=== PATIENT | female | born 1965 | race Caucasian/White ===

== ENCOUNTER 2017-10-04 15:43 | Observation (INO) | payer OTHER ==
--- OUTSIDE RECORDS SUMMARY | 2017-10-04 16:24 | XMS REPORT | Clinical Summary ---
:1965 Author Organization [facility] Address [address] [place] [id number] Care Team Providers Name Role Phone Asked, No Pcp Primary Care Provider Unavailable Allergies Active Allergy Reactions Severity Noted Date Comments Adhesive Tape-Silicones 06/22/2017 blisters Prochlorperazine Edisylate 06/22/2017 Legs go violently crazy Current Medications Prescription Sig. Disp. Refills Start End Date Status Date CYANOCOBALAMIN, Inject as Active VITAMIN B-12, (B-12 directed every COMPLIANCE INJ) 14 (fourteen) days. cholecalciferol, Take 2,000 Units Active vitamin D3, (VITAMIN by mouth daily. D3) 2,000 unit capsule capsule oxyCODone Take 1 tablet 180 tablet 0 11/02/19 Active (OxyCONTIN) 10 mg (10 mg total) by 8 18 tablet,oral mouth every 12 only,ext.rel.12 hr (twelve) hours ER tablet for 90 days. Max Daily Amount: 20 mg oxyCODone-acetaminop Take 1 tablet by 90 tablet 0 11/02/19 Active hen (PERCOCET) mouth every 4 8 18 10-325 mg per tablet (four) hours as needed for moderate pain for up to 90 days. traMADol (ULTRAM) 50 Take 50 mg by 08/04/19 Discontinued mg tablet mouth every 6 18 (six) hours as needed for moderate pain. HYDROMORPHONE HCL Inject as 08/04/19 Discontinued (DILAUDID INJ) directed. Via 18 med pump diphenhydrAMINE Take 25 mg by 08/04/19 Discontinued (BENADRYL) 25 mg mouth nightly as 18 tablet needed for sleep. naproxen sodium Take 2 tablets 08/04/19 Discontinued (ALEVE) 220 mg by mouth 18 capsule nightly. acetaminophen-codein Take 1 tablet by 08/04/19 Discontinued e (TYLENOL WITH mouth every 4 18 CODEINE #3) 300-30 (four) hours as mg per tablet needed for moderate pain. gabapentin Take 200 mg by 08/04/19 Discontinued (NEURONTIN) 100 mg mouth 3 (three) 18 capsule times a day. diazePAM (VALIUM) 5 Take 1 tablet (5 20 tablet 0 08/06/19 MG tablet mg total) by 8 18 mouth every 6 (six) hours as needed for anxiety for up to 5 days. gabapentin Take 1 capsule 21 capsule 0 08/08/19 (NEURONTIN) 400 mg (400 mg total) 8 18 capsule by mouth every 8 (eight) hours for 7 days. tiZANidine Take 1 tablet (4 40 tablet 0 08/31/19 (ZANAFLEX) 4 MG mg total) by 8 18 tablet mouth every 6 (six) hours as needed for muscle spasms for up to 30 days. amitriptyline Take 1 tablet 30 tablet 0 09/03/19 (ELAVIL) 50 MG (50 mg total) by 8 18 tablet mouth nightly for 30 days. bacitracin ointment Apply 1 60 g 0 09/03/19 tube application (1 g 8 18 total) topically 2 (two) times a day for 30 days. naloxegol (MOVANTIK) Take 1 tablet 30 tablet 0 09/04/19 25 mg tablet tablet (25 mg total) by 8 18 mouth daily before breakfast for [address] 1 patch on 10 patch 0 09/04/19 (TRANSDERM-SCOP) 1 the skin every 8 18 mg over 3 days third day for 30 days. sennosides-docusate Take 2 tablets 120 tablet 0 09/03/19 sodium (SENOKOT-S) by mouth 2 (two) 8 18 8.6-50 mg per tablet times a day for 30 days. 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 Spinal instability 07/10/2017 Encounters Date Type Specialty Care Team Description 07/20/2017 Hospital Encounter Rehabilitation Vani Montes S/Leigh Ann spinal fusion (Primary Dx); Sandi Morrissey MD Gait abnormality; 08/03/2017 Chronic bilateral low back pain without sciatica; Spinal instability, unspecified spinal region 07/18/2017 Procedure Pass General Surgery 07/14/2017 Anesthesia Event General Surgery Merissa Mcpherson MD 07/14/2017 Procedure Pass General Surgery 07/14/2017 Surgery General Surgery Benny, REVISION POSTERIOR Mal Rodriguez MD SPINAL INSTRUMENTATION / FUSION T3-S1 PELVIS 07/11/2017 Procedure Pass General Surgery 07/10/2017 Hospital Encounter Orthopedic Surgery Benny, Sagittal plane - Mal Rodriguez MD imbalance 07/20/2017 06/22/2017 Pre-Admit Testing Pre-Admission Testing Benny, Preop examination Appointment Mal Rodriguez MD (Primary Dx) after 10/03/2016 Social History Tobacco Use Types Packs/Day Years Used Date Current Every Day Smoker Cigarettes 1 18 Smokeless Tobacco: Never Used Alcohol Use Drinks/Week oz/Week Comments No Sex Assigned at Date Recorded Not on file Last Filed Vital Signs Vital Sign Reading Time Taken Blood Pressure 103/57 08/03/2017 3:49 PM CDT Pulse 87 08/03/2017 3:49 PM CDT Temperature 36.4 C (97.5 F) 08/03/2017 3:49 PM CDT Respiratory Rate 17 08/03/2017 3:49 PM CDT Oxygen Saturation 92% 08/03/2017 3:49 PM CDT Inhaled Oxygen Concentration - - Weight 109 kg (240 lb) 07/16/2017 6:56 AM CDT Height 167.6 cm (5' 6") 07/20/2017 6:00 PM CDT Body Mass Index 41.2 07/16/2017 6:56 AM CDT Plan of Treatment Health Maintenance Due Date Last Done Comments CERVICAL CANCER SCREENING 10/08/1984 BREAST CANCER SCREENING 10/08/2013 COLON CANCER SCREENING 10/08/2013 SHINGRIX VACCINE (#1) 10/08/2013 INFLUENZA VACCINE 11/22/2017 Implants Implanted Type Area Primary Grade Teacher Device Expiration Model / Serial Identifier Date / Lot System Spine Selnt For Dural Selng Exact 5ml Duraseal - [id number] Cardiovascular N/A: INTEGRA 06/21/2018 [id number] / Implanted: Qty: 1 on 07/14/2017 by Mal Zapata MD Implants N/A LIFESCIENCE / NEURO [id number] Paste Dbm Easy-Dispensing Wdmth Syr 10ml [address] - [id number] - [id number] Human Tissue N/A: MEDTRONIC SPINAL 03/09/2019 [id number] / Implanted: Qty: 1 on 07/14/2017 by Mal Zapata MD Implants N/A GRAFT [id number] / TECHNOLOGIES [id number] Paste Dbm Easy-Dispensing Wdmth Syr 10ml [address] - [id number] - [id number] Human Tissue N/A: MEDTRONIC SPINAL 01/05/2019 [id number] / Implanted: Qty: 1 on 07/14/2017 by Mal Zapata MD Implants N/A GRAFT [id number] / TECHNOLOGIES [id number] Chip Canc Allograft Leader Frzdri 30cc 1.7-10mm - [id number] - [id number] Human Tissue N/A: MUSCULOSKELETAL 04/20/2020 [id number] / Implanted: Qty: 1 on 07/14/2017 by Mal Zapata MD Implants N/A TRANSPLANT [id number] / FOUNDATION [id number] Chip Canc Allograft Leader Frzdri 30cc 1.7-10mm - [id number] - [id number] Human Tissue N/A: MUSCULOSKELETAL 12/08/2019 [id number] / Implanted: Qty: 1 on 07/14/2017 by Mal Zapata MD Implants N/A TRANSPLANT [id number] / FOUNDATION [id number] Paste Dbm Easy-Dispensing Wdmth Syr 10ml [address] - [id number] - [id number] Human Tissue N/A: MEDTRONIC SPINAL 03/09/2019 [id number] / Implanted: Qty: 1 on 07/14/2017 by Mal Zapata MD Implants N/A GRAFT [id number] / TECHNOLOGIES [id number] Paste Dbm Easy-Dispensing Wdmth Syr 10ml [address] - [id number] - [id number] Human Tissue N/A: MEDTRONIC SPINAL 01/05/2019 [id number] / Implanted: Qty: 1 on 07/14/2017 by Mal Zapata MD Implants N/A GRAFT [id number] / TECHNOLOGIES [id number] Screw [id number] 5.5 Mas 6.5x40 Cc - [id number] [id number] IMPLANT N/A: MEDTRONIC [id number] / Implanted: Qty: 3 on 07/14/2017 by Mal Zapata MD DEVICES N/A SOFAMOR DANEK / Screw [id number] 5.5 Mas 6.5x45 Cc - [id number] [id number] IMPLANT N/A: MEDTRONIC [id number] / Implanted: Qty: 4 on 07/14/2017 by Mal Zapata MD DEVICES N/A SOFAMOR DANEK / Sin [id number] 5.7pglovqzgeunqz330shvvet - [id number] IPM IMPLANT N/A: MEDTRONIC [id number] / Implanted: Qty: 2 on 07/14/2017 by Mal Zapata MD DEVICES N/A SOFAMOR DANEK / Screw [id number] 5.5 Mas 5.5x40 Cc - [id number] IPM IMPLANT N/A: MEDTRONIC [id number] / Implanted: Qty: 4 on 07/14/2017 by Mal Zapata MD DEVICES N/A SOFAMOR DANEK / Screw [id number] 5.5 Mas 6.5x55 Cc - [id number] IPM IMPLANT N/A: MEDTRONIC [id number] / Implanted: Qty: 1 on 07/14/2017 by Mal Zapata MD DEVICES N/A SOFAMOR DANEK / Screw [id number] 5.5 Mas 8.5x50 Cc - [id number] IPM IMPLANT N/A: MEDTRONIC [id number] / Implanted: Qty: 1 on 07/14/2017 by Mal Zapata MD DEVICES N/A SOFAMOR DANEK / Screw [id number] 5.5 Mas 8.5x55 Cc - [id number] IPM IMPLANT N/A: MEDTRONIC [id number] / Implanted: Qty: 1 on 07/14/2017 by Mal Zapata MD DEVICES N/A SOFAMOR DANEK / Screw [id number] Bs Cnmas 7.5x90 T/C - [id number] IPM IMPLANT N/A: MEDTRONIC [id number] / Implanted: Qty: 2 on 07/14/2017 by Mal Zapata MD DEVICES N/A SOFAMOR DANEK / Connector [id number] 5/6-6.0 Clsd Lat 25 - [id number] IPM IMPLANT N/A: MEDTRONIC [id number] / Implanted: Qty: 3 on 07/14/2017 by Mal Zapata MD DEVICES N/A SOFAMOR DANEK / Screw [id number] 5.5 Mas 5.5x25 Cc - [id number] IPM IMPLANT N/A: MEDTRONIC [id number] / Implanted: Qty: 2 on 07/14/2017 by Mal Zapata MD DEVICES N/A SOFAMOR DANEK / Screw [id number] 5.5 Mas 6.5x35 Cc - [id number] [id number] IMPLANT N/A: MEDTRONIC [id number] / Implanted: Qty: 1 on 07/14/2017 by Mal Zapata MD DEVICES N/A SOFAMOR DANEK / Screw [id number] 5.5 Mas 9.5x50 Cc - [id number] IPM IMPLANT N/A: MEDTRONIC [id number] / Implanted: Qty: 1 on 07/14/2017 by Mal Zapata MD DEVICES N/A SOFAMOR DANEK / Screw [id number] 5.5 Mas 10.5x50 Cc - [id number] IPM IMPLANT N/A: MEDTRONIC [id number] / Implanted: Qty: 1 on 07/14/2017 by Mal Zapata MD DEVICES N/A SOFAMOR DANEK / Sin [id number] 5.[address] 600mm - [id number] IPM IMPLANT N/A: MEDTRONIC 04/04/2020 [id number] / Implanted: Qty: 1 on 07/14/2017 by Mal Zapata MD DEVICES N/A SOFAMOR DANEK / [id number] Screw Bone Canc Lag 4x30mm Ns - [id number] Orthopedic N/A: MEDTRONIC [id number] / Implanted: Qty: 21 on 07/14/2017 by Mal Zapata MD Trauma Implants N/ A SOFAMOR DANEK / Screw Set Std Ti 1/4in 32mm - [id number] Spinal Implants N/A: MEDTRONIC SPINAL [id number] / Implanted: Qty: 7 on 07/14/2017 by Mal Zapata MD N/A AND BIOLOGICS / Connector Sin Spinal Ti 5.5x5.5mm Strl - [id number] Spinal Implants N/A: MEDTRONIC SPINAL [id number] / Implanted: Qty: 2 on 07/14/2017 by Mal Zapata MD N/A AND BIOLOGICS / Kit Hemostatic Matrix W/Thrombin 8ml Surgiflo - [id number] [facility] N/A: [facility]2018 2994 / Implanted: Qty: 3 on 07/14/2017 by Mal Zapata MD Implants; N/A / Expanders; [id number] Extenders; Surgical Wires Matrix Hmstc Floseal 10ml W/ Humn F2 - [id number] Surgical N/A: MICHAEL [id number] / Implanted: Qty: 1 on 07/14/2017 by Mal Zapata MD Implants; N/A HEALTHCARE CHIP / Expanders; [id number] Extenders; Surgical Wires Kit Hemostatic Matrix W/Thrombin 8ml Surgiflo - [id number] Surgical N/A: [facility] 08/21/2018 2994 / Implanted: Qty: 1 on 07/14/2017 by Mal Zapata MD Implants; N/A / Expanders; [id number] Extenders; Surgical Wires Drain Wound Hbls Round Radopaq Trocar Madeline White 0.18in 15fr - [id number] Surgical N/A: [facility] / Implanted: Qty: 1 on 07/14/2017 by Mal Zapata MD Implants; N/A REED & / Expanders; REED Extenders; Surgical Wires Drain Wound Hbls Round Radopaq Trocar Madeline White 0.18in 15fr - [id number] Surgical N/A: [facility] / Implanted: Qty: 1 on 07/14/2017 by Mal Zapata MD Implants; N/A REED & / Expanders; REED Extenders; Surgical Wires Kit Hemostatic Matrix W/Thrombin 8ml Surgiflo - [id number] Surgical N/A: [facility] 10/21/2018 2994 / Implanted: Qty: 2 on 07/14/2017 by Mal Zapata MD Implants; N/A / Expanders; [id number] Extenders; Surgical Wires Kit Hemostatic Matrix W/Thrombin 8ml Surgiflo - [id number] Surgical N/A: [facility] 09/21/2018 2994 / Implanted: Qty: 1 on 07/14/2017 by Mal Zapata MD Implants; N/A / Expanders; [id number] Extenders; Surgical Wires Kit Hemostatic Matrix W/Thrombin 8ml Surgiflo - [id number] Surgical N/A: [facility] 09/21/2018 2994 / Implanted: Qty: 1 on 07/14/2017 by Mal Zapata MD Implants; N/A / Expanders; [id number] Extenders; Surgical Wires Kit Hemostatic Matrix W/Thrombin 8ml Surgiflo - [id number] Surgical N/A: [facility] 10/21/2018 2994 / Implanted: Qty: 2 on 07/14/2017 by Mal Zapata MD Implants; N/A / Expanders; [id number] Extenders; Surgical Wires Kit Hemostatic Matrix W/Thrombin 8ml Surgiflo - [id number] Surgical N/A: [facility] 09/21/2018 2994 / Implanted: Qty: 1 on 07/14/2017 by Mal Zapata MD Implants; N/A / Expanders; [id number] Extenders; Surgical Wires Kit Hemostatic Matrix W/Thrombin 8ml Surgiflo - [id number] Surgical N/A: [facility] 09/21/2018 2994 / Implanted: Qty: 1 on 07/14/2017 by Mal Zapata MD Implants; N/A / Expanders; [id number] Extenders; Surgical Wires Kit Hemostatic Matrix W/Thrombin 8ml Surgiflo - [id number] Surgical N/A: [facility] 09/21/2018 2994 / Implanted: Qty: 1 on 07/14/2017 by Mal Zapata MD Implants; N/A / Expanders; [id number] Extenders; Surgical Wires Kit Hemostatic Matrix W/Thrombin 8ml Surgiflo - [id number] Surgical N/A: [facility] 09/21/2018 2994 / Implanted: Qty: 1 on 07/14/2017 by Mal Zapata MD Implants; N/A / Expanders; [id number] Extenders; Surgical Wires Explanted Type Area Primary Grade Teacher Device Expiration Model / Identifier Date Serial / Lot Screw [id number] 5.5 Mas 5.5x45 Cc - [id number] N/A: MEDTRONIC [id number] / Implanted: 07/14/2017 (Quantity not on file) IMPLANT N/A SOFAMOR DANEK / Explanted: Qty: 1 on 07/14/2017 DEVICES Procedures Procedure Name Priority Date/Time Associated Comments Diagnosis INTRAOPERATIVE Routine 07/14/2017 4:19 Results for this MONITORING PM CDT procedure are in the results section. ARTERIAL LINE Routine 07/14/2017 9:27 AM CDT Procedure Note - Nimo Dillard, [employer] TEAM MEMBER - 07/14/2017 9:27 AM CDT Arterial line Performed by: NIMO DILLARD Authorized by: YOVANY GODINEZ Patient Location: OR Start Time: 07/14/2017 8:00 AM End Time: 07/14/2017 8:05 AM Staff: Anesthesiologist: YOVANY GODINEZ Performed by: Anesthesiologist Pre-procedure: patient identified, IV checked, site and side verified, risks and benefits discussed, procedure verified, surgical consent complete, patient position confirmed, monitors and equipment checked and pre-op evaluation complete MSBT: antiseptic used, all elements of maximal sterile barrier technique followed, hand hygiene performed, cap/gown used by other personnel and solutions labeled TIme Out Performed: 07/14/2017 8:00 AM Indications: Indications: multiple ABGs and hemodynamic monitoring Anesthesia: Anesthesia: General Procedure Details: Arterial Line placement: Placed post induction Line placement site: Radial Line placement side: Left Arterial line gauge: 20 G Number of attempts: 2 Ultrasound guidance used: No Post-procedure: Post-procedure: Sterile dressing applied Post procedure circulation, sensation, movement: Normal and unchanged Patient tolerance: Patient tolerated the procedure well with no immediate complications CENTRAL LINE Routine 07/14/2017 8:55 AM CDT Procedure Note - Yovany Godinez MD - 07/14/2017 8:55 AM CDT Central line Performed by: YOVANY GODINEZ Authorized by: YOVAYN GODINEZ Patient Location: OR Start Time: 07/14/2017 8:25 AM End Time: 07/14/2017 8:38 AM Staff: Anesthesiologist: YOVANY GODINEZ Performed by: Anesthesiologist Preprocedure:patient identified, IV checked, site and side verified, risks and benefits discussed, procedure verified, surgical consent complete, patient position confirmed, monitors and equipment checked and pre-op evaluation complete MSBT: antiseptic used during central venous catheter insertion, all elements of maximal sterile barrier technique followed, hand hygiene performed prior to central venous catheter insertion, cap/gown used by other personnel during central venous catheter insertion, solutions labeled and all ports not used during insertion clamped TIme Out Performed: 07/14/2017 8:25 AM Indications: Indications: Central pressure monitoring and vascular access Anesthesia: Anesthesia: General Procedure details: Patient position: Supine Catheter Type: Double lumen Catheter Size: 8 Fr Catheter Site: internal jugular vein Catheter site laterality: Right Pre-procedure: Landmarks identified Ultrasound guidance used: Yes Ultrasound image saved: Yes Number of attempts: 1 Successful placement: Yes Guidewire removal: Guidewire removal is confirmed Guidewire removal witnessed by: NIMO DILLARD Post-procedure: Post-procedure: line sutured, sterile dressing applied per protocol and ports flushed with saline Post-procedure: Blood cleaned with CHG and sterile caps on all hubs Assessment: Blood return through all ports and free fluid flow Patient tolerance: Patient tolerated the procedure well with no immediate complications REVISION POSTERIOR SPINAL 07/14/2017 7:30 AM CDT Sagittal plane imbalance INSTRUMENTATION / FUSION T3-S1 PELVIS Case Notes PRONE POSITION, EST 6 HRS, CELL SAVER, SSEP W/ MOTORS PRO AXIS TABLE, DR JON CO-SURGEON Special Needs PRONE POSITION, EST 6 HRS, CELL SAVER, SSEP W/ MOTORS PRO AXIS TABLE, DR JON CO-SURGEON after 10/03/2016 Results Estimated GFR (07/31/2017 5:29 AM)Only the most recent of14 resultswithin the time period is included. Component Value Ref Range GFR Non Af Amer >90 mL/min/1.73 m2 GFR Af Amer >90 mL/min/1.73 m2 Comment: Chronic kidney disease: <60 mL/min/1.73m2 Kidney failure: <15 mL/min/1.73m2 The estimated GFR is calculated from the IDMS-traceable Modification of Diet in Renal Disease Equation. The accuracy of the calculation is poor when the creatinine is normal. Calculated values >90 mL/min/1.73m2 are not reported. This equation has not been validated in children (<18 years), women, the elderly (>70 years), or ethnic groups other than Caucasians and Americans. Specimen Performing Laboratory Plasma specimen [facility] DEPARTMENT OF PATHOLOGY AND GENOMIC MEDICINE [address] [place] [address] [id number] CBC with platelet and differential (07/31/2017 5:29 AM)Only the most recent of14 resultswithin the time period is included. Component Value Ref Range WBC 7.49 4.50 - 11.00 k/uL RBC 3.06 (L) 4.20 - 5.50 m/uL HGB 9.1 (L) 12.0 - 16.0 g/dL HCT 28.8 (L) 37.0 - 47.0 % MCV 94.1 82.0 - 100.0 fL MCH 29.7 27.0 - 34.0 pg MCHC 31.6 31.0 - 37.0 g/dL RDW - SD 51.2 37.0 - 55.0 fL MPV 9.2 8.8 - 13.2 fL Platelet count 294 150 - 400 k/uL Nucleated RBC 0.40 /100 WBC Neutrophils 52.5 39.0 - 69.0 % Lymphocytes 35.6 25.0 - 45.0 % Monocytes 6.7 0.0 - 10.0 % Eosinophils 4.5 0.0 - 5.0 % Basophils 0.3 0.0 - 1.0 % Immature granulocytes 0.4Comment: "Immature granulocytes" 0.0 - 1.0 % (promyelocytes, myelocytes, metamyelocytes) Specimen Performing Laboratory Blood [facility] DEPARTMENT OF PATHOLOGY AND [facility] [address] [place] [address] [id number] Basic metabolic panel (07/31/2017 5:29 AM)Only the most recent of14 resultswithin the time period is included. Component Value Ref Range Sodium 137 135 - 148 mEq/L Potassium 4.0 3.5 - 5.0 mEq/L Chloride 98 98 - 112 mEq/L CO2 31 24 - 31 mEq/L Anion gap 8 7 - 15 mEq/L Comment: Starting from July , anion gap calculation no longer incorporates potassium. Please note the change. BUN 11 6 - 20 mg/dL Creatinine 0.5 0.5 - 0.9 mg/dL Glucose 106 (H) 65 - 99 mg/dL Calcium 8.8 8.3 - 10.2 mg/dL Specimen Performing Laboratory Plasma specimen [facility] DEPARTMENT OF PATHOLOGY AND GENOMIC MEDICINE [address] [place] [address] [phone] Manual differential (07/21/2017 5:33 AM) Component Value Ref Range Manual differential PERFORMED Neutrophils 56.0 39.0 - 69.0 % Lymphocytes 30.0 25.0 - 45.0 % Monocytes 7.0 0.0 - 10.0 % Eosinophils 7.0 (H) 0.0 - 5.0 % Basophils 0.0 0.0 - 1.0 % Metamyelocytes 0 % Promyelocytes 0 % Platelet slide review Benedicto adequate Anisocytosis Moderate Polychromasia Moderate Ovalocytes Moderate Specimen Performing Laboratory [facility] DEPARTMENT OF PATHOLOGY AND [facility] [address] [place] [address] [id number] Magnesium level (07/20/2017 4:00 AM)Only the most recent of9 resultswithin the time period is included. Component Value Ref Range Magnesium 2.0 1.6 - 2.6 mg/dL Specimen Performing Laboratory Plasma specimen [facility] DEPARTMENT OF PATHOLOGY AND [facility] [address] [place] [address] [id number] Troponin (07/19/2017 2:00 AM)Only the most recent of2 resultswithin the time period is included. Component Value Ref Range Troponin <0.30 0.00 - 0.30 ng/mL Comment: 0.30 - 1.49 ng/mlMay indicate increased risk of acute coronary syndrome. >=1.5 ng/mlConsistent with acute myocardial infarction. The diagnostic value of a single normal or non-diagnostic result is questionable.Serial samples at 2-6 hour intervals are required to rule out acute myocardial injury. Specimen Performing Laboratory Plasma specimen [facility] DEPARTMENT OF PATHOLOGY AND GENOMIC MEDICINE [address] [place] [address] [phone] B natriuretic peptide (07/18/2017 5:00 AM)Only the most recent of2 resultswithin the time period is included. Component Value Ref Range BNP 18 0 - 100 pg/mL Specimen Performing Laboratory Blood [facility] DEPARTMENT OF PATHOLOGY AND GENOMIC MEDICINE [address] [place] [address] [phone] Phosphorus level (07/18/2017 4:00 AM)Only the most recent of6 resultswithin the time period is included. Component Value Ref Range Phosphorus 3.1 2.4 - 4.5 mg/dL Specimen Performing Laboratory Plasma specimen [facility] DEPARTMENT OF PATHOLOGY AND GENOMIC MEDICINE [address] [place] [address] 98523 XR Abdomen 1 Vw Portable (07/17/2017 4:27 PM) Specimen Performing [facility] [address] [place] [address] 51883 Narrative XR ABDOMEN 1 VW PORTABLE CLINICAL INDICATION:ABDOMINAL PAIN, kub COMPARISON:09/04/2015 IMPRESSION: Bowel gas pattern is nonspecific with gas in top normal loops of large and small bowel, correlate for ileus. Extensive changes of lumbosacral fusion are present with additional hardware in place from prior noting stable intervertebral prosthesis at the lumbosacral junction. A right sacral device is noted with associated leads. No radiopaque calculi are identified. [facility]-[id number] Procedure Note Hm Interface, Radiology Results Incoming - 07/17/2017 4:35 PM CDT XR ABDOMEN 1 VW PORTABLE CLINICAL INDICATION: ABDOMINAL PAIN, kub COMPARISON: 09/04/2015 IMPRESSION: Bowel gas pattern is nonspecific with gas in top normal loops of large and small bowel, correlate for ileus. Extensive changes of lumbosacral fusion are present with additional hardware in place from prior noting stable intervertebral prosthesis at the lumbosacral junction. A right sacral device is noted with associated leads. No radiopaque calculi are identified. [facility]-[id number] Smear review (07/17/2017 11:00 AM) Component Value Ref Range Platelet slide review Benedicto adequate Specimen Performing Laboratory [facility] DEPARTMENT OF PATHOLOGY AND GENOMIC MEDICINE [address] [place] [address] 19714 POC glucose (07/16/2017 7:25 AM)Only the most recent of8 resultswithin the time period is included. Component Value Ref Range POC glucose 151 (H) 65 - 99 mg/dL Comment: [facility] Notified RN Meter ID: [id number] Umbrella Cutter: Darnell Moreno Specimen Performing Laboratory [facility] DEPARTMENT OF PATHOLOGY AND GENOMIC MEDICINE [address] [place] [address] 99924 Ionized calcium (07/16/2017 2:19 AM) Component Value Ref Range pH 7.46 Ionized calcium 1.11 1.11 - 1.32 mmol/L Specimen Performing Laboratory Plasma specimen [facility] DEPARTMENT OF PATHOLOGY AND GENOMIC MEDICINE [address] [place] [address] 10547 ECG 12 lead (07/15/2017 5:19 PM) Component Value Ref Range Ventricular rate 124 Atrial rate 124 WI interval 142 QRSD interval 72 QT interval 312 QTC interval 448 P axis 1 67 QRS axis 1 -5 T wave axis 40 EKG impression Sinus tachycardia-Inferior infarct , age undetermined-Abnormal ECG-No previous ECGs available- Specimen Performing Laboratory [facility] MUSE [address] [place] [address] 42551 Prothrombin time with INR (07/15/2017 5:00 PM)Only the most recent of2 resultswithin the time period is included. Component Value Ref Range Prothrombin time 14.0 12.0 - 15.0 sec INR 1.1 Comment: The International Normalized Ratio (INR) is a therapeutic monitoring tool for patients who are stable on oral anticoagulant therapy. An INR of 2.0-3.0 is suggested for deep vein thrombosis/pulmonary embolism. Specimen Performing Laboratory [facility] [facility] [address] [place] [id number] XR Chest 1 Vw Portable (07/15/2017 2:31 PM)Only the most recent of2 resultswithin the time period is included. Specimen Performing Laboratory [facility] [address] [place] [id number] Narrative EXAMINATION:XR CHEST 1 VW PORTABLE CLINICAL HISTORY:Post-op surgery COMPARISON:July 14 IMPRESSION: Atelectasis or infiltrate lung bases The heart remains enlarged No interval change in support lines [facility]-[id number] Procedure Note Interface, Radiology Results Incoming - 07/15/2017 2:46 PM CDT EXAMINATION: XR CHEST 1 VW PORTABLE CLINICAL HISTORY: Post-op surgery COMPARISON: July 14 IMPRESSION: Atelectasis or infiltrate lung bases The heart remains enlarged No interval change in support lines [id number] Arterial blood gas (07/15/2017 12:51 PM)Only the most recent of2 resultswithin the time period is included. Component Value Ref Range pH, arterial 7.44 7.35 - 7.45 pCO2, arterial 40 35 - 45 mmHg pO2, arterial 106 (H) 80 - 90 mmHg Bicarbonate, arterial 26.8 21.0 - 28.0 mmol/L Base excess, arterial 3 (H) -2 - 2 mEq/L O2 saturation, arterial 99 95 - 100 % Specimen Performing Laboratory Blood [facility] DEPARTMENT OF PATHOLOGY AND GENOMIC MEDICINE [address] [place] [address] Urinalysis screen and microscopy, with reflex to culture (07/14/2017 8:20 PM) Component Value Ref Range Specimen site Catheterized Color, UA Yellow Appearance, UA Clear Specific gravity, UA 1.020 1.001 - 1.035 pH, UA 5.0 5.0 - 8.5 Protein, UA Negative Negative Glucose, UA Negative Negative Ketones, UA Negative Negative Bilirubin, UA Negative Negative Blood, UA Moderate (A) Negative Nitrite, UA Negative Negative Urobilinogen, UA <2.0 <2.0 Leukocyte esterase, UA Small (A) Negative Epithelial cells, UA 1 /HPF WBC, UA 36 (H) 0 - 4 /HPF RBC, UA 37 (H) 0 - 2 /HPF Bacteria, UA Few None seen Yeast, UA None seen Yeast with pseudohyphae, UA None seen Specimen Performing Laboratory Urine [facility] DEPARTMENT OF PATHOLOGY AND [facility] [address] [place] [address] Gram stain (07/14/2017 8:20 PM) Component Value Ref Range Gram stain result No WBC's or organisms seen. Comment: Specimen Information Specimen Source: Urine Specimen Site: Catheterized Specimen Performing Laboratory Urine - Catheterized [facility] DEPARTMENT OF PATHOLOGY AND GENOMIC MEDICINE [address] [place] [address] Urine culture (07/14/2017 8:20 PM) Component Value Ref Range Urine culture isolate No growth after 2 days. Comment: Specimen Information Specimen Source: Urine Specimen Site: Catheterized Specimen Performing Laboratory Urine - Catheterized [facility] DEPARTMENT OF PATHOLOGY AND [facility] [address] [place] [address] Ionized calcium, arterial (07/14/2017 7:42 PM)Only the most recent of5 resultswithin the time period is included. Component Value Ref Range Ionized calcium, arterial 1.08 (L) 1.11 - 1.32 mmol/L Specimen Performing Laboratory Blood [facility] DEPARTMENT OF PATHOLOGY AND GENOMIC MEDICINE [address] [place] [address] Partial thromboplastin time, activated (07/14/2017 7:42 PM) Component Value Ref Range PTT 28.0 23.0 - 36.0 sec Comment: PTT therapeutic range for unfractionated heparin is 61.0-112.0 seconds which corresponds to Anti-Xa 0.3-0.7 U/ml. Specimen Performing Laboratory Blood [facility] DEPARTMENT OF PATHOLOGY AND GENOMIC MEDICINE [address] [place] [address] Intraoperative monitoring (07/14/2017 4:19 PM) Narrative INTRAOPERATIVE NEURO MONITORING Patient Name: Siri Iniguez Date of : 1965 Gender: female Surgical Procedure: Revision PSIF T2-S1 Pelvis- Posterior OR: (RICK) Room #: (19) Tech #1: (JN) Start Time: (09:25) End Time: (15:52) Total Time (in hours): (7) Date of Service: 07/14/17 Physician IOM Time: 7 Hours Procedure(s) performed During IOM: 18410, 96033, 77052 ICD10: M41.9 Stimulation Parameters Ulnar nerves individually stimulated at the wrist. Rate 4.7 Hz, Intensity 20-60 mA, Duration 0.3 ms, Filters 30-500 Hz, Notch Off Posterior Tibial nerves individually stimulated at the ankle., Rate 4.7 Hz, Intensity 30 - 80 mA, Duration 0.3 ms, Filters 30-500 Hz, Notch Off Motor strip stimulated anterior to C3 and C4 with alternating polarities, Intensity 500 V Train Rate 4-5 KEANU 2-3 ms, Filter 30-2KHz Notch off Technical Summary Intraoperative neurophysiological monitoring was performed using a combination of upper and lower extremity somatosensory evoked potentials (SEP), transcranial electrical motor potentials (TcMEP) and running electromyography (EMG) of the innervated muscle groups. A real time connection was established by the monitoring technologist with the examining neurologist throughout the operative procedure. Lower extremity somatosensory evoked potentials were recorded peripherally at the popliteal fossa and centrally at the cervical and cortical levels following posterior tibial nerve stimulation at the ankle. Upper extremity somatosensory evoked potentials were recorded centrally at the cervical and cortical levels following ulnar nerve stimulation at the wrist. There were no significant surgically related changes in amplitude or latency to the cervical and/or cortical SEP responses throughout the surgical procedure. TcMEPs were recorded peripherally from the upper and lower extremities following alternating polarity motor strip stimulation. Post-induction TcMEP responses to motor cortex stimulation were clear and reproducible bilaterally. The left quad and left gastroc MEPS were attenuated at closing. Free running EMG of the innervated muscle groups was monitored continuously throughout the operative procedure with no sustained neurotonic discharges noted. Conclusion The left quad and left gastroc MEPS were attenuated at closing. Free running EMG of the innervated muscle groups was monitored continuously throughout the operative procedure with no sustained neurotonic discharges noted.All values were reported to the surgeon in real time. Sodium level, syringe (07/14/2017 3:44 PM)Only the most recent of4 resultswithin the time period is included. Component Value Ref Range Sodium, syringe 136 135 - 148 mEq/L Specimen Performing Laboratory Blood [facility] DEPARTMENT OF PATHOLOGY AND [address] [address] Potassium, syringe (07/14/2017 3:44 PM)Only the most recent of4 resultswithin the time period is included. Component Value Ref Range Potassium, syringe 4.0 3.5 - 5.0 mEq/L Specimen Performing Laboratory Blood [facility] DEPARTMENT OF PATHOLOGY AND [facility] [address] [place] [address] Hemoglobin, syringe (07/14/2017 3:44 PM)Only the most recent of4 resultswithin the time period is included. Component Value Ref Range Hemoglobin, syringe 10.0 (L) 12.0 - 16.0 g/dL Specimen Performing Laboratory Blood [facility] PATH[facility] [address] [address] Glucose level, syringe (07/14/2017 3:44 PM)Only the most recent of4 resultswithin the time period is included. Component Value Ref Range Glucose, syringe 190 (H) 65 - 99 mg/dL Specimen Performing Laboratory Blood [facility] PATHOLOGY [address] [address] Arterial blood gas, corrected (07/14/2017 3:44 PM)Only the most recent of4 resultswithin the time period is included. Component Value Ref Range pH, arterial 7.36 7.35 - 7.45 pCO2, arterial 41 35 - 45 mmHg pO2, arterial 190 (H) 80 - 90 mmHg Temperature, Celsius 37.0 Degrees C O2 saturation, arterial 100 95 - 100 % pH, arterial corrected 7.36 pCO2, arterial corrected 41 mmHg pO2, arterial corrected 190 mmHg Base excess, arterial -2 -2 - 2 mEq/L Specimen Performing Laboratory Blood [facility] DEPARTMENT OF PATHOLOGY AND GENOMIC MEDICINE [address] [place] [address] XR Thoracolumbar Spine 2 Vw (07/14/2017 3:30 PM) Specimen Performing Laboratory [facility] [address] [place] [address] Narrative EXAMINATION: XR THORACOLUMBAR SPINE 2 VW CLINICAL HISTORY: Intraoperative COMPARISON:Lumbar spine radiograph 09/04/2015 IMPRESSION: Single lateral intraoperative radiograph of the lumbar spine was obtained. The most inferior fully formed disc is presumed L5-S1. Evaluation of surgical instrumentation level is highly limited given decreased bone mineral density and significant scoliosis. Status post posterior spinal instrumentation with rods and screws of the visualized thoracic and lumbar spine. Localizing surgical instrumentation is present posteriorly, with the most inferior surgical localizing device at the level of the second most inferior pedicle screws, with retractors present superior to this at approximately the level of the fourth most inferior pedicle screws. [id number] Procedure Note Interface, Radiology Results Incoming - 07/14/2017 4:54 PM CDT EXAMINATION: XR THORACOLUMBAR SPINE 2 VW CLINICAL HISTORY: Intraoperative COMPARISON: Lumbar spine radiograph 09/04/2015 IMPRESSION: Single lateral intraoperative radiograph of the lumbar spine was obtained. The most inferior fully formed disc is presumed L5-S1. Evaluation of surgical instrumentation level is highly limited given decreased bone mineral density and significant scoliosis. Status post posterior spinal instrumentation with rods and screws of the visualized thoracic and lumbar spine. Localizing surgical instrumentation is present posteriorly, with the most inferior surgical localizing device at the level of the second most inferior pedicle screws, with retractors present superior to this at approximately the level of the fourth most inferior pedicle screws. [id number] OR FL > I Hour (07/14/2017 2:20 PM) Specimen Performing Laboratory [facility] [address] [place] [address] Narrative EXAMINATION:OR FL 1 HOUR C-arm fluoroscopy was requested in OR. Location: [address] room#19 O-ARM SCANS:3 Procedure:REVISION POSTERIOR SPINAL INSTRUMENTATION / FUSION T3-S1 PELVIS Start:11:00am End:2:20pm Fluoro Time:11sec Dose(mGy):171.53 Tech:TN Date:07/14/17 IMPRESSION: Separate operative report will be issued by the physician performing the procedure. [id number] Procedure Note Hm Interface, Radiology Results Incoming - 07/14/2017 9:48 PM CDT EXAMINATION: OR FL 1 HOUR C-arm fluoroscopy was requested in OR. Location: [address] room#19 O-ARM SCANS:3 Procedure:REVISION POSTERIOR SPINAL INSTRUMENTATION / FUSION T3-S1 PELVIS Start:11:00am End:2:20pm Fluoro Time:11sec Dose(mGy):171.53 Tech:TN Date:07/14/17 IMPRESSION: Separate operative report will be issued by the physician performing the procedure. [id number] Surgical pathology request (07/14/2017 7:17 AM) Component Value Ref Range Surgical pathology report See link below for PDF Lab Report Result status This is Final Report to [id number] Specimen Performing Laboratory [facility] DEPARTMENT OF PATHOLOGY AND GENOMIC MEDICINE [address] [place] [address] Prepare platelets (07/13/2017 1:45 PM) Component Value Ref Range Product name Apheresis Platelet ACDA LRIRR #1 Unit number [id number] Product code [id number] Dispense status Transfused Blood expiration date Blood type code 7300 Blood type B POSITIVE Specimen Performing Laboratory [facility]PARTMENT OF PATHOLOGY AND GENOMIC MEDICINE [address] [place] [address] Prepare fresh frozen plasma (07/13/2017 1:45 PM) Component Value Ref Range Product name Thawed Plasma Unit number [id number] Product code [id number] Dispense status Transfused Blood expiration date Blood type code 6200 Blood type A POSITIVE Product name Thawed Plasma Unit number [id number] Product code [id number] Dispense status Transfused Blood expiration date Blood type code 6200 Blood type A POSITIVE Specimen Performing Laboratory [facility] DEPARTMENT OF PATHOLOGY AND GENOMIC MEDICINE [address] [place] [address] Prepare RBC, 6 Units (07/13/2017 1:45 PM) Component Value Ref Range Product name Red Blood Cells -1, Leukored Unit number [id number] Product code [id number] Dispense status Transfused Blood expiration date Blood type code 6200 Blood type A POSITIVE Product name Red Blood Cells -1, Leukored Unit number [id number] Product code [id number] Dispense status Transfused Blood expiration date Blood type code 6200 Blood type A POSITIVE Product name Red Blood Cells -1, Leukored Unit number [id number] Product code B9922E19 Dispense status Returned to BB not transfused Blood expiration date Blood type code 6200 Blood type A POSITIVE Product name Red Blood Cells -1, Leukored Unit number [id number] Product code J3045C02 Dispense status Returned to BB not transfused Blood expiration date Blood type code 6200 Blood type A POSITIVE Product name Red Blood Cells -1, Leukored Unit number [id number] Product code G2383R38 Dispense status Returned to BB not transfused Blood expiration date Blood type code 6200 Blood type A POSITIVE Product name Red Blood Cells -1, Leukored Unit number [id number] Product code [id number] Dispense status Returned to BB not transfused Blood expiration date Blood type code 6200 Blood type A POSITIVE Specimen Performing Laboratory [facility] OF PATHOLOGY AND GENOMIC MEDICINE [address] [place] [address] Type and screen (07/13/2017 1:45 PM)Only the most recent of2 resultswithin the time period is included. Component Value Ref Range ABO grouping A Rh type POS Antibody screen (gel) NEG Specimen Performing Laboratory Blood [facility] OF PATHOLOGY AND GENOMIC MEDICINE [address] [place] [address] CBC hemogram (07/11/2017 5:40 AM) Component Value Ref Range WBC 6.57 4.50 - 11.00 k/uL RBC 4.05 (L) 4.20 - 5.50 m/uL HGB 12.3 12.0 - 16.0 g/dL HCT 37.6 37.0 - 47.0 % MCV 92.8 82.0 - 100.0 fL MCH 30.4 27.0 - 34.0 pg MCHC 32.7 31.0 - 37.0 g/dL RDW - SD 47.0 37.0 - 55.0 fL MPV 10.1 8.8 - 13.2 fL Platelet count 203 150 - 400 k/uL Nucleated RBC 0.00 /100 WBC Specimen Performing Laboratory Blood [facility] OF PATHOLOGY AND GENOMIC MEDICINE [address] [place] [address] Hemoglobin A1c (06/22/2017 5:35 PM) Component Value Ref Range Hemoglobin A1C 5.8 (H) 4.0 - 5.6 % Comment: HbA1c cutoffs for diagnosing diabetes: 4.0% - 5.6%=normal 5.7% - 6.4%=increased risk for diabetes (prediabetes) >=6.5%=diabetes Goals for glycemic control (ADA 2016) < 7.0%Target for non adults with diabetes. More or less stringent targets may be appropriate for individual patients. <7.5% Target for Children and adolescents with type 1 diabetes. Specimen Performing Laboratory Blood [facility]PART[facility] OF PATHOLOGY AND GENOMIC MEDICINE [address] [place] [address] after 10/03/2016 Insurance Payer Benefit Plan / Group Subscriber ID Type Phone Address [employer] P[employer] HMO/POS xxxxxxxxxxx HMO Home: [facility] [phone] [phone] SIRI INIGUEZ Reconstructive Self 1965 Home: [id number] Surgery [phone] [phone] SIRI INIGUEZ [employer] Self 1965 Home: [facility] Liability [phone] [phone]
[2017-10-04] MEDS ORDERED: NACHLORIDE 0.45% 1,000 ML IV SCH ×2 (17:00→18:00)
[2017-10-04] MEDS ORDERED: PNEUMOCOCCAL VACCINE 0.5 ML IMVAC ONE (17:00)
[2017-10-04] MEDS ORDERED: FENTANYL CITR 100 MCG/2 ML IV PRN (17:02)
[2017-10-04] MEDS ORDERED: ALBUTEROL 2.5 MG/3 ML NEB SOL IH PRN (17:03)
[2017-10-04 17:17] VITALS: BMI 38.2
[2017-10-04 17:35] LABS: Absolute Lymphocytes (CBC) 2.2 K/uL (0.7-4.9); Absolute Monocytes 0.5 K/uL (0.1-1.3); Absolute Neutrophil 3.5 K/uL (1.8-8.0); Basophils % 0.5 % (0-1.3); Eosinophils % 3.3 % (0-4.4); Lymphocytes % 33.9 % (15.3-44.8); MCH 28.9 pg (27.0-35.0); MCV 86.1 fL (80-100); MPV 7.3 fL (7.6-11.3); Monocytes % 7.1 % (3.3-12.3); RBC Red Blood Cell Count 4.07 M/uL (3.86-4.86)
[2017-10-04 17:39] LABS: Protime INR 1.03
[2017-10-04 17:47] LABS: Bicarbonate 30 mEq/L (21-31); Glucose Level 109 mg/dL (65-120); Potassium 4.1 mEq/L (3.6-5.0); Sodium Level 136 mEq/L (135-145)
[2017-10-04 17:53] LABS: ALT/SGPT 15 IU/L (10-60); AST/SGOT 19 IU/L (10-42); Albumin 3.8 g/dL (3.2-5.5); Alkaline Phosphatase 78 IU/L (42-121); BUN Blood Urea Nitrogen 8 mg/dL (6-20); Bilirubin Direct 0.1 mg/dL (0-0.2); Bilirubin Total 0.3 mg/dL (0.3-1.2); Magnesium 1.9 mg/dL (1.8-2.5); Phosphorus 4.6 mg/dL (2.5-4.3); Protein, Total 7.6 g/dL (6.0-8.3)
[2017-10-04] MEDS ORDERED: LOPERAMIDE HCL 2 MG CAPSULE PO PRN (18:00)
[2017-10-04] MEDS ORDERED: DIPHENHYDRAMINE 25 MG TAB/CAP PO PRN (18:00)
[2017-10-04] MEDS ORDERED: ONDANSETRON 4 MG (ODT) TAB PO PRN (18:00)
[2017-10-04] MEDS ORDERED: ACETAMINOPHEN 325 MG TABLET PO PRN (18:00)
[2017-10-04] MEDS ORDERED: POLYETHYL GLY 3350 17 GM/DOSE PO PRN (18:00)
[2017-10-04] MEDS ORDERED: ONDANSETRON 4 MG/2 ML VIAL IV PRN (18:00)
[2017-10-04 18:25] LABS: Thyroid Stimulating Hormone 1.22 uIU/mL (0.34-5.60)
--- NOTE | 2017-10-04 19:57 | RAD REPORT ---
EXAM DESCRIPTION: VAS - Extrem Venous W Compress Titus - 10/04/2017 7:36 pm CLINICAL HISTORY: Leg pain and swelling, erythematous region overlying left common femoral vein kelsi on COMPARISON: None. TECHNIQUE: Real-time sonographic evaluation of the bilateral lower extremity deep venous systems was performed. FINDINGS: Normal compressibility, flow augmentation, phasic flow and spontaneous flow are identified in the left and right lower extremity deep venous systems. No intraluminal filling defects seen. In the area of cutaneous abnormality there is no abscess or drainable fluid collection. IMPRESSION: No DVT in either lower extremity.
--- NOTE | 2017-10-04 20:08 | RAD REPORT ---
EXAM DESCRIPTION: RAD - Chest Single View - 10/04/2017 7:43 pm CLINICAL HISTORY: Abscess, severe edema, shortness of breath COMPARISON: December 2015 TECHNIQUE: AP portable chest image was obtained 1926 hours . FINDINGS: Chronic interstitial lung disease is evident similar to comparison. No mass, consolidation or significant failure/ volume overload finding. Heart and vasculature are normal. No measurable ple ural effusion and no pneumothorax. No acute bone finding. Scoliosis rods are in place. No acute aorti c findings suspected. IMPRESSION: No acute cardiopulmonary process. Chronic interstitial lung disease is present similar to comparison. Minimal interstitial edema or inf iltrate could be masked in this setting of chronic lung disease.
[2017-10-04] MEDS: IPRATROPIUM BROM 0.5MG/2.5ML IH SCH (20:11)
[2017-10-04] MEDS: ALBUTEROL 2.5 MG/3 ML NEB SOL IH SCH (20:11)
[2017-10-04] MEDS ORDERED: VANCOMYCIN/NS 1 gm 1 GM/250 ML BAG IVPB SCH (21:00)
[2017-10-04] MEDS ORDERED: Oxycodone HCl/Acetaminophen 1 TAB TAB PO PRN (21:03)
[2017-10-04] MEDS ORDERED: DIAZEPAM 5 MG TABLET PO PRN (21:03)
[2017-10-04] MEDS ORDERED: OXYCODONE HCL 5 MG TAB PO PRN (21:39)
[2017-10-04] MEDS: GABAPENTIN 300 MG CAP PO SCH (22:00)
--- NOTE | 2017-10-04 23:00 | EKG ---
Test Date: 2017-10-04 Test Time: 17:19:34 Talent Development Director: ROOSEVELT MEASUREMENT RESULTS: Intervals: Rate: 80 HI: 170 QRSD: 82 QT: 408 QTc: 470 [place]: P: 52 HI: 170 QRS: 9 T: 28 INTERPRETIVE STATEMENTS: Normal sinus rhythm Possible Inferior infarct, age undetermined Cannot rule out Anterior infarct, age undetermined Abnormal ECG Compared to ECG 01/22/2016 12:17:59 Sinus bradycardia no longer present Myocardial infarct finding still present Electronically Signed On 10-04-17 22:59:[address]
[2017-10-05 00:11] LABS: Urine Appearance CLEAR; Urine Bilirubin NEGATIVE (NEG); Urine Blood NEGATIVE (NEG); Urine Color YELLOW; Urine Glucose NEGATIVE (NEG); Urine Protein NEGATIVE (NEG); Urine Urobilinogen 0.2 mg/dL (0.2-1.0)
[2017-10-05 00:14] LABS: Urine Microscopic Reflex NO UMIC
[2017-10-05] MEDS: FUROSEMIDE 20 MG/ 2ML VIAL IV SCH ×3 (00:21→18:00)
[2017-10-05] MEDS: ALBUTEROL 2.5 MG/3 ML NEB SOL IH SCH ×3 (01:40→13:54)
[2017-10-05] MEDS: IPRATROPIUM BROM 0.5MG/2.5ML IH SCH ×3 (01:40→13:54)
[2017-10-05 06:30] LABS: Absolute Lymphocytes (CBC) 2.1 K/uL (0.7-4.9); Absolute Monocytes 0.5 K/uL (0.1-1.3); Absolute Neutrophil 2.9 K/uL (1.8-8.0); Basophils % 0.2 % (0-1.3); Eosinophils % 3.4 % (0-4.4); Lymphocytes % 36.7 % (15.3-44.8); MCH 29.4 pg (27.0-35.0); MCV 85.4 fL (80-100); MPV 7.5 fL (7.6-11.3); Monocytes % 8.4 % (3.3-12.3); RBC Red Blood Cell Count 3.63 M/uL (3.86-4.86)
[2017-10-05 06:44] LABS: Magnesium 1.9 mg/dL (1.8-2.5); Potassium 3.7 mEq/L (3.6-5.0)
[2017-10-05] MEDS ORDERED: TIZANIDINE 4 MG TABLET PO SCH (08:00)
[2017-10-05] MEDS ORDERED: KCL 20 MEQ/100 mL IVPB 20 MEQ/100 ML BAG IV SCH (08:00)
[2017-10-05] MEDS ORDERED: PANTOPRAZOLE 40MG TABLET PO SCH (09:00)
[2017-10-05] MEDS ORDERED: VITAMIN D PO SCH (09:00)
[2017-10-05] MEDS ORDERED: DOCUSATE NA 100 MG CAP PO SCH (09:00)
[2017-10-05] MEDS ORDERED: OMEPRAZOLE 40 MG CAPSULE PO SCH (09:00)
[2017-10-05] MEDS ORDERED: POTASSIUM CL SA 10 MEQ TAB PO SCH (09:00)
[2017-10-05] MEDS: GABAPENTIN 300 MG CAP PO SCH (09:00)
[2017-10-05] MEDS ORDERED: ENOXAPARIN 40 MG/0.4 ML SQ SCH (09:00)
[2017-10-05] MEDS ORDERED: VANCOMYCIN 2 GM in NA CHLORIDE 0.9% 500 ML IVPB SCH (09:00)
[2017-10-05] MEDS ORDERED: VITAMIN D 1000 UNIT TAB PO SCH (09:00)
[2017-10-05] MEDS ORDERED: Ringers Lactate 1,000 ML IV ONE (10:18)
[2017-10-05] MEDS ORDERED: PROPOFOL 200 MG/20 ML VIAL IV ONE (11:01)
[2017-10-05] MEDS ORDERED: LIDOCAINE 2% MPF 5 ML VIAL ONE (11:02)
[2017-10-05] MEDS ORDERED: MIDAZOLAM HCL 2 MG/2 ML INJ ONE (11:02)
[2017-10-05] MEDS ORDERED: FENTANYL CITR 100 MCG/2 ML ONE (11:02)
[2017-10-05] MEDS ORDERED: ONDANSETRON HCL 40 MG/20 ML VIAL ONE (11:03)
--- NOTE | 2017-10-05 11:31 | PREOPCON ---
Date of Consultation: 10/05/2017 Reason For Consultation: Abscess, left groin. History Of Present Illness: The patient is a 51-year-old female, who has had a cyst or a lump in her left groin for quite sometime that became infected over the last couple of days with minimal drainag e, pain, swelling, redness, tenderness and she was admitted for IV antibiotics and I was consulted. She is awake, alert. Denies any fever or chills. She had a DVT study, which was negative and she re cently had a significant back surgery with 6 rods being put in the entire spine in June and she has healed well from that. Review of Systems: Otherwise unremarkable. Past Medical History: Degenerative back disease secondary to scoliosis. Past Surgical History: Multiple back surgeries. Allergies: INCLUDE COMPAZINE, MORPHINE, DEMEROL. Social History: She does smoke. Denies drinking. Family History: Positive for coronary artery disease. Physical Examination: Vital Signs: Stable. She is afebrile. General: She is awake, alert, and oriented x3. Head and Neck: Cranial nerves 2 through 12 are grossly within normal limits. No neck masses. No JV D. Throat clear. Neck is supple. Chest: Clear. Heart: S1, S2. Abdomen: Soft. Extremities: Bilateral swelling, but it is more like a lymphedema. There is no pitting edema. Extr emity adequately perfused. Neuro: Nonfocal. Left groin, there is approximately a 4 x 6 cm area of erythema, edema, induration, and minimal fluctuance with some draining fluid consistent with pus, redness, and warmth is present. Laboratory Data: Her white count is 5.6. INR is 1.03. Chemistry reviewed, essentially unremarkable . Assessment: Left groin abscess and cellulitis. Recommendations: We will take the patient to the OR for incision, drainage, and debridement. The pa tient understands the risks, benefits, and alternatives and agrees to procedure. The patient is curr ently on broad-spectrum antibiotics. We will adjust the antibiotics based on the culture reports. LYNNETTE/CLIFTON Voice ID: [id number] Report ID: [id number]
--- NOTE | 2017-10-05 11:34 | P.OP ---
Preoperative diagnosis: Abscess Left Groin Postoperative diagnosis: same Primary procedure: I and D and Debridement Left groin abscess Anesthesia: Gen Estimated blood loss: min Specimen: pus Findings: as above Complications: None Transferred to: Recovery Room Condition: Good
[2017-10-05] MEDS ORDERED: POTASSIUM 25 MEQ EFFERV TAB PO ONE (12:52)
[2017-10-05 14:11] VITALS: O2SAT 95
[2017-10-05 16:37] VITALS: BP 105/65; TEMP 97.5
[2017-10-05] MEDS ORDERED: GABAPENTIN 600 MG TABLET PO SCH (17:00)
[2017-10-05] MEDS ORDERED: AMITRIPTYLINE 25 MG TAB PO SCH (21:00)
[2017-10-05] MEDS ORDERED: AMITRIPTYLINE 25 MG TABLET PO SCH (21:00)
--- NOTE | 2017-10-05 22:14 | OP ---
Date of Procedure: 10/05/2017 Surgeon: Nicolas Linn MD Preoperative Diagnosis: Abscess left groin. Postoperative Diagnosis: Abscess left groin. Procedure: Incision and drainage and debridement of left groin abscess. Estimated Blood Loss: Minimal. Specimen: None. Findings: As above. Anesthesia: General. Complications: None. Disposition: The patient tolerated the procedure in stable condition and taken to the Recovery in go od general condition. Operative Note: The patient was brought to the OR and placed in supine position and general anesthes ia was begun. The patient placed in a frog-leg position. Prepped and draped in the usual sterile fas hion. Marcaine 0.5% was infiltrated locally. Then, a 4 cm incision made in the inguinal crease in t he left side. Subcutaneous tissue were divided. There were multiple punctate openings. They were al l connected. Cultures were done. Minimal pus was present. Loculations were broken up. Necrotic ti ssue debrided. The wound was irrigated. Bleeding was controlled cautery and a wet-to-dry normal terra ine dressing change applied. The patient tolerated the procedure in stable condition and taken to the Recovery in good general condition. /MODL Voice ID: [id number] Report ID: [id number]
== END 2017-10-05 19:28 | disposition home or self-care (01) ==
LOC: 4TH 16:22
PROVIDERS: ADMIT Internal Medicine; ATTEND Internal Medicine
PROC: 0H9AXZZ Drainage of Inguinal Skin, External Approach (ICD-10-PCS; principal; 2017-10-05 10:15)
DX: L02.214 Cutaneous abscess of groin (principal); F17.210 Nicotine dependence, cigarettes, uncomplicated
CPT/HCPCS: 36415; 71045; 80048; 80076; 81003; 82306; 82607; 83735; 84100; 84443; 85025; 85610; 85730; 87040; 87070; 87086; 87088; 87205; 93005; 93970; 94640; G0378; J1940; J2250; J2405; J3010; J3370

== ENCOUNTER 2018-02-16 11:56 | Emergency (ER) | payer OTHER ==
--- OUTSIDE RECORDS SUMMARY | 2018-02-16 11:59 | XMS REPORT | Clinical Summary ---
:1965 Author Organization [facility] Address [address] [place] [address] Care Team Providers Name Role Phone Asked, [...] mouth daily. D3) 2,000 unit capsule capsule traMADol (ULTRAM) 50 Take 50 mg by [...] tablet times a day for 30 days. oxyCODone Take 1 tablet 180 tablet 0 11/02/19 (OxyCONTIN) 10 mg (10 mg total) by 8 18 tablet,oral mouth every 12 only,ext.rel.12 hr (twelve) hours ER tablet for 90 days. Max Daily Amount: 20 mg oxyCODone-acetaminop Take 1 tablet by 90 tablet 0 11/02/19 hen (PERCOCET) mouth every 4 8 18 10-325 mg per tablet (four) hours as needed for moderate pain for up to 90 days. 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 Spinal instability 07/10/2017 Encounters Date Type Specialty Care Team Description 01/19/2018 Orders Only Orthopedic Surgery Barraza, Dm, Scoliosis, MA unspecified scoliosis type, unspecified spinal region (Primary Dx) 07/20/2017 Hospital Encounter Rehabilitation Vani Montes S/P spinal fusion (Primary Dx); Sandi Morrissey MD Gait abnormality; 08/03/2017 Chronic bilateral low back pain without sciatica; Spinal instability, unspecified spinal region 07/18/2017 Procedure Pass General Surgery 07/14/2017 Anesthesia Event General Surgery Merissa Mcpherson MD 07/14/2017 Procedure Pass General Surgery 07/14/2017 Surgery General Surgery Benny, REVISION POSTERIOR Mal Rodriguez SPINAL INSTRUMENTATION / FUSION T3-S1 PELVIS 07/11/2017 Procedure Pass General Surgery 07/10/2017 Hospital Encounter Orthopedic Surgery Benny Sagittal plane - Mal Rodriguez imbalance 07/20/2017 06/22/2017 Pre-Admit Testing Pre-Admission Testing Benny, Preop examination Appointment Mal Rodriguez (Primary Dx) after 02/15/2017 Social History Tobacco Use Types Packs/Day Years [...] INFLUENZA VACCINE 11/22/2017 Implants Implanted Type Area Privacy Attorney Device Expiration Model / Serial Identifier Date / Lot System Spine Selnt For Dural Selng Exact 5ml Duraseal - [id number] Cardiovascular N/A: INTEGRA 06/21/2018 [id number] / Implanted: Qty: 1 on 07/14/2017 by Mal Zapata Implants N/A LIFESCIENCE / NEURO [id number] Paste Dbm Easy-Dispensing Wdmth Syr 10ml [address] - [id number] - [id number] Human Tissue N/A: MEDTRONIC SPINAL 03/09/2019 [id number] / Implanted: Qty: 1 on 07/14/2017 by Mal Zapata Implants N/A GRAFT [id number] / TECHNOLOGIES [id number] Paste Dbm Easy-Dispensing Wdmth Syr 10ml [address] - [id number] - [id number] Human Tissue N/A: MEDTRONIC SPINAL 01/05/2019 [id number] / Implanted: Qty: 1 on 07/14/2017 by Mal Zapata Implants N/A GRAFT [id number] / TECHNOLOGIES [id number] Chip Canc Allograft Leader Frzdri 30cc 1.7-10mm - [id number] - [id number] Human Tissue N/A: MUSCULOSKELETAL 04/20/2020 [id number] / Implanted: Qty: 1 on 07/14/2017 by Mal Zapata Implants N/A TRANSPLANT [id number] / FOUNDATION [id number] Chip Canc Allograft Leader Frzdri 30cc 1.7-10mm - [id number] - [id number] Human Tissue N/A: MUSCULOSKELETAL 12/08/2019 [id number] / Implanted: Qty: 1 on 07/14/2017 by Mal Zapata Implants N/A TRANSPLANT [id number] / FOUNDATION [id number] Paste Dbm Easy-Dispensing Wdmth Syr 10ml [address] - [id number] - [id number] Human Tissue N/A: MEDTRONIC SPINAL 03/09/2019 [id number] / Implanted: Qty: 1 on 07/14/2017 by Mal Zapata Implants N/A GRAFT [id number] / TECHNOLOGIES [id number] Paste Dbm Easy-Dispensing Wdmth Syr 10ml [address] - [id number] - [id number] Human Tissue N/A: MEDTRONIC SPINAL 01/05/2019 [id number] / Implanted: Qty: 1 on 07/14/2017 by Mal Zapata Implants N/A GRAFT [id number] / TECHNOLOGIES [id number] Screw [id number] 5.5 Mas 6.5x40 Cc - [id number] [id number] IMPLANT N/A: MEDTRONIC [id number] / Implanted: Qty: 3 on 07/14/2017 by Mal Zapata DEVICES N/A SOFAMOR DANEK / Screw [id number] 5.5 Mas 6.5x45 Cc - [id number] [id number] IMPLANT N/A: MEDTRONIC [id number] / Implanted: Qty: 4 on 07/14/2017 by Mal Zapata DEVICES N/A SOFAMOR DANEK / Sin [id number] [id number] - [id number] IPM IMPLANT N/A: MEDTRONIC [id number] / Implanted: Qty: 2 on 07/14/2017 by Mal Zapata DEVICES N/A SOFAMOR DANEK / Screw [id number] 5.5 Mas 5.5x40 Cc - [id number] IPM IMPLANT N/A: MEDTRONIC [id number] / Implanted: Qty: 4 on 07/14/2017 by Mal Zapata DEVICES N/A SOFAMOR DANEK / Screw [id number] 5.5 Mas 6.5x55 Cc - [id number] IPM IMPLANT N/A: MEDTRONIC [id number] / Implanted: Qty: 1 on 07/14/2017 by Mal Zapata DEVICES N/A SOFAMOR DANEK / Screw [id number] 5.5 Mas 8.5x50 Cc - [id number] IPM IMPLANT N/A: MEDTRONIC [id number] / Implanted: Qty: 1 on 07/14/2017 by Mal Zapata DEVICES N/A SOFAMOR DANEK / Screw [id number] 5.5 Mas 8.5x55 Cc - [id number] IPM IMPLANT N/A: MEDTRONIC [id number] / Implanted: Qty: 1 on 07/14/2017 by Mal Zapata DEVICES N/A SOFAMOR DANEK / Screw [id number] Bs Cnmas 7.5x90 T/C - [id number] IPM IMPLANT N/A: MEDTRONIC [id number] / Implanted: Qty: 2 on 07/14/2017 by Mal Zapata DEVICES N/A SOFAMOR DANEK / Connector [id number] 5/6-6.0 Clsd Lat 25 - [id number] IPM IMPLANT N/A: MEDTRONIC [id number] / Implanted: Qty: 3 on 07/14/2017 by Mal Zapata DEVICES N/A SOFAMOR DANEK / Screw [id number] 5.5 Mas 5.5x25 Cc - [id number] IPM IMPLANT N/A: MEDTRONIC [id number] / Implanted: Qty: 2 on 07/14/2017 by Mal Zapata DEVICES N/A SOFAMOR DANEK / Screw [id number] 5.5 Mas 6.5x35 Cc - [id number] IPM IMPLANT N/A: MEDTRONIC [id number] / Implanted: Qty: 1 on 07/14/2017 by Mal Zapata DEVICES N/A SOFAMOR DANEK / Screw [id number] 5.5 Mas 9.5x50 Cc - [id number] IPM IMPLANT N/A: MEDTRONIC [id number] / Implanted: Qty: 1 on 07/14/2017 by Mal Zapata DEVICES N/A SOFAMOR DANEK / Screw [id number] 5.5 Mas 10.5x50 Cc - [id number] IPM IMPLANT N/A: MEDTRONIC [id number] / Implanted: Qty: 1 on 07/14/2017 by Mal Zapata DEVICES N/A SOFAMOR DANEK / Sin [id number] 5.[address] 600mm - [id number] IPM IMPLANT N/A: MEDTRONIC 04/04/2020 [id number] / Implanted: Qty: 1 on 07/14/2017 by Mal Zapata DEVICES N/A SOFAMOR DANEK / [id number] Screw Bone Canc Lag 4x30mm Ns - [id number] Orthopedic N/A: MEDTRONIC [id number] / Implanted: Qty: 21 on 07/14/2017 by Mal Zapata Trauma Implants N/A SOFAMOR DANEK / Screw Set Std Ti 1/4in 32mm - [id number] Spinal Implants N/A: MEDTRONIC SPINAL [id number] / Implanted: Qty: 7 on 07/14/2017 by Mal Zapata N/A AND BIOLOGICS / Connector Sin Spinal Ti 5.5x5.5mm Strl - [id number] Spinal Implants N/A: MEDTRONIC SPINAL [id number] / Implanted: Qty: 2 on 07/14/2017 by Mal Zapata N/A AND BIOLOGICS / Kit Hemostatic Matrix W/Thrombin 8ml Surgiflo - [id number] Surgical N/A: [facility] 09/21[facility]2018 2994 / Implanted: Qty: 3 on 07/14/2017 by Mal Zapata Implants; N/A / Expanders; [id number] Extenders; Surgical Wires Matrix Hmstc Floseal 10ml W/ Humn F2 - [id number] Surgical N/A: MICHAEL [id number] / Implanted: Qty: 1 on 07/14/2017 by Mal Zapata Implants; N/A HEALTHCARE CHIP / Expanders; [id number] Extenders; Surgical Wires Kit Hemostatic Matrix W/Thrombin 8ml Surgiflo - [id number] Surgical N/A: [facility] 08/21/2018 2994 / Implanted: Qty: 1 on 07/14/2017 by Mal Zapata Implants; N/A / Expanders; [id number] Extenders; Surgical Wires Drain Wound Hbls Round Radopaq Trocar Madeline White 0.18in 15fr - [id number] Surgical N/A: [facility] / Implanted: Qty: 1 on 07/14/2017 by Mal Zapata Implants; N/A REED & / Expanders; REED Extenders; Surgical Wires Drain Wound Hbls Round Radopaq Trocar Madeline White 0.18in 15fr - [id number] Surgical N/A: [facility] / Implanted: Qty: 1 on 07/14/2017 by Mal Zapata Implants; N/A REED & / Expanders; REED Extenders; Surgical Wires Kit Hemostatic Matrix W/Thrombin 8ml Surgiflo - [id number] Surgical N/A: [facility] 10/21/2018 2994 / Implanted: Qty: 2 on 07/14/2017 by Mal Zapata Implants; N/A / Expanders; [id number] Extenders; Surgical Wires Kit Hemostatic Matrix W/Thrombin 8ml Surgiflo - [id number] Surgical N/A: [facility] 09/21/2018 2994 / Implanted: Qty: 1 on 07/14/2017 by Mal Zapata Implants; N/A / Expanders; [id number] Extenders; Surgical Wires Kit Hemostatic Matrix W/Thrombin 8ml Surgiflo - [id number] Surgical N/A: [facility] 09/21/2018 2994 / Implanted: Qty: 1 on 07/14/2017 by Mal Zapata Implants; N/A / Expanders; [id number] Extenders; Surgical Wires Kit Hemostatic Matrix W/Thrombin 8ml Surgiflo - [id number] Surgical N/A: [facility] 10/21/2018 2994 / Implanted: Qty: 2 on 07/14/2017 by Mal Zapata Implants; N/A / Expanders; [id number] Extenders; Surgical Wires Kit Hemostatic Matrix W/Thrombin 8ml Surgiflo - [id number] Surgical N/A: [facility] 09/21/2018 2994 / Implanted: Qty: 1 on 07/14/2017 by Mal Zapata Implants; N/A / Expanders; [id number] Extenders; Surgical Wires Kit Hemostatic Matrix W/Thrombin 8ml Surgiflo - [id number] Surgical N/A: [facility] 09/21/2018 2994 / Implanted: Qty: 1 on 07/14/2017 by Mal Zapata Implants; N/A / Expanders; [id number] Extenders; Surgical Wires Kit Hemostatic Matrix W/Thrombin 8ml Surgiflo - [id number] Surgical N/A: [facility] 09/21/2018 2994 / Implanted: Qty: 1 on 07/14/2017 by Mal Zapata Implants; N/A / Expanders; [id number] Extenders; Surgical Wires Kit Hemostatic Matrix W/Thrombin 8ml Surgiflo - [id number] Surgical N/A: [facility] 09/21/2018 2994 / Implanted: Qty: 1 on 07/14/2017 by Mal Zapata Implants; N/A / Expanders; [id number] Extenders; Surgical Wires Explanted Type Area Privacy Attorney Device Expiration Model / Identifier Date Serial / Lot Screw [id number] 5.5 Mas 5.5x45 Cc - [id number] N/A: MEDTRONIC [id number] / Implanted: 07/14/2017 (Quantity not on file) IMPLANT N/A SOFAMOR DANEK / Explanted: Qty: 1 on 07/14/2017 DEVICES Procedures Procedure Name Priority Date/Time Associated Comments Diagnosis ZZESTIMATED GFR Routine 07/31/2017 5:29 Results for this AM CDT procedure are in the results section. BASIC METABOLIC PANEL Routine 07/31/2017 5:29 Results for this AM CDT procedure are in the results section. HC COMPLETE BLD COUNT Routine 07/31/2017 5:29 Results for this W/AUTO DIFF AM CDT procedure are in the results section. ZZESTIMATED GFR Routine 07/26/2017 5:54 Results for this AM CDT procedure are in the results section. BASIC METABOLIC PANEL Routine 07/26/2017 5:54 Results for this AM CDT procedure are in the results section. ZZESTIMATED GFR Routine 07/23/2017 5:11 Results for this AM CDT procedure are in the results section. BASIC METABOLIC PANEL Routine 07/23/2017 5:11 Results for this AM CDT procedure are in the results section. HC COMPLETE BLD COUNT Routine 07/23/2017 5:11 Results for this W/AUTO DIFF AM CDT procedure are in the results section. MANUAL DIFFERENTIAL Routine 07/21/2017 5:33 Results for this AM CDT procedure are in the results section. ZZESTIMATED GFR Routine 07/21/2017 5:33 Results for this AM CDT procedure are in the results section. CBC WITH PLATELET AND Routine 07/21/2017 5:33 Results for this DIFFERENTIAL AM CDT procedure are in the results section. BASIC METABOLIC PANEL Routine 07/21/2017 5:33 Results for this AM CDT procedure are in the results section. HC COMPLETE BLD COUNT Routine 07/20/2017 11:45 Results for this W/AUTO DIFF AM CDT procedure are in the results section. CBC WITH PLATELET AND Routine 07/20/2017 5:30 Results for this DIFFERENTIAL AM CDT procedure are in the results section. ZZESTIMATED GFR Routine 07/20/2017 4:00 Results for this AM CDT procedure are in the results section. MAGNESIUM LEVEL Routine 07/20/2017 4:00 Results for this AM CDT procedure are in the results section. BASIC METABOLIC PANEL Routine 07/20/2017 4:00 Results for this AM CDT procedure are in the results section. TROPONIN Routine 07/19/2017 2:00 Results for this AM CDT procedure are in the results section. ZZESTIMATED GFR Routine 07/19/2017 2:00 Results for this AM CDT procedure are in the results section. MAGNESIUM LEVEL Routine 07/19/2017 2:00 Results for this AM CDT procedure are in the results section. BASIC METABOLIC PANEL Routine 07/19/2017 2:00 Results for this AM CDT procedure are in the results section. HC COMPLETE BLD COUNT Routine 07/19/2017 2:00 Results for this W/AUTO DIFF AM CDT procedure are in the results section. B NATRIURETIC PEPTIDE Routine 07/18/2017 5:00 Results for this AM CDT procedure are in the results section. HC COMPLETE BLD COUNT Routine 07/18/2017 5:00 Results for this W/AUTO DIFF AM CDT procedure are in the results section. ZZESTIMATED GFR Routine 07/18/2017 4:00 Results for this AM CDT procedure are in the results section. PHOSPHORUS LEVEL Routine 07/18/2017 4:00 Results for this AM CDT procedure are in the results section. MAGNESIUM LEVEL Routine 07/18/2017 4:00 Results for this AM CDT procedure are in the results section. BASIC METABOLIC PANEL Routine 07/18/2017 4:00 Results for this AM CDT procedure are in the results section. XR ABDOMEN 1 VW Routine 07/17/2017 4:27 Results for this PORTABLE PM CDT procedure are in the results section. SMEAR REVIEW Routine 07/17/2017 11:00 Results for this AM CDT procedure are in the results section. HC COMPLETE BLD COUNT Routine 07/17/2017 11:00 Results for this W/AUTO DIFF AM CDT procedure are in the results section. ZZESTIMATED GFR Routine 07/17/2017 9:44 Results for this AM CDT procedure are in the results section. PHOSPHORUS LEVEL Routine 07/17/2017 9:44 Results for this AM CDT procedure are in the results section. MAGNESIUM LEVEL Routine 07/17/2017 9:44 Results for this AM CDT procedure are in the results section. BASIC METABOLIC PANEL Routine 07/17/2017 9:44 Results for this AM CDT procedure are in the results section. POC GLUCOSE Routine 07/16/2017 7:25 Results for this AM CDT procedure are in the results section. POC GLUCOSE Routine 07/16/2017 5:13 Results for this AM CDT procedure are in the results section. PHOSPHORUS LEVEL Routine 07/16/2017 2:19 Results for this AM CDT procedure are in the results section. IONIZED CALCIUM Routine 07/16/2017 2:19 Results for this AM CDT procedure are in the results section. ZZESTIMATED GFR Routine 07/16/2017 2:19 Results for this AM CDT procedure are in the results section. MAGNESIUM LEVEL Routine 07/16/2017 2:19 Results for this AM CDT procedure are in the results section. BASIC METABOLIC PANEL Routine 07/16/2017 2:19 Results for this AM CDT procedure are in the results section. HC COMPLETE BLD COUNT Routine 07/16/2017 2:19 Results for this W/AUTO DIFF AM CDT procedure are in the results section. POC GLUCOSE Routine 07/15/2017 11:40 Results for this PM CDT procedure are in the results section. MAGNESIUM LEVEL Routine 07/15/2017 5:35 Results for this PM CDT procedure are in the results section. ZZESTIMATED GFR Routine 07/15/2017 5:35 Results for this PM CDT procedure are in the results section. TROPONIN Routine 07/15/2017 5:35 Results for this PM CDT procedure are in the results section. PHOSPHORUS LEVEL Routine 07/15/2017 5:35 Results for this PM CDT procedure are in the results section. BASIC METABOLIC PANEL Routine 07/15/2017 5:35 Results for this PM CDT procedure are in the results section. ECG 12-LEAD Routine 07/15/2017 5:19 Results for this PM CDT procedure are in the results section. PROTHROMBIN TIME WITH Routine 07/15/2017 5:00 Results for this INR PM CDT procedure are in the results section. HC COMPLETE BLD COUNT Routine 07/15/2017 5:00 Results for this W/AUTO DIFF PM CDT procedure are in the results section. POC GLUCOSE Routine 07/15/2017 4:36 Results for this PM CDT procedure are in the results section. XR CHEST 1 VW PORTABLE STAT 07/15/2017 2:31 Results for this PM CDT procedure are in the results section. ARTERIAL BLOOD GAS STAT 07/15/2017 12:51 Results for this PM CDT procedure are in the results section. POC GLUCOSE Routine 07/15/2017 12:08 Results for this PM CDT procedure are in the results section. POC GLUCOSE Routine 07/15/2017 8:14 Results for this AM CDT procedure are in the results section. POC GLUCOSE Routine 07/15/2017 5:31 Results for this AM CDT procedure are in the results section. ZZESTIMATED GFR Routine 07/15/2017 1:39 Results for this AM CDT procedure are in the results section. MAGNESIUM LEVEL Routine 07/15/2017 1:39 Results for this AM CDT procedure are in the results section. BASIC METABOLIC PANEL Routine 07/15/2017 1:39 Results for this AM CDT procedure are in the results section. HC COMPLETE BLD COUNT Routine 07/15/2017 1:39 Results for this W/AUTO DIFF AM CDT procedure are in the results section. XR CHEST 1 VW PORTABLE Routine 07/14/2017 8:54 Results for this PM CDT procedure are in the results section. URINALYSIS SCREEN AND Routine 07/14/2017 8:20 Results for this MICROSCOPY, WITH REFLEX PM CDT procedure are in TO CULTURE the results section. GRAM STAIN Routine 07/14/2017 8:20 Results for this PM CDT procedure are in the results section. URINE CULTURE Routine 07/14/2017 8:20 Results for this PM CDT procedure are in the results section. ZZESTIMATED GFR Routine 07/14/2017 7:58 Results for this PM CDT procedure are in the results section. MAGNESIUM LEVEL Routine 07/14/2017 7:58 Results for this PM CDT procedure are in the results section. PHOSPHORUS LEVEL Routine 07/14/2017 7:58 Results for this PM CDT procedure are in the results section. BASIC METABOLIC PANEL Routine 07/14/2017 7:58 Results for this PM CDT procedure are in the results section. POC GLUCOSE Routine 07/14/2017 7:43 Results for this PM CDT procedure are in the results section. PARTIAL THROMBOPLASTIN Routine 07/14/2017 7:42 Results for this TIME (PTT) PM CDT procedure are in the results section. IONIZED CALCIUM, Routine 07/14/2017 7:42 Results for this ARTERIAL PM CDT procedure are in the results section. HC COMPLETE BLD COUNT Routine 07/14/2017 7:42 Results for this W/AUTO DIFF PM CDT procedure are in the results section. PROTHROMBIN TIME WITH Routine 07/14/2017 7:42 Results for this INR PM CDT procedure are in the results section. ARTERIAL BLOOD GAS Routine 07/14/2017 7:42 Results for this PM CDT procedure are in the results section. INTRAOPERATIVE Routine 07/14/2017 4:19 Results for this MONITORING PM CDT procedure are in the results section. TRANSFUSE PLATELETS Routine 07/14/2017 4:13 PM CDT IONIZED CALCIUM, STAT 07/14/2017 3:44 Results for this ARTERIAL PM CDT procedure are in the results section. GLUCOSE LEVEL, SYRINGE STAT 07/14/2017 3:44 Results for this PM CDT procedure are in the results section. HEMOGLOBIN, SYRINGE STAT 07/14/2017 3:44 Results for this PM CDT procedure are in the results section. POTASSIUM, SYRINGE STAT 07/14/2017 3:44 Results for this PM CDT procedure are in the results section. ARTERIAL BLOOD GAS, STAT 07/14/2017 3:44 Results for this CORRECTED PM CDT procedure are in the results section. SODIUM LEVEL, SYRINGE STAT 07/14/2017 3:44 Results for this PM CDT procedure are in the results section. TRANSFUSE FRESH FROZEN Routine 07/14/2017 3:32 PLASMA PM CDT XR THORACOLUMBAR SPINE Routine 07/14/2017 3:30 Results for this 2 VW PM CDT procedure are in the results section. TRANSFUSE RED BLOOD Routine 07/14/2017 3:12 CELLS PM CDT IONIZED CALCIUM, STAT 07/14/2017 2:34 Results for this ARTERIAL PM CDT procedure are in the results section. GLUCOSE LEVEL, SYRINGE STAT 07/14/2017 2:34 Results for this PM CDT procedure are in the results section. HEMOGLOBIN, SYRINGE STAT 07/14/2017 2:34 Results for this PM CDT procedure are in the results section. SODIUM LEVEL, SYRINGE STAT 07/14/2017 2:34 Results for this PM CDT procedure are in the results section. POTASSIUM, SYRINGE STAT 07/14/2017 2:34 Results for this PM CDT procedure are in the results section. ARTERIAL BLOOD GAS, STAT 07/14/2017 2:34 Results for this CORRECTED PM CDT procedure are in the results section. OR FL > 1 HOUR Routine 07/14/2017 2:20 Results for this PM CDT procedure are in the results section. TRANSFUSE RED BLOOD Routine 07/14/2017 2:03 CELLS PM CDT TRANSFUSE FRESH FROZEN Routine 07/14/2017 1:55 PLASMA PM CDT GLUCOSE LEVEL, SYRINGE STAT 07/14/2017 1:18 Results for this PM CDT procedure are in the results section. HEMOGLOBIN, SYRINGE STAT 07/14/2017 1:18 Results for this PM CDT procedure are in the results section. IONIZED CALCIUM, STAT 07/14/2017 1:18 Results for this ARTERIAL PM CDT procedure are in the results section. POTASSIUM, SYRINGE STAT 07/14/2017 1:18 Results for this PM CDT procedure are in the results section. SODIUM LEVEL, SYRINGE STAT 07/14/2017 1:18 Results for this PM CDT procedure are in the results section. ARTERIAL BLOOD GAS, STAT 07/14/2017 1:18 Results for this CORRECTED PM CDT procedure are in the results section. ARTERIAL LINE Routine 07/14/2017 9:27 AM CDT Procedure Note - Nimo Dillard, IRONER MACHINE - 07/14/2017 9:27 AM CDT Arterial line [...] line Performed by: YOVANY GODINEZ Authorized by: YOVANY GODINEZ Patient Location: [place] [...] the procedure well with no immediate complications GLUCOSE LEVEL, STAT 07/14/2017 8:39 AM Results for this SYRINGE CDT procedure are in the results section. HEMOGLOBIN, SYRINGE STAT 07/14/2017 8:39 AM Results for this CDT procedure are in the results section. IONIZED CALCIUM, STAT 07/14/2017 8:39 AM Results for this ARTERIAL CDT procedure are in the results section. SODIUM LEVEL, STAT 07/14/2017 8:39 AM Results for this SYRINGE CDT procedure are in the results section. POTASSIUM, SYRINGE STAT 07/14/2017 8:39 AM Results for this CDT procedure are in the results section. ARTERIAL BLOOD GAS, STAT 07/14/2017 8:39 AM Results for this CORRECTED CDT procedure are in the results section. FUSION, SPINE, 07/14/2017 7:30 AM Sagittal plane THORACIC, USING CDT imbalance POSTERIOR TECHNIQUE Case Notes PRONE POSITION, EST 6 HRS, CELL SAVER, SSEP W/ MOTORS PRO AXIS TABLE, DR JON CO-SURGEON Special Needs PRONE POSITION, EST 6 HRS, CELL SAVER, SSEP W/ MOTORS PRO AXIS TABLE, DR JON CO-SURGEON SURGICAL PATHOLOGY Routine 07/14/2017 7:17 AM Results for this REQUEST CDT procedure are in the results section. ZZESTIMATED GFR Routine 07/14/2017 3:30 AM Results for this CDT procedure are in the results section. PHOSPHORUS LEVEL Routine 07/14/2017 3:30 AM Results for this CDT procedure are in the results section. MAGNESIUM LEVEL Routine 07/14/2017 3:30 AM Results for this CDT procedure are in the results section. B NATRIURETIC PEPTIDE Routine 07/14/2017 3:30 AM Results for this CDT procedure are in the results section. BASIC METABOLIC PANEL Routine 07/14/2017 3:30 AM Results for this CDT procedure are in the results section. HC COMPLETE BLD COUNT Routine 07/14/2017 3:30 AM Results for this W/AUTO DIFF CDT procedure are in the results section. PREPARE PLATELETS Timed 07/13/2017 1:45 PM Results for this CDT procedure are in the results section. PREPARE FRESH FROZEN Timed 07/13/2017 1:45 PM Results for this PLASMA CDT procedure are in the results section. PREPARE RBC Timed 07/13/2017 1:45 PM Results for this CDT procedure are in the results section. TYPE AND SCREEN Timed 07/13/2017 1:45 PM Results for this CDT procedure are in the results section. ZZESTIMATED GFR Routine 07/13/2017 4:00 AM Results for this CDT procedure are in the results section. BASIC METABOLIC PANEL Routine 07/13/2017 4:00 AM Results for this CDT procedure are in the results section. HC COMPLETE BLD COUNT Routine 07/13/2017 4:00 AM Results for this W/AUTO DIFF CDT procedure are in the results section. CBC HEMOGRAM Routine 07/11/2017 5:40 AM Results for this CDT procedure are in the results section. TYPE AND SCREEN Routine 06/22/2017 5:45 PM Results for this [employer] SALES [employer]ANT procedure are in the results section. HEMOGLOBIN A1C Routine 06/22/2017 5:35 PM Preop examination Results for this [employer] SALES [employer]SULTANT procedure are in the results section. after 02/15/2017 Results Estimated GFR (07/31/2017 5:29 AM)Only the most recent of14 resultswithin the time period is included. GFR Non Af Amer >90 mL/min/1.73 m2 [facility] DEPARTMENT OF PATHOLOGY AND GENOMIC MEDICINE GFR Af Amer >90 mL/min/1.73 m2 [facility] DEPARTMENT OF Comment: PATHOLOGY AND GENOMIC Chronic kidney disease: <60 mL/min/1.73m2 MEDICINE Kidney failure: <15 mL/min/1.73m2 The estimated GFR is calculated from the IDMS-traceable Modification of Diet in Renal Disease Equation. The accuracy of the calculation is poor when the creatinine is normal. Calculated values >90 mL/min/1.73m2 are not reported. This equation has not been validated in children (<18 years), women, the elderly (>70 years), or ethnic groups other than Caucasians and Americans. Specimen Plasma specimen Performing Organization Address City/State/Zipcode Phone Number [facility] DEPARTMENT OF PATHOLOGY AND [address] [place] [address] [facility] CBC with platelet and differential (07/31/2017 5:29 AM)Only the most recent of14 resultswithin the time period is included. WBC 7.49 4.50 - 11.00 k/uL [facility] DEPARTMENT OF PATHOLOGY AND GENOMIC MEDICINE RBC 3.06 (L) 4.20 - 5.50 m/uL [facility] DEPARTMENT OF PATHOLOGY AND GENOMIC MEDICINE HGB 9.1 (L) 12.0 - 16.0 g/dL [facility] DEPARTMENT OF PATHOLOGY AND GENOMIC MEDICINE HCT 28.8 (L) 37.0 - 47.0 % [facility] DEPARTMENT OF PATHOLOGY AND GENOMIC MEDICINE MCV 94.1 82.0 - 100.0 fL [facility] DEPARTMENT OF PATHOLOGY AND GENOMIC MEDICINE MCH 29.7 27.0 - 34.0 pg [facility] DEPARTMENT OF PATHOLOGY AND GENOMIC MEDICINE MCHC 31.6 31.0 - 37.0 g/dL [facility] DEPARTMENT OF PATHOLOGY AND GENOMIC MEDICINE RDW - SD 51.2 37.0 - 55.0 fL [facility] DEPARTMENT OF PATHOLOGY AND GENOMIC MEDICINE MPV 9.2 8.8 - 13.2 fL [facility] DEPARTMENT OF PATHOLOGY AND GENOMIC MEDICINE Platelet count 294 150 - 400 k/uL [facility] DEPARTMENT OF PATHOLOGY AND GENOMIC MEDICINE Nucleated RBC 0.40 /100 WBC [facility] DEPARTMENT OF PATHOLOGY AND GENOMIC MEDICINE Neutrophils 52.5 39.0 - 69.0 % [facility] DEPARTMENT OF PATHOLOGY AND GENOMIC MEDICINE Lymphocytes 35.6 25.0 - 45.0 % [facility] DEPARTMENT OF PATHOLOGY AND GENOMIC MEDICINE Monocytes 6.7 0.0 - 10.0 % [facility] DEPARTMENT OF PATHOLOGY AND GENOMIC MEDICINE Eosinophils 4.5 0.0 - 5.0 % [facility] DEPARTMENT OF PATHOLOGY AND GENOMIC MEDICINE Basophils 0.3 0.0 - 1.0 % [facility] DEPARTMENT OF PATHOLOGY AND GENOMIC MEDICINE Immature granulocytes 0.4Comment: 0.0 - 1.0 % [facility] DEPARTMENT OF "Immature PATHOLOGY AND GENOMIC granulocytes" MEDICINE (promyelocytes, myelocytes, metamyelocytes) Specimen Blood Performing Organization Address City/State/Zipcode Phone Number [facility] DEPARTMENT OF PATHOLOGY AND [address] [place] [phone] [facility] MEDICINE Basic metabolic panel (07/31/2017 5:29 AM)Only the most recent of14 resultswithin the time period is included. Sodium 137 135 - 148 mEq/L [facility] DEPARTMENT OF PATHOLOGY AND GENOMIC MEDICINE Potassium 4.0 3.5 - 5.0 mEq/L [facility] DEPARTMENT OF PATHOLOGY AND GENOMIC MEDICINE Chloride 98 98 - 112 mEq/L [facility] DEPARTMENT OF PATHOLOGY AND GENOMIC MEDICINE CO2 31 24 - 31 mEq/L [facility] DEPARTMENT OF PATHOLOGY AND GENOMIC MEDICINE Anion gap 8 7 - 15 mEq/L [facility] DEPARTMENT OF PATHOLOGY Comment: AND GENOMIC MEDICINE Starting from July , anion gap calculation no longer incorporates potassium. Please note the change. BUN 11 6 - 20 mg/dL [facility] DEPARTMENT OF PATHOLOGY AND GENOMIC MEDICINE Creatinine 0.5 0.5 - 0.9 mg/dL [facility] DEPARTMENT OF PATHOLOGY AND GENOMIC MEDICINE Glucose 106 (H) 65 - 99 mg/dL [facility] DEPARTMENT OF PATHOLOGY AND GENOMIC MEDICINE Calcium 8.8 8.3 - 10.2 mg/dL [facility] DEPARTMENT OF PATHOLOGY AND GENOMIC MEDICINE Specimen Plasma specimen Performing Organization Address City/[facility] Cent[facility] Phone Number [facility] DEPARTMENT OF PATHOLOGY AND [address] [place] [address] GENOMIC MEDICINE Manual differential (07/21/2017 5:33 AM) Manual differential PERFORMED [facility] DEPARTMENT OF PATHOLOGY AND GENOMIC MEDICINE Neutrophils 56.0 39.0 - 69.0 % [facility] DEPARTMENT OF PATHOLOGY AND GENOMIC MEDICINE Lymphocytes 30.0 25.0 - 45.0 % [facility] DEPARTMENT OF PATHOLOGY AND GENOMIC MEDICINE Monocytes 7.0 0.0 - 10.0 % [facility] DEPARTMENT OF PATHOLOGY AND GENOMIC MEDICINE Eosinophils 7.0 (H) 0.0 - 5.0 % [facility] DEPARTMENT OF PATHOLOGY AND GENOMIC MEDICINE Basophils 0.0 0.0 - 1.0 % [facility] DEPARTMENT OF PATHOLOGY AND GENOMIC MEDICINE Metamyelocytes 0 % [facility] DEPARTMENT OF PATHOLOGY AND GENOMIC MEDICINE Promyelocytes 0 % [facility] DEPARTMENT OF PATHOLOGY AND GENOMIC MEDICINE Platelet slide review Benedicto adequate [facility] DEPARTMENT OF PATHOLOGY AND GENOMIC MEDICINE Anisocytosis Moderate [facility] DEPARTMENT OF PATHOLOGY AND GENOMIC MEDICINE Polychromasia Moderate [facility] DEPARTMENT OF PATHOLOGY AND GENOMIC MEDICINE Ovalocytes Moderate [facility] DEPARTMENT OF PATHOLOGY AND GENOMIC MEDICINE Performing Organization Address [facility] Phone Number [facility] DEPARTMENT OF PATHOLOGY AND [address] [place] [address] GENOMIC MEDICINE Magnesium level (07/20/2017 4:00 AM)Only the most recent of9 resultswithin the time period is included. Magnesium 2.0 1.6 - 2.6 mg/dL [facility] DEPARTMENT OF PATHOLOGY AND GENOMIC MEDICINE Specimen Plasma specimen Performing Organization Address City/[facility] Centercode Phone Number [facility] DEPARTMENT OF PATHOLOGY AND [address] [place] [address] Troponin (07/19/2017 2:00 AM)Only the most recent of2 resultswithin the time period is included. Troponin <0.30 0.00 - 0.30 ng/mL [facility] DEPARTMENT OF PATHOLOGY Comment: AND GENOMIC MEDICINE 0.30 - 1.49 ng/mlMay indicate increased risk of acute coronary syndrome. >=1.5 ng/mlConsistent with acute myocardial infarction. The diagnostic value of a single normal or non-diagnostic result is questionable.Serial samples at 2-6 hour intervals are required to rule out acute myocardial injury. Specimen Plasma specimen Performing Organization Address City/[facility] Centercode Phone Number [facility] DEPARTMENT OF PATHOLOGY AND [address] [place] [address] [facility] B natriuretic peptide (07/18/2017 5:00 AM)Only the most recent of2 resultswithin the time period is included. BNP 18 0 - 100 pg/mL [facility] DEPARTMENT OF PATHOLOGY AND GENOMIC MEDICINE Specimen Blood Performing Organization Address [facility]conc Phone Number [facility] DEPARTMENT OF PATHOLOGY AND [address] [place], [place] [phone] [facility] Phosphorus level (07/18/2017 4:00 AM)Only the most recent of6 resultswithin the time period is included. Phosphorus 3.1 2.4 - 4.5 mg/dL [facility] DEPARTMENT OF PATHOLOGY AND GENOMIC [facility] Specimen Plasma specimen Performing Organization Address [facility] Phone Number [facility] DEPARTMENT OF PATHOLOGY AND [address] [place] [phone] [place] [address] XR Abdomen 1 Vw Portable (07/17/2017 4:27 PM) Narrative Performed At XR ABDOMEN 1 VW PORTABLE [facility] CLINICAL INDICATION:ABDOMINAL PAIN, kub COMPARISON:09/04/2015 IMPRESSION: Bowel gas pattern is nonspecific with gas in top normal loops of large and small bowel, correlate for ileus. Extensive changes of lumbosacral fusion are present with additional hardware in place from prior noting stable intervertebral prosthesis at the lumbosacral junction. A right sacral device is noted with associated leads. No radiopaque calculi are identified. [id number] Procedure Note Hm Interface, Radiology Results Incoming [...] associated leads. No radiopaque calculi are identified. [id number] Performing Organization Address [facility]/Zipcode Phone Number [facility] [address] [place] [phone] Smear review (07/17/2017 11:00 AM) Platelet slide review Benedicto adequate [facility] DEPARTMENT OF PATHOLOGY AND GENOMIC MEDICINE Performing Organization Address City/[facility] Centercode Phone Number [facility] DEPARTMENT OF PATHOLOGY AND [address] [place] [address] POC glucose (07/16/2017 7:25 AM)Only the most recent of8 resultswithin the time period is included. POC glucose 151 (H) 65 - 99 mg/dL [facility] DEPARTMENT OF PATHOLOGY AND Comment: GENOMIC MEDICINE [facility] Notified RN Meter ID: [id number] Commod[employer] Trader: Darnell Moreno Performing Organization Address City/[facility] Centercode Phone Number [facility] DEPARTMENT OF PATHOLOGY AND [address] [place] [address] Ionized calcium (07/16/2017 2:19 AM) pH 7.46 [facility] DEPARTMENT OF PATHOLOGY AND GENOMIC MEDICINE Ionized calcium 1.11 1.11 - 1.32 mmol/L [facility] DEPARTMENT OF PATHOLOGY AND GENOMIC MEDICINE Specimen Plasma specimen Performing Organization Address [facility] Phone Number [facility] DEPARTMENT OF PATHOLOGY AND [address] [place] [address] ECG 12 lead (07/15/2017 5:19 PM) Ventricular rate 124 [facility] MUSE Atrial rate 124 [facility] M[facility] AR interval 142 [facility] QRSD interval 72 [facility] MUSE QT interval 312 [facility]USE QTC interval 448 [facility] P axis 1 67 [facility] QRS axis 1 -5 [facility] T wave axis 40 [facility] EKG impression Sinus tachycardia-Inferior infarct , age [facility] MUSE undetermined-Abnormal ECG-No previous ECGs available- Performing Organization Address City/[facility] Centercode Phone Number [facility] MUSE [address] [place] [address] Prothrombin time with INR (07/15/2017 5:00 PM)Only the most recent of2 resultswithin the time period is included. Prothrombin time 14.0 12.0 - 15.0 sec [facility] DEPARTMENT OF PATHOLOGY AND GENOMIC MEDICINE INR 1.1 [facility] DEPARTMENT OF Comment: PATHOLOGY AND GENOMIC The International Normalized Ratio (INR) is a therapeutic MEDICINE monitoring tool for patients who are stable on oral anticoagulant therapy. An INR of 2.0-3.0 is suggested for deep vein thrombosis/pulmonary embolism. Specimen Blood Performing Organization Address [facility] Centercode Phone Number [facility] DEPARTMENT OF PATHOLOGY AND [address] [place] [address] [facility] XR Chest 1 Vw Portable (07/15/2017 2:31 PM)Only the most recent of2 resultswithin the time period is included. Narrative Performed At EXAMINATION:XR CHEST 1 VW PORTABLE [facility] CLINICAL HISTORY:Post-op surgery COMPARISON:July 14 IMPRESSION: Atelectasis or infiltrate lung bases The heart remains enlarged No interval change in support lines [id number] Procedure Note Interface, Radiology Results Incoming - 07/15/2017 2:46 PM CDT EXAMINATION: XR CHEST 1 VW PORTABLE CLINICAL HISTORY: Post-op surgery COMPARISON: July 14 IMPRESSION: Atelectasis or infiltrate lung bases The heart remains enlarged No interval change in support lines [id number] Performing Organization Address [facility] Centerconc Phone Number [facility] [address] [place] [phone] Arterial blood gas (07/15/2017 12:51 PM)Only the most recent of2 resultswithin the time period is included. pH, arterial 7.44 7.35 - 7.45 [facility] DEPARTMENT OF PATHOLOGY AND GENOMIC MEDICINE pCO2, arterial 40 35 - 45 mmHg [facility] DEPARTMENT OF PATHOLOGY AND GENOMIC MEDICINE pO2, arterial 106 (H) 80 - 90 mmHg [facility] DEPARTMENT OF PATHOLOGY AND GENOMIC MEDICINE Bicarbonate, arterial 26.8 21.0 - 28.0 mmol/L [facility] DEPARTMENT OF PATHOLOGY AND GENOMIC MEDICINE Base excess, arterial 3 (H) -2 - 2 mEq/L [facility] DEPARTMENT OF PATHOLOGY AND GENOMIC MEDICINE O2 saturation, arterial 99 95 - 100 % [facility] DEPARTMENT OF PATHOLOGY AND GENOMIC MEDICINE Specimen Blood Performing Organization Address City/[facility]/Zipcode Phone Number [facility] DEPARTMENT OF PATHOLOGY AND [address] [place] [phone] [facility] Urinalysis screen and microscopy, with reflex to culture (07/14/2017 8:20 PM) Specimen site Catheterized [facility] DEPARTMENT OF PATHOLOGY AND GENOMIC MEDICINE Color, UA Yellow [facility] DEPARTMENT OF PATHOLOGY AND GENOMIC MEDICINE Appearance, UA Clear [facility] DEPARTMENT OF PATHOLOGY AND GENOMIC MEDICINE Specific gravity, UA 1.020 1.001 - 1.035 [facility] DEPARTMENT OF PATHOLOGY AND GENOMIC MEDICINE pH, UA 5.0 5.0 - 8.5 [facility] DEPARTMENT OF PATHOLOGY AND GENOMIC MEDICINE Protein, UA Negative Negative [facility] DEPARTMENT OF PATHOLOGY AND GENOMIC MEDICINE Glucose, UA Negative Negative [facility] DEPARTMENT OF PATHOLOGY AND GENOMIC MEDICINE Ketones, UA Negative Negative [facility] DEPARTMENT OF PATHOLOGY AND GENOMIC MEDICINE Bilirubin, UA Negative Negative [facility] DEPARTMENT OF PATHOLOGY AND GENOMIC MEDICINE Blood, UA Moderate (A) Negative [facility] DEPARTMENT OF PATHOLOGY AND GENOMIC MEDICINE Nitrite, UA Negative Negative [facility] DEPARTMENT OF PATHOLOGY AND GENOMIC MEDICINE Urobilinogen, UA <2.0 <2.0 [facility] DEPARTMENT OF PATHOLOGY AND GENOMIC MEDICINE Leukocyte esterase, UA Small (A) Negative [facility] DEPARTMENT OF PATHOLOGY AND GENOMIC MEDICINE Epithelial cells, UA 1 /HPF [facility] DEPARTMENT OF PATHOLOGY AND GENOMIC MEDICINE WBC, UA 36 (H) 0 - 4 /HPF [facility] DEPARTMENT OF PATHOLOGY AND GENOMIC MEDICINE RBC, UA 37 (H) 0 - 2 /HPF [facility] DEPARTMENT OF PATHOLOGY AND GENOMIC MEDICINE Bacteria, UA Few None seen [facility] DEPARTMENT OF PATHOLOGY AND GENOMIC MEDICINE Yeast, UA None seen [facility] DEPARTMENT OF PATHOLOGY AND GENOMIC MEDICINE Yeast with pseudohyphae, UA None seen [facility] DEPARTMENT OF PATHOLOGY AND GENOMIC MEDICINE Specimen Urine Performing Organization Address City/[facility] Centercode Phone Number [facility] DEPARTMENT OF PATHOLOGY AND [address] [place] [address] GENOMIC MEDICINE Gram stain (07/14/2017 8:20 PM) Gram stain result No WBC's or organisms seen. [facility] DEPARTMENT OF PATHOLOGY Comment: AND GENOMIC MEDICINE Specimen Information Specimen Source: Urine Specimen Site: Catheterized Specimen Urine - Catheterized Performing Organization Address City/[facility] Centercode Phone Number [facility] DEPARTMENT OF PATHOLOGY AND [address] [place] [address] MEDICINE Urine culture (07/14/2017 8:20 PM) Urine culture isolate No growth after 2 days. [facility] DEPARTMENT OF Comment: PATHOLOGY AND GENOMIC Specimen Information MEDICINE Specimen Source: Urine Specimen Site: Catheterized Specimen Urine - Catheterized Performing Organization Address City/[facility] Centercode Phone Number [facility] DEPARTMENT OF PATHOLOGY AND [address] [place] [address] Ionized calcium, arterial (07/14/2017 7:42 PM)Only the most recent of5 resultswithin the time period is included. Ionized calcium, arterial 1.08 (L) 1.11 - 1.32 mmol/L [facility] DEPARTMENT OF PATHOLOGY AND GENOMIC MEDICINE Specimen Blood Performing Organization Address [facility] Centerconc Phone Number [facility] DEPARTMENT OF PATHOLOGY AND [address] [place] [address] GENOMIC [facility] Partial thromboplastin time, activated (07/14/2017 7:42 PM) PTT 28.0 23.0 - 36.0 sec [facility] DEPARTMENT OF PATHOLOGY Comment: AND GENOMIC MEDICINE PTT therapeutic range for unfractionated heparin is 61.0-112.0 seconds which corresponds to Anti-Xa 0.3-0.7 U/ml. Specimen Blood Performing Organization Address [facility] Centercode Phone Number [facility] DEPARTMENT OF PATHOLOGY AND [address] [place] [address] [facility] MEDICINE Intraoperative monitoring (07/14/2017 4:19 PM) Narrative Performed At INTRAOPERATIVE NEURO MONITORING Patient Name: Siri Iniguez Date of : 1965 Gender: female Surgical Procedure: Revision PSIF T2-S1 Pelvis- Posterior OR: (RICK) Room #: (19) Tech #1: (JN) Start Time: (09:25) End Time: (15:52) Total Time (in hours): (7) Date of Service: 07/14/17 Physician IOM Time: 7 Hours Procedure(s) performed During IOM: 51067, 82981, 41254 ICD10: M41.9 Stimulation Parameters Ulnar nerves individually [...] of4 resultswithin the time period is included. Sodium, syringe 136 135 - 148 mEq/L [facility] DEPARTMENT OF PATHOLOGY AND GENOMIC MEDICINE Specimen Blood Performing Organization Address City/[facility] Phone Number [facility] DEPARTMENT OF PATHOLOGY AND [address] [place] [address] [facility] [employer] Potassium, syringe (07/14/2017 3:44 PM)Only the most recent of4 resultswithin the time period is included. Potassium, syringe 4.0 3.5 - 5.0 mEq/L [facility] DEPARTMENT OF PATHOLOGY AND GENOMIC MEDICINE Specimen Blood Performing Organization Address [facility] Phone Number [facility] DEPARTMENT OF PATHOLOGY AND [address] [place] [address] [facility] Hemoglobin, syringe (07/14/2017 3:44 PM)Only the most recent of4 resultswithin the time period is included. Hemoglobin, syringe 10.0 (L) 12.0 - 16.0 g/dL [facility] DEPARTMENT OF PATHOLOGY AND GENOMIC MEDICINE Specimen Blood Performing Organization Address City/[facility] Centercode Phone Number [facility] DEPARTMENT OF PATHOLOGY AND [address] [place] [address] Glucose level, syringe (07/14/2017 3:44 PM)Only the most recent of4 resultswithin the time period is included. Glucose, syringe 190 (H) 65 - 99 mg/dL [facility] DEPARTMENT OF PATHOLOGY AND GENOMIC MEDICINE Specimen Blood Performing Organization Address City/[facility]/Zipcode Phone Number [facility] DEPARTMENT OF PATHOLOGY AND [address] [place] [address] [facility] Arterial blood gas, corrected (07/14/2017 3:44 PM)Only the most recent of4 resultswithin the time period is included. pH, arterial 7.36 7.35 - 7.45 [facility] DEPARTMENT OF PATHOLOGY AND GENOMIC MEDICINE pCO2, arterial 41 35 - 45 mmHg [facility] DEPARTMENT OF PATHOLOGY AND GENOMIC MEDICINE pO2, arterial 190 (H) 80 - 90 mmHg [facility] DEPARTMENT OF PATHOLOGY AND GENOMIC MEDICINE Temperature, Celsius 37.0 Degrees C [facility] DEPARTMENT OF PATHOLOGY AND GENOMIC MEDICINE O2 saturation, arterial 100 95 - 100 % [facility] DEPARTMENT OF PATHOLOGY AND GENOMIC MEDICINE pH, arterial corrected 7.36 [facility] DEPARTMENT OF PATHOLOGY AND GENOMIC MEDICINE pCO2, arterial corrected 41 mmHg [facility] DEPARTMENT OF PATHOLOGY AND GENOMIC MEDICINE pO2, arterial corrected 190 mmHg [facility] DEPARTMENT OF PATHOLOGY AND GENOMIC MEDICINE Base excess, arterial -2 -2 - 2 mEq/L [facility] DEPARTMENT OF PATHOLOGY AND GENOMIC MEDICINE Specimen Blood Performing Organization Address City/State/[facility] Centercode Phone Number [facility] DEPARTMENT OF PATHOLOGY AND [address] [place] [address] [facility] Ludesi XR Thoracolumbar Spine 2 Vw (07/14/2017 3:30 PM) Narrative Performed At EXAMINATION: XR THORACOLUMBAR SPINE 2 VW [facility] CLINICAL HISTORY: Intraoperative COMPARISON:Lumbar spine radiograph 09/04/2015 IMPRESSION: Single lateral intraoperative radiograph of the lumbar spine was obtained.The most inferior fully formed disc is presumed [...] of the fourth most inferior pedicle screws. [id number] Procedure Note Interface, Radiology Results Incoming - [...] of the fourth most inferior pedicle screws. [id number] Performing Organization Address City/[facility] Centercode Phone Number [facility] [address] [place] [address] [place] > I Hour (07/14/2017 2:20 PM) Narrative Performed At EXAMINATION:OR [place] 1 HOUR [facility] C-arm fluoroscopy was requested in [place]. Location: [facility] OR room#19 O-ARM SCANS:3 Procedure:REVISION POSTERIOR SPINAL INSTRUMENTATION / FUSION T3-S1 PELVIS Start:11:00am End:2:20pm Fluoro Time:11sec Dose(mGy):171.53 Tech:TN Date:07/14/17 IMPRESSION: Separate operative report will be issued by the physician performing the procedure. [id number] Procedure Note Hm Interface, Radiology Results Incoming - 07/14/2017 9:48 PM CDT EXAMINATION: [place] 1 HOUR C-arm fluoroscopy was requested in OR. Location: [facility] OR room#19 O-ARM SCANS:3 Procedure:REVISION POSTERIOR SPINAL INSTRUMENTATION / FUSION T3-S1 PELVIS Start:11:00am End:2:20pm Fluoro Time:11sec Dose(mGy):171.53 Tech:[place] Date:07/14/17 IMPRESSION: Separate operative report will be issued by the physician performing the procedure. [id number] Performing Organization Address [facility] [facility] Centercode Phone Number [facility] [address] [place] [address] Surgical pathology request (07/14/2017 7:17 AM) [facility] DEPARTMENT OF PATHOLOGY AND GENOMIC MEDICINE Surgical pathology report See link below for PDF [facility] DEPARTMENT OF Lab Report PATHOLOGY AND GENOMIC MEDICINE Result status This is Final Report to [facility] DEPARTMENT OF [id number] PATHOLOGY AND GENOMIC MEDICINE Performing Organization Address City/[facility]/Zipcode Phone Number [facility] DEPARTMENT OF PATHOLOGY AND [address] [place] [address] [facility]INE Prepare platelets (07/13/2017 1:45 PM) Product name Apheresis Platelet ACDA [facility] DEPARTMENT OF LRIRR #1 PATHOLOGY AND GENOMIC MEDICINE Unit number [id number] [facility] DEPARTMENT OF PATHOLOGY AND GENOMIC MEDICINE Product code [id number] [facility] DEPARTMENT OF PATHOLOGY AND GENOMIC MEDICINE Dispense status Transfused [facility] DEPARTMENT OF PATHOLOGY AND GENOMIC MEDICINE Blood expiration date [facility] DEPARTMENT OF PATHOLOGY AND GENOMIC MEDICINE Blood type code 7300 [facility] DEPARTMENT OF PATHOLOGY AND GENOMIC MEDICINE Blood type B POSITIVE [facility] DEPARTMENT OF PATHOLOGY AND GENOMIC MEDICINE Performing Organization Address City/[facility] Cent[facility]ode Phone Number [facility] DEPARTMENT OF PATHOLOGY AND [address] [place] [address] [facility] Prepare fresh frozen plasma (07/13/2017 1:45 PM) Product name Thawed Plasma [facility] DEPARTMENT OF PATHOLOGY AND GENOMIC MEDICINE Unit number [id number] [facility] DEPARTMENT OF PATHOLOGY AND GENOMIC MEDICINE Product code [id number] [facility] DEPARTMENT OF PATHOLOGY AND GENOMIC MEDICINE Dispense status Transfused [facility] DEPARTMENT OF PATHOLOGY AND GENOMIC MEDICINE Blood expiration date [facility] DEPARTMENT OF PATHOLOGY AND GENOMIC MEDICINE Blood type code 6200 [facility] DEPARTMENT OF PATHOLOGY AND GENOMIC MEDICINE Blood type A POSITIVE [facility] DEPARTMENT OF PATHOLOGY AND GENOMIC MEDICINE Product name Thawed Plasma [facility] DEPARTMENT OF PATHOLOGY AND GENOMIC MEDICINE Unit number [id number] [facility] DEPARTMENT OF PATHOLOGY AND GENOMIC MEDICINE Product code [id number] [facility] DEPARTMENT OF PATHOLOGY AND GENOMIC MEDICINE Dispense status Transfused [facility] DEPARTMENT OF PATHOLOGY AND GENOMIC MEDICINE Blood expiration date [facility] DEPARTMENT OF PATHOLOGY AND GENOMIC MEDICINE Blood type code 6200 [facility] DEPARTMENT OF PATHOLOGY AND GENOMIC MEDICINE Blood type A POSITIVE [facility] DEPARTMENT OF PATHOLOGY AND GENOMIC MEDICINE Performing Organization Address City/State/Zipcode Phone Number [facility] DEPARTMENT OF PATHOLOGY AND [address] [place] [phone] [facility] Prepare RBC, 6 Units (07/13/2017 1:45 PM) Product name Red Blood Cells -1, [facility] DEPARTMENT OF Leukored PATHOLOGY AND GENOMIC MEDICINE Unit number [id number] [facility] DEPARTMENT OF PATHOLOGY AND GENOMIC MEDICINE Product code [id number] [facility] DEPARTMENT OF PATHOLOGY AND GENOMIC MEDICINE Dispense status Transfused [facility] DEPARTMENT OF PATHOLOGY AND GENOMIC MEDICINE Blood expiration date [facility] DEPARTMENT OF PATHOLOGY AND GENOMIC MEDICINE Blood type code 6200 [facility] DEPARTMENT OF PATHOLOGY AND GENOMIC MEDICINE Blood type A POSITIVE [facility] DEPARTMENT OF PATHOLOGY AND GENOMIC MEDICINE Product name Red Blood Cells -1, [facility] DEPARTMENT OF Leukored PATHOLOGY AND GENOMIC MEDICINE Unit number [id number] [facility] DEPARTMENT OF PATHOLOGY AND GENOMIC MEDICINE Product code [id number] [facility] DEPARTMENT OF PATHOLOGY AND GENOMIC MEDICINE Dispense status Transfused [facility] DEPARTMENT OF PATHOLOGY AND GENOMIC MEDICINE Blood expiration date [facility] DEPARTMENT OF PATHOLOGY AND GENOMIC MEDICINE Blood type code 6200 [facility] DEPARTMENT OF PATHOLOGY AND GENOMIC MEDICINE Blood type A POSITIVE [facility] DEPARTMENT OF PATHOLOGY AND GENOMIC MEDICINE Product name Red Blood Cells -1, [facility] DEPARTMENT OF Leukored PATHOLOGY AND GENOMIC MEDICINE Unit number [id number] [facility] DEPARTMENT OF PATHOLOGY AND GENOMIC MEDICINE Product code [id number] [facility] DEPARTMENT OF PATHOLOGY AND GENOMIC MEDICINE Dispense status Returned to not [facility] DEPARTMENT OF transfused PATHOLOGY AND GENOMIC MEDICINE Blood expiration date [facility] DEPARTMENT OF PATHOLOGY AND GENOMIC MEDICINE Blood type code 6200 [facility] DEPARTMENT OF PATHOLOGY AND GENOMIC MEDICINE Blood type A POSITIVE [facility] DEPARTMENT OF PATHOLOGY AND GENOMIC MEDICINE Product name Red Blood Cells -1, [facility] DEPARTMENT OF Leukored PATHOLOGY AND GENOMIC MEDICINE Unit number [id number] [facility] DEPARTMENT OF PATHOLOGY AND GENOMIC MEDICINE Product code [id number] [facility] DEPARTMENT OF PATHOLOGY AND GENOMIC MEDICINE Dispense status Returned to BB not [facility] DEPARTMENT OF transfused PATHOLOGY AND GENOMIC MEDICINE Blood expiration date [facility] DEPARTMENT OF PATHOLOGY AND GENOMIC MEDICINE Blood type code 6200 [facility] DEPARTMENT OF PATHOLOGY AND GENOMIC MEDICINE Blood type A POSITIVE [facility] DEPARTMENT OF PATHOLOGY AND GENOMIC MEDICINE Product name Red Blood Cells -1, [facility] DEPARTMENT OF Leukored PATHOLOGY AND GENOMIC MEDICINE Unit number [id number] [facility] DEPARTMENT OF PATHOLOGY AND GENOMIC MEDICINE Product code [id number] [facility] DEPARTMENT OF PATHOLOGY AND GENOMIC MEDICINE Dispense status Returned to BB not [facility] DEPARTMENT OF transfused PATHOLOGY AND GENOMIC MEDICINE Blood expiration date [facility] DEPARTMENT OF PATHOLOGY AND GENOMIC MEDICINE Blood type code 6200 [facility] DEPARTMENT OF PATHOLOGY AND GENOMIC MEDICINE Blood type A POSITIVE [facility] DEPARTMENT OF PATHOLOGY AND GENOMIC MEDICINE Product name Red Blood Cells -1, [facility] DEPARTMENT OF Leukored PATHOLOGY AND GENOMIC MEDICINE Unit number [id number] [facility] DEPARTMENT OF PATHOLOGY AND GENOMIC MEDICINE Product code [id number] [facility] DEPARTMENT OF PATHOLOGY AND GENOMIC MEDICINE Dispense status Returned to BB not [facility] DEPARTMENT OF transfused PATHOLOGY AND GENOMIC MEDICINE Blood expiration date [id number] [facility] DEPARTMENT OF PATHOLOGY AND GENOMIC MEDICINE Blood type code 6200 [facility] DEPARTMENT OF PATHOLOGY AND GENOMIC MEDICINE Blood type A POSITIVE [facility] DEPARTMENT OF PATHOLOGY AND GENOMIC MEDICINE Performing Organization Address City/[facility]/Zipcode Phone Number [facility] DEPARTMENT OF PATHOLOGY AND [address] [place] [address] GENOMIC MEDICINE Type and screen (07/13/2017 1:45 PM)Only the most recent of2 resultswithin the time period is included. ABO grouping A [facility] DEPARTMENT OF PATHOLOGY AND GENOMIC MEDICINE Rh type POS [facility] DEPARTMENT OF PATHOLOGY AND GENOMIC MEDICINE Antibody screen (gel) NEG [facility] DEPARTMENT OF PATHOLOGY AND GENOMIC MEDICINE Specimen Blood Performing Organization Address [facility] Centerconc Phone Number [facility] DEPARTMENT OF PATHOLOGY AND [address] [place], [place] [phone] GENOMIC [facility] CBC hemogram (07/11/2017 5:40 AM) WBC 6.57 4.50 - 11.00 k/uL [facility] DEPARTMENT OF PATHOLOGY AND GENOMIC MEDICINE RBC 4.05 (L) 4.20 - 5.50 m/uL [facility] DEPARTMENT OF PATHOLOGY AND GENOMIC MEDICINE HGB 12.3 12.0 - 16.0 g/dL [facility] DEPARTMENT OF PATHOLOGY AND GENOMIC MEDICINE HCT 37.6 37.0 - 47.0 % [facility] DEPARTMENT OF PATHOLOGY AND GENOMIC MEDICINE MCV 92.8 82.0 - 100.0 fL [facility] DEPARTMENT OF PATHOLOGY AND GENOMIC MEDICINE MCH 30.4 27.0 - 34.0 pg [facility] DEPARTMENT OF PATHOLOGY AND GENOMIC MEDICINE MCHC 32.7 31.0 - 37.0 g/dL [facility] DEPARTMENT OF PATHOLOGY AND GENOMIC MEDICINE RDW - SD 47.0 37.0 - 55.0 fL [facility] DEPARTMENT OF PATHOLOGY AND GENOMIC MEDICINE MPV 10.1 8.8 - 13.2 fL [facility] DEPARTMENT OF PATHOLOGY AND GENOMIC MEDICINE Platelet count 203 150 - 400 k/uL [facility] DEPARTMENT OF PATHOLOGY AND GENOMIC MEDICINE Nucleated RBC 0.00 /100 WBC [facility] DEPARTMENT OF PATHOLOGY AND GENOMIC MEDICINE Specimen Blood Performing Organization Address City/[facility] Cent[facility]ode Phone Number [facility] DEPARTMENT OF PATHOLOGY AND [address] [place] [address] [facility] Hemoglobin A1c (06/22/2017 5:35 PM) Hemoglobin A1C 5.8 (H) 4.0 - 5.6 % [facility] DEPARTMENT OF PATHOLOGY Comment: AND GENOMIC MEDICINE HbA1c cutoffs for diagnosing diabetes: 4.0% - 5.6%=normal 5.7% - 6.4%=increased risk for diabetes (prediabetes) >=6.5%=diabetes Goals for glycemic control (ADA 2016) < 7.0%Target for non adults with diabetes. More or less stringent targets may be appropriate for individual patients. <7.5% Target for Children and adolescents with type 1 diabetes. Specimen Blood Performing Organization Address City/State/Zipcode Phone Number [facility] DEPARTMENT OF PATHOLOGY AND [address] [place] [address] [employer] after 02/15/2017 Insurance Payer Benefit Plan / Group Subscriber ID Type Phone Address [employer] O/POS xxxxxxxxxxx O Home: [facility] [phone] [phone] SIRI INIGUEZ Reconstructive Self 1965 Home: [facility] Surgery [phone] [phone] SIRI INIGUEZ [employer] Party Self 1965 Home: [facility] Liability [phone] [phone]
--- NOTE | 2018-02-16 14:00 | RAD REPORT ---
EXAM DESCRIPTION: RAD - Foot Right 3 View - 02/16/2018 1:49 pm CLINICAL HISTORY: Medial foot pain COMPARISON: None. FINDINGS: No fracture, dislocation or periosteal reaction. No acute or destructive bone process. Mod erate degenerative changes present at the talus articulation with the navicular bone. There is joint space narrowing with sclerotic and spurring changes to the articular surfaces. Minimal degenerative change at the first MTP joint without spurring or erosion. Calcification is seen in the plantar tendon without plantar spur. There is hardware in the anterolateral calcaneus. No air or foreign body in the soft tissues. IMPRESSION: No fracture or acute bone finding. Moderate severity degenerative change at the talus navicular articulation.
--- NOTE | 2018-02-16 14:04 | ER ---
Nurse's Notes [facility] Name: Siri Rutherford Age: 52 yrs Sex: Female : 1965 Arrival Date: 02/16/2018 Time: 12:00 Bed 7 Private MD: Diagnosis: Unspecified sprain of right foot;Pain in right foot Presentation: 02/16 12:08 Presenting complaint: Patient states: Right foot pain since last night, worse with aj weight bearing. Patient reports she has had decreased use of left leg and has been favoring right leg recently. Transition of care: patient was not received from another setting of care. Onset of symptoms was February 15, 2018. Risk Assessment: Do you want to hurt yourself or someone else? Patient reports no desire to harm self or others. Initial Sepsis Screen: Does the patient meet any 2 criteria? No. Patient's initial sepsis screen is negative. Does the patient have a suspected source of infection? No. Patient's initial sepsis screen is negative. Care prior to arrival: None. 12:08 Method Of Arrival: Wheelchair aj 12:08 Acuity: MARILU 3 aj Triage Assessment: 12:12 General: Appears in no apparent distress. comfortable, Behavior is calm, cooperative, aj appropriate for age. Pain: Complains of pain in right foot. Neuro: Level of Consciousness is awake, alert, obeys commands, Oriented to person, place, time, situation, Appropriate for age. Respiratory: Airway is patent Respiratory effort is even, unlabored, Respiratory pattern is regular, symmetrical. Derm: Skin is intact, is healthy with good turgor, Skin is pink, warm \T\ dry. normal. Musculoskeletal: Reports pain in right foot. 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 - Social history:: Smoking status: Patient uses tobacco products, smokes two packs cigarettes per day. - Ebola Screening: : Patient negative for fever greater than or equal to 101.5 degrees Fahrenheit, and additional compatible Ebola Virus Disease symptoms Patient denies exposure to infectious person Patient denies travel to an Ebola-affected area in the 21 days before illness onset No symptoms or risks identified at this time. - Family history:: not pertinent. - Hospitalizations: : No recent hospitalization is reported. Screenin:15 Abuse screen: Denies threats or abuse. Denies injuries from another. Nutritional bp screening: No deficits noted. Tuberculosis screening: No symptoms or risk factors identified. Fall Risk None identified. Assessment: 12:15 General: Appears in no apparent distress. uncomfortable, obese, Behavior is bp cooperative, appropriate for age, anxious. Pain: Complains of pain in right foot. Neuro: Level of Consciousness is awake, alert, obeys commands, Oriented to person, place, time, situation, Appropriate for age. Cardiovascular: No deficits noted. Respiratory: Airway is patent Respiratory effort is even, unlabored, Respiratory pattern is regular, symmetrical. GI: No signs and/or symptoms were reported involving the gastrointestinal system. : No signs and/or symptoms were reported regarding the genitourinary system. EENT: No deficits noted. Derm: No deficits noted. Musculoskeletal: Circulation, motion, and sensation intact. Range of motion: intact in all extremities. 13:21 Reassessment: XRAY COMPLETED, RESULTS PENDING. VS STABLE. bp 14:33 Reassessment: Patient appears in no apparent distress at this time. Patient and/or tw2 family updated on plan of care and expected duration. Pain level reassessed. Patient is alert, oriented x 3, equal unlabored respirations, skin warm/dry/pink. Vital Signs: 12:12 BP 131 / 75; Pulse 83; Resp 17; Temp 98.0; Pulse Ox 98% on R/A; Weight 113.4 kg; Height aj 5 ft. 6 in. (167.64 cm); 13:21 BP 116 / 69; Pulse 72; Resp 16; Pulse Ox 97% ; bp 14:33 BP 105 / 64; Pulse 71; Resp 17; Pulse Ox 96% on R/A; tw2 12:12 Body Mass Index 40.35 (113.40 kg, 167.64 cm) ED Course: 12:00 Patient arrived in ED. mr 12:08 Singh Parker MD is Attending Physician. rn 12:09 Triage completed. aj 12:12 Arm band placed on left wrist. Patient placed in an exam room. aj 12:15 Patient has correct armband on for positive identification. Bed in low position. Call bp light in reach. Side rails up X2. Adult w/ patient. 12:16 Messi Alexander, RN is Primary Nurse. bp 13:49 XRAY Foot RIGHT 3 View In Process Unspecified. EDMS 14:50 No provider procedures requiring assistance completed. Patient did not have IV access tw2 during this emergency room visit. Administered Medications: 14:12 Drug: TORadol 30 mg Route: IM; Site: right gluteus; tw2 14:34 Follow up: Response: No adverse reaction tw2 Outcome: 14:02 Discharge ordered by . rn 14:50 Discharged to home via wheelchair. tw2 14:50 Condition: stable 14:50 Discharge instructions given to patient, Instructed on discharge instructions, follow up and referral plans. Demonstrated understanding of instructions, follow-up care. 14:51 Patient left the ED. tw2 Signatures: Dispatcher [employer] Rhonda Evangelista, RN Diandra Bedoya mr Singh Parker MD MD rn Wise, Tara, RN RN tw2 Messi Alexander RN RN bp
--- NOTE | 2018-02-16 14:04 | EDPHYS ---
Physician Documentation [facility] Name: Siri Rutherford Age: 52 yrs Sex: Female : 1965 Arrival Date: 02/16/2018 Time: 12:00 Bed 7 Private MD: ED Physician Singh Parker HPI: 02/16 12:36 This 52 yrs old Female presents to ER via Wheelchair with complaints of Ankle rn Injury. 12:37 The patient presents with pain. The complaints affect the right foot. Onset: The rn symptoms/episode began/occurred this morning. Associated signs and symptoms: Pertinent negatives: fever, rash, swelling, warmth, weakness. Severity of symptoms: At their worst the symptoms were moderate, in the emergency department the symptoms are unchanged. The patient has not experienced similar symptoms in the past. Reports has trouble walking with left leg due to fall yesterday, twisted left knee, feels a little better, didn't have immediate foot pain yesterday but this AM noticed right foot pain, unsure if related to injury, but no fever/rash/laceration. . 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 - Social history:: Smoking status: Patient uses tobacco products, smokes two packs cigarettes per day. - Ebola Screening: : Patient negative for fever greater than or equal to 101.5 degrees Fahrenheit, and additional compatible Ebola Virus Disease symptoms Patient denies exposure to infectious person Patient denies travel to an Ebola-affected area in the 21 days before illness onset No symptoms or risks identified at this time. - Family history:: not pertinent. - Hospitalizations: : No recent hospitalization is reported. ROS: 12:37 Constitutional: Negative for fever, chills, and weight loss, MS/Extremity: + right foot rn injury and pain Exam: 12:37 Constitutional: This is a well developed, well nourished patient who is awake, alert, rn and in no acute distress. MS/ Extremity: Pulses equal, no cyanosis. Neurovascular intact. Full, normal range of motion. Equal circumference. + right medial foot tenderness without deformity, no tenderness or deformity of toes. No ankle or tib/fib pain. Vital Signs: 12:12 BP 131 / 75; Pulse 83; Resp 17; Temp 98.0; Pulse Ox 98% on R/A; Weight 113.4 kg; Height aj 5 ft. 6 in. (167.64 cm); 13:21 BP 116 / 69; Pulse 72; Resp 16; Pulse Ox 97% ; bp 14:33 BP 105 / 64; Pulse 71; Resp 17; Pulse Ox 96% on R/A; tw2 12:12 Body Mass Index 40.35 (113.40 kg, 167.64 cm) aj MDM: 12:08 Patient medically screened. rn 14:02 Differential diagnosis: fracture, sprain. Data reviewed: vital signs, nurses notes, rn radiologic studies, plain films, and as a result, I will discharge patient. Counseling: I had a detailed discussion with the patient and/or guardian regarding: the historical points, exam findings, and any diagnostic results supporting the discharge/admit diagnosis, radiology results, the need for outpatient follow up, to return to the emergency department if symptoms worsen or persist or if there are any questions or concerns that arise at home. Special discussion: I discussed with the patient/guardian in detail that at this point there is no indication for admission to the hospital. It is understood, however, that if the symptoms persist or worsen the patient needs to return immediately for re-evaluation. 14:06 ED course: Pt requests pain medicine before she goes, is sleeping when I walked in, rn toradol ordered. . 02/16 12:30 Order name: XRAY Foot RIGHT 3 View; Complete Time: 14:01 rn Administered Medications: 14:12 Drug: TORadol 30 mg Route: IM; Site: right gluteus; tw2 14:34 Follow up: Response: No adverse reaction tw2 Disposition: 02/16/18 14:02 Discharged to Home. Impression: Unspecified sprain of right foot, Pain in right foot. - Condition is Stable. - Discharge Instructions: Musculoskeletal Pain, Foot Pain. - Medication Reconciliation Form, Thank You Letter, Antibiotic Education, Prescription Opioid Use form. - Follow up: Private Physician; When: As needed; Reason: Recheck today's complaints, Re-evaluation by your physician. - Problem is new. - Symptoms have improved. Signatures: Dispatcher [employer] EDRhonda Vegas RN Singh Kennedy MD MD rn Wise, Tara, RN RN tw2 Corrections: (The following items were deleted from the chart) 14:51 14:02 02/16/2018 14:02 Discharged to Home. Impression: Unspecified sprain of right tw2 foot; Pain in right foot. Condition is Stable. Forms are Medication Reconciliation Form, Thank You Letter, Antibiotic Education, Prescription Opioid Use. Follow up: Private Physician; When: As needed; Reason: Recheck today's complaints, Re-evaluation by your physician. Problem is new. Symptoms have improved. rn
[2018-02-16] MEDS ORDERED: KETOROLAC 30 MG/ML INJ ONE (14:16)
[2018-02-16 14:56] VITALS: TEMP 98
[2018-02-16 14:58] VITALS: BP 105/64; O2SAT 96
== END 2018-02-16 14:51 | disposition home or self-care (01) ==
LOC: ER 11:56
DX: S93.601A Unspecified sprain of right foot, initial encounter (principal); X58.XXXA Exposure to other specified factors, initial encounter; Y93.9 Activity, unspecified; Y92.9 Unspecified place or not applicable; Z88.5 Allergy status to narcotic agent; Z88.8 Allergy status to other drugs, medicaments and biological substances; F17.210 Nicotine dependence, cigarettes, uncomplicated
CPT/HCPCS: 96372; 99283

== ENCOUNTER 2018-08-01 18:56 | Observation (INO) | payer OTHER ==
--- OUTSIDE RECORDS SUMMARY | 2018-08-01 19:15 | XMS REPORT | Clinical Summary ---
:1965 Author Organization [facility] Address [address] [place] [address] Care Team Providers Name Role Phone Asked, No Pcp Primary Care Provider Unavailable Allergies Active Allergy Reactions Severity Noted Date Comments Adhesive Tape-Silicones 06/22/2017 blisters Prochlorperazine Edisylate 06/22/2017 Legs go violently crazy Medications Medication Sig Dispensed Refills Start End Date Status Date CYANOCOBALAMIN, Inject as 0 Active VITAMIN B-12, (B-12 directed every COMPLIANCE INJ) 14 (fourteen) days. cholecalciferol, Take 2,000 Units 0 Active vitamin D3, (VITAMIN by mouth daily. D3) 2,000 unit capsule capsule traMADol (ULTRAM) 50 Take 50 mg by 0 08/04/19 Discontinued mg tablet mouth every 6 18 (six) hours as needed for moderate pain. HYDROMORPHONE HCL Inject as 0 08/04/19 Discontinued (DILAUDID INJ) directed. Via 18 med pump diphenhydrAMINE Take 25 mg by 0 08/04/19 Discontinued (BENADRYL) 25 mg mouth nightly as 18 tablet needed for sleep. naproxen sodium Take 2 tablets 0 08/04/19 Discontinued (ALEVE) 220 mg by mouth 18 capsule nightly. acetaminophen-codein Take 1 tablet by 0 08/04/19 Discontinued e (TYLENOL WITH mouth every 4 18 CODEINE #3) 300-30 (four) hours as mg per tablet needed for moderate pain. gabapentin Take 200 mg by 0 08/04/19 Discontinued (NEURONTIN) 100 mg mouth 3 (three) 18 capsule times a day. diazePAM (VALIUM) 5 Take 1 tablet (5 20 tablet 0 04//201 08/06/19 MG tablet mg total) by 8 [...] moderate pain for up to 90 days. gabapentin Take 1 capsule 90 capsule 0 05/24/19 (NEURONTIN) 300 mg (300 mg total) 8 19 capsule by mouth 3 (three) times a day for 90 days. 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 Spinal instability 07/10/2017 Encounters Date Type Specialty Care Team Description 02/23/2018 Orders Only Orthopedic Surgery Dm Barraza MA 01/19/2018 Orders Only Orthopedic Surgery Dm Barraza, Scoliosis, MA unspecified scoliosis type, unspecified spinal region (Primary Dx) 07/20/2017 - Hospital Encounter Rehabilitation Vani Montes S/P spinal fusion (Primary Dx); 08/03/2017 MD Ghanshyam Gait abnormality; Chronic bilateral low back pain without sciatica; Spinal instability, unspecified spinal region after 07/31/2017 Social History Tobacco Use Types Packs/Day Years Used Date Current Every Day Smoker Cigarettes 1 18 Smokeless Tobacco: Never Used Alcohol Use Drinks/Week oz/Week Comments No Sex Assigned at Date Recorded Not on file Job Start Date Occupation Industry Not on file Not on file Not on file Travel History Travel Start Travel End No recent travel history available. Last Filed Vital Signs Vital Sign Reading Time Taken Blood Pressure 103/57 08/03/2017 3:49 PM CDT Pulse 87 08/03/2017 3:49 PM CDT Temperature 36.4 C (97.5 F) 08/03/2017 3:49 PM CDT Respiratory Rate 17 08/03/2017 3:49 PM CDT Oxygen Saturation 92% 08/03/2017 3:49 PM CDT Inhaled Oxygen Concentration - - Weight - - Height - - Body Mass Index - - Plan of Treatment Health Maintenance Due Date Last Done Comments CERVICAL CANCER SCREENING 10/08/1984 BREAST CANCER SCREENING 10/08/2013 COLON CANCER SCREENING 10/08/2013 SHINGLES VACCINES (#1) 10/08/2013 INFLUENZA VACCINE 11/22/2018 Implants Implanted Type Area Nutritional Chemist Device Shelf Model / Serial Identifier Expiration / Lot Date System Spine Selnt For Dural Selng Exact 5ml Duraseal - [id number] Cardiovascular N/A: INTEGRA 06/21/2018 [id number] / Implanted: Qty: 1 on 07/14/2017 by Mal Zapata Implants N/A LIFESCIENCE / NEURO [id number] Paste Dbm Easy-Dispensing Wdmth Syr 10ml [address] - [id number] - [id number] Human Tissue N/A: MEDTRONIC SPINAL 03/09/2019 [id number] / Implanted: Qty: 1 on 07/14/2017 by Mal Zapata Implants N/A GRAFT [id number] / TECHNOLOGIES [id number] Paste Dbm Easy-Dispensing Wdmth Syr 10ml [address] - [id number] - [id number] Human Tissue N/A: MEDTRONIC SPINAL 01/05/2019 [id number] / Implanted: Qty: 1 on 07/14/2017 by Mla Zapata Implants N/A GRAFT [id number] / TECHNOLOGIES [id number] Chip Canc Allograft Leader [facility] 30cc 1.7-10mm - [id number] - [id number] Human Tissue N/A: MUSCULOSKELETAL 04/20/2020 [id number] / Implanted: Qty: 1 on 07/14/2017 by Mal Zapata Implants N/A TRANSPLANT [id number] / FOUNDATION [id number] Chip Canc Allograft Leader [facility] 30cc 1.7-10mm - [id number] - [id number] Human Tissue N/A: MUSCULOSKELETAL 12/08/2019 [id number] / Implanted: Qty: 1 on 07/14/2017 by Mal Zapata Implants N/A TRANSPLANT [id number] / FOUNDATION [id number] Paste Dbm Easy-Dispensing Wdmth Syr 10ml [address] - [id number] - [id number] Human Tissue N/A: MEDTRONIC SPINAL 03/09/2019 [id number] / Implanted: Qty: 1 on 07/14/2017 by Mal Zapata Implants N/A GRAFT [id number] / TECHNOLOGIES [id number] Paste Dbm Easy-Dispensing Wdmth Syr 10ml [address] - [id number] - [id number] Human Tissue N/A: MEDTRONIC SPINAL 01/05/2019 [id number] / Implanted: Qty: 1 on 07/14/2017 by Mal Zapata Implants N/A GRAFT [id number] / TECHNOLOGIES [id number] Screw [id number] 5.5 Mas 6.5x40 Cc - [id number] IPM IMPLANT N/A: MEDTRONIC [id number] / Implanted: Qty: 3 on 07/14/2017 by Mal Zapata DEVICES N/A SOFAMOR DANEK / Screw [id number] 5.5 Mas 6.5x45 Cc - [id number] IPM IMPLANT N/A: MEDTRONIC [id number] / Implanted: Qty: 4 on 07/14/2017 by Mal Zapata DEVICES N/A SOFAMOR DANEK / Sin [id number] 5.4dfwplutcvmlkg694wtvuin - [id number] IPM IMPLANT N/A: MEDTRONIC [id number] / Implanted: Qty: 2 on 07/14/2017 by Mal Zapata DEVICES N/A SOFAMOR DANEK / Screw [id number] 5.5 Mas 5.5x40 Cc - [id number] IPM IMPLANT N/A: MEDTRONIC [id number] / Implanted: Qty: 4 on 07/14/2017 by Mal Zapata DEVICES N/A SOFAMOR DANEK / Screw [id number] 5.5 Mas 6.5x55 Cc - [id number] IPM IMPLANT N/A: MEDTRONIC [id number] / Implanted: Qty: 1 on 07/14/2017 by Mal Zapata DEVICES N/A SOFAMOR DANEK / Screw [id number] 5.5 Mas 8.5x50 Cc - [id number] IPM IMPLANT N/A: MEDTRONIC [id number] / Implanted: Qty: 1 on 07/14/2017 by Mal Zapata DEVICES N/A SOFAMOR DANEK / Screw [id number] 5.5 Mas 8.5x55 Cc - [id number] IPM IMPLANT N/A: MEDTRONIC [id number] / Implanted: Qty: 1 on 07/14/2017 by Mal Zapata DEVICES N/A SOFAMOR DANEK / Screw [id number] Bs Cnmas 7.5x90 T/C - [id number] IPM IMPLANT N/A: MEDTRONIC [id number] / Implanted: Qty: 2 on 07/14/2017 by Mal Zapata DEVICES N/A SOFAMOR DANEK / Connector [id number] 5/6-6.0 Clsd Lat 25 - [id number] IPM IMPLANT N/A: MEDTRONIC [id number] / Implanted: Qty: 3 on 07/14/2017 by Mal Zapata DEVICES N/A SOFAMOR DANEK / Screw [id number] 5.5 Mas 5.5x25 Cc - [id number] IPM IMPLANT N/A: MEDTRONIC [id number] / Implanted: Qty: 2 on 07/14/2017 by Mal Zapata DEVICES N/A SOFAMOR DANEK / Screw [id number] 5.5 Mas 6.5x35 Cc - [id number] IPM IMPLANT N/A: MEDTRONIC [id number] / Implanted: Qty: 1 on 07/14/2017 by Mal Zapata DEVICES N/A SOFAMOR DANEK / Screw [id number] 5.5 Mas 9.5x50 Cc - [id number] IPM IMPLANT N/A: MEDTRONIC [id number] / Implanted: Qty: 1 on 07/14/2017 by Mal Zapata DEVICES N/A SOFAMOR DANEK / Screw [id number] 5.5 Mas 10.5x50 Cc - [id number] IPM IMPLANT N/A: MEDTRONIC [id number] / Implanted: Qty: 1 on 07/14/2017 by Mal Zapata DEVICES N/A SOFAMOR DANEK / Sin [id number] 5.[address] 600mm - [id number] IPM IMPLANT N/A: MEDTRONIC 04/04/2020 [id number] / Implanted: Qty: 1 on 07/14/2017 by Mal Zapata DEVICES N/A SOFAMOR DANEK / [id number] Screw Bone Canc Lag 4x30mm Ns - [id number] Orthopedic N/A: MEDTRONIC [id number] / Implanted: Qty: 21 on 07/14/2017 by Mal Zapata Trauma Implants N/A SOFAMOR DANEK / Screw Set Std Ti 1/4in 32mm - [id number] Spinal Implants N/A: MEDTRONIC SPINAL [id number] / Implanted: Qty: 7 on 07/14/2017 by Mal Zapata N/A AND BIOLOGICS / Connector Sin Spinal Ti 5.5x5.5mm Strl - [id number] Spinal Implants N/A: MEDTRONIC SPINAL [id number] / Implanted: Qty: 2 on 07/14/2017 by Mal Zapata N/A AND BIOLOGICS / Kit Hemostatic Matrix W/Thrombin 8ml Surgiflo - [id number] Surgical N/A: [facility] 09/21/2018 2994 / Implanted: Qty: 3 on 07/14/2017 by Mal Zapata Implants; N/A / Expanders; [id number] Extenders; Surgical Wires Matrix Hmstc Floseal 10ml W/ Humn F2 - [id number] Surgical N/A: MICHAEL [id number] / Implanted: Qty: 1 on 07/14/2017 by Mal Zapata Implants; N/A HEALTHCARE CHIP / Expanders; [id number] Extenders; Surgical Wires Kit Hemostatic Matrix W/Thrombin 8ml Surgiflo - [id number] Surgical N/A: [facility] 08/21/2018 2994 / Implanted: Qty: 1 on 07/14/2017 by Mal Zapata Implants; N/A / Expanders; [id number] Extenders; Surgical Wires Drain Wound Hbls Round Radopaq Trocar Madeline White 0.18in 15fr - [id number] Surgical N/A: [id number] / Implanted: Qty: 1 on 07/14/2017 by Mal Zapata Implants; N/A REED & / Expanders; REED Extenders; Surgical Wires Drain Wound Hbls Round Radopaq Trocar Madeline White 0.18in 15fr - [id number] Surgical N/A: [facility] / Implanted: Qty: 1 on 07/14/2017 by Mal Zapata Implants; N/A REED & / Expanders; REED Extenders; Surgical Wires Kit Hemostatic Matrix W/Thrombin 8ml Surgiflo - [id number] Surgical N/A: [facility] 10/21/2018 2994 / Implanted: Qty: 2 on 07/14/2017 by Mal Zapata Implants; N/A / Expanders; [id number] Extenders; Surgical Wires Kit Hemostatic Matrix W/Thrombin 8ml Surgiflo - [id number] Surgical N/A: [facility] 09/21/2018 2994 / Implanted: Qty: 1 on 07/14/2017 by Mla Zapata Implants; N/A / Expanders; [id number] Extenders; Surgical Wires Kit Hemostatic Matrix W/Thrombin 8ml Surgiflo - [id number] Surgical N/A: [facility] 09/21/2018 2994 / Implanted: Qty: 1 on 07/14/2017 by Mal Zapata Implants; N/A / Expanders; [id number] Extenders; Surgical Wires Kit Hemostatic Matrix W/Thrombin 8ml Surgiflo - [id number] Surgical N/A: [facility] 10/21/2018 2994 / Implanted: Qty: 2 on 07/14/2017 by Mal Zapata Implants; N/A / Expanders; [id number] Extenders; Surgical Wires Kit Hemostatic Matrix W/Thrombin 8ml Surgiflo - [id number] Surgical N/A: [facility] 09/21/2018 2994 / Implanted: Qty: 1 on 07/14/2017 by Mal Zapata Implants; N/A / Expanders; [id number] Extenders; Surgical Wires Kit Hemostatic Matrix W/Thrombin 8ml Surgiflo - [id number] Surgical N/A: [facility] 09/21/2018 2994 / Implanted: Qty: 1 on 07/14/2017 by Mal Zapata Implants; N/A / Expanders; [id number] Extenders; Surgical Wires Kit Hemostatic Matrix W/Thrombin 8ml Surgiflo - [id number] Surgical N/A: [facility] 09/21/2018 2994 / Implanted: Qty: 1 on 07/14/2017 by Mal Zapata Implants; N/A / Expanders; [id number] Extenders; Surgical Wires Kit Hemostatic Matrix W/Thrombin 8ml Surgiflo - [id number] Surgical N/A: [facility] 09/21/2018 2994 / Implanted: Qty: 1 on 07/14/2017 by Mal Zapata Implants; N/A / Expanders; [id number] Extenders; Surgical Wires Procedures Procedure Name Priority Date/Time Associated Comments Diagnosis ZZESTIMATED GFR Routine 07/31/2017 5:29 Results for this AM CDT procedure are in the results section. BASIC METABOLIC PANEL Routine 07/31/2017 5:29 Results for this AM CDT procedure are in the results section. HC COMPLETE BLD COUNT Routine 07/31/2017 5:29 Results for this W/AUTO DIFF AM CDT procedure are in the results section. after 07/31/2017 Results Estimated GFR (07/31/2017 5:29 AM CDT) GFR Non Af Amer >90 mL/min/1.73 m2 [facility] DEPARTMENT OF PATHOLOGY AND GENOMIC MEDICINE GFR Af Amer >90 mL/min/1.73 m2 [facility] DEPARTMENT OF Comment: PATHOLOGY AND GENOMIC Chronic [...] specimen Performing Organization Address City/State/Zipcode Phone Number [facility] DEPARTMENT OF PATHOLOGY AND [address] [place] [address] [employer] [facility] CBC with platelet and differential (07/31/2017 5:29 AM CDT) WBC 7.49 4.50 - 11.00 k/uL [facility] DEPARTMENT OF PATHOLOGY AND GENOMIC MEDICINE RBC 3.06 (L) 4.20 - 5.50 m/uL [facility] DEPARTMENT OF PATHOLOGY AND GENOMIC MEDICINE HGB 9.1 (L) 12.0 - 16.0 g/dL [facility] DEPARTMENT OF PATHOLOGY AND GENOMIC MEDICINE HCT 28.8 (L) 37.0 - 47.0 % [facility] DEPARTMENT OF PATHOLOGY AND GENOMIC MEDICINE MCV 94.1 82.0 - 100.0 fL [facility] DEPARTMENT OF PATHOLOGY AND GENOMIC MEDICINE MCH 29.7 27.0 - 34.0 pg [facility] DEPARTMENT OF PATHOLOGY AND GENOMIC MEDICINE MCHC 31.6 31.0 - 37.0 g/dL [facility] DEPARTMENT OF PATHOLOGY AND GENOMIC MEDICINE RDW - SD 51.2 37.0 - 55.0 fL [facility] DEPARTMENT OF PATHOLOGY AND GENOMIC MEDICINE MPV 9.2 8.8 - 13.2 fL [facility] DEPARTMENT OF PATHOLOGY AND GENOMIC MEDICINE Platelet count 294 150 - 400 k/uL [facility] DEPARTMENT OF PATHOLOGY AND GENOMIC MEDICINE Nucleated RBC 0.40 /100 WBC [facility] DEPARTMENT OF PATHOLOGY AND GENOMIC MEDICINE Neutrophils 52.5 39.0 - 69.0 % [facility] DEPARTMENT OF PATHOLOGY AND GENOMIC MEDICINE Lymphocytes 35.6 25.0 - 45.0 % [facility] DEPARTMENT OF PATHOLOGY AND GENOMIC MEDICINE Monocytes 6.7 0.0 - 10.0 % [facility] DEPARTMENT OF PATHOLOGY AND GENOMIC MEDICINE Eosinophils 4.5 0.0 - 5.0 % [facility] DEPARTMENT OF PATHOLOGY AND GENOMIC MEDICINE Basophils 0.3 0.0 - 1.0 % [facility] DEPARTMENT OF PATHOLOGY AND GENOMIC MEDICINE Immature granulocytes 0.4Comment: 0.0 - 1.0 % [facility] DEPARTMENT OF "Immature PATHOLOGY AND GENOMIC granulocytes" MEDICINE (promyelocytes, myelocytes, metamyelocytes) Specimen Blood Performing Organization Address City/[facility] Phone Number [facility] DEPARTMENT OF PATHOLOGY [place] [address] [employer] MEDICINE Basic metabolic panel (07/31/2017 5:29 AM CDT) Sodium 137 135 - 148 mEq/L [facility] DEPARTMENT OF PATHOLOGY AND GENOMIC MEDICINE Potassium 4.0 3.5 - 5.0 mEq/L [facility] DEPARTMENT OF PATHOLOGY AND GENOMIC MEDICINE Chloride 98 98 - 112 mEq/L [facility] DEPARTMENT OF PATHOLOGY AND GENOMIC MEDICINE CO2 31 24 - 31 mEq/L [facility] DEPARTMENT OF PATHOLOGY AND GENOMIC MEDICINE Anion gap 8 7 - 15 mEq/L [facility] DEPARTMENT OF PATHOLOGY Comment: AND GENOMIC [facility] Starting from July , anion gap calculation no longer incorporates potassium. Please note the change. BUN 11 6 - 20 mg/dL [facility] DEPARTMENT OF PATHOLOGY AND GENOMIC MEDICINE Creatinine 0.5 0.5 - 0.9 mg/dL [facility] DEPARTMENT OF PATHOLOGY AND GENOMIC MEDICINE Glucose 106 (H) 65 - 99 mg/dL [facility] DEPARTMENT OF PATHOLOGY AND GENOMIC MEDICINE Calcium 8.8 8.3 - 10.2 mg/dL [facility] DEPARTMENT OF PATHOLOGY AND GENOMIC MEDICINE Specimen Plasma specimen Performing Organization Address City/[facility]/Zipcode Phone Number [facility] DEPARTMENT OF PATHOLOGY AND [employer] [place] [address] [employer] [facility] after 07/31/2017 Insurance Payer Benefit Plan / Group Subscriber ID Type Phone Address [employer] OPEN ACCESS/NETWORK xxxxxxxxxxx HMO Siri Rutherford [employer] Self 1965 [phone] (Home) [place] [id number] Siri Rutherford [employer] Party Self 1965 [phone] (Home) [place] [id number] Advance Directives Patient has advance care planning documents on file. For more information, please contact:Dl Reeder[address] [address] [facility] [place] [address]
--- OUTSIDE RECORDS SUMMARY | 2018-08-01 19:16 | XMS REPORT ---
:1965 [facility] Address [address] [place] [address] Dr. Conley [address] [place] [id number] Care Team Providers Name Role Phone Unavailable Unavailable Unavailable Problems This patient has no known problems. Allergies, Adverse Reactions, Alerts This patient has no known allergies or adverse reactions. Medications This patient has no known medications.
[2018-08-01] MEDS ORDERED: POLYETHYL GLY 3350 17 GM/DOSE PO PRN (21:04)
[2018-08-01] MEDS ORDERED: IPRATROPIUM BROM 0.5MG/2.5ML NEB PRN (21:04)
[2018-08-01] MEDS ORDERED: ONDANSETRON 4 MG (ODT) TAB PO PRN (21:04)
[2018-08-01] MEDS ORDERED: LOPERAMIDE HCL 2 MG CAPSULE PO PRN (21:04)
[2018-08-01] MEDS ORDERED: ALBUTEROL 2.5 MG/3 ML NEB SOL NEB PRN (21:04)
[2018-08-01] MEDS ORDERED: ACETAMINOPHEN 325 MG TABLET PO PRN ×2 (21:04)
[2018-08-01] MEDS ORDERED: DIPHENHYDRAMINE 25 MG TAB/CAP PO PRN (21:04)
[2018-08-01 22:17] LABS: Absolute Monocytes 0.5 K/uL (0.1-1.3); Absolute Neutrophil 5.5 K/uL (1.8-8.0); Basophils % 0.3 % (0-1.3); Eosinophils % 2.7 % (0-4.4); Hematocrit 38.8 % (36.0-45.0); Lymphocytes % 32.7 % (15.3-44.8); MPV 8.9 fL (7.6-11.3); Monocytes % 5.3 % (3.3-12.3); RBC Red Blood Cell Count 4.24 M/uL (3.86-4.86)
[2018-08-01 22:55] LABS: ALT/SGPT 20 U/L (12-78); AST/SGOT 12 U/L (15-37); Albumin 3.2 g/dL (3.4-5.0); Alkaline Phosphatase 94 U/L (45-117); BUN Blood Urea Nitrogen 15 mg/dL (7-18); Bicarbonate 29 mmol/L (21-32); Bilirubin Direct < 0.1 mg/dL (0-0.2); Bilirubin Total 0.3 mg/dL (0.2-1.0); Glucose Level 129 mg/dL (74-106); Magnesium 2.3 mg/dL (1.8-2.4); Phosphorus 3.5 mg/dL (2.5-4.9); Potassium 3.9 mmol/L (3.5-5.1); Protein, Total 7.3 g/dL (6.4-8.2); Sodium Level 140 mmol/L (136-145)
[2018-08-01] MEDS ORDERED: VANCOMYCIN 1 GM/VIAL ONE (23:28)
[2018-08-01] MEDS ORDERED: NA CHLORIDE 0.9% 500 ML ONE (23:28)
[2018-08-01] MEDS: NACHLORIDE 0.45% 1,000 ML IV SCH (23:30)
[2018-08-01] MEDS: HYDROMORPHONE HCL 1 MG/ML INJ IV PRN (23:31)
[2018-08-02 00:58] VITALS: BMI 41.5
[2018-08-02] MEDS: VANCOMYCIN 2 GM in NA CHLORIDE 0.9% 500 ML IVPB SCH ×2 (02:00→14:42)
[2018-08-02] MEDS: HYDROMORPHONE HCL 1 MG/ML INJ IV PRN ×4 (03:41→20:06)
[2018-08-02] MEDS: ONDANSETRON 4 MG/2 ML VIAL IV PRN ×4 (03:41→20:06)
[2018-08-02] MEDS ORDERED: VANCOMYCIN 1 GM/VIAL ONE (04:15)
[2018-08-02 04:16] LABS: Absolute Monocytes 0.4 K/uL (0.1-1.3); Absolute Neutrophil 3.9 K/uL (1.8-8.0); Basophils % 0.2 % (0-1.3); Eosinophils % 3.1 % (0-4.4); Hematocrit 36.8 % (36.0-45.0); Lymphocytes % 39.3 % (15.3-44.8); MPV 8.3 fL (7.6-11.3); Monocytes % 5.7 % (3.3-12.3); RBC Red Blood Cell Count 4.02 M/uL (3.86-4.86)
[2018-08-02 04:36] LABS: BUN Blood Urea Nitrogen 15 mg/dL (7-18); Bicarbonate 28 mmol/L (21-32); Glucose Level 135 mg/dL (74-106); Magnesium 2.3 mg/dL (1.8-2.4); Potassium 3.5 mmol/L (3.5-5.1); Sodium Level 141 mmol/L (136-145)
--- NOTE | 2018-08-02 08:28 | RAD REPORT ---
EXAM DESCRIPTION: RAD - Chest Pa And Lat (2 Views) - 08/01/2018 9:21 pm CLINICAL HISTORY: pre surgical, groin abcess Chest pain. COMPARISON: Chest Single View dated 10/04/2017; Chest Pa And Lat (2 Views) dated 01/22/2016; CHEST PA AND LAT 2 VIEW dated 08/22/2014; CHEST PA AND LAT 2 VIEW dated 05/27/2013 FINDINGS: The lungs are emphysematous but clear. The heart is mildly enlarged in size. No displaced fractures. Hardware is present in the thoracic spine. IMPRESSION: Mild COPD.
[2018-08-02 08:59] LABS: Urine Appearance CLEAR; Urine Bilirubin NEGATIVE (NEG); Urine Blood NEGATIVE (NEG); Urine Color YELLOW; Urine Glucose NEGATIVE (NEG); Urine Protein NEGATIVE (NEG); Urine Urobilinogen 0.2 mg/dL (0.2-1.0)
[2018-08-02 09:01] LABS: Urine Microscopic Reflex NO UMIC
[2018-08-02] MEDS ORDERED: Ringers Lactate 1,000 ML IV ONE (10:21)
[2018-08-02] MEDS ORDERED: PROPOFOL 200 MG/20 ML VIAL IV ONE (10:33)
[2018-08-02] MEDS ORDERED: MIDAZOLAM HCL 2 MG/2 ML INJ ONE (10:33)
[2018-08-02] MEDS ORDERED: FENTANYL CITR 100 MCG/2 ML ONE (10:33)
[2018-08-02] MEDS ORDERED: LIDOCAINE 1% MPF 5 ML VIAL ONE (10:34)
[2018-08-02] MEDS ORDERED: BUPIVACAINE 0.5% PF 10 ML VIAL ONE (10:42)
[2018-08-02] MEDS ORDERED: NS 0.9% VIAL 10 ML ONE (11:02)
[2018-08-02] MEDS ORDERED: EPHEDRINE SULF 50 MG/10 ML SYR ONE (11:02)
--- NOTE | 2018-08-02 11:25 | P.OP ---
Preoperative diagnosis: Abscess and Cellulitis Left Groin Postoperative diagnosis: same, Likely Hidraadenitis Suppurtiva Primary procedure: Wide excision Left groin infected area 8x4 cm Anesthesia: General Estimated blood loss: min Specimen: pus and wound Findings: as above Complications: None Transferred to: Recovery Room Condition: Good
[2018-08-02] MEDS ORDERED: KETOROLAC 30 MG/ML INJ ONE (11:28)
[2018-08-02] MEDS ORDERED: ONDANSETRON 4 MG/2 ML VIAL ONE (11:28)
[2018-08-02] MEDS ORDERED: HYDROMORPHONE HCL 1 MG/ML INJ ONE (11:56)
--- NOTE | 2018-08-02 13:12 | PREOPCON ---
Date of Consultation: 08/02/2018 Reason For Consultation: Abscess left groin. History Of Present Illness: The patient is a 52-year-old female, who has had this abscess developed over the last week associated with increasing pain, redness, minimal discharge. No fever or chills. She has had a previous abscess in that region last year, which I took care of. Review of Systems: Otherwise unremarkable. Past Medical History: Significant for degenerative back disease secondary to scoliosis. Past Surgical History: Multiple back surgeries. Allergies: INCLUDE COMPAZINE, MORPHINE, DEMEROL. Social History: She does smoke, has been counseled. Denies drinking. Family History: Significant for coronary artery disease. Physical Examination: Vital Signs: Stable. She is afebrile. General: She is awake, alert, orient x3. Head and Neck: Cranial nerves 2 through 12 grossly within normal limits. No neck masses. No JVD. Throat clear. Neck is supple. Chest: Clear Heart: S1 and S2. Abdomen: Soft. Extremities: Neurovascularly intact. Neuro: Nonfocal. Left groin: In the inguinal crease there is approximately a 3 x 4 cm raised, erythematous, warm, flu ctuant, tender, with a minimal opening with pus oozing, abscess, surrounding erythema and warmth as w ell. Laboratory Data: White count is 7.5, INR is 1. Chemistry reviewed. Assessment: Left groin abscess with cellulitis. Recommendation: N.p.o., IV fluid, IV antibiotic. To the OR for incision, drainage, and debridement of that abscess. The patient understands risks, benefits, and alternatives and agrees to procedure. Please note, the patient states that she has a slightly ingrown toenail on the left great toe. We wi ll go ahead and debride that slightly as well while under anesthesia. /MODL Voice ID: [id number] Report ID: [id number]
[2018-08-02] MEDS ORDERED: TRAZODONE 50 MG TABLET PO PRN (17:51)
--- NOTE | 2018-08-02 17:56 | P.PN ---
Subjective Date of Service: 08/02/18 Chief Complaint: GROIN ABSCESS DRAINED. Subjective: Improving MARYAM WAS ADMITTED FROM OFFICE. SHE HAS HAD RECURRENT GROIN ABSCESSES. Review of Systems 10-point ROS is otherwise unremarkable General: Weakness, Malaise Integumentary: As per HPI Physical Examination - Vital Signs Temperature: 97.4 F Blood Pressure: 108/59 Pulse: 76 Respirations: 16 Pulse Ox (%): 95 - Physical Exam General: Alert, Moderate distress, Obese HEENT: Atraumatic, PERRLA, EOMI Neck: Supple, JVD not distended Respiratory: Clear to auscultation bilaterally, Normal air movement Cardiovascular: Regular rate/rhythm, Normal S1 S2 Gastrointestinal: Normal bowel sounds, No tenderness Musculoskeletal: No tenderness Integumentary: No rashes Neurological: Normal speech, Normal tone, Normal affect Lymphatics: No axilla or inguinal lymphadenopathy - Studies Laboratory Data (last 24 hrs) 08/02/18 03:49: Sodium 141, Potassium 3.5, BUN 15, Creatinine 0.67, Glucose 135 H, Magnesium 2.3 08/02/18 03:49: WBC 7.5 D, Hgb 12.3, Hct 36.8, Plt Count 191 08/01/18 21:55: Sodium 140, Potassium 3.9, BUN 15, Creatinine 0.83, Glucose 129 H, Phosphorus 3.5, Magnesium 2.3, Total Bilirubin 0.3, AST 12 L, ALT 20, Alkaline Phosphatase 94 08/01/18 21:55: PT 11.8, INR 1.00, APTT 35.3 08/01/18 21:55: WBC 9.3, Hgb 13.2, Hct 38.8, Plt Count 213 Medications List Reviewed: Yes Assessment And Plan - Current Problems (Diagnosis) (1) Groin abscess Current Visit: Yes Status: Acute Plan: DR. SHEETS DID LARGE I AND D SHE HAS HID SUPP. LIKE INFECTION. IV ABX FOR TODAY.
--- NOTE | 2018-08-02 22:57 | OP ---
Date of Procedure: 08/02/2018 Surgeon: Nicolas Linn MD Preoperative Diagnosis: Infected wound, left groin. Postoperative Diagnosis: Probable hidradenitis suppurativa. Procedure: Wide excision of left groin infected wound, 8 x 4 cm to subcutaneous tissue. Estimated Blood Loss: Minimal. Specimen: Infected tissue and pus. Finding: As above. Anesthesia: General. Complications: None. Disposition: The patient tolerated the procedure in stable condition and taken to Recovery in good g eneral condition. Description Of Procedure: The patient was brought to the OR and placed in supine position. General anesthesia was begun and then frog-leg position. Prepped and draped in usual sterile fashion. The p atient had an ingrown toenail which was debrided without difficulty with a bone cutter, and in the le ft groin Marcaine 0.5% was infiltrated locally. The patient had multiple sinuses associated with inf ected wound. Approximately 8 x 4 cm area of infected tissue was excised and sent to Pathology, down through the deep subcutaneous tissue. Sinuses were excised as well. Wound irrigated. Bleeding cont rolled cautery and then 2-0 Chromic was used to approximate the deep subcutaneous tissue, and then irizarry perior aspect of the wound left open for drainage purposes. Wet-to-dry normal saline dressing change was applied. The patient tolerated the procedure in stable condition, was taken to Recovery in good general condition. /MODL Voice ID: [id number] Report ID: [id number]
[2018-08-03] MEDS: HYDROMORPHONE HCL 1 MG/ML INJ IV PRN ×6 (00:25→17:41)
[2018-08-03] MEDS: VANCOMYCIN 2 GM in NA CHLORIDE 0.9% 500 ML IVPB SCH ×2 (01:43→15:05)
[2018-08-03] MEDS: ONDANSETRON 4 MG/2 ML VIAL IV PRN ×2 (01:43→15:05)
[2018-08-03] MEDS: NACHLORIDE 0.45% 1,000 ML IV SCH (05:56)
[2018-08-03 06:18] LABS: Absolute Lymphocytes (CBC) 1.8 K/uL (0.7-4.9); Absolute Monocytes 0.4 K/uL (0.1-1.3); Absolute Neutrophil 4.9 K/uL (1.8-8.0); Basophils % 0.2 % (0-1.3); Eosinophils % 2.5 % (0-4.4); Hematocrit 35.6 % (36.0-45.0); Lymphocytes % 25.2 % (15.3-44.8); MPV 8.4 fL (7.6-11.3); Monocytes % 5.1 % (3.3-12.3); RBC Red Blood Cell Count 3.84 M/uL (3.86-4.86)
[2018-08-03 06:31] LABS: BUN Blood Urea Nitrogen 11 mg/dL (7-18); Bicarbonate 31 mmol/L (21-32); Glucose Level 136 mg/dL (74-106); Magnesium 2.2 mg/dL (1.8-2.4); Potassium 4.4 mmol/L (3.5-5.1); Sodium Level 144 mmol/L (136-145)
[2018-08-03] MEDS ORDERED: POTASSIUM CL SA 10 MEQ TAB PO SCH (09:00)
[2018-08-03] MEDS ORDERED: FUROSEMIDE 20 MG TABLET PO SCH (09:00)
[2018-08-03] MEDS ORDERED: ARIPiprazole 5 MG TAB PO SCH ×2 (09:00→16:00)
[2018-08-03] MEDS ORDERED: DULOXETINE 20 MG CAP PO SCH (09:00)
[2018-08-03] MEDS ORDERED: VITAMIN D 1000 UNIT TAB PO SCH (09:00)
[2018-08-03 10:01] VITALS: O2SAT 95
--- NOTE | 2018-08-03 17:05 | P.DS ---
Admission Date: 08/01/18 Discharge Date: 08/03/18 Disposition: DC HOME/HOME HEALTH CARE Discharge Condition: FAIR Reason for Admission: GROIN ABSCESS DRAINED. 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 SUPURUTIVA. SHE IS STABLE SP I AND D. SHE IS SENT HOME ON BACTRID AMD ULTRAM. SHE HAS NOPLANS TO QUIT SMOKING AND IS ADDICTED TO DR. STYLES. Vital Signs/Physical Exam: Temp Pulse Resp BP Pulse Ox 97.6 F 68 18 131/65 93 08/03/18 12:00 08/03/18 12:00 08/03/18 12:00 08/03/18 12:00 08/03/18 12:00 General: Mild distress, Obese HEENT: Atraumatic, PERRLA, EOMI Neck: Supple, JVD not distended Respiratory: Clear to auscultation bilaterally, Normal air movement Cardiovascular: Regular rate/rhythm, Normal S1 S2 Gastrointestinal: Normal bowel sounds, No tenderness Musculoskeletal: No tenderness Integumentary: No rashes Neurological: Normal speech, Normal tone, Normal affect Lymphatics: No axilla or inguinal lymphadenopathy Laboratory Data at Discharge: WBC 7.3 K/uL (4.3-10.9) 08/03/18 05:51 Hgb 12.0 g/dL (12.0-15.0) 08/03/18 05:51 Hct 35.6 % (36.0-45.0) L 08/03/18 05:51 Plt Count 175 K/uL (152-406) 08/03/18 05:51 PT 11.8 SECONDS (9.5-12.5) 08/01/18 21:55 INR 1.00 08/01/18 21:55 APTT 35.3 SECONDS (24.3-36.9) 08/01/18 21:55 Sodium 144 mmol/L (136-145) 08/03/18 05:51 Potassium 4.4 mmol/L (3.5-5.1) 08/03/18 05:51 BUN 11 mg/dL (7-18) 08/03/18 05:51 Creatinine 0.61 mg/dL (0.55-1.3) 08/03/18 05:51 Glucose 136 mg/dL (74-106) H 08/03/18 05:51 Phosphorus 3.5 mg/dL (2.5-4.9) 08/01/18 21:55 Magnesium 2.2 mg/dL (1.8-2.4) 08/03/18 05:51 Total Bilirubin 0.3 mg/dL (0.2-1.0) 08/01/18 21:55 AST 12 U/L (15-37) L 08/01/18 21:55 ALT 20 U/L (12-78) 08/01/18 21:55 Alkaline Phosphatase 94 U/L (45-117) 08/01/18 21:55 Home Medications: Cholecalciferol (Vitamin D3) [Vitamin D 1000 Iu Tab] 1,000 unit PO DAILY Cyanocobalamin (Vitamin B-12) [Cyanocobalamin Injection] 1,000 mcg IJ EVERY 7TH DAY 10/04/17 ARIPiprazole [Abilify*] 10 mg PO DAILY 08/02/18 ARIPiprazole [Aripiprazole] 5 mg PO DAILY 08/02/18 Duloxetine [Cymbalta *] 20 mg PO DAILY 08/02/18 Furosemide 20 mg PO DAILY 08/02/18 Potassium Oral Tab [Klor-Con 10 mEq Tab*] 20 meq PO DAILY 08/02/18 Trazodone [Desyrel*] 100 mg PO BEDTIME PRN 08/02/18 Smz./Tmp. [Bactrim Ds 800 MG/160 MG] 1 tab PO BID #28 tab 08/03/18 Tramadol HCl [Ultram] 50 mg PO Q6H #40 tablet 08/03/18 New Medications: Smz./Tmp. [Bactrim Ds 800 MG/160 MG] 1 tab PO BID #28 tab Tramadol HCl [Ultram] 50 mg PO Q6H #40 tablet Patient Discharge Instructions: w to d ns daily Followup: Nicolas Linn MD [ACTIVE - CAN ADMIT] - 1-2 Weeks (f/u [facility] in my clinic)
[2018-08-03 17:15] VITALS: BP 127/61; TEMP 98.2
== END 2018-08-03 18:59 | disposition home health service (06) ==
LOC: 4TH 19:13
PROVIDERS: ADMIT Internal Medicine; ATTEND Internal Medicine
PROC: 0HBRXZZ Excision of Toe Nail, External Approach (ICD-10-PCS; 2018-08-02)
PROC: 0J9M0ZZ Drainage of Left Upper Leg Subcutaneous Tissue and Fascia, Open Approach (ICD-10-PCS; principal; 2018-08-02 10:45)
DX: L02.214 Cutaneous abscess of groin (principal); L03.314 Cellulitis of groin
CPT/HCPCS: 36415; 71046; 80048; 80076; 80202; 81003; 82607; 83735; 84100; 84443; 85025; 85610; 85730; 87070; 87205; 88304; 93005; G0378; J1170; J2250; J2405; J2704; J3010

== ENCOUNTER 2019-01-31 12:31 | Inpatient (IN) | payer OTHER ==
--- NOTE | 2019-01-31 16:36 | RAD REPORT ---
EXAM DESCRIPTION: RAD - Chest Pa And Lat (2 Views) - 01/31/2019 4:25 pm CLINICAL HISTORY: shortness of breath COMPARISON: July TECHNIQUE: PA and lateral views of the chest were obtained. FINDINGS: The lungs are no peripheral mass or consolidation. Baseline interstitial pattern is promin ent but not substantially different from comparison. Severity of baseline disease could potentially m ask earliest stages of an interstitial edema or infiltrate. Heart size is normal and central vascul ature is within normal limits. No pleural effusion or pneumothorax seen. No acute bony finding note d. No aortic abnormality. IMPRESSION: No acute cardiopulmonary process. Chronic interstitial pattern similar comparison.
[2019-01-31 16:59] VITALS: BMI 42.9
[2019-01-31] MEDS: NACHLORIDE 0.45% 1,000 ML IV SCH (17:14)
[2019-01-31] MEDS: ONDANSETRON 4 MG/2 ML VIAL IV PRN (17:21)
[2019-01-31 18:11] LABS: Bilirubin Direct 0.1 mg/dL (0-0.2); Bilirubin Total 0.2 mg/dL (0.2-1.0); Magnesium 2.2 mg/dL (1.8-2.4); Phosphorus 3.5 mg/dL (2.5-4.9); Potassium 3.8 mmol/L (3.5-5.1); Protein, Total 7.3 g/dL (6.4-8.2); Thyroid Stimulating Hormone 0.841 uIU/mL (0.360-3.740)
[2019-01-31 18:36] LABS: Absolute Lymphocytes (CBC) 2.4 K/uL (0.7-4.9); Basophils % 0.3 % (0-1.3); Hematocrit 38.5 % (36.0-45.0); Lymphocytes % 28.5 % (15.3-44.8); MPV 7.9 fL (7.6-11.3); RBC Red Blood Cell Count 4.16 M/uL (3.86-4.86)
[2019-01-31 18:47] LABS: Protime INR 1.03
[2019-01-31] MEDS ORDERED: ACETAMINOPHEN 325 MG TABLET PO PRN (19:23)
[2019-01-31] MEDS ORDERED: DIPHENHYDRAMINE 25 MG TAB/CAP PO PRN (19:24)
[2019-01-31] MEDS ORDERED: LOPERAMIDE HCL 2 MG CAPSULE PO PRN (19:26)
[2019-01-31] MEDS ORDERED: POLYETHYL GLY 3350 17 GM/DOSE PO PRN (19:30)
[2019-01-31] MEDS: VANCOMYCIN 2 GM in NA CHLORIDE 0.9% 500 ML IVPB SCH (20:00)
[2019-01-31] MEDS ORDERED: NA CHLORIDE 0.9% 250 ML ONE (20:22)
[2019-01-31] MEDS ORDERED: VANCOMYCIN 1 GM/VIAL ONE (20:26)
[2019-01-31] MEDS: HYDROMORPHONE HCL 1 MG/ML INJ IV PRN ×2 (20:37→23:53)
[2019-01-31] MEDS ORDERED: NA CHLORIDE 0.9% 500 ML ONE (20:47)
[2019-01-31] MEDS ORDERED: INFLUENZA VACCINE (for 3y+) 0.5 ML DOSE IMVAC ONE (21:00)
[2019-01-31] MEDS ORDERED: TRAMADOL HCL 100 MG PO PRN (21:25)
--- NOTE | 2019-01-31 22:44 | CON ---
Date of Consultation: 01/31/2019 Reason For Consultation: Left groin/perineal abscess. Brief History Of Present Illness: Patient is a 53-year-old female, who presents to the hospital with a left perineal/groin area of fluctuance and pain, tenderness and swelling. She has a history of hi dradenitis suppurativa and has had multiple incision and drainage she states in the double digit rang e for her hidradenitis disease. She presents with left groin/perineal swelling beginning on Monday. It got progressively worse and as such, she noted some drainage and the increased tenderness caused her to go see Dr. Lucero. Dr. Lucero evaluated the patient and recommended that she have admission to hospital for IV fluids and possible surgical intervention. I am consulted for the following reason. The patient states that she currently has tenderness in the area, but this is consistent with her m ultiple episodes of hidradenitis suppurativa in the past. 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 Past Surgical History: She states she has had multiple incision and drainages and debridement of mul tiple areas of hidradenitis in the groins, arm pits and various parts of her body. The left pubic ar ea has had previous scar tissue and previous drainage before as well. She has also had multiple back surgery. She states in the double digit range for back surgery. She cannot recall the details of a ll of the surgery she has had. Hysterectomy. Social History: She uses tobacco products approximately 2 packs per day. Denies alcohol or recreati onal drug use. Home Medications: Include Aleve, fluoxetine, KCl, Cymbalta, vitamin D, omeprazole, stool softeners, gabapentin, Tylenol No. 3. She has a pain pump, which I believe is a Dilaudid pain pump. Allergies: SHE STATES SHE IS ALLERGIC TO DEMEROL AND COMPAZINE. Review of Systems: A 10-point review of systems other than HPI, denies at the time of my examination. Physical Examination: Vital Signs: BMI of 42.9, blood pressure 127/61, pulse of 76, respiratory rate 20, temperature is 97 .6. General: She is awake, alert, and oriented. Psychiatric: She is appropriate and conversive. HEENT: She is otherwise normocephalic. Her sclerae are anicteric. Mucous members are moist. Oroph arynx clear. Neck: Supple. No JVD. Chest: Normal expansion and excursion. Cardiovascular: Regular rate and rhythm. Pulmonary: Clear to auscultation bilaterally. Abdomen: Soft, nontender, nondistended. Pelvis: Stable. Focused examination of perineal area finds a left groin abscess consistent with a d raining hidradenitis suppurativa type skin with draining abscess approximately 3 to 4 cm size in the perineal area. Extremities: No clubbing, cyanosis, or edema. Skin: Warm and dry. Laboratory Data: All labs are currently pending. Culture is currently pending and imaging currently pending. Assessment And Plan: This is a 53-year-old female, who comes in with history of hidradenitis suppura tiva and a left perineal/inguinal abscess. 1.IV fluid hydration. 2.Antibiotic coverage. 3.Medical management per Dr. Lucero. 4.I have explained the risks, benefits, and alternatives of incision and drainage and debridement of this large likely complex perineal wound, including but not limited to bleeding, infection, damage t o surrounding tissue, need for further operation and procedures. The patient agrees to proceed as flavia cated. GLYNN/CLIFTON Voice ID: [id number] Report ID: [id number]
[2019-01-31] MEDS: TRAZODONE 50 MG TABLET PO SCH (23:53)
[2019-02-01] MEDS: ONDANSETRON 4 MG/2 ML VIAL IV PRN ×2 (00:38→06:24)
[2019-02-01] MEDS: HYDROMORPHONE HCL 1 MG/ML INJ IV PRN ×5 (03:30→20:32)
[2019-02-01 06:11] LABS: Absolute Lymphocytes (CBC) 2.4 K/uL (0.7-4.9); Basophils % 0.2 % (0-1.3); Hematocrit 34.3 % (36.0-45.0); Lymphocytes % 42.2 % (15.3-44.8); MPV 8.4 fL (7.6-11.3); RBC Red Blood Cell Count 3.74 M/uL (3.86-4.86)
[2019-02-01 06:32] LABS: BUN Blood Urea Nitrogen 10 mg/dL (7-18); Bicarbonate 31 mmol/L (21-32); Glucose Level 126 mg/dL (74-106); Potassium 3.6 mmol/L (3.5-5.1); Sodium Level 143 mmol/L (136-145)
--- NOTE | 2019-02-01 07:27 | EKG ---
Test Date: 2019-01-31 Test Time: 17:04:36 Customs And Immigration Officer: ROOSEVELT MEASUREMENT RESULTS: Intervals: Rate: 68 CO: 194 QRSD: 82 QT: 408 QTc: 433 [place]: P: 52 CO: 194 QRS: 70 T: 42 INTERPRETIVE STATEMENTS: Normal sinus rhythm Normal ECG Compared to ECG 08/02/2018 00:52:41 No significant changes Electronically Signed On 02-01-19 07:26:[address]
[2019-02-01] MEDS ORDERED: KCL 20 MEQ/100 mL IVPB 20 MEQ/100 ML BAG IV SCH (08:00)
[2019-02-01] MEDS ORDERED: MIDAZOLAM HCL 2 MG/2 ML INJ ONE ×2 (08:26→11:05)
[2019-02-01] MEDS ORDERED: PROPOFOL 200 MG/20 ML VIAL IV ONE (08:26)
[2019-02-01] MEDS ORDERED: LIDOCAINE 2% MPF 5 ML VIAL ONE (08:26)
[2019-02-01] MEDS ORDERED: dexAMETHasone 10 MG/ML VIAL ONE (08:26)
[2019-02-01] MEDS ORDERED: FENTANYL CITR 100 MCG/2 ML ONE (08:26)
[2019-02-01] MEDS ORDERED: Ringers Lactate 1,000 ML IV ONE (08:35)
[2019-02-01] MEDS ORDERED: BUPIVACAINE 0.5% PF 10 ML VIAL ONE (08:56)
[2019-02-01] MEDS: VANCOMYCIN 2 GM in NA CHLORIDE 0.9% 500 ML IVPB SCH ×2 (08:58→20:32)
[2019-02-01] MEDS ORDERED: BUPIVACA 0.5%/EPI 0.0005%/PF 30 ML VIAL ONE (09:00)
[2019-02-01] MEDS ORDERED: DULOXETINE 20 MG CAP PO SCH (09:00)
[2019-02-01] MEDS ORDERED: GLYCOPYRROLATE 0.2 MG/ML SYR ONE (09:52)
[2019-02-01] MEDS ORDERED: EPHEDRINE SULF 50 MG/ML VIAL ONE (09:56)
--- NOTE | 2019-02-01 10:17 | P.OP ---
Preoperative diagnosis: LEFT groin hyrainitis suppuritiva Postoperative diagnosis: LEFT groin hyrainitis suppuritiva Primary procedure: Wide Excisio nof LEFT groin hyrainitis suppuritiva Anesthesia: GETA + Local Estimated blood loss: <2cc Specimen: Debridement Tissue and cultures Findings: hydrainitis suppuritiva Complications: None Transferred to: Recovery Room Condition: Good
[2019-02-01] MEDS: HYDROMORPHONE HCL 1 MG/ML INJ ONE ×6 (10:42→11:35)
[2019-02-01] MEDS: DIAZEPAM 5 MG TABLET PO PRN (12:03)
[2019-02-01] MEDS: DULOXETINE 30 MG CAP PO SCH ×2 (12:13→20:31)
[2019-02-01] MEDS: ENOXAPARIN 40 MG/0.4 ML SQ SCH (12:14)
[2019-02-01] MEDS ORDERED: POTASSIUM CL SA 10 MEQ TAB PO ONE (16:00)
[2019-02-01] MEDS: HYDROCODONE/APAP 7.5/325 MG TAB PO PRN ×2 (16:38→23:15)
--- NOTE | 2019-02-01 20:31 | OP ---
Date of Procedure: 02/01/2019 Surgeon: Nazario Major MD, Preoperative Diagnosis: Left groin hidradenitis suppurativa. Postoperative Diagnosis: Left groin hidradenitis suppurativa. Procedure Performed: Wide local excision of left groin hidradenitis suppurativa. Anesthesia: General endotracheal plus local with 0.5% Marcaine with epinephrine. Estimated Blood Loss: Less than 2 mL. Specimen: Debridement tissue and culture sent for both aerobic and anaerobic speciation. Findings: Hidradenitis suppurativa approximately 6 cm x 3 cm elliptical area in the left groin creas e area. Complications: None. Disposition: Transferred to recovery room in good condition. Procedure In Detail: After informed consent was obtained, the patient was brought to the operating r oom, prepped and draped in the usual sterile fashion. After adequate anesthesia was achieved, the ar ea of the left groin was marked with a marking pen for an elliptical incision over an area of drainin g hidradenitis suppurativa. She has had previous surgeries in this area. There was significant yumiko ration in this area. Cultures were sent after incision was made in the elliptical incision for appro ximately 6 cm x 4 cm area. Electrocautery was used to dissect down through subcutaneous tissue and t he subcutaneous fat. The murky fluid was then cultured for both aerobic and anaerobic speciation. I then took the ellipse of tissue out all the way down to good bleeding. Normal fatty tissues and sen t off the other specimen for examination. The hemostasis was easily achieved with electrocautery. T he area was copiously irrigated until completely clear. I then reapproximated the majority the skin with a 2-0 nylon suture in a vertical mattress type fashion and placed 1/2-inch packing deep into the wound and a wick through the central portion of the incision. A sterile dressing was then placed ov er top. Patient tolerated the procedure well without evidence of complication and transferred to the PACU in good condition. All counts were correct at the end of the case. GLYNN/CLIFTON Voice ID: [id number] Report ID: [id number]
[2019-02-01] MEDS: TRAZODONE 50 MG TABLET PO SCH (23:55)
[2019-02-02] MEDS: HYDROMORPHONE HCL 1 MG/ML INJ IV PRN ×7 (00:43→20:16)
[2019-02-02] MEDS: NACHLORIDE 0.45% 1,000 ML IV SCH (00:44)
--- NOTE | 2019-02-02 03:56 | PN ---
Subjective: Status post surgery for left groin abscess, day 0 today, tolerated well. She has a popeye re amount of pain still. Physical Examination: Vital Signs: Blood pressure 150/65, pulse is 67. HEENT: No JVD. No carotid bruits. Chest: Clear. Heart: Regular. Morbidly obese. Wanting to eat chocolate mousse today. Not happy that she is on diabetic diet. Laboratory Data: White count of 5800, hemoglobin 11, hematocrit 34. Chem-7 is normal. Assessment And Plan: 1.Left groin abscess status post incision and drainage. Culture pending. Continue vancomycin. Michael n management. 2.Diet change. Order cardiac diet. She has high blood pressure. She should at least do a cardiac diet at this point. She is a smoker, morbidly obese, has not followed the recommendations yet about quitting to smoke and losing weight. BREANNA/MODL Voice ID: [id number] Report ID: [id number]
[2019-02-02 06:08] LABS: Absolute Lymphocytes (CBC) 1.7 K/uL (0.7-4.9); Basophils % 0.2 % (0-1.3); Lymphocytes % 13.2 % (15.3-44.8); MPV 8.7 fL (7.6-11.3)
[2019-02-02 06:24] LABS: Potassium 4.3 mmol/L (3.5-5.1)
[2019-02-02 08:49] LABS: Blood Morphology Comment NOT SEEN (NOT SEEN); Platelet Estimate ADEQ
[2019-02-02] MEDS: VANCOMYCIN 2 GM in NA CHLORIDE 0.9% 500 ML IVPB SCH ×2 (09:29→20:17)
[2019-02-02] MEDS: DULOXETINE 30 MG CAP PO SCH ×2 (09:29→20:16)
[2019-02-02] MEDS: ENOXAPARIN 40 MG/0.4 ML SQ SCH (09:30)
[2019-02-02] MEDS: DIAZEPAM 5 MG TABLET PO PRN (11:11)
[2019-02-02] MEDS: ONDANSETRON 4 MG/2 ML VIAL IV PRN ×4 (11:11→23:07)
--- NOTE | 2019-02-02 15:02 | PN ---
Subjective: Feeling a little better. Denies any chest pain, nausea, vomiting. Still has a severe a mount of pain in left groin, status post large abscess removal. Physical Examination: Vital Signs: Blood pressure 163/71, pulse is 80. HEENT exam: No JVD. No carotid bruits. Chest: Clear. Heart: Regular. Abdomen: No guarding, no rebound, rigidity. Assessment And Plan: Abscess left groin, most likely methicillin-resistant Staphylococcus aureus. C ontinue vancomycin. Cultures pending. Her hygiene and obesity probably has created these recurrent infections. I have advised them how to deal with this in the past. BREANNA/CLIFTON Voice ID: [id number] Report ID: [id number]
[2019-02-02 15:21] LABS: Urine Appearance CLEAR; Urine Bilirubin NEGATIVE (NEG); Urine Blood NEGATIVE (NEG); Urine Color YELLOW; Urine Glucose NEGATIVE (NEG); Urine Protein NEGATIVE (NEG); Urine Specific Gravity 1.015 (1.005-1.030); Urine Urobilinogen 0.2 mg/dL (0.2-1.0); Urine pH 5.5 (5.0-7.0)
[2019-02-02 15:31] LABS: Urine Microscopic Reflex NO UMIC
[2019-02-02] MEDS: HYDROCODONE/APAP 7.5/325 MG TAB PO PRN (21:52)
[2019-02-02] MEDS: TRAZODONE 50 MG TABLET PO SCH (22:23)
[2019-02-03 00:11] VITALS: O2SAT 95
[2019-02-03] MEDS: HYDROMORPHONE HCL 1 MG/ML INJ IV PRN ×4 (01:57→15:46)
[2019-02-03 06:15] LABS: Potassium 4.2 mmol/L (3.5-5.1)
[2019-02-03 06:17] LABS: Absolute Lymphocytes (CBC) 2.8 K/uL (0.7-4.9); Basophils % 0.3 % (0-1.3); Hematocrit 35.4 % (36.0-45.0); Lymphocytes % 40.6 % (15.3-44.8); MPV 8.3 fL (7.6-11.3); RBC Red Blood Cell Count 3.79 M/uL (3.86-4.86)
[2019-02-03] MEDS: DULOXETINE 30 MG CAP PO SCH (07:59)
[2019-02-03] MEDS: ENOXAPARIN 40 MG/0.4 ML SQ SCH (07:59)
[2019-02-03] MEDS: VANCOMYCIN 2 GM in NA CHLORIDE 0.9% 500 ML IVPB SCH (08:00)
[2019-02-03] MEDS: HYDROCODONE/APAP 7.5/325 MG TAB PO PRN ×2 (09:56→15:08)
--- NOTE | 2019-02-03 10:10 | P.PN ---
Subjective Date of Service: 02/03/19 Subjective: Improving (Patient has some pain with dressing changes in LEFT groin ) Physical Examination - Vital Signs Temperature: 97.6 F Blood Pressure: 123/69 Pulse: 61 Respirations: 15 Pulse Ox (%): 91 - Physical Exam General: Alert, In no apparent distress, Cooperative Integumentary: Other (LEFT groin wound is clean and dry, no cellulitis) - Studies Laboratory Data (last 24 hrs) 02/03/19 05:42: Sodium 143, Potassium 4.2, BUN 11, Creatinine 0.75, Glucose 98, Magnesium 2.0 02/03/19 05:42: WBC 6.9 D, Hgb 11.8 L, Hct 35.4 L, Plt Count 177 Microbiology Data (last 24 hrs): 02/01/19 10:11 Wound - Abscess Gram Stain - Final 02/01/19 10:11 Wound - Left Groin Gram Stain - Final Assessment And Plan - Plan LEFT groin abscess - discharge home with home wound care - pain medication per her chronic pain specialist, usually give tylenol #3 for this type of issue - 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
[2019-02-03] MEDS: NACHLORIDE 0.45% 1,000 ML IV SCH (10:40)
--- NOTE | 2019-02-03 11:15 | P.DS ---
Admission Date: 02/03/19 Discharge Date: 02/03/19 Disposition: ROUTINE DISCHARGE Discharge Condition: GOOD Hospital Course: HIRA LEROY HAD LARGE L GROIN ABSCESS. WE KEPT HER ONE MORE DAY THAN USUAL SHE HAS LOT OF PAIN. SHE IS NOW SITTING UP AND READY FOR DC FROM DR. MANZO. HE WILL GIVE ALL ABX AND DC PAIN ORDERS. Vital Signs/Physical Exam: Temp Pulse Resp BP Pulse Ox 97.6 F 61 15 123/69 91 02/03/19 10:10 02/03/19 10:10 02/03/19 10:10 02/03/19 10:10 02/03/19 10:10 Laboratory Data at Discharge: WBC 6.9 K/uL (4.3-10.9) D 02/03/19 05:42 Hgb 11.8 g/dL (12.0-15.0) L 02/03/19 05:42 Hct 35.4 % (36.0-45.0) L 02/03/19 05:42 Plt Count 177 K/uL (152-406) 02/03/19 05:42 PT 12.1 SECONDS (9.5-12.5) 01/31/19 18:28 INR 1.03 01/31/19 18:28 APTT 34.3 SECONDS (24.3-36.9) 01/31/19 18:28 Sodium 143 mmol/L (136-145) 02/03/19 05:42 Potassium 4.2 mmol/L (3.5-5.1) 02/03/19 05:42 BUN 11 mg/dL (7-18) 02/03/19 05:42 Creatinine 0.75 mg/dL (0.55-1.3) 02/03/19 05:42 Glucose 98 mg/dL (74-106) 02/03/19 05:42 Phosphorus 3.5 mg/dL (2.5-4.9) 01/31/19 17:02 Magnesium 2.0 mg/dL (1.8-2.4) 02/03/19 05:42 Total Bilirubin 0.2 mg/dL (0.2-1.0) 01/31/19 17:02 AST 10 U/L (15-37) L 01/31/19 17:02 ALT 16 U/L (12-78) 01/31/19 17:02 Alkaline Phosphatase 96 U/L (45-117) 01/31/19 17:02 Home Medications: Cyanocobalamin (Vitamin B-12) [Cyanocobalamin Injection] 1,000 mcg IJ EVERY 7TH DAY 10/04/17 Duloxetine [Cymbalta *] 80 mg PO BID 08/02/18 Diazepam [Valium] 1 tab PO DAILY PRN 01/31/19 Mv-Mn/Iron/FA/Herbal Cmplx#190 [Vitamin D3 Complete Caplet] 1 tab PO DAILY 01/31 Tramadol HCl [Tramadol HCl ER] 100 mg PO DAILY PRN 01/31/19 Trazodone [Desyrel*] 1 tab PO BEDTIME 01/31/19 Patient Discharge Instructions: - go to [email or web address] to fill out patient packet. - call [phone] for follow up and suture removal. - daily dressing changes with 1/2" plain packing, irrigate prior to packing with saline , cover with sterile guaze Diet: Regular Activity: Ad carrie Followup: Nazario Major MD [ACTIVE - CAN ADMIT] -
[2019-02-03 15:23] VITALS: BP 130/75; TEMP 98.5
== END 2019-02-03 16:30 | disposition home or self-care (01) | DRG 571 ==
LOC: 2ND 12:41 → OBSVTOIN 02-03 08:39
PROVIDERS: ADMIT Internal Medicine; ATTEND Internal Medicine
PROC: 0JBC0ZZ Excision of Pelvic Region Subcutaneous Tissue and Fascia, Open Approach (ICD-10-PCS; principal; 2019-02-01 11:00)
DX: L02.214 Cutaneous abscess of groin (principal); Z68.41 Body mass index [BMI] 40.0-44.9, adult; L73.2 Hidradenitis suppurativa; M19.90 Unspecified osteoarthritis, unspecified site; J44.9 Chronic obstructive pulmonary disease, unspecified; G47.33 Obstructive sleep apnea (adult) (pediatric); F17.210 Nicotine dependence, cigarettes, uncomplicated; E66.9 Obesity, unspecified
CPT/HCPCS: 36415; 71046; 80048; 80076; 80202; 81003; 82306; 82607; 83735; 84100; 84443; 85025; 85610; 85730; 87040; 87070; 87075; 87205; 88304; 90471; 93005; G0378; G0379; J1100; J1170; J1650; J2250; J2405; J2704; J3010; J7030; J7040; J7120; Q2035

== ENCOUNTER 2019-02-26 22:26 | Inpatient (IN) | payer OTHER ==
[2019-02-26] MEDS ORDERED: MORPHINE 4 MG/ML SYR ONE (22:45)
[2019-02-26] MEDS ORDERED: ONDANSETRON 4 MG/2 ML VIAL ONE (22:46)
[2019-02-26 22:51] LABS: Absolute Lymphocytes (CBC) 3.1 K/uL (0.7-4.9); Basophils % 0.5 % (0-1.3); Hematocrit 38.8 % (36.0-45.0); Lymphocytes % 30.5 % (15.3-44.8); MPV 8.2 fL (7.6-11.3)
[2019-02-26 23:09] LABS: ALT/SGPT 16 U/L (12-78); AST/SGOT 7 U/L (15-37); Albumin 3.4 g/dL (3.4-5.0); Alkaline Phosphatase 95 U/L (45-117); BUN Blood Urea Nitrogen 9 mg/dL (7-18); Bicarbonate 24 mmol/L (21-32); Bilirubin Direct < 0.1 mg/dL (0-0.2); Bilirubin Total 0.3 mg/dL (0.2-1.0); Glucose Level 156 mg/dL (74-106); Lipase 103 U/L (73-393); Potassium 3.3 mmol/L (3.5-5.1); Protein, Total 7.6 g/dL (6.4-8.2); Sodium Level 140 mmol/L (136-145); Troponin (Emerg Dept Use Only) < 0.02 ng/mL (0.0-0.045)
[2019-02-26] MEDS ORDERED: NA CHLORIDE 0.9% 1,000 ML ONE (23:54)
[2019-02-27] MEDS ORDERED: METRONIDAZOLE 500mg IVPB 500 MG/100 ML BAG IV ONE (00:58)
[2019-02-27] MEDS ORDERED: MORPHINE 4 MG/ML SYR ONE (00:58)
[2019-02-27] MEDS ORDERED: CEFTRIAXONE/SWI 1gm 1 GM/10 ML SYR ONE (00:58)
--- NOTE | 2019-02-27 01:46 | ER ---
Nurse's Notes [facility] Name: Siri Rutherford Age: 53 yrs Sex: Female : 1965 Arrival Date: 02/26/2019 Time: 22:28 Bed 2 Private MD: Diagnosis: Upper abdominal pain, unspecified;Cholelithiasis;Early Small Bowel Obstruction Presentation: 02/26 22:29 Presenting complaint: Patient states: epigastric pain x 3 hrs that feels like aa1 "something is stuck in there." Reports pain /. Denies V/D. Reports nausea. Transition of care: patient was not received from another setting of care. Onset of symptoms was February 26, 2019. Risk Assessment: Do you want to hurt yourself or someone else? Patient reports no desire to harm self or others. Initial Sepsis Screen: Does the patient meet any 2 criteria? No. Patient's initial sepsis screen is negative. Does the patient have a suspected source of infection? Yes: Acute abdominal pain. Care prior to arrival: Medication(s) given: Tylenol, 1000 mg, IVP Reglan 10 mg IVP IV initiated. 20 GA, in the right antecubital area. 22:29 Method Of Arrival: EMS: [facility] aa1 22:29 Acuity: MARILU 3 aa1 ORDER BUILDER: 22:36 LMP N/A - Hysterectomy aa1 Historical: - Allergies: 22:36 Compazine; aa1 22:36 Demerol (Itching); aa1 - Home Meds: 22:36 Cymbalta Oral [Active]; Pain Pump Dilaudid [Active]; Trazodone Oral [Active]; aa1 - PMHx: 22:36 Chronic pain; Diverticulitis; Degenerative disc disease; lymphedema; aa1 - PSHx: 22:36 Hysterectomy; back surgery; aa1 - Immunization history:: Flu vaccine is up to date. - Social history:: Smoking status: Patient uses tobacco products, smokes one-half pack cigarettes per day. - Ebola Screening: : No symptoms or risks identified at this time. - Family history:: not pertinent. - Hospitalizations: : No recent hospitalization is reported. Screenin:30 Nutritional screening: No deficits noted. Tuberculosis screening: No symptoms or risk aa1 factors identified. Fall Risk IV access (20 points). 02/27 02:49 Abuse screen: Denies threats or abuse. Denies injuries from another. lp1 Assessment: 02/26 22:30 General: Appears in no apparent distress. uncomfortable, obese, Behavior is calm, aa1 cooperative, appropriate for age. Pain: Complains of pain in epigastric area Pain currently is 10 out of 10 on a pain scale. Quality of pain is described as pressure, gnawing, Pain began 3 hours ago. Is continuous. Neuro: Level of Consciousness is awake, alert, obeys commands, Oriented to person, place, time, situation, Moves all extremities. Speech is normal. Cardiovascular: Denies chest pain, diaphoresis, palpitations, shortness of breath, Heart tones S1 S2 present Capillary refill < 3 seconds Clubbing of nail beds is absent JVD is absent Patient's skin is warm and dry. Rhythm is regular. Respiratory: Airway is patent Respiratory effort is even, unlabored, Respiratory pattern is regular, symmetrical. GI: Abdomen is obese, Abd is soft X 4 quads Abdomen is tender to palpation in epigastric area Reports epigastric pain, nausea, Patient currently denies constipation, diarrhea, vomiting. : No signs and/or symptoms were reported regarding the genitourinary system. EENT: No signs and/or symptoms were reported regarding the EENT system. Derm: Skin is intact, is healthy with good turgor, Skin is pink, warm \\T\\ dry. Musculoskeletal: Circulation, motion, and sensation intact. Capillary refill < 3 seconds. 23:03 Reassessment: Patient appears in no apparent distress at this time. Pt's RA O2 sat aa1 decreased to low 80's while sleeping. Placed on nasal cannula at 2L and increased to 97%. 02/27 00:05 Reassessment: Patient appears in no apparent distress at this time. Patient and/or aa1 family updated on plan of care and expected duration. Pain level reassessed. Patient is alert, oriented x 3, equal unlabored respirations, skin warm/dry/pink. Pt awaiting CT results. 01:09 Reassessment: Patient appears in no apparent distress at this time. Patient and/or aa1 family updated on plan of care and expected duration. Pain level reassessed. Patient is alert, oriented x 3, equal unlabored respirations, skin warm/dry/pink. Pt to be admitted; awaiting admission from [facility] at this time. 02:10 Reassessment: Patient appears in no apparent distress at this time. Patient and/or aa1 family updated on plan of care and expected duration. Pain level reassessed. Patient is alert, oriented x 3, equal unlabored respirations, skin warm/dry/pink. Awaiting bed assignment. 02:48 Reassessment: Patient appears in no apparent distress at this time. Patient resting, lp1 eyes closed, respirations unlabored ; aware of pending admission. Vital Signs: 02/26 22:36 BP 140 / 68; Pulse 57; Resp 22; Temp 97.6; Pulse Ox 98% on R/A; Weight 119.75 kg; aa1 Height 5 ft. 6 in. (167.64 cm); Pain 10/10; 23:03 BP 140 / 76; Pulse 50; Resp 20; Pulse Ox 97% on 2 lpm NC; Pain 9/10; aa1 02/27 00:00 BP 146 / 80; Pulse 58; Resp 20; Temp 97.9; Pulse Ox 94% on 2 lpm NC; Pain 7/10; aa1 01:09 BP 157 / 88; Pulse 52; Resp 22; Pulse Ox 95% on 2 lpm NC; Pain 7/10; aa1 02:00 BP 163 / 82; Pulse 55; Resp 20; Pulse Ox 95% on R/A; Pain 6/10; aa1 02:45 BP 161 / 75; Pulse 53; Resp 20; Pulse Ox 96% on 2 lpm NC; lp1 03:45 BP 159 / 74; Pulse 55; Resp 18; Pulse Ox 96% on 2 lpm NC; lp1 02/26 22:36 Body Mass Index 42.61 (119.75 kg, 167.64 cm) aa1 ED Course: 02/26 22:28 Patient arrived in ED. aa1 22:29 Singh Parker MD is Attending Physician. rn 22:30 Patient has correct armband on for positive identification. Placed in gown. Bed in low aa1 position. Call light in reach. Pulse ox on. NIBP on. Warm blanket given. 22:30 Maintain EMS IV. Dressing intact. Good blood return noted. Site clean \\T\\ dry. Gauge \\T\\ aa 1 site: 20g RAC. 22:31 Radiology exam delayed due to lab results not completed at this time. (BUN/Creatinine). vm2 22:34 Triage completed. aa1 22:35 Initial lab(s) drawn, by ED staff, sent to lab. aa1 22:36 Arm band placed on right wrist. aa1 22:41 Cecile Montaño, LEXI is Primary Nurse. aa1 22:55 Radiology exam delayed due to lab results not completed at this time. (BUN/Creatinine). vm2 23:03 Oxygen administration via nasal cannula \\T\\ 2L/min. aa1 23:12 EKG done, by ED staff, reviewed by Singh Parker MD. aa1 23:28 US Abdomen Limited In Process Unspecified. EDMS 23:47 CT completed. Pt tolerated procedure poorly. Patient moved to CT via stretcher. Patient eh moved back from CT. 23:53 CT Abd/Pelvis - IV Contrast Only In Process Unspecified. EDMS 11 01:44 Mao Lucero MD is Hospitalizing Provider. rn 01:58 NGT: inserted 16 Fr. via left nare. verified placement of air over stomach, to jb4 intermittent suction. Returned gastric contents. 02:00 No provider procedures requiring assistance completed. Patient admitted, IV remains in aa1 place. 02:20 Report given to Jewels Brady RN. aa1 02:48 Jewels Brady, RN is Primary Nurse. lp1 Administered Medications: 02/26 01:00 Drug: morphine 4 mg Route: IVP; Site: right antecubital; aa1 02/27 02:00 Follow up: Response: No adverse reaction; Pain is decreased; RASS: Alert and Calm (0) aa1 02/26 01:01 Drug: Flagyl 500 mg Volume: 100 ml; Route: IVPB; Rate: 200 ml/hr; Infused Over: 30 aa1 mins; Site: right antecubital; 02/27 02:01 Follow up: IV Status: Completed infusion aa1 02/26 01:01 Drug: Rocephin 1 grams Route: IV; Rate: calculated rate; Site: right antecubital; aa1 22:48 Drug: Zofran 4 mg Route: IVP; Site: right antecubital; aa1 23:48 Follow up: Response: No adverse reaction; Nausea is decreased aa1 22:50 Drug: morphine 4 mg Route: IVP; Site: right antecubital; aa1 23:50 Follow up: Response: No adverse reaction; Pain is decreased aa1 23:55 Drug: NS 0.9% 1000 ml Route: IV; Rate: 1000 ml; Site: right antecubital; aa1 02/27 00:35 Follow up: IV Status: Completed infusion; IV Intake: 1000ml aa1 01:05 CANCELLED (Other Intervention Used): Rocephin - (cefTRIAXone) 1 grams IVPB once over 30 aa1 mins; (mix in 50 mL NS) Intake: 00:35 IV: 1000ml; Total: 1000ml. aa1 Output: 03:53 Gastric: 300ml (NGT); Total: 300ml. lp1 Outcome: 01:45 Decision to Hospitalize by Provider. rn 02:49 Condition: stable lp1 02:49 Instructed on the need for admit. 03:34 Admitted to Tele accompanied by nurse, via stretcher, room 412, with chart, Report lp1 called to LEXI Hui 03:54 Patient left the ED. lp1 Signatures: Dispatcher [employer] EDMS Cecile Montaño RN RN aa1 Joao Jones Roman, MD MD rn Pena, Laura, RN RN lp1 Jesús Beck RN RN 4 Radha Agosto [facility] Corrections: (The following items were deleted from the chart) 03:53 02:45 BP 161 / 75; Pulse 53bpm; Resp 20bpm; Pulse Ox 96% RA; lp1 lp1
--- NOTE | 2019-02-27 01:47 | EDPHYS ---
Physician Documentation [facility] Name: Siri Rutherford Age: 53 yrs Sex: Female : 1965 Arrival Date: 02/26/2019 Time: 22:28 Bed 2 Private MD: ED Physician Singh Parker HPI: 02/27 01:19 This 53 yrs old Female presents to ER via EMS with complaints of Epigastric rn Pain. 01:19 The patient presents with abdominal pain. Onset: The symptoms/episode began/occurred rn just prior to arrival. The symptoms do not radiate. Associated signs and symptoms: Pertinent positives: nausea and vomiting, Pertinent negatives: blood in stools, fever, shortness of breath. The symptoms are described as crampy, sharp. Modifying factors: The symptoms are alleviated by nothing, the symptoms are aggravated by movement, touching the area. Severity of pain: At its worst the pain was moderate in the emergency department the pain is unchanged. The patient has not experienced similar symptoms in the past. The patient has not recently seen a physician. REports sudden onset upper abd pain about 1 hour after eating soup, no hx of bowel obstruction in past. NO chest pain/sob. Had soft bowel movement earlier but no diarrhea. . GRILL CHEF: 02/26 22:36 LMP N/A - Hysterectomy aa1 Historical: - Allergies: 22:36 Compazine; aa1 22:36 Demerol (Itching); aa1 - Home Meds: 22:36 Cymbalta Oral [Active]; Pain Pump Dilaudid [Active]; Trazodone Oral [Active]; aa1 - PMHx: 22:36 Chronic pain; Diverticulitis; Degenerative disc disease; lymphedema; aa1 - PSHx: 22:36 Hysterectomy; back surgery; aa1 - Immunization history:: Flu vaccine is up to date. - Social history:: Smoking status: Patient uses tobacco products, smokes one-half pack cigarettes per day. - Ebola Screening: : No symptoms or risks identified at this time. - Family history:: not pertinent. - Hospitalizations: : No recent hospitalization is reported. ROS: 02/27 01:19 Constitutional: Negative for fever, chills, and weight loss, Eyes: Negative for injury, rn pain, redness, and discharge, Cardiovascular: Negative for chest pain, palpitations, and edema, Respiratory: Negative for shortness of breath, cough, wheezing, and pleuritic chest pain, Abdomen/GI: + abd pain and vomiting, no diarrhea or blood in stool MS/Extremity: Negative for injury and deformity, Skin: Negative for injury, rash, and discoloration, Neuro: Negative for headache, weakness, numbness, tingling, and seizure. Exam: 01:21 Constitutional: This is a well developed, well nourished patient who is awake, alert, rn moaning in pain Head/Face: Normocephalic, atraumatic. ENT: MMM Cardiovascular: Bradycardic, regular, no murmur Respiratory: No increased work of breathing, no retractions or nasal flaring. Abdomen/GI: soft, + mild epigastric tenderness, no rebound, neg spear MS/ Extremity: Pulses equal, no cyanosis. Neurovascular intact. Full, normal range of motion. Equal circumference. Neuro: Awake and alert, GCS 15, oriented to person, place, time, and situation. Cranial nerves II-XII grossly intact. Motor strength 5/5 in all extremities. Sensory grossly intact. Vital Signs: 02/26 22:36 BP 140 / 68; Pulse 57; Resp 22; Temp 97.6; Pulse Ox 98% on R/A; Weight 119.75 kg; aa1 Height 5 ft. 6 in. (167.64 cm); Pain 10/10; 23:03 BP 140 / 76; Pulse 50; Resp 20; Pulse Ox 97% on 2 lpm NC; Pain 9/10; aa1 02/27 00:00 BP 146 / 80; Pulse 58; Resp 20; Temp 97.9; Pulse Ox 94% on 2 lpm NC; Pain 7/10; aa1 01:09 BP 157 / 88; Pulse 52; Resp 22; Pulse Ox 95% on 2 lpm NC; Pain 7/10; aa1 02:00 BP 163 / 82; Pulse 55; Resp 20; Pulse Ox 95% on R/A; Pain 6/10; aa1 02:45 BP 161 / 75; Pulse 53; Resp 20; Pulse Ox 96% on 2 lpm NC; lp1 03:45 BP 159 / 74; Pulse 55; Resp 18; Pulse Ox 96% on 2 lpm NC; lp1 02/26 22:36 Body Mass Index 42.61 (119.75 kg, 167.64 cm) aa1 MDM: 02/26 22:29 Patient medically screened. rn 02/27 01:43 Differential diagnosis: bowel obstruction, cholecystitis, Cholelithiasis, gastritis. rn Data reviewed: vital signs, nurses notes, lab test result(s), radiologic studies, CT scan, and as a result, I will admit patient. Counseling: I had a detailed discussion with the patient and/or guardian regarding: the historical points, exam findings, and any diagnostic results supporting the discharge/admit diagnosis, lab results, radiology results, the need for further work-up and treatment in the hospital. Response to treatment: the patient's symptoms have mildly improved after treatment, and as a result, I will admit patient. Admission orders: after a detailed discussion of the patient's condition and case, the admit orders are written by me. ED course: Consulted with Dr. Rodriguez, will admit to Dr. Lucero for abdominal pain, ct show possible early SBO, + cholelithiasis without cholecystitis. . 02/26 22:30 Order name: Basic Metabolic Panel; Complete Time: 23:41 rn 02/26 22:30 Order name: CBC with Diff; Complete Time: 23:41 rn 02/26 22:30 Order name: Creatinine for Radiology; Complete Time: 23:41 rn 02/26 22:30 Order name: Hepatic Function; Complete Time: 23:41 rn 02/26 22:30 Order name: Lipase; Complete Time: 23:41 rn 02/26 22:30 Order name: Troponin (emerg Dept Use Only); Complete Time: 23:41 rn 02/26 22:30 Order name: CT Abd/Pelvis - IV Contrast Only rn 02/26 22:30 Order name: US Abdomen Limited rn 02/26 22:42 Order name: Lactate; Complete Time: 23:41 aa1 02/26 22:30 Order name: IV Saline Lock; Complete Time: 22:42 rn 02/26 22:30 Order name: Labs collected and sent; Complete Time: 22:42 rn 02/26 22:30 Order name: EKG; Complete Time: 22:31 rn 02/26 22:30 Order name: EKG - Nurse/Tech; Complete Time: 23:12 rn 02/27 00:54 Order name: NG Tube; Complete Time: 01:57 rn 02/27 02:56 Order name: CONS Physician Consult EDMS Administered Medications: 02/26 01:00 Drug: morphine 4 mg Route: IVP; Site: right antecubital; aa1 02/27 02:00 Follow up: Response: No adverse reaction; Pain is decreased; RASS: Alert and Calm (0) aa1 02/26 01:01 Drug: Flagyl 500 mg Volume: 100 ml; Route: IVPB; Rate: 200 ml/hr; Infused Over: 30 aa1 mins; Site: right antecubital; 02/27 02:01 Follow up: IV Status: Completed infusion aa1 02/26 01:01 Drug: Rocephin 1 grams Route: IV; Rate: calculated rate; Site: right antecubital; aa1 22:48 Drug: Zofran 4 mg Route: IVP; Site: right antecubital; aa1 23:48 Follow up: Response: No adverse reaction; Nausea is decreased aa1 22:50 Drug: morphine 4 mg Route: IVP; Site: right antecubital; aa1 23:50 Follow up: Response: No adverse reaction; Pain is decreased aa1 23:55 Drug: NS 0.9% 1000 ml Route: IV; Rate: 1000 ml; Site: right antecubital; aa1 02/27 00:35 Follow up: IV Status: Completed infusion; IV Intake: 1000ml aa1 01:05 CANCELLED (Other Intervention Used): Rocephin - (cefTRIAXone) 1 grams IVPB once over 30 aa1 mins; (mix in 50 mL NS) Disposition: 02/27/19 01:45 Hospitalization ordered by Mao Lucero for Inpatient Admission. Preliminary diagnosis are Upper abdominal pain, unspecified, Cholelithiasis, Early Small Bowel Obstruction. - Bed requested for Telemetry/MedSurg (observation). - Status is Inpatient Admission. lp1 - Condition is Stable. - Problem is new. - Symptoms have improved. UTI on Admission? No Signatures: Dispatcher [employer] EDMS Cecile Montaño RN RN aa1 Singh Parker MD MD rn Pena, Laura, RN RN lp1 Cherelle cA RN RN cg Corrections: (The following items were deleted from the chart) : 00:55 Rocephin - (cefTRIAXone) 1 grams IVPB once over 30 mins; (mix in 50 mL NS) aa1 ordered. rn 01:21 01:19 Constitutional: Negative for fever, chills, and weight loss, Eyes: Negative for rn injury, pain, redness, and discharge, rn 03:09 01:45 Hospitalization Ordered by Mao Lucero MD for Inpatient Admission. Preliminary cg diagnosis is Upper abdominal pain, unspecified; Cholelithiasis; Early Small Bowel Obstruction. Bed requested for Telemetry/MedSurg (observation). Status is Inpatient Admission. Condition is Stable. Problem is new. Symptoms have improved. UTI on Admission? No. rn 03:54 03:09 02/27/2019 01:45 Hospitalization Ordered by Mao Lucero MD for Inpatient lp1 Admission. Preliminary diagnosis is Upper abdominal pain, unspecified; Cholelithiasis; Early Small Bowel Obstruction. Bed requested for Telemetry/MedSurg (observation). Status is Inpatient Admission. Condition is Stable. Problem is new. Symptoms have improved. UTI on Admission? No. cg
[2019-02-27] MEDS: D5 0.45 NS 1,000 ML IV SCH ×3 (04:56→20:43)
--- NOTE | 2019-02-27 06:33 | EKG ---
Test Date: 2019-02-26 Test Time: 23:13:24 Director Of Product Management: NORI MEASUREMENT RESULTS: Intervals: Rate: 47 MI: 198 QRSD: 90 QT: 524 QTc: 463 [place]: P: 63 MI: 198 QRS: 45 T: 55 INTERPRETIVE STATEMENTS: Sinus bradycardia Otherwise normal ECG Compared to ECG 01/31/2019 17:04:36 Sinus rhythm no longer present Electronically Signed On 02-27-19 06:32:26 P[address]MAKER [address]
[2019-02-27] MEDS: ONDANSETRON 4 MG/2 ML VIAL IV PRN ×2 (07:39→14:50)
[2019-02-27 08:06] VITALS: BMI 42.6
[2019-02-27] MEDS: CEFTRIAXONE/SWI 1gm 1 GM/10 ML SYR IV SCH (08:18)
[2019-02-27] MEDS: METRONIDAZOLE 500mg IVPB 500 MG/100 ML BAG IV SCH ×2 (08:19→17:37)
[2019-02-27] MEDS: MORPHINE 4 MG/ML SYR IV PRN ×2 (08:26→17:37)
[2019-02-27] MEDS ORDERED: CEFTRIAXONE 1 GM/NS 50 ML 1 GM/50 ML BAG IV SCH (09:00)
[2019-02-27 09:30] LABS: Urine Appearance CLOUDY; Urine Bilirubin NEGATIVE (NEG); Urine Blood NEGATIVE (NEG); Urine Color YELLOW; Urine Glucose NEGATIVE (NEG); Urine Protein NEGATIVE (NEG); Urine Specific Gravity 1.025 (1.005-1.030); Urine pH 6.5 (5.0-7.0)
[2019-02-27 10:21] LABS: Urine Bacteria 20-50 /HPF (<20); Urine Culture Reflex Order REFLEXED; Urine RBC NONE SEEN /HPF (NONE SEEN)
--- NOTE | 2019-02-27 11:22 | RAD REPORT ---
EXAM DESCRIPTION: US - Abdomen Exam Limited - 02/26/2019 11:28 pm CLINICAL HISTORY: The patient is 53 years old and is Female; ABD PAIN TECHNIQUE: Real-time ultrasound of the right upper quadrant with image documentation. COMPARISON: No relevant prior studies available. FINDINGS: GALLBLADDER: Gallstones are present within the gallbladder. There is no gallbladder wall thickening or pericholecystic fluid. COMMON BILE DUCT: Unremarkable as visualized. No stones. No dilation. PANCREAS: Unremarkable as visualized. IMPRESSION: Cholelithiasis. Electronically signed by: Kareen Mckenzie MD 02/26/2019 11:50 PM EXCAVATING CONTRACTOR Due to temporary technical issues with the PACS/Fluency reporting system, reports are being signed by the in house radiologist as a courtesy to ensure prompt reporting. The interpreting radiologist is f ully responsible for the content of the report.
--- NOTE | 2019-02-27 11:43 | RAD REPORT ---
EXAM DESCRIPTION: CT - Abdomen Pelvis W Contrast - 02/27/2019 2:36 am CLINICAL HISTORY: ABD PAIN TECHNIQUE: Contiguous axial images obtained through the abdomen and pelvis following the uneventful administration of IV contrast. Coronal and sagittal reformatted images were provided. This exam was performed according to our departmental dose-optimization program, which includes autom ated exposure control, adjustment of the mA and/or kV according to patient size and/or use of iterati ve reconstruction technique. COMPARISON: 12/14/2018 FINDINGS: Lung bases: Clear Liver: The liver is enlarged. Gallbladder and biliary system: Unremarkable Pancreas: Unremarkable Spleen: The spleen is mildly enlarged. Adrenals: Unremarkable Kidneys: Normal renal cortical enhancement. No calculi. No hydronephrosis. Bowel: Mildly dilated fluid-filled small bowel loops within the central abdomen. Mild infiltrative ch anges within the adjacent mesentery. The remainder of the small bowel and majority of the large bowel is decompressed. Colonic diverticula without adjacent inflammatory change. Appendix: Normal caliber appendix. No findings to suggest acute appendicitis. Urinary bladder: Unremarkable Reproductive: There has been a hysterectomy. No adnexal cysts or masses are identified. Lymph nodes: No pathologically enlarged lymph nodes. Peritoneum: No focal fluid collection. No free air. Vessels: Mild atherosclerotic disease. No abdominal aortic aneurysm. Abdominal wall: Tiny fat-containing umbilical hernia. Right lower ventral abdominal wall pain pump. Bones: Thoracolumbar levoscoliosis, multilevel spondylosis, bilateral posterior fusion and posterior decompression. Interposition graft at L4-L5. Remote L3 compression deformity. IMPRESSION: 1. Findings which may be related to early/partial small bowel obstruction. 2. Other findings as above. Electronically signed by: Radha Gaming MD 02/27/2019 12:16 AM RESIDENTIAL COLLECTIONS Due to temporary technical issues with the PACS/Fluency reporting system, reports are being signed by the in house radiologist as a courtesy to ensure prompt reporting. The interpreting radiologist is f ully responsible for the content of the report.
[2019-02-27] MEDS: COLLAGENASE 30 GM OINTMENT TOP SCH (14:51)
--- NOTE | 2019-02-27 17:52 | CON ---
Date of Consultation: 02/27/2019 Brief History Of Present Illness: Patient is a 53-year-old female, known to me from previous incisio n and drainage of a left groin hidradenitis abscess, who was in her usual state of health. She has c ontinued to get wound care in the left lower quadrant when she developed epigastric and midline abdom inal pain associated with nausea, vomiting that beginning yesterday. She continued to have normal ning wel movements, which were solid in consistency and not abnormal for her with respect to regularity in any regard. However, because of the abdominal pain and significant nausea, vomiting, which was repe titive at that time, she came to the ER with the above-stated complaints. She had a low-grade fever, but was unable to discern what the actual temperature was. She just felt warm at that time, but had no other complaints. Since being admitted to the hospital, she has an NG tube placed and got signif icant symptomatic improvement. She continues to pass gas and has not had a bowel movement since the last one prior to the admission, but has significant improvement of abdominal pain as described. Her pain is dull, predominantly over the abdomen, kind of in the midline area in the supraumbilical area , but not at the epigastrium. There is no radiation to the right upper quadrant or any other areas t hat she can describe. She has had similar episodes before that she describes is diverticulitis, dietz francisco, there were lower and more isolated to the left lower quadrant, which is inconsistent with her sy mptoms on this occasion. Past Medical History: Significant for chronic pain, diverticulitis, degenerative disk disease, lymph edema. Past Surgical History: She has had a total abdominal hysterectomy and multiple back surgeries. She believes at least 1 was an anterior approach. She has a chronic pain pump implanted as well in the r ight lower quadrant. Allergies: TO COMPAZINE AND DEMEROL. Home Medications: Include Cymbalta, Dilaudid pain pump, trazodone. Social History: She is a half [id number] cigarette smoker. Denies other recreational drug use. Review of Systems: A 10-point review of systems other than HPI, denies. Physical Examination: Vital Signs: At the time of examination, her vital signs were a BMI of 42. Her blood pressure was 1 14/59, heart rate was 71, respiratory rate 18, temperature 98.0, SpO2 96% on room air. General: She is awake, alert, and oriented. Psychiatric: She is appropriate conversive. HEENT: She is normoce phalic. Sclerae icteric. Mucosa is moist oropharynx clear. Neck: Supple. No JVD. Chest: Normal expansion and excursion. Cardiovascular: Regular rate and rhythm. Pulmonary: Clear to auscultati on bilaterally. Abdomen: Soft with global mild tenderness to palpation. No rebound. No guarding. No focal peritonitis. Tenderness is most evident at the supraumbilical position, but it is minimal at its worst. Negative Quinteros sign. Negative psoas sign. No Rovsing's, Payne Greenberg or Nikhil signs . Extremities: She has a left groin wound, which is packed with quarter-inch iodoform packing and h as no signs of wound infection and the tissues granulating quite well. She has a pain pump evident i n the right lower quadrant. The extremities otherwise have minimal edema to the bilateral lower extr emities left greater than right, but not different from previous examinations. Upper extremities, no clubbing, cyanosis, or edema. Laboratory Data: Reveals a white blood cell count of 10.0, hemoglobin is 13.3, hematocrit of 38.8, p latelet count is 244, neutrophils are normal at 61%. Her sodium is 140, potassium 3.3, chloride 105, carbon dioxide 24, BUN 9, creatinine 0.6, glucose is 156. Lactic acid was 2.5 on admission, now 1.3 . Her total bilirubin was 0.3, direct bilirubin less than 0.1, AST 7, ALT 16, alkaline phosphatase 9 5, lipase is 103. Her troponin was less than 0.02. Her UA showed 10-20 white blood cells and 20-50 bacteria. She had imaging performed, which included an abdominal ultrasound, which was officially re ad as cholelithiasis, no gallbladder wall thickening or pericholecystic fluid. Common bile duct is u nremarkable. She additionally had a CT scan performed of the abdomen and pelvis which was officially read as findings which may be related to an early/partial small bowel obstruction. She has a tiny f at containing umbilical hernia, right lower ventral abdominal wall pain pump. She has significant ch anges to the spine, which are unrelated to our current process. Normal caliber appendix, colonic div erticula without inflammatory changes. Assessment And Plan: This is a 53-year-old female, who has signs of an early/partial small bowel obs truction. 1.Continue NG tube decompression. 2.Serial abdominal exams. 3.N.p.o. 4.We will attempt nonoperative management at this time. Continue medical treatment for the above-st ated issues. 5.Bill appoint. I have explained the risks, benefits, and alternatives of nonoperative management. At this time, she agrees to proceed as indicated. GLYNN/CLIFTON Voice ID: [id number] Report ID: [id number]
[2019-02-27] MEDS ORDERED: DIAZEPAM PO PRN (18:11)
--- NOTE | 2019-02-27 18:17 | P.HP ---
Certification for Inpatient Patient admitted to: Inpatient With expected LOS: >2 Midnights Practitioner: I am a practitioner with admitting privileges, knowledge of patient current condition, hospital course, and medical plan of care. Services: Services provided to patient in accordance with Admission requirements found in Title 42 Section 412.3 of the Code of Federal Regulations Patient History Date of Service: 02/27/19 Reason for admission: ABDOMEN PAIN, NAUSEA, VOMITING 2 DAYS History of Present Illness: MS. INIGUEZ HAS HAD MULTIPLE BACK SURGERIES FOR SEVERE SCOLIOSIS, ABDOMEN SURGERIES AND INGUINAL ABSCESS SURGERIES FOR HID.SUPPURATIVE. SHE COMES WITH ABOVE SYMPTOMS FOR TWO DAYS. HAD CT SCAN THAT SHOWED INFLAMMATION AND POSSIBLE SMALL INTESTINAL BLOCKAGE. SHE HAD NGT PLACED. Allergies meperidine [From Demerol] Allergy (Verified 10/04/17 17:02) Itching prochlorperazine [From Compazine] Allergy (Verified 10/04/17 17:02) Itching Home medications list reviewed: Yes Home Medications: Cyanocobalamin (Vitamin B-12) [Cyanocobalamin Injection] 1,000 mcg IJ EVERY 7TH DAY 10/04/17 Duloxetine [Cymbalta *] 80 mg PO BID 08/02/18 Diazepam [Valium] 1 tab PO DAILY PRN 01/31/19 Mv-Mn/Iron/FA/Herbal Cmplx#190 [Vitamin D3 Complete Caplet] 1 tab PO DAILY 01/31 Tramadol HCl [Tramadol HCl ER] 100 mg PO DAILY PRN 01/31/19 Trazodone [Desyrel*] 1 tab PO BEDTIME 01/31/19 - Past Medical/Surgical History Has patient received pneumonia vaccine in the past: No Diabetic: No -: Sleep Apnea -: Bladder problems -: pain pump -: constipation -: joint pain/stiffness -: chronic back pain -: 42 back surgeries -: Right Wrist -: Right Ankle -: Right Elbow -: Hysterectomy -: Deep Tendon Release on Right arm -: Carpel Tunnel Right hand -: Left Breast Tumor removal - Family History Mother -: GI disease Father -: Cancer Notes: prostate - Social History Smoking Status: Current every day smoker Alcohol use: No CD- Drugs: No Caffeine use: Yes Place of Residence: Home Review of Systems 10-point ROS is otherwise unremarkable General: Weakness, Malaise Gastrointestinal: Nausea, Vomiting, Abdominal Pain Other: NO PSYCH ISSUES. Physical Examination - Vital Signs Temperature: 98.6 F Blood Pressure: 120/59 Pulse: 67 Respirations: 18 Pulse Ox (%): 93 - Physical Exam General: Alert, Oriented x3, Moderate distress, Obese HEENT: Atraumatic, PERRLA, Mucous membr. moist/pink, EOMI, Sclerae nonicteric Neck: Supple, 2+ carotid pulse no bruit, No LAD, Without JVD or thyroid abnormality Respiratory: Clear to auscultation bilaterally, Normal air movement Cardiovascular: Regular rate/rhythm, Normal S1 S2 Gastrointestinal: Hyperactive, Distended Musculoskeletal: No tenderness Integumentary: No rashes Neurological: Normal gait, Normal speech, Normal strength at 5/5 x4 extr, Normal tone, Normal affect Lymphatics: No axilla or inguinal lymphadenopathy - Studies Laboratory Data (last 24 hrs) 02/26/19 22:20: Creatinine 0.69 02/26/19 22:20: WBC 10.3, Hgb 13.3, Hct 38.8, Plt Count 244 02/26/19 22:20: Sodium 140, Potassium 3.3 L, BUN 9, Creatinine 0.66, Glucose 156 H, Total Bilirubin 0.3, AST 7 L, ALT 16, Alkaline Phosphatase 95, Lipase 103 Assessment and Plan - Problems (Diagnosis) (1) Small bowel obstruction Current Visit: Yes Status: Acute Plan: NGT WITH LIS. DR BIANCHI CONSULTED. MAY NOT NEED SURGERY. SUPPORTIVE CARE. DAILY LAB. DVT PX. BEDSORE PX. - Advance Directives Does patient have a Living Will: No Does patient have a Durable POA for Healthcare: No
[2019-02-27] MEDS ORDERED: DIAZEPAM 5 MG TABLET PO PRN (18:31)
[2019-02-27] MEDS: DULOXETINE 20 MG CAP PO SCH (21:00)
[2019-02-27] MEDS: TRAZODONE 50 MG TABLET PO SCH (21:10)
[2019-02-27] MEDS: ACETAMINOPHEN 500 MG TAB PO PRN (21:11)
[2019-02-28] MEDS: METRONIDAZOLE 500mg IVPB 500 MG/100 ML BAG IV SCH ×3 (01:36→17:09)
[2019-02-28] MEDS: D5 0.45 NS 1,000 ML IV SCH ×4 (01:37→22:02)
[2019-02-28 04:36] LABS: Absolute Lymphocytes (CBC) 2.2 K/uL (0.7-4.9); Basophils % 0.2 % (0-1.3); Hematocrit 36.2 % (36.0-45.0); Lymphocytes % 26.8 % (15.3-44.8); MPV 8.2 fL (7.6-11.3); RBC Red Blood Cell Count 3.97 M/uL (3.86-4.86)
[2019-02-28 05:20] LABS: ALT/SGPT 13 U/L (12-78); AST/SGOT 8 U/L (15-37); Albumin 2.9 g/dL (3.4-5.0); Alkaline Phosphatase 82 U/L (45-117); BUN Blood Urea Nitrogen 9 mg/dL (7-18); Bicarbonate 38 mmol/L (21-32); Bilirubin Direct < 0.1 mg/dL (0-0.2); Bilirubin Total 0.2 mg/dL (0.2-1.0); Glucose Level 119 mg/dL (74-106); Lipase 58 U/L (73-393); Potassium 4.2 mmol/L (3.5-5.1); Protein, Total 6.6 g/dL (6.4-8.2); Sodium Level 141 mmol/L (136-145)
--- NOTE | 2019-02-28 07:49 | P.PN ---
Subjective Date of Service: 02/28/19 Chief Complaint: ABDOMEN PAIN, NAUSEA, VOMITING 2 DAYS Subjective: Improving (Patient passing gas, has headach and sinusitis, pain improved) Physical Examination - Vital Signs Temperature: 96.8 F Blood Pressure: 131/73 Pulse: 60 Respirations: 18 Pulse Ox (%): 94 - Physical Exam General: Alert, In no apparent distress, Cooperative HEENT: Mucous membr. moist/pink, Other (NG tube in place, reddish) Gastrointestinal: Soft and benign, Non-distended, No ascites, No tenderness, No rebound, No guarding, Other (Pain pump palpable in RLQ) Integumentary: Other (LEFT groin wound is clean and packed well) Assessment And Plan - Current Problems (Diagnosis) (1) Small bowel obstruction Current Visit: Yes Status: Acute Plan: - Clamp NG tube for 6 hours, if no nausea, emesis, bloating, increased abdominal pain occur, check residual, if less than 500cc DC ng tube and start clear liquids - serial exams - ambulate with assist - continue medical management per Dr. Lucero
[2019-02-28] MEDS: HYDROMORPHONE HCL 1 MG/ML INJ IV PRN (08:28)
[2019-02-28] MEDS: CEFTRIAXONE/SWI 1gm 1 GM/10 ML SYR IV SCH (08:28)
[2019-02-28] MEDS: COLLAGENASE 30 GM OINTMENT TOP SCH (08:36)
[2019-02-28] MEDS: DULOXETINE 20 MG CAP PO SCH ×3 (09:00→22:01)
[2019-02-28] MEDS: ONDANSETRON 4 MG/2 ML VIAL IV PRN (18:48)
[2019-02-28] MEDS: TRAZODONE 50 MG TABLET PO SCH (22:01)
--- NOTE | 2019-02-28 23:33 | PN ---
Subjective: Ms. Rutherford is doing little better. Denies chest pain, nausea, vomiting. She has severe headache from her NG tube in the nose and usually does not have headache she says. Objective: Chest: Clear. Heart: Regular. General: Morbidly obese. Abdomen: No guarding. No rebound. There is decrease of motility in the abdomen. Assessment And Plan: Gastroenteritis. Continue management. Possible enteric blockage. NG tube wit h suction is continued. She has headache, which will be better when the tube comes out in a day or 2 . BREANNA/CLIFTON Voice ID: [id number] Report ID: [id number]
[2019-03-01] MEDS: METRONIDAZOLE 500mg IVPB 500 MG/100 ML BAG IV SCH ×3 (00:05→16:19)
[2019-03-01] MEDS: ACETAMINOPHEN 500 MG TAB PO PRN (02:50)
[2019-03-01] MEDS: D5 0.45 NS 1,000 ML IV SCH ×3 (04:43→19:57)
[2019-03-01] MEDS: COLLAGENASE 30 GM OINTMENT TOP SCH (09:00)
[2019-03-01] MEDS: DULOXETINE 20 MG CAP PO SCH ×3 (09:17→19:58)
[2019-03-01] MEDS: CEFTRIAXONE/SWI 1gm 1 GM/10 ML SYR IV SCH (09:17)
[2019-03-01] MEDS: ONDANSETRON 4 MG/2 ML VIAL IV PRN (10:57)
[2019-03-01] MEDS: HYDROMORPHONE HCL 1 MG/ML INJ IV PRN (16:18)
--- NOTE | 2019-03-01 19:55 | PN ---
Subjective: Ms. Rutherford is feeling lot better. Headache has improved. Denies any chest pain, nausea , vomiting. She had a bowel movement yesterday. Physical Examination: General: Obese lady. Vital Signs: Blood pressure 130/61, pulse of 61. HEENT: No JVD. No carotid b ruits. Abdomen: Soft. No guarding. No rebound. No rigidity. Assessment And Plan: 1.Partial bowel obstruction. Continue full liquid diet. Possible discharge tomorrow. 2.History of multiple other problems, scoliosis, multiple surgeries, chronic arthritis, recurrent hy dradenitis suppurativa. Prognosis overall guarded. BREANNA/MODL Voice ID: [id number] Report ID: [id number]
[2019-03-01] MEDS: TRAZODONE 50 MG TABLET PO SCH (19:57)
[2019-03-01 20:59] VITALS: O2SAT 92
[2019-03-02] MEDS: METRONIDAZOLE 500mg IVPB 500 MG/100 ML BAG IV SCH ×2 (00:13→10:13)
[2019-03-02] MEDS: D5 0.45 NS 1,000 ML IV SCH (04:45)
[2019-03-02 08:19] LABS: MPV 7.9 fL (7.6-11.3)
[2019-03-02] MEDS: ONDANSETRON 4 MG/2 ML VIAL IV PRN ×2 (08:49→18:21)
[2019-03-02] MEDS: CEFTRIAXONE/SWI 1gm 1 GM/10 ML SYR IV SCH (08:51)
[2019-03-02] MEDS: DULOXETINE 20 MG CAP PO SCH (08:54)
[2019-03-02 08:55] LABS: Platelet Estimate ADEQ
[2019-03-02] MEDS ORDERED: ENOXAPARIN 40 MG/0.4 ML SQ SCH (09:00)
--- NOTE | 2019-03-02 09:21 | P.PN ---
Subjective Date of Service: 03/02/19 Chief Complaint: ABDOMEN PAIN, NAUSEA, VOMITING 2 DAYS Subjective: Improving Physical Examination - Vital Signs Temperature: 97.1 F Blood Pressure: 153/71 Pulse: 53 Respirations: 14 Pulse Ox (%): 95 - Physical Exam General: Alert, In no apparent distress, Cooperative Gastrointestinal: Soft and benign, Non-distended, No ascites, No tenderness, No masses, No rebound, No guarding Integumentary: Other (LEFT groin wound is granulating well, no infection, packed with iodoform packing) Assessment And Plan - Current Problems (Diagnosis) (1) Small bowel obstruction Current Visit: Yes Status: Acute Plan: - tolerating soft diet well, ok to DC today from surgical standpoint - follow up with me in clinic next week for ongoing wound care - serial exams - ambulate with assist - continue medical management per Dr. Lucero
[2019-03-02] MEDS: HYDROMORPHONE HCL 1 MG/ML INJ IV PRN ×2 (10:02→18:23)
[2019-03-02] MEDS ORDERED: FLEET ENEMA ADULT PR ONE (12:00)
[2019-03-02 17:12] VITALS: BP 144/71; TEMP 97.2
--- NOTE | 2019-03-02 22:45 | P.DS ---
Admission Date: 02/27/19 Discharge Date: 03/02/19 Disposition: ROUTINE DISCHARGE Discharge Condition: FAIR Reason for Admission: ABDOMEN PAIN, NAUSEA, VOMITING 2 DAYS - Problems (1) Small bowel obstruction Status: Acute Brief History of Present Illness: MS. INIGUEZ HAS HAD MULTIPLE BACK SURGERIES FOR SEVERE SCOLIOSIS, ABDOMEN SURGERIES AND INGUINAL ABSCESS SURGERIES FOR HID.SUPPURATIVE. SHE COMES WITH ABOVE SYMPTOMS FOR TWO DAYS. HAD CT SCAN THAT SHOWED INFLAMMATION AND POSSIBLE SMALL INTESTINAL BLOCKAGE. SHE HAD NGT PLACED. Hospital Course: ONIEL IS DOING GOOD. SHE HAS HAD BM TWICE AND VOMITING HAS STOPPED. SHE IS DISCHARGED IN STABLE CONDITION. HER BOWEL OBSTRUCTION HAS RESOLVED. Vital Signs/Physical Exam: Temp Pulse Resp BP Pulse Ox 97.2 F 68 16 144/71 H 94 03/02/19 16:00 03/02/19 16:00 03/02/19 16:00 03/02/19 16:00 03/02/19 16:00 Laboratory Data at Discharge: WBC 8.4 K/uL (4.3-10.9) D 02/28/19 03:56 Hgb 12.4 g/dL (12.0-15.0) 02/28/19 03:56 Hct 36.2 % (36.0-45.0) 02/28/19 03:56 Plt Count 161 K/uL (152-406) 03/02/19 07:55 Sodium 141 mmol/L (136-145) 02/28/19 03:56 Potassium 4.2 mmol/L (3.5-5.1) 02/28/19 03:56 BUN 9 mg/dL (7-18) 02/28/19 03:56 Creatinine 0.70 mg/dL (0.55-1.3) 02/28/19 03:56 Glucose 119 mg/dL (74-106) H 02/28/19 03:56 Total Bilirubin 0.2 mg/dL (0.2-1.0) 02/28/19 03:56 AST 8 U/L (15-37) L 02/28/19 03:56 ALT 13 U/L (12-78) 02/28/19 03:56 Alkaline Phosphatase 82 U/L (45-117) 02/28/19 03:56 Lipase 58 U/L (73-393) L 02/28/19 03:56 Home Medications: Cyanocobalamin (Vitamin B-12) [Cyanocobalamin Injection] 1,000 mcg IJ EVERY 7TH DAY 10/04/17 Duloxetine [Cymbalta *] 80 mg PO BID 08/02/18 Diazepam [Valium] 1 tab PO DAILY PRN 01/31/19 Mv-Mn/Iron/FA/Herbal Cmplx#190 [Vitamin D3 Complete Caplet] 1 tab PO DAILY 01/31 Tramadol HCl [Tramadol HCl ER] 100 mg PO DAILY PRN 01/31/19 Trazodone [Desyrel*] 1 tab PO BEDTIME 01/31/19 Ondansetron HCl [Zofran] 4 mg PO TID PRN #30 tablet 03/02/19 New Medications: Ondansetron HCl [Zofran] 4 mg PO TID PRN #30 tablet PRN Reason: Nausea / Vomiting Followup: Mao Lucero MD [ACTIVE - CAN ADMIT] - 1-2 Weeks (Call to schedule an appointment) Nazario Major MD [ACTIVE - CAN ADMIT] - 1 Week (surgeon- call to schedule an appointment )
--- OUTSIDE RECORDS SUMMARY | 2019-03-04 00:13 | XMS REPORT ---
:1965 [facility] Address [address] [place] [address] Dr. Conley [address] [place] [address] Care Team Providers Name Role Phone Unavailable Unavailable Unavailable Problems This patient has no known problems. Allergies, Adverse Reactions, Alerts This patient has no known allergies or adverse reactions. Medications This patient has no known medications.
== END 2019-03-02 18:50 | disposition home or self-care (01) | DRG 389 ==
LOC: ER 22:26 → ERHOLD 02-27 03:01 → 4TH 02-27 03:37
PROVIDERS: ADMIT Internal Medicine; ATTEND Internal Medicine
DX: K56.609 Unspecified intestinal obstruction, unspecified as to partial versus complete obstruction (principal); Z68.41 Body mass index [BMI] 40.0-44.9, adult; M41.9 Scoliosis, unspecified; M19.90 Unspecified osteoarthritis, unspecified site; L73.2 Hidradenitis suppurativa; R51 Headache; E66.01 Morbid (severe) obesity due to excess calories; K52.9 Noninfective gastroenteritis and colitis, unspecified; F17.210 Nicotine dependence, cigarettes, uncomplicated
CPT/HCPCS: 36415; 74177; 76705; 80048; 80076; 81001; 83605; 83690; 84484; 85025; 85049; 87086; 87088; 93005; 96365; 96366; 96375; 99285; J0696; J1170; J2405; J3590; J7030; J7799; Q9967

== ENCOUNTER 2019-04-05 07:40 | Day surgery (SDC) | payer OTHER ==
--- OUTSIDE RECORDS SUMMARY | 2019-04-05 07:44 | XMS REPORT ---
:1965 [facility] Address [address] [place] [address] Dr. Conley [address] [place] [id number] Care Team Providers Name Role Phone Unavailable Unavailable Unavailable Problems This patient has no known problems. Allergies, Adverse Reactions, Alerts This patient has no known allergies or adverse reactions. Medications This patient has no known medications.
[2019-04-05] MEDS ORDERED: LIDOCAINE 1% MPF 5 ML VIAL ONE (07:47)
[2019-04-05] MEDS ORDERED: propofoL 200 MG/20 ML VIAL IV ONE ×2 (07:47→09:19)
[2019-04-05] MEDS ORDERED: Ringers Lactate 0 ML IV ONE (08:52)
--- NOTE | 2019-04-05 09:17 | ENDO RPT ---
[address], [address] COLONOSCOPY PROCEDURE REPORT EXAM DATE: 04/05/2019 PATIENT NAME: Siri Rutherford MR #: [id number] BIRTHDATE: 1965 ATTENDING: Nazario Major DR STATUS: outpatient SENIOR DATA DEVELOPER: Pramod Bledsoe and Dionne Lopez RN INDICATIONS: The patient is a 53 yr old Female here for a colonoscopy due to colon cancer screening PROCEDURE PERFORMED: Colonoscopy with biopsy - cold polypectomy MEDICATIONS: Per Anesthesia. ESTIMATED BLOOD LOSS: None CONSENT: The patient understands the risks and benefits of the procedure and understands that these risks include, but are not limited to: sedation, allergic reaction, infection, perforation and/or bleeding. Alternative means of evaluation and treatment include, among others: physical exam, x-rays, and/or surgical intervention. The patient elects to proceed with this endoscopic procedure. DESCRIPTION OF PROCEDURE: During intra-op preparation period all mechanical medical equipment was checked for proper function. Hand hygiene and appropriate measures for infection prevention was taken. Procedure, possible complications, alternatives including, but not limited to possibility of bleeding, perforation, tear, infection, sepsis, need for surgery, need for blood transfusion, were explained to the patient. After the risks, benefits and alternatives of the procedure were thoroughly explained, Informed consent was verified, confirmed and timeout was successfully executed by the treatment team. The patient was placed in the left lateral position. A digital rectal exam was performed and revealed internal hemorrhoids and A digital rectal exam was performed and revealed external hemorrhoids. After appropriate level of anesthesia, the scope was passed. The EC-[id number] ([id number]) and [id number] ([id number]) endoscope was introduced through the anus and advanced to the cecum, which was identified by both the appendix and ileocecal valve. The quality of the prep was fair. The instrument was then slowly withdrawn as the colon was fully examined. Scope withdrawal time was 12 minutes. COLON FINDINGS: Moderate sized internal and external hemorrhoids were found. Mild diverticulosis was noted in the sigmoid colon. No bleeding was noted from the diverticulosis. A few small smooth flat polyps were found in the sigmoid colon. A polypectomy was performed with cold forceps. The resection was complete, the polyp tissue was completely retrieved and sent to histology. A yellowish and subepithelial medium subepithelial lesion was located in the right colon. The area of the submusosal lesion was injected with 2 cc of ink. A biopsy was performed using cold forceps. Retroflexed views revealed no abnormalities. The scope was then completely withdrawn from the patient and the procedure terminated. ADVERSE EVENTS: There were no complications. IMPRESSIONS: 1. Moderate sized internal and external hemorrhoids 2. Mild diverticulosis was noted in the sigmoid colon 3. Few small flat polyps were found in the sigmoid colon; polypectomy was performed with cold forceps 4. A medium subepithelial lesion was located in the right colon; biopsy was performed using cold forceps RECOMMENDATIONS: 1. avoid NSAIDS for 2 weeks 2. await biopsy results 3. fiber rich diet 4. Monitor for any evidence of rectal bleeding. 5. increase dietary water 6. hemorrhoidal hygiene 7. yearly hemoccult starting in 4 years RECALL: Return in 2 week(s) for Colonoscopy, pending biopsy results. Nazario Major DR eSigned: Nazario Major DR 04/05/2019 9:17 AM cc: CPT CODES: ICD9 CODES: PATIENT NAME: Siri Rutherford MR#: [id number]
[2019-04-05 09:56] VITALS: TEMP 97.9
[2019-04-05 09:59] VITALS: BP 124/80; O2SAT 96
== END 2019-04-05 10:12 | disposition home or self-care (01) ==
LOC: OR 07:40
PROVIDERS: ATTEND Surgery
PROC: 0DBN8ZX Excision of Sigmoid Colon, Via Natural or Artificial Opening Endoscopic, Diagnostic (ICD-10-PCS; 2019-04-05)
PROC: 0DBF8ZX Excision of Right Large Intestine, Via Natural or Artificial Opening Endoscopic, Diagnostic (ICD-10-PCS; principal; 2019-04-05 08:30)
DX: Z12.11 Encounter for screening for malignant neoplasm of colon (principal); K63.5 Polyp of colon; K57.90 Diverticulosis of intestine, part unspecified, without perforation or abscess without bleeding; K63.89 Other specified diseases of intestine; K64.8 Other hemorrhoids; K64.4 Residual hemorrhoidal skin tags; G47.33 Obstructive sleep apnea (adult) (pediatric); M19.90 Unspecified osteoarthritis, unspecified site; F41.9 Anxiety disorder, unspecified; F32.9 Major depressive disorder, single episode, unspecified; Z72.0 Tobacco use; Z88.6 Allergy status to analgesic agent; Z88.8 Allergy status to other drugs, medicaments and biological substances
CPT/HCPCS: 88305; 45380; J2704 ×2; J7120

== ENCOUNTER 2019-05-24 08:03 | Day surgery (SDC) | payer OTHER ==
--- OUTSIDE RECORDS SUMMARY | 2019-05-24 08:05 | XMS REPORT ---
:1965 [facility] Address [address] [place] [address] Dr. Conley [address] [place] [address] Care Team Providers Name Role Phone Unavailable Unavailable Unavailable Problems This patient has no known problems. Allergies, Adverse Reactions, Alerts This patient has no known allergies or adverse reactions. Medications This patient has no known medications.
[2019-05-24] MEDS ORDERED: CEFAZOLIN/SWI 1gm 1 GM/10 ML SYR ONE (08:19)
[2019-05-24] MEDS ORDERED: Ringers Lactate 1,000 ML IV ONE ×2 (08:19→10:00)
[2019-05-24] MEDS ORDERED: FENTANYL CITR 100 MCG/2 ML ONE ×2 (08:54→09:16)
[2019-05-24] MEDS ORDERED: propofoL 200 MG/20 ML VIAL IV ONE ×2 (08:54→09:16)
[2019-05-24] MEDS ORDERED: BUPIVACA 0.5%/EPI 0.0005%/PF 10 ML VIAL ONE (08:54)
[2019-05-24] MEDS ORDERED: MIDAZOLAM HCL 2 MG/2 ML INJ ONE ×3 (08:54→10:21)
[2019-05-24] MEDS ORDERED: LIDOCAINE 1% MPF 5 ML VIAL ONE ×2 (08:54→09:16)
[2019-05-24] MEDS ORDERED: NS 0.9% VIAL 10 ML ONE (09:40)
[2019-05-24] MEDS ORDERED: KETOROLAC 30 MG/ML INJ ONE (09:45)
--- NOTE | 2019-05-24 09:47 | P.OP ---
Preoperative diagnosis: RIGHT Ingiuinal Hidainitis Postoperative diagnosis: RIGHT Ingiuinal Hidainitis Primary procedure: Excisional Debridement of RIGHT Ingiuinal Hidainitis Secondary procedure: Application of Amniotic Tissue Graft Anesthesia: MAC + Local Estimated blood loss: <2cc Specimen: Excised Tissue Findings: RIGHT Ingiuinal Hidainitis Complications: None Implants: Amniofill Transferred to: Recovery Room Condition: Good
[2019-05-24] MEDS ORDERED: ONDANSETRON 4 MG/2 ML VIAL ONE (09:48)
[2019-05-24] MEDS: HYDROMORPHONE HCL 1 MG/ML INJ ONE ×4 (10:03→10:19)
[2019-05-24] MEDS ORDERED: HYDROMORPHONE HCL 1 MG/ML INJ ONE (10:38)
[2019-05-24 10:39] VITALS: O2SAT 97
[2019-05-24] MEDS ORDERED: HYDROCODONE/APAP 7.5/325 MG TAB ONE (11:21)
[2019-05-24 12:44] VITALS: BP 121/61; TEMP 97.8
--- NOTE | 2019-05-24 19:38 | OP ---
Date of Procedure: 05/24/2019 Surgeon: Nazario Major MD, Preoperative Diagnosis: Right inguinal hidradenitis suppurativa. Postoperative Diagnosis: Right inguinal hidradenitis suppurativa. Procedures Performed: 1.Excisional debridement of the right inguinal hidradenitis down to fascia. 2.Application of amniotic tissue graft material. Anesthesia: MAC plus local with 0.5% Marcaine with epinephrine. Estimated Blood Loss: Less than 2 mL. Specimen: Excised debridement tissue. Findings: Right inguinal hidradenitis suppurativa. Complications: None. Implants: AmnioFill. Disposition: Transferred to recovery room in good condition. Procedure In Detail: After informed was obtained, patient was brought to the operating room, prepped and draped in the usual sterile fashion. After adequate anesthesia was achieved, an elliptical area of the right inguinal crease was excised for approximately 5 cm x 4 cm x 3 cm depth. Using a 15 sonja de, the subcutaneous tissues were dissected. The electrocautery was used to dissect down circumferen tially as described above for the measurements as above. Electrocautery was used to dissect circumfe rentially around and all tissue was excised and sent off for pathologic examination. The area was co piously irrigated. Hemostasis was easily achieved with electrocautery. The fascia was left pristine and intact. No additional hidradenitis tissue was left in this area. The AmnioFill was then hydrat ed appropriately and packed into the wound, circumferentially coating all surfaces. I then used a 2- 0 nylon suture in an interrupted vertical mattress type closure with good approximation of tissues. A sterile dressing was placed over top. Patient tolerated the procedure well without evidence of com plication and transferred to PACU in good condition. All counts were correct at the end of the case. TK/MODL Voice ID: [id number] Report ID: [id number]
== END 2019-05-24 11:58 | disposition home or self-care (01) ==
LOC: OR 08:03
PROVIDERS: ATTEND Surgery
PROC: 0HR Skin and Breast, Replacement (ICD-10-PCS; 2019-05-24)
PROC: 0JBC0ZZ Excision of Pelvic Region Subcutaneous Tissue and Fascia, Open Approach (ICD-10-PCS; principal; 2019-05-24 09:30)
DX: L73.2 Hidradenitis suppurativa (principal); F17.200 Nicotine dependence, unspecified, uncomplicated; Z88.6 Allergy status to analgesic agent; Z88.8 Allergy status to other drugs, medicaments and biological substances
CPT/HCPCS: 88304; 11042; 17999; J2704; J2250 ×2; J3010; J1170 ×3; J0690; J7120 ×2; J2405

== ENCOUNTER 2019-06-10 10:54 | Day surgery (SDC) | payer OTHER ==
--- OUTSIDE RECORDS SUMMARY | 2019-06-10 10:57 | XMS REPORT ---
:1965 [facility] Address [address] [place] [address] Dr. Conley [address] [place] [id number] Care Team Providers Name Role Phone Unavailable Unavailable Unavailable Problems This patient has no known problems. Allergies, Adverse Reactions, Alerts This patient has no known allergies or adverse reactions. Medications This patient has no known medications.
[2019-06-10] MEDS ORDERED: Ringers Lactate 1,000 ML IV ONE ×2 (11:26→14:08)
[2019-06-10] MEDS ORDERED: CEFAZOLIN/SWI 1gm 1 GM/10 ML SYR ONE (11:27)
[2019-06-10] MEDS ORDERED: BUPIVACA 0.5%/EPI 0.0005%/PF 30 ML VIAL ONE (13:30)
[2019-06-10] MEDS ORDERED: NS 0.9% VIAL 10 ML ONE (13:44)
[2019-06-10] MEDS ORDERED: propofoL 200 MG/20 ML VIAL IV ONE (14:03)
[2019-06-10] MEDS ORDERED: FENTANYL CITR 100 MCG/2 ML ONE (14:03)
[2019-06-10] MEDS ORDERED: MIDAZOLAM HCL 2 MG/2 ML INJ ONE (14:03)
[2019-06-10] MEDS ORDERED: LIDOCAINE 1% MPF 5 ML VIAL ONE (14:03)
[2019-06-10] MEDS ORDERED: KETOROLAC 30 MG/ML INJ ONE (14:44)
--- NOTE | 2019-06-10 14:52 | P.OP ---
Preoperative diagnosis: LEFT Inguinal Hidrainitis Postoperative diagnosis: LEFT Inguinal Hidrainitis Primary procedure: Wide Local Exision of LEFT Inguinal Hidrainitis Secondary procedure: Application of Amniofill placental graft tissue Anesthesia: GETA + Local Estimated blood loss: <2cc Specimen: Tissue Findings: ~5cmx 2cm oval LEFT Inguinal Hidrainitis Implants: Mimedix Amniofill 500G Transferred to: Recovery Room Condition: Good
[2019-06-10] MEDS ORDERED: ONDANSETRON 4 MG/2 ML VIAL ONE (14:53)
[2019-06-10] MEDS: MORPHINE 4 MG/ML SYR ONE ×4 (15:10→15:30)
[2019-06-10] MEDS ORDERED: PROMETHAZINE INJ 25 MG/ML AMP ONE (15:10)
[2019-06-10 16:14] VITALS: BP 121/68; TEMP 97.2; O2SAT 97
--- NOTE | 2019-06-10 21:26 | OP ---
Date of Procedure: 06/10/2019 Surgeon: Nazario Major MD, Preoperative Diagnosis: Left inguinal hidradenitis. Postoperative Diagnosis: Left inguinal hidradenitis. Procedure: 1.Wide local excision of left inguinal hidradenitis. 2.Application of AmnioFill placental graft tissue. Anesthesia: General endotracheal plus local with 0.5% Marcaine with epinephrine. Estimated Blood Loss: Less than 2 mL. Specimen: Debridement tissue. Findings: 5 cm x 2 cm oval left inguinal hidradenitis. Implants: MiMedx AmnioFill 500 g tissue graft. The patient transferred recovery room in good condition. Procedure In Detail: After informed consent was obtained, patient was brought to the operating room prepped and draped in the usual sterile fashion. After adequate anesthesia achieved, I injected kiya tional 0.5% Marcaine with epinephrine in the left inguinal crease ultimately down through subcutaneou s tissues. I then made an elliptical incision for approximately 5 x 2 cm using a 15-blade down throu gh subcutaneous tissues. I then used the electrocautery to dissect down the subcutaneous tissues and into the hidradenitis scar tissue. I dissected circumferentially out approximately 2.5 cm wedge dominick n to the muscle fascia, but not including the muscle fascia removing all debridement tissue. At this point, I then sent this off for pathologic examination. Copiously irrigated the area multiple times until completely clear. Hemostasis was achieved with electrocautery. 500 g of AmnioFill placental graft tissue was appropriately hydrated, placed in the into the wound and coated all surfaces. I the n closed the wound over the top using interrupted 2-0 nylon sutures with a vertical mattress incision type closure. I then irrigated the skin once again and placed a sterile dressing on top. Patient t olerated the procedure well without complication, transferred PACU in good condition. All counts wer e correct at the end of case. TK/MODL Voice ID: [id number] Report ID: [id number]
== END 2019-06-10 16:36 | disposition home or self-care (01) ==
LOC: OR 10:54
PROVIDERS: ATTEND Surgery
PROC: 0JR Subcutaneous Tissue and Fascia, Replacement (ICD-10-PCS; 2019-06-10)
PROC: 0JBC0ZZ Excision of Pelvic Region Subcutaneous Tissue and Fascia, Open Approach (ICD-10-PCS; principal; 2019-06-10 12:30)
DX: L73.2 Hidradenitis suppurativa (principal); G47.33 Obstructive sleep apnea (adult) (pediatric); F41.9 Anxiety disorder, unspecified; E66.01 Morbid (severe) obesity due to excess calories; Z68.41 Body mass index [BMI] 40.0-44.9, adult; F17.200 Nicotine dependence, unspecified, uncomplicated; Z88.8 Allergy status to other drugs, medicaments and biological substances
CPT/HCPCS: 88304; 11463; 15271; J2704; J2550; J2250; J3010; J0690; J7120 ×2; J2405

== ENCOUNTER 2020-06-29 15:11 | Inpatient (IN) | payer OTHER ==
--- NOTE | 2020-06-30 09:11 | R.PREADM ---
PRE-ADMISSION SCREENING FORM SCREENING DATE AND TIME 06/29/2020 10:25 (FULL ROLL INSPECTOR) ANTICIPATED REHAB ADMISSION DATE 07/01/2020 REFERRING FACILITY [facility] REFERRAL DATE AND TIME 06/26/2020 10:25 (FULL ROLL INSPECTOR) REFERRAL ROOM# [id number] ACUTE ADMIT DATE 06/30/2020 Previous Rehabilitation(s): No. 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 CLINICAL LIAISON Spike Dorman PHYSICIAN REVIEWER Dr. Paco Brizuela M.D. MR# [id number] NAME MARYAM INIGUEZ ADDRESS [address] [place] [address] PHONE [facility] [address] DATE OF 1965 AGE 54 SSN# [id number] GENDER female MARITAL STATUS RACE unknown race PREF. LANGUAGE (IF NON-GREEK) Czech ADMIT FROM 02 - [facility] PRE-HOSPITAL LIVING SETTING 01 - Home (private home/apt. board/care, assisted living, jail, transitional living) HOME TYPE AND DETAILS Type of home: single family house # of steps within the residence: 0 # of levels in the residence: 1 # of steps to enter the residence: 0 PRE-HOSPITAL LIVING WITH Family/Relatives FAMILY SUPPORT Yes PRIMARY FAMILY CONTACT NAME CRICKET INIGUEZ PRIMARY FAMILY CONTACT PHONE PRIMARY FAMILY CONTACT RELATIONSHIP Spouse PHONE PRIMARY FAMILY CONTACT ON ADM.? no IS PRIMARY FAMILY CONTACT AUTH. REP.? no 1ST EMERGENCY CONTACT CRICKET INIGUEZ 1ST CONTACT PHONE 1ST CONTACT RELATIONSHIP Spouse PHONE 1ST CONTACT ON ADM. no IS 1ST CONTACT AUTH. REP.? no PHONE 2ND CONTACT ON ADM.? no PATIENT EMPLOYMENT STATUS Employed Ins[employer] And Former PAYOR INFORMATION: 1ST PAYOR NAME [facility] 1ST PAYOR PHONE [phone] 1ST PAYOR INJURY/ILLNESS DUE TO ACCIDENT? No ANOTHER GREEN PARTY RESPONSIBLE? 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 is a 54 yo Right-handed female of unknown race. On 06/24/2020 she was admitted to [facility] with diagnosis (PRINCIPAL) SAGITTAL PLANE IMBALANCE. 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 Pre-morbidly, Pt. was independent/mod-I in Safety Awareness, Balance, and Self-Care; and she had good Endurance and Self-Care. Currently, she has deficits of Locomotion, Balance, Transfers Control, Social Cognition, Sphincter Co ntrol, and Endurance. Pt. is now referred to [facility] for acute in-patient rehabilitation in order to maximize patient's functional independence in activities of daily living, strength, ROM, and mobi lity. Patient has realistic goal of being discharged at assistance level 7-Ind to reside at Home with Fami ly/Relatives. PAST MEDICAL HISTORY ANESTHESIA ARTHRITIS CHRONIC BACK PAIN Claustrophobia (F40.240) CPAP degenerative arthritis DEPRESSION DIVERTICULITIS HIGH CHOLESTEROL HL LOWER BACK PAIN MENOPAUSE MOTION SICKNESS NECK PAIN HCC SCOLIOSIS SLEEP APNEA WHEELCHAIR DEPENDENCE UPPER BACK PAIN PAST SURGICAL HISTORY: ANKLE SURGERY LEFT BREAST LUMPECTOMY BACK SURGERY CARPAL TUNNEL RELEASE DENTAL SURGERY ELBOW SURGERY FOOT NEUROMIA SURGERY FUSION, SPINE, THORACIC HYSTERECTOMY KNEE ARTHROSCOPY REVISION, PLACEMENT, PAIN PUMP SKIN BIOPSY TRIGGER FINGER RELEASE MEDICATION ALLERGIES: ADHESIVE TAPE SILICONES COMPAZINE DEMEROL ENVIRONMENTAL ALLERGIES: - Substance Allergies None Known - Other Allergies None Known CODE STATUS: Full code WEIGHT/HEIGHT/BMI: WEIGHT 248 lbs HEIGHT 5' 3" BMI 43.9 DIET: - Diet Type Regular - Diet - Solid Texture Regular - Diet - Liquid Texture Regular - Tube Feed N/A REVIEW OF SYSTEMS: - Gen Alert and awake Lying in bed No apparent distress Oriented to: person, time, and place - Vital Signs Temperature: 97.6 F SBP/DBP: 117/58 Pulse: 65 Resp: 19 Vital signs stable, afebrile - CVS RRR VITAL SIGNS Temperature: 97.6 F SBP/DBP: 117/58 Pulse: 65 Resp: 19 Vital signs stable, afebrile MEDICATIONS/TREATMENT: Other- See attached MAR (Medication Administration Record). CURRENT SPHINCTER CONTROL: Pre-hospital bladder status: unspecified # of bladder accidents in the last 7 days prior to screenin Pre-hospital bowel status: unspecified # of bowel accidents in the last 7 days prior to screenin Last Bowel Movement Date: 06/29/2020 CURRENT LOCOMOTION STATUS: distance walked 250 feet WITH ROLLING WALKER DETAILED CURRENT FUNCTIONAL STATUS: - Bladder accident frequency: 7-Ind - No accidents in the past 7 days - Bowel accident frequency: 7-Ind - No accidents in the past 7 days - Walking score based on distance walked: 0(N/A) - Wheelchair score based on distance traveled: 0(N/A) QI SCORES: - Self-Care A. Eating 06-Independent B. Oral hygiene 03-Partial/moderate assistance C. Toileting hygiene 04-Supervision or touching assistance E. Shower/bathe self 04-Supervision or touching assistance F. Upper body dressing 04-Supervision or touching assistance G. Lower body dressing 04-Supervision or touching assistance H. Putting on/taking off footwear 88-Not attempted due to medical condition or safety concerns - Mobility A. Roll left and right 04-Supervision or touching assistance B. Sit to lying 04-Supervision or touching assistance C. Lying to sitting on side of bed 04-Supervision or touching assistance D. Sit to stand 04-Supervision or touching assistance E. Chair/onx-sn-kvros transfer 04-Supervision or touching assistance F. Toilet transfer 04-Supervision or touching assistance G. Car transfer 88-Not attempted due to medical condition or safety concerns I. Walk 10 feet 04-Supervision or touching assistance J. Walk 50 feet with two turns 04-Supervision or touching assistance K. Walk 150 feet 04-Supervision or touching assistance L. Walking 10 feet on uneven surfaces 88-Not attempted due to medical condition or safety concerns M. 1 step (curb) 88-Not attempted due to medical condition or safety concerns N. 4 steps 88-Not attempted due to medical condition or safety concerns O. 12 steps 88-Not attempted due to medical condition or safety concerns P. Picking up object 88-Not attempted due to medical condition or safety concerns R. Wheel 50 feet with two turns 88-Not attempted due to medical condition or safety concerns S. Wheel 150 feet 88-Not attempted due to medical condition or safety concerns - Bladder and Bowel Bladder continence Bowel continence - Endurance Good - Balance Good - Safety Awareness Good CURRENT FUNC. DEFICITS: Mobility and Self-Care CURRENT / PREVIOUS ASSISTIVE DEVICES: Rolling Walker THERAPY NOTES FROM ACUTE CARE: Attached. SPECIAL NEEDS: - Safety Concerns Skin breakdown precautions needed due to skin breakdown risk PRECAUTIONS: - Weight Bearing Precaution Weight bearing as tolerated B LE PATIENT NEEDS ACTIVE AND ONGOING THERAPEUTIC INTERVENTION OF MULTIPLE THERAPY DISCIPLINES, INCLUDING: - Orthotics/Prosthetics Orthotic Evaluation. Splinting/Casting. - Dietary and Nutrition Adequate Nutrition. Nutritional Education. Nutritional Supplements. PATIENT NEEDS CLOSE MEDICAL SUPERVISION BY A REHABILITATION PHYSICIAN FOR: Coordination of Treatment Team PATIENT REQUIRES 24X7 REHAB NURSING FOR MEDICAL AND FUNCTIONAL MGT. OF THE FOLLOWING DEFICITS: Disease Management Medication Management Patient/Family Education Providing Safe Environment PATIENT REQUIRES INTENSIVE, COORDINATED INTERDISCIPLINARY APPROACH TO REHAB: Arranging Home Equipment/Services Discharge Planning Family Intervention/Training Ordnance Artificer/Case Management PATIENT REHAB POTENTIAL: Malka INIGUEZ is able and expected to receive 3 hours of individualized therapy daily on at least 5 of ev ted 7 days Malka INIGUEZ's prognosis for significant practical improvement within a reasonable period of time appear s Good Expected level of measurable improvement will be of a practical value to Malka INIGUEZ's functional capac ity or adaptations to impairments Has a viable Discharge Plan Medically appropriate; condition is sufficiently stable to participate in intensive rehab program DISCHARGE PLAN: - Estimated Length of Stay (days) 27. - Consensus on plan Discharge plan has been discussed with primary caregiver. Patient/Family is in agreement with the enmanuel n. Primary caregiver is in agreement with the plan. - Patient/Family Goals Return home independently. - Planned Living Setting Upon Discharge Home, to live with Family/Relatives. Transitional Living. RECOMMENDED CARE LEVEL: IRF RECOMMENDATION DETAILS: Recommended Admission to Comprehensive Rehabilitation Program to Increase Functional [place] SCREENER'S COMPLETENESS CONFIRMATION: - Screening Confirmation The patient data collection on this preadmission screening form is finished PHYSICIANS REVIEW AND ADMISSION DETERMINATION Admit - Based on my review of the Pre-Admission Screening results, in my medical judgment and experie nce, I concur with the findings and recommend admission to [facility], as this patient requires an IRF level of care. SIGNATURE PANEL: Fire[employer]el Locomotive - [electronically] signed by Spike Dorman on 06/29/2020 at 13:08 (FULL ROLL INSPECTOR) [employer] Locomotive - [electronically] signed by Fadi Romero PT on 06/29/2020 at 13:22 (FULL ROLL INSPECTOR) Physician Reviewer - [electronically] signed by Dr. Paco Brizuela M.D. on 06/30/2020 at 09:10 (FULL ROLL INSPECTOR )
--- OUTSIDE RECORDS SUMMARY | 2020-06-30 14:23 | XMS REPORT | Continuity of Care Document ---
:1965 Author Organization [facility] Address [address] [place] [address] Dr. Conley [address] [place] [address] Care Team Providers Name Role Phone ELIZABETH Attending Clinician Unavailable VIKI Attending Clinician Unavailable ELIZABETH Admitting Clinician Unavailable Problems This patient has no known problems. Allergies, Adverse Reactions, Alerts This patient has no known allergies or adverse reactions. Medications This patient has no known medications. Procedures This patient has no known procedures. Encounters Start End Encounter Admission Attending Care Care Encounter Source Date/Time Date/Time Type Type Clinicians Facility Department ID 2020-06-24 2020-06-30 [id number] [place] 00:00:00 00:00:00 FLOY[facility] [address] 2020-06-22 2020-06-22 [facility] [id number] [place] 00:00:00 00:00:00 FLOYD [address] 2020-06-04 2020-06-04 [facility] [id number] [place] 00:00:00 00:00:00 FLOYD [address] 2020-06-04 2020-06-04 [facility] [id number] [place] 00:00:00 00:00:00 FLOYD [address] 2020-06-04 2020-06-04 Outpatient ELIZABETH [facility] [id number] [place] 00:00:00 00:00:00 FLOYD [address] 2020-04-06 2020-04-06 Outpatient VIKI [facility] [id number] [place] 00:00:00 00:00:00 SHAYAN [address] 2020-04-06 2020-04-06 [facility] [id number] [place] 00:00:00 00:00:00 FLOYD [address] Results This patient has no known results.
[2020-06-30] MEDS: MORPHINE 15 MG IR TAB PO PRN ×2 (15:04→20:25)
[2020-06-30] MEDS ORDERED: MELATONIN 3 MG TABLET PO PRN (15:41)
[2020-06-30] MEDS ORDERED: ACETAMINOPHEN 500 MG TAB PO PRN (15:41)
[2020-06-30] MEDS ORDERED: BISACODYL 10 MG RECTAL SUPP PR PRN (15:43)
[2020-06-30] MEDS ORDERED: DIPHENHYDRAMINE 25 MG TAB/CAP PO PRN ×2 (15:44→21:10)
[2020-06-30 15:52] VITALS: BMI 45.8
[2020-06-30 15:53] LABS: Urine Appearance CLEAR; Urine Bilirubin NEGATIVE (NEG); Urine Blood NEGATIVE (NEG); Urine Color YELLOW; Urine Glucose NEGATIVE (NEG); Urine Protein NEGATIVE (NEG); Urine Specific Gravity <=1.005 (1.005-1.030); Urine pH 6.5 (5.0-7.0)
[2020-06-30] MEDS: methocarbamoL 500 MG TAB PO SCH ×2 (16:35→20:26)
[2020-06-30 16:36] LABS: Urine Bacteria <20 /HPF (<20); Urine RBC NONE SEEN /HPF (NONE SEEN)
[2020-06-30] MEDS ORDERED: TRAZODONE 50 MG TABLET PO PRN ×2 (18:29→21:10)
[2020-06-30] MEDS: POLYETHYL GLY 3350 17 GM/DOSE PO SCH ×2 (20:00→20:27)
[2020-06-30] MEDS: APIXABAN 2.5 MG TABLET PO SCH ×2 (20:00→20:27)
[2020-06-30] MEDS: HYDRALAZINE HCL 10 MG TABLET PO SCH (20:00)
[2020-06-30] MEDS: ENALAPRIL 2.5 MG TAB PO SCH (20:00)
[2020-06-30] MEDS: DOCUSATE NA/SENNA CONC 1 TAB PO SCH (20:27)
[2020-06-30] MEDS: GABAPENTIN 300 MG CAP PO SCH (20:27)
[2020-06-30] MEDS ORDERED: ONDANSETRON 4 MG (ODT) TAB PO PRN (21:10)
[2020-06-30] MEDS: ACETAMINOPHEN 500 MG TAB PO SCH (22:20)
[2020-07-01] MEDS: MORPHINE 15 MG IR TAB PO PRN ×5 (01:40→21:00)
[2020-07-01] MEDS: ACETAMINOPHEN 500 MG TAB PO SCH ×2 (05:04→14:00)
[2020-07-01] MEDS: methocarbamoL 500 MG TAB PO SCH ×3 (05:05→19:23)
[2020-07-01 07:00] LABS: Absolute Lymphocytes (CBC) 1.9 K/uL (0.7-4.9); Basophils % 0.4 % (0-1.3); Hematocrit 32.7 % (36.0-45.0); Lymphocytes % 29.5 % (15.3-44.8); MPV 7.7 fL (7.6-11.3); RBC Red Blood Cell Count 3.59 M/uL (3.86-4.86)
[2020-07-01 07:18] LABS: Albumin 2.7 g/dL (3.4-5.0); BUN Blood Urea Nitrogen 7 mg/dL (7-18); Bicarbonate 34 mmol/L (21-32); Glucose Level 107 mg/dL (74-106); Magnesium 2.3 mg/dL (1.8-2.4); Prealbumin 13.8 mg/dL (20-40); Sodium Level 140 mmol/L (136-145)
[2020-07-01] MEDS: APIXABAN 2.5 MG TABLET PO SCH (08:00)
[2020-07-01] MEDS: HYDRALAZINE HCL 10 MG TABLET PO SCH ×2 (08:00→20:00)
[2020-07-01] MEDS ORDERED: HOME MED 1 EA UNK (Naloxegol Oxalate [Movantik] 25 MG Tablet) PO SCH (08:00)
[2020-07-01] MEDS ORDERED: HYDRALAZINE HCL 10 MG TABLET PO SCH (08:00)
[2020-07-01] MEDS ORDERED: DULOXETINE 30 MG CAP PO SCH (08:00)
[2020-07-01] MEDS ORDERED: NICOTINE 14 MG/PAT TD SCH (08:00)
[2020-07-01] MEDS ORDERED: PANTOPRAZOLE 40MG TABLET PO SCH (08:00)
[2020-07-01] MEDS ORDERED: POLYETHYL GLY 3350 17 GM/DOSE PO SCH (08:00)
[2020-07-01] MEDS: NALOXEGOL 25 MG PO SCH (08:00)
[2020-07-01] MEDS ORDERED: ENALAPRIL 2.5 MG TAB PO SCH (08:00)
[2020-07-01] MEDS: ENALAPRIL 2.5 MG TAB PO SCH ×2 (08:00→20:00)
[2020-07-01] MEDS ORDERED: VITAMIN D 1000 UNIT TAB PO SCH (08:00)
[2020-07-01] MEDS: DULOXETINE 30 MG CAP PO SCH (08:27)
[2020-07-01] MEDS: PANTOPRAZOLE 40MG TABLET PO SCH (08:28)
[2020-07-01] MEDS: DOCUSATE NA/SENNA CONC 1 TAB PO SCH ×2 (08:28→20:00)
[2020-07-01] MEDS: VITAMIN D 1000 UNIT TAB PO SCH (08:28)
[2020-07-01] MEDS: POLYETHYL GLY 3350 17 GM/DOSE PO SCH ×2 (08:29→20:00)
[2020-07-01] MEDS ORDERED: GABAPENTIN 300 MG CAP PO SCH (09:00)
[2020-07-01] MEDS ORDERED: methocarbamoL 500 MG TAB PO SCH (09:00)
[2020-07-01] MEDS: GABAPENTIN 300 MG CAP PO SCH ×3 (09:58→20:10)
[2020-07-01] MEDS: NICOTINE 14 MG/PAT TD SCH (09:59)
--- NOTE | 2020-07-01 17:09 | R.HP ---
HISTORY AND PHYSICAL FACILITY: [facility] ENCOUNTER DATE AND TIME: 07/01/2020 17:03 (DIESEL STATIONARY ENGINEER) MR#: [id number] NAME MARYAM INIGUEZ ADDRESS: [address] [place] [address] ROAD [facility] CITY: [place]IP [address] PHONE: DATE OF : 1965 AGE: 54 SSN# [id number] GENDER: Female DEXTERITY Right-handed MARITAL STATUS RACE Unknown race PRE-HOSPITAL LIVING SETTING 01 - Home (private home/apt. board/care, assisted living, chcf, transitional living) PRE-HOSPITAL LIVING WITH Family/Relatives ENCOUNTER PHYSICIAN: Dr. Paco Brizuela M.D. REFERRING DOCTOR: FLOYD JOHNSON DATE OF ADMISSION: 06/30/2020 14:19 (DIESEL STATIONARY ENGINEER) REFERRING FACILITY [facility] HOME TYPE AND DETAILS: Type of home: single family house # of steps within the residence: 0 # of levels in the residence: 1 # of steps to enter the residence: 0 ONSET DATE: 06/24/2020 PRIMARY DIAGNOSIS-RELATED SURGERIES: S/P REVISION [id number] PSIF WITH REVISION FUSION L3-L5 HISTORY OF PRESENT ILLNESS (HPI): Pt. is a 54 yo Right-handed female of unknown race. On 06/24/2020 she was admitted to [facility] with diagnosis (PRINCIPAL) SAGITTAL PLANE IMBALANCE. 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 Pre-morbidly, Pt. was independent/mod-I in Safety Awareness, Balance, and Self-Care; and she had good Endurance and Self-Care. Currently, she has deficits of Locomotion, Balance, Transfers Control, Social Cognition, Sphincter Co ntrol, and Endurance. Pt. is now referred to [facility] for acute in-patient rehabilitation in order to maximize patient's functional independence in activities of daily living, strength, ROM, and mobi lity. Patient has realistic goal of being discharged at assistance level 7-Ind to reside at Home with Fami ly/Relatives. MEDICATION ALLERGIES: ADHESIVE TAPE SILICONES COMPAZINE DEMEROL ENVIRONMENTAL ALLERGIES: - Substance Allergies None Known - Other Allergies None Known PAST MEDICAL HISTORY: ANESTHESIA ARTHRITIS CHRONIC BACK PAIN Claustrophobia (F40.240) CPAP degenerative arthritis DEPRESSION DIVERTICULITIS HIGH CHOLESTEROL HL LOWER BACK PAIN MENOPAUSE MOTION SICKNESS NECK PAIN HCC SCOLIOSIS SLEEP APNEA WHEELCHAIR DEPENDENCE UPPER BACK PAIN PAST SURGICAL HISTORY: ANKLE SURGERY LEFT BREAST LUMPECTOMY BACK SURGERY CARPAL TUNNEL RELEASE DENTAL SURGERY ELBOW SURGERY FOOT NEUROMIA SURGERY FUSION, SPINE, THORACIC HYSTERECTOMY KNEE ARTHROSCOPY REVISION, PLACEMENT, PAIN PUMP SKIN BIOPSY TRIGGER FINGER RELEASE SOCIAL HISTORY: - Home Living Family/Relatives REVIEW OF SYSTEMS: - Gen No Chills Fatigue No Fever - Eyes No Double Vision No itchiness - ENMT No Difficulty Swallowing - CVS No Chest Discomfort No Chest Pain No Fatigue No Weight Gain - Resp No Cough No Shortness of Breath - GI Continent No Abdominal Pain No Constipation No Diarrhea - Continent No Kidney Pain No Painful Urination No Urinary Urgency - MSK No Joint Pain Muscle Cramps Stiffness - Skin No Itching No Rash No Suspicious Lesions - Neuro Coordination Difficulty No Difficulty with Concentration No Memory Loss No Seizures Weakness - Psych No Anxiety No Depression No HIV Exposure No Persistent Infections No Seasonal Allergies - Endo No Cold/Heat Intolerance No Excessive Hunger No Excessive Thirst No Excessive Urination PHYSICAL EXAM - Gen Alert and awake Lying in bed No apparent distress Oriented to: person, time, and place - Skin No breakdown No numbness - Eyes No abnormalities - ENMT No abnormalities - Neck No abnormalities - CVS RRR - Chest Clear - Abd + bowel sounds - GI Non distended Deferred - No abnormalities - Ext No significant edema - MSK 4+/5 weakness in both lower extremities. - Neuro No focal deficits - Psych No abnormalities VITAL SIGNS Temperature: 97.7 F SBP/DBP: 134/68 Pulse: 75 Resp: 16 NURSING: - Shower allowing shower - Bladder care per protocol - Skin care per protocol PRECAUTIONS: - Weight Bearing Precaution Weight bearing as tolerated B LE ACTIVITIES OOB only with supervision QI SCORES: - Self-Care A. Eating 06-Independent B. Oral hygiene 03-Partial/moderate assistance C. Toileting hygiene 04-Supervision or touching assistance E. Shower/bathe self 04-Supervision or touching assistance F. Upper body dressing 04-Supervision or touching assistance G. Lower body dressing 04-Supervision or touching assistance H. Putting on/taking off footwear 88-Not attempted due to medical condition or safety concerns - Mobility A. Roll left and right 04-Supervision or touching assistance B. Sit to lying 04-Supervision or touching assistance C. Lying to sitting on side of bed 04-Supervision or touching assistance D. Sit to stand 04-Supervision or touching assistance E. Chair/nsf-dm-oyonc transfer 04-Supervision or touching assistance F. Toilet transfer 04-Supervision or touching assistance G. Car transfer 88-Not attempted due to medical condition or safety concerns I. Walk 10 feet 04-Supervision or touching assistance J. Walk 50 feet with two turns 04-Supervision or touching assistance K. Walk 150 feet 04-Supervision or touching assistance L. Walking 10 feet on uneven surfaces 88-Not attempted due to medical condition or safety concerns M. 1 step (curb) 88-Not attempted due to medical condition or safety concerns N. 4 steps 88-Not attempted due to medical condition or safety concerns O. 12 steps 88-Not attempted due to medical condition or safety concerns P. Picking up object 88-Not attempted due to medical condition or safety concerns R. Wheel 50 feet with two turns 88-Not attempted due to medical condition or safety concerns S. Wheel 150 feet 88-Not attempted due to medical condition or safety concerns - Bladder and Bowel Bladder continence Bowel continence - Endurance Good - Balance Good - Safety Awareness Good CURRENT FUNC. DEFICITS: Mobility and Self-Care MEDICATIONS: - Other See attached MAR (Medication Administration Record) ASSESSMENT: Pt. is a 54 yo Right-handed female of unknown race.On 06/24/2020 she was admitted to [facility] with d pacheco (PRINCIPAL) SAGITTAL PLANE IMBALANCE.Her impairment category is Spinal Cord Dysfunction 04 - Other Traumatic Spinal Cord Dysfunction (04.230).Pre-morbidly, Pt. was independent/mod-I in Safety Awareness, Balance, and Self-Care; and she had good Endurance and Self-Care.Currently, she has defici ts of Locomotion, Balance, Transfers Control, Social Cognition, Sphincter Control, and Endurance.Pt. is now referred to [facility] for acute in-patient rehabilitation in order to maximize patient's functional independence in activities of daily living, strength, ROM, and mobility .- Rehab Goal Patient has realistic goal of being discharged at assistance level 7-Ind to reside at Home with Fami ly/Relatives. REHAB PLAN: - Physical Therapy Inability to transfer - to improve, our physical therapists will perform initial evaluation of pt's s tatus upon admission and devise an individualized program for Bed mobility Need for home safety evaluation - to improve, our physical therapists will perform initial evaluation of pt's status upon admission and devise an individualized program for Home Evaluation Need in caregiver upon discharge - to improve, our physical therapists will perform initial evaluatio n of pt's status upon admission and devise an individualized program for Caregiver Training New precaution - to improve, our physical therapists will perform initial evaluation of pt's status u fabián admission and devise an individualized program for Patient precaution education Edema - to improve, our physical therapists will perform initial evaluation of pt's status upon admi ssion and devise an individualized program for Elevation Training, and Lymphedema Therapy Poor balance - to improve, our physical therapists will perform initial evaluation of pt's status upo n admission and devise an individualized program for Balance Training Poor endurance - to improve, our physical therapists will perform initial evaluation of pt's status u fabián admission and devise an individualized program for Endurance Training Achieving independence - to improve, our physical therapists will perform initial evaluation of pt's status upon admission and devise an individualized program for Community Reintegration Activities - Occupational Therapy Cognitive deficits - to improve, our occupation therapists will perform initial evaluation of pt's st atus upon admission and devise an individualized program for Cognition - orientation Need for child care specialist - to improve, our occupation therapists will perform initial evaluation of pt's s tatus upon admission and devise an individualized program for Caregiver Training MEDICAL PLAN: - Diet Type Start Regular - Diet - Liquid Texture Start Regular - Tube Feed Start N/A - Bladder care per protocol - Weight Bearing Precaution Weight bearing as tolerated B LE - Skin care per protocol - Other See attached MAR (Medication Administration Record) - Diet - Solid Texture Regular - Shower shower DISCHARGE PLAN: - Estimated Length of Stay (days) 27. - Consensus on plan Discharge plan has been discussed with primary caregiver. Patient/Family is in agreement with the enmanuel n. Primary caregiver is in agreement with the plan. - Patient/Family Goals Return home independently. - Planned Living Setting Upon Discharge Home, to live with Family/Relatives. Transitional Living. SIGNATURE PANEL: (DIESEL STATIONARY ENGINEER)
--- NOTE | 2020-07-01 17:10 | PAPE ---
POST ADMISSION PHYSICIAN EVALUATION PATIENT: [facility] MR# [id number] REFERRING DOCTOR FLOYD JOHNSON EVALUATION DATE AND TIME 07/01/2020 17:09 (COMPUTER SALESPERSON RETAIL) NAME MAYRAM INIGUEZ DATE OF 1965 AGE 54 PHONE SSN# [id number] GENDER female EVALUATING PHYSICIAN Dr. Paco Brizuela M.D. ADMISSION DIAGNOSIS: (PRINCIPAL) SAGITTAL PLANE IMBALANCE ONSET DATE 06/24/2020 POST-ADMISSION FUNCTIONAL/MEDICAL STATUS: - Bladder Same accident frequency: 7-Ind - No accidents in the past 7 days - Bowel Same accident frequency: 7-Ind - No accidents in the past 7 days - Walking Same score based on distance walked: 0(N/A) - Wheelchair Same score based on distance traveled: 0(N/A) STATUS CHANGE EVALUATION: No change in Functional or Medical Status is identified compared with Pre-Admission screening. PATIENT NEEDS CLOSE MEDICAL SUPERVISION BY A REHABILITATION PHYSICIAN FOR: Coordination of Treatment Team PATIENT REQUIRES 24X7 REHAB NURSING FOR MEDICAL AND FUNCTIONAL MGT. OF THE FOLLOWING DEFICITS: Disease Management Medication Management Patient/Family Education Providing Safe Environment PATIENT REQUIRES INTENSIVE, COORDINATED INTERDISCIPLINARY APPROACH TO REHAB: Arranging Home Equipment/Services Discharge Planning Family Intervention/Training Mechanical Maintenance/Case Management LIST OF IDENTIFIED AND POTENTIAL PROBLEMS: Alteration in leisure activities Bladder, Incontinence Bowel, Incontinence Infection, Actual or Potential Mobility Impaired Pain, Alteration in Comfort Self Care Deficit Skin Integrity, Actual or Potential Urinary Tract Infection (UTI), Actual or Potential PATIENT COULD BE AT RISK FOR COMPLICATIONS FROM ADVERSE MEDICAL CONDITIONS DUE TO HIS/HER COMORBIDITI ES AND THE RIGORS OF THE INTENSIVE REHABILLITATION PROGRAM. METHODS OR INTERVENTIONS TO AVOID COMPLIC ATIONS INCLUDE: - Infection Clinical staff to assess and manage the signs and symptoms of infection including fever, redness, war mth, etc. - Urinary Tract Infection - Falls Patient will be evaluated for Fall Precautions and will be placed on Fall Precautions as indicated pe r protocol. - Skin Breakdown Nursing will assess skin daily using assessment tool and will place on Skin Breakdown Precautions as indicated per protocol. - Pain Clinical staff may employ non-medication methods such as massage, distraction, decrease stimulus, etc . as needed. Clinical staff will assess patient's pain level every shift per protocol to assess and e nsure pain management effectiveness. Medications will be given and the pain level re-assessed. PRELIMINARY PLAN OF CARE: - Physical Therapy Patient needs Physical Therapy for a daily minimum of 1.5 hours at least 5 out of 7 days, to improve: Mobility, Strengthening, Transfers, Stretching, ROM, Endurance, Ability to manage stairs, Gait, and Balance. - Rehabilitation Nursing Patient requires 24x7 Rehabilitation Nursing for: Pain Issues, Identifying and preventing risk factor s, Monitoring and reporting current medical conditions, Assisting with ambulation and transfer, Park ting with all ADL-s, Teaching patients about disease process and medications, Family teaching, Provid ing safe environment, Bowel and Bladder Issues, Skin Integrity, and Medication Management. Patient needs Mechanical Maintenance and/or Case Management for: Discharge Planning, Arranging Home Equipmen t or Services, and Family Interventions. - Dietary and Nutrition Services Patient needs Dietary and Nutrition Services for: Adequate Nutrition, Nutritional Supplements, and Nu tritional Education. - Occupational Therapy Patient needs Occupational Therapy for a daily minimum of 1.5 hours at least 5 out of 7 days, to impr ove Activities of Daily Living, including: Eating, Grooming, Bathing, Dressing, Toileting, Toilet Tra nsfers, Community Reintegration, Higher functional activities, Adaptive Equipment, Splinting, Househo ld Tasks, and Other activities as determined. QI SCORES: - Self-Care A. Eating 06-Independent B. Oral hygiene 03-Partial/moderate assistance C. Toileting hygiene 04-Supervision or touching assistance E. Shower/bathe self 04-Supervision or touching assistance F. Upper body dressing 04-Supervision or touching assistance G. Lower body dressing 04-Supervision or touching assistance H. Putting on/taking off footwear 88-Not attempted due to medical condition or safety concerns - Mobility A. Roll left and right 04-Supervision or touching assistance B. Sit to lying 04-Supervision or touching assistance C. Lying to sitting on side of bed 04-Supervision or touching assistance D. Sit to stand 04-Supervision or touching assistance E. Chair/qyc-bq-sjulg transfer 04-Supervision or touching assistance F. Toilet transfer 04-Supervision or touching assistance G. Car transfer 88-Not attempted due to medical condition or safety concerns I. Walk 10 feet 04-Supervision or touching assistance J. Walk 50 feet with two turns 04-Supervision or touching assistance K. Walk 150 feet 04-Supervision or touching assistance L. Walking 10 feet on uneven surfaces 88-Not attempted due to medical condition or safety concerns M. 1 step (curb) 88-Not attempted due to medical condition or safety concerns N. 4 steps 88-Not attempted due to medical condition or safety concerns O. 12 steps 88-Not attempted due to medical condition or safety concerns P. Picking up object 88-Not attempted due to medical condition or safety concerns R. Wheel 50 feet with two turns 88-Not attempted due to medical condition or safety concerns S. Wheel 150 feet 88-Not attempted due to medical condition or safety concerns - Bladder and Bowel Bladder continence Bowel continence - Endurance Good - Balance Good - Safety Awareness Good POTENTIAL FUNCTIONAL GOALS FOR PATIENT TO ACHIEVE BY DISCHARGE: - Safety Precaution Patient will remain free from falls or injury at time of discharge. - Bed Mobility Patient will perform bed mobility at 4-Denae level of assistance. - Transfers Patient will complete transfers from bed to chair at 4-Denae level of assistance. - Mobility Patient will ambulate 150 ft with 4-Denae level of assistance with RW. PATIENT REHAB POTENTIAL Malka INIGUEZ is able and expected to receive 3 hours of individualized therapy daily on at least 5 of ev ted 7 days Malka INIGUEZ's prognosis for significant practical improvement within a reasonable period of time appear s Good Expected level of measurable improvement will be of a practical value to AshleyDebbi INIGUEZ's functional capac ity or adaptations to impairments Has a viable Discharge Plan Medically appropriate; condition is sufficiently stable to participate in intensive rehab program DISCHARGE PLAN: - Estimated Length of Stay (days) 27. - Consensus on plan Discharge plan has been discussed with primary caregiver. Patient/Family is in agreement with the enmanuel n. Primary caregiver is in agreement with the plan. - Patient/Family Goals Return home independently. - Planned Living Setting Upon Discharge Home, to live with Family/Relatives. Transitional Living. CONCLUSION ON REHABILITATION NECESSITY: I have evaluated patient's pre-admission functional status and, comparing it to the patient's post-ad mission functional status now, I conclude that the pre-admission assessment was accurate. Patient's c ondition on admission supports the medical necessity of admission to IRF. It is safe to proceed with patient's therapy program. SIGNATURE PANEL: (COMPUTER SALESPERSON RETAIL)
[2020-07-01] MEDS: ENOXAPARIN 40 MG/0.4 ML SQ SCH (17:55)
--- NOTE | 2020-07-01 21:08 | P.HP ---
Certification for Inpatient Patient admitted to: Inpatient With expected LOS: >2 Midnights Practitioner: I am a practitioner with admitting privileges, knowledge of patient current condition, hospital course, and medical plan of care. Services: Services provided to patient in accordance with Admission requirements found in Title 42 Section 412.3 of the Code of Federal Regulations Patient History Date of Service: 07/01/20 Reason for admission: SPINE SURGERY History of Present Illness: MARYAM IS A SCOLIOSIS PATIENT WHO HAS HAD MANY MAJOR SURGERIES IN PAST, BENT OVER TO HR REPRESENTATIVE SOMETHING AND SNAPPED HER RODS IN THE SPINE FROM BEFORE. DR. JOHNSON DID SURGERY AGAIN AND SHE IS NOW IN REHAB. SHE IS OBESE, PREDIABETIC AND SMOKER. Allergies meperidine [From Demerol] Allergy (Verified 06/30/20 19:02) Itching prochlorperazine [From Compazine] Allergy (Verified 06/30/20 19:02) Itching adhesive Adverse Reaction (Verified 06/30/20 19:02) Hives/Rash Home Medications: Acetaminophen [Pain Relief Extra Strength] 1,000 mg PO Q8H 06/30/20 Bisacodyl [Dulcolax] 10 mg RC DAILY PRN 06/30/20 Cholecalciferol (Vitamin D3) [Vitamin D3] 2,000 unit PO DAILY 06/30/20 Diphenhydramine [Benadryl*] 25 mg PO Q6H PRN 06/30/20 Duloxetine HCl [Cymbalta] 60 mg PO DAILY 06/30/20 Enalapril Maleate [Vasotec] 2.5 mg PO BID 06/30/20 Gabapentin 900 mg PO TID 06/30/20 Hydralazine [Apresoline*] 20 mg PO BID 06/30/20 Naloxegol Oxalate [Movantik] 25 mg PO BREAKFAST 06/30/20 Nicotine [Nicoderm] 1 patch TD DAILY 06/30/20 Ondansetron [Zofran (Odt)*] 4 mg PO Q6H PRN 06/30/20 Pantoprazole [Protonix Tab*] 40 mg PO DAILY 06/30/20 Polyethyl Gly 3350 [Glycolax*] 34 gm PO BID 06/30/20 Sennosides [Senna] 8.6 mg PO BID 06/30/20 Trazodone [Desyrel*] 50 mg PO BEDTIME PRN 06/30/20 methocarbamoL [Methocarbamol] 1,000 mg PO QID 06/30/20 - Past Medical/Surgical History Has patient received pneumonia vaccine in the past: Yes Diabetic: No -: Sleep Apnea -: Bladder problems -: pain pump -: constipation -: joint pain/stiffness -: chronic back pain -: 42 back surgeries -: Right Wrist -: Right Ankle -: Right Elbow -: Hysterectomy -: Deep Tendon Release on Right arm -: Carpel Tunnel Right hand -: Left Breast Tumor removal - Family History Mother -: GI disease Father -: Cancer Notes: prostate - Social History Smoking Status: Current every day smoker Alcohol use: No CD- Drugs: Yes Caffeine use: Yes Place of Residence: Home Review of Systems 10-point ROS is otherwise unremarkable Physical Examination - Vital Signs Temperature: 97.8 F Blood Pressure: 144/71 Pulse: 68 Respirations: 16 Pulse Ox (%): 99 - Physical Exam General: Alert, Oriented x3, Mild distress, Moderate distress, Obese HEENT: Atraumatic, PERRLA Neck: Supple, JVD not distended Respiratory: Normal air movement Cardiovascular: No edema, Normal S1 S2 - Studies Laboratory Data (last 24 hrs) 07/01/20 06:47: Sodium 140, Potassium 4.0, BUN 7, Creatinine 0.48 L, Glucose 107 H, Magnesium 2.3 07/01/20 06:47: WBC 6.50, Hgb 11.2 L, Hct 32.7 L, Plt Count 223 Assessment and Plan - Problems (Diagnosis) (1) Encounter for orthopedic aftercare following scoliosis surgery Current Visit: Yes Status: Chronic Plan: REHAB TO GET STRONGER. SHE STILL SMOKES AND GOES DOWN TO SMOKE. (2) Morbid obesity with BMI of 40.0-44.9, adult Current Visit: No Status: Chronic Plan: NOT ABLE TO LOSE WEIGHT DESPITE ADVISE AND INSTRUCTIONS . - Advance Directives Does patient have a Living Will: Yes Does patient have a Durable POA for Healthcare: Yes
[2020-07-02] MEDS: MORPHINE 15 MG IR TAB PO PRN ×6 (01:28→20:38)
[2020-07-02] MEDS: ACETAMINOPHEN 500 MG TAB PO SCH ×2 (02:20→05:42)
[2020-07-02] MEDS: methocarbamoL 500 MG TAB PO SCH ×2 (02:21→04:00)
[2020-07-02] MEDS: ONDANSETRON 4 MG (ODT) TAB PO PRN ×2 (06:09→20:38)
[2020-07-02] MEDS: PANTOPRAZOLE 40MG TABLET PO SCH (06:39)
[2020-07-02 07:40] LABS: Albumin 2.9 g/dL (3.4-5.0); BUN Blood Urea Nitrogen 4 mg/dL (7-18); Bicarbonate 34 mmol/L (21-32); Glucose Level 133 mg/dL (74-106); Magnesium 2.3 mg/dL (1.8-2.4); Potassium 4.1 mmol/L (3.5-5.1); Prealbumin 16.1 mg/dL (20-40); Sodium Level 139 mmol/L (136-145)
[2020-07-02 07:57] LABS: RBC Red Blood Cell Count 3.92 M/uL (3.86-4.86)
[2020-07-02 07:58] LABS: Absolute Lymphocytes (CBC) 1.7 K/uL (0.7-4.9); Basophils % 0.2 % (0-1.3); Lymphocytes % 23.7 % (15.3-44.8); MPV 7.9 fL (7.6-11.3)
[2020-07-02] MEDS: POLYETHYL GLY 3350 17 GM/DOSE PO SCH ×3 (08:00→19:25)
[2020-07-02] MEDS: NALOXEGOL 25 MG PO SCH (08:00)
[2020-07-02] MEDS: ENALAPRIL 2.5 MG TAB PO SCH ×2 (08:00→19:25)
[2020-07-02] MEDS: HYDRALAZINE HCL 10 MG TABLET PO SCH ×2 (08:00→19:25)
[2020-07-02] MEDS: methocarbamoL 500 MG TAB PO PRN ×2 (08:16→19:25)
[2020-07-02] MEDS: VITAMIN D 1000 UNIT TAB PO SCH (08:18)
[2020-07-02] MEDS: DULOXETINE 30 MG CAP PO SCH ×2 (08:18→19:25)
[2020-07-02] MEDS: GABAPENTIN 300 MG CAP PO SCH ×3 (08:19→19:25)
[2020-07-02] MEDS: DOCUSATE NA/SENNA CONC 1 TAB PO SCH ×2 (08:19→19:25)
[2020-07-02] MEDS: NICOTINE 14 MG/PAT TD SCH (08:19)
[2020-07-02] MEDS: LIDOCAINE 4% PATCH TOP SCH (08:20)
[2020-07-02] MEDS: ENOXAPARIN 40 MG/0.4 ML SQ SCH (17:41)
--- NOTE | 2020-07-02 18:16 | R.PN ---
PROGRESS NOTES ENCOUNTER DATE AND TIME: 07/02/2020 18:06 (CONTACT CENTER ASSOCIATE) NAME MARYAM INIGUEZ DATE OF : 1965 DATE OF ADMISSION: 06/30/2020 14:19 (CONTACT CENTER ASSOCIATE) (PRINCIPAL) SAGITTAL PLANE IMBALANCECHIEF COMPLAINT: Scoliosis, with broken rods. SUBJECTIVE: Pt denied any Shortness of Breath. Pt denied any depression. Ambulated 1000' with standby assistance using a rolling walker. Self-propelled wheelchair 500' with b ilateral upper and lower extremities. CBC with differential is essentially normal, prealbumin 16.1, Agricultural Adviser 0.51, UA is normal. VITAL SIGNS Temperature: 97.7 F SBP/DBP: 134/68 Pulse: 75 Resp: 16 MEDICATION ALLERGIES: ADHESIVE TAPE SILICONES COMPAZINE DEMEROL ENVIRONMENTAL ALLERGIES: - Substance Allergies None Known - Other Allergies None Known NURSING: - Shower allowing shower - Bladder care per protocol - Skin care per protocol PRECAUTIONS: - Weight Bearing Precaution Weight bearing as tolerated B LE ACTIVITIES OOB only with supervision THERAPIES: - Orthotics/Prosthetics Orthotic Evaluation. Splinting/Casting. - Dietary and Nutrition Adequate Nutrition. Nutritional Education. Nutritional Supplements. PHYSICAL EXAM - Gen Alert and awake Lying in bed No apparent distress Oriented to: person, time, and place - Skin No breakdown No numbness - Eyes No abnormalities - ENMT No abnormalities - Neck No abnormalities - CVS RRR - Chest Clear - Abd + bowel sounds - GI Non distended Deferred - No abnormalities - Ext No significant edema - MSK 4+/5 weakness in both lower extremities. - Neuro No focal deficits - Psych No abnormalities ASSESSMENT: Pt. is a 54 yo Right-handed female of unknown race.On 06/24/2020 she was admitted to 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 was independent/mod-I in Safety Awareness, Balance, and Self-Care; and she had good Endurance and Self-Care.Currently, she has defici ts of Locomotion, Balance, Transfers Control, Social Cognition, Sphincter Control, and Endurance.Pt. is now referred to [facility] for acute in-patient rehabilitation in order to maximize patient's functional independence in activities of daily living, strength, ROM, and mobility .- Rehab Goal Patient has realistic goal of being discharged at assistance level 7-Ind to reside at Home with Fami ly/Relatives. MDM/PLAN: - Physical Therapy Inability to transfer - to improve, our physical therapists will perform initial evaluation of pt's status upon admission and devise an individualized program for Bed mobility Need for home safety evaluation - to improve, our physical therapists will perform initial evaluatio n of pt's status upon admission and devise an individualized program for Home Evaluation Need in caregiver upon discharge - to improve, our physical therapists will perform initial evaluati on of pt's status upon admission and devise an individualized program for Caregiver Training New precaution - to improve, our physical therapists will perform initial evaluation of pt's status upon admission and devise an individualized program for Patient precaution education Edema - to improve, our physical therapists will perform initial evaluation of pt's status upon admis erendira and devise an individualized program for Elevation Training, and Lymphedema Therapy Poor balance - to improve, our physical therapists will perform initial evaluation of pt's status up on admission and devise an individualized program for Balance Training Poor endurance - to improve, our physical therapists will perform initial evaluation of pt's status upon admission and devise an individualized program for Endurance Training Achieving independence - to improve, our physical therapists will perform initial evaluation of pt's status upon admission and devise an individualized program for Community Reintegration Activities - Occupational Therapy Cognitive deficits - to improve, our occupation therapists will perform initial evaluation of pt's s tatus upon admission and devise an individualized program for Cognition - orientation Need for health care recruiter - to improve, our occupation therapists will perform initial evaluation of pt's status upon admission and devise an individualized program for Caregiver Training - Other See attached MAR (Medication Administration Record) - Diet Type Continue Regular - Diet - Liquid Texture Continue Regular - Tube Feed Continue N/A - Bladder care per protocol - Weight Bearing Precaution Weight bearing as tolerated B LE - Skin care per protocol - Diet - Solid Texture Continue Regular - Shower allowing shower FUNCTIONAL STATUS: UPDATED AT WEEKLY TEAM CONFERENCE - Bladder Same accident frequency: 7-Ind - No accidents in the past 7 days - Bowel Same accident frequency: 7-Ind - No accidents in the past 7 days - Walking Same score based on distance walked: 0(N/A) - Wheelchair Same score based on distance traveled: 0(N/A) FUNCTIONAL STATUS: - Self-Care A. Eating Arabella B. Grooming Arabella C. Bathing sup D. Dressing - Upper sup E. Dressing - Lower Denae F. Toileting Denae - Sphincter Control G. Bladder control Arabella H. Bowel control Arabella - Transfers Control I. Bed/Chair/Wheelchair sup J. Toilet Arabella K. Tub/Shower sup - Locomotion L. Walk/Wheelchair (B) Denae M. Stairs ADNO - Communication N. Comprehension (B) Ind O. Expression (B) Ind - Social Cognition P. Social Interaction Ind Q. Problem Solving Ind R. Memory Ind - Endurance Good - Balance Fair - Safety Awareness Good QI SCORES: - Self-Care A. Eating 06-Independent B. Oral hygiene 03-Partial/moderate assistance C. Toileting hygiene 04-Supervision or touching assistance E. Shower/bathe self 04-Supervision or touching assistance F. Upper body dressing 04-Supervision or touching assistance G. Lower body dressing 04-Supervision or touching assistance H. Putting on/taking off footwear 88-Not attempted due to medical condition or safety concerns - Mobility A. Roll left and right 04-Supervision or touching assistance B. Sit to lying 04-Supervision or touching assistance C. Lying to sitting on side of bed 04-Supervision or touching assistance D. Sit to stand 04-Supervision or touching assistance E. Chair/lxd-rm-itfbe transfer 04-Supervision or touching assistance F. Toilet transfer 04-Supervision or touching assistance G. Car transfer 88-Not attempted due to medical condition or safety concerns I. Walk 10 feet 04-Supervision or touching assistance J. Walk 50 feet with two turns 04-Supervision or touching assistance K. Walk 150 feet 04-Supervision or touching assistance L. Walking 10 feet on uneven surfaces 88-Not attempted due to medical condition or safety concerns M. 1 step (curb) 88-Not attempted due to medical condition or safety concerns N. 4 steps 88-Not attempted due to medical condition or safety concerns O. 12 steps 88-Not attempted due to medical condition or safety concerns P. Picking up object 88-Not attempted due to medical condition or safety concerns R. Wheel 50 feet with two turns 88-Not attempted due to medical condition or safety concerns S. Wheel 150 feet 88-Not attempted due to medical condition or safety concerns - Bladder and Bowel Bladder continence Bowel continence - Endurance Good - Balance Good - Safety Awareness Good CURRENT [facility]. DEFICITS: Mobility and Self-Care SIGNATURE PANEL: (CONTACT CENTER ASSOCIATE)
--- NOTE | 2020-07-02 20:47 | P.PN ---
Subjective Date of Service: 07/02/20 Chief Complaint: SPINE SURGERY WENT DOWN TO SMOKE. COULD NOT FIND HER ON THE FLOOR. Physical Examination - Vital Signs Temperature: 97.4 F Blood Pressure: 119/71 Pulse: 74 Respirations: 16 Pulse Ox (%): 97 - Studies Laboratory Data (last 24 hrs) 07/02/20 07:14: Sodium 139, Potassium 4.1, BUN 4 L, Creatinine 0.51 L, Glucose 133 H, Magnesium 2.3 07/02/20 07:14: WBC 7.40, Hgb 11.9 L, Hct 36.0, Plt Count 238 Microbiology Data (last 24 hrs): 06/30/20 15:00 Clean Catch Urine [place] Count - Final BETWEEN 10,000 & 100,000 CFU/ML 06/30/20 15:00 Clean Catch Urine - Final MIXED GARY. Assessment And Plan - Current Problems (Diagnosis) (1) Encounter for orthopedic aftercare following scoliosis surgery Current Visit: Yes Status: Chronic Plan: REHAB TO GET STRONGER. SHE STILL SMOKES AND GOES DOWN TO SMOKE. (2) Morbid obesity with BMI of 40.0-44.9, adult Current Visit: No Status: Chronic Plan: NOT ABLE TO LOSE WEIGHT DESPITE ADVISE AND INSTRUCTIONS .
[2020-07-02] MEDS: ACETAMINOPHEN 500 MG TAB PO PRN (21:45)
[2020-07-03] MEDS: MORPHINE 15 MG IR TAB PO PRN ×6 (02:17→21:52)
[2020-07-03] MEDS: methocarbamoL 500 MG TAB PO PRN ×4 (03:00→21:04)
[2020-07-03] MEDS: PANTOPRAZOLE 40MG TABLET PO SCH (06:26)
[2020-07-03] MEDS: ACETAMINOPHEN 500 MG TAB PO PRN ×2 (06:42→21:04)
[2020-07-03] MEDS: LIDOCAINE 4% PATCH TOP SCH (08:00)
[2020-07-03] MEDS: HYDRALAZINE HCL 10 MG TABLET PO SCH ×2 (08:00→19:03)
[2020-07-03] MEDS: POLYETHYL GLY 3350 17 GM/DOSE PO SCH ×2 (08:00→19:04)
[2020-07-03] MEDS: DULOXETINE 30 MG CAP PO SCH ×2 (08:00→09:35)
[2020-07-03] MEDS: NALOXEGOL 25 MG PO SCH (08:00)
[2020-07-03] MEDS: ENALAPRIL 2.5 MG TAB PO SCH ×2 (08:00→19:04)
[2020-07-03] MEDS: VITAMIN D 1000 UNIT TAB PO SCH (09:10)
[2020-07-03] MEDS: GABAPENTIN 300 MG CAP PO SCH ×3 (09:10→21:04)
[2020-07-03] MEDS: DOCUSATE NA/SENNA CONC 1 TAB PO SCH ×2 (09:11→21:03)
[2020-07-03] MEDS: methylPREDNISolone 4 MG TAB PO SCH (09:30)
--- NOTE | 2020-07-03 09:40 | P.RH.PN ---
Estimated Length of Stay: 11 Expected Discharge Date: 07/10/20 Discharge Disposition Plan: Home Family Support: Yes Vital Signs: Last Vital Signs Temp 97.4 F 07/02/20 20:46 Pulse 74 07/02/20 20:46 Resp 16 07/03/20 09:05 BP 119/71 07/02/20 20:46 Pulse Ox 97 07/03/20 09:05 Laboratory: Laboratory Last Values WBC 7.40 K/uL (4.3-10.9) 07/02/20 07:14 RBC 3.92 M/uL (3.86-4.86) 07/02/20 07:14 Hgb 11.9 g/dL (12.0-15.0) L 07/02/20 07:14 Hct 36.0 % (36.0-45.0) 07/02/20 07:14 MCV 91.9 fL (80-100) 07/02/20 07:14 MCH 30.4 pg (27.0-35.0) 07/02/20 07:14 MCHC 33.0 g/dL (32.0-36.0) 07/02/20 07:14 RDW 14.1 % (12.1-15.2) 07/02/20 07:14 Plt Count 238 K/uL (152-406) 07/02/20 07:14 MPV 7.9 fL (7.6-11.3) 07/02/20 07:14 Neutrophils % 63.3 % (41.7-73.7) 07/02/20 07:14 Lymphocytes % 23.7 % (15.3-44.8) 07/02/20 07:14 Monocytes % 8.5 % (3.3-12.3) 07/02/20 07:14 Eosinophils % 4.3 % (0-4.4) 07/02/20 07:14 Basophils % 0.2 % (0-1.3) 07/02/20 07:14 Absolute Neutrophils 4.7 K/uL (1.8-8.0) 07/02/20 07:14 Absolute Lymphocytes 1.7 K/uL (0.7-4.9) 07/02/20 07:14 Absolute Monocytes 0.6 K/uL (0.1-1.3) 07/02/20 07:14 Absolute Eosinophils 0.3 K/uL (0-0.5) 07/02/20 07:14 Absolute Basophils 0.0 K/uL (0-0.5) 07/02/20 07:14 Sodium 139 mmol/L (136-145) 07/02/20 07:14 Potassium 4.1 mmol/L (3.5-5.1) 07/02/20 07:14 Chloride 102 mmol/L (98-107) 07/02/20 07:14 Carbon Dioxide 34 mmol/L (21-32) H 07/02/20 07:14 BUN 4 mg/dL (7-18) L 07/02/20 07:14 Creatinine 0.51 mg/dL (0.55-1.3) L 07/02/20 07:14 Estimated GFR > 90 mL/min (=/>90) 07/02/20 07:14 Glucose 133 mg/dL (74-106) H 07/02/20 07:14 Calcium 8.8 mg/dL (8.5-10.1) 07/02/20 07:14 Magnesium 2.3 mg/dL (1.8-2.4) 07/02/20 07:14 Albumin 2.9 g/dL (3.4-5.0) L 07/02/20 07:14 Prealbumin 16.1 mg/dL (20-40) L 07/02/20 07:14 Urine Color Yellow 06/30/20 15:00 Urine Appearance Clear 06/30/20 15:00 Urine pH 6.5 (5.0-7.0) 06/30/20 15:00 Ur Specific [place] <=1.005 (1.005-1.030) 06/30/20 15:00 Glucose (UA)(Auto) Negative (NEG) 06/30/20 15:00 Urine Ketones Negative (NEG) 06/30/20 15:00 Urine Blood Negative (NEG) 06/30/20 15:00 Urine Nitrite Negative (NEG) 06/30/20 15:00 Urine Bilirubin Negative (NEG) 06/30/20 15:00 Urine Urobilinogen 1.0 mg/dL (0.2-1.0) 06/30/20 15:00 Ur Leukocyte Esterase Negative (NEG) 06/30/20 15:00 Urine RBC None seen /HPF (NONE SEEN) 06/30/20 15:00 Urine WBC <5 /HPF (<5) 06/30/20 15:00 Ur Squamous Epith Cells <5 /HPF (NONE SEEN) 06/30/20 15:00 Urine Bacteria <20 /HPF (<20) 06/30/20 15:00 Urine Culture Reflexed Not needed 06/30/20 15:00 Urine Total Protein Negative (NEG) 06/30/20 15:00 SARS-CoV-2 RNA (RT-PCR) Negative (NEGATIVE) 06/30/20 16:00 Weight: 259 lb Closed Surgical Incision Present: Yes Physician Update: Labs reviewed and are stable. Walking 250' standby assistance, transfers are stanby. Moderate assistance with occupation therapy. She follows spinal precautions well. Summary: Patient's care plan and rat exterminator goals have been reviewed and revised as necessary. Please see the Rehabilitation Signature page for all necessary signatures.
[2020-07-03] MEDS: SUMATRIPTAN SUCCI 50 MG TAB PO SCH (10:29)
[2020-07-03] MEDS: NICOTINE 14 MG/PAT TD SCH (12:48)
[2020-07-03] MEDS: ENOXAPARIN 40 MG/0.4 ML SQ SCH ×2 (17:14→18:30)
--- NOTE | 2020-07-03 17:20 | P.PN ---
Subjective Date of Service: 07/03/20 Chief Complaint: SPINE SURGERY Subjective: C/O voiced WENT DOWN TO SMOKE. COULD NOT FIND HER ON THE FLOOR. SPASMS R LEG, FROM BACK HEADACHES, MIGRAINES. HAS TOO MUCH STRESS, 3 FRIENDS AND SON HAS SOME ISSUES. Review of Systems 10-point ROS is otherwise unremarkable General: Weakness, Malaise Musculoskeletal: Back Pain, As per HPI Physical Examination - Vital Signs Temperature: 97.8 F Blood Pressure: 112/56 Pulse: 89 Respirations: 16 Pulse Ox (%): 97 - Physical Exam General: Mild distress, Moderate distress, Obese HEENT: Atraumatic, PERRLA, EOMI Neck: Supple, JVD not distended Respiratory: Clear to auscultation bilaterally, Normal air movement Cardiovascular: Regular rate/rhythm, Normal S1 S2 Gastrointestinal: Normal bowel sounds, No tenderness Musculoskeletal: No tenderness, Scoliosis (SEVERE SPINE ISSSUES.), Other Integumentary: No rashes Neurological: Normal speech, Normal tone, Normal affect Lymphatics: No axilla or inguinal lymphadenopathy - Studies Medications List Reviewed: Yes Assessment And Plan - Current Problems (Diagnosis) (1) Encounter for orthopedic aftercare following scoliosis surgery Current Visit: Yes Status: Chronic Plan: REHAB TO GET STRONGER. SHE STILL SMOKES AND GOES DOWN TO SMOKE. MEDROL DOSE PACK MAY HELP EDEMA IN THE REGION. WILL START MUSCLE RELAXER. COTINUE PT (2) Morbid obesity with BMI of 40.0-44.9, adult Current Visit: No Status: Chronic Plan: NOT ABLE TO LOSE WEIGHT DESPITE ADVISE AND INSTRUCTIONS . (3) Migraine Current Visit: Yes Status: Acute Plan: R SIDE HEADACHES WITH NAUSE AND PHOTOPHOBIA. HAS ALL MIGRAINE CHARACTERS. TRIAL OF [place]. DR. CANCINO ON THE CASE.
[2020-07-04] MEDS: MORPHINE 15 MG IR TAB PO PRN ×6 (01:17→22:39)
[2020-07-04] MEDS: HYDRALAZINE HCL 10 MG TABLET PO SCH ×2 (06:45→19:22)
[2020-07-04] MEDS: LIDOCAINE 4% PATCH TOP SCH (06:45)
[2020-07-04] MEDS: NALOXEGOL 25 MG PO SCH (06:46)
[2020-07-04] MEDS: ENALAPRIL 2.5 MG TAB PO SCH ×2 (06:46→19:22)
[2020-07-04] MEDS: PANTOPRAZOLE 40MG TABLET PO SCH (06:48)
[2020-07-04] MEDS: methocarbamoL 500 MG TAB PO PRN (06:50)
[2020-07-04] MEDS: SUMATRIPTAN SUCCI 50 MG TAB PO SCH (08:00)
[2020-07-04] MEDS: VITAMIN D 1000 UNIT TAB PO SCH (08:20)
[2020-07-04] MEDS: GABAPENTIN 300 MG CAP PO SCH ×3 (08:20→19:21)
[2020-07-04] MEDS: DOCUSATE NA/SENNA CONC 1 TAB PO SCH ×2 (08:21→19:22)
[2020-07-04] MEDS: POLYETHYL GLY 3350 17 GM/DOSE PO SCH ×2 (08:21→19:22)
[2020-07-04] MEDS: DULOXETINE 30 MG CAP PO SCH ×3 (08:21→19:21)
[2020-07-04] MEDS: NICOTINE 14 MG/PAT TD SCH (08:21)
[2020-07-04] MEDS: methylPREDNISolone 4 MG TAB PO SCH (12:14)
--- NOTE | 2020-07-04 15:13 | FAST ---
QUALITY [employer] FORM SHIFT START DATE/TIME: 07/04/2020 07:00 (PURCHASING/RECEIVING) SHIFT END DATE/TIME: 07/04/2020 19:00 (PURCHASING/RECEIVING) NAME MARYAM INIGUEZ DATE OF : 1965 DATE OF ADMISSION: 06/30/2020 14:19 (PURCHASING/RECEIVING) PHONE: AGE: 54 N# [id number] GENDER: Female ENCOUNTER PHYSICIAN: Dr. Paco Brizuela M.D. 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 EATING: EATING - STEP 1: Does the patient complete the activity by him/herself with no assistance (physical, verbal/nonverbal cueing, setup/clean-up)? No. EATING - STEP 2: Does the patient need only setup/clean-up assistance from one helper? Yes. 1. [id number] ADMISSION PERFORMANCE: Setup or clean-up assistance CODE: 05 ORAL HYGIENE: ORAL HYGIENE - STEP 1: Does the patient complete the activity by him/herself with no assistance (physical, verbal/nonverbal cueing, setup/clean-up)? Yes. 1. [id number] ADMISSION PERFORMANCE: Independent CODE: 06 TOILETING HYGIENE: TOILETING HYGIENE - STEP 1: Does the patient complete the activity by him/herself with no assistance (physical, verbal/nonverbal cueing, setup/clean-up)? No. TOILETING HYGIENE - STEP 2: Does the patient need only setup/clean-up assistance from one helper? Yes. 1. [id number] ADMISSION PERFORMANCE: Setup or clean-up assistance CODE: 05 BATHING: Not assessed/no information CODE: - DRESSING - UPPER BODY: DRESSING - UPPER BODY - STEP 1: Does the patient complete the activity by him/herself with no assistance (physical, verbal/nonverbal cueing, setup/clean-up)? No. DRESSING - UPPER BODY - STEP 2: Does the patient need only setup/clean-up assistance from one helper? No. DRESSING - UPPER BODY - STEP 3: Does the patient need only verbal/nonverbal cueing or touching/steadying/contact guard assistance fro m one helper? Yes. 1. [id number] ADMISSION PERFORMANCE: Supervision or touching assistance CODE: 04 DRESSING - LOWER BODY: DRESSING - LOWER BODY - STEP 1: Does the patient complete the activity by him/herself with no assistance (physical, verbal/nonverbal cueing, setup/clean-up)? No. DRESSING - LOWER BODY - STEP 2: Does the patient need only setup/clean-up assistance from one helper? No. DRESSING - LOWER BODY - STEP 3: Does the patient need only verbal/nonverbal cueing or touching/steadying/contact guard assistance fro m one helper? Yes. 1. [id number] ADMISSION PERFORMANCE: Supervision or touching assistance CODE: 04 PUTTING ON/TAKING OFF FOOTWEAR: FOOTWEAR - STEP 1: Does the patient complete the activity by him/herself with no assistance (physical, verbal/nonverbal cueing, setup/clean-up)? No. FOOTWEAR - STEP 2: Does the patient need only setup/clean-up assistance from one helper? No. FOOTWEAR - STEP 3: Does the patient need only verbal/nonverbal cueing or touching/steadying/contact guard assistance fro m one helper? Yes. 1. [id number] ADMISSION PERFORMANCE: Supervision or touching assistance CODE: 04 ROLL LEFT AND RIGHT: ROLL LEFT AND RIGHT - STEP 1: Does the patient complete the activity by him/herself with no assistance (physical, verbal/nonverbal cueing, setup/clean-up)? No. ROLL LEFT AND RIGHT - STEP 2: Does the patient need only setup/clean-up assistance from one helper? No. ROLL LEFT AND RIGHT - STEP 3: Does the patient need only verbal/nonverbal cueing or touching/steadying/contact guard assistance fro m one helper? Yes. 1. [id number] ADMISSION PERFORMANCE: Supervision or touching assistance CODE: 04 SIT TO LYING: SIT TO LYING - STEP 1: Does the patient complete the activity by him/herself with no assistance (physical, verbal/nonverbal cueing, setup/clean-up)? No. SIT TO LYING - STEP 2: Does the patient need only setup/clean-up assistance from one helper? No. SIT TO LYING - STEP 3: Does the patient need only verbal/nonverbal cueing or touching/steadying/contact guard assistance fro m one helper? No. SIT TO LYING - STEP 4: Does the patient need physical assistance - for example lifting or trunk support from one helper - wi th the helper providing less than half of the effort? Yes. 1. [id number] ADMISSION PERFORMANCE: Partial/moderate assistance CODE: 03 LYING TO SITTING: LYING TO SITTING ON SIDE OF BED - STEP 1: Does the patient complete the activity by him/herself with no assistance (physical, verbal/nonverbal cueing, setup/clean-up)? No. LYING TO SITTING ON SIDE OF BED - STEP 2: Does the patient need only setup/clean-up assistance from one helper? No. LYING TO SITTING ON SIDE OF BED - STEP 3: Does the patient need only verbal/nonverbal cueing or touching/steadying/contact guard assistance fro m one helper? No. LYING TO SITTING ON SIDE OF BED - STEP 4: Does the patient need physical assistance - for example lifting or trunk support from one helper - wi th the helper providing less than half of the effort? Yes. 1. [id number] ADMISSION PERFORMANCE: Partial/moderate assistance CODE: 03 SIT TO STAND: SIT TO STAND - STEP 1: Does the patient complete the activity by him/herself with no assistance (physical, verbal/nonverbal cueing, setup/clean-up)? No. SIT TO STAND - STEP 2: Does the patient need only setup/clean-up assistance from one helper? No. SIT TO STAND - STEP 3: Does the patient need only verbal/nonverbal cueing or touching/steadying/contact guard assistance fro m one helper? Yes. 1. [id number] ADMISSION PERFORMANCE: Supervision or touching assistance CODE: 04 TRANSFERS: BED, CHAIR: CHAIR/[id number] TRANSFER - STEP 1: Does the patient complete the activity by him/herself with no assistance (physical, verbal/nonverbal cueing, setup/clean-up)? No. CHAIR/[id number] TRANSFER - STEP 2: Does the patient need only setup/clean-up assistance from one helper? No. CHAIR/[id number] TRANSFER - STEP 3: Does the patient need only verbal/nonverbal cueing or touching/steadying/contact guard assistance fro m one helper? Yes. 1. [id number] ADMISSION PERFORMANCE: Supervision or touching assistance CODE: 04 TRANSFER TOILET: TOILET TRANSFER - STEP 1: Does the patient complete the activity by him/herself with no assistance (physical, verbal/nonverbal cueing, setup/clean-up)? No. TOILET TRANSFER - STEP 2: Does the patient need only setup/clean-up assistance from one helper? No. TOILET TRANSFER - STEP 3: Does the patient need only verbal/nonverbal cueing or touching/steadying/contact guard assistance fro m one helper? Yes. 1. [id number] ADMISSION PERFORMANCE: Supervision or touching assistance CODE: 04 TRANSFERS: CAR: Not assessed/no information CODE: - WALK 10 FEET: Not assessed/no information CODE: - 1 STEP (CURB): Not assessed/no information CODE: - PICKING UP OBJECT: Not assessed/no information CODE: - DOES THE PATIENT USE A WHEELCHAIR/SCOOTER? Q1. DOES THE PATIENT USE A WHEELCHAIR/SCOOTER?: Yes CODE: 1 WHEEL 50 FEET WITH TWO TURNS: WHEEL 50 FEET WITH TWO TURNS - STEP 1: Does the patient complete the activity by him/herself with no assistance (physical, verbal/nonverbal cueing, setup/clean-up)? No. WHEEL 50 FEET WITH TWO TURNS - STEP 2: Does the patient need only setup/clean-up assistance from one helper? No. WHEEL 50 FEET WITH TWO TURNS - STEP 3: Does the patient need only verbal/nonverbal cueing or touching/steadying/contact guard assistance fro m one helper? No. WHEEL 50 FEET WITH TWO TURNS - STEP 4: Does the patient need physical assistance - for example lifting or trunk support from one helper - wi th the helper providing less than half of the effort? Yes. 1. [id number] ADMISSION PERFORMANCE: Partial/moderate assistance CODE: 03 INDICATE THE TYPE OF WHEELCHAIR/SCOOTER USED: RR1. INDICATE THE TYPE OF WHEELCHAIR/SCOOTER USED.: Manual CODE: 1 WHEEL 150 FEET: WHEEL 150 FEET - STEP 1: Does the patient complete the activity by him/herself with no assistance (physical, verbal/nonverbal cueing, setup/clean-up)? No. WHEEL 150 FEET - STEP 2: Does the patient need only setup/clean-up assistance from one helper? No. WHEEL 150 FEET - STEP 3: Does the patient need only verbal/nonverbal cueing or touching/steadying/contact guard assistance fro m one helper? No. WHEEL 150 FEET - STEP 4: Does the patient need physical assistance - for example lifting or trunk support from one helper - wi th the helper providing less than half of the effort? Yes. 1. [id number] ADMISSION PERFORMANCE: Partial/moderate assistance CODE: 03 INDICATE THE TYPE OF WHEELCHAIR/SCOOTER USED: SS1. INDICATE THE TYPE OF WHEELCHAIR/SCOOTER USED.: Manual CODE: 1 BLADDER AND BOWEL: H350. BLADDER CONTINENCE (3-DAY ASSESSMENT PERIOD): Always continent (no documented incontinence) CODE: 0 H400. BOWEL CONTINENCE (3-DAY ASSESSMENT PERIOD): Always continent CODE: 0 SIGNATURE PANEL: The following modified sections: 1. [id number] Admission Performance, 1. [id number] Admission Performance, 1. [id number] Admission Performance, 1. [id number] Admission Performance, 1. FI2895e Admission Performance, 1. BR3859u Admission Performance, 1. [id number] Admission Performance, 1. [id number] Admission Performance , 1. [id number] Admission Performance, 1. [id number] Admission Performance, 1. [id number] Admission Performanc e, 1. [id number] Admission Performance, 1. [id number] Admission Performance, 1. [id number] Admission Performan ce, 1. [id number] Admission Performance, 1. [id number] Admission Performance, Q1. Does the patient use a wh eelchair/scooter?, 1. [id number] Admission Performance, RR1. Indicate the type of wheelchair/scooter use d., 1. [id number] Admission Performance, Code, SS1. Indicate the type of wheelchair/scooter used., 1. [id number] Admission Performance, Code, H350. Bladder Continence (3-day assessment period), H400. Bowel Co ntinence (3-day assessment period) were [electronically] signed by Malka ManningNGerard on MonJul 04 2020 15:11:57 GMT-0600 (Central Standard Time)
--- NOTE | 2020-07-04 16:36 | P.PN ---
Subjective Date of Service: 07/04/20 Chief Complaint: SPINE SURGERY Subjective: Improving WENT DOWN TO SMOKE. COULD NOT FIND HER ON THE FLOOR. SPASMS R LEG, FROM BACK HEADACHES, MIGRAINES. HAS TOO MUCH STRESS, 3 FRIENDS AND SON HAS SOME ISSUES. SHE HAS SEVERE BURNING BACK PAIN SINCE SURGERY. HER HEADACHES ARE BETTER. SHE IS ON DULOXETIN BID. Physical Examination - Vital Signs Temperature: 97.6 F Blood Pressure: 116/68 Pulse: 74 Respirations: 16 Pulse Ox (%): 95 - Physical Exam General: Moderate distress, Obese HEENT: Atraumatic, PERRLA, EOMI Neck: Supple, JVD not distended Respiratory: Clear to auscultation bilaterally, Normal air movement Cardiovascular: Regular rate/rhythm, Normal S1 S2 Gastrointestinal: Normal bowel sounds, No tenderness Musculoskeletal: No tenderness, Scoliosis (COMPLICATED SURGERIES.) Integumentary: No rashes Neurological: Normal speech, Normal tone, Normal affect Lymphatics: No axilla or inguinal lymphadenopathy - Studies Medications List Reviewed: Yes Assessment And Plan - Current Problems (Diagnosis) (1) Encounter for orthopedic aftercare following scoliosis surgery Current Visit: Yes Status: Chronic Plan: REHAB TO GET STRONGER. SHE STILL SMOKES AND GOES DOWN TO SMOKE. MEDROL DOSE PACK MAY HELP EDEMA IN THE REGION. WILL START MUSCLE RELAXER. COTINUE PT AIR MATTRESS IS NOT COMFORTABLE FOR PATIENTS WITH BACK ISSUES. SHE HAS FIRM MATTRESS AT HOME. (2) Morbid obesity with BMI of 40.0-44.9, adult Current Visit: No Status: Chronic Plan: NOT ABLE TO LOSE WEIGHT DESPITE ADVISE AND INSTRUCTIONS . (3) Migraine Current Visit: Yes Status: Acute Plan: R SIDE HEADACHES WITH NAUSE AND PHOTOPHOBIA. HAS ALL MIGRAINE CHARACTERS. TRIAL OF [place]. DR. CANCINO ON THE CASE.
[2020-07-04] MEDS: ENOXAPARIN 40 MG/0.4 ML SQ SCH (16:53)
[2020-07-05] MEDS: MORPHINE 15 MG IR TAB PO PRN ×4 (03:09→21:11)
[2020-07-05] MEDS: PANTOPRAZOLE 40MG TABLET PO SCH (06:30)
[2020-07-05] MEDS: GABAPENTIN 300 MG CAP PO SCH ×3 (07:39→21:08)
[2020-07-05] MEDS: DULOXETINE 30 MG CAP PO SCH ×2 (07:40→21:08)
[2020-07-05] MEDS: DOCUSATE NA/SENNA CONC 1 TAB PO SCH (07:40)
[2020-07-05] MEDS: VITAMIN D 1000 UNIT TAB PO SCH (07:40)
[2020-07-05] MEDS: methylPREDNISolone 4 MG TAB PO SCH (08:00)
[2020-07-05] MEDS: ENALAPRIL 2.5 MG TAB PO SCH ×2 (08:00→20:00)
[2020-07-05] MEDS: HYDRALAZINE HCL 10 MG TABLET PO SCH ×2 (08:00→20:00)
[2020-07-05] MEDS: NALOXEGOL 25 MG PO SCH (08:00)
[2020-07-05] MEDS: POLYETHYL GLY 3350 17 GM/DOSE PO SCH ×2 (08:00→20:00)
[2020-07-05] MEDS: LIDOCAINE 4% PATCH TOP SCH (08:00)
[2020-07-05] MEDS: SUMATRIPTAN SUCCI 50 MG TAB PO SCH (08:00)
[2020-07-05] MEDS: methocarbamoL 500 MG TAB PO PRN ×2 (10:53→23:17)
--- NOTE | 2020-07-05 11:24 | P.PN ---
Subjective Date of Service: 07/05/20 Chief Complaint: SPINE SURGERY Subjective: Improving WENT DOWN TO SMOKE. COULD NOT FIND HER ON THE FLOOR. SPASMS R LEG, FROM BACK HEADACHES, MIGRAINES. HAS TOO MUCH STRESS, 3 FRIENDS AND SON HAS SOME ISSUES. SHE HAS SEVERE BURNING BACK PAIN SINCE SURGERY. HER HEADACHES ARE BETTER. SHE IS ON DULOXETIN BID. Review of Systems 10-point ROS is otherwise unremarkable General: Weakness Musculoskeletal: Back Pain Physical Examination - Vital Signs Temperature: 98 F Blood Pressure: 118/64 Pulse: 58 Respirations: 18 Pulse Ox (%): 99 - Physical Exam General: Oriented x3, Moderate distress, Obese HEENT: Atraumatic, PERRLA, EOMI Neck: Supple, JVD not distended Respiratory: Clear to auscultation bilaterally, Normal air movement Cardiovascular: Regular rate/rhythm, Normal S1 S2 Gastrointestinal: Normal bowel sounds, No tenderness Musculoskeletal: No tenderness Integumentary: No rashes Neurological: Normal speech, Normal tone, Normal affect Lymphatics: No axilla or inguinal lymphadenopathy - Studies Medications List Reviewed: Yes Assessment And Plan - Current Problems (Diagnosis) (1) Encounter for orthopedic aftercare following scoliosis surgery Current Visit: Yes Status: Chronic Plan: REHAB TO GET STRONGER. SHE STILL SMOKES AND GOES DOWN TO SMOKE. MEDROL DOSE PACK MAY HELP EDEMA IN THE REGION. WILL START MUSCLE RELAXER. COTINUE PT AIR MATTRESS IS NOT COMFORTABLE FOR PATIENTS WITH BACK ISSUES. SHE HAS FIRM MATTRESS AT HOME. (2) Morbid obesity with BMI of 40.0-44.9, adult Current Visit: No Status: Chronic Plan: NOT ABLE TO LOSE WEIGHT DESPITE ADVISE AND INSTRUCTIONS . I ASKED HER TO ORDER WEIGHT LOSS PROBIOTIC, PREBIOTIC AND BUTYRATE FORMULA FROM DR. GARCIA TO HELP LOSE WEIGHT. I SEE ÁLVARO AND MARICRUZ ON TABLE. I HAVE ADVISED PALEO DIET FOR THE WHOLE FAMILY BEFORE. (3) Migraine Current Visit: Yes Status: Acute Plan: R SIDE HEADACHES WITH NAUSE AND PHOTOPHOBIA. HAS ALL MIGRAINE CHARACTERS. TRIAL OF [place]. DR. CANCINO ON THE CASE. (4) Constipation Current Visit: Yes Status: Chronic Plan: SHE ALATORRE SNOT LIKE MIRALAX. SENOKOT IS NOT WORKING. CHANGE TO MOM AND GLYCERINE SUPPOSTORY PRN.
[2020-07-05] MEDS: MAGNESIUM HYDROXIDE 8% 30 ML PO PRN (12:12)
[2020-07-05] MEDS: NICOTINE 14 MG/PAT TD SCH (15:52)
[2020-07-05] MEDS: ENOXAPARIN 40 MG/0.4 ML SQ SCH (16:58)
[2020-07-06] MEDS: MORPHINE 15 MG IR TAB PO PRN ×5 (03:49→21:11)
[2020-07-06] MEDS: PANTOPRAZOLE 40MG TABLET PO SCH (06:40)
[2020-07-06 07:54] LABS: BUN Blood Urea Nitrogen 10 mg/dL (7-18); Bicarbonate 32 mmol/L (21-32); Glucose Level 86 mg/dL (74-106); Sodium Level 139 mmol/L (136-145)
[2020-07-06] MEDS: GLYCERIN ADULT SUPP PR SCH (08:00)
[2020-07-06] MEDS: POLYETHYL GLY 3350 17 GM/DOSE PO SCH ×2 (08:00→19:14)
[2020-07-06] MEDS: LIDOCAINE 4% PATCH TOP SCH (08:00)
[2020-07-06] MEDS: HYDRALAZINE HCL 10 MG TABLET PO SCH ×2 (08:00→18:22)
[2020-07-06] MEDS: ENALAPRIL 2.5 MG TAB PO SCH ×2 (08:00→18:23)
[2020-07-06] MEDS: NALOXEGOL 25 MG PO SCH (08:00)
[2020-07-06] MEDS: SUMATRIPTAN SUCCI 50 MG TAB PO SCH (08:00)
[2020-07-06] MEDS: GABAPENTIN 300 MG CAP PO SCH ×3 (08:07→19:14)
[2020-07-06] MEDS: DULOXETINE 30 MG CAP PO SCH ×2 (08:07→19:14)
[2020-07-06] MEDS: VITAMIN D 1000 UNIT TAB PO SCH (08:08)
[2020-07-06] MEDS: MAGNESIUM HYDROXIDE 8% 30 ML PO PRN (08:10)
[2020-07-06] MEDS: methocarbamoL 500 MG TAB PO PRN ×3 (08:12→20:28)
[2020-07-06 08:26] LABS: Potassium 4.5 mmol/L (3.5-5.1)
[2020-07-06 09:00] LABS: Absolute Lymphocytes (CBC) 3.1 K/uL (0.7-4.9); Basophils % 0.2 % (0-1.3); Lymphocytes % 37.1 % (15.3-44.8); MPV 7.9 fL (7.6-11.3); RBC Red Blood Cell Count 3.93 M/uL (3.86-4.86)
[2020-07-06] MEDS: NICOTINE 14 MG/PAT TD SCH (09:57)
[2020-07-06] MEDS: ENOXAPARIN 40 MG/0.4 ML SQ SCH (17:23)
[2020-07-06] MEDS: MAGNESIUM OXIDE 400 MG TAB PO SCH (19:14)
--- NOTE | 2020-07-06 19:17 | R.PN ---
PROGRESS NOTES ENCOUNTER DATE AND TIME: 07/06/2020 19:13 (CDT) NAME MARYAM INIGUEZ DATE OF : 1965 DATE OF ADMISSION: 06/30/2020 14:19 (THERAPY ASSISTANT) (PRINCIPAL) SAGITTAL PLANE IMBALANCECHIEF COMPLAINT: Scoliosis, with broken rods. SUBJECTIVE: Pt denied any Shortness of Breath. Pt denied any depression. Ambulated 3000' with standby assistance using a rolling walker. Self-propelled wheelchair 250' with b ilateral upper and lower extremities and modified independence. CBC with differential is normal, prealbumin 16.1, Day Worker 0.52, UA is normal. VITAL SIGNS Temperature: 97.5 F SBP/DBP: 148/81 Pulse: 65 Resp: 16 MEDICATION ALLERGIES: ADHESIVE TAPE SILICONES COMPAZINE DEMEROL ENVIRONMENTAL ALLERGIES: - Substance Allergies None Known - Other Allergies None Known NURSING: - Shower allowing shower - Bladder care per protocol - Skin care per protocol PRECAUTIONS: - Weight Bearing Precaution Weight bearing as tolerated B LE ACTIVITIES OOB only with supervision THERAPIES: - Orthotics/Prosthetics Orthotic Evaluation. Splinting/Casting. - Dietary and Nutrition Adequate Nutrition. Nutritional Education. Nutritional Supplements. PHYSICAL EXAM - Gen Alert and awake Lying in bed No apparent distress Oriented to: person, time, and place - Skin No breakdown No numbness - Eyes No abnormalities - ENMT No abnormalities - Neck No abnormalities - CVS RRR - Chest Clear - Abd + bowel sounds - GI Non distended Deferred - No abnormalities - Ext No significant edema - MSK 4+/5 weakness in both lower extremities. - Neuro No focal deficits - Psych No abnormalities ASSESSMENT: Pt. 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 was independent/mod-I in Safety Awareness, Balance, and Self-Care; and she had good Endurance and Self-Care.Currently, she has defici ts of Locomotion, Balance, Transfers Control, Social Cognition, Sphincter Control, and Endurance.Pt. is now referred to [facility] for acute in-patient rehabilitation in order to maximize patient's functional independence in activities of daily living, strength, ROM, and mobility .- Rehab Goal Patient has realistic goal of being discharged at assistance level 7-Ind to reside at Home with Fami ly/Relatives. MDM/PLAN: - Physical Therapy Inability to transfer - to improve, our physical therapists will perform initial evaluation of pt's status upon admission and devise an individualized program for Bed mobility Need for home safety evaluation - to improve, our physical therapists will perform initial evaluatio n of pt's status upon admission and devise an individualized program for Home Evaluation Need in caregiver upon discharge - to improve, our physical therapists will perform initial evaluati on of pt's status upon admission and devise an individualized program for Caregiver Training New precaution - to improve, our physical therapists will perform initial evaluation of pt's status upon admission and devise an individualized program for Patient precaution education Edema - to improve, our physical therapists will perform initial evaluation of pt's status upon admi ssion and devise an individualized program for Elevation Training, and Lymphedema Therapy Poor balance - to improve, our physical therapists will perform initial evaluation of pt's status up on admission and devise an individualized program for Balance Training Poor endurance - to improve, our physical therapists will perform initial evaluation of pt's status upon admission and devise an individualized program for Endurance Training Achieving independence - to improve, our physical therapists will perform initial evaluation of pt's status upon admission and devise an individualized program for Community Reintegration Activities - Occupational Therapy Cognitive deficits - to improve, our occupation therapists will perform initial evaluation of pt's s tatus upon admission and devise an individualized program for Cognition - orientation Need for healthcare science specialist - to improve, our occupation therapists will perform initial evaluation of pt's status upon admission and devise an individualized program for Caregiver Training - Other See attached MAR (Medication Administration Record) - Diet Type Continue Regular - Diet - Liquid Texture Continue Regular - Tube Feed Continue N/A - Bladder care per protocol - Weight Bearing Precaution Weight bearing as tolerated B LE - Skin care per protocol - Diet - Solid Texture Continue Regular - Shower allowing shower FUNCTIONAL STATUS: UPDATED AT WEEKLY TEAM CONFERENCE - Bladder Same accident frequency: 7-Ind - No accidents in the past 7 days - Bowel Same accident frequency: 7-Ind - No accidents in the past 7 days - Walking Same score based on distance walked: 0(N/A) - Wheelchair Same score based on distance traveled: 0(N/A) FUNCTIONAL STATUS: - Self-Care A. Eating Arabella B. Grooming Arabella C. Bathing sup D. Dressing - Upper sup E. Dressing - Lower Denae F. Toileting Denae - Sphincter Control G. Bladder control Arabella H. Bowel control Arabella - Transfers Control I. Bed/Chair/Wheelchair sup J. Toilet Arabella K. Tub/Shower sup - Locomotion L. Walk/Wheelchair (B) Denae M. Stairs ADNO - Communication N. Comprehension (B) Ind O. Expression (B) Ind - Social Cognition P. Social Interaction Ind Q. Problem Solving Ind R. Memory Ind - Endurance Good - Balance Fair - Safety Awareness Good QI SCORES: - Self-Care A. Eating 06-Independent B. Oral hygiene 03-Partial/moderate assistance C. Toileting hygiene 04-Supervision or touching assistance E. Shower/bathe self 04-Supervision or touching assistance F. Upper body dressing 04-Supervision or touching assistance G. Lower body dressing 04-Supervision or touching assistance H. Putting on/taking off footwear 88-Not attempted due to medical condition or safety concerns - Mobility A. Roll left and right 04-Supervision or touching assistance B. Sit to lying 04-Supervision or touching assistance C. Lying to sitting on side of bed 04-Supervision or touching assistance D. Sit to stand 04-Supervision or touching assistance E. Chair/[id number] transfer 04-Supervision or touching assistance F. Toilet transfer 04-Supervision or touching assistance G. Car transfer 88-Not attempted due to medical condition or safety concerns I. Walk 10 feet 04-Supervision or touching assistance J. Walk 50 feet with two turns 04-Supervision or touching assistance K. Walk 150 feet 04-Supervision or touching assistance L. Walking 10 feet on uneven surfaces 88-Not attempted due to medical condition or safety concerns M. 1 step (curb) 88-Not attempted due to medical condition or safety concerns N. 4 steps 88-Not attempted due to medical condition or safety concerns O. 12 steps 88-Not attempted due to medical condition or safety concerns P. Picking up object 88-Not attempted due to medical condition or safety concerns R. Wheel 50 feet with two turns 88-Not attempted due to medical condition or safety concerns S. Wheel 150 feet 88-Not attempted due to medical condition or safety concerns - Bladder and Bowel Bladder continence Bowel continence - Endurance Good - Balance Good - Safety Awareness Good CURRENT FUNC. DEFICITS: Mobility and Self-Care SIGNATURE PANEL: (CDT)
--- NOTE | 2020-07-06 20:52 | P.PN ---
Subjective Date of Service: 07/06/20 Chief Complaint: SPINE SURGERY Subjective: Improving WENT DOWN TO SMOKE. COULD NOT FIND HER ON THE FLOOR. SPASMS R LEG, FROM BACK HEADACHES, MIGRAINES. HAS TOO MUCH STRESS, 3 FRIENDS AND SON HAS SOME ISSUES. SHE HAS SEVERE BURNING BACK PAIN SINCE SURGERY. HER HEADACHES ARE BETTER. SHE IS ON DULOXETIN BID. Review of Systems 10-point ROS is otherwise unremarkable General: Weakness Physical Examination - Vital Signs Temperature: 97.9 F Blood Pressure: 134/68 Pulse: 70 Respirations: 16 Pulse Ox (%): 98 - Physical Exam General: Oriented x3, Moderate distress (SEVERE SCOLIOSIS, CHRONIC PAIN. TAKE MORPHINE TRAMADOL DOES NOT WORK. ), Obese - Studies Laboratory Data (last 24 hrs) 07/06/20 08:15: WBC 8.40, Hgb 12.2, Hct 36.0, Plt Count 243 07/06/20 07:13: Sodium 139, Potassium 4.5, BUN 10, Creatinine 0.52 L, Glucose 86 Medications List Reviewed: Yes Assessment And Plan - Current Problems (Diagnosis) (1) Encounter for orthopedic aftercare following scoliosis surgery Current Visit: Yes Status: Chronic Plan: REHAB TO GET STRONGER. SHE STILL SMOKES AND GOES DOWN TO SMOKE. MEDROL DOSE PACK MAY HELP EDEMA IN THE REGION. WILL START MUSCLE RELAXER. COTINUE PT AIR MATTRESS IS NOT COMFORTABLE FOR PATIENTS WITH BACK ISSUES. SHE HAS FIRM MATTRESS AT HOME. (2) Morbid obesity with BMI of 40.0-44.9, adult Current Visit: No Status: Chronic Plan: NOT ABLE TO LOSE WEIGHT DESPITE ADVISE AND INSTRUCTIONS . I ASKED HER TO ORDER WEIGHT LOSS PROBIOTIC, PREBIOTIC AND BUTYRATE FORMULA FROM DR. GARCIA TO HELP LOSE WEIGHT. I SEE ÁLVARO AND MARICRUZ ON TABLE. I HAVE ADVISED PALEO DIET FOR THE WHOLE FAMILY BEFORE. (3) Migraine Current Visit: Yes Status: Acute Plan: R SIDE HEADACHES WITH NAUSE AND PHOTOPHOBIA. HAS ALL MIGRAINE CHARACTERS. TRIAL OF [place]. DR. CANCINO ON THE CASE. (4) Constipation Current Visit: Yes Status: Chronic Plan: SHE ALATORRE SNOT LIKE MIRALAX. SENOKOT IS NOT WORKING. CHANGE TO MOM AND GLYCERINE SUPPOSTORY PRN. MIRALAMX AND MOM. CAN'T GET OFF MORPHINE.
[2020-07-07] MEDS: MORPHINE 15 MG IR TAB PO PRN ×6 (03:33→22:00)
[2020-07-07] MEDS: methocarbamoL 500 MG TAB PO PRN ×3 (05:46→20:08)
[2020-07-07] MEDS: PANTOPRAZOLE 40MG TABLET PO SCH (06:31)
[2020-07-07] MEDS: NICOTINE 14 MG/PAT TD SCH (07:37)
[2020-07-07] MEDS: POLYETHYL GLY 3350 17 GM/DOSE PO SCH ×2 (08:00→18:25)
[2020-07-07] MEDS: GLYCERIN ADULT SUPP PR SCH (08:00)
[2020-07-07] MEDS: NALOXEGOL 25 MG PO SCH (08:00)
[2020-07-07] MEDS: SUMATRIPTAN SUCCI 50 MG TAB PO SCH (08:00)
[2020-07-07] MEDS: HYDRALAZINE HCL 10 MG TABLET PO SCH ×2 (08:00→18:25)
[2020-07-07] MEDS: LIDOCAINE 4% PATCH TOP SCH (08:00)
[2020-07-07] MEDS: ENALAPRIL 2.5 MG TAB PO SCH ×2 (08:00→18:25)
[2020-07-07] MEDS: MAGNESIUM HYDROXIDE 8% 30 ML PO PRN (08:22)
[2020-07-07] MEDS: VITAMIN D 1000 UNIT TAB PO SCH (08:23)
[2020-07-07] MEDS: DULOXETINE 30 MG CAP PO SCH ×2 (08:23→18:55)
[2020-07-07] MEDS: GABAPENTIN 300 MG CAP PO SCH ×3 (08:23→20:07)
[2020-07-07] MEDS: MAGNESIUM OXIDE 400 MG TAB PO SCH ×2 (08:23→20:00)
--- NOTE | 2020-07-07 17:17 | R.PN ---
PROGRESS NOTES ENCOUNTER DATE AND TIME: 07/07/2020 17:13 (CDT) NAME MARYAM INIGUEZ DATE OF : 1965 DATE OF ADMISSION: 06/30/2020 14:19 (ENVIRONMENTAL ATTORNEY) (PRINCIPAL) SAGITTAL PLANE IMBALANCECHIEF COMPLAINT: Scoliosis, with broken rods. SUBJECTIVE: Pt denied any Shortness of Breath. Pt denied any depression. Ambulated 1999' with modified independence using a rolling walker. Self-propelled wheelchair 750' wit h bilateral upper and lower extremities and modified independence. CBC with differential is normal, prealbumin 16.1, Pump And Still Operator 0.52, UA is normal. VITAL SIGNS Temperature: 97.9 F SBP/DBP: 149/86 Pulse: 71 Resp: 16 MEDICATION ALLERGIES: ADHESIVE TAPE SILICONES COMPAZINE DEMEROL ENVIRONMENTAL ALLERGIES: - Substance Allergies None Known - Other Allergies None Known NURSING: - Shower allowing shower - Bladder care per protocol - Skin care per protocol PRECAUTIONS: - Weight Bearing Precaution Weight bearing as tolerated B LE ACTIVITIES OOB only with supervision THERAPIES: - Orthotics/Prosthetics Orthotic Evaluation. Splinting/Casting. - Dietary and Nutrition Adequate Nutrition. Nutritional Education. Nutritional Supplements. PHYSICAL EXAM - Gen Alert and awake Lying in bed No apparent distress Oriented to: person, time, and place - Skin No breakdown No numbness - Eyes No abnormalities - ENMT No abnormalities - Neck No abnormalities - CVS RRR - Chest Clear - Abd + bowel sounds - GI Non distended Deferred - No abnormalities - Ext No significant edema - MSK 4+/5 weakness in both lower extremities. - Neuro No focal deficits - Psych No abnormalities ASSESSMENT: Pt. 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 was independent/mod-I in Safety Awareness, Balance, and Self-Care; and she had good Endurance and Self-Care.Currently, she has defici ts of Locomotion, Balance, Transfers Control, Social Cognition, Sphincter Control, and Endurance.Pt. is now referred to [facility] for acute in-patient rehabilitation in order to maximize patient's functional independence in activities of daily living, strength, ROM, and mobility .- Rehab Goal Patient has realistic goal of being discharged at assistance level 7-Ind to reside at Home with Fami ly/Relatives. MDM/PLAN: - Physical Therapy Inability to transfer - to improve, our physical therapists will perform initial evaluation of pt's status upon admission and devise an individualized program for Bed mobility Need for home safety evaluation - to improve, our physical therapists will perform initial evaluatio n of pt's status upon admission and devise an individualized program for Home Evaluation Need in caregiver upon discharge - to improve, our physical therapists will perform initial evaluati on of pt's status upon admission and devise an individualized program for Caregiver Training New precaution - to improve, our physical therapists will perform initial evaluation of pt's status upon admission and devise an individualized program for Patient precaution education Edema - to improve, our physical therapists will perform initial evaluation of pt's status upon admi ssion and devise an individualized program for Elevation Training, and Lymphedema Therapy Poor balance - to improve, our physical therapists will perform initial evaluation of pt's status up on admission and devise an individualized program for Balance Training Poor endurance - to improve, our physical therapists will perform initial evaluation of pt's status upon admission and devise an individualized program for Endurance Training Achieving independence - to improve, our physical therapists will perform initial evaluation of pt's status upon admission and devise an individualized program for Community Reintegration Activities - Occupational Therapy Cognitive deficits - to improve, our occupation therapists will perform initial evaluation of pt's s tatus upon admission and devise an individualized program for Cognition - orientation Need for care transition coordinator - to improve, our occupation therapists will perform initial evaluation of pt's status upon admission and devise an individualized program for Caregiver Training - Other See attached MAR (Medication Administration Record) - Diet Type Continue Regular - Diet - Liquid Texture Continue Regular - Tube Feed Continue N/A - Bladder care per protocol - Weight Bearing Precaution Weight bearing as tolerated B LE - Skin care per protocol - Diet - Solid Texture Continue Regular - Shower allowing shower FUNCTIONAL STATUS: UPDATED AT WEEKLY TEAM CONFERENCE - Bladder Same accident frequency: 7-Ind - No accidents in the past 7 days - Bowel Same accident frequency: 7-Ind - No accidents in the past 7 days - Walking Same score based on distance walked: 0(N/A) - Wheelchair Same score based on distance traveled: 0(N/A) FUNCTIONAL STATUS: - Self-Care A. Eating Arabella B. Grooming Arabella C. Bathing sup D. Dressing - Upper sup E. Dressing - Lower Denae F. Toileting Denae - Sphincter Control G. Bladder control Arabella H. Bowel control Arabella - Transfers Control I. Bed/Chair/Wheelchair sup J. Toilet Arabella K. Tub/Shower sup - Locomotion L. Walk/Wheelchair (B) Denae M. Stairs ADNO - Communication N. Comprehension (B) Ind O. Expression (B) Ind - Social Cognition P. Social Interaction Ind Q. Problem Solving Ind R. Memory Ind - Endurance Good - Balance Fair - Safety Awareness Good QI SCORES: - Self-Care A. Eating 06-Independent B. Oral hygiene 03-Partial/moderate assistance C. Toileting hygiene 04-Supervision or touching assistance E. Shower/bathe self 04-Supervision or touching assistance F. Upper body dressing 04-Supervision or touching assistance G. Lower body dressing 04-Supervision or touching assistance H. Putting on/taking off footwear 88-Not attempted due to medical condition or safety concerns - Mobility A. Roll left and right 04-Supervision or touching assistance B. Sit to lying 04-Supervision or touching assistance C. Lying to sitting on side of bed 04-Supervision or touching assistance D. Sit to stand 04-Supervision or touching assistance E. Chair/rjs-wy-[id number] transfer 04-Supervision or touching assistance F. Toilet transfer 04-Supervision or touching assistance G. Car transfer 88-Not attempted due to medical condition or safety concerns I. Walk 10 feet 04-Supervision or touching assistance J. Walk 50 feet with two turns 04-Supervision or touching assistance K. Walk 150 feet 04-Supervision or touching assistance L. Walking 10 feet on uneven surfaces 88-Not attempted due to medical condition or safety concerns M. 1 step (curb) 88-Not attempted due to medical condition or safety concerns N. 4 steps 88-Not attempted due to medical condition or safety concerns O. 12 steps 88-Not attempted due to medical condition or safety concerns P. Picking up object 88-Not attempted due to medical condition or safety concerns R. Wheel 50 feet with two turns 88-Not attempted due to medical condition or safety concerns S. Wheel 150 feet 88-Not attempted due to medical condition or safety concerns - Bladder and Bowel Bladder continence Bowel continence - Endurance Good - Balance Good - Safety Awareness Good CURRENT FUNC. DEFICITS: Mobility and Self-Care SIGNATURE PANEL: (CDT)
[2020-07-07] MEDS: ENOXAPARIN 40 MG/0.4 ML SQ SCH (18:55)
[2020-07-08] MEDS: MORPHINE 15 MG IR TAB PO PRN ×5 (00:53→20:30)
--- NOTE | 2020-07-08 01:41 | PN ---
Siri is stable. She is getting ready for therapy today. She is in severe pain with her back, whi ch has had multiple spine surgeries in the past because of severe scoliosis. 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 She had extensive surgery for that again. Now she is here for therapy. She is in severe pain. She needs morphine for pain relief. At home, she is on Dilaudid for pain. With al l these medications, she stays constipated, so I have her on milk of magnesia and MiraLAX on a daily basis. She did not like MiraLAX, so she basically continues milk of magnesia, and further management will be advised by the pain doctor on outpatient basis. BREANNA/CLIFTON Voice ID: [id number] Report ID: [id number]
[2020-07-08] MEDS: methocarbamoL 500 MG TAB PO PRN ×4 (01:51→21:46)
[2020-07-08] MEDS: PANTOPRAZOLE 40MG TABLET PO SCH (06:59)
[2020-07-08 07:48] LABS: Absolute Lymphocytes (CBC) 2.5 K/uL (0.7-4.9); Basophils % 0.4 % (0-1.3); Hematocrit 34.9 % (36.0-45.0); Lymphocytes % 35.8 % (15.3-44.8); MPV 7.6 fL (7.6-11.3); RBC Red Blood Cell Count 3.79 M/uL (3.86-4.86)
[2020-07-08 07:56] LABS: BUN Blood Urea Nitrogen 10 mg/dL (7-18); Bicarbonate 36 mmol/L (21-32); Glucose Level 103 mg/dL (74-106); Potassium 4.3 mmol/L (3.5-5.1); Sodium Level 142 mmol/L (136-145)
[2020-07-08] MEDS: SUMATRIPTAN SUCCI 50 MG TAB PO SCH (08:00)
[2020-07-08] MEDS: HYDRALAZINE HCL 10 MG TABLET PO SCH ×2 (08:00→19:14)
[2020-07-08] MEDS: NALOXEGOL 25 MG PO SCH (08:00)
[2020-07-08] MEDS: POLYETHYL GLY 3350 17 GM/DOSE PO SCH ×2 (08:00→19:14)
[2020-07-08] MEDS: GLYCERIN ADULT SUPP PR SCH (08:00)
[2020-07-08] MEDS: ENALAPRIL 2.5 MG TAB PO SCH ×2 (08:00→19:14)
[2020-07-08] MEDS: LIDOCAINE 4% PATCH TOP SCH (08:00)
[2020-07-08] MEDS: GABAPENTIN 300 MG CAP PO SCH ×3 (08:15→19:16)
[2020-07-08] MEDS: VITAMIN D 1000 UNIT TAB PO SCH (08:15)
[2020-07-08] MEDS: MAGNESIUM OXIDE 400 MG TAB PO SCH ×2 (08:15→19:17)
[2020-07-08] MEDS: DULOXETINE 30 MG CAP PO SCH ×2 (08:15→19:16)
[2020-07-08] MEDS: NICOTINE 14 MG/PAT TD SCH (09:48)
[2020-07-08] MEDS: FENTANYL 25 MCG/PATCH TD SCH (09:48)
[2020-07-08] MEDS: MAGNESIUM HYDROXIDE 8% 30 ML PO PRN (14:11)
[2020-07-08] MEDS: ENOXAPARIN 40 MG/0.4 ML SQ SCH (16:48)
--- NOTE | 2020-07-09 01:35 | PN ---
Subjective: Ms. Rutherford is in severe pain, usually with her lower back issues of scoliosis and recent surgery. Physical Examination: Vital Signs: Blood pressure 136/60. HEENT: No JVD. No carotid bruits. Chest: Clear. Heart: Regular. Morbidly obese. Assessment And Planning: Status post scoliosis surgery. Continue PT, pain management. in [place] for Pain Management. BREANNA/CLIFTON Voice ID: [id number] Report ID: [id number] TODD
[2020-07-09] MEDS: MORPHINE 15 MG IR TAB PO PRN ×6 (06:08→23:30)
[2020-07-09] MEDS: PANTOPRAZOLE 40MG TABLET PO SCH (06:09)
[2020-07-09 07:01] LABS: Absolute Lymphocytes (CBC) 3.3 K/uL (0.7-4.9); Basophils % 0.4 % (0-1.3); Lymphocytes % 39.6 % (15.3-44.8); MPV 7.7 fL (7.6-11.3); RBC Red Blood Cell Count 4.12 M/uL (3.86-4.86)
[2020-07-09 07:14] LABS: Albumin 3.1 g/dL (3.4-5.0); BUN Blood Urea Nitrogen 10 mg/dL (7-18); Bicarbonate 35 mmol/L (21-32); Glucose Level 110 mg/dL (74-106); Magnesium 2.6 mg/dL (1.8-2.4); Potassium 4.7 mmol/L (3.5-5.1); Prealbumin 22.8 mg/dL (20-40); Sodium Level 140 mmol/L (136-145)
[2020-07-09] MEDS: NALOXEGOL 25 MG PO SCH (07:31)
[2020-07-09] MEDS: HYDRALAZINE HCL 10 MG TABLET PO SCH ×2 (07:31→20:00)
[2020-07-09] MEDS: LIDOCAINE 4% PATCH TOP SCH (07:31)
[2020-07-09] MEDS: POLYETHYL GLY 3350 17 GM/DOSE PO SCH ×2 (07:31→20:00)
[2020-07-09] MEDS: GLYCERIN ADULT SUPP PR SCH (07:40)
[2020-07-09] MEDS: SUMATRIPTAN SUCCI 50 MG TAB PO SCH (07:40)
[2020-07-09] MEDS: ENALAPRIL 2.5 MG TAB PO SCH ×2 (07:41→20:00)
[2020-07-09] MEDS: VITAMIN D 1000 UNIT TAB PO SCH (09:06)
[2020-07-09] MEDS: MAGNESIUM OXIDE 400 MG TAB PO SCH ×2 (09:07→20:32)
[2020-07-09] MEDS: DULOXETINE 30 MG CAP PO SCH ×2 (09:07→20:32)
[2020-07-09] MEDS: MAGNESIUM HYDROXIDE 8% 30 ML PO PRN (09:09)
--- NOTE | 2020-07-09 09:39 | P.RH.PN ---
Estimated Length of Stay: 11 Expected Discharge Date: 07/11/20 Discharge Disposition Plan: Home Family Support: Yes [facility] Goal: Mobility, Transfers, Self Care Vital Signs: Last Vital Signs Temp 98.2 F 07/09/20 07:25 Pulse 71 07/09/20 07:25 Resp 18 07/09/20 09:10 BP 129/68 07/09/20 07:25 Pulse Ox 100 07/09/20 09:10 Laboratory: Laboratory Last Values WBC 8.40 K/uL (4.3-10.9) D 07/09/20 06:36 RBC 4.12 M/uL (3.86-4.86) 07/09/20 06:36 Hgb 12.5 g/dL (12.0-15.0) 07/09/20 06:36 Hct 38.0 % (36.0-45.0) 07/09/20 06:36 MCV 92.3 fL (80-100) 07/09/20 06:36 MCH 30.2 pg (27.0-35.0) 07/09/20 06:36 MCHC 32.8 g/dL (32.0-36.0) 07/09/20 06:36 RDW 14.3 % (12.1-15.2) 07/09/20 06:36 Plt Count 261 K/uL (152-406) 07/09/20 06:36 MPV 7.7 fL (7.6-11.3) 07/09/20 06:36 Neutrophils % 49.6 % (41.7-73.7) 07/09/20 06:36 Lymphocytes % 39.6 % (15.3-44.8) 07/09/20 06:36 Monocytes % 6.6 % (3.3-12.3) 07/09/20 06:36 Eosinophils % 3.8 % (0-4.4) 07/09/20 06:36 Basophils % 0.4 % (0-1.3) 07/09/20 06:36 Absolute Neutrophils 4.2 K/uL (1.8-8.0) 07/09/20 06:36 Absolute Lymphocytes 3.3 K/uL (0.7-4.9) 07/09/20 06:36 Absolute Monocytes 0.6 K/uL (0.1-1.3) 07/09/20 06:36 Absolute Eosinophils 0.3 K/uL (0-0.5) 07/09/20 06:36 Absolute Basophils 0.0 K/uL (0-0.5) 07/09/20 06:36 Sodium 140 mmol/L (136-145) 07/09/20 06:36 Potassium 4.7 mmol/L (3.5-5.1) 07/09/20 06:36 Chloride 102 mmol/L (98-107) 07/09/20 06:36 Carbon Dioxide 35 mmol/L (21-32) H 07/09/20 06:36 BUN 10 mg/dL (7-18) 07/09/20 06:36 Creatinine 0.60 mg/dL (0.55-1.3) 07/09/20 06:36 Estimated GFR > 90 mL/min (=/>90) 07/09/20 06:36 Glucose 110 mg/dL (74-106) H 07/09/20 06:36 Calcium 8.8 mg/dL (8.5-10.1) 07/09/20 06:36 Magnesium 2.6 mg/dL (1.8-2.4) H 07/09/20 06:36 Albumin 3.1 g/dL (3.4-5.0) L 07/09/20 06:36 Prealbumin 22.8 mg/dL (20-40) 07/09/20 06:36 Urine Color Yellow 06/30/20 15:00 Urine Appearance Clear 06/30/20 15:00 Urine pH 6.5 (5.0-7.0) 06/30/20 15:00 Ur Specific Marion <=1.005 (1.005-1.030) 06/30/20 15:00 Glucose (UA)(Auto) Negative (NEG) 06/30/20 15:00 Urine Ketones Negative (NEG) 06/30/20 15:00 Urine Blood Negative (NEG) 06/30/20 15:00 Urine Nitrite Negative (NEG) 06/30/20 15:00 Urine Bilirubin Negative (NEG) 06/30/20 15:00 Urine Urobilinogen 1.0 mg/dL (0.2-1.0) 06/30/20 15:00 Ur Leukocyte Esterase Negative (NEG) 06/30/20 15:00 Urine RBC None seen /HPF (NONE SEEN) 06/30/20 15:00 Urine WBC <5 /HPF (<5) 06/30/20 15:00 Ur Squamous Epith Cells <5 /HPF (NONE SEEN) 06/30/20 15:00 Urine Bacteria <20 /HPF (<20) 06/30/20 15:00 Urine Culture Reflexed Not needed 06/30/20 15:00 Urine Total Protein Negative (NEG) 06/30/20 15:00 SARS-CoV-2 RNA (RT-PCR) Negative (NEGATIVE) 07/07/20 06:20 Weight: 254 lb 1.6 oz Wound Present: No Closed Surgical Incision Present: Yes Negative Pressure Wound Therapy Present: No Physician Update: Her labs are essentially normal. She is doing very well with physical and occupational therapy. She will be discharged on Monday. With home health. Functional Improvement: pt has demonstrated consistent progress and has met many functional goals. She has been permitted to be Independent in her room using a RW or rollator. pt is on track for discharge. Summary: Patient's care plan and packager head goals have been reviewed and revised as necessary. Please see the Rehabilitation Signature page for all necessary sig natures.
[2020-07-09] MEDS: GABAPENTIN 300 MG CAP PO SCH ×3 (10:30→20:32)
[2020-07-09] MEDS: NICOTINE 14 MG/PAT TD SCH (12:17)
[2020-07-09] MEDS: methocarbamoL 500 MG TAB PO PRN ×2 (13:55→22:18)
[2020-07-09] MEDS: ENOXAPARIN 40 MG/0.4 ML SQ SCH (17:23)
[2020-07-09] MEDS: ONDANSETRON 4 MG (ODT) TAB PO PRN (22:18)
--- NOTE | 2020-07-09 22:18 | PN ---
Subjective: Ms. Rutherford is stable. Denies any chest pain. She has severe back pain from her multiple scoliosis surgeries in the past. Objective: On physical examination, she is walking with a walker trying to get stronger with the therapy team here. She is trying to lose weight. I see a coke bottle and the food which is not high-protein, low-carbohydrate food so far. Continue occupational and physical therapy. Continue pain management, muscle relaxers. Continue prevention of constipation. RVD/MODL Voice ID: [id number] Report ID: [id number] TODD
[2020-07-10] MEDS: MORPHINE 15 MG IR TAB PO PRN ×5 (02:41→21:39)
[2020-07-10] MEDS: PANTOPRAZOLE 40MG TABLET PO SCH (06:28)
[2020-07-10] MEDS: ACETAMINOPHEN 500 MG TAB PO PRN (06:51)
[2020-07-10] MEDS: POLYETHYL GLY 3350 17 GM/DOSE PO SCH ×2 (07:37→20:00)
[2020-07-10] MEDS: SUMATRIPTAN SUCCI 50 MG TAB PO SCH (07:37)
[2020-07-10] MEDS: HYDRALAZINE HCL 10 MG TABLET PO SCH ×2 (07:37→20:00)
[2020-07-10] MEDS: LIDOCAINE 4% PATCH TOP SCH (07:37)
[2020-07-10] MEDS: GLYCERIN ADULT SUPP PR SCH (07:38)
[2020-07-10] MEDS: NALOXEGOL 25 MG PO SCH (07:38)
[2020-07-10] MEDS ORDERED: GLYCERIN ADULT SUPP PR PRN (07:39)
[2020-07-10] MEDS: ENALAPRIL 2.5 MG TAB PO SCH ×2 (07:58→20:00)
[2020-07-10] MEDS: DULOXETINE 30 MG CAP PO SCH ×2 (08:11→21:30)
[2020-07-10] MEDS: VITAMIN D 1000 UNIT TAB PO SCH (08:11)
[2020-07-10] MEDS: GABAPENTIN 300 MG CAP PO SCH ×3 (08:12→21:30)
[2020-07-10] MEDS: MAGNESIUM OXIDE 400 MG TAB PO SCH ×2 (08:12→21:30)
[2020-07-10] MEDS: ONDANSETRON 4 MG (ODT) TAB PO PRN ×2 (10:22→17:43)
[2020-07-10] MEDS: NICOTINE 14 MG/PAT TD SCH (12:56)
[2020-07-10] MEDS: ENOXAPARIN 40 MG/0.4 ML SQ SCH (16:34)
[2020-07-10] MEDS: methocarbamoL 500 MG TAB PO PRN (17:59)
--- NOTE | 2020-07-10 21:04 | PN ---
Subjective: Ms. Rutherford again is stable in rehab and therapy. She will be discharged home tomorrow. She needs a pain medication for home. She goes to pain doctor, Dr. Patten, who will do a TeleVisit with the patient to get her morphine or Dilaudid called in. She is out of all the medications. ____ . She had multiple surgeries in the past and multiple dave placements in the back. BREANNA/CLIFTON Voice ID: [id number] Report ID: [id number]
[2020-07-11] MEDS: MORPHINE 15 MG IR TAB PO PRN ×4 (00:16→13:05)
[2020-07-11] MEDS: MAGNESIUM HYDROXIDE 8% 30 ML PO PRN (00:16)
[2020-07-11] MEDS: PANTOPRAZOLE 40MG TABLET PO SCH (06:34)
[2020-07-11] MEDS: ACETAMINOPHEN 500 MG TAB PO PRN (07:15)
[2020-07-11 07:16] VITALS: BP 102/52; TEMP 98.4
[2020-07-11] MEDS: HYDRALAZINE HCL 10 MG TABLET PO SCH (08:00)
[2020-07-11] MEDS: POLYETHYL GLY 3350 17 GM/DOSE PO SCH (08:00)
[2020-07-11] MEDS: SUMATRIPTAN SUCCI 50 MG TAB PO SCH (08:00)
[2020-07-11] MEDS: ENALAPRIL 2.5 MG TAB PO SCH (08:00)
[2020-07-11] MEDS: LIDOCAINE 4% PATCH TOP SCH (08:00)
[2020-07-11] MEDS: NALOXEGOL 25 MG PO SCH (08:00)
[2020-07-11] MEDS: VITAMIN D 1000 UNIT TAB PO SCH (08:13)
[2020-07-11] MEDS: MAGNESIUM OXIDE 400 MG TAB PO SCH (08:13)
[2020-07-11] MEDS: DULOXETINE 30 MG CAP PO SCH (08:14)
[2020-07-11] MEDS: NICOTINE 14 MG/PAT TD SCH (08:15)
[2020-07-11] MEDS: FENTANYL 25 MCG/PATCH TD SCH (09:00)
[2020-07-11] MEDS: GABAPENTIN 300 MG CAP PO SCH ×2 (09:40→14:51)
[2020-07-11] MEDS: ONDANSETRON 4 MG (ODT) TAB PO PRN (10:30)
--- NOTE | 2020-07-11 11:30 | FAST ---
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 Paco Brizuela M.D. 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 EATING: EATING - STEP 1: Does the patient complete the activity by him/herself with no assistance (physical, verbal/nonverbal cueing, setup/clean-up)? No. EATING - STEP 2: Does the patient need only setup/clean-up assistance from one helper? Yes. 1. [id number] ADMISSION PERFORMANCE: Setup or clean-up assistance CODE: 05 ORAL HYGIENE: ORAL HYGIENE - STEP 1: Does the patient complete the activity by him/herself with no assistance (physical, verbal/nonverbal cueing, setup/clean-up)? No. ORAL HYGIENE - STEP 2: Does the patient need only setup/clean-up assistance from one helper? Yes. 1. [id number] ADMISSION PERFORMANCE: Setup or clean-up assistance CODE: 05 TOILETING HYGIENE: TOILETING HYGIENE - STEP 1: Does the patient complete the activity by him/herself with no assistance (physical, verbal/nonverbal cueing, setup/clean-up)? No. TOILETING HYGIENE - STEP 2: Does the patient need only setup/clean-up assistance from one helper? Yes. 1. [id number] ADMISSION PERFORMANCE: Setup or clean-up assistance CODE: 05 BATHING: Not assessed/no information CODE: - DRESSING - UPPER BODY: DRESSING - UPPER BODY - STEP 1: Does the patient complete the activity by him/herself with no assistance (physical, verbal/nonverbal cueing, setup/clean-up)? No. DRESSING - UPPER BODY - STEP 2: Does the patient need only setup/clean-up assistance from one helper? Yes. 1. [id number] ADMISSION PERFORMANCE: Setup or clean-up assistance CODE: 05 DRESSING - LOWER BODY: DRESSING - LOWER BODY - STEP 1: Does the patient complete the activity by him/herself with no assistance (physical, verbal/nonverbal cueing, setup/clean-up)? No. DRESSING - LOWER BODY - STEP 2: Does the patient need only setup/clean-up assistance from one helper? Yes. 1. [id number] ADMISSION PERFORMANCE: Setup or clean-up assistance CODE: 05 PUTTING ON/TAKING OFF FOOTWEAR: FOOTWEAR - STEP 1: Does the patient complete the activity by him/herself with no assistance (physical, verbal/nonverbal cueing, setup/clean-up)? No. FOOTWEAR - STEP 2: Does the patient need only setup/clean-up assistance from one helper? No. FOOTWEAR - STEP 3: Does the patient need only verbal/nonverbal cueing or touching/steadying/contact guard assistance fro m one helper? Yes. 1. [id number] ADMISSION PERFORMANCE: Supervision or touching assistance CODE: 04 ROLL LEFT AND RIGHT: ROLL LEFT AND RIGHT - STEP 1: Does the patient complete the activity by him/herself with no assistance (physical, verbal/nonverbal cueing, setup/clean-up)? No. ROLL LEFT AND RIGHT - STEP 2: Does the patient need only setup/clean-up assistance from one helper? No. ROLL LEFT AND RIGHT - STEP 3: Does the patient need only verbal/nonverbal cueing or touching/steadying/contact guard assistance fro m one helper? Yes. 1. [id number] ADMISSION PERFORMANCE: Supervision or touching assistance CODE: 04 SIT TO LYING: SIT TO LYING - STEP 1: Does the patient complete the activity by him/herself with no assistance (physical, verbal/nonverbal cueing, setup/clean-up)? No. SIT TO LYING - STEP 2: Does the patient need only setup/clean-up assistance from one helper? No. SIT TO LYING - STEP 3: Does the patient need only verbal/nonverbal cueing or touching/steadying/contact guard assistance fro m one helper? Yes. 1. [id number] ADMISSION PERFORMANCE: Supervision or touching assistance CODE: LYING TO SITTING: LYING TO SITTING ON SIDE OF BED - STEP 1: Does the patient complete the activity by him/herself with no assistance (physical, verbal/nonverbal cueing, setup/clean-up)? No. LYING TO SITTING ON SIDE OF BED - STEP 2: Does the patient need only setup/clean-up assistance from one helper? No. LYING TO SITTING ON SIDE OF BED - STEP 3: Does the patient need only verbal/nonverbal cueing or touching/steadying/contact guard assistance fro m one helper? Yes. 1. [id number] ADMISSION PERFORMANCE: Supervision or touching assistance CODE: 04 SIT TO STAND: SIT TO STAND - STEP 1: Does the patient complete the activity by him/herself with no assistance (physical, verbal/nonverbal cueing, setup/clean-up)? No. SIT TO STAND - STEP 2: Does the patient need only setup/clean-up assistance from one helper? Yes. 1. [id number] ADMISSION PERFORMANCE: Setup or clean-up assistance CODE: 05 TRANSFERS: BED, CHAIR: CHAIR/[id number] TRANSFER - STEP 1: Does the patient complete the activity by him/herself with no assistance (physical, verbal/nonverbal cueing, setup/clean-up)? No. CHAIR/[id number] TRANSFER - STEP 2: Does the patient need only setup/clean-up assistance from one helper? Yes. 1. [id number] ADMISSION PERFORMANCE: Setup or clean-up assistance CODE: 05 TRANSFER TOILET: TOILET TRANSFER - STEP 1: Does the patient complete the activity by him/herself with no assistance (physical, verbal/nonverbal cueing, setup/clean-up)? No. TOILET TRANSFER - STEP 2: Does the patient need only setup/clean-up assistance from one helper? No. TOILET TRANSFER - STEP 3: Does the patient need only verbal/nonverbal cueing or touching/steadying/contact guard assistance fro m one helper? Yes. 1. [id number] ADMISSION PERFORMANCE: Supervision or touching assistance CODE: 04 TRANSFERS: CAR: Not assessed/no information CODE: - WALK 10 FEET: WALK 10 FEET - STEP 1: Does the patient complete the activity by him/herself with no assistance (physical, verbal/nonverbal cueing, setup/clean-up)? No. WALK 10 FEET - STEP 2: Does the patient need only setup/clean-up assistance from one helper? Yes. 1. [id number] ADMISSION PERFORMANCE: Setup or clean-up assistance CODE: 05 WALK 50 FEET: WALK 50 FEET - STEP 1: Does the patient complete the activity by him/herself with no assistance (physical, verbal/nonverbal cueing, setup/clean-up)? No. WALK 50 FEET - STEP 2: Does the patient need only setup/clean-up assistance from one helper? Yes. 1. [id number] ADMISSION PERFORMANCE: Setup or clean-up assistance CODE: 05 WALK 150 FEET: WALK 150 FEET - STEP 1: Does the patient complete the activity by him/herself with no assistance (physical, verbal/nonverbal cueing, setup/clean-up)? No. WALK 150 FEET - STEP 2: Does the patient need only setup/clean-up assistance from one helper? No. WALK 150 FEET - STEP 3: Does the patient need only verbal/nonverbal cueing or touching/steadying/contact guard assistance fro m one helper? Yes. 1. [id number] ADMISSION PERFORMANCE: Supervision or touching assistance CODE: 04 WALK 10 FEET UNEVEN: Not assessed/no information CODE: - 1 STEP (CURB): Not assessed/no information CODE: - PICKING UP OBJECT: Not assessed/no information CODE: - DOES THE PATIENT USE A WHEELCHAIR/SCOOTER? Q1. DOES THE PATIENT USE A WHEELCHAIR/SCOOTER?: Yes CODE: 1 WHEEL 50 FEET WITH TWO TURNS: WHEEL 50 FEET WITH TWO TURNS - STEP 1: Does the patient complete the activity by him/herself with no assistance (physical, verbal/nonverbal cueing, setup/clean-up)? No. WHEEL 50 FEET WITH TWO TURNS - STEP 2: Does the patient need only setup/clean-up assistance from one helper? Yes. 1. [id number] ADMISSION PERFORMANCE: Setup or clean-up assistance CODE: 05 INDICATE THE TYPE OF WHEELCHAIR/SCOOTER USED: RR1. INDICATE THE TYPE OF WHEELCHAIR/SCOOTER USED.: Manual CODE: 1 WHEEL 150 FEET: WHEEL 150 FEET - STEP 1: Does the patient complete the activity by him/herself with no assistance (physical, verbal/nonverbal cueing, setup/clean-up)? No. WHEEL 150 FEET - STEP 2: Does the patient need only setup/clean-up assistance from one helper? Yes. 1. [id number] ADMISSION PERFORMANCE: Setup or clean-up assistance CODE: 05 INDICATE THE TYPE OF WHEELCHAIR/SCOOTER USED: SS1. INDICATE THE TYPE OF WHEELCHAIR/SCOOTER USED.: Manual CODE: 1 BLADDER AND BOWEL: H350. BLADDER CONTINENCE (3-DAY ASSESSMENT PERIOD): Always continent (no documented incontinence) CODE: 0 H400. BOWEL CONTINENCE (3-DAY ASSESSMENT PERIOD): Always continent CODE: 0 SIGNATURE PANEL: The following modified sections: 1. [id number] Admission Performance, 1. VB3320O Admission Performance, 1. DR0116B Admission Performance, 1. RN5294n Admission Performance, 1. WL8031o Admission Performance, 1. TM6003m Admission Performance, 1. XR0591t Admission Performance, 1. SD4546T Admission Performance , 1. RT2430D Admission Performance, 1. HS1387A Admission Performance, 1. AN2660E Admission Performanc e, 1. UN8901C Admission Performance, 1. EK7317P Admission Performance, 1. ID1142M Admission Performan ce, 1. HB6669Y Admission Performance, 1. AJ5433P Admission Performance, Q1. Does the patient use a wh eelchair/scooter?, 1. KC4147A Admission Performance, RR1. Indicate the type of wheelchair/scooter use d., 1. AS7559P Admission Performance, Code, SS1. Indicate the type of wheelchair/scooter used., H350. Bladder Continence (3-day assessment period), H400. Bowel Continence (3-day assessment period) were [electronically] signed by Kym Jaimes C.N.A. on MonJul 11 2020 11:29:36 T-0500 ([facility])
--- NOTE | 2020-07-24 18:13 | R.DS ---
DISCHARGE SUMMARY FACILITY [facility] MR# [id number] NAME MARYAM INIGUEZ ADDRESS [address] [place] [address] [address] [place] [address] [address] [address] PHONE DATE OF 1965 AGE 54 SSN# [id number] GENDER Female DEXTERITY Right-handed MARITAL STATUS RACE Unknown race ENCOUNTER PHYSICIAN Dr. Paco Brizuela M.D. 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 DATE OF ADMISSION 06/30/2020 14:19 (MANAGER RISK) MEDICATION ALLERGIES: ADHESIVE TAPE SILICONES COMPAZINE DEMEROL ENVIRONMENTAL ALLERGIES: - Substance Allergies None Known - Other Allergies None Known DISCHARGE MEDICATIONS: Other- ContinueSee attached MAR (Medication Administration Record). NURSING: - Shower allowing shower - Bladder care per protocol - Skin care per protocol PRECAUTIONS: - Weight Bearing Precaution Weight bearing as tolerated B LE ACTIVITIES OOB only with supervision THERAPIES: - Orthotics/Prosthetics Orthotic Evaluation Splinting/Casting - Dietary and Nutrition Adequate Nutrition Nutritional Education Nutritional Supplements HISTORY OF PRESENT ILLNESS: Pt. is a 54 yo Right-handed female of unknown race.On 06/24/2020 she was admitted to [facility] with d iagnosis (PRINCIPAL) SAGITTAL PLANE IMBALANCE.Her impairment category is Spinal Cord Dysfunction 04 - Other Traumatic Spinal Cord Dysfunction ().Pre-morbidly, Pt. was independent/mod-I in Safety Awareness, Balance, and Self-Care; and she had good Endurance and Self-Care.Currently, she has defici ts of Locomotion, Balance, Transfers Control, Social Cognition, Sphincter Control, and Endurance.Pt. is now referred to [facility] for acute in-patient rehabilitation in order to maximize patient's functional independence in activities of daily living, strength, ROM, and mobility .- Rehab Goal Patient has realistic goal of being discharged at assistance level 7-Ind to reside at Home with Fami ly/Relatives. HOSPITAL COURSE: DIET - LIQUID TEXTURE: On 06/29/2020 Pt was upgraded to Regular Diet - Liquid Texture. DIET - SOLID TEXTURE: On 06/29/2020 Pt was upgraded to Regular Diet - Solid Texture. DIET TYPE: On 06/29/2020 Pt was upgraded to Regular Diet Type. TUBE FEED: On 06/29/2020 Pt was changed to N/A Tube Feed. WEIGHT BEARING PRECAUTION: On 06/29/2020 the following precautions were added for the patient: Weight Bearing Precaution - Weigh t bearing as tolerated B LE. On 07/01/2020 the following precautions were added for the patient: Weight Bearing Precaution - Weig ht bearing as tolerated B LE. On 07/02/2020 the following precautions were removed for the patient: Weight Bearing Precaution - We ight bearing as tolerated B LE. On 07/06/2020 the following precautions were added for the patient: Weight Bearing Precaution - Weig ht bearing as tolerated B LE. DISCHARGE PHYSICAL EXAM - Gen Alert and awake Lying in bed No apparent distress Oriented to: person, time, and place - Skin No breakdown No numbness - Eyes No abnormalities - ENMT No abnormalities - Neck No abnormalities - CVS RRR - Chest Clear - Abd + bowel sounds - GI Non distended Deferred - No abnormalities - Ext No significant edema - MSK 4+/5 weakness in both lower extremities. - Neuro No focal deficits - Psych No abnormalities FUNCTIONAL STATUS: - Self-Care A. Eating 6-Arabella B. Grooming 6-Arabella C. Bathing 6-Arabella D. Dressing - Upper 6-Arabella E. Dressing - Lower 6-Arabella F. Toileting 6-Arabella - Sphincter Control G. Bladder control 6-Arabella H. Bowel control 6-Arabella - Transfers Control I. Bed/Chair/Wheelchair 6-Arabella J. Toilet 6-Arabella K. Tub/Shower 6-Arabella - Locomotion L. Walk/Wheelchair (B) 6-Arabella M. Stairs 6-Arabella - Communication N. Comprehension (B) 7-Ind O. Expression (B) 7-Ind - Social Cognition P. Social Interaction 7-Ind Q. Problem Solving 7-Ind R. Memory 7-Ind - Endurance Good - Balance Good - Safety Awareness Good QI SCORES: - Self-Care A. Eating 06-Independent B. Oral hygiene 03-Partial/moderate assistance C. Toileting hygiene 04-Supervision or touching assistance E. Shower/bathe self 04-Supervision or touching assistance F. Upper body dressing 04-Supervision or touching assistance G. Lower body dressing 04-Supervision or touching assistance H. Putting on/taking off footwear 88-Not attempted due to medical condition or safety concerns - Mobility A. Roll left and right 04-Supervision or touching assistance B. Sit to lying 04-Supervision or touching assistance C. Lying to sitting on side of bed 04-Supervision or touching assistance D. Sit to stand 04-Supervision or touching assistance E. Chair/zyp-yg-ysswl transfer 04-Supervision or touching assistance F. Toilet transfer 04-Supervision or touching assistance G. Car transfer 88-Not attempted due to medical condition or safety concerns I. Walk 10 feet 04-Supervision or touching assistance J. Walk 50 feet with two turns 04-Supervision or touching assistance K. Walk 150 feet 04-Supervision or touching assistance L. Walking 10 feet on uneven surfaces 88-Not attempted due to medical condition or safety concerns M. 1 step (curb) 88-Not attempted due to medical condition or safety concerns N. 4 steps 88-Not attempted due to medical condition or safety concerns O. 12 steps 88-Not attempted due to medical condition or safety concerns P. Picking up object 88-Not attempted due to medical condition or safety concerns R. Wheel 50 feet with two turns 88-Not attempted due to medical condition or safety concerns S. Wheel 150 feet 88-Not attempted due to medical condition or safety concerns - Bladder and Bowel Bladder continence Bowel continence - Endurance Good - Balance Good - Safety Awareness Good DISCHARGE INSTRUCTIONS: - N/A Eliquis 2.5 mg twice daily. DISCHARGE PLAN, FOLLOW UP CARE PROVISIONS: - Estimated Length of Stay (days) 27. - Consensus on plan Discharge plan has been discussed with primary caregiver. Patient/Family is in agreement with the enmanuel n. Primary caregiver is in agreement with the plan. - Patient/Family Goals Return home independently. - Planned Living Setting Upon Discharge Home, to live with Family/Relatives. Transitional Living. SIGNATURE PANEL: (CDT)
== END 2020-07-11 15:40 | disposition home health service (06) | DRG 92 ==
LOC: 5TH 06-30 14:19
PROVIDERS: ADMIT Psychiatry & Neurology Neurology with Special Qualifications in Child Neurology; ATTEND Psychiatry & Neurology Neurology with Special Qualifications in Child Neurology
DX: R26.89 Other abnormalities of gait and mobility (principal); Z68.41 Body mass index [BMI] 40.0-44.9, adult; E66.01 Morbid (severe) obesity due to excess calories; K59.00 Constipation, unspecified; G43.909 Migraine, unspecified, not intractable, without status migrainosus; G89.29 Other chronic pain; H53.141 Visual discomfort, right eye; F17.200 Nicotine dependence, unspecified, uncomplicated; M19.90 Unspecified osteoarthritis, unspecified site; M54.9 Dorsalgia, unspecified; R73.03 Prediabetes; Z90.710 Acquired absence of both cervix and uterus; Z88.5 Allergy status to narcotic agent; Z47.82 Encounter for orthopedic aftercare following scoliosis surgery; Z91.048 Other nonmedicinal substance allergy status; Z88.8 Allergy status to other drugs, medicaments and biological substances; Z20.822 Contact with and (suspected) exposure to COVID-19
CPT/HCPCS: 36415; 80048; 81001; 82040; 83735; 84134; 85025; 87086; 87088; 97110; 97116; 97161; 97530; 97542; J1650; J7509; U0003

== ENCOUNTER 2020-10-24 21:44 | Emergency (ER) | payer OTHER ==
--- OUTSIDE RECORDS SUMMARY | 2020-10-24 22:02 | XMS REPORT | Continuity of Care Document ---
:1965 Author Organization [facility] Address [address] [place] [address] [address] [place] [address] Care Team Providers Name Role Phone ELIZABETH Attending Clinician Unavailable MD Michael JOHNSON Attending Clinician Unavailable VIKI Attending Clinician Unavailable ELIZABETH Admitting Clinician Unavailable MD Michael JOHNSON Admitting Clinician Unavailable Problems This patient has no known problems. Allergies, Adverse Reactions, Alerts This patient has no known allergies or adverse reactions. Medications This patient has no known medications. Procedures This patient has no known procedures. Encounters Start End Encounter Admission Attending Care Care Encounter Source Date/Time Date/Time Type Type Clinicians Facility Department ID 2020-07-13 2020-07-13 [id number] [place] 00:00:00 00:00:00 [facility] 017 [facility] 2020-07-13 2020-07-13 [facility] [id number] [place] 00:00:00 00:00:00 [facility] 602 [facility] 2020-06-24 2020-06-30 [facility] [id number] [place] 00:00:00 00:00:00 [facility]D 322 Method i 2020-06-22 2020-06-22 [facility] [id number] [place] 00:00:00 00:00:00 FLOYD 004 Method i 2020-06-04 2020-06-04 [facility] [id number] [place] 00:00:00 00:00:00 [facility]LOYD 470 Method i 2020-06-04 2020-06-04 [facility] [id number] [place] 00:00:00 00:00:00 FLOYD 482 Method i 2020-06-04 2020-06-04 [facility] [id number] [place] 00:00:00 00:00:[address] [facility]LOYD [address] 2020-04-06 2020-04-06 Outpatient VIKI, [facility] [id number] [place] 00:00:00 00:00:00 SHAYAN [address] 2020-04-06 2020-04-06 Outpatient ELIZABETH, [facility] [id number] [place] 00:00:00 00:00:00 FLOYD [address] Results Test Description Test Time Test Comments Results Result Comments Source SARS-CoV-2 (COVID-19) RNA [Presence] in Respiratory sp ecimen by 2020-06-29 19:14:54 SHANNAN with probe detection Test Item Value Reference Range Interpretation Comme nts SARS-CoV-2 (COVID-19) RNA [Presence] in Respiratory Not detected No t-Detected specimen by SHANNAN with probe detection (test code = 14329-8) SARS-CoV-2 (COVID-19) RNA [Presence] in Respiratory specimen by SHANNAN with probe [id number] 18:15:10 Test Item Value Reference Range Interpretation Comments SARS-CoV-2 (COVID-19) RNA Not detected Not-Detected [Presence] in Respiratory specimen by SHANNAN with probe detection (test code = 75457-5) SARS-CoV-2 (COVID-19) RNA [Presence] in Respiratory specimen by SHANNAN with probe [id number] 23:19:02 Test Item Value Reference Range Interpretation Comments SARS-CoV-2 (COVID-19) RNA Not detected Not-Detected [Presence] in Respiratory specimen by SHANNAN with probe detection (test code = 22300-3)
[2020-10-24] MEDS ORDERED: ONDANSETRON 4 MG/2 ML VIAL ONE (22:35)
[2020-10-24] MEDS ORDERED: MORPHINE 4 MG/ML SYR ONE (22:35)
[2020-10-24 22:36] LABS: ALT/SGPT 20 U/L (12-78); Albumin 3.2 g/dL (3.4-5.0); Alkaline Phosphatase 97 U/L (45-117); BUN Blood Urea Nitrogen 11 mg/dL (7-18); Bicarbonate 29 mmol/L (21-32); Bilirubin Direct < 0.1 mg/dL (0-0.2); Bilirubin Total 0.2 mg/dL (0.2-1.0); Glucose Level 114 mg/dL (74-106); Lipase 169 U/L (73-393); Protein, Total 7.9 g/dL (6.4-8.2); Sodium Level 140 mmol/L (136-145)
[2020-10-24 22:39] LABS: AST/SGOT 13 U/L (15-37); Potassium 3.8 mmol/L (3.5-5.1)
[2020-10-24 22:59] LABS: Absolute Lymphocytes (CBC) 2.2 K/uL (0.7-4.9); Basophils % 0.3 % (0-1.3); Hematocrit 40.8 % (36.0-45.0); Lymphocytes % 25.2 % (15.3-44.8); MPV 8.7 fL (7.6-11.3); RBC Red Blood Cell Count 4.52 M/uL (3.86-4.86)
[2020-10-24] MEDS ORDERED: DIPHENHYDRAMINE 50 MG/ML VIAL ONE (23:03)
--- NOTE | 2020-10-25 00:17 | ER ---
Nurse's Notes [facility] Name: Siri Rutherford Age: 55 yrs Sex: Female : 1965 Arrival Date: 10/24/2020 Time: 21:48 Bed 13 Private MD: Diagnosis: Abdominal pain, unspecified-splenomegaly Presentation: 10/24 21:49 Chief complaint: EMS states: abdominal pain with N/V, denies fever, hx of em diverticulitis. Coronavirus screen: Client denies travel out of the [place] in the last 14 days. Ebola Screen: Patient negative for fever greater than or equal to 101.5 degrees Fahrenheit, and additional compatible Ebola Virus Disease symptoms Patient denies exposure to infectious person. Patient denies travel to an Ebola-affected area in the 21 days before illness onset. No symptoms or risks identified at this time. Initial Sepsis Screen: Does the patient meet any 2 criteria? No. Patient's initial sepsis screen is negative. Does the patient have a suspected source of infection? No. Patient's initial sepsis screen is negative. Risk Assessment: Do you want to hurt yourself or someone else? Patient reports no desire to harm self or others. Onset of symptoms was October 24, 2020. 21:49 Method Of Arrival: EMS: [facility] em 21:49 Acuity: MARILU 3 em Triage Assessment: 21:54 General: Appears in no apparent distress. General: Behavior is calm, cooperative. Pain: ak2 Complains of pain in abdomen. GI: Reports lower abdominal pain, upper abdominal pain, nausea. Historical: - Allergies: 21:51 Compazine; em 21:51 Demerol (Itching); em - Home Meds: 21:56 Aleve Oral [Active]; Benadryl Oral [Active]; Cymbalta Oral [Active]; Fluoxetine Oral ak2 [Active]; gabapentin Oral [Active]; Melvin Oral [Active]; Omeprazole Oral [Active]; Oxycodone-Acetaminophen Oral [Active]; Pain Pump Dilaudid [Active]; Potassium Chloride Oral [Active]; Stool Softener Oral [Active]; Trazodone Oral [Active]; Tylenol #3 Oral [Active]; Vitamin D Oral [Active]; - PMHx: 21:51 Chronic pain; Diverticulitis; Degenerative disc disease; lymphedema; em - PSHx: 21:51 back sx; em - Immunization history:: Adult Immunizations up to date. - Social history:: Smoking status: Patient reports the use of cigarette tobacco products, smokes one-half pack cigarettes per day. Screenin:55 Abuse screen: Denies threats or abuse. Denies injuries from another. Nutritional ak2 screening: No deficits noted. Tuberculosis screening: No symptoms or risk factors identified. 21:56 Fall Risk None identified. ak2 Assessment: 21:55 General: Appears in no apparent distress. ak2 21:55 GI: Bowel sounds present X 4 quads. Abd is soft X 4 quads. ak2 22:27 Reassessment: pt states that IV contrast makes her itchy, denies swelling or any other em reaction, provider notified, received VO for 25 mg Benadryl IV x 1. 10/25 00:02 Reassessment: Patient and/or family updated on plan of care and expected duration. Pain ak2 level reassessed. Vital Signs: 07 21:49 BP 115 / 76; Pulse 63; Resp 16; Temp 98.5; Pulse Ox 94% on R/A; Weight 120.2 kg; Height em 5 ft. 5 in. (165.10 cm); Pain 7/10; 07 00:02 BP 113 / 71; Pulse 68; Resp 18; Pulse Ox 100% ; ak2 07 21:49 Body Mass Index 44.10 (120.20 kg, 165.10 cm) em ED Course: 10/24 21:48 Patient arrived in ED. cf2 21:51 Triage completed. em 21:51 Arm band placed on. em 21:54 Evert Machado is Primary Nurse. ak2 21:55 Patient has correct armband on for positive identification. ak2 21:55 No provider procedures requiring assistance completed. Inserted saline lock: 22 gauge ak2 in right hand, using aseptic technique. 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 22:00 Jason Patton NP is PHCP. pm1 22:00 Dagoberto Robins MD is Attending Physician. pm1 22:47 CT Abd/Pelvis - IV Contrast Only In Process Unspecified. EDMS 10/25 00:31 IV discontinued. ak2 Administered Medications: 10/24 22:16 Drug: morphine 4 mg Route: IVP; Site: right hand; ak2 22:16 Drug: Zofran (Ondansetron) 4 mg Route: IVP; Site: right hand; ak2 22:47 Drug: Benadryl (diphenhydrAMINE) 25 mg Route: IVP; Site: left antecubital; ak2 10/25 00:19 Drug: Zofran (Ondansetron) 4 mg Route: IVP; Site: right antecubital; ak2 Outcome: 00:16 Discharge ordered by MD. pm1 00:31 Discharged to home ambulatory. ak2 00:31 Condition: good 00:31 Discharge instructions given to patient, family, Prescriptions given X 00:31 Patient left the ED. ak2 Signatures: Dispatcher [employer] John Callahan RN RN em Marinas, Patrick, NP POWDER [employer]IMER CANNING LEADER pm1 Maryjane Chaney 2 Evert Machado ak2
--- NOTE | 2020-10-25 00:17 | EDPHYS ---
Physician Documentation [facility] Name: Siri Rutherford Age: 55 yrs Sex: Female : 1965 Arrival Date: 10/24/2020 Time: 21:48 Bed 13 Private MD: ED Physician Dagoberto Robins HPI: 10/24 23:04 This 55 yrs old Female presents to ER via EMS with complaints of Abdominal pm1 Pain. 23:04 The patient presents with abdominal pain in the left upper quadrant, in the left lower pm1 quadrant. Onset: The symptoms/episode began/occurred today. The symptoms do not radiate. Associated signs and symptoms: Pertinent positives: nausea, vomiting, and diarrhea, Pertinent negatives: chest pain, shortness of breath. The symptoms are described as sharp. Modifying factors: The symptoms are alleviated by nothing, the symptoms are aggravated by nothing. Severity of pain: in the emergency department the pain is actually worse. The patient has experienced similar episodes in the past, a few times, today's symptoms are similar, to previous diverticulitis. The patient has not recently seen a physician. Patient at some popcorn with peanuts yesterday that may have caused her pain. Historical: - Allergies: 21:51 Compazine; em 21:51 Demerol (Itching); em - Home Meds: 21:56 Aleve Oral [Active]; Benadryl Oral [Active]; Cymbalta Oral [Active]; Fluoxetine Oral ak2 [Active]; gabapentin Oral [Active]; [place] Oral [Active]; Omeprazole Oral [Active]; Oxycodone-Acetaminophen Oral [Active]; Pain Pump Dilaudid [Active]; Potassium Chloride Oral [Active]; Stool Softener Oral [Active]; Trazodone Oral [Active]; Tylenol #3 Oral [Active]; Vitamin D Oral [Active]; - PMHx: 21:51 Chronic pain; Diverticulitis; Degenerative disc disease; lymphedema; em - PSHx: 21:51 back sx; em - Immunization history:: Adult Immunizations up to date. - Social history:: Smoking status: Patient reports the use of cigarette tobacco products, smokes one-half pack cigarettes per day. ROS: 23:04 Constitutional: Negative for fever, chills, and weight loss, Cardiovascular: Negative pm1 for chest pain, palpitations, and edema, Respiratory: Negative for shortness of breath, cough, wheezing, and pleuritic chest pain. 23:04 Back: Negative for injury and pain, : Negative for injury, bleeding, discharge, and swelling, MS/Extremity: Negative for injury and deformity, Skin: Negative for injury, rash, and discoloration, Neuro: Negative for headache, weakness, numbness, tingling, and seizure. 23:04 Abdomen/GI: Positive for abdominal pain, nausea, vomiting, and diarrhea, Negative for constipation. 23:04 All other systems are negative. Exam: 23:04 Constitutional: This is a well developed, well nourished patient who is awake, alert, pm1 and in no acute distress. Head/Face: Normocephalic, atraumatic. 23:04 Back: No spinal tenderness. No costovertebral tenderness. Full range of motion. Skin: Warm, dry with normal turgor. Normal color with no rashes, no lesions, and no evidence of cellulitis. MS/ Extremity: Pulses equal, no cyanosis. Neurovascular intact. Full, normal range of motion. 23:04 Eyes: Exam is negative for acute changes, Periorbital structures: appear normal, Pupils: no acute changes, Extraocular movements: no acute changes, Conjunctiva: normal, Sclera: no acute changes, icterus, is not appreciated. 23:04 ENT: Exam is negative for acute changes, Mouth: Lips: normal, Oral mucosa: normal, pink and intact, moist. 23:04 Cardiovascular: Exam negative for acute changes, Rate: normal, Rhythm: regular, Pulses: no pulse deficits are appreciated. 23:04 Respiratory: Exam negative for acute changes, respiratory distress, shortness of breath. 23:04 Abdomen/GI: Inspection: obese Palpation: soft, in all quadrants, mild abdominal tenderness, in the left upper quadrant. 23:04 Neuro: Exam negative for acute changes, Orientation: is normal, Motor: is normal. Vital Signs: 21:49 BP 115 / 76; Pulse 63; Resp 16; Temp 98.5; Pulse Ox 94% on R/A; Weight 120.2 kg; Height em 5 ft. 5 in. (165.10 cm); Pain 7/10; 10/25 00:02 BP 113 / 71; Pulse 68; Resp 18; Pulse Ox 100% ; ak2 10/24 21:49 Body Mass Index 44.10 (120.20 kg, 165.10 cm) em MDM: 10/24 22:14 Patient medically screened. pm1 10/25 00:13 Data reviewed: vital signs. Data interpreted: Pulse oximetry: on room air is 100 %. pm1 Interpretation: normal. 00:13 ED course: Offered mono screen. Patient refused since explanation that it does not pm1 change plan of care. She does have a daughter that drinks from her cups. 10/24 22:01 Order name: Basic Metabolic Panel; Complete Time: 22:46 pm1 10/24 22:01 Order name: CBC with Diff; Complete Time: 23:04 pm1 10/24 22:01 Order name: Hepatic Function; Complete Time: 22:46 pm1 10/24 22:01 Order name: Lipase; Complete Time: 22:46 pm1 10/24 22:01 Order name: CT Abd/Pelvis - IV Contrast Only pm1 10/24 22:01 Order name: IV Saline Lock pm1 10/24 22:01 Order name: Labs collected and sent pm1 Administered Medications: 10/24 22:16 Drug: morphine 4 mg Route: IVP; Site: right hand; ak2 22:16 Drug: Zofran (Ondansetron) 4 mg Route: IVP; Site: right hand; ak2 22:47 Drug: Benadryl (diphenhydrAMINE) 25 mg Route: IVP; Site: left antecubital; ak2 10/25 00:19 Drug: Zofran (Ondansetron) 4 mg Route: IVP; Site: right antecubital; ak2 Disposition: 03:44 Co-signature as Attending Physician, Dagoberto Robins MD. pkl Disposition Summary: 10/25/20 00:16 Discharge Ordered Location: Home pm1 Problem: new pm1 Symptoms: have improved pm1 Condition: Stable pm1 Diagnosis - Abdominal pain, unspecified - splenomegaly pm1 Followup: pm1 - With: Emergency Department - When: As needed - Reason: Worsening of condition Followup: pm1 - With: Private Physician - When: 2 - 3 days - Reason: Recheck today's complaints, Continuance of care, Re-evaluation by your physician Discharge Instructions: - Discharge Summary Sheet pm1 - Abdominal Pain, Adult pm1 - Diarrhea, Adult pm1 - Nausea and Vomiting, Adult pm1 Forms: - Medication Reconciliation Form pm1 - Thank You Letter pm1 - Antibiotic Education pm1 - Prescription Opioid Use pm1 Prescriptions: - ondansetron 4 mg Oral tablet,disintegrating - place 1 tablet by TRANSLINGUAL route every 8 hours As needed; 12 tablet; pm1 Refills: 0, Product Selection Permitted - dicyclomine 20 mg Oral tablet - take 1 tablet by ORAL route every 6 hours As needed; 20 tablet; Refills: 0, pm1 Product Selection Permitted Signatures: Dispatcher [employer] Dagoberto Batres MD MD pkl John Fan, RN RN Jason Mcdonald, INTERNATIONAL RELATIONS TEACHER INTERNATIONAL RELATIONS TEACHER pm1 Evert Machado2
[2020-10-25 00:35] VITALS: TEMP 98.5
[2020-10-25 00:37] VITALS: BP 113/71; O2SAT 100
[2020-10-25] MEDS ORDERED: ONDANSETRON 4 MG/2 ML VIAL ONE (00:39)
--- NOTE | 2020-10-25 13:12 | RAD REPORT ---
EXAM DESCRIPTION: CT - Abdomen Pelvis W Contrast - 10/25/2020 6:45 am CLINICAL HISTORY: 55 years Female ABD PAIN COMPARISON: February 26, 2019. TECHNIQUE: Images were obtained in axial, sagittal, and coronal planes. Intravenous contrast was adm inistered. Arterial and venous imaging was performed. This exam was performed according to our departmental dose-optimization program which includes use of Automated Exposure Control, adjustment of the mA and/or kV according to patient size and/or use of iterative reconstruction technique. FINDINGS: No abnormality involving the liver. Spleen is enlarged measuring 15.8 cm in greatest dimen erendira. Mildly distended gallbladder. Unremarkable pancreas and adrenal glands bilaterally. No obstructing renal or ureteral calculi bilaterally. No hydronephrosis bilaterally. Unremarkable sonja dder. Appendix within normal limits. No bowel obstruction, perforation, or inflammation. No dilatation of abdominal aorta. Unremarkable portal vein. No adenopathy or abnormal fluid collectio ns seen. Extensive postsurgical change thoracolumbar and lumbar spine with metallic fixation rods present. Mod erate levoscoliosis lumbar spine. Fixation sacroiliac joints bilaterally. No acute osseous abnormalit y./Electrodes subcutaneous fat at level of right pelvis anteriorly. Electrode wire versus catheter pr esent extending into the region of the sacrum. No abnormality lower lungs bilaterally. IMPRESSION: No acute intra-abdominal abnormality. Enlarged spleen. Electronically signed by: Ilene Hoffman MD 10/24/2020 10:58 PM CDT Due to temporary technical issues with the PACS/Fluency reporting system, reports are being signed by the in house radiologists without review as a courtesy to insure prompt reporting. The interpreting radiologist is fully responsible for the content of the report.
== END 2020-10-25 00:31 | disposition home or self-care (01) ==
LOC: ER 21:44
DX: R16.1 Splenomegaly, not elsewhere classified (principal); F17.210 Nicotine dependence, cigarettes, uncomplicated; Z88.5 Allergy status to narcotic agent; Z88.8 Allergy status to other drugs, medicaments and biological substances
CPT/HCPCS: 85025; 80048; 36415; 82565; 80076; 83690; 74177; 99284; Q9967; J1200; J2405 ×2

== ENCOUNTER 2020-12-01 03:15 | Emergency (ER) | payer OTHER ==
--- OUTSIDE RECORDS SUMMARY | 2020-12-01 03:18 | XMS REPORT | Continuity of Care Document ---
:1965 Author Organization [facility] t Address [address] [place] [place] [address] Care Team Providers Name Role Phone VIKI Attending Clinician Unavailable ELIZABETH Attending Clinician Unavailable MD ELIZABETH S. Attending Clinician Unavailable Doctor Unassigned, Name Attending Clinician Unavailable Elidia JUANP, F Attending Clinician Peter PAC, S Attending Clinician Eddie PHAM, L Attending Clinician ELIZABETH Admitting Clinician Unavailable MD ELIZABETH S. Admitting Clinician Unavailable Problems This patient has no known problems. Allergies, Adverse Reactions, Alerts This patient has no known allergies or adverse reactions. Medications This patient has no known medications. Procedures This patient has no known procedures. Encounters Start End Encounter Admission Attending Care Care Encounter Source Date/Time Date/Time Type Type Clinicians Facility Department ID 2020-11-02 2020-11-02 [facility] [id number] [place] 00:00:00 00:00:00 SHAYAN [address] 2020-11-02 2020-11-02 [facility]patient [facility] [id number] [place] 00:00:00 00:00:00 SHAYAN [address] 2020-07-13 2020-07-13 [facility] [id number] [place] 00:00:00 00:00:00 FLOYD 017 [facility] 2020-07-13 2020-07-13 Outpatient ELIZABETH, [facility] [id number] [place] 00:00:00 00:00:00 FLOYD 602 [facility] 2020-06-24 2020-06-30 Inpatient ELIZABETH, [facility] [id number] [place] 00:00:00 00:00:00 FLOYD 322 [facility] 2020-06-22 2020-06-22 Outpatient ELIZABETH, [facility] [id number] [place] 00:00:00 00:00:00 FLOYD 004 [facility] 2020-06-04 2020-06-04 Outpatient ELIZABETH, [facility] [id number] [place] 00:00:00 00:00:00 FLOYD 482 [facility] 2020-06-04 2020-06-04 Outpatient ELIZABETH, [facility] [id number] [place] 00:00:00 00:00:00 FLOYD 470 [facility] 2020-06-04 2020-06-04 Outpatient ELIZABETH, [facility] [id number] [place] 00:00:00 00:00:00 FLOYD 871 [facility] 2020-04-14 2020-04-14 Orders Doctor JESSI [id number] 00:00:00 00:00:00 Only Unassigned, VLAD[facility] [id number] [facility] [id number] 2020-04-06 2020-04-06 Outpatient VIKI, [facility] [id number] [place] 00:00:00 00:00:00 SHAYAN 651 [facility] 2020-04-06 2020-04-06 Outpatient ELIZABETH, [facility] [id number] [place] 00:00:00 00:00:00 FLOYD 061 [facility] 2020-03-29 2020-03-29 Emergency Elidia [facility] [id number] 19:21:00 21:29:00 Floresita Sparks [id number] [place] [id number] [place] [id number] 2020-03-26 2020-03-26 Telephone LEANNE [facility] [id number] 00:00:00 00:00:00 [facility] [id number] Surgical [id number] Specialti [id number] es 198 [place] 2020-03-16 2020-03-16 [facility] [id number] 15:09:26 23:59:00 Encounter Matty Sparks [id number] [place] [id number] [place] [id number] 2020-03-16 2020-03-16 Office Peter [facility] [id number] 15:41:11 15:56:11 Visit [facility] [id number] Surgical [id number] Specialti [id number] es 198 [place] Results Test Description Test Time Test Comments Results Result Comments Source SARS-CoV-2 (COVID-19) RNA [Presence] in Respiratory sp ecimen by 2020-06-29 19:14:54 SHANNAN with probe detection Test Item Value Reference Range Interpretation Comme nts SARS-CoV-2 (COVID-19) RNA [Presence] in Respiratory Not detected No t-Detected specimen by SHANNAN with probe detection (test code = 02964-5) SARS-CoV-2 (COVID-19) RNA [Presence] in Respiratory specimen by SHANNAN with probe [id number] 18:15:10 Test Item Value Reference Range Interpretation Comments SARS-CoV-2 (COVID-19) RNA Not detected Not-Detected [Presence] in Respiratory specimen by SHANNAN with probe detection (test code = 37955-9) SARS-CoV-2 (COVID-19) RNA [Presence] in Respiratory specimen by SHANNAN with probe [id number] 23:19:02 Test Item Value Reference Range Interpretation Comments SARS-CoV-2 (COVID-19) RNA Not detected Not-Detected [Presence] in Respiratory specimen by SHANNAN with probe detection (test code = 80119-0)
[2020-12-01] MEDS ORDERED: HYDROCODONE/APAP 10/325 TAB ONE (04:30)
[2020-12-01] MEDS ORDERED: TETANUS & DIPHTHERIA TOX,ADULT 0.5 ML VIAL ONE (04:30)
[2020-12-01] MEDS ORDERED: ONDANSETRON 4 MG (ODT) TAB ONE (04:30)
--- NOTE | 2020-12-01 05:16 | EDPHYS ---
Physician Documentation [facility] Name: Siri Rutherford Age: 55 yrs Sex: Female : 1965 Arrival Date: 12/01/2020 Time: : Bed 9 Private MD: ED Physician Rafita Navarro HPI: 12/01 04:01 This 55 yrs old Female presents to ER via Wheelchair with complaints of Fall shabnam Injury - THINKS SHE BROKE NOSE. 04:01 Details of fall: The patient fell from an upright position, while walking. Onset: The shabnam symptoms/episode began/occurred just prior to arrival. Associated injuries: The patient sustained injury to the head, neck injury, face, decreased range of motion, deformity, hematoma. Severity of symptoms: At their worst the symptoms were mild, in the emergency department the symptoms are unchanged. The patient has not experienced similar symptoms in the past. Historical: - Allergies: 03:48 Compazine; bb 03:48 Demerol (Itching); bb - PMHx: 03:48 Chronic pain; Degenerative disc disease; Diverticulitis; lymphedema; bb - PSHx: 03:48 back sx; multiple orthopedic surgeries; hysterectomy; bb - Immunization history: Last tetanus immunization: unknown. - Social history:: Smoking status: Patient reports the use of cigarette tobacco products, smokes 1.5 packs per day. ROS: 04:02 Constitutional: Negative for fever, chills, and weight loss, Eyes: Negative for injury, shabnam pain, redness, and discharge, Neck: Negative for injury, pain, and swelling, Cardiovascular: Negative for chest pain, palpitations, and edema, Respiratory: Negative for shortness of breath, cough, wheezing, and pleuritic chest pain, Abdomen/GI: Negative for abdominal pain, nausea, vomiting, diarrhea, and constipation, Back: Negative for injury and pain, : Negative for injury, bleeding, discharge, and swelling, Neuro: Negative for headache, weakness, numbness, tingling, and seizure, Psych: Negative for depression, anxiety, suicide ideation, homicidal ideation, and hallucinations, Allergy/Immunology: Negative for hives, rash, and allergies, Endocrine: Negative for neck swelling, polydipsia, polyuria, polyphagia, and marked weight changes, Hematologic/Lymphatic: Negative for swollen nodes, abnormal bleeding, and unusual bruising. 04:02 ENT: Positive for injury or acute deformity, abrasion, contusion, of the nose, rhinorrhea. 04:02 MS/extremity: Positive for decreased range of motion, pain, of the left knee. Exam: 04:02 Constitutional: This is a well developed, well nourished patient who is awake, alert, shabnam and in no acute distress. Eyes: Pupils equal round and reactive to light, extra-ocular motions intact. Lids and lashes normal. Conjunctiva and sclera are non-icteric and not injected. Cornea within normal limits. Periorbital areas with no swelling, redness, or edema. ENT: Nares patent. No nasal discharge, no septal abnormalities noted. Tympanic membranes are normal and external auditory canals are clear. Oropharynx with no redness, swelling, or masses, exudates, or evidence of obstruction, uvula midline. Mucous membranes moist. Neck: Trachea midline, no thyromegaly or masses palpated, and no cervical lymphadenopathy. Supple, full range of motion without nuchal rigidity, or vertebral point tenderness. No Meningismus. Chest/axilla: Normal chest wall appearance and motion. Nontender with no deformity. No lesions are appreciated. Cardiovascular: Regular rate and rhythm with a normal S1 and S2. No gallops, murmurs, or rubs. Normal PMI, no JVD. No pulse deficits. Respiratory: Lungs have equal breath sounds bilaterally, clear to auscultation and percussion. No rales, rhonchi or wheezes noted. No increased work of breathing, no retractions or nasal flaring. Abdomen/GI: Soft, non-tender, with normal bowel sounds. No distension or tympany. No guarding or rebound. No evidence of tenderness throughout. Back: No spinal tenderness. No costovertebral tenderness. Full range of motion. Female : Normal external genitalia. Skin: Warm, dry with normal turgor. Normal color with no rashes, no lesions, and no evidence of cellulitis. Neuro: Awake and alert, GCS 15, oriented to person, place, time, and situation. Cranial nerves II-XII grossly intact. Motor strength 5/5 in all extremities. Sensory grossly intact. Cerebellar exam normal. Normal gait. Psych: Awake, alert, with orientation to person, place and time. Behavior, mood, and affect are within normal limits. 04:02 Head/face: Noted is contusion, that is deep, of the nose, LEFDT KNEE, LEFT SHOULDER, swelling. Vital Signs: 03:43 BP 130 / 69; Pulse 87; Resp 16 S; Temp 97.8(O); Pulse Ox 98% on R/A; Weight 117.93 kg bb (R); Height 5 ft. 5 in. (165.10 cm) (R); Pain 7/10; 05:23 BP 112 / 61; Pulse 81; Resp 18 S; Pulse Ox 92% on R/A; Pain 7/10; bb 03:43 Body Mass Index 43.27 (117.93 kg, 165.10 cm) bb [place] Coma Score: 03:43 Eye Response: to voice(3). Verbal Response: oriented(5). Motor Response: obeys bb commands(6). Total: 14. 04:04 Eye Response: spontaneous(4). Verbal Response: oriented(5). Motor Response: obeys shabnam commands(6). Total: 15. Trauma Score (Adult): 03:43 Eye Response: to voice(0); Verbal Response: oriented(1); Motor Response: obeys bb commands(2); Systolic BP: > 89 mm Hg(4); Respiratory Rate: 10 to 29 per min(4); Rene Score: 14; Trauma Score: 11 MDM: 03:50 Patient medically screened. [facility] 04:04 Differential diagnosis: Contusion of Hematoma on face, nose, Concussion cerebral shabnam contusion. Differential diagnosis: closed head injury, contusion, fracture, sprain, strain. Data reviewed: vital signs, nurses notes, radiologic studies. Data interpreted: monitoring tech: rate is 87 beats/min, rhythm is regular, Pulse oximetry: is not applicable for this patient encounter. Test interpretation: by ED physician or midlevel provider:. Counseling: I had a detailed discussion with the patient and/or guardian regarding: the historical points, exam findings, and any diagnostic results supporting the discharge/admit diagnosis, lab results, radiology results. 12/01 03:51 Order name: Nasal Bones XRAY [facility] 12/01 03:59 Order name: Shoulder Left (2 View) XRAY [facility] 12/01 03:59 Order name: Knee Left 3 View XRAY [facility] 12/01 03:59 Order name: CT Head C Spine [facility] 12/01 03:51 Order name: Ice pack; Complete Time: 04:04 shabnam Administered Medications: 04:11 Drug: [place] (HYDROcodone-acetaminophen) 10 mg-325 mg 1 tabs {Note: RASS 1.} Route: PO; bb 05:23 Follow up: Response: No adverse reaction; RASS: Drowsy (-1) 04:12 Drug: Zofran (Ondansetron) 4 mg Route: PO; bb 05:23 Follow up: Response: No adverse reaction bb 05:22 Drug: Tetanus-Diphtheria Toxoid Adult 0.5 ml {Em Physician: [employer]. Exp: bb 07/23/2022. Lot #: [id number]. } Route: IM; Site: right deltoid; 05:23 Follow up: Response: No adverse reaction bb 05:22 Drug: Neosporin (gqylpsca-lfacwxgthg-hznfatjln) Ointment 1 application Route: Topical; bb Site: wound; 05:32 Drug: Augmentin (Amoxicillin-Clavulanate) 875 mg Route: PO; bb 05:33 Follow up: Response: Medication administered at discharge. Disposition Summary: 12/01/20 05:15 Discharge Ordered Location: Home shabnam Problem: new shabnam Symptoms: have improved shabnam Condition: Stable shabnam Diagnosis - Fall due to bumping against object shabnam - Fracture of nasal bones shabnam - Contusion of left shoulder shabnam - Contusion of left knee shabnam - Abrasion, left knee shabnam Followup: shabnam - With: Private Physician - When: 2 - 3 days - Reason: Recheck today's complaints, Continuance of care, Re-evaluation by your physician Followup: shabnam - With: - When: 2 - 3 days - Reason: Recheck today's complaints, Re-evaluation by your physician Discharge Instructions: - Discharge Summary Sheet shabnam - Fall Prevention in the Home, Adult shabnam - Insomnia shabnam - Nasal Fracture shabnam - Shoulder Pain shabnam - Acute Knee Pain, Adult shabnam - Shoulder Pain, Hrjg-nc-Gjgn shabnam - Fall Prevention in the Home, Adult, Bmjn-bx-Khgw shabnam - Nasal Fracture, Cbpz-ij-Vgja shabnam - Acute Knee Pain, Adult, Kfvv-et-Jzia shabnam Forms: - Medication Reconciliation Form shabnam - Thank You Letter shabnam - Antibiotic Education shabnam - Prescription Opioid Use shabnam Prescriptions: - Neosporin (mbq-nvo-zlumv) - apply 1 application by TOPICAL route 3-4 times daily; 22 gram; Refills: 0, shabnam Product Selection Permitted - Augmentin 875-125 mg Oral Tablet - take 1 tablet by ORAL route every 12 hours for 10 days; 20 tablet; Refills: 0, shabnam Product Selection Permitted Signatures: Dispatcher [employer] Rafita Gomez MD MD cha Ballard, Brenda, RN RN bb
--- NOTE | 2020-12-01 05:16 | ER ---
Nurse's Notes [facility] Name: Siri Rutherford Age: 55 yrs Sex: Female : 1965 Arrival Date: 12/01/2020 Time: 03:17 Bed 9 Private MD: Diagnosis: Fall due to bumping against object;Fracture of nasal bones;Contusion of left shoulder;Contusion of left knee;Abrasion, left knee Presentation: 12/01 03:43 Chief complaint: Patient states: she was on the back porch smoking a cigarette turned bb with her walker and fell hitting her nose which she thinks is broken denies LOC. Care prior to arrival: None. Mechanism of Injury: Fall. Trauma event details: Injury occurred in the [facility], Injury occurred: at home. Injury occurred: December 01, 2020. 03:43 Acuity: MARILU 2 bb 03:43 Method Of Arrival: Wheelchair bb 03:48 Coronavirus screen: At this time, the client does not indicate any symptoms associated bb with coronavirus-19. Ebola Screen: No symptoms or risks identified at this time. Initial Sepsis Screen: Does the patient meet any 2 criteria? No. Patient's initial sepsis screen is negative. Does the patient have a suspected source of infection? No. Patient's initial sepsis screen is negative. Risk Assessment: Do you want to hurt yourself or someone else? Patient reports no desire to harm self or others. Onset of symptoms was December 01, 2020. Trauma Activation: Alert Physician: ED Physician; Name: SALLY; Notified At: 03:56; Arrived At: 03:56 Physician: General Surgeon; Name: ; Notified At: 03:56; Arrived At: Physician: Radiology; Name: ; Notified At: 03:56; Arrived At: Physician: Respiratory; Name: ; Notified At: 03:56; Arrived At: Physician: Lab; Name: ; Notified At: 03:56; Arrived At: Historical: - Allergies: 03:48 Compazine; bb 03:48 Demerol (Itching); bb - PMHx: 03:48 Chronic pain; Degenerative disc disease; Diverticulitis; lymphedema; bb - PSHx: 03:48 back sx; multiple orthopedic surgeries; hysterectomy; bb - Immunization history: Last tetanus immunization: unknown. - Social history:: Smoking status: Patient reports the use of cigarette tobacco products, smokes 1.5 packs per day. Screenin:43 Abuse screen: Denies threats or abuse. Tuberculosis screening: No symptoms or risk bb factors identified. 05:23 Nutritional screening: No deficits noted. Fall Risk None identified. bb Primary Survey: 03:43 NO uncontrolled hemorrhage observed. Breathing/Chest: Respiratory pattern: regular, bb Respiratory effort: spontaneous, unlabored. Circulation: Heart tones present. Disability Verbal Stimuli. 04:30 Exposure/Environment: All clothing and personal items were removed. Forensic evidence bb collection is not deemed to be indicated at this time. Items placed in patient belonging bag. Reassessment Airway Airway Patent Breathing/Chest Respiratory pattern Regular Respiratory effort Spontaneous Unlabored. Secondary Survey: 03:43 HEENT: Nose: bruising and swelling. bb Assessment: 03:43 General: Appears uncomfortable, obese, Behavior is cooperative, lethargic. Pain: bb Complains of pain in face Pain currently is 7 out of 10 on a pain scale. Neuro: Level of Consciousness is lethargic, Oriented to person, place, situation. EENT: nose swollen with bruising. Cardiovascular: Capillary refill < 3 seconds Patient's skin is warm and dry. Respiratory: Airway is patent Respiratory effort is even, unlabored, Respiratory pattern is regular. GI: No signs and/or symptoms were reported involving the gastrointestinal system. Derm: Skin is pink, warm \T\ dry. Musculoskeletal: Circulation, motion, and sensation intact. 05:23 Reassessment: pt appears to be sleeping, eyes closed, resp unlabored, arouses easily bb verbalized understanding of and agrees to plan of care discharge instructions given pt assisted to exit via wheelchair accompanied by family. Vital Signs: 03:43 BP 130 / 69; Pulse 87; Resp 16 S; Temp 97.8(O); Pulse Ox 98% on R/A; Weight 117.93 kg bb (R); Height 5 ft. 5 in. (165.10 cm) (R); Pain 7/10; 05:23 BP 112 / 61; Pulse 81; Resp 18 S; Pulse Ox 92% on R/A; Pain 7/10; bb 03:43 Body Mass Index 43.27 (117.93 kg, 165.10 cm) bb Rene Coma Score: 03:43 Eye Response: to voice(3). Verbal Response: oriented(5). Motor Response: obeys bb commands(6). Total: 14. 04:04 Eye Response: spontaneous(4). Verbal Response: oriented(5). Motor Response: obeys shabnam commands(6). Total: 15. Trauma Score (Adult): 03:43 Eye Response: to voice(0); Verbal Response: oriented(1); Motor Response: obeys bb commands(2); Systolic BP: > 89 mm Hg(4); Respiratory Rate: 10 to 29 per min(4); [place] Score: 14; Trauma Score: 11 ED Course: 03:17 Patient arrived in ED. wm 03:43 Patient has correct armband on for positive identification. bb 03:43 Patient maintains SpO2 saturation greater than 95% on room air. bb 03:44 Triage completed. bb 03:48 Arm band placed on Patient placed in an exam room, on a stretcher, on pulse oximetry. bb Family accompanied patient. 03:50 Rafita Navarro MD is Attending Physician. shabnam 04:00 John Fan, RN is Primary Nurse. em 04:00 Thermoregulation: warm blanket given to patient. bb 04:23 CT Head C Spine In Process Unspecified. EDMS 05:01 Nasal Bones XRAY In Process Unspecified. EDMS 05:02 Shoulder Left (2 View) XRAY In Process Unspecified. EDMS 05:02 Knee Left 3 View XRAY In Process Unspecified. EDMS 05:15 Justyna Martinez MD is Referral Physician. shabnam 05:23 No provider procedures requiring assistance completed. Patient did not have IV access bb during this emergency room visit. Administered Medications: 04:11 Drug: [place] (HYDROcodone-acetaminophen) 10 mg-325 mg 1 tabs {Note: RASS 1.} Route: PO; bb 05:23 Follow up: Response: No adverse reaction; RASS: Drowsy (-1) bb 04:12 Drug: Zofran (Ondansetron) 4 mg Route: PO; bb 05:23 Follow up: Response: No adverse reaction bb 05:22 Drug: Tetanus-Diphtheria Toxoid Adult 0.5 ml {Revenue Cycle Specialist: [employer]. Exp: bb 07/23/2022. Lot #: [id number]. } Route: IM; Site: right deltoid; 05:23 Follow up: Response: No adverse reaction bb 05:22 Drug: Neosporin (hargchvx-aorauusdaj-duiwjvsis) Ointment 1 application Route: Topical; bb Site: wound; 05:32 Drug: Augmentin (Amoxicillin-Clavulanate) 875 mg Route: PO; bb 05:33 Follow up: Response: Medication administered at discharge. bb Intake: 03:43 PO: 0ml; Total: 0ml. bb Outcome: 05:15 Discharge ordered by . shabnam 05:26 Discharged to home via wheelchair, with family. seymour 05:26 Condition: stable 05:26 Discharge instructions given to patient, Instructed on discharge instructions, follow up and referral plans. medication usage, Demonstrated understanding of instructions, follow-up care, medications, Prescriptions given X 2. 05:44 Patient left the ED. bb Signatures: Dispatcher [employer] Rafita Gomez MD MD cha Munoz, Edgar, RN RN Allison Hill RN RN Franny Dumont
[2020-12-01] MEDS ORDERED: AMOX/K CLAV 875 MG TAB ONE (05:45)
[2020-12-01 05:52] VITALS: TEMP 97.8
[2020-12-01 05:54] VITALS: BP 112/61; O2SAT 92
--- NOTE | 2020-12-01 08:34 | RAD REPORT ---
EXAM DESCRIPTION: RAD - Nasal Bones - 12/01/2020 5:01 am CLINICAL HISTORY: FACIAL PAIN COMPARISON: Head C Spine Mpr Wo Con dated 12/01/2020 FINDINGS: No nasal bone fracture or displacement of the nasal bones identifiable. Nasal septum is in the midline. Edema/mucosal thickening changes are present in the nasal passages and ethmoid air cell s. No air-fluid level in the maxillary sinuses. No facial bone fracture identified. No sclerotic or expansile bony changes of the nasal sinuses. Righ t frontal sinus is underpneumatized. Mastoid air cells remain lucent. IMPRESSION: Mucosal thickening in the nasal passages and ethmoid air cells.
--- NOTE | 2020-12-01 08:35 | RAD REPORT ---
EXAM DESCRIPTION: RAD - Shoulder Left 2 View - 12/01/2020 5:02 am CLINICAL HISTORY: PAIN COMPARISON: <Comparisons> TECHNIQUE: Internal and external rotation views of the left shoulder were obtained. FINDINGS: There is no fracture or dislocation. AC joint is normal in appearance. Minimal degenerativ e change along the undersurface of the acromion. Acromial humeral joint space is reduced slightly. No abnormal soft tissue calcifications. No acute or suspicious findings. IMPRESSION: Negative two-view left shoulder examination for acute findings. Minimal degenerative change seen to the undersurface of the acromion with slight narrowing of the acr omial humeral joint space.
--- NOTE | 2020-12-01 08:36 | RAD REPORT ---
EXAM DESCRIPTION: RAD - Knee Left 3 View - 12/01/2020 5:02 am CLINICAL HISTORY: PAIN COMPARISON: <Comparisons> FINDINGS: No fracture, dislocation or periosteal reaction.No measurable joint effusion seen. The lat eral view is slightly oblique angulation to the supra patella region. Patient does have marginal spur ring along the medial and lateral compartments. This is greater than usually seen at this age. Mild m arginal spurring seen inferior aspect of the patella. No joint space narrowing. No air or foreign bod y in the soft tissues. Subcutaneous fat does appear edematous. IMPRESSION: Left knee degenerative changes are present as detailed, greater than typically seen in a patient this age. No acute bone or joint finding identifiable. Clinical concerns for internal derangement or occult bony injury could be further assessed with MR im aging.
--- NOTE | 2020-12-01 13:01 | RAD REPORT ---
EXAM DESCRIPTION: CT - [id number] - 12/01/2020 6:33 am CLINICAL HISTORY: The patient is 55 years old and is Female; PAIN TECHNIQUE: Axial computed tomography images of the head/brain and cervical spine without intravenous contrast. Sagittal and coronal reformatted images were created and reviewed. This CT exam was pe rformed using one or more of the following dose reduction techniques: automated exposure control, a djustment of the mA and/or kV according to patient size, and/or use of iterative reconstruction techn ique. COMPARISON: No relevant prior studies available. FINDINGS: Brain: Unremarkable. No hemorrhage. No significant white matter disease. No edema. Ventricles: Unremarkable. No ventriculomegaly. Skull: No acute fracture. Sinuses: Maxillary and ethmoid sinus mucosal thickening. Mastoid air cells: Unremarkable as visualized. No mastoid effusion. Vertebrae: No acute cervical spine fracture or subluxation. Partially visualized postsurgical changes in the upper thoracic spine. Discs/spinal canal/neural foramina: Disc space narrowing with degenerative endplate changes from C4-5 through C6-7. Severe bilateral neural foraminal narrowing at C3-C4. Moderate to severe left neural foraminal narrowing at C4-C5. Moderate left neural foraminal narrowing at C5-C6. Mild spinal canal narrowing at C5-C6. Moderate left neural foraminal narrowing at C6-C7. Disc osteophyte complex causing moderate spinal canal narrowing at C6-C7. Soft tissues: Unremarkable. Lymph nodes: Enlarged 1.2 cm left supraclavicular lymph node, series 301 image 72. IMPRESSION: 1. No acute intracranial abnormality. 2. No acute cervical spine fracture or subluxation. 3. Moderate to severe degenerative changes in the cervical spine as described above. 4. Enlarged 1.2 cm left supraclavicular lymph node, series 301 image 72. Electronically signed by: Ben Lea MD 12/01/2020 5:22 AM CDT Due to temporary technical issues with the PACS/Fluency reporting system, reports are being signed by the in house radiologists without review as a courtesy to insure prompt reporting. The interpreting radiologist is fully responsible for the content of the report.
== END 2020-12-01 05:44 | disposition home or self-care (01) ==
LOC: ER 03:15
DX: S02.2XXA Fracture of nasal bones, initial encounter for closed fracture (principal); S80.212A Abrasion, left knee, initial encounter; S40.012A Contusion of left shoulder, initial encounter; S80.02XA Contusion of left knee, initial encounter; W19.XXXA Unspecified fall, initial encounter; Y93.01 Activity, walking, marching and hiking; Z88.5 Allergy status to narcotic agent; Z88.8 Allergy status to other drugs, medicaments and biological substances; Z23 Encounter for immunization; F17.210 Nicotine dependence, cigarettes, uncomplicated
CPT/HCPCS: 70160; 70450; 72125; 90471; 90714; 99284; G0390

== ENCOUNTER 2022-09-17 12:09 | Emergency (ER) | payer OTHER ==
--- OUTSIDE RECORDS SUMMARY | 2022-09-17 12:21 | XMS REPORT | Continuity of Care Document ---
:1965 Author Organization [facility] t Address [address] [place] [address] [address] [place] [address] Care Team Providers Name Role Phone Nader Gonzalez Tisha Primary Care Physician Staci PHAM, Perry Hodges Attending Clinician Dina Lang MD Attending Clinician JUAN MIGUEL ANGEL Attending Clinician Unavailable Juan Miguel Angel DO Attending Clinician Jl Gill PA-C Attending Clinician Zandra Bryant RN Attending Clinician Unavailable Tatianna De La Torre MD Attending Clinician [phone] Inocencia Herrera MD Attending Clinician Haylie Galvez RN Attending Clinician Unavailable RADIOLOGY Attending Clinician Unavailable Radiology Attending Clinician Unavailable OLGA MAJOR Attending Clinician Unavailable Olga Major MD Attending Clinician Baichoo MD, Aric A. Attending Clinician Shahab PHAM, Susi Attending Clinician Meche PHAM, Varinder Crawley Attending Clinician [phone] Sahil PHAM, Del Hodges Attending Clinician Brooke PHAM, Mal Whitt Attending Clinician [phone] Gurwinder Selby Attending Clinician Beulah PHAM, Anuel Attending Clinician Giuliana PHAM, Monalisa Flores Attending Clinician [phone] Artemio CASTILLO, Alissa Senior Attending Clinician [facility], Jolanta Attending Clinician Unavailable Gabo PHAM, Raul Bahena Attending Clinician Jana PHAM, Nereida Ace Attending Clinician Adama PHAM, Elvia Attending Clinician Pob, Adc Lab Main Attending Clinician Unavailable Ari Hopkins MD Attending Clinician ARI HOPKINS Attending Clinician Unavailable EMILE CUEVAS Attending Clinician Unavailable Emile Cuevas MD Attending Clinician ABBEY BELTRAN Attending Clinician Unavailable Abbey Beltran MD Attending Clinician Leti ELLIOTT, Guillermina Hernández Attending Clinician KRISS FARMER Attending Clinician Unavailable Ольга Dunn DO Attending Clinician Loi Nazario DO Attending Clinician Kriss Farmer MD Attending Clinician Ilda Mann MA Attending Clinician Unavailable Doctor Unassigned, Peralta Attending Clinician Unavailable SHYANNE DEJESUS Attending Clinician Unavailable Shyanne Meier Attending Clinician Therapy, Clc Covid Infusion Attending Clinician Unavailable Geo Viera MD Attending Clinician GEO VIERA Attending Clinician Unavailable Fabiola Casas RN Attending Clinician Unavailable Cherelle Atwood RN Attending Clinician Unavailable JOHNSON DE LA GARZA Attending Clinician Unavailable Omjinahomi CYDNEY, Omayemi Attending Clinician Johnson Berrios Attending Clinician Whit Sanders MD Attending Clinician WHIT SANDERS Attending Clinician Unavailable SHAYAN DREW Attending Clinician Unavailable MAL JOHNSON Attending Clinician Unavailable MD MAL JOHNSON Attending Clinician Unavailable Elidia LAMAS, Anjana F Attending Clinician ARLINE KINGO F Attending Clinician Unavailable JUAN MIGUEL ANGEL Admitting Clinician Unavailable INOCENCIA HERRERA Admitting Clinician Unavailable DINA LANG Admitting Clinician Unavailable OLGA MAJOR Admitting Clinician Unavailable Olga [place] MD Admitting Clinician SUSI WADE Admitting Clinician Unavailable NEREIDA BATES Admitting Clinician Unavailable EMILE CUEVAS Admitting Clinician Unavailable ABBEY BELTRAN Admitting Clinician Unavailable KRISS FARMER Admitting Clinician Unavailable Kriss Farmer MD Admitting Clinician NADER GONZALEZ Admitting Clinician Unavailable MAL JOHNSON Admitting Clinician Unavailable MD MAL JOHNSON Admitting Clinician Unavailable ANJANA KING Admitting Clinician Unavailable Payers Payer Name Policy Type Policy Number Effective Date Expiration Date Donaldo OROZCO O [id number] 2021 00:00:00 Problems Condition Condition Condition Status Onset Resolution Last Treating Co mments Source Name Details Category Date Date Treatment Clinician Date Abdominal Abdominal Disease Active Met hodi infection infection 06-16 st 00:00: Hospita 00 l Cellulitis Cellulitis Disease Active M ethodi of of 05-16 st abdominal abdominal 00:00: Hosp anders wall wall 00 l Dehydratio Dehydratio Disease Active 2021-04 M ethodi n n 06-18 st 00:00: Hospita 00 l Acute Acute Disease Active 2021-04 Univers biliary biliary 0-27 ity of pancreatit [place]it [place] without is without 00 Me dical infection infection Bran ch or or necrosis necrosis Epigastric Epigastric Disease Active 2021-04 U nivers pain pain 0-20 ity of 00:00: [place] [facility] Morbid Morbid Disease Active 2021-04 Univers obesity obesity 0-20 [place] of with body [place] mass [place] mass index 00 Me dical of of Branch 40.0-49.9 40.0-49.9 Mechanical Mechanical Disease Active 2019-04 Overview : Methodi complicati complicati [address] on of on of 00:00: g of this Hospita internal internal 00 note l fixation fixation might be device device different such as such as from the nail, nail, original. 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 3-20 st imbalance imbalance 00:00: Hosp anders 00 l Spinal Spinal Disease Active Methodi instabilit instabilit [address] [facility] y y 00:00: Hospita 00 l Left ankle Left ankle Disease Active U nivers pain pain 4-13 ity of 00:00: Medical Branch Allergies, Adverse Reactions, Alerts Allergy Allergy Status Severity Reaction(s) Onset Inactive Treating Comm ents Source Name Type Date Date Clinician LATEX DRUG Active Unknown-Cmnt Univ ers INGREDI 2-14 ity of 00:00: [place] [facility] Latex Propensi Active Unknown - blisters Uni vers ty to See comments 2-14 ity of adverse 00:00: [place] reaction 00 Medical s Branch Dicyclom Propensi Active Hallucinatio Severe Methodi ine ty to ns 05-[address] adverse 00:00: s and Bad Hospit a reaction 00 dreams l s to per drug patient Meperidi Propensi Active Itching It works Met hodi ne ty to 3-[address] adverse 00:00: but needs Hospit a reaction 00 to have l s to Benadryl drug also. MEPERIDI DRUG Active ITCHING Univers NE INGREDI 06-24 ity of 00:00: [place] [facility] Meperidi Propensi Active Itching It works Uni vers ne ty to 06-24 for her ity of adverse 00:00: but needs [place] reaction 00 to have Medical s Benadryl Branch also. Adhesive Propensi Active blisters Meth rebecca Tape-Madeline ty to 06-22 st icones adverse 00:00: Hospita reaction 00 l s to drug Prochlor Propensi Active Legs go Metho di perazine ty to 06-[address] Edisylat adverse 00:00: crazy Hospita e reaction 00 l s to drug Prochlor Propensi Active Nausea Univer s perazine ty to and/or 08-04 ity of adverse Vomiting 00:00: [place] reaction 00 Medical s Branch PROCHLOR DRUG Active N/V Univers PERAZINE INGREDI 08-04 ity of 00:00: [place] 00 Medical [place] Social History Social Habit Start Date Stop Date Quantity Comments Source Gender identity 2019-04-04 Identifies as Method ist 08:01:14 female gender Hospital (finding) History [facility] University o f Alcohol Comment [facility] Sexual orientation Method ist Hospital History of tobacco Cigarette Smoker Taoism use Hospital Exposure to 2022-06-30 2022-07-10 Not sure University of SARS-CoV-2 (event) 00:00:00 19:04:00 [facility] History of Social 2022-06-28 2022-06-[address] function 00:00:00 00:00:00 Hospital Alcohol intake 2022-06-20 2022-06-20 Current Taoism 00:00:00 00:00:00 non-drinker of Hospital alcohol (finding) Cigarettes smoked 2022-05-17 2022-05-[address] current (pack per 00:00:00 00:00:00 Hospita l day) - Reported Cigarette 2022-05-17 2022-05-17 Taoism pack-years 00:00:00 00:00:00 Hospital Tobacco Comment 2022-05-17 2022-05-17 Quit for 3+ yes Meth odist 00:00:00 00:00:00 then [facility] reared its ugly head Tobacco use and 2022-05-17 2022-05-17 Smokeless tobacco Me thodist exposure 00:00:00 00:00:00 non-user Hospital History SDRI 2020-03-16 2020-03-16 1 University o f Alcohol Frequency 00:00:00 00:00:00 [facility] edical Branch History [facility] 2020-03-16 2020-03-16 99 University o f Alcohol Std Drinks 00:00:00 00:00:00 [place] [facility] History [facility] 2020-03-16 2020-03-16 1 University o f Alcohol Binge 00:00:00 00:00:00 [facility] Sex Assigned At [birth year] HAYLEE Shipley 00:00:00 00:00:00 [facility] Smoking Status Start Date Stop Date Source Smokes tobacco daily 2022-05-17 00:00:00 [facility] Medications Ordered Filled Start Stop Current Ordering Indication Dosage Frequency Signature Comments Components Source Medication Medication Date Date Medication? Clinician (SIG) Name Name hydrOXYzine 2022- No 25mg 25 mg, Uni vers (ATARAX) 07-11 03-20 Oral, ity of tablet 25 03:45: 03:36 ONCE, 1 [place] mg 00 :00 dose, On Medical [place] 07/10/22 at 2245, AZEB iopamidol 2022- No [id number] 100mL 100 mL, Univers (ISOVUE 07-11-20 Intravenou ity o f 370-500 mL) 02:45: 02:45 s, ONCE, 1 [place] injection 00 :00 dose, On Medica l 100 mL Sun Branch 07/10/22 at 2145, Routine NaCl 0.9% 2022- No 1000mL at 999 Uni vers (NS) bolus - 03-20 mL/hr, ity of infusion 01:45: 03:22 1,000 mL, Khris as 1,000 mL 00 :00 IV Medical Piggyback, Branch ONCE, 1 dose, On 07/10/22 at 2045, STAT hydrOXYzine Yes [id number] 10mg Take 1 Univers 10 mg 07-10 tablet by ity of tablet 00:00: mouth [place] 00 every 6 Medical (six) Branch hours. nystatin 0 Yes [id number] Apply to Univers 100,000 07-1008 affected ity of unit/gram 00:00: area(s) 3 Khris as ointment 00 (three) Medical times Branch daily. fluconazole 0 2022- Yes [id number] 150mg Take 1 Univers 150 mg 07-1008 tablet by ity of tablet 00:00: 04:59 mouth [place] 00 :00 now for 1 Medical dose. Branch DULoxetine 0 Yes 60mg Q.5D Take 1 Metho di (CYMBALTA) 3-[address] 60 MG 12:49: (60 mg Hospita capsule 03 total) by l mouth 2 (two) times a day. losartan-hy Yes 1{tbl} QD Take 1 Me thodi drochloroth 3-[address] iazide 12:49: mouth Hospita (HYZAAR) 03 daily. l 50-12.5 mg per tablet methocarbam 0 Yes 750mg Q8H Take 1 Met hodi oL 3-[address] (ROBAXIN) 12:49: (750 mg Hospi ta 750 MG 03 total) by l tablet mouth every 8 (eight) hours. ondansetron 0 Yes 4mg Q8H Take 1 Meth rebecca ODT 3-02 tablet (4 st (ZOFRAN-ODT 12:49: mg total) H ospita ) 4 MG 03 by mouth l disintegrat every 8 ing tablet (eight) hours as needed for nausea or vomiting. sennosides- Yes 2{tbl} QD Take 2 Me thodi docusate 3-[address] sodium 12:49: mouth Hospita (SENOKOT-S) 03 nightly. l 8.6-50 mg per tablet simethicone 2022-0 Yes 80mg Q6H Chew 1 Meth rebecca (MYLICON) 3-02 tablet (80 st 80 MG 12:49: mg total) Hospita chewable 03 every 6 l tablet (six) hours as needed for flatulence . traZODone 2022-0 Yes 50mg QD Take 1 Method i (DESYREL) 3-02 tablet (50 st 50 MG 12:49: mg total) Hospita tablet 03 by mouth l nightly. zinc 0 Yes 1{capsu QD Take 1 Methodi sulfate -02 le} capsule by st (ZINCATE) 12:49: mouth Hospita 50 mg zinc 03 daily. l (220 mg) capsule Lactobacill 2022-0 Yes 1{capsu QD Take 1 M ethodi us 06-23 le} capsule by st acidophilus 12:49: mouth Hospi ta (PROBIOTIC 03 daily. l ORAL) DAPTOMYCIN 0 Yes QD Infuse Metho di IV [address] 12:49: venous Hospita 03 catheter l daily. diazePAM 0 Yes 10mg Q24H Take 1 Methodi (VALIUM) 10 - tablet (10 st MG tablet 12:49: mg total) Hos forrest 03 by mouth l daily as needed for anxiety. diclofenac 0 Yes Q.25D Apply 2 g M ethodi (VOLTAREN) 06-23 (1 st 1 % gel 12:49: applicatio Hosp anders 03 n total) l topically 4 (four) times a day. acetaminoph Yes 1000mg Q.5D Take 2 Me thodi en -[address] (TYLENOL) 12:49: (1,000 mg Hos forrest 500 MG 03 total) by l tablet mouth 2 (two) times a day as needed for mild pain. naproxen Yes 220mg Q.5D Take 1 Method i sodium -[address] (Aleve) 220 12:49: (220 mg Hos forrest MG tablet 03 total) by l mouth 2 (two) times a day as needed for mild pain. lidocaine 0 Yes 2{patch Q24H Place 2 Me thodi (LIDODERM) -02 } patches on st 5 % 12:49: the skin Hospita 03 daily as l needed for mild pain. Remove & Discard patch within 12 hours or as directed by DULoxetine 0 Yes 60mg Q.5D Take 1 Metho di (CYMBALTA) -[address] 60 MG 12:49: (60 mg Hospita capsule 03 total) by l mouth 2 (two) times a day. losartan-hy 0 Yes 1{tbl} QD Take 1 Me thodi drochloroth 3-[address] iazide 12:49: mouth Hospita (HYZAAR) 03 daily. l 50-12.5 mg per tablet methocarbam 2022-0 Yes 750mg Q8H Take 1 Met hodi oL 3-[address] (ROBAXIN) 12:49: (750 mg Hospi ta 750 MG 03 total) by l tablet mouth every 8 (eight) hours. ondansetron 0 Yes 4mg Q8H Take 1 Meth rebecca ODT 3-02 tablet (4 st (ZOFRAN-ODT 12:49: mg total) H ospita ) 4 MG 03 by mouth l disintegrat every 8 ing tablet (eight) hours as needed for nausea or vomiting. sennosides- 0 Yes 2{tbl} QD Take 2 Me thodi docusate 3-[address] sodium 12:49: mouth Hospita (SENOKOT-S) 03 nightly. l 8.6-50 mg per tablet simethicone 0 Yes 80mg Q6H Chew 1 Meth rebecca (MYLICON) 3-02 tablet (80 st 80 MG 12:49: mg total) Hospita chewable 03 every 6 l tablet (six) hours as needed for flatulence . traZODone 0 Yes 50mg QD Take 1 Method i (DESYREL) 3-02 tablet (50 st 50 MG 12:49: mg total) Hospita tablet 03 by mouth l nightly. zinc 0 Yes 1{capsu QD Take 1 Methodi sulfate 3-02 le} capsule by st (ZINCATE) 12:49: mouth Hospita 50 mg zinc 03 daily. l (220 mg) capsule Lactobacill 0 Yes 1{capsu QD Take 1 M ethodi us 3-02 le} capsule by st acidophilus 12:49: mouth Hospi ta (PROBIOTIC 03 daily. l ORAL) DAPTOMYCIN 2022-0 Yes QD Infuse Metho di IV 3-[address] 12:49: venous Hospita 03 catheter l daily. diazePAM 2022-0 Yes 10mg Q24H Take 1 Methodi (VALIUM) 10 3-02 tablet (10 st MG tablet 12:49: mg total) Hos forrest 03 by mouth l daily as needed for anxiety. diclofenac 2022-0 Yes 1{appli Q.25D Apply 2 g Methodi (VOLTAREN) 3-02 cation} (1 st 1 % gel 12:49: applicatio Hosp anders 03 n total) l topically 4 (four) times a day. acetaminoph 0 Yes 1000mg Q.5D Take 2 Me thodi en 3-[address] (TYLENOL) 12:49: (1,000 mg Hos forrest 500 MG 03 total) by l tablet mouth 2 (two) times a day as needed for mild pain. naproxen 0 Yes 220mg Q.5D Take 1 Method i sodium 3-[address] (Aleve) 220 12:49: (220 mg Hos forrest MG tablet 03 total) by l mouth 2 (two) times a day as needed for mild pain. lidocaine 0 Yes 2{patch Q24H Place 2 Me thodi (LIDODERM) 3-02 } patches on st 5 % 12:49: the skin Hospita 03 daily as l needed for mild pain. Remove & Discard patch within 12 hours or as directed by hydromorPHO 2022-0 2023- No 4mg Q8H Take 1 Met hodi NE 3-02 03-01 tablet (4 st (DILAUDID) 12:49: 00:00 mg total) H ospita 4 MG tablet 03 :00 by mouth l every 8 (eight) hours as needed (pain). hydromorPHO 2022-0 2023- No 4mg Q8H Take 1 Met hodi NE 3-02 03-01 tablet (4 st (DILAUDID) 12:49: 00:00 mg total) H ospita 4 MG tablet 03 :00 by mouth l every 8 (eight) hours as needed (pain). cyanocobala 0 Yes 1000ug Q14D Inject Me thodi min, 3-01 1,[address] vitamin 12:49: as Hospita B-12, 1,000 13 directed l mcg/mL kit every 14 (fourteen) days. cholecalcif 2022-0 Yes 2000U QD Take 1 Met hodi gretchen, 3-[address] vitamin D3, 12:49: (2,000 Hosp anders (VITAMIN 13 Units l D3) 2,000 total) by unit mouth capsule daily. capsule cyanocobala 2022-0 Yes 1000ug Q14D Inject Me thodi min, 06-22 1,[address] vitamin 12:49: as Hospita B-12, 1,000 13 directed l mcg/mL kit every 14 (fourteen) days. cholecalcif 2022-0 Yes 2000U QD Take 1 Met hodi gretchen, 06-[address] vitamin D3, 12:49: (2,000 Hosp anders (VITAMIN 13 Units l D3) 2,000 total) by unit mouth capsule daily. capsule hydromorPHO 2022-0 2022- [place] [id number] 4mg Q8H Take 1 Me thodi NE 06-22 03-05 tablet (4 st (DILAUDID) 00:00: 05:59 mg total) H ospita 4 MG tablet 00 :00 by mouth l every 8 (eight) hours as needed (pain) for up to 3 days .acute pain. Max Daily Amount: 12 mg hydromorPHO 2022-0 2022- No [id number] 4mg Q8H Take 1 Me thodi NE 06-22 03-05 tablet (4 st (DILAUDID) 00:00: 05:59 mg total) H ospita 4 MG tablet 00 :00 by mouth l every 8 (eight) hours as needed (pain) for up to 3 days .acute pain. Max Daily Amount: 12 mg fluconazole 2022-0 2022- No 150mg Take 1.5 Methodi (Diflucan) 06-22- tablets st 100 MG 00:00: 05:59 (150 mg Hospita tablet 00 :00 total) by l mouth once for 1 dose. fluconazole 2022-0 2022- No 150mg Take 1.5 Methodi (Diflucan) 06-22- tablets st 100 MG 00:00: 05:59 (150 mg Hospita tablet 00 :00 total) by l mouth once for 1 dose. traZODone 3-0 2022- No 50mg QD Take 1 Metho di (DESYREL) 06-16 tablet (50 st 50 MG 15:26: 00:00 mg total) Hospit a tablet 31 :00 by mouth l nightly as needed for sleep. traZODone 3-0 2022- No 50mg QD Take 1 Metho di (DESYREL) 06-16 tablet (50 st 50 MG 15:26: 00:00 mg total) Hospit a tablet 31 :00 by mouth l nightly as needed for sleep. simvastatin 2022- No 40mg QD Take 1 Met hodi (ZOCOR) 40 06-16 tablet (40 st mg tablet 15:25: 00:00 mg total) Ho spita 35 :00 by mouth l daily. simvastatin 2022- No 40mg QD Take 1 Met hodi (ZOCOR) 40 06-16 tablet (40 st mg tablet 15:25: 00:00 mg total) Ho spita 35 :00 by mouth l daily. adalimumab 2022- No 80mg Q14D Inject 80 M ethodi (Humira,CF, 06-16- mg under st Pen) 80 15:22: 00:00 the skin Hospi ta mg/0.8 mL 45 :00 every 14 l pen (fourteen) injector days. kit adalimumab 2022- No 80mg Q14D Inject 80 M ethodi (Humira,CF, 06-16-[address] Pen) 80 15:22: 00:00 the skin Hospi ta mg/0.8 mL 45 :00 every 14 l pen (fourteen) injector days. kit iopamidol 2022- No [id number] 79mL 79 mL, U nivers (ISOVUE 06-08 Intravenou ity o f 370-500 mL) 23:45: 22:59 s, ONCE, 1 [place] injection 00 :00 dose, On Medica l 79 mL Wed Branch 06/08/22 at 1745, Routine bupivacaine 2022- No PRN, Unive rs -epinephrin 06-07 Starting ity of e-pf 20:11: 20:27 on Mon (SENSORCAIN 00 :34 06/07/22 at Or dical E 1411, Branch W/EPINEPHRI Until Mon NE) 0.5 06/07/22 at %-1:200,000 1427, injection Routine, Intra-op lactated 2022- No 1000mL at 42 Unive rs ringers IV 2-14 02-14 mL/hr, ity of infusion 18:15: 18:30 1,000 mL, Khris as 1,000 mL 00 :00 IV Medical Infusion, Branch ONCE, 1 dose, On Mon06/07/22 at 1215, Routine, DSU Pre-op lactated 3-0 2022- No 1000mL at 42 Unive rs ringers IV 2-14 02-14 mL/hr, ity of infusion 18:15: 18:30 1,000 mL, Khris as 1,000 mL 00 :00 IV Medical Infusion, Branch ONCE, 1 dose, On Mon06/07/22 at 1215, Routine, DSU Pre-op Cholecalcif 2022-0 Yes 2000U Take 2,000 Univers gretchen, 2-14 Units by ity of Vitamin D3, 15:12: [place]. [place] 50 mcg 18 Medical (2,000 Branch unit) capsule SIMVASTATIN 2022-0 Yes Take by Uni vers ORAL 2-14 mouth. ity of 15:12: [place] [address] Medical Branch losartan 0 Yes Take by Univer s potassium 2-14 mouth. ity of (LOSARTAN 15:12: [place] ORAL) Medical Branch Cholecalcif 0 Yes 2000U Take 2,000 Univers gretchen, 2-14 Units by ity of Vitamin D3, 15:12: mouth. [place] 50 mcg 18 Medical (2,000 Branch unit) capsule SIMVASTATIN 2022-0 Yes Take by Uni vers ORAL 2-14 mouth. ity of 15:12: [place] [address] Medical Branch losartan 0 Yes Take by Univer s potassium 2-14 mouth. ity of (LOSARTAN 15:12: [place] ORAL) 18 Medical Branch Cholecalcif 2022-0 Yes 2000U Take 2,000 Univers gretchen, 2-14 Units by ity of Vitamin D3, 15:12: mouth. [place] 50 mcg 18 Medical (2,000 Branch unit) capsule SIMVASTATIN 2022-0 Yes Take by Uni vers ORAL 2-14 mouth. ity of 15:12: [place] [address] Medical Branch losartan 2022-0 Yes Take by Univer s potassium 2-14 mouth. ity of (LOSARTAN 15:12: [place] ORAL) 18 Medical Branch Cholecalcif 2022-0 Yes 2000U Take 2,000 Univers gretchen, 2-14 Units by ity of Vitamin D3, 15:12: mouth. [place] 50 mcg 18 Medical (2,000 Branch unit) capsule SIMVASTATIN Yes Take by Uni vers ORAL 2-14 mouth. ity of 15:12: [address] Branch losartan Yes Take by Univer s potassium 2-14 mouth. ity of (LOSARTAN 15:12: [place] ORAL) 18 Medical Branch fluconazole 2022- No 100mg QD Take 1 Me thodi (Diflucan) 05-[address] 100 MG 00:00: 05:59 (100 mg Hospita tablet 00 :00 total) by l mouth daily for 3 days. fluconazole 2022- No 100mg QD Take 1 Me thodi (Diflucan) 05-[address] 100 MG 00:00: 05:59 (100 mg Hospita tablet 00 :00 total) by l mouth daily for 3 days. losartan-hy 2022- No 1{tbl} QD Take 1 M ethodi drochloroth 05-[address] iazide 07:31: 00:00 mouth Hospita (HYZAAR) 17 :00 daily. l 50-12.5 mg per tablet losartan-hy 2022- No 1{tbl} QD Take 1 M ethodi drochloroth 05-[address] iazide 07:31: 00:00 mouth Hospita (HYZAAR) 17 :00 daily. l 50-12.5 mg per tablet cefTRIAXone 2022- No 2g Q12H Infuse 2 g Methodi (ROCEPHIN) 05-[address] 2 g in 100 00:00: 05:59 venous Hosp anders ML Mini-Bag 00 :00 catheter l Plus every 12 (twelve) hours for 30 days. cefTRIAXone 2022- No 2g Q12H Infuse 2 g Methodi (ROCEPHIN) 05-26-[address] 2 g in 100 00:00: 05:59 venous Hosp anders ML Mini-Bag 00 :00 catheter l Plus every 12 (twelve) hours for 30 days. ondansetron 2022- No [id number] 4mg Q8H Take 1 Methodi ODT 05-26 tablet (4 st (ZOFRAN-ODT 00:00: 00:00 mg total) Hospita ) 4 MG 00 :00 by mouth l disintegrat every 8 ing tablet (eight) hours as needed for nausea or vomiting for up to 30 days. losartan-hy 2022- No 1{tbl} QD Take 1 M ethodi drochloroth 05-[address] iazide 00:00: 00:00 mouth Hospita (HYZAAR) 00 :00 daily for l 50-12.5 mg 30 days. per tablet sennosides- 2022- No 1{tbl} QD Take 1 M ethodi docusate 05-[address] sodium 00:00: 00:00 mouth Hospita (SENOKOT-S) 00 :00 nightly l 8.6-50 mg for 30 per tablet days. simethicone 2022- No 80mg Q6H Chew 1 Met hodi (MYLICON) 05-26 tablet (80 st 80 MG 00:00: 00:00 mg total) Hospit a chewable 00 :00 every 6 l tablet (six) hours for 30 days. hydromorPHO 2022- No [id number] 8mg Q.25D Take 1 M ethodi NE 05-26 tablet (8 st (DILAUDID) 00:00: 00:00 mg total) H ospita 8 MG tablet 00 :00 by mouth l every 6 (six) hours .acute pain. Max Daily Amount: 32 mg methocarbam 2022- No 750mg Q.25D Take 1 M ethodi oL 05-[address] (ROBAXIN) 00:00: 00:00 (750 mg Hosp anders 750 MG 00 :00 total) by l tablet mouth 4 (four) times a day for 30 days. vancomycin 2022- No 2000mg Q12H Infuse Me thodi 2,000 mg in 05-26 2,[address] sodium 00:00: 00:00 into a Hospita chloride 00 :00 venous l 0.9% 500 mL catheter IVPB every 12 (twelve) hours for 30 days. zinc 2022- No 1{capsu QD Take 1 Methodi sulfate 05-26 le} capsule by st (ZINCATE) 00:00: 00:00 mouth Hospit a 50 mg zinc 00 :00 daily for l (220 mg) 30 days. capsule ondansetron 2022- No [id number] 4mg Q8H Take 1 Methodi ODT 05-26 tablet (4 st (ZOFRAN-ODT 00:00: 00:00 mg total) Hospita ) 4 MG 00 :00 by mouth l disintegrat every 8 ing tablet (eight) hours as needed for nausea or vomiting for up to 30 days. losartan-hy 2022- No 1{tbl} QD Take 1 M ethodi drochloroth 05-[address] iazide 00:00: 00:00 mouth Hospita (HYZAAR) 00 :00 daily for l 50-12.5 mg 30 days. per tablet sennosides- 2022- No 1{tbl} QD Take 1 M ethodi docusate 05-[address] sodium 00:00: 00:00 mouth Hospita (SENOKOT-S) 00 :00 nightly l 8.6-50 mg for 30 per tablet days. simethicone 2022- No 80mg Q6H Chew 1 Met hodi (MYLICON) 05-26 tablet (80 st 80 MG 00:00: 00:00 mg total) Hospit a chewable 00 :00 every 6 l tablet (six) hours for 30 days. hydromorPHO 2022- [place] [id number] 8mg Q.25D Take 1 M ethodi NE 05-26 tablet (8 st (DILAUDID) 00:00: 00:00 mg total) H ospita 8 MG tablet 00 :00 by mouth l every 6 (six) hours .acute pain. Max Daily Amount: 32 mg methocarbam 2022- No 750mg Q.25D Take 1 M ethodi oL 05-[address] (ROBAXIN) 00:00: 00:00 (750 mg Hosp anders 750 MG 00 :00 total) by l tablet mouth 4 (four) times a day for 30 days. vancomycin No 2000mg Q12H Infuse Me thodi 2,000 mg in 05-26 2,[address] sodium 00:00: 00:00 into a Hospita chloride 00 :00 venous l 0.9% 500 mL catheter IVPB every 12 (twelve) hours for 30 days. zinc 2022- No 1{capsu QD Take 1 Methodi sulfate 05-26 le} capsule by st (ZINCATE) 00:00: 00:00 mouth Hospit a 50 mg zinc 00 :00 daily for l (220 mg) 30 days. capsule losartan-hy 2021-04 1{tbl} QD Take 1 M ethodi drochloroth 06-20 12-25 tablet by iazidcarlos 17:20: 00:00 [facility] (HYZAAR) 03 :00 daily. l 50-12.5 mg per tablet losartan 2021-04 QD Take by [facility]o di (COZAAR) 25 2-27 12-[address] MG tablet 17:20: 00:00 daily. Hospi ta 03 :00 Patient l unsure of dose losartan-hy 2021-04 No 1{tbl} QD Take 1 M ethodi drochloroth 06-20 12-[address] iazide 17:20: 00:00 [facility] (HYZAAR) 03 :00 daily. l 50-12.5 mg per tablet losartan 2021-04 QD Take by [facility] (COZAAR) 25 2-27 12-[address] MG tablet 17:20: 00:00 daily. Hospi ta 03 :00 Patient l unsure of dose famotidine 2021-04 No [id number] 20mg Q.5D Take 1 [facility] (PEPCID) 20 -19 06- tablet (20 s t MG tablet 00:00: 00:00 mg total) [facility] 00 :00 by mouth 2 l (two) times a day for 30 days. simethicone 2021-04 No 80mg Q6H Chew 1 [facility] (MYLICON) 2-19 06- tablet (80 st 80 MG 00:00: 00:00 mg total) Hospit a chewable 00 :00 every 6 l tablet (six) hours for 30 days. polyethylen 2021-04- No 17g QD Take 17 g [facility] e glycol 06-[address] (MIRALAX) 00:00: 00:00 daily for [facility] 17 gram 00 :00 30 days. l packet sennosides- 2021-04- No 1{tbl} QD Take 1 M ethodi docusate 06-[address] sodium 00:00: 00:00 [facility] (SENOKOT-S) 00 :00 nightly l 8.6-50 mg for 30 per tablet days. ondansetron 2021-04- No [id number] 4mg Q8H Take 1 [facility] ODT 06-19 tablet (4 st (ZOFRAN-ODT 00:00: 00:00 mg total) Hospita ) 4 MG 00 :00 by mouth l disintegrat every 8 ing tablet (eight) hours as needed for nausea or vomiting. famotidine 2021-04- No [id number] 20mg Q.5D Take 1 [facility] (PEPCID) 20 06-19 tablet (20 s t MG tablet 00:00: 00:00 mg total) [facility] 00 :00 by mouth 2 l (two) times a day for 30 days. simethicone 2021-04- No 80mg Q6H Chew 1 [facility] (MYLICON) 06-19 tablet (80 st 80 MG 00:00: 00:00 mg total) Hospit a chewable 00 :00 every 6 l tablet (six) hours for 30 days. polyethylen 2021-04- No 17g QD Take 17 g Methodi e glycol 06-[address] (MIRALAX) 00:00: 00:00 daily for [facility] 17 gram 00 :00 30 days. l packet sennosides- 2021-04- No 1{tbl} QD Take 1 M ethodi docusate 06-[address] sodium 00:00: 00:00 [facility] (SENOKOT-S) 00 :00 nightly l 8.6-50 mg for 30 per tablet days. ondansetron 2021-04- No [id number] 4mg Q8H Take 1 [facility] ODT 06-19-02 tablet (4 st (ZOFRAN-ODT 00:00: 00:00 mg total) Hospita ) 4 MG 00 :00 by mouth l disintegrat every 8 ing tablet (eight) hours as needed for nausea or vomiting. dicyclomine 2021-04- No 20mg Q.25D Take 2 [facility] (BENTYL) 10 06-19-[address] MG capsule 00:00: 00:00 (20 mg Hosp anders 00 :00 total) by l mouth 4 (four) times a day for 30 days. dicyclomine 2021-04- No 20mg Q.25D Take 2 [facility] (BENTYL) 10 06-19-[address] MG capsule 00:00: 00:00 (20 mg [facility]osp [facility]ers 00 :00 total) by l mouth 4 (four) times a day for 30 days. metoclopram 2021-04- No 5mg Q6H Infuse 1 M ethodi regina 06-19 01-06 mL ([address] (REGLAN) 5 00:00: 05:59 total) [facility]osp [facility] mg/mL 00 :00 into a l injection venous catheter every 6 (six) hours as needed for nausea for up to 10 days. metoclopram 2021-04- No 5mg Q6H Infuse 1 M ethodi regina - 01-06 mL ([address] (REGLAN) 5 00:00: 05:59 total) [facility] mg/mL 00 :00 into a l injection venous catheter every 6 (six) hours as needed for nausea for up to 10 days. ZINC ORAL 2021-04- No Take by Meth rebecca 2-25 12-[address] 09:19: 00:00 [facility]ospita 20 :00 l ZINC ORAL 2021-04- No Take by Meth rebecca 2-25 12-[address] 09:19: 00:00 Hospita 20 :00 l POTASSIUM 2021-04- No Take by Meth rebecca ORAL 2-25 12-[address] 09:19: 00:00 Hospita 14 :00 l POTASSIUM 2021-04- No Take by Meth rebecca ORAL 2-25 12-[address] 09:19: 00:00 [facility]ospita 14 :00 l ondansetron 2021-04- No 4mg 4 mg, Slow Univers (ZOFRAN 06-07 IV Push, ity of (PF)) 04:15: 05:56 ONCE, 1 [place] injection 4 00 :00 dose, On Medi sasha mg Tue Branch 04/05/22 at 2215, AZEB morpHINE (4 2021-04- No 4mg 4 mg, Slow Univers mg/mL) 06-07 IV Push, ity of injection 4 04:15: 05:56 ONCE, 1 [place] mg 00 :00 dose, On Medical Tue Branch 04/05/22 at 2215, STAT tc 2021-04- No [id number] 1.1mCi 1.1 Univer s 99m-sulfur 05-29 millicurie it y of colloid 14:45: 14:37 , Oral, [place] oral 00 :00 ONCE, 1 Medical solution dose, On Branch 1.1 Mon millicurie 03/28/22 at 0845, Routine lactulose 2021-04 Yes [id number] 30mL Take 30 mL Univers 10 gram/15 1-11 by mouth 3 ity of mL oral 00:00: (three) [place] solution 00 times Medical daily as Branch needed for Constipati on or For bowel movement. lactulose 2021-04 Yes [id number] 30mL Take 30 mL Univers 10 gram/15 1-11 by mouth 3 ity of mL oral 00:00: (three) [place] solution 00 times Medical daily as Branch needed for Constipati on or For bowel movement. lactulose 2021-04 Yes [id number] 30mL Take 30 mL Univers 10 gram/15 1-11 by mouth 3 ity of mL oral 00:00: (three) [place] solution 00 times Medical daily as Branch needed for Constipati on or For bowel movement. lactulose 2021-04 Yes [id number] 30mL Take 30 mL Univers 10 gram/15 1-11 by mouth 3 ity of mL oral 00:00: (three) [place] solution 00 times Medical daily as Branch needed for Constipati on or For bowel movement. lactulose 2021-04 Yes [id number] 30mL Take 30 mL Univers 10 gram/15 1-11 by mouth 3 ity of mL oral 00:00: (three) [place] solution 00 times Medical daily as Branch needed for Constipati on or For bowel movement. lactulose 2021-04 Yes [id number] 30mL Take 30 mL Univers 10 gram/15 1-11 by mouth 3 ity of mL oral 00:00: (three) [place] solution 00 times Medical daily as Branch needed for Constipati on or For bowel movement. lactulose 2021-04 Yes [id number] 30mL Take 30 mL Univers 10 gram/15 1-11 by mouth 3 ity of mL oral 00:00: (three) [place] solution 00 times Medical daily as Branch needed for Constipati on or For bowel movement. lactulose 2021-04 Yes [id number] 30mL Take 30 mL Univers 10 gram/15 1-11 by mouth 3 ity of mL oral 00:00: (three) [place] solution 00 times Medical daily as Branch needed for Constipati on or For bowel movement. lactulose 2021-04 Yes [id number] 30mL Take 30 mL Univers 10 gram/15 1-11 by mouth 3 ity of mL oral 00:00: (three) [place] solution 00 times Medical daily as Branch needed for Constipati on or For bowel movement. lactulose 2021-04 Yes [id number] 30mL Take 30 mL Univers 10 gram/15 1-11 by mouth 3 ity of mL oral 00:00: (three) [place] solution 00 times Medical daily as Branch needed for Constipati on or For bowel movement. hydrocortis 2021-04- No [id number] 25mg Insert 1 Univers one 05-04 11-19 Suppositor ity of (ANUSOL-HC) 00:00: 05:59 y into [place] as 25 mg 00 :00 rectum in Medical suppository the Branch morning and 1 Suppositor y in the evening. Do all this for 7 days. Cholecalcif 2021-04 Yes 2000U Take 2,000 [facility] gretchen, 0-30 Units by ity of Vitamin D3, 17:01: [place] 50 m[place] 06 Medical (2,000 Branch unit) capsule SIMVASTATIN 2021-04 Yes Take by Uni vers ORAL 0-30 mouth. ity of 17:01: [place] 06 Medical Branch losartan 2021-04 Yes Take by Univer s potassium 0-30 mouth. ity of (LOSARTAN 17:01: [place] ORAL) 06 Medical Branch Cholecalcif 2021-04 Yes 2000U Take 2,000 Univers gretchen, 0-30 Units by ity of Vitamin D3, 17:01: [place]. [place] 50 mcg 06 Medical (2,000 Branch unit) capsule SIMVASTATIN 2021-04 Yes Take by Uni vers ORAL 0-30 mouth. ity of 17:01: [address] losartan 2021-04 Yes Take by Univer s potassium 0-30 mouth. ity of (LOSARTAN 17:01: [place] ORAL) Medical Branch Cholecalcif 2021-04 Yes 2000U Take 2,000 Univers gretchen, 0-30 Units by ity of Vitamin D3, 17:01: [place]. [place] 50 mcg 06 Medical (2,000 Branch unit) capsule SIMVASTATIN 2021-04 Yes Take by Uni vers ORAL 0-30 mouth. ity of 17:01: [address] losartan 2021-04 Yes Take by Univer s potassium 0-30 mouth. ity of (LOSARTAN 17:01: [place] ORAL) [facility] Branch Cholecalcif 2021-04 Yes 2000U Take 2,000 Univers gretchen, 0-30 Units by ity of Vitamin D3, 17:01: [place] 50 mcg 06 Medical (2,000 Branch unit) capsule SIMVASTATIN 2021-04 Yes Take by Uni vers ORAL 0-30 mouth. ity of 17:01: [address] losartan 2021-04 Yes Take by Univer s potassium 0-30 mouth. ity of (LOSARTAN 17:01: [place] ORAL) [address] [place] [address] Branch Cholecalcif 2021-04 Yes 2000U Take 2,000 Univers gretchen, 0-30 Units by ity of Vitamin D3, 17:01: [place]. [place] 50 mcg 06 Medical (2,000 Branch unit) capsule SIMVASTATIN 2021-04 Yes Take by Uni vers ORAL 0-30 mouth. ity of 17:01: [address] losartan 2021-04 Yes Take by Univer s potassium 0-30 mouth. ity of (LOSARTAN 17:01: [place] ORAL) [address] [place] [address] Branch Cholecalcif 2021-04 Yes 2000U Take 2,000 Univers gretchen, 0-30 Units by ity of Vitamin D3, 17:01: [place]. [place] 50 mcg 06 Medical (2,000 Branch unit) capsule SIMVASTATIN 2021-04 Yes Take by Uni vers ORAL 0-30 mouth. ity of 17:01: [place] [address] Medical Branch losartan 2021-04 Yes Take by Univer s potassium 0-30 mouth. ity of (LOSARTAN 17:01: [place] ORAL) 06 Medical Branch Cholecalcif 2021-04 Yes 2000U Take 2,000 Univers gretchen, 0-30 Units by ity of Vitamin D3, 17:01: [place]. [place] 50 mcg 06 Medical (2,000 Branch unit) capsule SIMVASTATIN 2021-04 Yes Take by Uni vers ORAL 0-30 mouth. ity of 17:01: [place] [facility] losartan 2021-04 Yes Take by Univer s potassium 0-30 mouth. ity of (LOSARTAN 17:01: [place] ORAL) 06 Medical Branch Cholecalcif 2021-04 Yes 2000U Take 2,000 Univers gretchen, 0-30 Units by ity of Vitamin D3, 17:01: [place]. [place] 50 mcg 06 Medical (2,000 Branch unit) capsule SIMVASTATIN 2021-04 Yes Take by Uni vers ORAL 0-30 mouth. ity of 17:01: [place] [address] Medical Branch losartan 2021-04 Yes Take by Univer s potassium 0-30 mouth. ity of (LOSARTAN 17:01: [place] ORAL) 06 Medical Branch NAPROXEN 2021-04- No Take by Unive rs SODIUM 0-30 10-30 mouth. ity of (ALEVE 13:39: 00:00 [place] ORAL) 51 :00 Medical Branch sennosides- 2021-04 Yes [id number] 1{tbl} Take 1 Univers docusate 0-30 tablet by ity of sodium 00:00: mouth in [place] 8.6-50 mg 00 the Medical per tablet morning Branch and 1 tablet in the evening. ondansetron 2021-04 Yes [id number] 4mg Take 1 Univers 4 mg tablet 0-30 tablet by ity of 00:00: mouth [place] 00 every 8 Medical (eight) Branch hours as needed for Nausea and Vomiting (N/V) for up to 15 doses. HYDROcodone 2021-04 Yes [id number] 1{tbl} Take 1 Un marsha -acetaminop 0-30 tablet by ity of hen 5-325 00:00: mouth [place] mg tablet 00 every 6 Medical (six) Branch hours as needed for Pain (scale 4-6) for up to 7 doses. Indication s: acute pain sennosides- 2021-04 Yes [id number] 1{tbl} Take 1 Univers docusate 0-30 tablet by ity of sodium 00:00: mouth in [place] 8.6-50 mg 00 the Medical per tablet morning Branch and 1 tablet in the evening. ondansetron 2021-04 Yes [id number] 4mg Take 1 Univers 4 mg tablet 0-30 tablet by ity of 00:00: mouth [place] 00 every 8 Medical (eight) Branch hours as needed for Nausea and Vomiting (N/V) for up to 15 doses. HYDROcodone 2021-04 Yes [id number] 1{tbl} Take 1 Un marsha -acetaminop 0-30 tablet by ity of hen 5-325 00:00: mouth [place] mg tablet 00 every 6 Medical (six) Branch hours as needed for Pain (scale 4-6) for up to 7 doses. Indication s: acute pain sennosides- 2021-04 Yes [id number] 1{tbl} Take 1 Univers docusate 0-30 tablet by ity of sodium 00:00: mouth in [place] 8.6-50 mg 00 the Medical per tablet morning Branch and 1 tablet in the evening. ondansetron 2021-04 Yes [id number] 4mg Take 1 Univers 4 mg tablet 0-30 tablet by ity of 00:00: mouth [place] 00 every 8 Medical (eight) Branch hours as needed for Nausea and Vomiting (N/V) for up to 15 doses. HYDROcodone 2021-04 Yes [id number] 1{tbl} Take 1 Un marsha -acetaminop 0-30 tablet by ity of hen 5-325 00:00: mouth [place] mg tablet 00 every 6 Medical (six) Branch hours as needed for Pain (scale 4-6) for up to 7 doses. Indication s: acute pain sennosides- 2021-04 Yes [id number] 1{tbl} Take 1 Univers docusate 0-30 tablet by ity of sodium 00:00: mouth in [place] 8.6-50 mg 00 the Medical per tablet morning Branch and 1 tablet in the evening. ondansetron 2021-04 Yes [id number] 4mg Take 1 Univers 4 mg tablet 0-30 tablet by ity of 00:00: mouth [place] 00 every 8 Medical (eight) Branch hours as needed for Nausea and Vomiting (N/V) for up to 15 doses. HYDROcodone 2021-04 Yes [id number] 1{tbl} Take 1 Un marsha -acetaminop 0-30 tablet by ity of hen 5-325 00:00: mouth [place] mg tablet 00 every 6 Medical (six) Branch hours as needed for Pain (scale 4-6) for up to 7 doses. Indication s: acute pain sennosides- 2021-04 Yes [id number] 1{tbl} Take 1 Univers docusate 0-30 tablet by ity of sodium 00:00: mouth in [place] 8.6-50 mg 00 the Medical per tablet morning Branch and 1 tablet in the evening. ondansetron 2021-04 Yes [id number] 4mg Take 1 Univers 4 mg tablet 0-30 tablet by ity of 00:00: mouth [place] 00 every 8 Medical (eight) Branch hours as needed for Nausea and Vomiting (N/V) for up to 15 doses. HYDROcodone 2021-04 Yes [id number] 1{tbl} Take 1 Un marsha -acetaminop 0-30 tablet by ity of hen 5-325 00:00: mouth [place] mg tablet 00 every 6 Medical (six) Branch hours as needed for Pain (scale 4-6) for up to 7 doses. Indication s: acute pain sennosides- 2021-04 Yes [id number] 1{tbl} Take 1 Univers docusate 0-30 tablet by ity of sodium 00:00: mouth in [place] 8.6-50 mg 00 the Medical per tablet morning Branch and 1 tablet in the evening. ondansetron 2021-04 Yes [id number] 4mg Take 1 Univers 4 mg tablet 0-30 tablet by ity of 00:00: mouth [place] 00 every 8 Medical (eight) Branch hours as needed for Nausea and Vomiting (N/V) for up to 15 doses. HYDROcodone 2021-04 Yes [id number] 1{tbl} Take 1 Un marsha -acetaminop 0-30 tablet by ity of hen 5-325 00:00: mouth [place] mg tablet 00 every 6 Medical (six) Branch hours as needed for Pain (scale 4-6) for up to 7 doses. Indication s: acute pain sennosides- 2021-04 Yes [id number] 1{tbl} Take 1 Univers docusate 0-30 tablet by ity of sodium 00:00: mouth in [place] 8.6-50 mg 00 the Medical per tablet morning Branch and 1 tablet in the evening. ondansetron 2021-04 Yes [id number] 4mg Take 1 Univers 4 mg tablet 0-30 tablet by ity of 00:00: mouth [place] 00 every 8 Medical (eight) Branch hours as needed for Nausea and Vomiting (N/V) for up to 15 doses. HYDROcodone 2021-04 Yes [id number] 1{tbl} Take 1 Un marsha -acetaminop 0-30 tablet by ity of hen 5-325 00:00: mouth [place] mg tablet 00 every 6 Medical (six) Branch hours as needed for Pain (scale 4-6) for up to 7 doses. Indication s: acute pain sennosides- 2021-04 Yes [id number] 1{tbl} Take 1 Univers docusate 0-30 tablet by ity of sodium 00:00: mouth in [place] 8.6-50 mg 00 the Medical per tablet morning Branch and 1 tablet in the evening. ondansetron 2021-04 Yes [id number] 4mg Take 1 Univers 4 mg tablet 0-30 tablet by ity of 00:00: mouth [place] 00 every 8 Medical (eight) Branch hours as needed for Nausea and Vomiting (N/V) for up to 15 doses. HYDROcodone 2021-04 Yes [id number] 1{tbl} Take 1 Un marsha -acetaminop 0-30 tablet by ity of hen 5-325 00:00: mouth [place] mg tablet 00 every 6 Medical (six) Branch hours as needed for Pain (scale 4-6) for up to 7 doses. Indication s: acute pain sennosides- 2021-04 Yes [id number] 1{tbl} Take 1 Univers docusate 0-30 tablet by ity of sodium 00:00: mouth in [place] 8.6-50 mg 00 the Medical per tablet morning Branch and 1 tablet in the evening. ondansetron 2021-04 Yes [id number] 4mg Take 1 Univers 4 mg tablet 0-30 tablet by ity of 00:00: mouth [place] 00 every 8 Medical (eight) Branch hours as needed for Nausea and Vomiting (N/V) for up to 15 doses. HYDROcodone 2021-04 Yes [id number] 1{tbl} Take 1 Un marsha -acetaminop 0-30 tablet by ity of hen 5-325 00:00: mouth [place] mg tablet 00 every 6 Medical (six) Branch hours as needed for Pain (scale 4-6) for up to 7 doses. Indication s: acute pain sennosides- 2021-04 Yes [id number] 1{tbl} Take 1 Univers docusate 0-30 tablet by ity of sodium 00:00: mouth in [place] 8.6-50 mg 00 the Medical per tablet morning Branch and 1 tablet in the evening. ondansetron 2021-04 Yes [id number] 4mg Take 1 Univers 4 mg tablet 0-30 tablet by ity of 00:00: mouth [place] 00 every 8 Medical (eight) Branch hours as needed for Nausea and Vomiting (N/V) for up to 15 doses. HYDROcodone 2021-04 Yes [id number] 1{tbl} Take 1 Un marsha -acetaminop 0-30 tablet by ity of hen 5-325 00:00: mouth [place] mg tablet 00 every 6 Medical (six) Branch hours as needed for Pain (scale 4-6) for up to 7 doses. Indication s: acute pain sennosides- 2021-04 Yes [id number] 1{tbl} Take 1 Univers docusate 0-30 tablet by ity of sodium 00:00: mouth in [place] 8.6-50 mg 00 the Medical per tablet morning Branch and 1 tablet in the evening. ondansetron 2021-04 Yes [id number] 4mg Take 1 Univers 4 mg tablet 0-30 tablet by ity of 00:00: mouth [place] 00 every 8 Medical (eight) Branch hours as needed for Nausea and Vomiting (N/V) for up to 15 doses. HYDROcodone 2021-04 Yes [id number] 1{tbl} Take 1 Un marsha -acetaminop 0-30 tablet by ity of hen 5-325 00:00: mouth [place] mg tablet 00 every 6 Medical (six) Branch hours as needed for Pain (scale 4-6) for up to 7 doses. Indication s: acute pain sennosides- 2021-04 Yes [id number] 1{tbl} Take 1 Univers docusate 0-30 tablet by ity of sodium 00:00: mouth in [place] 8.6-50 mg 00 the Medical per tablet morning Branch and 1 tablet in the evening. ondansetron 2021-04 Yes [id number] 4mg Take 1 Univers 4 mg tablet 0-30 tablet by ity of 00:00: mouth [place] 00 every 8 Medical (eight) Branch hours as needed for Nausea and Vomiting (N/V) for up to 15 doses. HYDROcodone 2021-04 Yes [id number] 1{tbl} Take 1 Un marsha -acetaminop 0-30 tablet by ity of hen 5-325 00:00: mouth [place] mg tablet 00 every 6 Medical (six) Branch hours as needed for Pain (scale 4-6) for up to 7 doses. Indication s: acute pain HYDROcodone 2021-04 Yes 1{tbl} 1 tablet, Univers -acetaminop 0-28 Oral, ity of hen (NORCO 23:42: Q6HPRN, [place] 5) 5-325 mg 38 Starting Medi sasha tablet 1 on Mon Branch tablet 02/18/22 at 1842, Until Discontinu ed, Routine, Pain (scale 4-6) lactated 2021-04 Yes 1000mL at 100 Unive rs ringers IV 0-27 mL/hr, ity of infusion 22:45: 1,000 mL, [place] 1,000 mL 00 IV Medical Infusion, Branch CONTINUOUS , Starting on Lou 02/17/22 at 1745, Until Discontinu ed, Routine, PACU ondansetron 2021-04- No 4mg 4 mg, Slow Univers (ZOFRAN 0-02-17 IV Push, ity of (PF)) 22:42: 22:43 PRN, 1 [place] injection 4 51 :00 dose, Medical mg Starting Branch on [place] 02/17/22 at 1742, Until [place] 02/17/22 at 1743, Routine, Nausea and Vomiting (N/V), PACU bupivacaine 2021-04- No PRN, Unive rs -epinephrin 0-02-17 Starting ity of e-pf 21:45: 22:00 on [facility] (SENSORCAIN 00 :25 02/17/22 Medi sasha E at 1645, Branch W/EPINEPHRI Until [facility]) 0.25 02/17/22 %-1:200,000 at 1700, injection Routine, Intra-op sodium 2021-04- No PRN, Univers chloride 0-27 10-27 Starting ity of 0.9 % 20:34: 22:00 on Lou [place] irrigation 00 :25 02/17/22 Medic al solution at 1534, Branch Until Mon02/17/22 at 1700, Intra-op SIMVASTATIN 2021-04 Yes Take by Uni vers ORAL 0-27 mouth. ity of 19:37: [place] 04 [facility] Branch losartan 2021-04 Yes Take by Univer s potassium 0-27 mouth. ity of (LOSARTAN 19:37: [place] ORAL) [facility] lactated 2021-04 Yes 1000mL at 50 Univer s ringers IV 0-26 mL/hr, ity of infusion 22:30: 1,000 mL, [place] 1,000 mL 00 IV Medical Infusion, Branch CONTINUOUS , Starting on Mon02/16/22 at 1730, Until Discontinu ed, Routine lactated 2021-04- No 1000mL at 50 Unive rs ringers IV 0-26 10-28 mL/hr, ity of infusion 22:30: 21:38 1,000 mL, [place] as 1,000 mL 00 :05 IV Medical Infusion, Branch CONTINUOUS , Starting on Mon02/16/22 at 1730, Until Mon02/18/22 at 1638, Routine losartan 2021-04 Yes 25mg 25 mg, Univers (COZAAR) 0-24 Oral, ity of tablet 25 14:00: DAILY, [place] mg 00 First dose Medical on Mon [place] 02/14/22 at 0900, Until Discontinu ed, Routine losartan 2021-04 Yes 25mg 25 mg, Univers (COZAAR) 0-24 Oral, ity of tablet 25 14:00: DAILY, [place] mg 00 First dose Medical on Mon [place] 02/14/22 at 0900, Until Discontinu ed, Routine polyethylen 2021-04 Yes 17g 17 g, Unive rs e glycol 0-23 Oral, ity of 3350 powder 14:00: DAILY, [place] 17 g 00 First dose Medical on [facility] 02/13/22 at 0900, Until Discontinu ed, Routine polyethylen 2021-04 Yes 17g 17 g, Unive rs e glycol 0-23 Oral, ity of 3350 powder 14:00: DAILY, [place] 17 g 00 First dose Medical on [place] Branch 02/13/22 at 0900, Until Discontinu ed, Routine morpHINE (2021-04 Yes 2mg 2 mg, Slow Univers mg/mL) 0-23 IV Push, ity of injection 2 04:15: Q4HPRN, [place] mg 03 Starting Medical on [facility] Branch 02/12/22 at 2315, Until Discontinu ed, Routine, Pain (scale 7-10) morpHINE (2 2021-04 Yes 2mg 2 mg, Slow Univers mg/mL) 0-23 IV Push, ity of injection 2 04:15: Q4HPRN, [place] as mg 03 Starting Medical on [facility] Branch 02/12/22 at 2315, Until Discontinu ed, Routine, Pain (scale 7-10) sennosides- 2021-04 Yes 1{tbl} 1 tablet, Univers docusate 0-23 Oral, BID, ity o f sodium 01:00: First dose [place] (SENOKOT-S) 00 on Sat Medica l 8.6-50 mg 02/12/22 Branch per tablet at 2000, 1 tablet Until Discontinu ed, Routine sennosides- 2021-04 Yes 1{tbl} 1 tablet, Univers docusate 0-23 Oral, BID, ity o f sodium 01:00: First dose [place] (SENOKOT-S) 00 on Sat Medica l 8.6-50 mg 02/12/22 Branch per tablet at 2000, 1 tablet Until Discontinu ed, Routine Sliding 2021-04 Yes Subcutaneo Univ ers Scale 0-22 us, TID ity of Insulin - 17:00: MEALS+HS, Hkris as Lispro 00 First dose Medical (HumaLOG) + on [facility] Branch Fsbg 02/12/22 Testing at 1200, Until Discontinu ed, Routine Sliding 2021-04- No Subcutaneo Uni vers Scale 0-22 10-28 us, TID ity of Insulin - 17:00: 23:42 MEALS+HS, [place] Lispro 00 :58 First dose Medical (HumaLOG) + on [facility] Branch Fsbg 02/12/22 Testing at 1200, Until Discontinu ed, Routine lactated 2021-04- No 1000mL at 100 [facility] ers ringers IV 0-22 10-26 mL/hr, ity of infusion 17:00: 22:17 1,000 mL, [place] as 1,000 mL 00 :05 IV Medical Infusion, Branch CONTINUOUS , Starting on 02/12/22 at 1200, Until 02/16/22 at 1717, Routine dextrose 2021-04 Yes 250mL 250 mL, IV Un marsha 10% (D10W) 0-22 Infusion, ity of bolus 15:27: PRN - SEE [place] infusion 13 INSTRUCTIO Medic al 250 mL NS, Branch Administer over 60 Minutes, Other, If blood glucose is < or = 70 mg/dL and patient is unable to swallow or has mental status changes, Starting on 02/12/22 at 1027
If blood glucose is < or = 70 mg/dL and patient is unable to swallow or has mental status changes (Give glucagon order if patient needs fluid restrictio n): IF IV access available: Dextrose 10%. 1. 125 mL (? bag) of D10W IV infusion - equivalent to 12.5 g dextrose 2. Blood glucose - draw blood glucose 15 minutes after D10W Administra tion. 3. If blood glucose is < 80 mg/dL, repeat.
dextrose 2021-04 Yes 250mL 250 mL, IV Un marsha 10% (D10W) 0-22 Infusion, ity of bolus 15:27: PRN - SEE [place] infusion 13 INSTRUCTIO Medic al 250 mL NS, Branch Administer over 60 Minutes, Other, If blood glucose is < or = 70 mg/dL and patient is unable to swallow or has mental status changes, Starting on 02/12/22 at 1027
If blood glucose is < or = 70 mg/dL and patient is unable to swallow or has mental status changes (Give glucagon order if patient needs fluid restrictio n): IF IV access available: Dextrose 10%. 1. 125 mL (? bag) of D10W IV infusion - equivalent to 12.5 g dextrose 2. Blood glucose - draw blood glucose 15 minutes after D10W Administra tion. 3. If blood glucose is < 80 mg/dL, repeat.
glucagon 2021-04 Yes 1mg 1 mg, Univers (GLUCAGEN 0-22 Intramuscu ity of DIAGNOSTIC 15:27: [place], PRN, [place] KIT) 10 Starting Medical injection 1 on Sat Branch mg 02/12/22 at 1027, Until Discontinu ed, AZEB, Blood Glucose < or = 70 mg/dL and patient is unable to swallow or has mental changes. glucagon 2021-04 Yes 1mg 1 mg, Univers (GLUCAGEN 0-22 Intramuscu ity of DIAGNOSTIC 15:27: [place], PRN, [place] KIT) 10 Starting Medical injection 1 on Sat Branch mg 02/12/22 at 1027, Until Discontinu ed, AZEB, Blood Glucose < or = 70 mg/dL and patient is unable to swallow or has mental changes. ondansetron 2021-04 Yes 4mg 4 mg, Slow Univers (ZOFRAN 0-21 IV Push, ity of (PF)) 20:09: Q6HPRN, [place] injection 4 04 Nausea and Me dical mg Vomiting Branch (N/V), Starting on Mon02/11/22 at 1509
Do ses of ondansetro n 16 mg and above need to be administer ed via IV piggyback. For Dose >=24mg ECG monitoring is advisable.
ondansetron 2021-04 Yes 4mg 4 mg, Slow Univers (ZOFRAN 0-21 IV Push, ity of (PF)) 20:09: Q6HPRN, [place] injection 4 04 Nausea and Me dical mg Vomiting Branch (N/V), Starting on Mon02/11/22 at 1509
Do ses of ondansetro n 16 mg and above need to be administer ed via IV piggyback. For Dose >=24mg ECG monitoring is advisable.
nicotine 2021-04 Yes 1{patch 1 Patch, [facility] [place] (NICODERM) 0-21 } Topical, ity o f 21 mg/24 hr 19:30: Administer [place] patch 1 00 over 24 Medical Patch Hours, Branch Q24H, First dose on Mon02/11/22 at 1430, Until Discontinu ed, Routine nicotine 2021-04 Yes 1{patch 1 Patch, [facility] [place] (NICODERM) 0-21 } Topical, ity o f 21 mg/24 hr 19:30: Administer [place] patch 1 00 over 24 Medical Patch Hours, Branch Q24H, First dose on Mon02/11/22 at 1430, Until Discontinu ed, Routine enoxaparin 2021-04 Yes 40mg 40 mg, Unive [facility] (LOVENOX) 0-21 Subcutaneo ity of injection 14:00: [place], [place]ILY, [place] 40 mg 00 First dose Medical on Mon Branch 02/11/22 at 0900, Until Discontinu ed, Routine enoxaparin 2021-04 Yes 40mg 40 mg, Unive rs (LOVENOX) 0-21 Subcutaneo ity of injection 14:00: [place], [place]ILY, [place] 40 mg 00 First dose Medical on Mon [place] 02/11/22 at 0900, Until Discontinu ed, Routine lactated 2021-04 1000mL at 150 Univ ers ringers IV 0-21 10-22 mL/hr, ity of infusion 02:00: 16:58 1,000 mL, [place] 1,000 mL 00 :00 IV Medical Infusion, Branch CONTINUOUS , Starting on [facility] 02/10/22 at 2100, Until [facility] 02/12/22 at 1158, Routine DULoxetine 2021-04 Yes 60mg 60 mg, Unive [facility] (CYMBALTA) 0-21 Oral, BID, ity of capsule 60 01:00: First dose [place] mg 00 on [facility] 02/10/22 Branch at 2000, Until Discontinu ed, Routine DULoxetine 2021-04 Yes 60mg 60 mg, Unive rs (CYMBALTA) 0-21 Oral, BID, ity of capsule 60 01:00: First dose [place] mg 00 on [facility] 02/10/22 Branch at 2000, Until Discontinu ed, Routine hydralAZINE 2021-04 Yes 5mg 5 mg, Slow Univers (APRESOLINE 0-21 IV Push, ity of ) injection 00:49: Q4HPRN, [place] 5 mg 10 Starting Medical on [facility] 02/10/22 at 1949, Until Discontinu ed, Routine, DBP=>10 0; SBP=>160, For SBP > 160 hydralAZINE 2021-04 Yes 5mg 5 mg, Slow Univers (APRESOLINE 0-21 IV Push, ity of ) injection 00:49: Q4HPRN, [place] 5 mg 10 Starting Medical on [place] Branch 02/10/22 at 1949, Until Discontinu ed, Routine, DBP=>10 0; SBP=>160, For SBP > 160 morpHINE (4 2021-04- No 4mg 4 mg, Slow [facility] mg/mL) 0-20 10-21 IV Push, ity of injection 4 23:04: 23:03 Q4HPRN, [place] mg 36 :36 Starting Medical on [place] Branch 02/10/22 at 1804, Until Mon02/11/22 at 1803, Routine, Pain (scale 7-10) HYDROcodone 2021-04- No 1{tbl} 1 tablet, Univers -acetaminop 0-02-12 Oral, ity of hen (NORCO 23:04: 23:03 Q6HPRN, [place] 5) 5-325 mg 33 :33 Starting Medi sasha tablet 1 on [facility] tablet 02/10/22 at 1804, Until 02/12/22 at 1803, Routine, Pain (scale 4-6) acetaminoph 2021-04 Yes 650mg 650 mg, [place] en 0-20 Oral, ity of (TYLENOL) 23:04: Q6HPRN, [place] tablet 650 25 Starting Medic al mg on [facility] Branch 02/10/22 at 1804, Until Discontinu ed, Routine, Pain (scale 1-3) acetaminoph 2021-04 Yes 650mg 650 mg, [place] en 0-20 Oral, ity of (TYLENOL) 23:04: Q6HPRN, [place] tablet 650 25 Starting Medic al mg on [facility] Branch 02/10/22 at 1804, Until Discontinu ed, Routine, Pain (scale 1-3) D5W 0.45% 2021-04 No 1000mL at 150 Uni vers NaCl 0-20 10-21 mL/hr, ity of (1/2NS) IV 20:30: 00:49 1,000 mL, [place] infusion 00 :25 IV Medical 1,000 mL Infusion, Branch CONTINUOUS , Starting on [place] 02/10/22 at 1530, Until [facility] 02/10/22 at 1949, AZEB FENTanyl PF 2021-04- No 50ug 50 mcg, [place] (SUBLIMAZE 0-20 10-20 Slow IV ity o f (PF)) 20:30: 19:38 Push, [place] injection 00 :00 ONCE, 1 Medical 50 mcg dose, On Branch [place] 02/10/22 at 1530, Routine iopamidol 2021-04- No [id number] 70mL 70 mL, U nivers (ISOVUE 0-20 10-20 Intravenou ity o f 370-500 mL) 19:15: 19:15 s, ONCE, 1 [place] injection 00 :00 dose, On Medica l 70 mL [place] Branch 02/10/22 at 1415, Routine famotidine 2021-04- No 20mg 20 mg, Univ ers (PEPCID 0-20 10-20 Slow IV ity of (PF)) 18:45: 17:56 Push, [place] injection 00 :00 ONCE, 1 Medical 20 mg dose, On Branch [facility] 02/10/22 at 1345, Routine diphenhydrA 2021-04- No 50mg 50 mg, Uni vers MINE 0-20 10-20 Slow IV ity of (BENADRYL) 18:15: 18:03 Push, [place] injection 00 :00 ONCE, 1 Medical 50 mg dose, On Branch [facility] 02/10/22 at 1315, STAT NAPROXEN 2021-04 Yes Take by Unive rs SODIUM 0-20 mouth. ity of (ALEVE 17:58: [place] ORAL) 58 Medical Branch Cholecalcif 2021-04 Yes 2000U Take 2,000 [facility] gretchen, 0-20 Units by ity of Vitamin D3, 17:58: mouth. [place] 50 mcg 58 Medical (2,000 Branch unit) capsule albuterol Yes [id number] 2{puff} Inhale 2 Univers 90 1-06 Puffs ity of mcg/actuati 00:00: every 6 [place] on inhaler 00 (six) Medical hours as Branch needed for Wheezing or Shortness of Breath. albuterol Yes [id number] 2{puff} Inhale 2 Univers 90 1-06 Puffs ity of mcg/actuati 00:00: every 6 [place] on inhaler 00 (six) Medical hours as Branch needed for Wheezing or Shortness of Breath. albuterol Yes [id number] 2{puff} Inhale 2 Univers 90 1-06 Puffs ity of mcg/actuati 00:00: every 6 [place] on inhaler 00 (six) Medical hours as Branch needed for Wheezing or Shortness of Breath. albuterol Yes [id number] 2{puff} Inhale 2 Univers 90 1-06 Puffs ity of mcg/actuati 00:00: every 6 [place] on inhaler 00 (six) Medical hours as Branch needed for Wheezing or Shortness of Breath. albuterol Yes [id number] 2{puff} Inhale 2 Univers 90 1-06 Puffs ity of mcg/actuati 00:00: every 6 [place] on inhaler 00 (six) Medical hours as Branch needed for Wheezing or Shortness of Breath. albuterol Yes [id number] 2{puff} Inhale 2 Univers 90 1-06 Puffs ity of mcg/actuati 00:00: every 6 [place] on inhaler 00 (six) Medical hours as Branch needed for Wheezing or Shortness of Breath. albuterol Yes [id number] 2{puff} Inhale 2 Univers 90 1-06 Puffs ity of mcg/actuati 00:00: every 6 [place] on inhaler 00 (six) Medical hours as Branch needed for Wheezing or Shortness of Breath. albuterol Yes [id number] 2{puff} Inhale 2 Univers 90 1-06 Puffs ity of mcg/actuati 00:00: every 6 [place] on inhaler 00 (six) Medical hours as Branch needed for Wheezing or Shortness of Breath. albuterol Yes [id number] 2{puff} Inhale 2 Univers 90 1-06 Puffs ity of mcg/actuati 00:00: every 6 [place] on inhaler 00 (six) Medical hours as Branch needed for Wheezing or Shortness of Breath. albuterol Yes [id number] 2{puff} Inhale 2 Univers 90 1-06 Puffs ity of mcg/actuati 00:00: every 6 [place] on inhaler 00 (six) Medical hours as Branch needed for Wheezing or Shortness of Breath. albuterol Yes [id number] 2{puff} Inhale 2 Univers 90 1-06 Puffs ity of mcg/actuati 00:00: every 6 [place] on inhaler 00 (six) Medical hours as Branch needed for Wheezing or Shortness of Breath. albuterol Yes [id number] 2{puff} Inhale 2 Univers 90 1-06 Puffs ity of mcg/actuati 00:00: every 6 [place] on inhaler 00 (six) Medical hours as Branch needed for Wheezing or Shortness of Breath. albuterol Yes [id number] 2{puff} Inhale 2 Univers 90 1-06 Puffs ity of mcg/actuati 00:00: every 6 [place] on inhaler 00 (six) Medical hours as Branch needed for Wheezing or Shortness of Breath. albuterol Yes [id number] 2{puff} Inhale 2 Univers 90 1-06 Puffs ity of mcg/actuati 00:00: every 6 [place] on inhaler 00 (six) Medical hours as Branch needed for Wheezing or Shortness of Breath. albuterol Yes [id number] 2{puff} Inhale 2 Univers 90 1-06 Puffs ity of mcg/actuati 00:00: every 6 [place] on inhaler 00 (six) Medical hours as Branch needed for Wheezing or Shortness of Breath. albuterol Yes [id number] 2{puff} Inhale 2 Univers 90 1-06 Puffs ity of mcg/actuati 00:00: every 6 [place] on inhaler 00 (six) Medical hours as Branch needed for Wheezing or Shortness of Breath. albuterol Yes [id number] 2{puff} Inhale 2 [facility] 90 1-06 Puffs ity of mcg/actuati 00:00: every 6 [place] on inhaler 00 (six) Medical hours as Branch needed for Wheezing or Shortness of Breath. albuterol Yes [id number] 2{puff} Inhale 2 Univers 90 1-06 Puffs ity of mcg/actuati 00:00: every 6 [place] on inhaler 00 (six) Medical hours as Branch needed for Wheezing or Shortness of Breath. albuterol Yes [id number] 2{puff} Inhale 2 [facility] 90 1-06 Puffs ity of mcg/actuati 00:00: every 6 [place] on inhaler 00 (six) Medical hours as Branch needed for Wheezing or Shortness of Breath. albuterol Yes [id number] 2{puff} Inhale 2 Univers 90 1-06 Puffs ity of mcg/actuati 00:00: every 6 [place] on inhaler 00 (six) Medical hours as Branch needed for Wheezing or Shortness of Breath. albuterol Yes [id number] 2{puff} Inhale 2 [facility] 90 1-06 Puffs ity of mcg/actuati 00:00: every 6 [place] on inhaler 00 (six) Medical hours as Branch needed for Wheezing or Shortness of Breath. albuterol Yes [id number] 2{puff} Inhale 2 Univers 90 1-06 Puffs ity of mcg/actuati 00:00: every 6 [place] on inhaler 00 (six) Medical hours as Branch needed for Wheezing or Shortness of Breath. bromphenira 2021- No [id number] 5mL Take 5 mL Univers mine-pseudo 04-29 by mouth 4 i ty of ephedrine-D 00:00: 05:59 (four) [place] M (BROMFED 00 :00 times Medical DM) 2-30-10 daily as Bran ch mg/5 mL needed for syrup Cold symptoms for up to 10 days. bromphenira 2021- No [id number] 5mL Take 5 mL Univers mine-pseudo 04-29 by mouth 4 i ty of ephedrine-D 00:00: 05:59 (four) [place] M (BROMFED 00 :00 times Medical DM) 2-30-10 daily as Bran ch mg/5 mL needed for syrup Cold symptoms for up to 10 days. bromphenira 2021- No [id number] 5mL Take 5 mL Univers mine-pseudo 04-29 by mouth 4 i ty of ephedrine-D 00:00: 05:59 (four) [place] M (BROMFED 00 :00 times Medical DM) 2-30-10 daily as Bran ch mg/5 mL needed for syrup Cold symptoms for up to 10 days. HYDROcodone 2020-04- No 1{tbl} 1 tablet, Univers -acetaminop 05-16 Oral, ity of hen (NORCO 20:15: 20:03 ONCE, 1 [place] 5) 5-325 mg 00 :00 dose, On Medi sasha tablet 1 Mon Branch tablet 03/16/21 at 1415, Routine, PACU HYDROcodone 2020-04- No 1{tbl} 1 tablet, Univers -acetaminop 05-16 Oral, ity of hen (NORCO 20:15: 20:03 ONCE, 1 [place] 5) 5-325 mg 00 :00 dose, On Medi sasha tablet 1 Mon Branch tablet 03/16/21 at 1415, Routine, PACU FENTanyl PF 2020-04 Yes 25ug 25 mcg, Uni vers (SUBLIMAZE 05-16 Slow IV ity of (PF)) 19:16: Push, [place] injection 26 Q5MIN PRN, Medi sasha 25 mcg 4 doses, Branch Starting on Mon03/16/21 at 1316, Until Discontinu ed, Routine, Pain (scale 4-6), PACU FENTanyl PF 2020-04- No 25ug 25 mcg, [facility] [place] (SUBLIMAZE 05-16 Slow IV ity o f (PF)) 19:16: 19:40 Push, [place] injection 26 :00 Q5MIN PRN, Medi sasha 25 mcg 4 doses, Branch Starting on Mon03/16/21 at 1316, Until Mon03/16/21 at 1340, Routine, Pain (scale 7-10), PACU FENTanyl PF 2020-04- No 25ug 25 mcg, [place] (SUBLIMAZE 05-16- Slow IV ity o f (PF)) 19:16: 19:40 Push, [place] injection 26 :00 Q5MIN PRN, Medi sasha 25 mcg 4 doses, Branch Starting on Mon03/16/21 at 1316, Until Mon03/16/21 at 1340, Routine, Pain (scale 7-10), PACU FENTanyl PF 2020-04- No 25ug 25 mcg, [place] (SUBLIMAZE 05-16 Slow IV ity o f (PF)) 19:16: 22:50 Push, [place] injection 26 :12 Q5MIN PRN, Medi sasha 25 mcg 4 doses, Branch Starting on Mon03/16/21 at 1316, Until Mon03/16/21 at 1650, Routine, Pain (scale 4-6), PACU lactated 2020-04- No 1000mL at 42 Unive rs ringers IV 05-16 11-23 mL/hr, ity of infusion 16:00: 16:37 1,000 mL, [place] 1,000 mL 00 :00 IV Medical Infusion, Branch ONCE, 1 dose, On Mon03/16/21 at 1000, Routine, DSU Pre-op lactated 2020-04- No 1000mL at 42 Unive rs ringers IV 05-16 11-23 mL/hr, ity of infusion 16:00: 16:37 1,000 mL, [place] 1,000 mL 00 :00 IV Medical Infusion, Branch ONCE, 1 dose, On Mon03/16/21 at 1000, Routine, DSU Pre-op NAPROXEN 2020-04 Yes Take by Univer s SODIUM 1-23 mouth. ity of (ALEVE 14:45: [place] ORAL) [facility] Cholecalcif 2020-04 Yes 2000U Take 2,000 Univers gretchen, 1-23 Units by ity of Vitamin D3, 14:45: mouth. [place] 50 mcg 09 Medical (2,000 Branch unit) capsule NAPROXEN 2020-04 Yes Take by Univer s SODIUM 1-23 mouth. ity of (ALEVE 14:45: [place] ORAL) [facility] Branch Cholecalcif 2020-04 Yes 2000U Take 2,000 Univers g[place]chen, 1-23 Units by ity of Vitamin D3, 14:45: mouth. [place] 50 mcg 09 Medical (2,000 Branch unit) capsule NAPROXEN 2020-04 Yes Take by Univer s SODIUM 1-23 mouth. ity of (ALEVE 14:45: [place] ORAL) [facility] Branch Cholecalcif 2020-04 Yes 2000U Take 2,000 Univers g[place]chen, 1-23 Units by ity of Vitamin D3, 14:45: mouth. [place] 50 mcg 09 Medical (2,000 Branch unit) capsule NAPROXEN 2020-04 Yes Take by Univer s SODIUM 1-23 mouth. ity of (ALEVE 14:45: [place] ORAL) 09 Medical Branch Cholecalcif 2020-04 Yes 2000U Take 2,000 [facility] g[place]chen, 1-23 Units by ity of Vitamin D3, 14:45: mouth. [place] 50 mcg 09 Medical (2,000 Branch unit) capsule NAPROXEN 2020-04 Yes Take by Univer s SODIUM 1-23 mouth. ity of (ALEVE 14:45: [place] ORAL) 09 Medical Branch Cholecalcif 2020-04 Yes 2000U Take 2,000 [facility] g[place], 1-23 Units by ity of Vitamin D3, 14:45: mouth. [place] 50 mcg 09 Medical (2,000 Branch unit) capsule NAPROXEN 2020-04 Yes Take by Univer s SODIUM 1-23 mouth. ity of (ALEVE 14:45: [place] ORAL) Medical Branch Cholecalcif 2020-04 Yes 2000U Take 2,000 [facility] g[place], 1-23 Units by ity of Vitamin D3, 14:45: mouth. [place] 50 mcg 09 Medical (2,000 Branch unit) capsule NAPROXEN 2020-04 Yes Take by Univer s SODIUM 1-23 mouth. ity of (ALEVE 14:45: [place] ORAL) Medical Branch Cholecalcif 2020-04 Yes 2000U Take 2,000 [facility] g[place]chen, 1-23 Units by ity of Vitamin D3, 14:45: mouth. [place] 50 mcg 09 Medical (2,000 Branch unit) capsule NAPROXEN 2020-04 Yes Take by Univer s SODIUM 1-23 mouth. ity of (ALEVE 14:45: [place] ORAL) 09 Medical Branch Cholecalcif 2020-04 Yes 2000U Take 2,000 [facility] g[place], 1-23 Units by ity of Vitamin D3, 14:45: mouth. [place] 50 mcg 09 Medical (2,000 Branch unit) capsule NAPROXEN 2020-04 Yes Take by Univer s SODIUM 1-23 mouth. ity of (ALEVE 14:45: [place] ORAL) 09 Medical Branch Cholecalcif 2020-04 Yes 2000U Take 2,000 [facility] g[place]chen, 1-23 Units by ity of Vitamin D3, 14:45: mouth. [place] 50 mcg 09 Medical (2,000 Branch unit) capsule NAPROXEN 2020-04 Yes Take by [facility] s SODIUM 1-23 mouth. ity of (ALEVE 14:45: [place] ORAL) 09 Medical Branch Cholecalcif 2020-04 Yes 2000U Take 2,000 Univers gretchen, 1-23 Units by ity of Vitamin D3, 14:45: mouth. [place] 50 mcg 09 Medical (2,000 Branch unit) capsule NAPROXEN 2020-04 Yes Take by [facility] s SODIUM 1-23 mouth. ity of (ALEVE 14:45: [place] ORAL) Medical Branch Cholecalcif 2020-04 Yes 2000U Take 2,000 [facility] gretchen, 1-23 Units by ity of Vitamin D3, 14:45: mouth. [place] 50 mcg 09 Medical (2,000 Branch unit) capsule triamcinolo 2020-04- No [id number] 40mg [facility] 04-24 [id number] ity of acetonide 20:45: 19:33 [place] (KENALOG) 00 :00 Medical injection Branch 40 mg triamcinolo 2020-04- No [id number] 40mg 40 mg, [facility] 04-24 9109 Intramuscu ity of acetonide 20:45: 19:33 [place], ONCE, [place] (KENALOG) 00 :00 1 dose, On Medi sasha injection Mon Branch 40 mg 02/22/21 at 1545, Routine gabapentin 2021- No [id number] 600mg [id number] Take 1 [facility] (Neurontin) 11-[id number] 600 mg 00:00: 04:59 3D (600 mg [facility] tablet 00 :00 total) by l mouth 3 (three) times a day. gabapentin 2021- No [id number] 600mg [id number] Take 1 [facility] (Neurontin) 11-[id number] 600 mg 00:00: 04:59 3D (600 mg [facility] tablet 00 :00 total) by l mouth 3 (three) times a day. cyclobenzap 2019-04 Yes [id number] 10mg Take 1 Univers rine 10 mg 2-06 tablet by ity of tablet 00:00: mouth 3 [place] [address] (three) Medical times Branch daily as needed for Muscle Spasms. ibuprofen 2020-1 Yes [id number] 800mg Take 1 Univers 800 mg 2-06 tablet by ity of tablet 00:00: mouth [place] 00 every 6 Medical (six) Branch hours as needed for Pain (scale 4-6). cyclobenzap 2020-1 Yes [id number] 10mg Take 1 Univers rine 10 mg 2-06 tablet by ity of tablet 00:00: mouth 3 [place] 00 (three) Medical times Branch daily as needed for Muscle Spasms. ibuprofen 2020-1 Yes [id number] 800mg Take 1 [facility] 800 mg 2-06 tablet by ity of tablet 00:00: mouth [place] 00 every 6 Medical (six) Branch hours as needed for Pain (scale 4-6). cyclobenzap 2020-1 Yes [id number] 10mg Take 1 Univers rine 10 mg 2-06 tablet by ity of tablet 00:00: mouth 3 [place] 00 (three) Medical times Branch daily as needed for Muscle Spasms. ibuprofen 2020-1 Yes [id number] 800mg Take 1 [facility] 800 mg 2-06 tablet by ity of tablet 00:00: mouth [place] 00 every 6 Medical (six) Branch hours as needed for Pain (scale 4-6). cyclobenzap 2020-1 Yes [id number] 10mg Take 1 Univers rine 10 mg 2-06 tablet by ity of tablet 00:00: mouth 3 [place] 00 (three) Medical times Branch daily as needed for Muscle Spasms. ibuprofen 2020-1 Yes [id number] 800mg Take 1 [facility] 800 mg 2-06 tablet by ity of tablet 00:00: mouth [place] 00 every 6 Medical (six) Branch hours as needed for Pain (scale 4-6). cyclobenzap 2020-1 Yes [id number] 10mg Take 1 Univers rine 10 mg 2-06 tablet by ity of tablet 00:00: mouth 3 [place] 00 (three) Medical times Branch daily as needed for Muscle Spasms. ibuprofen 2020-1 Yes [id number] 800mg Take 1 [facility] 800 mg 2-06 tablet by ity of tablet 00:00: mouth [place] 00 every 6 Medical (six) Branch hours as needed for Pain (scale 4-6). cyclobenzap 2020-1 Yes [id number] 10mg Take 1 Univers rine 10 mg 2-06 tablet by ity of tablet 00:00: mouth 3 [place] 00 (three) Medical times Branch daily as needed for Muscle Spasms. ibuprofen 2020-1 Yes [id number] 800mg Take 1 [facility] 800 mg 2-06 tablet by ity of tablet 00:00: mouth [place] 00 every 6 Medical (six) Branch hours as needed for Pain (scale 4-6). cyclobenzap 2020-1 Yes [id number] 10mg Take 1 Univers rine 10 mg 2-06 tablet by ity of tablet 00:00: mouth 3 [place] 00 (three) Medical times Branch daily as needed for Muscle Spasms. ibuprofen 2020-1 Yes [id number] 800mg Take 1 [facility] 800 mg 2-06 tablet by ity of tablet 00:00: mouth [place] 00 every 6 Medical (six) Branch hours as needed for Pain (scale 4-6). cyclobenzap 2020-1 Yes [id number] 10mg Take 1 [facility] rine 10 mg 2-06 tablet by ity of tablet 00:00: mouth 3 (three) Medical times Branch daily as needed for Muscle Spasms. ibuprofen 2020-1 Yes [id number] 800mg Take 1 [facility] 800 mg 2-06 tablet by ity of tablet 00:00: mouth [place] 00 every 6 Medical (six) Branch hours as needed for Pain (scale 4-6). cyclobenzap 2020-1 Yes [id number] 10mg Take 1 Univers rine 10 mg 2-06 tablet by ity of tablet 00:00: mouth 3 (three) Medical times Branch daily as needed for Muscle Spasms. ibuprofen 2020-1 Yes [id number] 800mg Take 1 [facility] 800 mg 2-06 tablet by ity of tablet 00:00: mouth [place] 00 every 6 Medical (six) Branch hours as needed for Pain (scale 4-6). cyclobenzap 2020-1 Yes [id number] 10mg Take 1 Univers rine 10 mg 2-06 tablet by ity of tablet 00:00: mouth 3 [place] 00 (three) Medical times Branch daily as needed for Muscle Spasms. ibuprofen 2020-1 Yes [id number] 800mg Take 1 [facility] 800 mg 2-06 tablet by ity of tablet 00:00: mouth [place] 00 every 6 Medical (six) Branch hours as needed for Pain (scale 4-6). cyclobenzap 2020-1 Yes [id number] 10mg Take 1 Univers rine 10 mg 2-06 tablet by ity of tablet 00:00: mouth 3 [place] 00 (three) Medical times Branch daily as needed for Muscle Spasms. ibuprofen 2019-04 Yes [id number] 800mg Take 1 [facility] 800 mg 2-06 tablet by ity of tablet 00:00: mouth [place] 00 every 6 Medical (six) Branch hours as needed for Pain (scale 4-6). cyclobenzap 2019-04 Yes [id number] 10mg Take 1 Univers rine 10 mg 2-06 tablet by ity of tablet 00:00: mouth 3 [place] 00 (three) Medical times Branch daily as needed for Muscle Spasms. ibuprofen 2019-04 Yes [id number] 800mg Take 1 [facility] 800 mg 2-06 tablet by ity of tablet 00:00: mouth [place] 00 every 6 Medical (six) Branch hours as needed for Pain (scale 4-6). cyclobenzap 2019-04 Yes [id number] 10mg Take 1 Univers rine 10 mg 2-06 tablet by ity of tablet 00:00: mouth 3 [place] 00 (three) Medical times Branch daily as needed for Muscle Spasms. ibuprofen 2019-04 Yes [id number] 800mg Take 1 [facility] 800 mg 2-06 tablet by ity of tablet 00:00: mouth [place] 00 every 6 Medical (six) Branch hours as needed for Pain (scale 4-6). cyclobenzap 2019-04 No [id number] 10mg Take 1 Univers rine 10 mg 2-06 10-30 tablet by ity of tablet 00:00: 00:00 mouth 3 [place] 00 :00 (three) Medical times Branch daily as needed for Muscle Spasms. ibuprofen 2019-04 No [id number] 800mg Take 1 Univers 800 mg 2-06 10-30 tablet by ity of tablet 00:00: 00:00 mouth [place] 00 :00 every 6 Medical (six) Branch hours as needed for Pain (scale 4-6). DULoxetine 2018-04 Yes duloxetine U nivers 60 mg 1-02 60 mg ity of capsule 00:00: capsule,de [place] layed Medical release Branch TAKE 1 CAPSULE BY MOUTH TWICE DAILY WITH FOOD DULoxetine 2018-04 Yes duloxetine U nivers 60 mg 1-02 60 mg ity of capsule 00:00: capsule,de [place] layed Medical release Branch TAKE 1 CAPSULE BY MOUTH TWICE DAILY WITH FOOD DULoxetine 2018-04 Yes duloxetine U nivers 60 mg 1-02 60 mg ity of capsule 00:00: capsule,de [place] layed Medical release Branch TAKE 1 CAPSULE BY MOUTH TWICE DAILY WITH FOOD DULoxetine 2018-04 Yes duloxetine U nivers 60 mg 1-02 60 mg ity of capsule 00:00: capsule,de [place] 00 layed Medical release Branch TAKE 1 CAPSULE BY MOUTH TWICE DAILY WITH FOOD DULoxetine 2018-04 Yes duloxetine U nivers 60 mg 1-02 60 mg ity of capsule 00:00: capsule,de [place] 00 layed Medical release Branch TAKE 1 CAPSULE BY MOUTH TWICE DAILY WITH FOOD DULoxetine 2018-04 Yes duloxetine U nivers 60 mg 1-02 60 mg ity of capsule 00:00: capsule,de [place] layed Medical release Branch TAKE 1 CAPSULE BY MOUTH TWICE DAILY WITH FOOD DULoxetine 2018-04 Yes duloxetine U nivers 60 mg 1-02 60 mg ity of capsule 00:00: capsule,de [place] layed Medical release Branch TAKE 1 CAPSULE BY MOUTH TWICE DAILY WITH FOOD DULoxetine 2018-04 Yes duloxetine U nivers 60 mg 1-02 60 mg ity of capsule 00:00: capsule,de [place] 00 layed Medical release Branch TAKE 1 CAPSULE BY MOUTH TWICE DAILY WITH FOOD DULoxetine 2018-04 Yes duloxetine U nivers 60 mg 1-02 60 mg ity of capsule 00:00: capsule,de [place] layed Medical release Branch TAKE 1 CAPSULE BY MOUTH TWICE DAILY WITH FOOD DULoxetine 2018-04 Yes duloxetine U nivers 60 mg 1-02 60 mg ity of capsule 00:00: capsule,de [place] layed Medical release Branch TAKE 1 CAPSULE BY MOUTH TWICE DAILY WITH FOOD DULoxetine 2018-04 Yes duloxetine U nivers 60 mg 1-02 60 mg ity of capsule 00:00: capsule,de [place] 00 layed Medical release Branch TAKE 1 CAPSULE BY MOUTH TWICE DAILY WITH FOOD DULoxetine 2018-04 Yes duloxetine U nivers 60 mg 1-02 60 mg ity of capsule 00:00: capsule,de [place] 00 layed Medical release Branch TAKE 1 CAPSULE BY MOUTH TWICE DAILY WITH FOOD DULoxetine 2018-04 Yes duloxetine U nivers 60 mg 1-02 60 mg ity of capsule 00:00: capsule,de [place] layed Medical release Branch TAKE 1 CAPSULE BY MOUTH TWICE DAILY WITH FOOD DULoxetine 2018-04 Yes duloxetine U nivers 60 mg 1-02 60 mg ity of capsule 00:00: capsule,de [place] layed Medical release Branch TAKE 1 CAPSULE BY MOUTH TWICE DAILY WITH FOOD DULoxetine 2018-04 Yes duloxetine U nivers 60 mg 1-02 60 mg ity of capsule 00:00: capsule,de [place] layed Medical release Branch TAKE 1 CAPSULE BY MOUTH TWICE DAILY WITH FOOD DULoxetine 2018-04 Yes duloxetine U nivers 60 mg 1-02 60 mg ity of capsule 00:00: capsule,de [place] layed Medical release Branch TAKE 1 CAPSULE BY MOUTH TWICE DAILY WITH FOOD DULoxetine 2018-04 Yes duloxetine U nivers 60 mg 1-02 60 mg ity of capsule 00:00: capsule,de [place] layed Medical release Branch TAKE 1 CAPSULE BY MOUTH TWICE DAILY WITH FOOD DULoxetine 2018-04 Yes duloxetine U nivers 60 mg 1-02 60 mg ity of capsule 00:00: capsule,de [place] [facility] Medical release Branch TAKE 1 CAPSULE BY MOUTH TWICE DAILY WITH FOOD DULoxetine 2018-04 Yes duloxetine U nivers 60 mg 1-02 60 mg ity of capsule 00:00: capsule,de [place] layed Medical release Branch TAKE 1 CAPSULE BY MOUTH TWICE DAILY WITH FOOD DULoxetine 2018-04 Yes duloxetine [facility] 60 mg 1-02 60 mg [facility] capsule 00:00[place] [facility] TAKE 1 CAPSULE BY MOUTH TWICE DAILY WITH FOOD DULoxetine 2018-04 Yes duloxetine [facility] 60 mg 1-02 60 mg [facility] capsule 00:00: [place] [facility] TAKE 1 CAPSULE BY MOUTH TWICE DAILY WITH FOOD DULoxetine 2018-04 Yes duloxetine [facility] 60 mg 1-02 60 mg [facility] capsule 00:00: [place],de [place] [facility] [facility] TAKE 1 CAPSULE BY MOUTH TWICE DAILY WITH FOOD DULoxetine 2018-04 Yes duloxetine [facility] 60 mg 1-02 60 mg [facility] capsule 00:00: [place],de [place] [facility] [facility] TAKE 1 CAPSULE BY MOUTH TWICE DAILY WITH FOOD DULoxetine 2018-04 Yes duloxetine [facility] 60 mg 1-02 60 mg [facility] capsule 00:00: [place] [facility] TAKE 1 CAPSULE BY MOUTH TWICE DAILY WITH FOOD DULoxetine 2018-04 No 60mg Q.5D Take 1 Meth [facility] (CYMBALTA) 04-[address] 60 MG 00:00: 00:00 ([facility] :[facility] total) by l mouth 2 (two) times a day. DULoxetine 2018-04 No 60mg Q.5D Take 1 Meth [facility] (CYMBALTA) 04-[address] 60 MG 00:00: 00:00 (60 mg [facility] capsule 00 :00 total) by l mouth 2 (two) times a day. naproxen Yes [id number] 500mg Take 1 [facility] 500 mg 4-28 tablet by ity of tablet 00:00: mouth (two) Medical times Branch daily with meals. naproxen Yes [id number] 500mg Take 1 [facility] 500 mg 4-28 tablet by ity of tablet 00:00: mouth (two) Medical times Branch daily with meals. naproxen Yes [id number] 500mg Take 1 [facility] 500 mg 4-28 tablet by [facility]y of tablet 00:00: mouth (two) Medical times Branch daily with meals. naproxen Yes [id number] 500mg Take 1 [facility] 500 mg 4-28 tablet by [facility]y of tablet 00:00: mouth (two) Medical times Branch daily with meals. naproxen Yes [id number] 500mg Take 1 [facility] 500 mg 4-28 tablet by [facility]y of tablet 00:00: mouth (two) Medical times Branch daily with meals. naproxen Yes [id number] 500mg Take 1 [facility] 500 mg 4-28 tablet by [facility]y of tablet 00:00: mouth (two) Medical times Branch daily with meals. naproxen Yes [id number] 500mg Take 1 [facility] 500 mg 4-28 tablet by [facility] of tablet 00:00: mouth (two) Medical times Branch daily with meals. naproxen 2018-0 Yes [id number] 500mg Take 1 [facility] 500 mg 4-28 tablet by ity of tablet 00:00: mouth 2 00 (two) Medical times Branch daily with meals. naproxen 2018-0 Yes [id number] 500mg Take 1 [facility] 500 mg 4-28 tablet by ity of tablet 00:00: mouth 2 00 (two) Medical times Branch daily with meals. naproxen 2018-0 Yes [id number] 500mg Take 1 [facility] 500 mg 4-28 tablet by [facility]y of tablet 00:00: mouth 2 [place] 00 (two) Medical times Branch daily with meals. naproxen 2018-0 Yes [id number] 500mg Take 1 [facility] 500 mg 4-28 tablet by ity of tablet 00:00: mouth 2 (two) Medical times Branch daily with meals. naproxen 2018-0 Yes [id number] 500mg Take 1 [facility] 500 mg 4-28 tablet by [facility]y of tablet 00:00: mouth 2 [place] (two) Medical times Branch daily with meals. naproxen 2018-0 Yes [id number] 500mg Take 1 [facility] 500 mg 4-28 tablet by [facility]y of tablet 00:00: mouth 2 [place] (two) Medical times Branch daily with meals. naproxen 2021- No [id number] 500mg Take 1 [facility] 500 mg 4-28 10-30 tablet by [facility]y of tablet 00:00: 00:00 mouth 2 [place] 00 :00 (two) Medical times Branch daily with meals. traMADOL 2019-0 Yes [id number] 50mg Take 1 [facility] (ULTRAM) 50 1-21 [id number] tablet by i ty of mg tablet 00:00: mouth [place] 00 every 6 Medical (six) Branch hours as needed for Pain (scale 7-10). traMADOL 2019-0 Yes [id number] 50mg Take 1 [facility] (ULTRAM) 50 1-21 [id number] tablet by i ty of mg tablet 00:00: mouth [place] 00 every 6 Medical (six) Branch hours as needed for Pain (scale 7-10). traMADOL 2019-0 Yes [id number] 50mg Take 1 [facility] (ULTRAM) 50 1-21 [id number] tablet by i ty of mg tablet 00:00: mouth [place] 00 every 6 Medical (six) Branch hours as needed for Pain (scale 7-10). traMADOL 2019-0 Yes [id number] 50mg Take 1 [facility] (ULTRAM) 50 1-21 [id number] tablet by i ty of mg tablet 00:00: mouth [place] 00 every 6 Medical (six) Branch hours as needed for Pain (scale 7-10). traMADOL 2019-0 Yes [id number] 50mg Take 1 [facility] (ULTRAM) 50 1-21 [id number] tablet by i ty of mg tablet 00:00: mouth [place] 00 every 6 Medical (six) Branch hours as needed for Pain (scale 7-10). traMADOL 2019-0 Yes [id number] 50mg Take 1 [facility] (ULTRAM) 50 1-21 [id number] tablet by i ty of mg tablet 00:00: mouth [place] 00 every 6 Medical (six) Branch hours as needed for Pain (scale 7-10). traMADOL 2019-0 Yes [id number] 50mg Take 1 [facility] (ULTRAM) 50 1-21 [id number] tablet by i ty of mg tablet 00:00: mouth [place] 00 every 6 Medical (six) Branch hours as needed for Pain (scale 7-10). traMADOL 2019-0 Yes [id number] 50mg Take 1 [facility] (ULTRAM) 50 1-21 [id number] tablet by i ty of mg tablet 00:00: mouth [place] 00 every 6 Medical (six) Branch hours as needed for Pain (scale 7-10). traMADOL 2019-0 Yes [id number] 50mg Take 1 [facility] (ULTRAM) 50 1-21 [id number] tablet by i ty of mg tablet 00:00: mouth [place] 00 every 6 Medical (six) Branch hours as needed for Pain (scale 7-10). traMADOL 2019-0 Yes [id number] 50mg Take 1 [facility] (ULTRAM) 50 1-21 [id number] tablet by i ty of mg tablet 00:00: mouth [place] 00 every 6 Medical (six) Branch hours as needed for Pain (scale 7-10). traMADOL 2019-0 Yes [id number] 50mg Take 1 [facility] (ULTRAM) 50 1-21 [id number] tablet by i ty of mg tablet 00:00: mouth [place] 00 every 6 Medical (six) Branch hours as needed for Pain (scale 7-10). traMADOL 2019-0 Yes [id number] 50mg Take 1 [facility] (ULTRAM) 50 1-21 [id number] tablet by i ty of mg tablet 00:00: mouth [place] 00 every 6 Medical (six) Branch hours as needed for Pain (scale 7-10). traMADOL 2018- Yes [id number] 50mg Take 1 [facility] (ULTRAM) 50 - [id number] tablet by i ty of mg tablet 00:00: mouth [place] 00 every 6 Medical (six) Branch hours as needed for Pain (scale 7-10). traMADOL 2- No [id number] 50mg Take 1 [facility] (ULTRAM) 50 1-21 10- [id number] tablet by ity of mg tablet 00:00: 00:00 mouth [place] 00 :00 every 6 Medical (six) Branch hours as needed for Pain (scale 7-10). gabapentin 2016- Yes 300mg Take 1 [facility] 300 mg 2-27 capsule by ity of capsule 00:00: mouth 3 (three) Medical times Branch daily. gabapentin 2016- Yes 300mg Take 1 [facility] 300 mg 2-27 capsule by ity of capsule 00:00: mouth (three) Medical times Branch daily. gabapentin 2016- Yes 300mg Take 1 [facility] 300 mg 2-27 capsule by ity of capsule 00:00: mouth 3 (three) Medical times Branch daily. gabapentin 2016- Yes 300mg Take 1 [facility] 300 mg 2-27 capsule by ity of capsule 00:00: mouth (three) Medical times Branch daily. gabapentin 2016- Yes 300mg Take 1 [facility] 300 mg 2-27 capsule by ity of capsule 00:00: mouth 3 (three) Medical times Branch daily. gabapentin 2016- Yes 300mg Take 1 [facility] 300 mg 2-27 capsule by ity of capsule 00:00: mouth 3 (three) Medical times Branch daily. gabapentin 2017- Yes 300mg Take 1 [facility] 300 mg 2-27 capsule by ity of capsule 00:00: mouth 3 (three) Medical times Branch daily. gabapentin 2016- Yes 300mg Take 1 [facility] 300 mg 2-27 capsule by ity of capsule 00:00: mouth 3 (three) Medical times Branch daily. gabapentin 2016- Yes 300mg Take 1 [facility] 300 mg 2-27 capsule by ity of capsule 00:00: mouth 3 (three) Medical times Branch daily. gabapentin 2017-1 Yes 300mg Take 1 [facility] 300 mg 2-27 capsule by ity of capsule 00:00: mouth 3 (three) Medical times Branch daily. gabapentin 2017-1 Yes 300mg Take 1 [facility] 300 mg 2-27 capsule by ity of capsule 00:00: mouth 3 (three) Medical times Branch daily. gabapentin 2017-1 Yes 300mg Take 1 [facility] 300 mg 2-27 capsule by ity of capsule 00:00: mouth 3 (three) Medical times Branch daily. gabapentin 2017-1 Yes 300mg Take 1 [facility] 300 mg 2-27 capsule by ity of capsule 00:00: mouth 3 (three) Medical times Branch daily. gabapentin 2017-1 Yes 300mg Take 1 [facility] 300 mg 2-27 capsule by ity of capsule 00:00: mouth (three) Medical times Branch daily. gabapentin 2017-1 Yes 300mg Take 1 [facility] 300 mg 2-27 capsule by ity of capsule 00:00: mouth (three) Medical times Branch daily. gabapentin 2017-1 Yes 300mg Take 1 [facility] 300 mg 2-27 capsule by ity of capsule 00:00: mouth (three) Medical times Branch daily. gabapentin 2017-1 Yes 300mg Take 1 [facility] 300 mg 2-27 capsule by ity of capsule 00:00: mouth (three) Medical times Branch daily. gabapentin 2017-1 Yes 300mg Take 1 [facility] 300 mg 2-27 capsule by ity of capsule 00:00: mouth (three) Medical times Branch daily. gabapentin 2017-1 Yes 300mg Take 1 [facility] 300 mg 2-27 capsule by ity of capsule 00:00: mouth (three) Medical times Branch daily. gabapentin 2017-1 Yes 300mg Take 1 [facility] 300 mg 2-27 capsule by ity of capsule 00:00: mouth 3 (three) Medical times Branch daily. gabapentin 2017-1 Yes 300mg Take 1 [facility] 300 mg 2-27 capsule by ity of capsule 00:00: mouth 3 (three) Medical times Branch daily. gabapentin 2017-1 Yes 300mg Take 1 [facility] 300 mg 2-27 capsule by ity of capsule 00:00: mouth 3 (three) Medical times Branch daily. gabapentin 2017-1 Yes 300mg Take 1 [facility] 300 mg 2-27 capsule by ity of capsule 00:00: mouth 3 (three) Medical times Branch daily. gabapentin 2017-1 Yes 300mg Take 1 [facility] 300 mg 2-27 capsule by ity of capsule 00:00: mouth (three) Medical times Branch daily. gabapentin 2017-1 Yes 300mg Take 1 [facility] 300 mg 2-27 capsule by ity of capsule 00:00: mouth (three) Medical times Branch daily. diazePAM 5 2017-0 Yes 5mg Take 1 [facility] mg tablet 2-25 tablet by ity o f 00:00: mouth (three) Medical times Branch daily as needed for Muscle Spasms. diazePAM 5 2017-0 Yes 5mg Take 1 [facility] mg tablet 2-25 tablet by ity o f 00:00: mouth (three) Medical times Branch daily as needed for Muscle Spasms. diazePAM 5 2017-0 Yes 5mg Take 1 [facility] mg tablet 2-25 tablet by ity o f 00:00: mouth (three) Medical times Branch daily as needed for Muscle Spasms. diazePAM 5 2017-0 Yes 5mg Take 1 [facility] mg tablet 2-25 tablet by ity o f 00:00: mouth (three) Medical times Branch daily as needed for Muscle Spasms. diazePAM 5 2017-0 Yes 5mg Take 1 [facility] mg tablet 2-25 tablet by ity o f 00:00: mouth (three) Medical times Branch daily as needed for Muscle Spasms. diazePAM 5 2017-0 Yes 5mg Take 1 [facility] mg tablet 2-25 tablet by ity o f 00:00: mouth (three) Medical times Branch daily as needed for Muscle Spasms. diazePAM 5 2017-0 Yes 5mg Take 1 [facility] mg tablet 2-25 tablet by ity o f 00:00: mouth (three) Medical times Branch daily as needed for Muscle Spasms. diazePAM 5 2017-0 Yes 5mg Take 1 [facility] mg tablet 2-25 tablet by ity o f 00:00: mouth (three) Medical times Branch daily as needed for Muscle Spasms. diazePAM 5 2017-0 Yes 5mg Take 1 [facility] mg tablet 2-25 tablet by ity o f 00:00: mouth (three) Medical times Branch daily as needed for Muscle Spasms. diazePAM 5 2017-0 Yes 5mg Take 1 [facility] mg tablet 2-25 tablet by ity o f 00:00: mouth 3 (three) Medical times Branch daily as needed for Muscle Spasms. diazePAM 5 2017-0 Yes 5mg Take 1 [facility] mg tablet 2-25 tablet by ity o f 00:00: mouth 3 (three) Medical times Branch daily as needed for Muscle Spasms. diazePAM 5 2017-0 Yes 5mg Take 1 [facility] mg tablet 2-25 tablet by ity o f 00:00: mouth 3 (three) Medical times Branch daily as needed for Muscle Spasms. diazePAM 5 2017-0 Yes 5mg Take 1 [facility] mg tablet 2-25 tablet by ity o f 00:00: mouth 3 (three) Medical times Branch daily as needed for Muscle Spasms. diazePAM 5 2017-0 2022- No 5mg Take 1 [facility] mg tablet 2-25 10-30 tablet by ity of 00:00: 00:00 mouth 3 00 :00 (three) Medical times Branch daily as needed for Muscle Spasms. methylPREDN 2017-0 Yes 84mg Take 21 [facility] vers ISolone 1-25 tablets by ity of (MEDROL, 00:00: mouth [place] DAVIS,) 4 mg 00 SEE-INSTRU Med ical tablets CTIONS. Branch follow package directions methylPREDN 2017-0 Yes 84mg Take 21 [facility] ISolone 1-25 tablets by ity of (MEDROL, 00:00: mouth [place] [facility],) 4 mg 00 SEE-INSTRU Med ical tablets CTIONS. Branch follow package directions methylPREDN 2017-0 Yes 84mg Take 21 [facility] ISolone 1-25 tablets by ity of (MEDROL, 00:00: mouth [place] [facility],) 4 mg 00 SEE-INSTRU Med ical tablets CTIONS. Branch follow package directions methylPREDN 2017-0 Yes 84mg Take 21 [facility] ISolone 1-25 tablets by ity of (MEDROL, 00:00: mouth [place] [facility],) 4 mg 00 SEE-INSTRU Med ical tablets CTIONS. Branch follow package directions methylPREDN 2017-0 Yes 84mg Take 21 [facility] ISolone 1-25 tablets by ity of (MEDROL, 00:00: mouth [place] [facility],) 4 mg 00 SEE-INSTRU Med ical tablets CTIONS. Branch follow package directions methylPREDN 2017-0 Yes 84mg Take 21 [facility] ISolone 1-25 tablets by ity of (MEDROL, 00:00: mouth [place] [facility],) 4 mg 00 SEE-INSTRU Med ical tablets CTIONS. Branch follow package directions methylPREDN 2017-0 Yes 84mg Take 21 [facility] ISolone 1-25 tablets by ity of (MEDROL, 00:00: mouth [place] [facility],) 4 mg 00 SEE-INSTRU Med ical tablets CTIONS. Branch follow package directions methylPREDN 2017-0 Yes 84mg Take 21 [facility] ISolone 1-25 tablets by ity of (MEDROL, 00:00: mouth [place] [facility],) 4 mg 00 SEE-INSTRU Med ical tablets CTIONS. Branch follow package directions methylPREDN 2017-0 Yes 84mg Take 21 [facility] ISolone 1-25 tablets by ity of (MEDROL, 00:00: mouth [place] [facility],) 4 mg 00 SEE-INSTRU Med ical tablets CTIONS. Branch follow package directions methylPREDN 2017-0 Yes 84mg Take 21 [facility] ISolone 1-25 tablets by ity of (MEDROL, 00:00: mouth [place] [facility],) 4 mg 00 SEE-INSTRU Med ical tablets CTIONS. Branch follow package directions methylPREDN 2017-0 Yes 84mg Take 21 [facility] ISolone 1-25 tablets by ity of (MEDROL, 00:00: mouth [place] [facility],) 4 mg 00 SEE-INSTRU Med ical tablets CTIONS. Branch follow package directions methylPREDN 2017-0 Yes 84mg Take 21 [facility] ISolone 1-25 tablets by ity of (MEDROL, 00:00: mouth [place] [facility],) 4 mg 00 SEE-INSTRU Med ical tablets CTIONS. Branch follow package directions methylPREDN 2017-0 2022- No 84mg Take 21 [facility] ISolone 1-25 10-20 tablets by ity o f (MEDROL, 00:00: 00:00 mouth [place] [facility],) 4 mg 00 :00 SEE-INSTRU Med ical tablets CTIONS. Branch follow package directions methylPREDN 2017-0 2022- No 84mg Take 21 [facility] ISolone 1-25 10-20 tablets by ity o f (MEDROL, 00:00: 00:00 mouth [place] [facility],) 4 mg 00 :00 SEE-INSTRU Med ical tablets CTIONS. Branch follow package directions cyanocobala 2015- Yes [facility] s min 1,000 2-09 ity of mcg/mL 00:00: [place] injection 00 Medical Branch cyanocobala 2015- Yes [facility] min 1,000 2-09 ity of mcg/mL 00:00: [place] injection 00 Medical Branch cyanocobala 2016- Yes [facility] min 1,000 2-09 ity of mcg/mL 00:00: [place] injection 00 Medical Branch cyanocobala 2015- Yes [facility] s min 1,000 2-09 ity of mcg/mL 00:00: [place] injection 00 Medical Branch cyanocobala 2015- Yes [facility] min 1,000 2-09 ity of mcg/mL 00:00: [place] injection 00 Medical Branch cyanocobala 2015- Yes [facility] s min 1,000 2-09 ity of mcg/mL 00:00: [place] injection 00 Medical Branch cyanocobala 2015- Yes [facility] s min 1,000 2-09 ity of mcg/mL 00:00: [place] injection 00 Medical Branch cyanocobala 2015- Yes [facility] min 1,000 2-09 ity of mcg/mL 00:00: [place] injection 00 Medical Branch cyanocobala 2015- Yes [facility] s min 1,000 2-09 ity of mcg/mL 00:00: [place] injection 00 Medical Branch cyanocobala 2016- Yes [facility] s min 1,000 2-09 ity of mcg/mL 00:00: [place] injection 00 Medical Branch cyanocobala 2016- Yes Un[facility] s min 1,000 2-09 ity of mcg/mL 00:00: [place] injection 00 Medical Branch cyanocobala 2016- Yes [facility] s min 1,000 2-09 ity of mcg/mL 00:00: [place] injection 00 Medical Branch cyanocobala 2015- Yes [facility] s min 1,000 2-09 ity of mcg/mL 00:00: [place] injection 00 Medical Branch cyanocobala 2015- Yes [facility] s min 1,000 2-09 ity of mcg/mL 00:00: [place] injection 00 Medical Branch cyanocobala 2016-1 Yes [facility] s min 1,000 2-09 ity of mcg/mL 00:00: [place] injection 00 Medical Branch cyanocobala 2016-1 Yes [facility] s min 1,000 2-09 ity of mcg/mL 00:00: [place] injection 00 Medical Branch cyanocobala 2016-1 Yes [facility] s min 1,000 2-09 ity of mcg/mL 00:00: [place] injection 00 Medical Branch cyanocobala 2016-1 Yes [facility] s min 1,000 2-09 ity of mcg/mL 00:00: [place] injection 00 Medical Branch cyanocobala 2016-1 Yes [facility] s min 1,000 2-09 ity of mcg/mL 00:00: [place] injection 00 Medical Branch cyanocobala 2016-1 Yes [facility] s min 1,000 2-09 ity of mcg/mL 00:00: [place] injection 00 Medical Branch cyanocobala 2016-1 Yes [facility] s min 1,000 2-09 ity of mcg/mL 00:00: [place] injection 00 Medical Branch cyanocobala 2016-1 Yes [facility] s min 1,000 2-09 ity of mcg/mL 00:00: [place] injection 00 Medical Branch cyanocobala 2016-1 Yes [facility] min 1,000 2-09 ity of mcg/mL 00:00: [place] injection 00 Medical Branch cyanocobala 2016-1 Yes [facility] min 1,000 2-09 ity of mcg/mL 00:00: [place] injection 00 Medical Branch cyanocobala 2016-1 Yes [facility] s min 1,000 2-09 ity of mcg/mL 00:00: [place] injection 00 Medical Branch proMETHazin 2016-1 Yes Univer s e 0-03 ity of (PHENERGAN) 00:00: [place] 25 mg 00 Medical tablet Branch proMETHazin 2016-1 Yes Univer s e 0-03 ity of (PHENERGAN) 00:00: [place] 25 mg 00 Medical tablet Branch proMETHazin 2016-1 Yes Univer s e 0-03 ity of (PHENERGAN) 00:00: [place] 25 mg 00 Medical tablet Branch proMETHazin 2016-1 Yes Univer s e 0-03 ity of (PHENERGAN) 00:00: [place] 25 mg 00 Medical tablet Branch proMETHazin 2016-1 Yes Univer s e 0-03 ity of (PHENERGAN) 00:00: [place] 25 mg 00 Medical tablet Branch proMETHazin 2015-04 Yes Univer s e 0-03 ity of (PHENERGAN) 00:00: [place] 25 mg 00 Medical tablet Branch proMETHazin 2015-04 Yes Univer s e 0-03 ity of (PHENERGAN) 00:00: [place] 25 mg 00 Medical tablet Branch proMETHazin 2015-04 Yes Univer s e 0-03 ity of (PHENERGAN) 00:00: [place] 25 mg 00 Medical tablet Branch proMETHazin 2015-04 Yes Univer s e 0-03 ity of (PHENERGAN) 00:00: [place] 25 mg 00 Medical tablet Branch proMETHazin 2015-04 Yes Univer s e 0-03 ity of (PHENERGAN) 00:00: [place] 25 mg 00 Medical tablet Branch proMETHazin 2015-04 Yes Univer s e 0-03 ity of (PHENERGAN) 00:00: [place] 25 mg 00 Medical tablet Branch proMETHazin 2015-04 Yes Univer s e 0-03 ity of (PHENERGAN) 00:00: [place] 25 mg 00 Medical tablet Branch proMETHazin 2015-04 Yes Univer s e 0-03 ity of (PHENERGAN) 00:00: [place] 25 mg 00 Medical tablet Branch proMETHazin 2015-04- No Unive rs e 0-03 10-30 ity of (PHENERGAN) 00:00: 00:00 [place] 25 mg 00 :00 Medical tablet Branch acetaminoph Yes 1{tbl} Take 1 [facility] en-codeine 7-03 tablet by ity of (TYLENOL-CO 00:00: mouth [place] DEINE #3) 00 every 4 Medical 300-30 mg (four) Branch tablet hours as needed for Pain (scale 7-10) or Pain unrelieved by non-narcot ic analgesics . traMADOL Yes 50mg Take 1 [facility] (ULTRAM) 50 7-03 tablet by ity of mg tablet 00:00: mouth [place] 00 every 6 Medical (six) Branch hours as needed for Pain (scale 4-6) or Pain unrelieved by non-narcot ic analgesics . acetaminoph Yes 1{tbl} Take 1 [facility] en-codeine 7-03 tablet by ity of (TYLENOL-CO 00:00: mouth [place] DEINE #3) 00 every 4 Medical 300-30 mg (four) Branch tablet hours as needed for Pain (scale 7-10) or Pain unrelieved by non-narcot ic analgesics . traMADOL 2015-0 Yes 50mg Take 1 [facility] (ULTRAM) 50 7-03 tablet by ity of mg tablet 00:00: mouth [place] 00 every 6 Medical (six) Branch hours as needed for Pain (scale 4-6) or Pain unrelieved by non-narcot ic analgesics . acetaminoph Yes 1{tbl} Take 1 [facility] en-codeine 7-03 tablet by ity of (TYLENOL-CO 00:00: mouth [place] DEINE #3) 00 every 4 Medical 300-30 mg (four) Branch tablet hours as needed for Pain (scale 7-10) or Pain unrelieved by non-narcot ic analgesics . traMADOL 0 Yes 50mg Take 1 [facility] (ULTRAM) 50 7-03 tablet by ity of mg tablet 00:00: mouth [place] 00 every 6 Medical (six) Branch hours as needed for Pain (scale 4-6) or Pain unrelieved by non-narcot ic analgesics . acetaminoph Yes 1{tbl} Take 1 [facility] en-codeine 7-03 tablet by ity of (TYLENOL-CO 00:00: mouth [place] DEINE #3) 00 every 4 Medical 300-30 mg (four) Branch tablet hours as needed for Pain (scale 7-10) or Pain unrelieved by non-narcot ic analgesics . traMADOL 2016-0 Yes 50mg Take 1 [facility] (ULTRAM) 50 7-03 tablet by ity of mg tablet 00:00: mouth [place] 00 every 6 Medical (six) Branch hours as needed for Pain (scale 4-6) or Pain unrelieved by non-narcot ic analgesics . acetaminoph 0 Yes 1{tbl} Take 1 [facility] en-codeine 7-03 tablet by ity of (TYLENOL-CO 00:00: mouth [place] DEINE #3) 00 every 4 Medical 300-30 mg (four) Branch tablet hours as needed for Pain (scale 7-10) or Pain unrelieved by non-narcot ic analgesics . traMADOL 2015-0 Yes 50mg Take 1 [facility] (ULTRAM) 50 7-03 tablet by ity of mg tablet 00:00: mouth [place] 00 every 6 Medical (six) Branch hours as needed for Pain (scale 4-6) or Pain unrelieved by non-narcot ic analgesics . acetaminoph 2015- Yes 1{tbl} Take 1 [facility] en-codeine 7-03 tablet by ity of (TYLENOL-CO 00:00: mouth [place] DEINE #3) 00 every 4 Medical 300-30 mg (four) Branch tablet hours as needed for Pain (scale 7-10) or Pain unrelieved by non-narcot ic analgesics . traMADOL 2015-0 Yes 50mg Take 1 [facility] (ULTRAM) 50 7-03 tablet by ity of mg tablet 00:00: mouth [place] 00 every 6 Medical (six) Branch hours as needed for Pain (scale 4-6) or Pain unrelieved by non-narcot ic analgesics . acetaminoph Yes 1{tbl} Take 1 [facility] en-codeine 7-03 tablet by ity of (TYLENOL-CO 00:00: mouth [place] DEINE #3) 00 every 4 Medical 300-30 mg (four) Branch tablet hours as needed for Pain (scale 7-10) or Pain unrelieved by non-narcot ic analgesics . traMADOL 0 Yes 50mg Take 1 [facility] (ULTRAM) 50 7-03 tablet by ity of mg tablet 00:00: mouth [place] 00 every 6 Medical (six) Branch hours as needed for Pain (scale 4-6) or Pain unrelieved by non-narcot ic analgesics . acetaminoph 0 Yes 1{tbl} Take 1 [facility] en-codeine 7-03 tablet by ity of (TYLENOL-CO 00:00: mouth [place] DEINE #3) 00 every 4 Medical 300-30 mg (four) Branch tablet hours as needed for Pain (scale 7-10) or Pain unrelieved by non-narcot ic analgesics . traMADOL 2015-0 Yes 50mg Take 1 [facility] (ULTRAM) 50 7-03 tablet by ity of mg tablet 00:00: mouth [place] 00 every 6 Medical (six) Branch hours as needed for Pain (scale 4-6) or Pain unrelieved by non-narcot ic analgesics . acetaminoph Yes 1{tbl} Take 1 [facility] en-codeine 7-03 tablet by ity of (TYLENOL-CO 00:00: mouth [place] DEINE #3) 00 every 4 Medical 300-30 mg (four) Branch tablet hours as needed for Pain (scale 7-10) or Pain unrelieved by non-narcot ic analgesics . traMADOL 0 Yes 50mg Take 1 [facility] (ULTRAM) 50 7-03 tablet by ity of mg tablet 00:00: mouth [place] 00 every 6 Medical (six) Branch hours as needed for Pain (scale 4-6) or Pain unrelieved by non-narcot ic analgesics . acetaminoph Yes 1{tbl} Take 1 [facility] en-codeine 7-03 tablet by ity of (TYLENOL-CO 00:00: mouth [place] DEINE #3) 00 every 4 Medical 300-30 mg (four) Branch tablet hours as needed for Pain (scale 7-10) or Pain unrelieved by non-narcot ic analgesics . traMADOL Yes 50mg Take 1 [facility] (ULTRAM) 50 7-03 tablet by ity of mg tablet 00:00: mouth [place] 00 every 6 Medical (six) Branch hours as needed for Pain (scale 4-6) or Pain unrelieved by non-narcot ic analgesics . acetaminoph Yes 1{tbl} Take 1 [facility] en-codeine 7-03 tablet by ity of (TYLENOL-CO 00:00: mouth [place] DEINE #3) 00 every 4 Medical 300-30 mg (four) Branch tablet hours as needed for Pain (scale 7-10) or Pain unrelieved by non-narcot ic analgesics . traMADOL 0 Yes 50mg Take 1 [facility] (ULTRAM) 50 7-03 tablet by ity of mg tablet 00:00: mouth [place] 00 every 6 Medical (six) Branch hours as needed for Pain (scale 4-6) or Pain unrelieved by non-narcot ic analgesics . acetaminoph Yes 1{tbl} Take 1 [facility] en-codeine 7-03 tablet by ity of (TYLENOL-CO 00:00: mouth [place] DEINE #3) 00 every 4 Medical 300-30 mg (four) Branch tablet hours as needed for Pain (scale 7-10) or Pain unrelieved by non-narcot ic analgesics . traMADOL Yes 50mg Take 1 [facility] (ULTRAM) 50 7-03 tablet by ity of mg tablet 00:00: mouth [place] 00 every 6 Medical (six) Branch hours as needed for Pain (scale 4-6) or Pain unrelieved by non-narcot ic analgesics . acetaminoph Yes 1{tbl} Take 1 [facility] en-codeine 7-03 tablet by ity of (TYLENOL-CO 00:00: mouth [place] DEINE #3) 00 every 4 Medical 300-30 mg (four) Branch tablet hours as needed for Pain (scale 7-10) or Pain unrelieved by non-narcot ic analgesics . traMADOL Yes 50mg Take 1 Univers (ULTRAM) 50 7-03 tablet by ity of mg tablet 00:00: mouth [place] 00 every 6 Medical (six) Branch hours as needed for Pain (scale 4-6) or Pain unrelieved by non-narcot ic analgesics . acetaminoph 2021- No 1{tbl} Take 1 U nivers en-codeine 7-03 10-30 tablet by ity of (TYLENOL-[place] #3[place] :00 every 4 Medical 300-30 mg (four) Branch tablet hours as needed for Pain (scale 7-10) or Pain unrelieved by non-narcot ic analgesics . traMADOL 2021- No 50mg Take 1 Univer s (ULTRAM) 50 7-03 10-30 tablet by it y of mg tablet 00:00: 00:00 mouth [place] 00 :00 every 6 Medical (six) Branch hours as needed for Pain (scale 4-6) or Pain unrelieved by non-narcot ic analgesics . NAPROXEN Yes Take by Univer s SODIUM 4-13 mouth. ity of (ALEVE 15:29: [place] ORAL) 39 Medical Branch Immunizations Ordered Filled Immunization Date Status Comments [facility] e Immunization Name Name RENOSatnam 2021-09-24 Completed [place] o f 00:00:00 [facility] JOVANI 2021-09-24 Completed University o f 00:00:00 [facility] BEEMILIEMAB 2021-09-24 Completed University o f 00:00:00 [facility] BESUJATAOVIMAB 2021-09-24 Completed University o f 00:00:00 [facility] BESUJATAOVIMAB 2021-09-24 Completed University o f 00:00:00 [facility] BESUJATAOVIMAB 2021-09-24 Completed University o f 00:00:00 [facility] BEEMILIEMAB 2021-09-24 Completed University o f 00:00:00 [facility] BESUJATAOVIMAB 2021-09-24 Completed University o f 00:00:00 [facility] BESUJATAOVIMAB 2021-09-24 Completed University o f 00:00:00 [facility] BESUJAATOVIMAB 2021-09-24 Completed University o f 00:00:00 [facility] BESUJATAOVIMAB 2021-09-24 Completed University o f 00:00:00 [facility] BEEMILIEMAB 2021-09-24 Completed University o f 00:00:00 [facility] BESUJATAOVIMAB 2021-09-24 Completed University o f 00:00:00 [facility] BESUJATAOVIMAB 2021-09-24 Completed University o f 00:00:00 [facility] BESUJATAOVIMAB 2021-09-24 Completed University o f 00:00:00 [facility] BESUJATAOVIMAB 2021-09-24 Completed University o f 00:00:00 [facility] BESUJATAOVIMAB 2021-09-24 Completed University o f 00:00:00 [facility] SARS-COV-2 COVID-19 2020-08-30 Completed Unive rsity of PFIZER VACCINE 00:00:00 [facility] SARS-COV-2 COVID-19 2020-08-30 Completed Unive rsity of PFIZER VACCINE 00:00:00 [facility] SARS-COV-2 COVID-19 2020-08-30 Completed Unive rsity of PFIZER VACCINE 00:00:00 [facility] SARS-COV-2 COVID-19 2020-08-30 Completed Unive rsity of PFIZER VACCINE 00:00:00 [facility] SARS-COV-2 COVID-19 2020-08-30 Completed Unive rsity of PFIZER VACCINE 00:00:00 [facility] SARS-COV-2 COVID-19 2020-08-30 Completed Unive rsity of PFIZER VACCINE 00:00:00 [facility] SARS-COV-2 COVID-19 2020-08-30 Completed Unive rsity of PFIZER VACCINE 00:00:00 [facility] SARS-COV-2 COVID-19 2020-08-30 Completed Unive rsity of PFIZER VACCINE 00:00:00 [facility] SARS-COV-2 COVID-19 2020-08-30 Completed Unive rsity of PFIZER VACCINE 00:00:00 [facility] SARS-COV-2 COVID-19 2020-08-30 Completed Unive rsity of PFIZER VACCINE 00:00:00 [facility] SARS-COV-2 COVID-19 2020-08-30 Completed Unive rsity of PFIZER VACCINE 00:00:00 [facility] SARS-COV-2 COVID-19 2020-08-30 Completed Unive rsity of PFIZER VACCINE 00:00:00 [facility] SARS-COV-2 COVID-19 2020-08-30 Completed Unive rsity of PFIZER VACCINE 00:00:00 [facility] SARS-COV-2 COVID-19 2020-08-30 Completed Unive rsity of PFIZER VACCINE 00:00:00 [facility] SARS-COV-2 COVID-19 2020-08-30 Completed Unive rsity of PFIZER VACCINE 00:00:00 [facility] SARS-COV-2 COVID-19 2020-08-30 Completed Unive rsity of PFIZER VACCINE 00:00:00 [facility] SARS-COV-2 COVID-19 2020-08-30 Completed Unive rsity of PFIZER VACCINE 00:00:00 [facility] SARS-COV-2 COVID-19 2020-08-30 Completed Unive rsity of PFIZER VACCINE 00:00:00 [facility] SARS-COV-2 COVID-19 2020-08-30 Completed Unive rsity of PFIZER VACCINE 00:00:00 [facility] SARS-COV-2 COVID-19 2020-08-30 Completed Unive rsity of PFIZER VACCINE 00:00:00 [facility] SARS-COV-2 COVID-19 2020-08-30 Completed Unive rsity of PFIZER VACCINE 00:00:00 [facility] SARS-COV-2 COVID-19 2020-08-30 Completed Unive rsity of PFIZER VACCINE 00:00:00 [facility] SARS-COV-2 COVID-19 2020-08-30 Completed Unive rsity of PFIZER VACCINE 00:00:00 [facility] SARS-COV-2 COVID-19 2020-08-30 Completed Unive rsity of PFIZER VACCINE 00:00:00 [facility] SARS-COV-2 COVID-19 2020-08-04 Completed Unive rsity of PFIZER VACCINE 00:00:00 [facility] SARS-COV-2 COVID-19 2020-08-04 Completed Unive rsity of PFIZER VACCINE 00:00:00 [facility] SARS-COV-2 COVID-19 2020-08-04 Completed Unive rsity of PFIZER VACCINE 00:00:00 [facility] SARS-COV-2 COVID-19 2020-08-04 Completed Unive rsity of PFIZER VACCINE 00:00:00 [facility] SARS-COV-2 COVID-19 2020-08-04 Completed Unive rsity of PFIZER VACCINE 00:00:00 [facility] SARS-COV-2 COVID-19 2020-08-04 Completed Unive rsity of PFIZER VACCINE 00:00:00 [facility] SARS-COV-2 COVID-19 2020-08-04 Completed Unive rsity of PFIZER VACCINE 00:00:00 [facility] SARS-COV-2 COVID-19 2020-08-04 Completed Unive rsity of PFIZER VACCINE 00:00:00 [facility] SARS-COV-2 COVID-19 2020-08-04 Completed Unive rsity of PFIZER VACCINE 00:00:00 [facility] SARS-COV-2 COVID-19 2020-08-04 Completed Unive rsity of PFIZER VACCINE 00:00:00 [facility] SARS-COV-2 COVID-19 2020-08-04 Completed Unive rsity of PFIZER VACCINE 00:00:00 [facility] SARS-COV-2 COVID-19 2020-08-04 Completed Unive rsity of PFIZER VACCINE 00:00:00 [facility] SARS-COV-2 COVID-19 2020-08-04 Completed Unive rsity of PFIZER VACCINE 00:00:00 [facility] SARS-COV-2 COVID-19 2020-08-04 Completed Unive rsity of PFIZER VACCINE 00:00:00 [facility] SARS-COV-2 COVID-19 2020-08-04 Completed Unive rsity of PFIZER VACCINE 00:00:00 [facility] SARS-COV-2 COVID-19 2020-08-04 Completed Unive rsity of PFIZER VACCINE 00:00:00 [facility] SARS-COV-2 COVID-19 2020-08-04 Completed Unive rsity of PFIZER VACCINE 00:00:00 [facility] SARS-COV-2 COVID-19 2020-08-04 Completed Unive rsity of PFIZER VACCINE 00:00:00 [facility] SARS-COV-2 COVID-19 2020-08-04 Completed Unive rsity of PFIZER VACCINE 00:00:00 [facility] SARS-COV-2 COVID-19 2020-08-04 Completed Unive rsity of PFIZER VACCINE 00:00:00 [facility] SARS-COV-2 COVID-19 2020-08-04 Completed Unive rsity of PFIZER VACCINE 00:00:00 [facility] SARS-COV-2 COVID-19 2020-08-04 Completed Unive rsity of PFIZER VACCINE 00:00:00 [facility] SARS-COV-2 COVID-19 2020-08-04 Completed Unive rsity of PFIZER VACCINE 00:00:00 [facility] SARS-COV-2 COVID-19 2020-08-04 Completed Unive rsity of PFIZER VACCINE 00:00:00 [facility] FLUCELVAX QUAD PF 2020-06-[address] 00[facility] FLUCELVAX QUAD PF 2020-06-[address] 00[facility]00 Hospital Vital Signs Vital Name Observation Time Observation Value Comments Source Systolic blood 2022-07-11 02:55:00 149 mm[Hg] Univer sity of pressure [facility] Diastolic blood 2022-07-11 02:55:00 85 mm[Hg] Unive rsity of pressure [place] [facility] Heart rate 2022-07-11 02:55:00 68 /min [facility] [place] [facility] Respiratory rate 2022-07-11 02:55:00 18 /min Univ ersity of [place] [facility] Oxygen saturation in 2022-07-11 02:55:00 97 /min University of Arterial blood by [place] [employer] sasha Pulse oximetry Branch Body temperature 2022-07-11 00:02:00 37.61 Mimi Univ ers[facility] [place] [facility] Body height 2022-07-11 00:02:00 165.1 cm [facility] [place] [facility] Body weight 2022-07-11 00:02:00 111.131 kg [facility] [place] [facility] BMI 2022-07-11 00:02:00 40.77 kg/m2 [facility] [place] [facility] Heart rate 2022-06-07 21:06:00 81 /min [facility] [place] [facility] Respiratory rate 2022-06-07 21:06:00 14 /min Univ ersity [facility] [place] [facility] Oxygen saturation in 2022-06-07 21:06:00 96 /min University of Arterial blood by [place] sasha Pulse oximetry Branch Systolic blood 2022-06-07 21:01:00 128 mm[Hg] Univer sity of pressure [place] [facility] Diastolic blood 2022-06-07 21:01:00 76 mm[Hg] Unive rsity of pressure [place] [facility] Body temperature 2022-06-07 20:30:00 36.5 Mimi [facility] [place] [facility] Body weight 2022-06-07 20:25:00 108.863 kg [facility] [place] [facility] BMI 2022-06-07 20:25:00 39.94 kg/m2 [facility] [place] [facility] Systolic blood 2022-06-07 20:57:00 133 mm[Hg] Univer sity of pressure [place] [facility] Diastolic blood 2022-06-07 20:57:00 74 mm[Hg] Unive rsity of pressure [place] [facility] Heart rate 2022-06-07 20:57:00 81 /min [facility] [place] [facility] Respiratory rate 2022-06-07 20:57:00 13 /min Univ ers[facility] [place] [facility] Oxygen saturation in 2022-06-07 20:57:00 92 /min University of Arterial blood by [place] sasha Pulse oximetry Branch Body temperature 2022-06-07 20:30:00 36.5 Mimi [facility] [place] [facility] Body weight 2022-06-07 20:25:00 108.863 kg [facility] [place] [facility] BMI 2022-06-07 20:25:00 39.94 kg/m2 [facility] [place] [facility] Systolic blood 2022-04-06 05:50:00 134 mm[Hg] Univer sity of pressure [place] [facility] Diastolic blood 2022-04-06 05:50:00 88 mm[Hg] Unive rsity of pressure [place] [facility] Heart rate 2022-04-06 05:50:00 80 /min [facility] [place] [facility] Respiratory rate 2022-04-06 05:50:00 20 /min Univ [facility] [place] [facility] Oxygen saturation in 2022-04-06 05:50:00 99 /min University of Arterial blood by [facility] sasha Pulse oximetry Branch Body temperature 2022-04-06 03:45:00 36.72 Mimi [facility] [place] [facility] Body height 2022-04-06 03:45:00 165.1 cm [facility] [place] [facility] Body weight 2022-04-06 03:45:00 108.863 kg [facility] [place] [facility] BMI 2022-04-06 03:45:00 39.94 kg/m2 [facility] [place] [facility] Systolic blood 2022-03-04 13:20:00 118 mm[Hg] Univer sity of pressure [place] [facility] Diastolic blood 2022-03-04 13:20:00 74 mm[Hg] Unive rsity of pressure [place] [facility] Heart rate 2022-03-04 13:20:00 80 /min [facility] [place] [facility] Respiratory rate 2022-03-04 13:20:00 18 /min Univ [facility] [place] [facility] Oxygen saturation in 2022-03-04 13:20:00 98 /min University of Arterial blood by [facility] sasha Pulse oximetry Branch Body temperature 2022-03-04 11:24:00 36.72 Mimi [facility] [place] [facility] Body height 2022-03-04 11:24:00 165.1 cm [facility] [place] [facility] Body weight 2022-03-04 11:24:00 106.595 kg [facility] [place] [facility] BMI 2022-03-04 11:24:00 39.11 kg/m2 [facility] [place] [facility] Systolic blood 2022-02-20 16:24:00 133 mm[Hg] Univer sity of pressure [place] [facility] Diastolic blood 2022-02-20 16:24:00 87 mm[Hg] Unive rsity of pressure [place] [facility] Heart rate 2022-02-20 16:24:00 60 /min [facility] [place] [facility] Body temperature 2022-02-20 16:24:00 35.67 Mimi [facility] [place] [facility] Respiratory rate 2022-02-20 16:24:00 18 /min Univ ers[facility] [place] [facility] Oxygen saturation in 2022-02-20 16:24:00 96 /min University of Arterial blood by [facility] sasha Pulse oximetry Branch Body weight 2022-02-20 09:12:00 122.471 kg [facility] [place] [facility] BMI 2022-02-20 09:12:00 44.93 kg/m2 [facility] [place] [facility] Body height 2022-02-10 21:16:00 165.1 cm [facility] [place] [facility] Systolic blood 2022-02-17 22:17:00 155 mm[Hg] Univer sity of pressure [place] [facility] Diastolic blood 2022-02-17 22:17:00 71 mm[Hg] Unive rsity of pressure [place] [facility] Heart rate 2022-02-17 22:17:00 76 /min [facility] [place] [facility] Respiratory rate 2022-02-17 22:17:00 21 /min [facility] [place] [facility] Oxygen saturation in 2022-02-17 22:17:00 94 /min [facility] blood by [place] [facility]asha Pulse oximetry Branch Body temperature 2022-02-17 22:07:00 36.44 Mimi [facility] [place] [facility] Body weight 2022-02-16 08:13:00 109.317 kg [facility] [place] [facility] BMI 2022-02-16 08:13:00 44.43 kg/m2 [facility] [place] [facility] Body height 2022-02-10 21:16:00 165.1 cm [facility] [place] [facility] Systolic blood 2021-09-24 21:16:00 134 mm[Hg] Univer sity of pressure [place] [facility] Diastolic blood 2021-09-24 21:16:00 76 mm[Hg] Unive rsity of pressure [place] [facility] Heart rate 2021-09-24 21:16:00 63 /min [facility] [place] [facility] Body temperature 2021-09-24 21:16:00 36.39 Mimi [facility] [place] [facility] Respiratory rate 2021-09-24 21:16:00 18 /min [facility] [place] [facility] Oxygen saturation in 2021-09-24 21:16:00 98 /min [facility] of Arterial blood by [place] sasha Pulse oximetry Branch Body height 2021-09-24 20:16:00 165.1 cm [facility] [place] [facility] Body weight 2021-09-24 20:16:00 113.399 kg [facility] [place] [facility] BMI 2021-09-24 20:16:00 41.60 kg/m2 [facility] [place] [facility] Systolic blood 2021-04-29 19:27:00 122 mm[Hg] Univer sity of pressure [place] [facility] Diastolic blood 2021-04-29 19:27:00 83 mm[Hg] Unive rsity of pressure [place] [facility] Heart rate 2021-04-29 19:27:00 78 /min [facility] [place] [facility] Body temperature 2021-04-29 19:27:00 36.11 Mimi [facility] [place] [facility] Respiratory rate 2021-04-29 19:27:00 20 /min [facility] [place] [facility] Body height 2021-04-29 19:27:00 163.8 cm [facility] [place] [facility] Body weight 2021-04-29 19:27:00 116.574 kg [facility] [place] [facility] BMI 2021-04-29 19:27:00 43.43 kg/m2 [facility] [place] [facility] Oxygen saturation in 2021-04-29 19:27:00 95 /min [facility] Arterial blood by [place] sasha Pulse oximetry Branch Heart rate 2021-03-16 20:19:00 86 /min [facility] [place] [facility] Respiratory rate 2021-03-16 20:19:00 26 /min [facility] [place] [facility] Oxygen saturation in 2021-03-16 20:17:00 91 /min University of Arterial blood by [facility] Pulse oximetry Branch Systolic blood 2021-03-16 20:13:00 149 mm[Hg] Univer sity of pressure [place] [facility] Diastolic blood 2021-03-16 20:13:00 77 mm[Hg] Unive rsity of pressure [place] [facility] Body temperature 2021-03-16 18:48:00 36.39 Mimi [facility] [place] [facility] Body weight 2021-03-15 17:48:00 115.7 kg [facility] [place] [facility] BMI 2021-03-15 17:48:00 42.45 kg/m2 [facility] [place] [facility] Body height 2021-03-15 15:15:00 165.1 cm [facility] [place] [facility] Heart rate 2021-03-16 19:12:00 78 /min [facility] [place] [facility] Respiratory rate 2021-03-16 19:12:00 19 /min Univ ersity of [facility] Oxygen saturation in 2021-03-16 19:12:00 98 /min University of Arterial blood by [facility] Pulse oximetry Branch Systolic blood 2021-03-16 19:08:00 133 mm[Hg] Univer sity of pressure [place] [facility] Diastolic blood 2021-03-16 19:08:00 84 mm[Hg] Unive rsity of pressure [facility] Body temperature 2021-03-16 18:48:00 36.39 Mimi [facility] [place] [facility] Body weight 2021-03-15 17:48:00 115.7 kg [facility] [place] [facility] BMI 2021-03-15 17:48:00 42.45 kg/m2 [facility] [place] [facility] Body height 2021-03-15 15:15:00 165.1 cm [facility] [place] [facility] Systolic blood 2021-02-22 18:54:00 123 mm[Hg] Univer sity of pressure [place] [facility] Diastolic blood 2021-02-22 18:54:00 81 mm[Hg] Unive rsity of pressure [place] [facility] Body weight 2021-02-22 18:54:00 122.471 kg [facility] [place] [facility] BMI 2021-02-22 18:54:00 44.93 kg/m2 [facility] [place] [facility] Systolic blood 2022-06-22 13:40:44 147 mm[Hg] [facility] pressure Diastolic blood 2022-06-22 13:40:44 88 mm[Hg] [facility] pressure Heart rate 2022-06-22 13:40:44 65 /min [facility] Body temperature 2022-06-22 13:40:44 36.44 Mimi [facility] Respiratory rate 2022-06-22 13:40:44 16 /min [facility] Oxygen saturation in 2022-06-22 13:40:44 95 /min [facility] Arterial blood by Pulse oximetry Body height 2022-06-17 10:55:00 165.1 cm [facility] Body weight 2022-06-17 10:55:00 110.315 kg [facility] BMI 2022-06-17 10:55:00 40.47 kg/m2 [facility] Procedures Procedure Date / Time Performing Clinician Source Performed XR [facility]RETER 2022-08-12 15:49:05 [facility] BLADDER XR LUMBAR SPINE AP LATERAL 2022-08-12 15:48:28 [facility] FLEXION AND EXTENSION XR THORACIC SPINE 3 VW 2022-08-12 15:48:15 [facility] ABDOMEN PELVIS W 2022-07-11 01:56:12 Juan Miguel Angel [facility] CONTRAST Medical Branch LIPASE 2022-07-11 00:53:00 Singer [facility] COMP. METABOLIC PANEL 2022-07-11 00:53:00 Juan Miguel Angel [facility] ([id number]) [facility] CBC WITH DIFF 2022-07-11 00:53:00 Angel, [facility] LACTIC ACID WHOLE BLOOD 2022-07-11 00:53:00 Angel, [facility] CONSENT/REFUSAL FOR 2022-07-10 23:59:32 Doctor Unassigned, [facility] DIAGNOSIS AND TREATMENT [place] CT ABDOMEN PELVIS W 2022-07-01 16:53:00 Dina Lang [facility] CONTRAST XR CERVICAL SPINE 1 VW 2022-06-22 15:39:36 [facility] XR LUMBAR SPINE 1 VW 2022-06-22 15:39:20 [facility] XR THORACIC SPINE 1 VW 2022-06-22 15:39:04 [facility] COMPREHENSIVE METABOLIC 2022-06-22 10:29:00 [facility] PANEL CBC WITH PLATELET AND 2022-06-22 10:29:00 [facility]FR 2022-06-22 10:29:00 [facility] VENIPUNC NEED PHYS 2022-06-21 23:31[facility] [place] BASIC METABOLIC PANEL 2022-06-21 13:06:00 Sydni Mckeon [facility] VANCOMYCIN LEVEL, TROUGH 2022-06-21 13:06[facility] 2022-06-21 13:06:00 Sydni Mckeon spital IR LUMBAR PUNCTURE 2022-06-20 22:01:34 Ric[facility] CSF CULTURE 2022-06-20 21:49:00 Dina Lang spital FUNGUS CULTURE 2022-06-20 21:49:00 [facility] 2022-06-20 21:49:00 [facility] CRYPTOCOCCAL ANTIGEN 2022-06-20 21:49:00 [facility] 2022-06-20 21:49:00 Dina Lang spital CSF CELL COUNT WITH 2022-06-20 21:49:00 Rickey Dina [facility] DIFFERENTIAL PROTEIN, CSF 2022-06-20 21:49:00 Dina Lang spital GLUCOSE LEVEL, CSF 2022-06-20 21:49:00 Rickey [facility] CBC WITH PLATELET AND 2022-06-20 11:46:00 MikeSydni pak [facility] DIFFERENTIAL BASIC METABOLIC PANEL 2022-06-20 11:46:00 [facility] ESTIMATED GFR 2022-06-20 11:46:00 Mike [facility] spital VANCOMYCIN LEVEL, TROUGH 2022-06-19 14:12:00 [facility] CREATININE LEVEL 2022-06-19 11:34:00 Dina Langist H ospital ESTIMATED GFR 2022-06-19 11:34:00 [facility] CREATININE LEVEL 2022-06-18 10:46:00 [facility] 2022-06-18 10:46:00 [facility] [place] VANCOMYCIN LEVEL, TROUGH 2022-06-18 02:15:00 [facility] NEEDLE ASPIRATION 2022-06-17 17:30:00 [facility] AEROBIC CULTURE 2022-06-17 17:16:00 [facility] GRAM STAIN 2022-06-17 17:16:00 [facility] ANAEROBIC CULTURE 2022-06-17 17:16:00 [facility] CBC WITH PLATELET AND 2022-06-17 10:43:00 [facility] DIFFERENTIAL BASIC METABOLIC PANEL 2022-06-17 10:43:00 [facility] ESTIMATED GFR 2022-06-17 10:43:00 [facility] spital PROTHROMBIN TIME WITH INR 2022-06-17 10:43:00 Howard Guajardo [facility] CONSULT TO OSTOMY CARE 2022-06-17 09:36:02 Inocencia Herrera [facility] NURSE LACTIC ACID LEVEL, SEPSIS 2022-06-17 04:02:00 [facility] 2X EVERY 3 HOURS LACTIC ACID LEVEL, SEPSIS 2022-06-17 00:11:00 Rubén Farr [facility] - NOW AND REPEAT 2X EVERY 3 HOURS CREATINE KINASE, TOTAL 2022-06-17 [facility] ABDOMINAL LIMITED 2022-06-16 23:09:00 Inocencia Herrera [facility] COVID-19 QUALITATIVE 2022-06-16 20:09:00 [facility] RT-PCR BLOOD CULTURE, AEROBIC & 2022-06-16 20:01:00 [facility] ANAEROBIC LACTIC ACID LEVEL, SEPSIS 2022-06-16 20:01:00 [facility] - NOW AND REPEAT 2X EVERY 3 HOURS COMPREHENSIVE METABOLIC 2022-06-16 20:01:00 [facility] PANEL CBC WITH PLATELET AND 2022-06-16 20:01:00 [facility] DIFFERENTIAL ESTIMATED GFR 2022-06-16 20:01:00 [facility] CT ABDOMEN PELVIS W 2022-06-08 22:58:18 Requisition, Paper [facility] CYST EXCISION 2022-06-07 19:30:00 [facility] DAY SURGERY - ADC 2022-06-07 06:01:00 Doctor Unassigned, [facility]ER RECORDS 2022-06-02 06:01:00 Doctor Unassigned, [facility] EXTERNAL PROVIDER RECORDS 2022-06-02 06:01:00 Doctor Unassigned, [facility] CBC WITH PLATELET AND 2022-05-26 10:30:00 [facility] DIFFERENTIAL COMPREHENSIVE METABOLIC 2022-05-26 10:30:00 [facility] PANEL ESTIMATED GFR 2022-05-26 10:30:00 [facility] VANCOMYCIN LEVEL, TROUGH 2022-05-26 08:40:[address] [facility] Cairrel ESTIMATED GFR 2022-05-26 08:26:00 [facility] PICC INSERTION REQUEST 2022-05-25 21:53:56 [facility] BUN LEVEL 2022-05-25 21:14:00 Dina [facility] CONSULT TO OSTOMY CARE 2022-05-25 19:33:07 Dina Lang [facility] NURSE PROTHROMBIN TIME WITH INR 2022-05-25 12:25:00 Gurwinder Selby [facility] CBC WITH PLATELET AND 2022-05-23 09:58:00 Jenny Jansen [facility] DIFFERENTIAL BASIC METABOLIC PANEL 2022-05-23 09:58:00 Justyna Jenny [facility] MAGNESIUM LEVEL 2022-05-23 09:58:00 Jenny Jansen Ho spital PHOSPHORUS LEVEL 2022-05-23 09:58:00 Jenny Jansen H ospital ESTIMATED GFR 2022-05-23 09:58:00 Jenny Jansen Ho spital CBC WITH PLATELET AND 2022-05-22 08:45:00 Justyna Jenny [facility] DIFFERENTIAL BASIC METABOLIC PANEL 2022-05-22 08:45:00 Justyna Jenny [facility] MAGNESIUM LEVEL 2022-05-22 08:45:00 Jenny Jansen Ho spital PHOSPHORUS LEVEL 2022-05-22 08:45:00 Jenny Jansen H ospital ESTIMATED GFR 2022-05-22 08:45:00 Jenny Jansen Ho spital VANCOMYCIN LEVEL, TROUGH 2022-05-22 06:45:00 [facility] BASIC METABOLIC PANEL 2022-05-21 09:50:00 Gerardo Hodge [facility] CBC HEMOGRAM 2022-05-21 09:50:00 Gerardo Hodge spital MAGNESIUM LEVEL 2022-05-21 09:50:00 Gerardo Hodge spital ESTIMATED GFR 2022-05-21 09:50:00 Gerardo Hodge Ho spital POC GLUCOSE 2022-05-21 02:53:00 [facility] [place] < 1 HOUR 2022-05-20 19:13:45 [facility] ANAEROBIC CULTURE 2022-05-20 18:20:00 [facility] FUNGUS CULTURE 2022-05-20 18:20:00 [facility] AEROBIC CULTURE 2022-05-20 18:20:00 Del Baxter [facility] [employer] CULTURE 2022-05-20 18:20:00 [facility] GRAM STAIN 2022-05-20 18:20:00 [facility] [employer] STAIN 2022-05-20 18:20:00 [facility] [place] AN ELECTIVE 2022-05-20 16:36:00 Alissa Ulloa Nadeen [facility] ENDOTRACHEAL AIRWAY INSERTION OR REVISION, 2022-05-20 16:26:00 [facility] PUMP, INTRATHECAL CBC WITH PLATELET AND 2022-05-20 11:14:00 [facility] DIFFERENTIAL ESTIMATED GFR 2022-05-20 11:04:00 MaxinemogagandeepDel [facility] VANCOMYCIN LEVEL, RANDOM 2022-05-20 06:49:[address] [facility] PARTIAL THROMBOPLASTIN 2022-05-19 22:19:00 [facility] TIME (PTT[facility] [employer] PROTHROMBIN TIME WITH INR 2022-05-19 22:19:00 [facility] CBC WITH PLATELET AND 2022-05-19 11:03:00 [facility] DIFFERENTIAL BASIC METABOLIC PANEL 2022-05-19 11:03:00 [facility] ESTIMATED GFR 2022-05-19 11:03:00 [facility] VANCOMYCIN LEVEL, RANDOM 2022-05-18 23:06:[address] [facility] US NEEDLE ASPIRATION 2022-05-18 17:27:14 Rickey [facility] BODY FLUID CULTURE 2022-05-18 17:01:00 [facility]peace[facility] medical centerDel [facility] CBC WITH PLATELET AND 2022-05-18 10:21:00 [facility] DIFFERENTIAL BASIC METABOLIC PANEL 2022-05-18 10:21:00 [facility] ESTIMATED GFR 2022-05-18 10:21:00 [facility] IR LUMBAR PUNCTURE 2022-05-17 20:15:00 [facility] Misbah CSF CULTURE 2022-05-17 20:03:00 [facility] Ho spital Misbah FUNGUS CULTURE 2022-05-17 20:03:00 [facility] Ho spital [employer] CULTURE 2022-05-17 20:03:00 [facility] Ho spital [place] CRYPTOCOCCAL ANTIGEN 2022-05-17 20:03:00 [facility] SCREEN Misbah MENINGITIS/ENCEPHALITIS 2022-05-17 20:03:00 [facility] PANEL Misbah GRAM STAIN 2022-05-17 20:03:00 [facility] Ho spital Misbah CSF CELL COUNT WITH 2022-05-17 20:03:00 [facility] DIFFERENTIAL Misbah PROTEIN, CSF 2022-05-17 20:03:00 [facility] Ho spital Misbah GLUCOSE LEVEL, CSF 2022-05-17 20:03:00 [facility] Misbah PROTHROMBIN TIME WITH INR 2022-05-17 14:17:00 Damian Vargas [facility] Yayo CT HEAD WO CONTRAST 2022-05-17 12:11:14 [facility] Misbah LACTIC ACID LEVEL, SEPSIS 2022-05-17 08:58:[address] [facility] - NOW AND REPEAT 2X EVERY Misbah 3 HOURS CBC WITH PLATELET AND 2022-05-17 08:58:00 [facility] DIFFERENTIAL Misbah COMPREHENSIVE METABOLIC 2022-05-17 08:58:00 [facility] PANEL Misbah TYPE AND SCREEN 2022-05-17 08:58:00 Varinder Mcgregor [facility] spital Misbah ESTIMATED GFR 2022-05-17 08:58:00 Varinder Mcgregor [facility] Misbah URINE CULTURE 2022-05-17 08:49:00 Sophia Mcgregorlon [facility] URINALYSIS SCREEN AND 2022-05-17 08:49:00 [facility] MICROSCOPY, WITH REFLEX TO Misbah CULTURE LACTIC ACID LEVEL, SEPSIS 2022-05-17 05:48:00 [facility] - NOW AND REPEAT 2X EVERY Misbah 3 HOURS SEDIMENTATION RATE 2022-05-17 05:48:00 [facility] C-REACTIVE PROTEIN 2022-05-17 05:48:00 [facility] COVID-19 QUALITATIVE 2022-05-17 04:37:00 [facility] RT-PCR CT ABDOMEN PELVIS W 2022-05-17 04:21:50 [facility] CONTRAST BLOOD CULTURE, AEROBIC & 2022-05-17 02:29:00 [facility] ANAEROBIC LACTIC ACID LEVEL, SEPSIS 2022-05-17 02:26:00 [facility] - NOW AND REPEAT 2X EVERY Misbah 3 HOURS CBC WITH PLATELET AND 2022-05-17 02:26:00 [facility] DIFFERENTIAL COMPREHENSIVE METABOLIC 2022-05-17 02:26:00 [facility] PANEL ESTIMATED GFR 2022-05-17 02:26:00 [facility] BLOOD CULTURE, AEROBIC & 2022-05-17 01:50:00 [facility] ANAEROBIC XR KUB KIDNEY URETER 2022-04-29 15:53:44 [facility] BLADDER XR LUMBAR SPINE AP LATERAL 2022-04-29 15:53:27 [facility] FLEXION AND EXTENSION XR THORACIC SPINE 2 VW 2022-04-29 15:53:[address] [facility] ECG 12-LEAD 2022-04-18 14:37:55 Martha Villarreal [facility] COMPREHENSIVE METABOLIC 2022-04-18 10:33:[address] [facility] PANEL CBC WITH PLATELET AND 2022-04-18 10:33:00 Osuagwu [facility] DIFFERENTIAL PHOSPHORUS LEVEL 2022-04-18 10:33:00 Osuagw [facility] MAGNESIUM LEVEL 2022-04-18 10:33:00 Osuawu [facility] ospital ESTIMATED GFR 2022-04-18 10:33:00 [facility] LACTIC ACID LEVEL, SEPSIS 2022-04-17 22:16:00 [facility] - NOW AND REPEAT 2X EVERY 3 HOURS XR THORACIC SPINE 2 VW 2022-04-17 21:33:00 [facility] XR LUMBAR SPINE 2 OR 3 VW 2022-04-17 21:33:00 [facility] GASTROINTESTINAL PATHOGENS 2022-04-17 19:08:00 [facility] hospital[facility] PANEL, PCR ECG 12-LEAD 2022-04-17 18:36:20 Raul Ayon [facility] LACTIC ACID LEVEL, SEPSIS 2022-04-17 17:11:00 [facility] - NOW AND REPEAT 2X EVERY 3 HOURS BETA HYDROXYBUTYRATE 2022-04-17 17:11:00 Martha Villarreal [facility] CT THORACIC SPINE WO 2022-04-17 13:50:28 [facility] ABDOMEN PELVIS WO 2022-04-17 13:50:14 Raul Ayon Manuel [facility] CONTRAST COVID-19 QUALITATIVE 2022-04-17 12:59:00 Raul Ayon Manuel [facility] RT-PCR URINALYSIS SCREEN AND 2022-04-17 12:59:00 Raul Ayon [facility] MICROSCOPY, WITH REFLEX TO CULTURE URINE CULTURE 2022-04-17 12:46:00 [facility] URINE CULTURE 2022-04-17 12:19:00 [facility] CBC WITH PLATELET AND 2022-04-17 12:19:00 [facility] DIFFERENTIAL COMPREHENSIVE METABOLIC 2022-04-17 12:19:00 [facility] PANEL LIPASE LEVEL 2022-04-17 12:19:00 [facility] URINALYSIS SCREEN AND 2022-04-17 12:19:00 [facility] MICROSCOPY, WITH REFLEX TO CULTURE ESTIMATED GFR 2022-04-17 12:19:00 Mukesh Florez spital PHOSPHORUS LEVEL 2022-04-17 12:19:00 Mukesh Florez ospital LACTIC ACID LEVEL 2022-04-17 12:19:00 [facility] AMYL[facility] LEV[facility] 2022-04-17 12:19:00 Mukesh Florez spital MAGNESIUM LEVEL 2022-04-17 12:19:00 Mukesh Florez spital CBC WITH DIFF 2022-04-08 19:01:00 Perry Small [place] [facility] PROTHROMBIN TIME / INR 2022-04-08 19:01:00 Perry Small [facility] ACTIVATED PARTIAL THRMPLAS 2022-04-08 19:01:00 Perry Small [facility] CT TRAUMA CERVICAL SPINE 2022-04-06 05:30:06 Armando [facility] CONTRAST Medical Branch CT TRAUMA THORACIC SPINE 2022-04-06 05:30:06 Armando [facility] TRAUMA LUMBAR SPINE WO 2022-04-06 05:30:06 [facility] CONTRAST Medical Branch NOTICE OF PRIVACY 2022-04-06 01:58:34 Doctor Unassigned, [facility] PRACTICES [place] CONSENT/REFUSAL FOR 2022-04-06 01:58:06 Doctor Unasslaya, [facility] DIAGNOSIS AND TREATMENT [facility] NM GASTRIC EMPTYING 2022-03-28 19:04:00 Olga Major [facility] XR ELBOW <3 VW LEFT 2022-03-28 19:01:00 Nader Gonzalez [facility] XR SPINE SCOLIOSIS 2-3 2022-03-08 16:47:32 Jl Gill [facility] VIEWS XR ABDOMEN 1 VW 2022-03-04 12:48:33 Abbey Beltran [facility] CONSENT/REFUSAL FOR 2022-03-04 11:01:51 Doctor Unachristine, [facility]IS [facility] COMP. METABOLIC PANEL 2022-02-20 08:44:00 Kriss Farmer [facility] ([id number]) Medical [place] CBC WITH DIFF 2022-02-20 08:44:00 [facility]iss [facility] POCT GLUCOSE (AUTOMATED) 2022-02-18 21:41:00 Kriss Farmer [facility] POCT GLUCOSE (AUTOMATED) 2022-02-18 16:31:00 Kriss Farmer [facility] POCT GLUCOSE (AUTOMATED) 2022-02-18 16:31:00 Marleny Kriss [facility] POCT GLUCOSE (AUTOMATED) 2022-02-18 12:38:00 Kriss Farmer [facility] POCT GLUCOSE (AUTOMATED) 2022-02-18 12:38:00 Kriss Farmer [facility] BASIC METABOLIC PANEL (NA, 2022-02-18 08:59:00 Kriss Farmer [facility] K, CL, CO2, GLUCOSE, BUN, Medica l Branch CREATININE, CA) CBC WITHOUT DIFF 2022-02-18 08:59:00 Olga Major [facility] HEPATIC FUNCTION PANEL 2022-02-18 08:59:00 Olga Major [facility] ([id number]) (ALB,T.PRO,BILI Medical Branch T,BU/BC,ALT,AST,ALK PHOS) BASIC METABOLIC PANEL (NA, 2022-02-18 08:59:00 Kriss Farmer [facility] K, CL, CO2, GLUCOSE, BUN, Medica l Branch CREATININE, CA) CBC WITHOUT DIFF 2022-02-18 08:59:00 Olga Major [facility] HEPATIC FUNCTION PANEL 2022-02-18 08:59:00 Olga Major [facility] ([id number]) (ALB,T.PRO,BILI Medical Branch T,BU/BC,ALT,AST,ALK PHOS) POCT GLUCOSE (AUTOMATED) 2022-02-18 01:10:00 Kriss Farmer [facility] POCT GLUCOSE (AUTOMATED) 2022-02-18 01:10:00 Kriss Farmer [facility] POCT GLUCOSE (AUTOMATED) 2022-02-17 22:27:00 Kriss Farmer [facility] POCT GLUCOSE (AUTOMATED) 2022-02-17 22:27:00 Kriss Farmer [facility] CHOLECYSTECTOMY 2022-02-17 19:29:00 Olga Major [facility] LAPAROSCOPY WITH Medical Branch CHOLANGIOGRAM CHOLECYSTECTOMY 2022-02-17 19:29:00 Olga Major [facility] LAPAROSCOPY WITH Medical Branch CHOLANGIOGRAM POCT GLUCOSE (AUTOMATED) 2022-02-17 16:21:00 Kriss Farmer [facility] POCT GLUCOSE (AUTOMATED) 2022-02-17 16:21:00 Kriss Farmer [facility] LIPASE 2022-02-17 13:01:00 [facility] HEPATIC FUNCTION PANEL 2022-02-17 13:01:00 Chip Yee [facility] ([id number]) (ALB,T.PRO,BILI Medical Branch T,BU/BC,ALT,AST,ALK PHOS) LIPASE 2022-02-17 13:01:00 [facility] HEPATIC FUNCTION PANEL 2022-02-17 13:01:00 Chip Yee [facility] ([id number]) (ALB,T.PRO,BILI Medical Branch T,BU/BC,ALT,AST,ALK PHOS) POCT GLUCOSE (AUTOMATED) 2022-02-17 12:18:00 Loi Nazario [facility] POCT GLUCOSE (AUTOMATED) 2022-02-17 12:18:00 Loi Nazario [facility] POCT GLUCOSE (AUTOMATED) 2022-02-17 02:04:00 Loi Nazario [facility] POCT GLUCOSE (AUTOMATED) 2022-02-17 02:04:00 Loi Nazario [facility] POCT GLUCOSE (AUTOMATED) 2022-02-16 21:30:00 Loi Nazario [facility] POCT GLUCOSE (AUTOMATED) 2022-02-16 21:30:00 Loi Nazario [facility] POCT GLUCOSE (AUTOMATED) 2022-02-16 16:51:00 Loi Nazario [facility] POCT GLUCOSE (AUTOMATED) 2022-02-16 16:51:00 Loi Nazario [facility] POCT GLUCOSE (AUTOMATED) 2022-02-16 12:38:00 Loi Nazario [facility] POCT GLUCOSE (AUTOMATED) 2022-02-16 12:38:00 Loi Nazario [facility] BASIC METABOLIC PANEL (NA, 2022-02-16 08:32:00 Loi Nazario [facility] K, CL, CO2, GLUCOSE, BUN, Medica l Branch CREATININE, CA) CBC WITH DIFF 2022-02-16 08:32:00 Loi [facility] LIPASE 2022-02-16 08:32:00 Loi [facility] BASIC METABOLIC PANEL (NA, 2022-02-16 08:32:00 Loi Nazario [facility] K, CL, CO2, GLUCOSE, BUN, Medica l Branch CREATININE, CA) CBC WITH DIFF 2022-02-16 08:32:00 Loi Nazario [facility] LIPASE 2022-02-16 08:32:00 Loi Nazario [facility] POCT GLUCOSE (AUTOMATED) 2022-02-16 01:21:00 Aravind, Loi [facility] POCT GLUCOSE (AUTOMATED) 2022-02-16 01:21:00 Loi Nazario [facility] POCT GLUCOSE (AUTOMATED) 2022-02-15 21:47:00 Loi Nazario [facility] POCT GLUCOSE (AUTOMATED) 2022-02-15 21:47:00 Loi Nazario [facility] POCT GLUCOSE (AUTOMATED) 2022-02-15 16:34:00 Loi Nazario [facility] POCT GLUCOSE (AUTOMATED) 2022-02-15 16:34:00 Loi Nazario [facility] POCT GLUCOSE (AUTOMATED) 2022-02-15 12:23:00 Loi Nazario [facility] POCT GLUCOSE (AUTOMATED) 2022-02-15 12:23:00 Loi Nazario [facility] COMP. METABOLIC PANEL 2022-02-15 08:11:00 Loi Nazario [facility] ([id number]) Medical Branch CBC WITH DIFF 2022-02-15 08:11:00 Loi [facility] LIPASE 2022-02-15 08:11:00 Loi [facility] COMP. METABOLIC PANEL 2022-02-15 08:11:00 Loi Nazario [facility] ([id number]) [facility] CBC WITH DIFF 2022-02-15 08:11:00 Loi [facility] LIPASE 2022-02-15 08:11:00 Loi [facility] POCT GLUCOSE (AUTOMATED) 2022-02-15 01:31:00 Loi Nazario [facility] POCT GLUCOSE (AUTOMATED) 2022-02-15 01:31:00 Loi Nazario [facility] POCT GLUCOSE (AUTOMATED) 2022-02-14 21:57:00 Loi Nazario [facility] POCT GLUCOSE (AUTOMATED) 2022-02-14 21:57:00 Loi Nazario [facility] POCT GLUCOSE (AUTOMATED) 2022-02-14 17:02:00 Loi Nazario [facility] POCT GLUCOSE (AUTOMATED) 2022-02-14 17:02:00 Loi Nazario [facility] POCT GLUCOSE (AUTOMATED) 2022-02-14 13:00:00 Loi Nazario [facility] POCT GLUCOSE (AUTOMATED) 2022-02-14 13:00:00 Loi Nazario [facility] BASIC METABOLIC PANEL (NA, 2022-02-14 09:00:00 Loi Nazario [facility] K, CL, CO2, GLUCOSE, BUN, Medica l Branch CREATININE, CA) CBC WITH DIFF 2022-02-14 09:00:00 Loi [facility] LIPASE 2022-02-14 09:00:00 Loi [facility] MAGNESIUM 2022-02-14 09:00:00 Loi Naz[facility] HEPATIC FUNCTION PANEL 2022-02-14 09:00:00 Loi Nazario [facility] ([id number]) (ALB,T.PRO,BILI Medical Branch T,BU/BC,ALT,AST,ALK PHOS) BASIC METABOLIC PANEL (NA, 2022-02-14 09:00:00 Loi Nazario [facility] K, CL, CO2, GLUCOSE, BUN, Medica l Branch CREATININE, CA) CBC WITH DIFF 2022-02-14 09:00:00 [facility] LIPASE 2022-02-14 09:00:00 Loi [facility] MAGNESIUM 2022-02-14 09:00:00 Loi [facility] HEPATIC FUNCTION PANEL 2022-02-14 09:00:00 Loi Nazario [facility] ([id number]) (ALB,T.PRO,BILI Medical Branch T,BU/BC,ALT,AST,ALK PHOS) POCT GLUCOSE (AUTOMATED) 2022-02-14 01:53:00 Loi Nazario [facility] POCT GLUCOSE (AUTOMATED) 2022-02-14 01:53:00 Loi Nazario [facility] POCT GLUCOSE (AUTOMATED) 2022-02-13 21:55:00 [facility]i [facility] ([facility]OMATED) 2022-02-13 21:55:00 Loi Nazario [facility] POCT GLUCOSE (AUTOMATED) 2022-02-13 16:28:00 Loi Nazario [facility] POCT GLUCOSE (AUTOMATED) 2022-02-13 16:28:00 Loi [facility] POCT GLUCOSE (AUTOMATED) 2022-02-13 12:29:00 Loi Nazario [facility] POCT GLUCOSE (AUTOMATED) 2022-02-13 12:29:00 Loi Nazario [facility] GLYCOSYLATED HEMOGLOBIN 2022-02-13 09:47:00 Loi Nazario [facility] (A1C) Medical [place] GLYCOSYLATED HEMOGLOBIN 2022-02-13 09:47:00 Loi Nazario [facility] POCT GLUCOSE (AUTOMATED) 2022-02-13 01:09:00 Loi Nazario [facility] POCT GLUCOSE (AUTOMATED) 2022-02-13 01:09:00 Loi Nazario [facility] POCT GLUCOSE (AUTOMATED) 2022-02-12 21:01:00 Loi Nazario [facility] POCT GLUCOSE (AUTOMATED) 2022-02-12 21:01:00 Loi Nazario [facility] POCT GLUCOSE (AUTOMATED) 2022-02-12 16:07:00 Loi Nazario [facility] POCT GLUCOSE (AUTOMATED) 2022-02-12 16:07:00 Loi Nazario [facility] COMP. METABOLIC PANEL 2022-02-12 14:10:00 Loi Nazario [facility] ([id number]) Medical Branch COMP. METABOLIC PANEL 2022-02-12 14:10:00 Loi Nazario [facility] ([id number]) Medical Branch LIPASE 2022-02-11 20:23:00 Loi Nazario [facility] LIPASE 2022-02-11 20:23:00 Loi Nazario [facility] US ABDOMEN LIMITED 2022-02-11 02:42:32 Loi Nazario [facility] US ABDOMEN LIMITED 2022-02-11 02:42:32 Loi Nazario [facility] COMP. METABOLIC PANEL 2022-02-10 18:50:00 Ольга Dunn [facility] ([id number]) Medical [place] LIPID PANEL ([id number])(TOTAL 2022-02-10 18:50:00 Ольга Dunn [facility] CHOLESTEROL, [facility] TRIGLYCERIDES, HDL) COMP. METABOLIC PANEL 2022-02-10 18:50:00 Ольга Dunn [facility] ([id number]) Medical Branch LIPID PANEL (15420)(TOTAL 2022-02-10 18:50:00 Ольга Dunn [facility] CHOLESTEROL, [facility] TRIGLYCERIDES, HDL) CT ABDOMEN PELVIS W 2022-02-10 18:21:00 Ольга Dunn [facility] CT ABDOMEN PELVIS W 2022-02-10 18:21:00 Ольга Dunn [facility] CBC WITH DIFF 2022-02-10 17:52:00 Ольга Dunn [facility] URINALYSIS 2022-02-10 17:52:00 Ольга Dunn [facility] LIPASE 2022-02-10 17:52:00 Ольга Dunn [facility] CBC WITH DIFF 2022-02-10 17:52:00 Ольга Dunn [facility] URINALYSIS 2022-02-10 17:52:00 Ольга Dunn [facility] LIPASE 2022-02-10 17:52:00 Ольга Dunn [facility] CONSENT/REFUSAL FOR 2022-02-10 17:06:46 Doctor Unassigned, [facility] DIAGNOSIS AND TREATMENT [place] [facility] [place] CONSENT/REFUSAL FOR 2022-02-10 17:06:46 [facility], [facility] DIAGNOSIS AND TREATMENT [facility] XR THORACIC SPINE 2 VW 2021-11-26 20:17:[address] [facility] XR LUMBAR SPINE AP LATERAL 2021-11-26 20:16:49 Perry Small [facility] FLEXION AND EXTENSION XR KUB KIDNEY URETER 2021-11-26 20:16:18 Perry Small [facility] BLADDER XR ELBOW >3 VW RIGHT 2021-11-04 19:40:26 Requisition, [facility] XR HAND 3+ VW LEFT 2021-11-04 19:40:26 Requisition, [facility] ASSIGNMENT OF BENEFITS 2021-11-04 18:48:26 Doctor Unachristine, [facility] Name Medical [place] REFERRAL- REQUEST/RESPONSE 2021-09-23 05:01:00 Doctor Martine [facility] [place] [place] US PELVIS LIMITED 2021-06-16 15:56:11 Olga Major [facility] POCT MOLECULAR FLU 2021-04-29 19:38:00 Johnson De La [facility] [place] ASPIRATE OR ABSCESS 2021-03-16 18:28:00 Olga Major [facility] CULTURE(AEROBIC/ANAEROBIC) Medic al Branch INCISION AND DRAINAGE OF 2021-03-16 17:43:00 Olga Major [facility]SCESS [facility] EXTERNAL PROVIDER RECORDS 2021-03-11 06:01:00 Doctor Farley [facility] Name [facility] EXTERNAL PROVIDER RECORDS 2021-03-11 06:01:00 Doctor Farley [facility] Plan of Care Planned Activity Planned Date Details Comments Source Future Scheduled 2022-09-17 Pneumococcal Vaccine: [facility] Test 12:12:11 Pediatrics (0 to 5 Years) and At-Risk Patients (6 to 64 Years) (1 - PCV) [code = Pneumococcal Vaccine: Pediatrics (0 to 5 Years) and At-Risk Patients (6 to 64 Years) (1 - PCV)] Future Scheduled 2022-09-17 Hepatitis C screening [facility] Test 12:12:11 (procedure) [code = 247089079] Future Scheduled 2022-09-17 Screening for [facility] Test 12:12:11 malignant neoplasm of cervix (procedure) [code = 297360343] Future Scheduled 2022-09-17 BREAST CANCER [facility] Test 12:12:11 SCREENING [code = BREAST CANCER SCREENING] Future Scheduled 2022-09-17 COLONOSCOPY SCREENING [facility] Test 12:12:11 [code = COLONOSCOPY SCREENING] Future Scheduled 2022-09-17 Screening for [facility] Test 12:12:11 malignant neoplasm of lung (procedure) [code = 862283012] Future Scheduled 2022-09-17 SHINGLES VACCINES ([address] [facility] Test 12:12:11 of 2) [code = SHINGLES VACCINES (1 of 2)] Future Scheduled 2022-09-17 COVID-19 VACCINE (4 - [facility] Test 12:12:11 Booster for Pfizer series) [code = COVID-19 VACCINE (4 - Booster for Pfizer series)] Future Scheduled 2022-09-17 INFLUENZA VACCINE Method [facility] Test 12:12:11 [code = INFLUENZA VACCINE] Future Scheduled 2022-07-25 Pneumococcal Vaccine: [facility] Test 10:39:27 Pediatrics (0 to 5 Years) and At-Risk Patients (6 to 64 Years) (1 - PCV) [code = Pneumococcal Vaccine: Pediatrics (0 to 5 Years) and At-Risk Patients (6 to 64 Years) (1 - PCV)] Future Scheduled 2022-07-25 Hepatitis C screening [facility] Test 10:39:27 (procedure) [code = 296653240] Future Scheduled 2022-07-25 Screening for [facility] Test 10:39:27 malignant neoplasm of cervix (procedure) [code = 793152791] Future Scheduled 2022-07-25 BREAST CANCER [facility] Test 10:39:27 SCREENING [code = BREAST CANCER SCREENING] Future Scheduled 2022-07-25 COLONOSCOPY SCREENING [facility] Test 10:39:27 [code = COLONOSCOPY SCREENING] Future Scheduled 2022-07-25 Screening for [facility] Test 10:39:27 malignant neoplasm of lung (procedure) [code = 227395359] Future Scheduled 2022-07-25 SHINGLES VACCINES (1 Met [facility] Test 10:39:27 of 2) [code = SHINGLES VACCINES (1 of 2)] Future Scheduled 2022-07-25 COVID-19 VACCINE (4 - [facility] Test 10:39:27 Booster for Pfizer series) [code = COVID-19 VACCINE (4 - Booster for Pfizer series)] Future Scheduled 2022-07-25 INFLUENZA VACCINE Method [facility] Test 10:39:27 [code = INFLUENZA VACCINE] Encounters Start End Encounter Admission Attending Care Care Encounter Source Date/Time Date/Time Type Type Clinicians Facility Department ID 2022-08-12 2022-08-12 [facility] 1.2.840.1 [id number] Methodi 10:25:21 23:59:00 Encounter Perry Martinez50.1.[address] 3.430.2.7 Hospit a .3.524297 l .8 2022-08-12 2022-08-12 [facility] Bindal, 1.2.840.1 [id number] 06268 Methodi 10:25:09 23:59:00 Encounter Perry Hodges 39996.1.[address] 3.430.2.7 Hospit a .3.925283 l .8 2022-08-12 2022-08-12 [facility] Bindal, 1.2.840.1 [id number] 94480 Methodi 10:24:57 10:24:57 Encounter Perry Martinez50.1.[address] 3.430.2.7 Hospit a .3.171617 l .8 2022-08-12 2022-08-12 Transcribe Bindal, 1.2.840.1 [id number] 994 [id number] Methodi 00:00:00 00:00:00 Orders Perry Hodges 66504.1.[address] 3.430.2.7 Hospit a .3.559035 l .8 2022-08-12 2022-08-12 Travel 1.2.840.1 1.2.614.145 6808 848753 Methodi 00:00:00 00:00:[address] 3.430.2.7 0.2.7.3.698 Ho spita .3.089600 084.8 l .8 2022-08-12 2022-08-12 Transcribe Bindal, 1.2.840.1 [id number] 433 [id number] Methodi 00:00:00 00:00:00 Orders Perry Hodges 32257.1.[address] 3.430.2.7 Hospit a .3.354802 l .8 2022-08-12 2022-08-12 Outpatient BINDAL, [facility] [id number] [place] 00:00:00 00:00:00 PERRY [address] 2022-08-12 2022-08-12 Outpatient BINDAL, [facility] [id number] 8[address] [place] 00:00:00 00:00:00 PERRY [address] 2022-08-12 2022-08-12 Outpatient BINDAL, [facility] [id number] 8[address] [place] 00:00:00 00:00:00 PERRY [address] 2022-07-25 2022-07-25 Orders Rickey, 1.2.840.1 [id number] 2224 Methodi 00:00:00 00:00:00 Only Dina 05843.1.[address] 3.430.2.7 Hospit a .3.385738 l .8 2022-07-25 2022-07-25 Orders Rickey, 1.2.840.1 [id number] 379074 4173 Methodi 00:00:00 00:00:00 Only Dina 81722.1.[address] 3.430.2.7 Hospit a .3.007555 l .8 2022-07-10 2022-07-10 Emergency X [facility] [id number] Univers 19:06:00 23:07:00 JUAN MIGUEL poe [facility] 2022-07-10 2022-07-10 Emergency [facility] 1.2.357.769 1476 97420 [facility] 19:06:00 23:07:00 Juan Miguel RODRIGUEZ 350.1.13.10 i [facility] 4.2.7.2.686 [facility] [id number] [address] 2022-07-01 2022-07-01 Hospital Rickey, 1.2.840.1 [id number] 05471 Methodi 08:37:42 23:59:00 Encounter Dina 08437.1.[address] 3.430.2.7 Hospit a .3.310966 l .8 2022-07-01 2022-07-01 Travel 1.2.840.1 1.2.427.053 0193 062003 Methodi 00:00:00 00:00:[address] 3.430.2.7 0.2.7.3.698 Ho spita .3.553724 084.8 l .8 2022-07-01 2022-07-01 Hospital RICKEY, 1.2.840.1 [id number] 84743 80956 [place] 00:00:00 00:00:00 Encounter DINA 47925.1.[address] .3.206353 .8 2022-07-01 2022-07-01 Travel 1.2.840.1 1.2.345.597 8102 707401 Methodi 00:00:00 00:00:[address] 3.430.2.7 0.2.7.3.698 Ho spita .3.792643 084.8 l .8 2022-06-29 2022-06-29 Transcribe Rickey, 1.2.840.1 [id number] 039 0420478 Methodi 00:00:00 00:00:00 Orders Dina 97035.1.[address] 3.430.2.7 Hospit a .3.974871 l .8 2022-06-29 2022-06-29 Orders Rickey, 1.2.840.1 [id number] 176798 9554 Methodi 00:00:00 00:00:00 Only Dina 25139.1.[address] 3.430.2.7 Hospit a .3.956954 l .8 2022-06-29 2022-06-29 Transcribe Rickey, 1.2.840.1 [id number] 735 [id number] Methodi 00:00:00 00:00:00 Orders Dina 04760.1.[address] 3.430.2.7 Hospit a .3.344108 l .8 2022-06-29 2022-06-29 Orders Rickey, 1.2.840.1 [id number] 947146 4536 Methodi 00:00:00 00:00:00 Only Dina 91591.1.[address] 3.430.2.7 Hospit a .3.526273 l .8 2022-06-28 2022-06-28 Office Buchert, 1.2.840.1 [id number] 13445 90928 Methodi 10:30:00 11:15:54 Visit Jl Munson 80141.1.[address] 3.430.2.7 Hospit a .3.227136 l .8 2022-06-28 2022-06-28 Office Bridget 1.2.840.1 [id number] 57826 76742 Methodi 10:30:00 11:15:54 Visit Jl Munson 94694.1.[address] 3.430.2.7 Hospit a .3.646151 l .8 2022-06-23 2022-06-23 Patient Annette, 1.2.840.1 [id number] 67605 Methodi 00:00:00 00:00:00 Outreach Zandra 67710.1.[address] 3.430.2.7 Hospit a .3.306639 l .8 2022-06-23 2022-06-23 Travel 1.2.840.1 1.2.870.303 2421 541046 Methodi 00:00:00 00:00:[address] 3.430.2.7 0.2.7.3.698 Ho spita .3.742598 084.8 l .8 2022-06-23 2022-06-23 Patient Annette, 1.2.840.1 [id number] 35681 81103 Methodi 00:00:00 00:00:00 Outreach Zandra 55702.1.[address] 3.430.2.7 Hospit a .3.562255 l .8 2022-06-23 2022-06-23 Travel 1.2.840.1 1.2.556.263 2568 199860 Methodi 00:00:00 00:00:[address] 3.430.2.7 0.2.7.3.698 Ho spita .3.449451 084.8 l .8 2022-06-16 2022-06-22 [facility] Tatianna De La Torre 1.2.840. 1 [id number] Methodi 13:16:00 12:49:00 Encounter [place]. [address]33.1.[address] 3.430.2.7 Hospit a .3.659817 l .8 2022-06-16 2022-06-22 [facility] ALICE, 1.2.840.1 [id number] 799 [id number] [place] 00:00:00 00:00:00 Encounter INOCENCIA 02940.1.[address] .3.558930 .8 2022-06-20 2022-06-20 Hospital Rickey, 1.2.840.1 [id number] 71816 83368 Methodi 23:59:00 23:59:00 Encounter Dina 73929.1.[address] 3.430.2.7 Hospit a .3.571785 l .8 2022-06-20 2022-06-20 Hospital RICKEY, 1.2.840.1 [id number] 40389 81465 [place] 00:00:00 00:00:00 Encounter DINA 99965.1.1 [address] .3.556050 .8 2022-06-17 2022-06-17 Telephone Galvez, 1.2.840.1 [id number] 2099 493771 Methodi 00:00:00 00:00:[address] 3.430.2.7 Hospit a .3.519290 l .8 2022-06-17 2022-06-17 Telephone Galvez, 1.2.840.1 [id number] 2100 333850 Methodi 00:00:00 00:00:[address] 3.430.2.7 Hospit a .3.397661 l .8 2022-06-16 2022-06-16 Orders Rickey, 1.2.840.1 [id number] 591152 2990 Methodi 00:00:00 00:00:00 Only Dina 30872.1.[address] 3.430.2.7 Hospit a .3.970729 l .8 2022-06-16 2022-06-16 Orders Rickey, 1.2.840.1 [id number] 300015 2286 Methodi 00:00:00 00:00:00 Only Dina 61175.1.[address] 3.430.2.7 Hospit a .3.908521 l .8 2022-06-16 2022-06-16 Orders Rickey, 1.2.840.1 [id number] 460952 5379 Methodi 00:00:00 00:00:00 Only Dina 11509.1.[address] 3.430.2.7 Hospit a .3.652515 l .8 2022-06-16 2022-06-16 Orders Rickey, 1.2.840.1 [id number] 063126 3912 Methodi 00:00:00 00:00:00 Only Dina 41363.1.[address] 3.430.2.7 Hospit a .3.822712 l .8 2022-06-16 2022-06-16 Orders Rickey, 1.2.840.1 331203173 877431 8649 Methodi 00:00:00 00:00:00 Only Dina 08651.1.[address] 3.430.2.7 Hospit a .3.825553 l .8 2022-06-16 2022-06-16 Orders Rickey, 1.2.840.1 [id number] 031108 1150 Methodi 00:00:00 00:00:00 Only Dina 77977.1.[address] 3.430.2.7 Hospit a .3.143706 l .8 2022-06-14 2022-06-14 Orders Rickey, 1.2.840.1 [id number] 649856 0441 Methodi 00:00:00 00:00:00 Only Dina 04572.1.[address] 3.430.2.7 Hospit a .3.457747 l .8 2022-06-14 2022-06-14 Orders Rickey, 1.2.840.1 [id number] 441378 5414 Methodi 00:00:00 00:00:00 Only Dina 58099.1.[address] 3.430.2.7 Hospit a .3.962960 l .8 2022-06-13 2022-06-13 Orders Rickey, 1.2.840.1 [id number] 761206 3653 Methodi 00:00:00 00:00:00 Only Dina 73054.1.[address] 3.430.2.7 Hospit a .3.093778 l .8 2022-06-13 2022-06-13 Travel 1.2.840.1 1.2.140.702 0959 034569 Methodi 00:00:00 00:00:[address] 3.430.2.7 0.2.7.3.698 Ho spita .3.254203 084.8 l .8 2022-06-13 2022-06-13 Orders Rickey, 1.2.840.1 [id number] 521737 5843 Methodi 00:00:00 00:00:00 Only Dina 89817.1.[address] 3.430.2.7 Hospit a .3.891949 l .8 2022-06-13 2022-06-13 Travel 1.2.840.1 1.2.640.740 0087 714254 Methodi 00:00:00 00:00:[address] 3.430.2.7 0.2.7.3.698 Ho spita .3.659453 084.8 l .8 2022-06-08 2022-06-08 Outpatient R RADIOLOGY [facility] 62050 37073 Univers 16:09:26 23:59:00 ity of [facility] 2022-06-08 2022-06-08 Hospital Radiology [facility] 1.2.840.114 100 104028 Univers 16:09:26 23:59:00 Encounter JENNIFER 350.1.13.10 ity [facility] 4.2.7.2.686 [facility] [id number] [facility] [address] 2022-06-07 2022-06-07 Outpatient R KIMMIE, [facility] LYN [id number] 8184 Univers 12:06:00 15:11:00 OLGA ity of [facility] 2022-06-07 2022-06-07 [facility] 1.2.424.528 1915 38607 Univers 12:06:00 15:11:00 Encounter Olga CASASTON 350.1.13.10 it[place] [id number] [facility] [address] 2022-06-07 2022-06-07 Surgery [facility] 1.2.840.114 63045 1561 [facility] 13:39:00 14:57:00 Olga CASASTON 350.1.13.10 i ty of [facility] [place] [id number] [facility] [address] 2022-05-27 2022-05-27 Patient Annette, 1.2.840.1 [id number] 36495 38882 Methodi 00:00:00 00:00:00 Outreach Zandra 84091.1.[address] 3.430.2.7 Hospit a .3.270960 l .8 2022-05-27 2022-05-27 Patient Annette, 1.2.840.1 [id number] 26234 64072 Methodi 00:00:00 00:00:00 Outreach Zandra 04906.1.[address] 3.430.2.7 Hospit a .3.415337 l .8 2022-05-16 2022-05-26 [facility] 1.2.840.1 71487 1011 [id number] Methodi 19:29:00 11:42:00 Encounter Susi Wade 76519.1.[address] [facility] .3.470048 l Mal Cox .8 Gurwinder Selby Haitham 2022-05-16 2022-05-26 [facility] 1.2.840.1 29496 1011 [id number] Methodi 19:29:00 11:42:00 Encounter Susi Wade 13324.1.[address] Varinder Mcgregor 3.430.2.7 [facility] .3.958732 l Mal Cox [facility] .8 Gurwinder Selby Haitham 2022-05-20 2022-05-20 Anesthesia Monalisa Giordano [place] 1.2.840. 1 [id number] Methodi 10:28:00 13:29:00 Event Alissa Ulloa 90315.1.[address] 3.430.2.7 Hospit a .3.084224 l .8 2022-05-20 2022-05-20 Anesthesia Monalisa Giordano 1.2.840. 1 [id number] Methodi 10:28:00 13:29:00 Event Alissa Ulloa 12115.1.[address] 3.430.2.7 Hospit a .3.921849 l .8 2022-05-20 2022-05-20 Surgery Bindal, 1.2.840.1 [id number] 906610 6329 Methodi 10:00:00 12:25:00 Perry Hodges 62365.1.[address] 3.430.2.7 Hospit a .3.525717 l .8 2022-05-20 2022-05-20 Surgery Bindal, 1.2.840.1 [id number] 347749 0233 Methodi 10:00:00 12:25:00 Perry Hodges 51666.1.[address] 3.430.2.7 Hospit a .3.694296 l .8 2022-05-16 2022-05-16 Travel 1.2.840.1 1.2.940.096 8309 840384 Methodi 00:00:00 00:00:[address] 3.430.2.7 0.2.7.3.698 Ho spita .3.595488 084.8 l .8 2022-05-16 2022-05-16 Travel 1.2.840.1 1.2.879.535 1179 389445 Methodi 00:00:00 00:00:[address] 3.430.2.7 0.2.7.3.698 Ho spita .3.976923 084.8 l .8 2022-04-29 2022-04-29 [facility], 1.2.840.1 [id number] Methodi 09:22:36 23:59:00 Encounter Perry Hodges 10578.1.[address] 3.430.2.7 Hospit a .3.574313 l .8 2022-04-29 2022-04-29 [facility], 1.2.840.1 [id number] Methodi 09:22:36 23:59:00 Encounter Perry Hodges 54744.1.[address] 3.430.2.7 Hospit a .3.381795 l .8 2022-04-29 2022-04-29 [facility], 1.2.840.1 [id number] Methodi 09:22:20 23:59:00 Encounter Perry Hodges 86323.1.[address] 3.430.2.7 Hospit a .3.488406 l .8 2022-04-29 2022-04-29 [facility], 1.2.840.1 [id number] Methodi 09:22:20 23:59:00 Encounter Perry Hodges 00903.1.[address] 3.430.2.7 Hospit a .3.762382 l .8 2022-04-29 2022-04-29 [facility], 1.2.840.1 [id number] Methodi 09:21:57 09:21:57 Encounter Perry Hodges 87277.1.[address] 3.430.2.7 Hospit a .3.931685 l .8 2022-04-29 2022-04-29 [facility], 1.2.840.1 [id number] Methodi 09:21:57 09:21:57 Encounter Perry Hodges 60785.1.[address] 3.430.2.7 Hospit a .3.112652 l .8 2022-04-29 2022-04-29 Transcribe Bindal, 1.2.840.1 [id number] 074 [id number] Methodi 00:00:00 00:00:00 Orders Perry Hodges 68255.1.[address] 3.430.2.7 Hospit a .3.440465 l .8 2022-04-29 2022-04-29 Travel 1.2.840.1 1.2.169.828 0120 641122 Methodi 00:00:00 00:00:[address] 3.430.2.7 0.2.7.3.698 Ho spita .3.416344 084.8 l .8 2022-04-29 2022-04-29 Transcribe Bindal, 1.2.840.1 [id number] 995 6161374 Methodi 00:00:00 00:00:00 Orders Perry Hodges 82329.1.[address] 3.430.2.7 Hospit a .3.002703 l .8 2022-04-29 2022-04-29 Travel 1.2.840.1 1.2.535.589 6650 366311 Methodi 00:00:00 00:00:[address] 3.430.2.7 0.2.7.3.698 Ho spita .3.501373 084.8 l .8 2022-04-19 2022-04-19 Patient Jolanta Gutiérrez 1.2.840.1 [id number] 21 [id number] Methodi 00:00:00 00:00:[address] 3.430.2.7 Hospit a .3.031633 l .8 2022-04-19 2022-04-19 Patient Jolanta Gutiérrez 1.2.840.1 [id number] 21 [id number] Methodi 00:00:00 00:00:[address] 3.430.2.7 Hospit a .3.073018 l .8 2022-04-17 2022-04-18 Emergency Raul Ayon 1.2.840.1 1 [id number] Methodi 05:44:00 17:20:00 Nereida Bates 91141.1.[address] Awar, Elvia 3.430.2.7 H ospita .3.361033 l .8 2022-04-17 2022-04-18 Emergency AyonRaul costa 1.2.840.1 1 24376035 [id number] Methodi 05:44:00 17:20:[address] Ne[address] 96658.1.[address] Awar, Elvia 3.430.2.7 H ospita .3.404947 l .8 2022-04-12 2022-04-12 Travel 1.2.840.1 1.2.953.572 7109 861404 Methodi 00:00:00 00:00:[address] 3.430.2.7 0.2.7.3.698 Ho spita .3.418115 084.8 l .8 2022-04-12 2022-04-12 Travel 1.2.840.1 1.2.431.914 2555 257274 Methodi 00:00:00 00:00:[address] 3.430.2.7 0.2.7.3.698 Ho spita .3.350464 084.8 l .8 2022-04-08 2022-04-08 Cupola Operator Coreen Daly Lab Main [facility] 1.2.8 40.114 [id number] [facility] 14:30:00 14:45:00 Visit Ari Hopkins 350.1.13.10 [facility] 4.2.7.2.686 [place] MCCALLUM [id number] [address] 2022-04-08 2022-04-08 Outpatient R SID, [facility] 63528 [id number] Univers 14:30:00 14:30:00 ARI poe of [facility] 2022-04-05 2022-04-06 Emergency X [facility] ERT 1043 [id number] Univers 20:40:00 00:46:00 , EMILE poe [facility] 2022-04-05 2022-04-06 Emergency [facility] 1.2.840.114 [id number] Univers 20:40:00 00:46:00 , Emile JENNIFER 350.1.13.10 i ty of [place] 4.2.7.2.686 [facility] [id number] [facility] [address] [place] 2022-04-05 2022-04-05 Telephone Bridget, 1.2.840.1 [id number] Methodi 00:00:00 00:00:00 Jl Munson 99234.1.[address] 3.430.2.7 Hospit a .3.136293 l .8 2022-04-05 2022-04-05 Telephone Bridget, 1.2.840.1 [id number] 599 [id number] Methodi 00:00:00 00:00:00 Jl Munson 83718.1.[address] 3.430.2.7 Hospit a .3.977677 l .8 2022-03-28 2022-03-28 Hospital Radiology [facility] 1.2.840.114 987 [id number] Univers 08:17:08 23:59:00 Encounter [place] 350.1.13.10 ity of [facility] 4.2.7.2.686 [facility] [id number] [facility] [address] [place] 2022-03-28 2022-03-28 [facility] 1.2.911.531 3980 6149 Univers 08:00:00 08:16:00 Encounter Olga Neela [place] 350.1.13.10 ity of [facility] 4.2.7.2.686 [facility] [id number] [facility] [address] [place] 2022-03-23 2022-03-23 [facility] 1.2.450.812 0657 6630 Univers 08:00:00 23:59:00 Encounter Olga RODRIGUEZ 350.1.13.10 ity of [facility] 4.[facility].7.2.686 [facility] [id number] [facility] [address] 2022-03-16 2022-03-16 [facility] [id number] 9953 Univers 00:00:00 00:00:00 OLGA ity [facility] 2022-03-08 2022-03-08 Office Bridget, 1.2.840.1 [id number] 43218 31202 Methodi 10:00:00 11:30:57 Visit Jl Munson 23638.1.[address] 3.430.2.7 Hospit a .3.316904 l .8 2022-03-08 2022-03-08 Office Bridget, 1.2.840.1 [id number] 29084 97735 Methodi 10:00:00 11:30:57 Visit Jl Martinez50.1.[address] 3.430.2.7 Hospit a .3.463097 l .8 2022-03-08 2022-03-08 Outpatient [facility] [id number] 7[address] [place] 00:00:00 00:00:[address] 2022-03-04 2022-03-04 Emergency X [facility] ERT [id number] 75 Univers 05:11:00 07:21:00 ABBEY [facility] 2022-03-04 2022-03-04 Emergency [facility] 1.2.203.613 2579 6929 Univers 05:11:00 07:21:00 Abbey Donaldo CASASLIANA 350.1.13.10 ity of [facility] 4.2.7.2.686 [facility] [id number] [facility] [address] 2022-02-22 2022-02-22 Transition TALI Landeros 1.2.840.114 979 42689 Univers 00:00:00 00:00:00 of Care Guillermina ACEVEDO 350.1.13.10 i ty [place] [id number] [facility] [address] 2022-02-10 2022-02-20 Inpatient X MARLENY [facility] PURA [id number] 23 Univers 12:16:00 16:54:00 KRISS [facility] 2022-02-10 2022-02-20 Hospital Ольга Dunn [facility] 1.2.84 0.114 [id number] Univers 12:16:00 16:54:00 Encounter Loi Nazario 350.1.13.10 ity Kriss FarmerKAIN 4.2.7.2.686 [facility] [id number] [facility] [address] 2022-02-17 2022-02-17 [facility] 1.2.840.114 24531 522 Univers 14:15:00 17:17:00 Olga RODRIGUEZ 350.1.13.10 i ty [place] 4.2.7.2.686 [facility] SURGICAL [id number] [facility] [address] 2022-02-11 2022-02-11 Outpatient R KIMMIE [facility] [id number] 1160 Univers 00:00:00 00:00:00 OLGA steffen [facility] 2021-12-14 2021-12-14 Office Bridget, 1.2.840.1 [id number] 92649 66743 Methodi 11:30:00 12:14:20 Visit Jl Martinez50.1.[address] 3.430.2.7 Hospit a Debbi3.966432 l .8 2021-12-14 2021-12-14 Office Bridget 1.2.840.1 [id number] 08613 31188 Methodi 11:30:00 12:14:20 Visit Jl Chapman.1.[address] 3.430.2.7 Hospit a .3.321792 l .8 2021-11-26 2021-11-26 Hospital Staci, 1.2.840.1 [id number] Methodi 14:30:25 23:59:00 Encounter Perry Martinez50.1.[address] 3.430.2.7 Hospit a Debbi3.015688 l .8 2021-11-26 2021-11-26 [facility], 1.2.840.1 [id number] Methodi 14:30:25 23:59:00 Encounter Perry Martinez50.1.[address] 3.430.2.7 Hospit a .3.386625 l .8 2021-11-26 2021-11-26 [facility], 1.2.840.1 [id number] Methodi 14:30:13 23:59:00 Encounter Perry Martinez50.1.[address] 3.430.2.7 Hospit a .3.728255 l .8 2021-11-26 2021-11-26 [facility], 1.2.840.1 [id number] Methodi 14:30:13 23:59:00 Encounter Perry Chapman.1.[address] 3.430.2.7 Hospit a .3.387114 l .8 2021-11-26 2021-11-26 [facility], 1.2.840.1 [id number] Methodi 14:29:54 14:29:54 Encounter Perry Chapman.1.[address] 3.430.2.7 Hospit a .3.042600 l .8 2021-11-26 2021-11-26 [facility], 1.2.840.1 [id number] Methodi 14:29:54 14:29:54 Encounter Perry Chapman.1.[address] 3.430.2.7 Hospit a .3.118860 l .8 2021-11-26 2021-11-26 Travel 1.2.840.1 1.2.565.322 [id number] [id number] Methodi 00:00:00 00:00:[address] 3.430.2.7 0.2.7.3.698 Ho spita .3.921026 084.8 l .8 2021-11-26 2021-11-26 Transcribe [facility], 1.2.840.1 [id number] Methodi 00:00:00 00:00:00 Orders Perry Hodges 98610.1.[address] 3.430.2.7 Hospit a .3.372429 l .8 2021-11-26 2021-11-26 Travel 1.2.840.1 1.2.872.227 7118 [id number] Methodi 00:00:00 00:00:[address] 3.430.2.7 0.2.7.3.698 Ho spita .3.028958 084.8 l .8 2021-11-26 2021-11-26 Transcribe Bindal, 1.2.840.1 [id number] [id number] Methodi 00:00:00 00:00:00 Orders Perry BatesDebbi 93341.1.[address] 3.430.2.7 Hospit a .3.646946 l .8 2021-11-08 2021-11-08 Orders Minor, Ajia 1.2.840.1 [id number] 21 [id number] Methodi 00:00:00 00:00:[address] 3.430.2.7 Hospit a .3.654285 l .8 2021-11-08 2021-11-08 Orders Minor, Ajia 1.2.840.1 [id number] 21 [id number] Methodi 00:00:00 00:00:[address] 3.430.2.7 Hospit a .3.065918 l .8 2021-11-04 2021-11-04 Outpatient R RADIOLOGY [facility] [id number] Univers 13:49:52 23:59:00 ity of [facility] 2021-11-04 2021-11-04 Hospital Radiology [facility] 1.2.840.114 [id number] Univers 13:49:52 23:59:00 Encounter [place] 350.1.13.10 ity of [place] 4.2.7.2.686 [facility] [phone] [place] [address] [place] 2021-11-04 2021-11-04 Orders Doctor JESSI 1.2.840.114 [id number] Univers 00:00:00 00:00:00 Only Unassigned, VLADIMIR 350.1.13.10 ity of [place] [facility] 4.2.7.2.686 Khris as [id number] [address] 2021-11-02 2021-11-02 Orders Minor, Ajia 1.2.840.1 [id number] 21 [id number] Methodi 00:00:00 00:00:[address] 3.430.2.7 Hospit a .3.399791 l .8 2021-11-02 2021-11-02 Orders Minor, Ajia 1.2.840.1 [id number] 21 [id number] Methodi 00:00:00 00:00:[address] 3.430.2.7 Hospit a .3.317702 l .8 2021-11-02 2021-11-02 Orders Minor, Ajia 1.2.840.1 [id number] 21 [id number] Methodi 00:00:00 00:00:[address] 3.430.2.7 Hospit a .3.375945 l .8 2021-11-02 2021-11-02 Orders Minor, Ajia 1.2.840.1 [id number] 21 [id number] Methodi 00:00:00 00:00:[address] 3.430.2.7 Hospit a .3.185522 l .8 2021-09-28 2021-09-28 Outpatient R ANJELICA [facility] [id number] Univers 13:15:00 13:15:00 SHYANNE poe [facility] 2021-09-28 2021-09-28 Telephone Anjelica RIROSA 1.2.373.924 [id number] Univers 00:00:00 00:00:00 [facility] 350.1.13.10 it y of [place] 4.2.7.2.686 Khris as HUSSAIN?BLEA [phone] [address] MEDICAL OFFICE BUILDING 2021-09-242021-09-24 Nurse Therapy, Clc Covid Infusion [facility] 1.2.840.114 [id number] Univers 13:30:00 14:30:00 Visit Geo Viera [facility] 350.1.13.10 ity of [place] 4.2.7.2.686 [facility] [phone] [place] [address] Branch OFFICE BUILDING 2021-09-24 2021-09-24 Outpatient R JULIEN [facility] [id number] Univers 13:30:00 13:30:00 GEO ity [facility] 2021-09-23 2021-09-23 Orders Doctor JESSI 1.2.840.114 [id number] Univers 00:00:00 00:00:00 Only Unassigned, VLADIMIR 350.1.13.10 ity of [place] [facility] 4.2.7.2.686 Khris as [id number] [address] 2021-06-16 2021-06-16 Outpatient R KIMMIE [facility] [id number] Univers 09:23:52 23:59:00 OLGA ity of [facility] 2021-06-16 2021-06-16 [facility] 1.2.880.085 [id number] Univers 09:00:00 23:59:00 Encounter Olga Keita JENNIFER 350.1.13.10 ity of [place] 4.2.7.2.686 [facility] [id number] [facility] [address] [place] 2021-05-01 2021-05-01 Letter JESSI Casas 1.2.840.114 [id number] Univers 00:00:00 00:00:00 (Out) Fabiola GILBERT 350.1.13.10 it y of [facility] 4.2.7.2.686 Khris as [id number] [facility] [address] [place] 2021-05-01 2021-05-01 Telephone JESSI Atwood 1.2.005.979 [id number] Univers 00:00:00 00:00:00 Cherelle GILBERT 350.1.13.10 it y of [facility] 4.2.7.2.686 Khris as [id number] [facility] [address] [place] 2021-04-29 2021-04-29 Outpatient R DENNY [facility] [id number] Univers 13:00:00 14:30:49 JOHNSON ity [facility] 2021-04-29 2021-04-29 Urgent Jay Coleman [facility] 1.2.840. 114 [id number] Univers 13:00:00 13:20:00 Lolly Johnson De La Garza [facility] 350.1.13.10 ity of [facility] 4.2.7.2.686 Khris as HUSSAIN?BLEA [phone] Or eric [facility] [address] [place] MEDICAL OFFICE [facility] 2021-03-16 2021-03-16 [facility] [id number] Univers 09:42:00 14:40:00 OLGA ity [facility] 2021-03-16 2021-03-16 [facility] 1.2.993.154 [id number] Univers 09:42:00 14:40:00 Encounter Olga Neela [place] 350.1.13.10 ity of [facility] [place].2.7.2.[place] [id number] [facility] [address] [place] 2021-03-16 2021-03-16 Surgery [facility] 1.2.840.114 [id number] Univers 11:30:00 13:12:00 Olga Neela [place] 350.1.13.10 i ty of [place] [phone] [facility] [address] [place] 2021-03-15 2021-03-15 [facility] [id number] Univers 09:00:00 09:00:00 OLGA ity [facility] 2021-02-22 2021-02-22 [facility] 1.2.840.114 [id number] Univers 13:48:33 14:03:33 Visit Shyanne S HEALTH 350.1.13.10 it y of [place] 4.2.7.2.686 Khris as HUSSAIN?BLEA [phone] Or eric DIMAS 198 [facility] OFFICE [facility] 2021-02-22 2021-02-22 Outpatient [facility] [id number] Univers 13:45:00 13:45:00 SHYANNE steffen [facility] 2021-02-22 2021-02-22 Outpatient Sweta [facility] [id number] Univers 13:45:00 13:45:00 SHYANNE itsteffen [facility] 2021-02-22 2021-02-22 [facility] [id number] Univers 13:45:00 13:45:00 SHYANNE itsteffen [facility] 2020-12-30 2020-12-30 Office [facility] 1.2.840.114 [id number] Univers 13:41:38 13:56:38 Visit Shyanne S Health 350.1.13.10 it y of [place] 4.2.7.2.686 Khris as Hussain?Blea [id number] Or eric gupta 198 [facility] Office [facility] 2020-12-30 2020-12-30 Outpatient Sweta [facility] [id number] Univers 13:30:00 13:30:00 SHYANNE itsteffen [facility] 2020-12-17 2020-12-17 Telephone [facility] [id number] [facility] 00:00:00 00:00:00 Shyanne S Health 350.1.13.10 it y of [place] 4.2.7.2.686 Khris as Hussain?Blea [phone] Or eric gupta 198 [facility] Office [facility] 2020-12-16 2020-12-16 [facility] 1.2.840.114 [id number] Univers 13:30:00 23:59:00 Encounter Shyanne S Health 350.1.13.10 ity of [place] 4.2.7.2.686 Khris as Hussain?Blea [id number] Or eric gupta 809 [facility] Office [facility] 2020-12-16 2020-12-16 Office Shyanne Dejesus [facility] 1.2.840.114 [id number] Univers 13:19:36 13:34:36 Visit Whit [facility] 350.1.13.10 ity of [place] 4.2.7.2.686 Khris as Hussain?Blea [id number] Or eric [address] [facility] 2020-12-16 2020-12-16 Outpatient R SANDERS, [facility] [id number] [facility] 13:15:00 13:15:00 WHIT poe [facility] 2020-11-02 2020-11-02 Outpatient VIKI, [facility] [id number] [place] 00:00:00 00:00:00 HSAYAN 077 [facility] 2020-11-02 2020-11-02 Outpatient VIKI, [facility] [id number] [place] 00:00:00 00:00:00 SHAYAN 923 [facility] 2020-07-13 2020-07-13 Outpatient ELIZABETH [facility] [id number] [place] 00:00:00 00:00:00 MAL 017 [facility] i 2020-07-13 2020-07-13 Outpatient ELIZABETH [facility] [id number] [place] 00:00:00 00:00:00 MAL 602 [facility] 2020-06-24 2020-06-30 Inpatient ELIZABETH, [facility] 021 [id number] [place] 00:00:00 00:00:00 MAL 322 [facility] 2020-06-22 2020-06-22 Outpatient ELIZABETH [facility] [id number] [place] 00:00:00 00:00:00 MAL 004 [facility] i 2020-06-04 2020-06-04 Outpatient ELIZABETH [facility] [id number] [place] 00:00:00 00:00:00 MAL 482 [facility] i 2020-06-04 2020-06-04 Outpatient ELIZABETH [facility] [id number] [place] 00:00:00 00:00:00 MAL 470 [facility] 2020-06-04 2020-06-04 Outpatient ELIZABETH [facility] [id number] [place] 00:00:00 00:00:00 MAL 871 [facility] 2020-04-14 2020-04-14 Orders Doctor BOWEN 1.2.840.114 [id number] 00:00:00 00:00:00 Only Unassigned, VLADIMIR 350.1.13.10 [place] [facility] 4.2.7.2.[id number] [facility] 2020-04-14 2020-04-14 Orders Doctor JESSI 1.2.840.114 [id number] [facility] 00:00:00 00:00:00 Only Unassigned, VLADIMIR 350.1.13.10 [facility] 4.2.7.2.686 Khris as [id number] [address] 2020-04-06 2020-04-06 Outpatient VIKI, [facility] [id number] [place] 00:00:00 00:00:00 SHAYAN 651 [facility] i 2020-04-06 2020-04-06 Outpatient ELIZABETH, [facility] [id number] [place] 00:00:00 00:00:00 MAL 061 Method i 2020-03-29 2020-03-29 Emergency [facility] 1.2.840.114 [id number] 19:21:00 21:29:00 Anjana Nilesh [place] 350.1.13.10 [place] 4.2.7.2.686 [place] [id number] [facility] 2020-03-29 2020-03-29 Emergency [facility] 1.2.840.114 [id number] Univers 19:21:00 21:29:00 Anjana Nilesh [place] 350.1.13.10 ity of [place] 4.2.7.2.686 [facility] [id number] [address] 2020-03-29 2020-03-29 Emergency X [facility] ERT [id number] Univers 19:21:00 21:29:00 FOLUSHO ity of [facility] 2020-03-26 2020-03-26 Telephone [facility] 1.2.080.133 [id number] 00:00:00 00:00:00 Shyanne S Health 350.1.13.10 Surgical 4.2.7.2.686 Specialti [id number] rae [place] 2020-03-26 2020-03-26 Telephone [facility] 1.2.777.800 [id number] Univers 00:00:00 00:00:00 Shyanne S Health 350.1.13.10 it y of Surgical 4.2.7.2.686 Khris as Specialti [id number] Or dical es 198 [facility] 2020-03-16 2020-03-16 [facility] 1.2.840.114 [id number] 15:09:26 23:59:00 Encounter Whit [place] 350.1.13.10 [place] 4.2.7.2.686 [place] [id number] [facility] 2020-03-16 2020-03-16 [facility] 1.2.840.114 [id number] Univers 15:09:26 23:59:00 Encounter Whit [place] 350.1.13.10 ity of [place].2.[place] [id number] [address] 2020-03-16 2020-03-16 [facility] [id number] Univers 15:09:26 23:59:00 [facility] 2020-03-16 2020-03-16 Office [facility] 1.2.840.114 [id number] 15:41:11 15:56:11 Visit Shyanne [facility] 350.1.13.10 Surgical 4.2.7.2.686 Specialti [id number] es [address] [place] [address] 2020-03-16 2020-03-16 Office Shyanne Dejesus [facility] 1.2.840.114 [id number] Univers 15:41:11 15:56:11 Visit Whit [facility] 350.1.13.10 ity of Surgical 4.2.7.2.686 Khris as Specialti [id number] Or dical es 198 [facility] 2020-03-16 2020-03-16 [facility] [id number] Univers 15:00:00 15:00:00 WHITADE poe [facility] 2020-03-12 2020-03-12 Telephone [facility] 1.2.840.114 [id number] Univers 00:00:00 00:00:00 Whit [facility] 350.1.13.10 it y of Surgical 4.2.7.2.686 Khris as Specialti [id number] Or dical es 198 [facility] 2019-11-28 2019-11-28 [facility] 1.2.840.114 [id number] Univers 10:41:16 23:59:00 Encounter Whit Carrasco 350.1.13.10 ity of Surgical 4.2.7.2.686 Khris as Specialti [id number] Or dical es 809 [facility] 2019-11-28 2019-11-28 [facility] [id number] Univers 10:41:16 23:59:00 [facility] 2019-11-28 2019-11-28 Office [facility] [id number] [id number] Univers 10:16:15 10:52:41 Visit Whit Carrasco 350.1.13.10 it y of Surgical 4.2.7.2.686 Khris as Specialti [id number] Or dical es 198 [facility] 2019-11-28 2019-11-28 [facility] [id number] Univers 10:15:00 10:15:00 [facility] 2019-11-27 2019-11-27 [facility] [id number] Univers 15:30:00 15:30:00 [facility] Results Test Description Test Time Test Comments Results Result Comments Source LIPASE 2022-07-11 01:52:02 Test Item Value Reference Range Interpretation Comme nts LIPASE (test code = 6390990840) 79 U/L 0-220 Lab Interpretation (test code = 97343-5) [facility] (58912)2022-07-11 01:33:40 Test Item Value Reference Range Interpretation Comments NA (test code = 138 mmol/L 135-145 0835718546) K (test code = 3.9 mmol/L 3.5-5.0 8621016012) CL (test code = 105 mmol/L 98-108 5375689760) CO2 TOTAL (test code = 28 mmol/L 23-31 3061683403) AGAP (test code = 5 2-16 4412663736) BUN (test code = 13 mg/dL 7-23 4269504298) GLUCOSE (test code = 126 mg/dL 70-110 H 3864802813) CREATININE (test code = 0.69 mg/dL 0.50-1.04 0362527192) TOTAL BILI (test code = 0.4 mg/dL 0.1-1.7 8986780107) CALCIUM (test code = 8.5 mg/dL 8.6-10.6 L 4298767979) T PROTEIN (test code = 7.0 g/dL 6.3-8.2 0685500577) ALBUMIN (test code = 3.6 g/dL 3.5-5.0 3584974217) ALK PHOS (test code = 62 U/L 34-122 0973259769) ALTv (test code = 13 U/L 5-35 1742-6) AST(SGOT) (test code = 13 U/L 13-40 4747197416) eGFR (test code = 87.4 mL/min/1.73m2 3201485536) NIMISHA (test code = NIMISHA) Association of Glomerular Filtration Rate (GFR) and Staging of Kidney Disease* + --+ --+ ------+| GFR (mL/min/1.73 m2) ?| With Kidney Damage ?| ?Without Kidney Damage+ --------+ --------+ +| ?>90 ?| ?Stage one ?| ? Normal ?+ ---+ ---+ -------+| ?60-89 ?| ?Stage two ?| ? Decreased GFR ? + --+ --+ ------+| ?30-59 ?| ?Stage three ?| ? Stage three ? + --+ --+ ------+| ?15-29 ?| ?Stage four ? | ? Stage four ?+ ---+ ---+ -------+| ?<15 (or dialysis) ? ?| ?Stage five ? | ? Stage five ?+ ---+ ---+ -------+ *Each stage assumes the associated GFR level has been in effect for at least three months. ?Stages 1 to 5, with or without kidney disease, indicate chronic kidney disease. Notes: Determination of stages one and two (with eGFR >59mL/min/1.73 m2) requires estimation of kidney damage for at least three months as defined by structural or functional abnormalities of the kidney, manifested by either:Pathological abnormalities or Markers of kidney damage (including abnormalities in the composition of the blood or urine or abnormalities in imaging tests). Lab Interpretation Abnormal (test code = 60034-3) [facility] WITH [id number] 01:25:37 Test Item Value Reference Range Interpretation Comments WBC (test code = 6.99 See_Comment [Automated 6690-2) message] The sy stem which generated this result transmitted reference range : 4.30 - 11.10 10*3/?L. The reference range was not used to interpret this result as normal/abnormal . RBC (test code = 3.57 See_Comment L [Automated 789-8) message] The sy stem which generated this result transmitted reference range : 3.93 - 5.25 10*6/?L. The reference range was not used to interpret this result as normal/abnormal . HGB (test code = 11.3 g/dL 11.6-15.0 L 718-7) HCT (test code = 33.2 % 35.7-45.2 L 4544-3) MCV (test code = 93.0 fL 80.6-95.5 787-2) MCH (test code = 31.7 pg 25.9-32.8 785-6) MCHC (test code = 34.0 g/dL 31.6-35.1 786-4) RDW-SD (test code = 46.1 fL 39.0-49.9 40815-2) RDW-CV (test code = 13.6 % 12.0-15.5 788-0) PLT (test code = 181 See_Comment [Automated 777-3) message] The sy stem which generated this result transmitted reference range : 166 - 358 10*3/ ?L. The reference r cesar was not used to interpret this result as normal/abnormal . MPV (test code = 9.6 fL 9.5-12.9 17807-4) NRBC/100 WBC (test 0.0 See_Comment [Automat ed code = 2123057425) message] The system which generated this result transmitted reference range : 0.0 - 10.0 /100 WBCs. The refer ence range was not u sed to interpret th is result as normal/abnormal . NRBC x10^3 (test code See_Comment [Auto mated = 7890368453) message] The s ystem which generated this result transmitted reference range : 10*3/?L. The reference range was not used to interpret this result as normal/abnormal . GRAN MAT (NEUT) % 58.0 % (test code = 770-8) IMM GRAN % (test code 0.60 % = 7712608775) LYMPH % (test code = 31.2 % 736-9) MONO % (test code = 6.3 % 5905-5) EOS % (test code = 3.6 % 713-8) BASO % (test code = 0.3 % 706-2) GRAN MAT x10^3(ANC) 4.06 10*3/uL 1.88-7.09 (test code = 1255865497) IMM GRAN x10^3 (test 0.04 10*3/uL 0.00-0.06 code = 7322534125) LYMPH x10^3 (test code 2.18 10*3/uL 1.32-3.29 = 731-0) MONO x10^3 (test code 0.44 10*3/uL 0.33-0.92 = 742-7) EOS x10^3 (test code = 0.25 10*3/uL 0.03-0.39 711-2) BASO x10^3 (test code 0.01-0.07 = 704-7) Lab Interpretation Abnormal (test code = 14018-5) [facility] [id number] 00:14:00 Test Item Value Reference Range Interpretation Comments AFB culture No growth Specimen isolate (test after 6 weeks InformationSp ecimen code = 543-9) of Source: WoundS pecimen incubation. Site: Abdomen: Wound Cultures (from intrathecal pain pump site) [facility] [id number] 16:00:00 Test Item Value Reference Range Interpretation Comments Anaerobic No anaerobic Specimen culture isolate organisms InformationS pecimen (test code = isolated. Source: FluidSp ecimen 19114-0) Site: Abscess [facility] [id number] 16:00:00 Test Item Value Reference Range Interpretation Comments Anaerobic No anaerobic Specimen culture isolate organisms InformationS pecimen (test code = isolated. Source: FluidSp ecimen 13443-3) Site: Abscess [employer] JopyyyspOMUW-BzN-5 (COVID-19) RNA [Presence] in Respiratory specimen by SHANNAN with probe [id number] 15:06:31 Test Item Value Reference Range Interpretation Comments SARS-CoV-2 (COVID-19) RNA Not detected [Presence] in Respiratory specimen by SHANNAN with probe detection (test code = 04465-7) Whether patient is employed in a Unknown healthcare setting (test code = 80459-1) Whether the patient has symptoms Unknown related to condition of interest (test code = 91278-2) Whether the patient was Unknown hospitalized for condition of interest (test code = 56503-4) Whether the patient was admitted Unknown to intensive care unit (ICU) for condition of interest (test code = 52570-6) Whether patient resides in a Unknown congregate care setting (test code = 91994-3) status (test code = Unknown 20763-1) Date and time of symptom onset Unknown (test code = 99583-0) [facility] [id number] 20:41:00 Test Item Value Reference Range Interpretation Comments Fungus smear No fungi Specimen (test code = observed. InformationSpec imen Source: 144) WoundSpecimen S ite: Abdomen: Wound Cultures (from intrathec al pain pump site) [facility] [id number] 20:41:00 Test Item Value Reference Range Interpretation Comments Fungus smear No fungi Specimen (test code = observed. InformationSpec imMedShape Source: 9813) WoundSpecimen S ite: Abdomen: Wound Cultures (from intrathec al pain pump site) [facility] [id number] 14:26:00 Test Item Value Reference Range Interpretation Comments AFB stain No acid fast Specimen (test code = bacilli (AFB) InformationSpe cimen 676-7) seen. Source: WoundSp ecimen Site: Abdomen: Wound Cultures (from intrathecal pain pump site) [facility] [id number] 14:26:00 Test Item Value Reference Range Interpretation Comments AFB stain No acid fast Specimen (test code = bacilli (AFB) InformationSpe cimen 676-7) seen. Source: WoundSp ecimen Site: Abdomen: Wound Cultures (from intrathecal pain pump site) [facility] [id number] 02:54:00 Test Item Value Reference Range Interpretation Comments POC glucose (test code 150 mg/dL 65-99 H Opera tor Name: = 26747-3) Abiodun Everett ID : [id number] able: RN Notified Lab Interpretation Abnormal (test code = 23507-6) [facility] [id number] 02:54:00 Test Item Value Reference Range Interpretation Comments POC glucose (test code 150 mg/dL 65-99 H Opera tor Name: = 98838-7) Abiodun Cartyvice ID : [id number] able: RN Notified Lab Interpretation Abnormal (test code = 83062-1) [facility] [id number] 09:25:00 Test Item Value Reference Range Interpretation Comments Urine culture (test SEE COMMENT Bacteriu abraham screen code = 5808569) negative. [facility] [id number] 09:25:00 Test Item Value Reference Range Interpretation Comments Urine culture (test SEE COMMENT Bacteriu abraham screen code = 4310762) negative. [facility] RNA [Presence] in Respiratory specimen by SHANNAN with probe [id number] 23:30:57 Test Item Value Reference Range Interpretation Comments SARS-CoV-2 (COVID-19) RNA Not detected [Presence] in Respiratory specimen by SHANNAN with probe detection (test code = 46841-0) Whether patient is employed in a Unknown healthcare setting (test code = 90270-3) Whether the patient has symptoms Unknown related to condition of interest (test code = 07211-2) Whether the patient was Unknown hospitalized for condition of interest (test code = 04673-8) Whether the patient was admitted Unknown to intensive care unit (ICU) for condition of interest (test code = 24984-7) Whether patient resides in a Unknown congregate care setting (test code = 99847-2) status (test code = Unknown 18001-7) Date and time of symptom onset Unknown (test code = 02253-7) [facility] 12 [id number] 00:25:21 Test Item Value Reference Range Interpretation Comments Ventricular rate (test 58 code = 253) Atrial rate (test code 58 = 255) IL interval (test code 172 = 266) QRSD interval (test 86 code = 260) QT interval (test code 446 = 264) QTC interval (test code 437 = 265) P axis 1 (test code = 47 267) QRS axis 1 (test code = 18 268) T wave axis (test code 36 = 270) EKG impression (test Sinus code = 273) bradycardia-Otherwise normal ECG-In automated comparison with ECG of 17-APR-2022 12:36,-No significant change was found- [place] [address] [id number] 00:25:21 Test Item Value Reference Range Interpretation Comments Ventricular rate (test 58 code = 253) Atrial rate (test code 58 = 255) IL interval (test code 172 = 266) QRSD interval (test 86 code = 260) QT interval (test code 446 = 264) QTC interval (test code 437 = 265) P axis 1 (test code = 47 267) QRS axis 1 (test code = 18 268) T wave axis (test code 36 = 270) EKG impression (test Sinus code = 273) bradycardia-Otherwise normal ECG-In automated comparison with ECG of 17-APR-2022 12:36,-No significant change was found- [facility] ([facility]) RNA [Presence] in Respiratory specimen by SHANNAN with probe [id number] 10:28:41 Test Item Value Reference Range Interpretation Comments SARS-CoV-2 (COVID-19) RNA Not detected [Presence] in Respiratory specimen by SHANNAN with probe detection (test code = 49234-8) Whether patient is employed in a Unknown healthcare setting (test code = 20333-2) Whether the patient has symptoms Unknown related to condition of interest (test code = 79121-6) Whether the patient was Unknown hospitalized for condition of interest (test code = 84713-3) Whether the patient was admitted Unknown to intensive care unit (ICU) for condition of interest (test code = 71880-4) Whether patient resides in a Unknown congregate care setting (test code = 52475-2) status (test code = Unknown 18078-1) Date and time of symptom onset Unknown (test code = 97652-9) [facility] [id number] 19:24:53 Test Item Value Reference Range Interpretation Comments APTT Patient (test See_Comment [Automat ed code = 3173-2) message] The system which generated this result transmitted reference range : 23 - 38 Seconds . The reference range was not used to interpr et this result as normal/abnormal . NIMISHA (test code = NIMISHA) The [facility] patient population mean normal value for aPTT is 30 seconds. Lab Interpretation Normal (test code = 06868-2) [facility] / [id number] 19:21:46 Test Item Value Reference Range Interpretation Comments PROTIME PATIENT (test See_Comment [Auto mated message] code = 5964-2) The system wh ich generated this result transmitted ref erence range: 12.0 - 1 4.7 Seconds. The re ference range was not u sed to interpret this result as normal/abnor mal. INR (test code = 6301-6) Nor mal INR <1.1; Warfarin Therap eutic range 2.0 to 3. 0 or 2.5 to 3.5, dep ending upon the indica tions. Lab Interpretation (test Normal code = 10118-2) [facility] WITH [id number] 19:04:14 Test Item Value Reference Range Interpretation Comments WBC (test code = See_Comment [Automated 0790-2) message] The sy stem which generated this result transmitted reference range : 4.30 - 11.10 10*3/?L. The reference range was not used to interpret this result as normal/abnormal . RBC (test code = See_Comment L [Automated 209-8) message] The sy stem which generated this result transmitted reference range : 3.93 - 5.25 10*6/?L. The reference range was not used to interpret this result as normal/abnormal . HGB (test code = 11.8 g/dL 11.6-15.0 718-7) HCT (test code = 36.6 % 35.7-45.2 4544-3) MCV (test code = 95.3 fL 80.6-95.5 787-2) MCH (test code = 30.7 pg 25.9-32.8 785-6) MCHC (test code = 32.2 g/dL 31.6-35.1 786-4) RDW-SD (test code = 50.7 fL 39.0-49.9 H 92869-2) RDW-CV (test code = 14.6 % 12.0-15.5 788-0) PLT (test code = See_Comment [Automated 777-3) message] The sy stem which generated this result transmitted reference range : 166 - 358 10*3/ ?L. The reference r cesar was not used to interpret this result as normal/abnormal . MPV (test code = 9.3 fL 9.5-12.9 L 53539-2) NRBC/100 WBC (test See_Comment [Automat ed code = 3135051823) message] The system which generated this result transmitted reference range : 0.0 - 10.0 /100 WBCs. The refer ence range was not u sed to interpret th is result as normal/abnormal . NRBC x10^3 (test code See_Comment [Auto mated = 1870754291) message] The s ystem which generated this result transmitted reference range : 10*3/?L. The reference range was not used to interpret this result as normal/abnormal . GRAN MAT (NEUT) % 50.0 % (test code = 770-8) IMM GRAN % (test code 0.30 % = 1013210585) LYMPH % (test code = 40.4 % 736-9) MONO % (test code = 6.0 % 5905-5) EOS % (test code = 3.0 % 713-8) BASO % (test code = 0.3 % 706-2) GRAN MAT x10^3(ANC) 3.36 10*3/uL 1.88-7.09 (test code = 1815606449) IMM GRAN x10^3 (test 0.00-0.06 code = 5546091870) LYMPH x10^3 (test code 2.71 10*3/uL 1.32-3.29 = 731-0) MONO x10^3 (test code 0.40 10*3/uL 0.33-0.92 = 742-7) EOS x10^3 (test code = 0.20 10*3/uL 0.03-0.39 711-2) BASO x10^3 (test code 0.01-0.07 = 704-7) Lab Interpretation Abnormal (test code = 32110-0) [facility] GLUCOSE (AUTOMATED)2022-02-18 21:44:59 Test Item Value Reference Range Interpretation Comments POCT GLU (test code = 3347704426) 98 mg/dL 70-110 Lab Interpretation (test code = Normal 77933-9) [facility] GLUCOSE (AUTOMATED)2022-02-18 16:34:29 Test Item Value Reference Range Interpretation Comments POCT GLU (test code = 8475824260) 128 mg/dL 70-110 H Lab Interpretation (test code = Abnormal 72233-3) [facility] GLUCOSE (AUTOMATED)2022-02-18 16:34:29 Test Item Value Reference Range Interpretation Comments POCT GLU (test code = 3980439554) 128 mg/dL 70-110 H Lab Interpretation (test code = Abnormal 09644-0) [facility] GLUCOSE (AUTOMATED)2022-02-18 12:43:53 Test Item Value Reference Range Interpretation Comments POCT GLU (test code = 7617980468) 115 mg/dL 70-110 H Lab Interpretation (test code = Abnormal 34213-5) [facility] GLUCOSE (AUTOMATED)2022-02-18 12:43:53 Test Item Value Reference Range Interpretation Comments POCT GLU (test code = 7289468789) 115 mg/dL 70-110 H Lab Interpretation (test code = Abnormal 15922-0) [facility]ALB,T.PRO,BILI T,BU/BC,ALT,AST,ALK PHOS)2022-02-18 10:37:06 Test Item Value Reference Range Interpretation Comments TOTAL BILI (test code = 8537004109) 0.9 mg/dL 0.1-1.1 BILI UNCON (test code = 6161241386) 0.2 mg/dL 0.1-1.1 BILI CONJ (test code = 2486137321) 0.0 mg/dL 0.0-0.3 T PROTEIN (test code = 2167560633) 7.9 g/dL 6.3-8.2 ALBUMIN (test code = 1952800704) 3.8 g/dL 3.5-5.0 ALK PHOS (test code = 7977282422) 89 U/L 34-122 ALTv (test code = 1742-6) 30 U/L 5-35 AST(SGOT) (test code = 7917041359) 33 U/L 13-40 Lab Interpretation (test code = Normal 81375-7) [facility] METABOLIC PANEL (NA, K, CL, CO2, GLUCOSE, BUN, CREATININE, CA)2022-02-18 10:37:06 Test Item Value Reference Range Interpretation Comments NA (test code = 135 mmol/L 135-145 7317587305) K (test code = 4.1 mmol/L 3.5-5.0 1828499614) CL (test code = 97 mmol/L 98-108 L 4007416110) CO2 TOTAL (test code = 28 mmol/L 23-31 5308381622) AGAP (test code = 2-16 0376795920) BUN (test code = 9 mg/dL 7-23 1280142560) GLUCOSE (test code = 146 mg/dL 70-110 H 2550660667) CREATININE (test code = 0.53 mg/dL 0.50-1.04 0599871173) CALCIUM (test code = 8.3 mg/dL 8.6-10.6 L 3844070316) eGFR (test code = mL/min/1.73m2 9326576321) NIMISHA (test code = NIMISHA) Association of Glomerular Filtration Rate (GFR) and Staging of Kidney Disease* + --+ --+ ------+| GFR (mL/min/1.73 m2) ?| With Kidney Damage ?| ?Without Kidney Damage+ --------+ --------+ +| ?>90 ?| ?Stage one ?| ? Normal ?+ ---+ ---+ -------+| ?60-89 ?| ?Stage two ?| ? Decreased GFR ? + --+ --+ ------+| ?30-59 ?| ?Stage three ?| ? Stage three ? + --+ --+ ------+| ?15-29 ?| ?Stage four ? | ? Stage four ?+ ---+ ---+ -------+| ?<15 (or dialysis) ? ?| ?Stage five ? | ? Stage five ?+ ---+ ---+ -------+ *Each stage assumes the associated GFR level has been in effect for at least three months. ?Stages 1 to 5, with or without kidney disease, indicate chronic kidney disease. Notes: Determination of stages one and two (with eGFR >59mL/min/1.73 m2) requires estimation of kidney damage for at least three months as defined by structural or functional abnormalities of the kidney, manifested by either:Pathological abnormalities or Markers of kidney damage (including abnormalities in the composition of the blood or urine or abnormalities in imaging tests). Lab Interpretation Abnormal (test code = 32101-4) [facility] (ALB,T.PRO,BILI T,BU/BC,ALT,AST,ALK PHOS)2022-02-18 10:37:06 Test Item Value Reference Range Interpretation Comments TOTAL BILI (test code = 7427548979) 0.9 mg/dL 0.1-1.1 BILI UNCON (test code = 1988473568) 0.2 mg/dL 0.1-1.1 BILI CONJ (test code = 1818834739) 0.0 mg/dL 0.0-0.3 T PROTEIN (test code = 1573256305) 7.9 g/dL 6.3-8.2 ALBUMIN (test code = 1605635306) 3.8 g/dL 3.5-5.0 ALK PHOS (test code = 1709665372) 89 U/L 34-122 ALTv (test code = 1742-6) 30 U/L 5-35 AST(SGOT) (test code = 3308366394) 33 U/L 13-40 Lab Interpretation (test code = Normal 34032-4) [facility] (NA, K, CL, CO2, GLUCOSE, BUN, CREATININE, CA)2022-02-18 10:37:06 Test Item Value Reference Range Interpretation Comments NA (test code = 135 mmol/L 135-145 5193312553) K (test code = 4.1 mmol/L 3.5-5.0 5120330521) CL (test code = 97 mmol/L 98-108 L 9024637801) CO2 TOTAL (test code = 28 mmol/L 23-31 4650258211) AGAP (test code = 2-16 0969398525) BUN (test code = 9 mg/dL 7-23 1072506597) GLUCOSE (test code = 146 mg/dL 70-110 H 5485989149) CREATININE (test code = 0.53 mg/dL 0.50-1.04 2712749737) CALCIUM (test code = 8.3 mg/dL 8.6-10.6 L 2598573023) eGFR (test code = mL/min/1.73m2 9704321405) NIMISHA (test code = NIMISHA) Association of Glomerular Filtration Rate (GFR) and Staging of Kidney Disease* + --+ --+ ------+| GFR (mL/min/1.73 m2) ?| With Kidney Damage ?| ?Without Kidney Damage+ --------+ --------+ +| ?>90 ?| ?Stage one ?| ? Normal ?+ ---+ ---+ -------+| ?60-89 ?| ?Stage two ?| ? Decreased GFR ? + --+ --+ ------+| ?30-59 ?| ?Stage three ?| ? Stage three ? + --+ --+ ------+| ?15-29 ?| ?Stage four ? | ? Stage four ?+ ---+ ---+ -------+| ?<15 (or dialysis) ? ?| ?Stage five ? | ? Stage five ?+ ---+ ---+ -------+ *Each stage assumes the associated GFR level has been in effect for at least three months. ?Stages 1 to 5, with or without kidney disease, indicate chronic kidney disease. Notes: Determination of stages one and two (with eGFR >59mL/min/1.73 m2) requires estimation of kidney damage for at least three months as defined by structural or functional abnormalities of the kidney, manifested by either:Pathological abnormalities or Markers of kidney damage (including abnormalities in the composition of the blood or urine or abnormalities in imaging tests). Lab Interpretation Abnormal (test code = 90344-1) [facility] WITHOUT [id number] 09:46:58 Test Item Value Reference Range Interpretation Comments WBC (test code = 6690-2) See_Comment [A utomated message] The system [employer] generated this result transmit olga reference range : 4.30 - 11.10 10*3/?L. The reference range was not used to interpret this result as normal/abnormal . RBC (test code = 789-8) See_Comment [Au tomated message] The system [facility] generated this result transmit olga reference range : 3.93 - 5.25 10* 6/?L. The reference r cesar was not used to interpret this result as normal/abnormal . HGB (test code = 718-7) 12.4 g/dL 11.6-15.0 HCT (test code = 4544-3) 36.8 % 35.7-45.2 MCH (test code = 785-6) 30.2 pg 25.9-32.8 MCV (test code = 787-2) 89.8 fL 80.6-95.5 MCHC (test code = 786-4) 33.7 g/dL 31.6-35.1 PLT (test code = 777-3) See_Comment L [Au tomated message] The system [facility] generated this result transmit olga reference range : 166 - 358 10*3/?L. The reference range was not used to interpret this result as normal/abnormal . MPV (test code = 10.0 fL 9.5-12.9 55094-4) RDW-CV (test code = 12.6 % 12.0-15.5 788-0) RDW-SD (test code = 41.4 fL 39.0-49.9 17729-7) NRBC x10^3 (test code = See_Comment [Au tomated message] 7723778808) The system [facility] generated this result transmit olga reference range : 10*3/?L. The reference range was not used to interpret this result as normal/abnormal . NRBC/100 WBC (test code See_Comment [Au tomated message] = 8098755922) The system [facility] generated this result transmit olga reference range : 0.0 - 10.0 /100 WBC s. The reference r cesar was not used to interpret this result as normal/abnormal . IPF % (test code = 1588319712) Lab Interpretation (test Abnormal code = 03336-4) [facility] WITHOUT [id number] 09:46:58 Test Item Value Reference Range Interpretation Comments WBC (test code = 6690-2) See_Comment [A utomated message] The system [employer] generated this result transmit olga reference range : 4.30 - 11.10 10*3/?L. The reference range was not used to interpret this result as normal/abnormal . RBC (test code = 789-8) See_Comment [Au tomated message] The system [employer] generated this result transmit olga reference range : 3.93 - 5.25 10* 6/?L. The reference r cesar was not used to interpret this result as normal/abnormal . HGB (test code = 718-7) 12.4 g/dL 11.6-15.0 HCT (test code = 4544-3) 36.8 % 35.7-45.2 MCH (test code = 785-6) 30.2 pg 25.9-32.8 MCV (test code = 787-2) 89.8 fL 80.6-95.5 MCHC (test code = 786-4) 33.7 g/dL 31.6-35.1 PLT (test code = 777-3) See_Comment L [Au tomated message] The system [employer] generated this result transmit olga reference range : 166 - 358 10*3/?L. The reference range was not used to interpret this result as normal/abnormal . MPV (test code = 10.0 fL 9.5-12.9 52260-1) RDW-CV (test code = 12.6 % 12.0-15.5 788-0) RDW-SD (test code = 41.4 fL 39.0-49.9 92743-4) NRBC x10^3 (test code = See_Comment [Au tomated message] 1519866983) The system [employer] generated this result transmit olga reference range : 10*3/?L. The reference range was not used to interpret this result as normal/abnormal . NRBC/100 WBC (test code See_Comment [Au tomated message] = 1582327227) The system [facility] generated this result transmit olga reference range : 0.0 - 10.0 /100 WBC s. The reference r cesar was not used to interpret this result as normal/abnormal . IPF % (test code = 6162410409) Lab Interpretation (test Abnormal code = 85318-5) [facility] GLUCOSE (AUTOMATED)2022-02-18 01:13:49 Test Item Value Reference Range Interpretation Comments POCT GLU (test code = 9258243161) 202 mg/dL 70-110 H Lab Interpretation (test code = Abnormal 82799-6) [facility] GLUCOSE (AUTOMATED)2022-02-18 01:13:49 Test Item Value Reference Range Interpretation Comments POCT GLU (test code = 1067933920) 202 mg/dL 70-110 H Lab Interpretation (test code = Abnormal 51311-0) [facility] GLUCOSE (AUTOMATED)2022-02-17 22:51:05 Test Item Value Reference Range Interpretation Comments POCT GLU (test code = 5346070931) 143 mg/dL 70-110 H Lab Interpretation (test code = Abnormal 13454-0) [facility] GLUCOSE (AUTOMATED)2022-02-17 22:51:05 Test Item Value Reference Range Interpretation Comments POCT GLU (test code = 2034496108) 143 mg/dL 70-110 H Lab Interpretation (test code = Abnormal 70732-4) [facility] GLUCOSE (AUTOMATED)2022-02-17 17:26:23 Test Item Value Reference Range Interpretation Comments POCT GLU (test code = 5600784304) 98 mg/dL 70-110 Lab Interpretation (test code = Normal 34562-5) [facility] GLUCOSE (AUTOMATED)2022-02-17 17:26:23 Test Item Value Reference Range Interpretation Comments POCT GLU (test code = 7623426908) 98 mg/dL 70-110 Lab Interpretation (test code = Normal 80816-3) [facility] GLUCOSE (AUTOMATED)2022-02-17 12:35:48 Test Item Value Reference Range Interpretation Comments POCT GLU (test code = 4107200841) 94 mg/dL 70-110 Lab Interpretation (test code = Normal 38333-7) [facility] GLUCOSE (AUTOMATED)2022-02-17 12:35:48 Test Item Value Reference Range Interpretation Comments POCT GLU (test code = 5907029301) 94 mg/dL 70-110 Lab Interpretation (test code = Normal 04285-2) [facility] GLUCOSE (AUTOMATED)2022-02-17 02:08:34 Test Item Value Reference Range Interpretation Comments POCT GLU (test code = 7719344646) 123 mg/dL 70-110 H Lab Interpretation (test code = Abnormal 53708-0) [facility] GLUCOSE (AUTOMATED)2022-02-17 02:08:34 Test Item Value Reference Range Interpretation Comments POCT GLU (test code = 9973286093) 123 mg/dL 70-110 H Lab Interpretation (test code = Abnormal 13788-2) [facility] GLUCOSE (AUTOMATED)2022-02-16 21:35:36 Test Item Value Reference Range Interpretation Comments POCT GLU (test code = 7536439550) 82 mg/dL 70-110 Lab Interpretation (test code = Normal 42664-6) [facility] GLUCOSE (AUTOMATED)2022-02-16 21:35:36 Test Item Value Reference Range Interpretation Comments POCT GLU (test code = 6521784620) 82 mg/dL 70-110 Lab Interpretation (test code = Normal 17675-4) [facility] GLUCOSE (AUTOMATED)2022-02-16 16:54:49 Test Item Value Reference Range Interpretation Comments POCT GLU (test code = 9616743314) 89 mg/dL 70-110 Lab Interpretation (test code = Normal 03230-5) [facility] GLUCOSE (AUTOMATED)2022-02-16 16:54:49 Test Item Value Reference Range Interpretation Comments POCT GLU (test code = 3296450451) 89 mg/dL 70-110 Lab Interpretation (test code = Normal 02320-6) [facility] WITH [id number] 13:02:56 Test Item Value Reference Range Interpretation Comments WBC (test code = See_Comment [Automated 6690-2) message] The sy stem which generated this result transmitted reference range : 4.30 - 11.10 10*3/?L. The reference range was not used to interpret this result as normal/abnormal . RBC (test code = See_Comment L [Automated 789-8) message] The sy stem which generated this result transmitted reference range : 3.93 - 5.25 10*6/?L. The reference range was not used to interpret this result as normal/abnormal . HGB (test code = 12.0 g/dL 11.6-15.0 718-7) HCT (test code = 35.5 % 35.7-45.2 L 4544-3) MCV (test code = 92.0 fL 80.6-95.5 787-2) MCH (test code = 31.1 pg 25.9-32.8 785-6) MCHC (test code = 33.8 g/dL 31.6-35.1 786-4) RDW-SD (test code = 43.7 fL 39.0-49.9 70792-5) RDW-CV (test code = 13.0 % 12.0-15.5 788-0) PLT (test code = See_Comment L [Automated 777-3) message] The sy stem which generated this result transmitted reference range : 166 - 358 10*3/ ?L. The reference r cesar was not used to interpret this result as normal/abnormal . MPV (test code = 9.5 fL 9.5-12.9 80332-8) NRBC/100 WBC (test See_Comment [Automat ed code = 9559265508) message] The system which generated this result transmitted reference range : 0.0 - 10.0 /100 WBCs. The refer ence range was not u sed to interpret th is result as normal/abnormal . NRBC x10^3 (test code See_Comment [Auto mated = 3780967000) message] The s ystem which generated this result transmitted reference range : 10*3/?L. The reference range was not used to interpret this result as normal/abnormal . GRAN MAT (NEUT) % 37.7 % (test code = 770-8) IMM GRAN % (test code 0.20 % = 1350878536) LYMPH % (test code = 49.9 % 736-9) MONO % (test code = 7.8 % 5905-5) EOS % (test code = 3.9 % 713-8) BASO % (test code = 0.5 % 706-2) GRAN MAT x10^3(ANC) 1.64 10*3/uL 1.88-7.09 L (test code = 2397822545) IMM GRAN x10^3 (test 0.00-0.06 code = 2702078173) LYMPH x10^3 (test code 2.17 10*3/uL 1.32-3.29 = 731-0) MONO x10^3 (test code 0.34 10*3/uL 0.33-0.92 = 742-7) EOS x10^3 (test code = 0.17 10*3/uL 0.03-0.39 711-2) BASO x10^3 (test code 0.01-0.07 = 704-7) REACT LYMPHS (test Rare code = 6021292141) Lab Interpretation Abnormal (test code = 17773-8) [facility] WITH [id number] 13:02:56 Test Item Value Reference Range Interpretation Comments WBC (test code = See_Comment [Automated 1490-2) message] The sy stem which generated this result transmitted reference range : 4.30 - 11.10 10*3/?L. The reference range was not used to interpret this result as normal/abnormal . RBC (test code = See_Comment L [Automated 789-8) message] The sy stem which generated this result transmitted reference range : 3.93 - 5.25 10*6/?L. The reference range was not used to interpret this result as normal/abnormal . HGB (test code = 12.0 g/dL 11.6-15.0 718-7) HCT (test code = 35.5 % 35.7-45.2 L 4544-3) MCV (test code = 92.0 fL 80.6-95.5 787-2) MCH (test code = 31.1 pg 25.9-32.8 785-6) MCHC (test code = 33.8 g/dL 31.6-35.1 786-4) RDW-SD (test code = 43.7 fL 39.0-49.9 93374-0) RDW-CV (test code = 13.0 % 12.0-15.5 788-0) PLT (test code = See_Comment L [Automated 777-3) message] The sy stem which generated this result transmitted reference range : 166 - 358 10*3/ ?L. The reference r cesar was not used to interpret this result as normal/abnormal . MPV (test code = 9.5 fL 9.5-12.9 13547-2) NRBC/100 WBC (test See_Comment [Automat ed code = 9699451775) message] The system which generated this result transmitted reference range : 0.0 - 10.0 /100 WBCs. The refer ence range was not u sed to interpret th is result as normal/abnormal . NRBC x10^3 (test code See_Comment [Auto mated = 5929923806) message] The s ystem which generated this result transmitted reference range : 10*3/?L. The reference range was not used to interpret this result as normal/abnormal . GRAN MAT (NEUT) % 37.7 % (test code = 770-8) IMM GRAN % (test code 0.20 % = 9425917811) LYMPH % (test code = 49.9 % 736-9) MONO % (test code = 7.8 % 5905-5) EOS % (test code = 3.9 % 713-8) BASO % (test code = 0.5 % 706-2) GRAN MAT x10^3(ANC) 1.64 10*3/uL 1.88-7.09 L (test code = 2426255716) IMM GRAN x10^3 (test 0.00-0.06 code = 4695484093) LYMPH x10^3 (test code 2.17 10*3/uL 1.32-3.29 = 731-0) MONO x10^3 (test code 0.34 10*3/uL 0.33-0.92 = 742-7) EOS x10^3 (test code = 0.17 10*3/uL 0.03-0.39 711-2) BASO x10^3 (test code 0.01-0.07 = 704-7) REACT LYMPHS (test Rare code = 3863573716) Lab Interpretation Abnormal (test code = 40730-4) [facility] GLUCOSE (AUTOMATED)2022-02-16 12:45:32 Test Item Value Reference Range Interpretation Comments POCT GLU (test code = 4229835483) 89 mg/dL 70-110 Lab Interpretation (test code = Normal 99404-4) [facility] GLUCOSE (AUTOMATED)2022-02-16 12:45:32 Test Item Value Reference Range Interpretation Comments POCT GLU (test code = 6125807418) 89 mg/dL 70-110 Lab Interpretation (test code = Normal 44566-4) [facility] METABOLIC PANEL (NA, K, CL, CO2, GLUCOSE, BUN, CREATININE, CA)2022-02-16 11:15:07 Test Item Value Reference Range Interpretation Comments NA (test code = 137 mmol/L 135-145 4685945856) K (test code = 4.3 mmol/L 3.5-5.0 2537596679) CL (test code = 100 mmol/L 98-108 0305505449) CO2 TOTAL (test code = 33 mmol/L 23-31 H 9539840567) AGAP (test code = 2-16 4740153127) BUN (test code = 7 mg/dL 7-23 0898007515) GLUCOSE (test code = 92 mg/dL 70-110 1305916249) CREATININE (test code = 0.62 mg/dL 0.50-1.04 5360682255) CALCIUM (test code = 8.6 mg/dL 8.6-10.6 8579221385) eGFR (test code = mL/min/1.73m2 2076092062) NIMISHA (test code = NIMISHA) Association of Glomerular Filtration Rate (GFR) and Staging of Kidney Disease* + --+ --+ ------+| GFR (mL/min/1.73 m2) ?| With Kidney Damage ?| ?Without Kidney Damage+ --------+ --------+ +| ?>90 ?| ?Stage one ?| ? Normal ?+ ---+ ---+ -------+| ?60-89 ?| ?Stage two ?| ? Decreased GFR ? + --+ --+ ------+| ?30-59 ?| ?Stage three ?| ? Stage three ? + --+ --+ ------+| ?15-29 ?| ?Stage four ? | ? Stage four ?+ ---+ ---+ -------+| ?<15 (or dialysis) ? ?| ?Stage five ? | ? Stage five ?+ ---+ ---+ -------+ *Each stage assumes the associated GFR level has been in effect for at least three months. ?Stages 1 to 5, with or without kidney disease, indicate chronic kidney disease. Notes: Determination of stages one and two (with eGFR >59mL/min/1.73 m2) requires estimation of kidney damage for at least three months as defined by structural or functional abnormalities of the kidney, manifested by either:Pathological abnormalities or Markers of kidney damage (including abnormalities in the composition of the blood or urine or abnormalities in imaging tests). Lab Interpretation Abnormal (test code = 82195-7) [facility] METABOLIC PANEL (NA, K, CL, CO2, GLUCOSE, BUN, CREATININE, CA)2022-02-16 11:15:07 Test Item Value Reference Range Interpretation Comments NA (test code = 137 mmol/L 135-145 7214089047) K (test code = 4.3 mmol/L 3.5-5.0 9760107948) CL (test code = 100 mmol/L 98-108 9716151722) CO2 TOTAL (test code = 33 mmol/L 23-31 H 3444163710) AGAP (test code = 2-16 3129669690) BUN (test code = 7 mg/dL 7-23 3928151090) GLUCOSE (test code = 92 mg/dL 70-110 9127605594) CREATININE (test code = 0.62 mg/dL 0.50-1.04 9147129692) CALCIUM (test code = 8.6 mg/dL 8.6-10.6 5638505598) eGFR (test code = mL/min/1.73m2 7071265501) NIMISHA (test code = NIMISHA) Association of Glomerular Filtration Rate (GFR) and Staging of Kidney Disease* + --+ --+ ------+| GFR (mL/min/1.73 m2) ?| With Kidney Damage ?| ?Without Kidney Damage+ --------+ --------+ +| ?>90 ?| ?Stage one ?| ? Normal ?+ ---+ ---+ -------+| ?60-89 ?| ?Stage two ?| ? Decreased GFR ? + --+ --+ ------+| ?30-59 ?| ?Stage three ?| ? Stage three ? + --+ --+ ------+| ?15-29 ?| ?Stage four ? | ? Stage four ?+ ---+ ---+ -------+| ?<15 (or dialysis) ? ?| ?Stage five ? | ? Stage five ?+ ---+ ---+ -------+ *Each stage assumes the associated GFR level has been in effect for at least three months. ?Stages 1 to 5, with or without kidney disease, indicate chronic kidney disease. Notes: Determination of stages one and two (with eGFR >59mL/min/1.73 m2) requires estimation of kidney damage for at least three months as defined by structural or functional abnormalities of the kidney, manifested by either:Pathological abnormalities or Markers of kidney damage (including abnormalities in the composition of the blood or urine or abnormalities in imaging tests). Lab Interpretation Abnormal (test code = 43301-2) [facility] Test Item Value Reference Range Interpretation Comments LIPASE (test code = 9730294848) 239 U/L 0-220 H Lab Interpretation (test code = Abnormal 24559-4) [facility] 11:14:47 Test Item Value Reference Range Interpretation Comments LIPASE (test code = 1299261863) 239 U/L 0-220 H Lab Interpretation (test code = Abnormal 30335-1) [facility] GLUCOSE (AUTOMATED)2022-02-16 01:30:45 Test Item Value Reference Range Interpretation Comments POCT GLU (test code = 2081073492) 93 mg/dL 70-110 Lab Interpretation (test code = Normal 09813-0) [facility] GLUCOSE (AUTOMATED)2022-02-16 01:30:45 Test Item Value Reference Range Interpretation Comments POCT GLU (test code = 1079173907) 93 mg/dL 70-110 Lab Interpretation (test code = Normal 15215-6) [facility] GLUCOSE (AUTOMATED)2022-02-15 22:09:25 Test Item Value Reference Range Interpretation Comments POCT GLU (test code = 1975676873) 93 mg/dL 70-110 Lab Interpretation (test code = Normal 79140-3) [facility] GLUCOSE (AUTOMATED)2022-02-15 22:09:25 Test Item Value Reference Range Interpretation Comments POCT GLU (test code = 3155311293) 93 mg/dL 70-110 Lab Interpretation (test code = Normal 28059-1) [facility] GLUCOSE (AUTOMATED)2022-02-15 17:03:03 Test Item Value Reference Range Interpretation Comments POCT GLU (test code = 9360787284) 98 mg/dL 70-110 Lab Interpretation (test code = Normal 06428-2) [facility] GLUCOSE (AUTOMATED)2022-02-15 17:03:03 Test Item Value Reference Range Interpretation Comments POCT GLU (test code = 3539048693) 98 mg/dL 70-110 Lab Interpretation (test code = Normal 21811-8) [facility] GLUCOSE (AUTOMATED)2022-02-15 13:06:53 Test Item Value Reference Range Interpretation Comments POCT GLU (test code = 6289920892) 100 mg/dL 70-110 Lab Interpretation (test code = Normal 02257-7) [facility] GLUCOSE (AUTOMATED)2022-02-15 13:06:53 Test Item Value Reference Range Interpretation Comments POCT GLU (test code = 5959598954) 100 mg/dL 70-110 Lab Interpretation (test code = Normal 45029-3) [facility] WITH [id number] 12:02:32 Test Item Value Reference Range Interpretation Comments WBC (test code = See_Comment L [Automated 6690-2) message] The sy stem which generated this result transmitted reference range : 4.30 - 11.10 10*3/?L. The reference range was not used to interpret this result as normal/abnormal . RBC (test code = See_Comment L [Automated 789-8) message] The sy stem which generated this result transmitted reference range : 3.93 - 5.25 10*6/?L. The reference range was not used to interpret this result as normal/abnormal . HGB (test code = 11.7 g/dL 11.6-15.0 718-7) HCT (test code = 35.3 % 35.7-45.2 L 4544-3) MCV (test code = 91.7 fL 80.6-95.5 787-2) MCH (test code = 30.4 pg 25.9-32.8 785-6) MCHC (test code = 33.1 g/dL 31.6-35.1 786-4) RDW-SD (test code = 43.1 fL 39.0-49.9 70552-4) RDW-CV (test code = 12.9 % 12.0-15.5 788-0) PLT (test code = See_Comment [Automated 777-3) message] The sy stem which generated this result transmitted reference range : 166 - 358 10*3/ ?L. The reference r cesar was not used to interpret this result as normal/abnormal . MPV (test code = 9.4 fL 9.5-12.9 L 38178-1) NRBC/100 WBC (test See_Comment [Automat ed code = 5924313773) message] The system which generated this result transmitted reference range : 0.0 - 10.0 /100 WBCs. The refer ence range was not u sed to interpret th is result as normal/abnormal . NRBC x10^3 (test code See_Comment [Auto mated = [id number]) message] The s ystem which generated this result transmitted reference range : 10*3/?L. The reference range was not used to interpret this result as normal/abnormal . SEG % (test code = 56 % 33-76 16587-3) LYMPH % (test code = 36 % 14-54 28252-9) MONO % (test code = 8 % 0-4 H 44033-5) ANC (test code = 1.99 10*3/uL 1.88-7.09 753-4) Lab Interpretation Abnormal (test code = 40004-6) [facility] WITH [id number] 12:02:32 Test Item Value Reference Range Interpretation Comments WBC (test code = See_Comment L [Automated 6690-2) message] The sy stem which generated this result transmitted reference range : 4.30 - 11.10 10*3/?L. The reference range was not used to interpret this result as normal/abnormal . RBC (test code = See_Comment L [Automated 789-8) message] The sy stem which generated this result transmitted reference range : 3.93 - 5.25 10*6/?L. The reference range was not used to interpret this result as normal/abnormal . HGB (test code = 11.7 g/dL 11.6-15.0 718-7) HCT (test code = 35.3 % 35.7-45.2 L 4544-3) MCV (test code = 91.7 fL 80.6-95.5 787-2) MCH (test code = 30.4 pg 25.9-32.8 785-6) MCHC (test code = 33.1 g/dL 31.6-35.1 786-4) RDW-SD (test code = 43.1 fL 39.0-49.9 59197-0) RDW-CV (test code = 12.9 % 12.0-15.5 788-0) PLT (test code = See_Comment [Automated 777-3) message] The sy stem which generated this result transmitted reference range : 166 - 358 10*3/ ?L. The reference r cesar was not used to interpret this result as normal/abnormal . MPV (test code = 9.4 fL 9.5-12.9 L 08829-6) NRBC/100 WBC (test See_Comment [Automat ed code = 3482350426) message] The system which generated this result transmitted reference range : 0.0 - 10.0 /100 WBCs. The refer ence range was not u sed to interpret th is result as normal/abnormal . NRBC x10^3 (test code See_Comment [Auto mated = 5320564339) message] The s ystem which generated this result transmitted reference range : 10*3/?L. The reference range was not used to interpret this result as normal/abnormal . SEG % (test code = 56 % 33-76 84301-3) LYMPH % (test code = 36 % 14-54 32265-8) MONO % (test code = 8 % 0-4 H 51313-4) ANC (test code = 1.99 10*3/uL 1.88-7.09 753-4) Lab Interpretation Abnormal (test code = 16058-6) [facility] Test Item Value Reference Range Interpretation Comments LIPASE (test code = 8691374722) 370 U/L 0-220 H Lab Interpretation (test code = Abnormal 81808-5) [facility][id number][facility]-15 10:17:10 Test Item Value Reference Range Interpretation Comments NA (test code = 138 mmol/L 135-145 0080002732) K (test code = 4.0 mmol/L 3.5-5.0 7513830706) CL (test code = 100 mmol/L 98-108 6553857238) CO2 TOTAL (test code = 30 mmol/L 23-31 2984798673) AGAP (test code = 2-16 3681782682) BUN (test code = 5 mg/dL 7-23 L 7990769593) GLUCOSE (test code = 100 mg/dL 70-110 9933176367) CREATININE (test code = 0.59 mg/dL 0.50-1.04 1806593427) TOTAL BILI (test code = 0.6 mg/dL 0.1-1.0 3147227261) CALCIUM (test code = 8.8 mg/dL 8.6-10.6 5199262476) T PROTEIN (test code = 7.5 g/dL 6.3-8.2 8155258487) ALBUMIN (test code = 3.4 g/dL 3.5-5.0 L 3605808903) ALK PHOS (test code = 88 U/L 34-122 3771648514) ALTv (test code = 20 U/L 5-35 1742-6) AST(SGOT) (test code = 22 U/L 13-40 0341075787) eGFR (test code = mL/min/1.73m2 1677559904) NIMISHA (test code = NIMISHA) Association of Glomerular Filtration Rate (GFR) and Staging of Kidney Disease* + --+ --+ ------+| GFR (mL/min/1.73 m2) ?| With Kidney Damage ?| ?Without Kidney Damage+ --------+ --------+ +| ?>90 ?| ?Stage one ?| ? Normal ?+ ---+ ---+ -------+| ?60-89 ?| ?Stage two ?| ? Decreased GFR ? + --+ --+ ------+| ?30-59 ?| ?Stage three ?| ? Stage three ? + --+ --+ ------+| ?15-29 ?| ?Stage four ? | ? Stage four ?+ ---+ ---+ -------+| ?<15 (or dialysis) ? ?| ?Stage five ? | ? Stage five ?+ ---+ ---+ -------+ *Each stage assumes the associated GFR level has been in effect for at least three months. ?Stages 1 to 5, with or without kidney disease, indicate chronic kidney disease. Notes: Determination of stages one and two (with eGFR >59mL/min/1.73 m2) requires estimation of kidney damage for at least three months as defined by structural or functional abnormalities of the kidney, manifested by either:Pathological abnormalities or Markers of kidney damage (including abnormalities in the composition of the blood or urine or abnormalities in imaging tests). Lab Interpretation Abnormal (test code = 13683-5) [facility] Test Item Value Reference Range Interpretation Comments LIPASE (test code = 5323670756) 370 U/L 0-220 H Lab Interpretation (test code = Abnormal 24973-0) [facility] ([id number][facility]2022-02-15 10:17:10 Test Item Value Reference Range Interpretation Comments NA (test code = 138 mmol/L 135-145 8519192650) K (test code = 4.0 mmol/L 3.5-5.0 9642011010) CL (test code = 100 mmol/L 98-108 4046112010) CO2 TOTAL (test code = 30 mmol/L 23-31 4880417048) AGAP (test code = 2-16 9511944896) BUN (test code = 5 mg/dL 7-23 L 2499684076) GLUCOSE (test code = 100 mg/dL 70-110 8223139623) CREATININE (test code = 0.59 mg/dL 0.50-1.04 9728713291) TOTAL BILI (test code = 0.6 mg/dL 0.1-1.4 2431385693) CALCIUM (test code = 8.8 mg/dL 8.6-10.6 2998797583) T PROTEIN (test code = 7.5 g/dL 6.3-8.2 8532238532) ALBUMIN (test code = 3.4 g/dL 3.5-5.0 L 3488682594) ALK PHOS (test code = 88 U/L 34-122 7940643292) ALTv (test code = 20 U/L 5-35 1742-6) AST(SGOT) (test code = 22 U/L 13-40 2923598195) eGFR (test code = mL/min/1.73m2 5365324360) NIMISHA (test code = NIMISHA) Association of Glomerular Filtration Rate (GFR) and Staging of Kidney Disease* + --+ --+ ------+| GFR (mL/min/1.73 m2) ?| With Kidney Damage ?| ?Without Kidney Damage+ --------+ --------+ +| ?>90 ?| ?Stage one ?| ? Normal ?+ ---+ ---+ -------+| ?60-89 ?| ?Stage two ?| ? Decreased GFR ? + --+ --+ ------+| ?30-59 ?| ?Stage three ?| ? Stage three ? + --+ --+ ------+| ?15-29 ?| ?Stage four ? | ? Stage four ?+ ---+ ---+ -------+| ?<15 (or dialysis) ? ?| ?Stage five ? | ? Stage five ?+ ---+ ---+ -------+ *Each stage assumes the associated GFR level has been in effect for at least three months. ?Stages 1 to 5, with or without kidney disease, indicate chronic kidney disease. Notes: Determination of stages one and two (with eGFR >59mL/min/1.73 m2) requires estimation of kidney damage for at least three months as defined by structural or functional abnormalities of the kidney, manifested by either:Pathological abnormalities or Markers of kidney damage (including abnormalities in the composition of the blood or urine or abnormalities in imaging tests). Lab Interpretation Abnormal (test code = 75659-4) [facility] GLUCOSE (AUTOMATED)2022-02-15 01:41:34 Test Item Value Reference Range Interpretation Comments POCT GLU (test code = 9740532126) 87 mg/dL 70-110 Lab Interpretation (test code = Normal 02175-6) [facility] GLUCOSE (AUTOMATED)2022-02-15 01:41:34 Test Item Value Reference Range Interpretation Comments POCT GLU (test code = 9066312089) 87 mg/dL 70-110 Lab Interpretation (test code = Normal 52148-5) [facility] GLUCOSE (AUTOMATED)2022-02-14 22:02:36 Test Item Value Reference Range Interpretation Comments POCT GLU (test code = 5198262651) 113 mg/dL 70-110 H Lab Interpretation (test code = Abnormal 68936-6) [facility] 22:02:36 Test Item Value Reference Range Interpretation Comments POCT GLU (test code = 6870317930) 113 mg/dL 70-110 H Lab Interpretation (test code = Abnormal 59285-1) [facility] 17:10:07 Test Item Value Reference Range Interpretation Comments POCT GLU (test code = 4673815618) 89 mg/dL 70-110 Lab Interpretation (test code = Normal 31888-3) [facility] 17:10:07 Test Item Value Reference Range Interpretation Comments POCT GLU (test code = 0137209381) 89 mg/dL 70-110 Lab Interpretation (test code = Normal 31614-8) [facility]2022-02-14 13:15:10 Test Item Value Reference Range Interpretation Comments POCT GLU (test code = 6635789640) 99 mg/dL 70-110 Lab Interpretation (test code = Normal 20390-3) [facility]2022-02-14 13:15:10 Test Item Value Reference Range Interpretation Comments POCT GLU (test code = 5371914895) 99 mg/dL 70-110 Lab Interpretation (test code = Normal 20493-2) [facility] 04:35:25 Test Item Value Reference Range Interpretation Comments POCT GLU (test code = 0167179269) 111 mg/dL 70-110 H Lab Interpretation (test code = Abnormal 22871-8) [facility] 04:35:25 Test Item Value Reference Range Interpretation Comments POCT GLU (test code = 7991231375) 111 mg/dL 70-110 H Lab Interpretation (test code = Abnormal 00262-5) [facility]2022-02-14 01:56:20 Test Item Value Reference Range Interpretation Comments POCT GLU (test code = 2207937892) 163 mg/dL 70-110 H Lab Interpretation (test code = Abnormal 47459-7) [facility] GLUCOSE (AUTOMATED)2022-02-14 01:56:20 Test Item Value Reference Range Interpretation Comments POCT GLU (test code = 6971169083) 163 mg/dL 70-110 H Lab Interpretation (test code = Abnormal 78116-8) [facility] GLUCOSE (AUTOMATED)2022-02-13 22:06:52 Test Item Value Reference Range Interpretation Comments POCT GLU (test code = 6852382069) 111 mg/dL 70-110 H Lab Interpretation (test code = Abnormal 24063-5) [facility] GLUCOSE (AUTOMATED)2022-02-13 22:06:52 Test Item Value Reference Range Interpretation Comments POCT GLU (test code = 1798332720) 111 mg/dL 70-110 H Lab Interpretation (test code = Abnormal 64393-1) [facility] GLUCOSE (AUTOMATED)2022-02-13 16:41:19 Test Item Value Reference Range Interpretation Comments POCT GLU (test code = 3780407304) 105 mg/dL 70-110 Lab Interpretation (test code = Normal 34187-6) [facility] GLUCOSE (AUTOMATED)2022-02-13 16:41:19 Test Item Value Reference Range Interpretation Comments POCT GLU (test code = 2275268205) 105 mg/dL 70-110 Lab Interpretation (test code = Normal 67333-2) [facility] GLUCOSE (AUTOMATED)2022-02-13 12:38:22 Test Item Value Reference Range Interpretation Comments POCT GLU (test code = 0894721486) 112 mg/dL 70-110 H Lab Interpretation (test code = Abnormal 37492-5) [facility] GLUCOSE (AUTOMATED)2022-02-13 12:38:22 Test Item Value Reference Range Interpretation Comments POCT GLU (test code = 4601942766) 112 mg/dL 70-110 H Lab Interpretation (test code = Abnormal 33842-5) [facility] GLUCOSE (AUTOMATED)2022-02-13 01:23:07 Test Item Value Reference Range Interpretation Comments POCT GLU (test code = 4695900858) 101 mg/dL 70-110 Lab Interpretation (test code = Normal 08163-8) [facility] GLUCOSE (AUTOMATED)2022-02-13 01:23:07 Test Item Value Reference Range Interpretation Comments POCT GLU (test code = 9659959537) 101 mg/dL 70-110 Lab Interpretation (test code = Normal 89657-4) [facility] GLUCOSE (AUTOMATED)2022-02-12 21:05:12 Test Item Value Reference Range Interpretation Comments POCT GLU (test code = 9532116581) 104 mg/dL 70-110 Lab Interpretation (test code = Normal 32238-7) [facility] GLUCOSE (AUTOMATED)2022-02-12 21:05:12 Test Item Value Reference Range Interpretation Comments POCT GLU (test code = 1237346464) 104 mg/dL 70-110 Lab Interpretation (test code = Normal 03267-3) [facility]. METABOLIC PANEL ([id number])2022-02-12 14:37:10 Test Item Value Reference Range Interpretation Comments NA (test code = 135 mmol/L 135-145 6794353287) K (test code = 3.8 mmol/L 3.5-5.0 5604921077) CL (test code = 101 mmol/L 98-108 2164036871) CO2 TOTAL (test code = 27 mmol/L 23-31 4723156972) AGAP (test code = 2-16 9571861043) BUN (test code = 7 mg/dL 7-23 0831601991) GLUCOSE (test code = 172 mg/dL 70-110 H 6728693225) CREATININE (test code = 0.50 mg/dL 0.50-1.04 3651244884) TOTAL BILI (test code = 0.5 mg/dL 0.1-1.3 9483054087) CALCIUM (test code = 8.5 mg/dL 8.6-10.6 L 6762562420) T PROTEIN (test code = 7.1 g/dL 6.3-8.2 9134382191) ALBUMIN (test code = 3.2 g/dL 3.5-5.0 L 8553909644) ALK PHOS (test code = 84 U/L 34-122 5130351023) ALTv (test code = 19 U/L 5-35 1742-6) AST(SGOT) (test code = 18 U/L 13-40 2771503922) eGFR (test code = mL/min/1.73m2 8329220263) NIMISHA (test code = NIMISHA) Association of Glomerular Filtration Rate (GFR) and Staging of Kidney Disease* + --+ --+ ------+| GFR (mL/min/1.73 m2) ?| With Kidney Damage ?| ?Without Kidney Damage+ --------+ --------+ +| ?>90 ?| ?Stage one ?| ? Normal ?+ ---+ ---+ -------+| ?60-89 ?| ?Stage two ?| ? Decreased GFR ? + --+ --+ ------+| ?30-59 ?| ?Stage three ?| ? Stage three ? + --+ --+ ------+| ?15-29 ?| ?Stage four ? | ? Stage four ?+ ---+ ---+ -------+| ?<15 (or dialysis) ? ?| ?Stage five ? | ? Stage five ?+ ---+ ---+ -------+ *Each stage assumes the associated GFR level has been in effect for at least three months. ?Stages 1 to 5, with or without kidney disease, indicate chronic kidney disease. Notes: Determination of stages one and two (with eGFR >59mL/min/1.73 m2) requires estimation of kidney damage for at least three months as defined by structural or functional abnormalities of the kidney, manifested by either:Pathological abnormalities or Markers of kidney damage (including abnormalities in the composition of the blood or urine or abnormalities in imaging tests). Lab Interpretation Abnormal (test code = 96496-5) [facility]. METABOLIC PANEL ([id number])2022-02-12 14:37:10 Test Item Value Reference Range Interpretation Comments NA (test code = 135 mmol/L 135-145 3798074291) K (test code = 3.8 mmol/L 3.5-5.0 3080432521) CL (test code = 101 mmol/L 98-108 7831192821) CO2 TOTAL (test code = 27 mmol/L 23-31 5914993814) AGAP (test code = 2-16 8776198941) BUN (test code = 7 mg/dL 7-23 6975783904) GLUCOSE (test code = 172 mg/dL 70-110 H 9167493163) CREATININE (test code = 0.50 mg/dL 0.50-1.04 1599344464) TOTAL BILI (test code = 0.5 mg/dL 0.1-1.1 0816995081) CALCIUM (test code = 8.5 mg/dL 8.6-10.6 L 9927903221) T PROTEIN (test code = 7.1 g/dL 6.3-8.2 5592221168) ALBUMIN (test code = 3.2 g/dL 3.5-5.0 L 6377881645) ALK PHOS (test code = 84 U/L 34-122 6575543941) ALTv (test code = 19 U/L 5-35 1742-6) AST(SGOT) (test code = 18 U/L 13-40 1738783535) eGFR (test code = mL/min/1.73m2 8283219139) NIMISHA (test code = NIMISHA) Association of Glomerular Filtration Rate (GFR) and Staging of Kidney Disease* + --+ --+ ------+| GFR (mL/min/1.73 m2) ?| With Kidney Damage ?| ?Without Kidney Damage+ --------+ --------+ +| ?>90 ?| ?Stage one ?| ? Normal ?+ ---+ ---+ -------+| ?60-89 ?| ?Stage two ?| ? Decreased GFR ? + --+ --+ ------+| ?30-59 ?| ?Stage three ?| ? Stage three ? + --+ --+ ------+| ?15-29 ?| ?Stage four ? | ? Stage four ?+ ---+ ---+ -------+| ?<15 (or dialysis) ? ?| ?Stage five ? | ? Stage five ?+ ---+ ---+ -------+ *Each stage assumes the associated GFR level has been in effect for at least three months. ?Stages 1 to 5, with or without kidney disease, indicate chronic kidney disease. Notes: Determination of stages one and two (with eGFR >59mL/min/1.73 m2) requires estimation of kidney damage for at least three months as defined by structural or functional abnormalities of the kidney, manifested by either:Pathological abnormalities or Markers of kidney damage (including abnormalities in the composition of the blood or urine or abnormalities in imaging tests). Lab Interpretation Abnormal (test code = 69344-9) [facility]TOTAL CHOLESTEROL, TRIGLYCERIDES, HDL)2022-02-11 00:06:29 Test Item Value Reference Range Interpretation Comments CHOL (test code = 167 mg/dL 120-200 5315544089) HDL (test code = 22 mg/dL See_Comment L [Automated message] 3754263366) The system [employer] generated this result transmit olga reference range : >=50. The refer ence range was not u sed to interpret th is result as normal/abnormal . HDLC RATIO (test code = See_Comment H [Au tomated message] 8458437081) The system [employer] generated this result transmit olga reference range : <=4.5. The refe rence range was not u sed to interpret th is result as normal/abnormal . TRIG (test code = 135 mg/dL 30-170 5172038903) LDL CHOL (test code = 118 mg/dL See_Comment [Auto mated message] 98729-1) The system [employer] generated this result transmit olga reference range : <=160. The refe rence range was not u sed to interpret th is result as normal/abnormal . VLDL (test code = 27 mg/dL 5-60 0359219570) Lab Interpretation (test Abnormal code = 24596-2) [facility]67776[facility]TOTAL CHOLESTEROL, TRIGLYCERIDES, HDL)2022-02-11 00:06:29 Test Item Value Reference Range Interpretation Comments CHOL (test code = 167 mg/dL 120-200 6471974908) HDL (test code = 22 mg/dL See_Comment L [Automated message] 3988088236) The system [employer] generated this result transmit olga reference range : >=50. The refer ence range was not u sed to interpret th is result as normal/abnormal . HDLC RATIO (test code = See_Comment H [Au tomated message] 2977346417) The system [employer] generated this result transmit olga reference range : <=4.5. The refe rence range was not u sed to interpret th is result as normal/abnormal . TRIG (test code = 135 mg/dL 30-170 7308193088) LDL CHOL (test code = 118 mg/dL See_Comment [Auto mated message] 89698-0) The system whic h generated this result transmit olga reference range : <=160. The refe rence range was not u sed to interpret th is result as normal/abnormal . VLDL (test code = 27 mg/dL 5-60 2100320831) Lab Interpretation (test Abnormal code = 37896-9) [facility] WITH [id number] 20:00:18 Test Item Value Reference Range Interpretation Comments WBC (test code = See_Comment [Automated 6690-2) message] The sy stem which generated this result transmitted reference range : 4.30 - 11.10 10*3/?L. The reference range was not used to interpret this result as normal/abnormal . RBC (test code = See_Comment [Automated 789-8) message] The sy stem which generated this result transmitted reference range : 3.93 - 5.25 10*6/?L. The reference range was not used to interpret this result as normal/abnormal . HGB (test code = 12.4 g/dL 11.6-15.0 718-7) HCT (test code = 36.6 % 35.7-45.2 4544-3) MCV (test code = 91.5 fL 80.6-95.5 787-2) MCH (test code = 31.0 pg 25.9-32.8 785-6) MCHC (test code = 33.9 g/dL 31.6-35.1 786-4) RDW-SD (test code = 44.4 fL 39.0-49.9 22011-2) RDW-CV (test code = 13.1 % 12.0-15.5 788-0) PLT (test code = See_Comment [Automated 777-3) message] The sy stem which generated this result transmitted reference range : 166 - 358 10*3/ ?L. The reference r cesar was not used to interpret this result as normal/abnormal . MPV (test code = 10.4 fL 9.5-12.9 77905-3) NRBC/100 WBC (test See_Comment [Automat ed code = 7444901618) message] The system which generated this result transmitted reference range : 0.0 - 10.0 /100 WBCs. The refer ence range was not u sed to interpret th is result as normal/abnormal . NRBC x10^3 (test code See_Comment [Auto mated = 0821643260) message] The s ystem which generated this result transmitted reference range : 10*3/?L. The reference range was not used to interpret this result as normal/abnormal . SEG % (test code = 42 % 33-76 35902-3) BAND % (test code = 4 % 0-1 H 96263-2) LYMPH % (test code = 38 % 14-54 36645-7) REACT LYMPH % (test 2 % code = 0466587404) LG GRAN LYMPH % (test 2 % See_Comment H [Auto mated code = 10565-2) message] The system which generated this result transmitted reference range : <=0. The refere nce range was not u sed to interpret th is result as normal/abnormal . MONO % (test code = 8 % 0-4 H 39672-7) EOS % (test code = 4 % 0-3 H 60184-0) ANC (test code = 3.05 10*3/uL 1.88-7.09 753-4) SCHISTOCYTES (test 1+ A code = 800-3) Lab Interpretation Abnormal (test code = 12249-3) [facility] WITH [id number] 20:00:18 Test Item Value Reference Range Interpretation Comments WBC (test code = See_Comment [Automated 6690-2) message] The sy stem which generated this result transmitted reference range : 4.30 - 11.10 10*3/?L. The reference range was not used to interpret this result as normal/abnormal . RBC (test code = See_Comment [Automated 789-8) message] The sy stem which generated this result transmitted reference range : 3.93 - 5.25 10*6/?L. The reference range was not used to interpret this result as normal/abnormal . HGB (test code = 12.4 g/dL 11.6-15.0 718-7) HCT (test code = 36.6 % 35.7-45.2 4544-3) MCV (test code = 91.5 fL 80.6-95.5 787-2) MCH (test code = 31.0 pg 25.9-32.8 785-6) MCHC (test code = 33.9 g/dL 31.6-35.1 786-4) RDW-SD (test code = 44.4 fL 39.0-49.9 09885-8) RDW-CV (test code = 13.1 % 12.0-15.5 788-0) PLT (test code = See_Comment [Automated 777-3) message] The sy stem which generated this result transmitted reference range : 166 - 358 10*3/ ?L. The reference r cesar was not used to interpret this result as normal/abnormal . MPV (test code = 10.4 fL 9.5-12.9 04389-1) NRBC/100 WBC (test See_Comment [Automat ed code = 9944064430) message] The system which generated this result transmitted reference range : 0.0 - 10.0 /100 WBCs. The refer ence range was not u sed to interpret th is result as normal/abnormal . NRBC x10^3 (test code See_Comment [Auto mated = 4130306800) message] The s ystem which generated this result transmitted reference range : 10*3/?L. The reference range was not used to interpret this result as normal/abnormal . SEG % (test code = 42 % 33-76 07997-9) BAND % (test code = 4 % 0-1 H 75398-9) LYMPH % (test code = 38 % 14-54 71036-6) REACT LYMPH % (test 2 % code = 2982713002) LG GRAN LYMPH % (test 2 % See_Comment H [Auto mated code = 72815-7) message] The system which generated this result transmitted reference range : <=0. The refere nce range was not u sed to interpret th is result as normal/abnormal . MONO % (test code = 8 % 0-4 H 99034-3) EOS % (test code = 4 % 0-3 H 39627-7) ANC (test code = 3.05 10*3/uL 1.88-7.09 753-4) SCHISTOCYTES (test 1+ A code = 800-3) Lab Interpretation Abnormal (test code = 11739-4) [facility]. METABOLIC PANEL ([id number])2022-02-10 19:12:08 Test Item Value Reference Range Interpretation Comments NA (test code = 135 mmol/L 135-145 5293024842) K (test code = 4.5 mmol/L 3.5-5.0 0238014424) CL (test code = 95 mmol/L 98-108 L 1291443248) CO2 TOTAL (test code = 30 mmol/L 23-31 3597485204) AGAP (test code = 2-16 1696818418) BUN (test code = 11 mg/dL 7-23 8363323593) GLUCOSE (test code = 108 mg/dL 70-110 6923328127) CREATININE (test code = 0.62 mg/dL 0.50-1.04 3942317192) TOTAL BILI (test code = 0.4 mg/dL 0.1-1.0 5085632856) CALCIUM (test code = 9.1 mg/dL 8.6-10.6 7902612547) T PROTEIN (test code = 7.8 g/dL 6.3-8.2 6688828465) ALBUMIN (test code = 3.7 g/dL 3.5-5.0 8136327304) ALK PHOS (test code = 100 U/L 34-122 [id number]) ALTv (test code = 24 U/L 5-35 1742-6) AST(SGOT) (test code = 16 U/L 13-40 1683670455) eGFR (test code = mL/min/1.73m2 7482029490) NIMISHA (test code = NIMISHA) Association of Glomerular Filtration Rate (GFR) and Staging of Kidney Disease* + --+ --+ ------+| GFR (mL/min/1.73 m2) ?| With Kidney Damage ?| ?Without Kidney Damage+ --------+ --------+ +| ?>90 ?| ?Stage one ?| ? Normal ?+ ---+ ---+ -------+| ?60-89 ?| ?Stage two ?| ? Decreased GFR ? + --+ --+ ------+| ?30-59 ?| ?Stage three ?| ? Stage three ? + --+ --+ ------+| ?15-29 ?| ?Stage four ? | ? Stage four ?+ ---+ ---+ -------+| ?<15 (or dialysis) ? ?| ?Stage five ? | ? Stage five ?+ ---+ ---+ -------+ *Each stage assumes the associated GFR level has been in effect for at least three months. ?Stages 1 to 5, with or without kidney disease, indicate chronic kidney disease. Notes: Determination of stages one and two (with eGFR >59mL/min/1.73 m2) requires estimation of kidney damage for at least three months as defined by structural or functional abnormalities of the kidney, manifested by either:Pathological abnormalities or Markers of kidney damage (including abnormalities in the composition of the blood or urine or abnormalities in imaging tests). Lab Interpretation Abnormal (test code = 53471-6) [facility]. METABOLIC PANEL (58389)2022-02-10 19:12:08 Test Item Value Reference Range Interpretation Comments NA (test code = 135 mmol/L 135-145 8897071726) K (test code = 4.5 mmol/L 3.5-5.0 7429585514) CL (test code = 95 mmol/L 98-108 L 2146464089) CO2 TOTAL (test code = 30 mmol/L 23-31 1999618686) AGAP (test code = 2-16 1075088145) BUN (test code = 11 mg/dL 7-23 2548776396) GLUCOSE (test code = 108 mg/dL 70-110 5596504976) CREATININE (test code = 0.62 mg/dL 0.50-1.04 5752602281) TOTAL BILI (test code = 0.4 mg/dL 0.1-1.1 3130991404) CALCIUM (test code = 9.1 mg/dL 8.6-10.6 8181948141) T PROTEIN (test code = 7.8 g/dL 6.3-8.2 2162929406) ALBUMIN (test code = 3.7 g/dL 3.5-5.0 9020311111) ALK PHOS (test code = 100 U/L 34-122 8142352560) ALTv (test code = 24 U/L 5-35 1742-6) AST(SGOT) (test code = 16 U/L 13-40 5193987243) eGFR (test code = mL/min/1.73m2 8402122036) NIMISHA (test code = NIMISHA) Association of Glomerular Filtration Rate (GFR) and Staging of Kidney Disease* + --+ --+ ------+| GFR (mL/min/1.73 m2) ?| With Kidney Damage ?| ?Without Kidney Damage+ --------+ --------+ +| ?>90 ?| ?Stage one ?| ? Normal ?+ ---+ ---+ -------+| ?60-89 ?| ?Stage two ?| ? Decreased GFR ? + --+ --+ ------+| ?30-59 ?| ?Stage three ?| ? Stage three ? + --+ --+ ------+| ?15-29 ?| ?Stage four ? | ? Stage four ?+ ---+ ---+ -------+| ?<15 (or dialysis) ? ?| ?Stage five ? | ? Stage five ?+ ---+ ---+ -------+ *Each stage assumes the associated GFR level has been in effect for at least three months. ?Stages 1 to 5, with or without kidney disease, indicate chronic kidney disease. Notes: Determination of stages one and two (with eGFR >59mL/min/1.73 m2) requires estimation of kidney damage for at least three months as defined by structural or functional abnormalities of the kidney, manifested by either:Pathological abnormalities or Markers of kidney damage (including abnormalities in the composition of the blood or urine or abnormalities in imaging tests). Lab Interpretation Abnormal (test code = 21178-6) [facility] Test Item Value Reference Range Interpretation Comments LIPASE (test code = 0010275948) 2251 U/L 0-220 H Lab Interpretation (test code = Abnormal 47318-0) [facility] Test Item Value Reference Range Interpretation Comments LIPASE (test code = 1608055615) 2251 U/L 0-220 H Lab Interpretation (test code = Abnormal 25360-1) [facility] [id number] 19:50:42 Test Item Value Reference Range Interpretation Comments POCT Molecular FluA (test code = Negative Negative 88488-8) POCT Molecular FluB (test code = Negative Negative 96897-4) Lab Interpretation (test code = Normal 01165-5) [facility] RNA [Presence] in Respiratory specimen by SHANNAN with probe [id number] 19:14:54 Test Item Value Reference Range Interpretation Comments SARS-CoV-2 (COVID-19) RNA Not detected Not-Detected [Presence] in Respiratory specimen by SHANNAN with probe detection (test code = 58586-3) JONAH ODONNELLRS-CoV-2 (COVID-19) RNA [Presence] in Respiratory specimen by SHANNAN with probe [id number] 18:15:10 Test Item Value Reference Range Interpretation Comments SARS-CoV-2 (COVID-19) RNA Not detected Not-Detected [Presence] in Respiratory specimen by SHANNAN with probe detection (test code = 99289-7) JONAH HERNANDEZ-CoV-2 (COVID-19) RNA [Presence] in Respiratory specimen by SHANNAN with probe [id number] 23:19:02 Test Item Value Reference Range Interpretation Comments SARS-CoV-2 (COVID-19) RNA Not detected Not-Detected [Presence] in Respiratory specimen by SHANNAN with probe detection (test code = 76016-1) JONAH JOSEPH"
[2022-09-17 13:38] LABS: Hematocrit 39.4 % (36.0-45.0); Lymphocytes % 27.3 % (15.3-44.8); MCV 92.6 fL (80-100); RBC Red Blood Cell Count 4.26 M/uL (3.86-4.86)
[2022-09-17] MEDS ORDERED: NA CHLORIDE 0.9% 1,000 ML ONE (13:38)
[2022-09-17] MEDS ORDERED: ONDANSETRON 4 MG/2 ML VIAL ONE ×2 (13:38→16:27)
[2022-09-17 13:40] LABS: Protime INR 1.04
[2022-09-17 13:55] LABS: ALT/SGPT 28 U/L (13-56); AST/SGOT 15 U/L (15-37); Albumin 3.3 g/dL (3.4-5.0); Alkaline Phosphatase 81 U/L (45-117); BUN Blood Urea Nitrogen 16 mg/dL (7-18); Bicarbonate 27 mEq/L (21-32); Bilirubin Direct < 0.1 mg/dL (0-0.2); Bilirubin Indirect, Calculated ND mg/dL (0.2-0.8); Bilirubin Total 0.3 mg/dL (0.2-1.0); Glomerular Filtration Rate 102 ml/min (=/>90); Glucose Level 137 mg/dL (74-106); Lipase 25 U/L (13-75); Magnesium 1.9 mg/dL (1.6-2.4); NT PRO-BNP 10 pg/mL (<125); Sodium Level 135 mEq/L (136-145); Troponin High Sensitivity 5.9 pg/mL (<58.9)
--- NOTE | 2022-09-17 14:15 | RAD REPORT ---
EXAM DESCRIPTION: [place] Single View09/17/2022 2:01 pm CLINICAL HISTORY: COUGH COMPARISON: Chest Pa And Lat (2 Views) dated 01/31/2019; Chest Pa And Lat (2 Views) dated 08/01/2018; Chest Single View dated 10/04/2017; Chest Pa And Lat (2 Views) dated 01/22/2016 TECHNIQUE: Portable AP view of the chest. FINDINGS: The lungs are clear. Evaluation somewhat limited by decreased penetration at the lung base s, particular in the right costophrenic angle region. Long segment dave and screw fusion of the silast ic spine again seen. No pneumothorax or effusion. The cardiomediastinal contours are unremarkable. IMPRESSION: No acute cardiopulmonary process.
[2022-09-17 15:39] LABS: Specific Gravity 1.008 (1.005-1.030); Urine Bilirubin NEGATIVE (Negative); Urine Blood Negative (Negative); Urine Clarity Clear (Clear); Urine Color Light-Yellow (Yellow); Urine Glucose NEGATIVE (Negative); Urine Protein NEGATIVE (Negative); Urine Urobilinogen Normal (Normal); Urine pH 5.5 (5.0-7.0)
--- NOTE | 2022-09-17 17:57 | RAD REPORT ---
EXAM DESCRIPTION: CT - Abdomen Pelvis W Contrast - 09/17/2022 4:44 pm CLINICAL HISTORY: ABD PAIN COMPARISON: Abdomen Pelvis W Contrast dated 07/25/2022; Abdomen Pelvis W Contrast dated 10/24/2020; Abdomen Pelvis W Contrast dated 02/26/2019; Abdomen Pelvis W Contrast dated 12/14/2018 TECHNIQUE: Thin cut axial CT imaging of the abdomen and pelvis was performed following intravenous a dministration of 94 mL Isovue 300. Multiplanar reformats were generated and reviewed. All CT scans are performed using dose optimization technique as appropriate and may include automated exposure control or mA/KV adjustment according to patient size. FINDINGS: Streak artifact related to extensive posterior approach thoracolumbar fusion hardware limi ts evaluation, despite utilizing a roman of metal artifact reduction technique. Interval decrease in thickness and central fluid components of the right anterior lower abdominal wal l subcutaneous soft tissue collection, now measuring 1.4 centimeter in greatest thickness compared to 1.7 centimeter on the prior CT. Small caliber tubing related to previously present pain pump remains . No soft tissue gas. No suspicious findings in the lung bases. The liver, spleen, and pancreas show no suspicious findings. Status post cholecystectomy. Symmetric renal function is seen with no hydronephrosis or suspicious renal mass. No dilated bowel loops or bowel wall thickening. No free air, free fluid or inflammatory stranding. N o hernia, mass or bulky lymphadenopathy. The urinary bladder is without significant finding. No suspicious bony findings. Stable pronounced levoconvex scoliosis of the lumbar spine were apex at L2-3. Superior endplate posterior compression deformity at L4 is stable, chronic in appearance. IMPRESSION: Interval decrease in thickness and central fluid density components within the right low er anterior abdominal wall subcutaneous soft tissue collection. No other acute intra-abdominal process. Other stable findings as above.
--- NOTE | 2022-09-17 18:10 | ER ---
Nurse's Notes [facility] Name: Siri Rutherford Age: 56 yrs Sex: Female : 1965 Arrival Date: 09/17/2022 Time: 12:09 Bed 8 Private MD: Diagnosis: Diarrhea, unspecified;Obesity, unspecified;Hidradenitis suppurativa;Edema, unspecified Presentation: 09/17 12:36 Chief complaint: Patient states: Concerned about abscess on right side of abdomen, had nj1 pain pump taken out jun 20 due to infection. Has CT with barium contrast pending per Dr Major. States her left groin lymph node started leaking yesterday, has hidradenitis suppurativa. Has been feeling weak for the last 3-4 days. Coronavirus screen: Vaccine status: Patient reports receiving the 2nd dose of the covid vaccine. Ebola Screen: Patient reports travel to Ebola-affected area in the 21 days before illness onset. Patient reports having traveled to: [place] and [place]. Initial Sepsis Screen: Does the patient meet any 2 criteria? HR > 90 bpm. No. Patient's initial sepsis screen is negative. Does the patient have a suspected source of infection? No. Patient's initial sepsis screen is negative. Risk Assessment: Do you want to hurt yourself or someone else? Patient reports no desire to harm self or others. Onset of symptoms was September 13, 2022. 12:36 Method Of Arrival: Wheelchair nj1 12:36 Acuity: MARILU 3 nj1 Historical: - Allergies: 12:48 Bentyl; nj1 12:48 Compazine; nj1 12:48 Demerol (Itching); nj1 12:48 Latex, Natural Rubber; nj1 - PMHx: 12:48 Chronic pain; Degenerative disc disease; Diverticulitis; lymphedema; Hidradenitis nj1 suppurativa; Pancreatitis; - PSHx: 12:48 back sx; hysterectomy; multiple orthopedic surgeries; Cholecystectomy; nj1 - Immunization history:: Client reports receiving the 2nd dose of the Covid vaccine. - Social history:: Smoking status: Patient reports the use of cigarette tobacco products, denies chronic smoking, but will smoke occasionally, Reported history of juuling and/or vaping. Screenin:27 [facility] ED Fall Risk Assessment (Adult) History of falling in the last 3 months, ko1 including since admission No falls in past 3 months (0 pts) Confusion or Disorientation No (0 pts) Intoxicated or Sedated No (0 pts) Impaired Gait Yes (1 pt) Mobility Assist Device Used Yes (1 pt) Altered Elimination No (0 pt) Score/Fall Risk Level 0 - 2 = Low Risk Oriented to surroundings, Maintained a safe environment, Educated pt \T\ family on fall prevention, incl call for assistance when getting out of bed, Assessed \T\ reinforced patient's understanding of fall precautions, Provided non-skid footwear, Hourly rounding (assess needs \T\ fall precautionary measures) done, Used ambulatory aids as needed (educated on \T\ assisted with), Used gait belt as appropriate. Abuse screen: Denies threats or abuse. Denies injuries from another. Nutritional screening: No deficits noted. Tuberculosis screening: No symptoms or risk factors identified. Assessment: 13:15 General: Appears in no apparent distress. uncomfortable, Behavior is calm, cooperative, ko1 appropriate for age. Pain: Complains of pain in all over. Neuro: No deficits noted. Cardiovascular: No deficits noted. Respiratory: No deficits noted. GI: Reports diarrhea, nausea. : No deficits noted. EENT: No deficits noted. Derm: Reports draining of lymphedema between legs. Musculoskeletal: No deficits noted. Vital Signs: 12:36 BP 129 / 77; Pulse 103; Resp 17; Temp 98.6; Pulse Ox 100% on R/A; Weight 120.2 kg; nj1 Height 5 ft. 5 in. ; Pain 8/10; 14:27 BP 101 / 58; Pulse 91; Resp 18; Pulse Ox 99% on R/A; ko1 16:42 BP 148 / 88; Pulse 94; Resp 18; Pulse Ox 99% ; ko1 12:36 Body Mass Index 44.10 (120.20 kg, 165.1 cm) nj1 12:36 Pain Scale: Adult in1 ED Course: 12:13 Patient arrived in ED. am2 12:48 Triage completed. nj1 12:50 Arm band placed on right wrist. nj1 12:58 Rafita Navarro MD is Attending Physician. [facility] 13:00 Linn Daily RN is Primary Nurse. ko1 13:20 Inserted saline lock: 22 gauge in left antecubital area, using aseptic technique. Blood ko1 collected. 13:27 Lactate w/ 2H reflex if indic. Sent. ko1 13:27 Blood Culture Adult (2) Sent. ko1 13:28 Basic Metabolic Panel Sent. ko1 13:28 CBC with Diff Sent. ko1 13:28 LFT's Sent. ko1 13:28 Magnesium Sent. ko1 13:28 NT PRO-BNP Sent. ko1 13:28 PT-INR Sent. ko1 13:28 Troponin HS Sent. ko1 13:28 Lipase Sent. ko1 13:50 Patient has correct armband on for positive identification. Bed in low position. Call ko1 light in reach. Side rails up X 1. Client placed on continuous cardiac and pulse oximetry monitoring. NIBP monitoring applied. conveyor monitor on. Door closed. Noise minimized. Lights dimmed. Warm blanket given. 14:03 XRAY Chest (1 view) In Process Unspecified. EDMS 15:00 Oral contrast given. mw3 15:34 Urinalysis w/ reflexes Sent. ko1 16:42 No provider procedures requiring assistance completed. ko1 16:46 CT Abd/Pelvis - PO and IV Contrast In Process Unspecified. EDMS 18:09 Nazario Major MD is Referral Physician. shabnam 18:24 IV discontinued, intact, bleeding controlled, No redness/swelling at site. Pressure ko1 dressing applied. Administered Medications: 13:32 Drug: NS 0.9% IV 1000 ml Route: IV; Rate: 1 bolus; Site: left antecubital; ko1 13:43 Drug: Ondansetron IVP 4 mg Route: IVP; Site: left antecubital; ko1 14:48 Drug: NS 0.9% IV 1000 ml Route: IV; Rate: 1 bolus; Site: left antecubital; ko1 16:25 Drug: Ondansetron IVP 4 mg Route: IVP; Site: left antecubital; ko1 Medication: 14:27 VIS not applicable for this client. ko1 Outcome: 18:09 Discharge ordered by . shabnam 18:24 Discharged to home via wheelchair, with family. ko1 18:24 Condition: improved 18:24 Discharge instructions given to patient, family, Instructed on discharge instructions, follow up and referral plans. medication usage, Demonstrated understanding of instructions, follow-up care, medications, Prescriptions given X 1. 18:32 Patient left the ED. ko1 Signatures: Dispatcher [employer] EDMS Rafita Navarro MD MD cha Moreno, Amanda am2 Cristy Talbot 3 Linn Daily RN RN ko1 Maye Moise RN RN nj1
--- NOTE | 2022-09-17 18:10 | EDPHYS ---
Physician Documentation [facility] Name: Siri Rutherford Age: 56 yrs Sex: Female : 1965 Arrival Date: 09/17/2022 Time: 12:09 Bed 8 Private MD: INES Physician Rafita Navarro HPI: 09/17 14:45 This 56 yrs old Female presents to ER via Wheelchair with complaints of shabnam Diarrhea, General Weakness, dehydration. 14:45 The patient presents to the emergency department with nausea, vomiting, diarrhea, shabnam abdominal pain, of the right upper quadrant, left upper quadrant, right lower quadrant and left lower quadrant. Onset: The symptoms/episode began/occurred 3 day(s) ago. Possible causes: unknown. The symptoms are aggravated by nothing. The symptoms are alleviated by nothing. Associated signs and symptoms: The patient has no apparent associated signs or symptoms. The patient has experienced similar episodes in the past, multiple times. Historical: - Allergies: 12:48 Bentyl; nj1 12:48 Compazine; nj1 12:48 Demerol (Itching); nj1 12:48 Latex, Natural Rubber; nj1 - PMHx: 12:48 Chronic pain; Degenerative disc disease; Diverticulitis; lymphedema; Hidradenitis nj1 suppurativa; Pancreatitis; - PSHx: 12:48 back sx; hysterectomy; multiple orthopedic surgeries; Cholecystectomy; nj1 - Immunization history:: Client reports receiving the 2nd dose of the Covid vaccine. - Social history:: Smoking status: Patient reports the use of cigarette tobacco products, denies chronic smoking, but will smoke occasionally, Reported history of juuling and/or vaping. ROS: 14:46 Constitutional: Negative for fever, chills, and weight loss, Eyes: Negative for injury, shabnam pain, redness, and discharge, ENT: Negative for injury, pain, and discharge, Neck: Negative for injury, pain, and swelling, Cardiovascular: Negative for chest pain, palpitations, and edema, Respiratory: Negative for shortness of breath, cough, wheezing, and pleuritic chest pain, Back: Negative for injury and pain, : Negative for injury, bleeding, discharge, and swelling, MS/Extremity: Negative for injury and deformity, Skin: Negative for injury, rash, and discoloration, Neuro: Negative for headache, weakness, numbness, tingling, and seizure, Psych: Negative for depression, anxiety, suicide ideation, homicidal ideation, and hallucinations, Allergy/Immunology: Negative for hives, rash, and allergies, Endocrine: Negative for neck swelling, polydipsia, polyuria, polyphagia, and marked weight changes, Hematologic/Lymphatic: Negative for swollen nodes, abnormal bleeding, and unusual bruising. 14:46 Abdomen/GI: Positive for abdominal pain, nausea and vomiting, nausea, vomiting, and diarrhea, nausea, vomiting, diarrhea, abdominal cramps, abdominal distension. Exam: 14:46 Constitutional: This is a well developed, well nourished patient who is awake, alert, shabnam and in no acute distress. Head/Face: Normocephalic, atraumatic. Eyes: Pupils equal round and reactive to light, extra-ocular motions intact. Lids and lashes normal. Conjunctiva and sclera are non-icteric and not injected. Cornea within normal limits. Periorbital areas with no swelling, redness, or edema. ENT: Nares patent. No nasal discharge, no septal abnormalities noted. Tympanic membranes are normal and external auditory canals are clear. Oropharynx with no redness, swelling, or masses, exudates, or evidence of obstruction, uvula midline. Mucous membranes moist. Neck: Trachea midline, no thyromegaly or masses palpated, and no cervical lymphadenopathy. Supple, full range of motion without nuchal rigidity, or vertebral point tenderness. No Meningismus. Chest/axilla: Normal chest wall appearance and motion. Nontender with no deformity. No lesions are appreciated. Cardiovascular: Regular rate and rhythm with a normal S1 and S2. No gallops, murmurs, or rubs. Normal PMI, no JVD. No pulse deficits. Respiratory: Lungs have equal breath sounds bilaterally, clear to auscultation and percussion. No rales, rhonchi or wheezes noted. No increased work of breathing, no retractions or nasal flaring. Abdomen/GI: Soft, non-tender, with normal bowel sounds. No distension or tympany. No guarding or rebound. No evidence of tenderness throughout. Back: No spinal tenderness. No costovertebral tenderness. Full range of motion. Female : Normal external genitalia. Skin: Warm, dry with normal turgor. Normal color with no rashes, no lesions, and no evidence of cellulitis. 14:46 ECG was reviewed by the Attending Physician. Vital Signs: 12:36 BP 129 / 77; Pulse 103; Resp 17; Temp 98.6; Pulse Ox 100% on R/A; Weight 120.2 kg; nj1 Height 5 ft. 5 in. ; Pain 8/10; 14:27 BP 101 / 58; Pulse 91; Resp 18; Pulse Ox 99% on R/A; ko1 16:42 BP 148 / 88; Pulse 94; Resp 18; Pulse Ox 99% ; ko1 12:36 Body Mass Index 44.10 (120.20 kg, 165.1 cm) nj1 12:36 Pain Scale: Adult nj1 MDM: 12:58 Patient medically screened. [facility] 14:49 Differential diagnosis: Nonspecific abd pain, pancreatitis, viral gastroenteritis, shabnam gastroenteritis, bowel obstruction, cholecystitis, Cholelithiasis, gastritis. Data reviewed: vital signs, nurses notes, lab test result(s), EKG, radiologic studies, plain films. Consideration of Admission/Observation Escalation of care including admission/observation considered. I considered the following discharge prescriptions or medication management in the emergency department Medications were administered in the Emergency Department. See MAR. Test considered but Not performed: Ultrasound ABD USG NOT DONE. 09/17 12:59 Order name: Basic Metabolic Panel; Complete Time: 14:36 [facility] 09/17 12:59 Order name: CBC with Diff; Complete Time: 14:36 [facility] 09/17 12:59 Order name: LFT's; Complete Time: 14:36 [facility] 09/17 12:59 Order name: Magnesium; Complete Time: 14:36 [facility] 09/17 12:59 Order name: NT PRO-BNP; Complete Time: 14:36 [facility] 09/17 12:59 Order name: PT-INR; Complete Time: 14:36 [facility] 09/17 12:59 Order name: Troponin HS; Complete Time: 14:36 [facility] 09/17 12:59 Order name: Lipase; Complete Time: 14:36 [facility] 09/17 12:59 Order name: Urinalysis w/ reflexes; Complete Time: 16:24 [facility] 09/17 12:59 Order name: Lactate w/ 2H reflex if indic.; Complete Time: 14:36 [facility] 09/17 12:59 Order name: Blood Culture Adult (2) [facility] 09/17 12:59 Order name: XRAY Chest (1 view); Complete Time: 14:36 [facility] 09/17 14:50 Order name: CT Abd/Pelvis - PO and IV Contrast [facility] 09/17 12:59 Order name: EKG; Complete Time: 13:00 [facility] 09/17 12:59 Order name: Cardiac monitoring; Complete Time: 13:00 [facility] 09/17 12:59 Order name: EKG - Nurse/Tech; Complete Time: 13:00 [facility] 09/17 12:59 Order name: IV Saline Lock; Complete Time: 13:28 [facility] 09/17 12:59 Order name: Labs collected and sent; Complete Time: 13:28 [facility] 09/17 12:59 Order name: O2 Per Protocol; Complete Time: 13: [facility] 09/17 12:59 Order name: O2 Sat Monitoring; Complete Time: 13: [facility] EC:46 Rate is 84 beats/min. Rhythm is regular. QRS [place] is Normal. [place] interval is normal. QRS shabnam interval is normal. QT interval is normal. No Q waves. T waves are Normal. No ST changes noted. Clinical impression: NSR w/ Non-specific ST/T Changes and No evidence of ischemia. Interpreted by me. Reviewed by me. Administered Medications: 13:32 Drug: NS 0.9% IV 1000 ml Route: IV; Rate: 1 bolus; Site: left antecubital; ko1 13:43 Drug: Ondansetron IVP 4 mg Route: IVP; Site: left antecubital; ko1 14:48 Drug: NS 0.9% IV 1000 ml Route: IV; Rate: 1 bolus; Site: left antecubital; ko1 16:25 Drug: Ondansetron IVP 4 mg Route: IVP; Site: left antecubital; ko1 Disposition Summary: 09/17/22 18:09 Discharge Ordered Location: Home shabnam Problem: new shabnam Symptoms: have improved shabnam Condition: Stable shabnam Diagnosis - Diarrhea, unspecified shabnam - Obesity, unspecified shabnam - Hidradenitis suppurativa shabnam - Edema, unspecified shabnam Followup: shabnam - With: Private Physician - When: 2 - 3 days - Reason: Recheck today's complaints, Continuance of care, Re-evaluation by your physician Followup: shabnam - With: - When: 2 - 3 days - Reason: Recheck today's complaints, Re-evaluation by your physician Discharge Instructions: - Discharge Summary Sheet shabnam - Food Choices to Help Relieve Diarrhea, Adult shabnam - Diarrhea, Adult shabnam - Edema shabnam - Hidradenitis Suppurativa shabnam - Obesity, Adult shabnam - Edema, [place] shabnam - Diarrhea, Adult, Ildu-wg-Qmyc shabnam - Obesity, Adult, Tjem-gm-Eghp shabnam - Peripheral Edema shabnam Forms: - Medication Reconciliation Form shabnam - Thank You Letter shabnam - Antibiotic Education shabnam - Prescription Opioid Use shabnam Prescriptions: - Zofran 4 mg Oral Tablet - take 1 tablet by ORAL route every 12 hours As needed; 25 tablet; Refills: 0, shabnam Product Selection Permitted Signatures: Dispatcher [employer] EDRafita Andres MD MD cha Oliver, Kathy, RN RN ko1 Maye Moise RN RN nj1
--- NOTE | 2022-09-18 07:27 | EKG ---
Test Date: 2022-09-17 Test Time: 13:03:05 Law Reporter: ALBERT MEASUREMENT RESULTS: Intervals: Rate: 84 CO: 172 QRSD: 84 QT: 396 QTc: 467 [place]: P: 63 CO: 172 QRS: 38 T: 69 INTERPRETIVE STATEMENTS: Normal sinus rhythm Normal ECG Compared to ECG 02/26/2019 23:13:24 Sinus bradycardia no longer present Electronically Signed On 09-18-22 07:25:22 CDT by William Brooke
== END 2022-09-17 18:32 | disposition home or self-care (01) ==
LOC: ER 12:09
DX: R19.7 Diarrhea, unspecified (principal); L73.2 Hidradenitis suppurativa; R60.9 Edema, unspecified; E66.9 Obesity, unspecified; Z88.1 Allergy status to other antibiotic agents; Z88.5 Allergy status to narcotic agent; Z88.8 Allergy status to other drugs, medicaments and biological substances; Z91.040 Latex allergy status; Z91.048 Other nonmedicinal substance allergy status
CPT/HCPCS: 93005; 87040 ×2; 85025; 80048; 36415; 83735; 85610; 80076; 83605; 81003; 84484; 83690; 83880; 74177; 71045; 96374; 99285; Q9967; J2405 ×2; J7030

== ENCOUNTER 2023-03-17 10:47 | Emergency (ER) | payer BC, OTHER ==
--- OUTSIDE RECORDS SUMMARY | 2023-03-17 10:58 | XMS REPORT | Continuity of Care Document ---
:1965 Author Organization [facility] t Address [address] [place] [address] [address] [place] [address] Care Team Providers Name Role Phone Nader Gonzalez Primary Care Physician Nader Gonzalez Attending Clinician Unavailable RADIOLOGY Attending Clinician Unavailable Radiology Attending Clinician Unavailable Bridget SAMUELS, Jl Munson Attending Clinician Staci PHAM, Mao Hodges Attending Clinician Dina Lang MD Attending Clinician JUAN MIGUEL ANGEL Attending Clinician Unavailable Juan iMguel Angel DO Attending Clinician Annette ELLIOTT, Zandra Attending Clinician Unavailable Wil PHAM, Tatianna Bhakta Attending Clinician Sharon PHAM, Inocencia Hopkins Attending Clinician Leonor ELLIOTT, Haylie Attending Clinician Unavailable OLGA MAJOR Attending Clinician Unavailable Pedrito PHAM, Olga Keita Attending Clinician Naty PHAM, Aric Gmoez Attending Clinician Shahab PHAM, Susi Attending Clinician Meche PHAM, Varinder Crawley Attending Clinician [phone] Sahil PHAM, Del Hodges Attending Clinician Brooke PHAM, Mal Whitt Attending Clinician [phone] Gurwinder Selby Attending Clinician Beulah PHAM, Anuel Attending Clinician Giuliana PHAM, Monalisa Flores Attending Clinician [phone] Artemio CASTILLO, Alissa Senior Attending Clinician [facility], Jolanta Attending Clinician Unavailable Gabo PHAM, Raul Bahena Attending Clinician Jana PHAM, Nereida Ace Attending Clinician Adama PHAM, Elvia Attending Clinician Po, [facility] Main Attending Clinician Unavailable Kellie PHAM, Ari Attending Clinician ARI HOPKINS Attending Clinician Unavailable EMILE CUEVAS Attending Clinician Unavailable Emile Cuevas MD Attending Clinician ABBEY BELTRAN Attending Clinician Unavailable Abbey Beltran MD Attending Clinician Leti ELLIOTT, Guillermina Hernández Attending Clinician KRISS FARMER Attending Clinician Unavailable Ольга Dunn DO Attending Clinician Loi Nazario DO Attending Clinician Kriss Farmer MD Attending Clinician Ilda Mann MA Attending Clinician Unavailable Doctor Unassigned, [place] Attending Clinician Unavailable SHYANNE DEJESUS Attending Clinician Unavailable Shyanne Meier S Attending Clinician Therapy, [facility] Infusion Attending Clinician Unavailable Geo Viera MD Attending Clinician GEO VIERA Attending Clinician Unavailable Yessenia ELLIOTT, Fabiola Awad Attending Clinician Unavailable Rai ELLIOTT, Cherelle Attending Clinician Unavailable JOHNSON DE LA GARZA Attending Clinician Unavailable Omaghomi SIGNAL INTELLIGENCE/ELECTRONIC WARFARE, Omayemi Attending Clinician Frederic SIGNAL INTELLIGENCE/ELECTRONIC WARFARE, Johnson Attending Clinician Whit Sanders MD Attending Clinician WHIT SANDERS Attending Clinician Unavailable SHAYAN DREW Attending Clinician Unavailable MAL JOHNSON Attending Clinician Unavailable MD MAL JOHNSON Attending Clinician Unavailable Elidia LAMAS, Anjana F Attending Clinician ANJANA KING F Attending Clinician Unavailable Nader Gonzalez Admitting Clinician Unavailable NADER GONZALEZ Admitting Clinician Unavailable JUAN MIGUEL ANGEL Admitting Clinician Unavailable INOCENCIA HERRERA Admitting Clinician Unavailable DINA LANG Admitting Clinician Unavailable OLGA MAJOR Admitting Clinician Unavailable Olga Major MD Admitting Clinician SUSI WADE Admitting Clinician Unavailable NEREIDA BATES Admitting Clinician Unavailable EMILE CUEVAS Admitting Clinician Unavailable ABBEY BELTRAN Admitting Clinician Unavailable KRISS FARMER Admitting Clinician Unavailable Kriss Farmer MD Admitting Clinician MAL JOHNSON Admitting Clinician Unavailable MD MAL JOHNSON Admitting Clinician Unavailable ANJANA KING Admitting Clinician Unavailable Payers Payer Name Policy Type Policy Number Effective Date Expiration Date Donaldo OROZCO II [id number] 2013 2022 00:00:00 00:00:00 [employer] BLUE [id number] 2022 ADVANTAGE O 00:00:00 Problems Condition Condition Condition Status Onset Resolution Last Treating Co mments Source Name Details Category Date Date Treatment Clinician Date Abdominal Abdominal Disease Active Met hodi infection infection - st 00:00: Hospita 00 l Cellulitis Cellulitis Disease Active M ethodi of of 1- st abdominal abdominal 00:00: Hosp anders wall wall 00 l Dehydratio Dehydratio Disease Active 2021-04 M ethodi n n 2-25 st 00:00: Hospita 00 l Acute Acute Disease Active 2021-04 Univers biliary biliary 0-27 ity of pancreatit pancreatit [place] without is without 00 Me dical infection infection Bran ch or or necrosis necrosis Epigastric Epigastric Disease Active 2021-04 U nivers pain pain 0-20 ity of 00:00: [place] [address] Medical Branch Morbid Morbid Disease Active 2021-04 Univers obesity obesity 0-20 [place] of with body [place] mass [place] mass index 00 Me dical of of Branch 40.0-49.9 40.0-49.9 Mechanical Mechanical Disease Active 2019-04 Overview : Methodi complicati complicati 2-[address] on of on of 00:00: g of this Hospita internal internal 00 note l fixation fixation might be device device different such as such as from the nail, nail, original. plate or plate or Added dave dave automatic ally from request for surgery [id number] Chronic Chronic Disease Active Methodi bilateral bilateral [...] Spinal Spinal Disease Active Methodi instabilit instabilit 3-19 st y y 00:00: Hospita 00 l Left ankle Left ankle Disease Active U nivers pain pain 4-13 ity of 00:00: [place] [address] Medical Branch Allergies, Adverse Reactions, Alerts Allergy Allergy Status Severity Reaction(s) Onset Inactive Treating Comm ents Source Name Type Date Date Clinician LATEX DRUG Active Unknown-Cmnt Univ ers INGREDI 2-14 ity of 00:00: [place] [address] Medical Branch Latex Propensi Active Unknown - blisters Uni vers ty to See comments 2-14 ity of adverse 00:00: [place] reaction 00 Medical s Branch Dicyclom Propensi Active Hallucinatio Severe Methodi ine ty to ns 1-[address] adverse 00:00: s and Bad Hospit a reaction 00 dreams l s to per drug patient Meperidi Propensi Active Itching It works Met hodi ne ty to [address] adverse 00:00: but needs Hospit a reaction 00 to have l s to Benadryl drug also. MEPERIDI DRUG Active ITCHING Univers NE INGREDI 06-24 ity of 00:00: [place] 00 Medical Branch Meperidi Propensi Active Itching It works Uni vers ne ty to 3 for her ity of adverse 00:00: but needs [place] reaction 00 to have Medical s Benadryl Branch also. prochlor DA Active [facility] perazine 5-15 [place] 00:00: d 00 [facility] Adhesive Propensi Active blisters Meth rebecca Tape-Madeline ty to 3 st icones adverse 00:00: Hospita reaction 00 l s to drug Prochlor Propensi Active Legs go Metho di perazine ty to 06-[address] Edisylat adverse 00:00: crazy Hospita e reaction 00 l s to drug Prochlor Propensi Active Nausea Univer s perazine ty to and/or 4-13 ity of adverse Vomiting 00:00: [place] reaction 00 Medical s Branch PROCHLOR DRUG Active N/V Univers PERAZINE INGREDI 4-13 ity of 00:00: [place] 00 Medical Branch Social History Social Habit Start Date Stop Date Quantity Comments Source History of tobacco Cigarette Smoker [facility] use Hospital Gender identity [facility]it [facility] of [facility] History SDOH University o f Alcohol Comment [place] [facility] Sexual orientation [facility] Exposure to 2022-06-30 2022-07-10 Not sure University of SARS-CoV-2 (event) 00:00:00 19:04:[address] [facility] History of Social 2022-06-22 2022-06-[address] function 00:00:00 00:00:00 Hospital Alcohol intake 2022-06-20 2022-06-20 Current [facility]ism 00:00:00 00:00:00 non-drinker of Hospital alcohol (finding) Cigarettes smoked 2022-05-17 2022-05-17 [facility] current (pack per 00:00:00 00:00:00 Hospita l day) - Reported Cigarette 2022-05-17 2022-05-17 [facility] pack-years 00:00:00 00:00:00 Hospital Tobacco use and 2022-05-17 2022-05-17 Smokeless tobacco Me thodist exposure 00:00:00 00:00:00 non-user Hospital Tobacco Comment 2022-05-17 2022-05-17 Quit for 3+ yes Meth odist 00:00:00 00:00:00 [facility] reared its ugly head History [facility] 2020-03-16 2020-03-16 1 University o f Alcohol Frequency 00:00:00 00:00:00 [facility] 2020-03-16 2020-03-16 99 University o f Alcohol Std Drinks 00:00:00 00:00:[address] [facility] History [facility] 2020-03-16 2020-03-16 1 University o f Alcohol Binge 00:00:00 00:00:00 [facility] Sex Assigned At [birth year] HAYLEE [place] 00:00:00 00:00:00 [facility] Smoking Status Start Date Stop Date Source Smokes tobacco daily 2022-05-17 00:00:00 [facility] Medications Ordered Filled Start Stop Current Ordering Indication Dosage Frequency Signature Comments Components Source Medication Medication Date Date Medication? Clinician (SIG) Name Name hydrOXYzine 2022- No 25mg 25 mg, Uni vers (ATARAX) 07-11 03-20 Oral, ity of tablet 25 03:45: 03:36 ONCE, 1 [place] mg 00 :00 dose, On [facility] Branch 07/10/22 at 2245, AZEB iopamidol 2022- No [id number] 100mL 100 mL, Univers (ISOVUE -20 03-20 Intravenou ity o f 370-500 mL) 02:45: 02:45 s, ONCE, 1 [place] injection 00 :00 [facility] Branch 07/10/22 at 2145, Routine NaCl 0.9% 2022-0 2022- No 1000mL at 999 Uni vers (NS) bolus 3-20 03-20 mL/hr, ity of infusion 01:45: 03:22 1,000 mL, Khris as 1,000 mL 00 :00 IV Medical Piggyback, Branch ONCE, 1 dose, On 07/10/22 at 2045, STAT hydrOXYzine 2022-0 Yes [id number] 10mg Take 1 Univers 10 mg 3-19 9108 tablet by ity of tablet 00:00: mouth [place] 00 every 6 Medical (six) Branch hours. nystatin 2022-0 Yes [id number] Apply to Univers 100,000 3-19 9108 affected ity of unit/gram 00:00: area(s) 3 Khris as ointment 00 (three) Medical times Branch daily. hydrOXYzine 2022-0 Yes [id number] 10mg Take 1 Univers 10 mg 3-19 9108 tablet by ity of tablet 00:00: mouth [place] 00 every 6 Medical (six) Branch hours. nystatin 2022-0 Yes [id number] Apply to Univers 100,000 3-19 9108 affected ity of unit/gram 00:00: area(s) 3 Khris as ointment 00 (three) Medical times Branch daily. hydrOXYzine 2022-0 Yes [id number] 10mg Take 1 Univers 10 mg 3-19 9108 tablet by ity of tablet 00:00: mouth [place] 00 every 6 Medical (six) Branch hours. nystatin 2022-0 Yes [id number] Apply to Univers 100,000 3-19 9108 affected ity of unit/gram 00:00: area(s) 3 Khris as ointment 00 (three) Medical times Branch daily. fluconazole 2022-0 2023- No [id number] 150mg Take 1 Univers 150 mg 3-19 03-20 9108 tablet by ity of tablet 00:00: 04:59 mouth [place] 00 :00 now for 1 Medical dose. Branch DULoxetine 2022-0 Yes 60mg Q.5D Take 1 Metho di (CYMBALTA) 3-[address] 60 MG 12:49: (60 mg Hospita capsule 03 total) by l mouth 2 (two) times a day. losartan-hy 2022-0 Yes 1{tbl} QD Take 1 Me thodi drochloroth 3-[address] iazide 12:49: mouth Hospita (HYZAAR) 03 daily. l 50-12.5 mg per tablet methocarbam 2022-0 Yes 750mg Q8H Take 1 Met hodi oL 3-[address] (ROBAXIN) 12:49: (750 mg Hospi ta 750 MG 03 total) by l tablet mouth every 8 (eight) hours. ondansetron 2022-0 Yes 4mg Q8H Take 1 Meth rebecca [...] as needed for anxiety. diclofenac 2022-0 Yes Q.25D Apply 2 g M ethodi (VOLTAREN) 3-02 (1 st 1 % gel 12:49: applicatio Hosp anders 03 n total) l topically 4 (four) times a day. acetaminoph 2022-0 Yes 1000mg Q.5D Take 2 Me thodi en 3-[address] (TYLENOL) 12:49: (1,000 mg Hos forrest 500 MG 03 total) by l tablet mouth 2 (two) times a day as needed for mild pain. naproxen 2022-0 Yes 220mg Q.5D Take 1 Method i sodium 3-[address] (Aleve) 220 12:49: (220 mg Hos forrest MG tablet 03 total) by l mouth 2 (two) times a day as needed for mild pain. lidocaine 2022-0 Yes 2{patch Q24H Place 2 Me thodi (LIDODERM) 3-02 } patches on st 5 % 12:49: the skin Hospita 03 daily as l needed for mild pain. Remove & Discard patch within 12 hours or as directed by DULoxetine 2022-0 Yes 60mg Q.5D Take 1 Metho di (CYMBALTA) 3-[address] 60 MG 12:49: (60 mg Hospita capsule 03 total) by l mouth 2 (two) times a day. losartan-hy 2022-0 Yes 1{tbl} QD Take 1 Me thodi drochloroth 3-[address] iazide 12:49: mouth Hospita (HYZAAR) 03 daily. l 50-12.5 mg per tablet methocarbam 2022-0 Yes 750mg Q8H Take 1 Met hodi oL 3-[address] (ROBAXIN) 12:49: (750 mg Hospi ta 750 MG 03 total) by l tablet mouth every 8 (eight) hours. ondansetron 2022-0 Yes 4mg Q8H Take 1 Meth rebecca ODT 3-02 tablet (4 st (ZOFRAN-ODT 12:49: mg total) H ospita ) 4 MG 03 by mouth l disintegrat every 8 ing tablet (eight) hours as needed for nausea or vomiting. sennosides- 2022-0 Yes 2{tbl} QD Take 2 Me thodi [...] 0 Yes QD Infuse Metho di IV -[address] 12:49: venous Hospita 03 catheter l daily. diazePAM 0 Yes 10mg Q24H Take 1 Methodi (VALIUM) 10 -02 tablet (10 st MG tablet 12:49: mg total) Hos forrest 03 by mouth l daily as needed for anxiety. diclofenac 0 Yes 1{appli Q.25D Apply 2 g Methodi (VOLTAREN) 3-02 cation} (1 st 1 % gel 12:49: applicatio Hosp anders 03 n total) l topically 4 (four) times a day. acetaminoph 2022-0 Yes 1000mg Q.5D Take 2 Me thodi en 3-[address] (TYLENOL) 12:49: (1,000 mg Hos forrest 500 MG 03 total) by l tablet mouth 2 (two) times a day as needed for mild pain. naproxen 2022-0 Yes 220mg Q.5D Take 1 Method i [...] 12 hours or as directed by DULoxetine 2022-0 Yes 60mg Q.5D Take 1 Metho di [...] tablet 03 by mouth l nightly. zinc 2022-0 Yes 1{capsu QD Take 1 Methodi sulfate 3-02 le} capsule by st (ZINCATE) 12:49: mouth Hospita 50 mg zinc 03 daily. l (220 mg) capsule Lactobacill 0 Yes 1{capsu QD Take 1 M ethodi us -02 le} capsule by st acidophilus 12:49: mouth [...] Q.25D Apply 2 g M ethodi (VOLTAREN) 02 (1 st 1 % gel 12:49: applicatio [...] 2{patch Q24H Place 2 Me thodi (LIDODERM) 02 } patches on st 5 % 12:49: the skin Hospita 03 daily as l needed for mild pain. Remove & Discard patch within 12 hours or as directed by hydromorPHO 2022-0 2022- No 4mg Q8H Take 1 Met hodi [...] 8 (eight) hours as needed (pain). hydromorPHO 2023-0 2023- No 4mg Q8H Take 1 Met hodi NE 3-02 03-01 tablet (4 st (DILAUDID) 12:49: 00:00 mg total) H ospita 4 MG tablet 03 :00 by mouth l every 8 (eight) hours as needed (pain). cyanocobala 2023-0 Yes 1000ug Q14D Inject Me thodi min, 3-01 1,[address] vitamin 12:49: as Hospita B-12, 1,000 13 directed l mcg/mL kit every 14 (fourteen) days. cholecalcif 2023-0 Yes 2000U QD Take 1 Met hodi gretchen, 3-[address] vitamin D3, 12:49: (2,000 Hosp anders (VITAMIN 13 Units l D3) 2,000 total) by unit mouth capsule daily. capsule cyanocobala 2023-0 Yes 1000ug Q14D Inject Me thodi min, 3- 1,[address] vitamin 12:49: as Hospita B-12, 1,000 13 directed l mcg/mL kit every 14 (fourteen) days. cholecalcif 2023-0 Yes 2000U QD Take 1 Met hodi gretchen, 3-[address] vitamin D3, 12:49: (2,000 Hosp anders (VITAMIN 13 Units l D3) 2,000 total) by unit mouth capsule daily. capsule cyanocobala 2023-0 Yes 1000ug Q14D Inject Me thodi min, 3- 1,[address] vitamin 12:49: as Hospita B-12, 1,000 13 directed l mcg/mL kit every 14 (fourteen) days. cholecalcif 2023-0 Yes 2000U QD Take 1 Met hodi gretchen, 3-[address] vitamin D3, 12:49: (2,000 Hosp anders (VITAMIN 13 Units l D3) 2,000 total) by unit mouth capsule daily. capsule hydromorPHO 2023-0 2023- No [id number] 4mg Q8H Take 1 Me thodi NE 3- 03-05 tablet (4 st (DILAUDID) 00:00: 05:59 mg total) H ospita 4 MG tablet 00 :00 by mouth l every 8 (eight) hours as needed (pain) for up to 3 days .acute pain. Max Daily Amount: 12 mg hydromorPHO 3-0 3- No [id number] 4mg Q8H Take 1 Me borjas NE 06-22-05 tablet (4 st (DILAUDID) 00:00: 05:59 mg total) H ospita 4 MG tablet 00 :00 by mouth l every 8 (eight) hours as needed (pain) for up to 3 days .acute pain. Max Daily Amount: 12 mg hydromorPHO 3-0 2022- No [id number] 4mg Q8H Take 1 Me borjas NE 06-22-05 tablet (4 st (DILAUDID) 00:00: 05:59 mg [...] mouth once for 1 dose. traZODone 3-0 2023- No 50mg QD Take 1 Metho di (DESYREL) 06-16- tablet (50 st 50 MG 15:26: 00:00 mg total) Hospit a tablet 31 :00 by mouth l nightly as needed for sleep. traZODone 2023-0 2023- No 50mg QD Take 1 Metho di (DESYREL) -16 06-23 tablet (50 st 50 MG 15:26: 00:00 mg total) Hospit a tablet 31 :00 by mouth l nightly as needed for sleep. traZODone 2023-0 2023- No 50mg QD Take 1 Metho di (DESYREL) 06-16- tablet (50 st 50 MG 15:26: 00:00 mg total) Hospit a tablet 31 :00 by mouth l nightly as needed for sleep. simvastatin 2022- No 40mg QD Take 1 Met hodi (ZOCOR) 40 -16 06- tablet (40 st mg tablet 15:25: 00:00 mg total) Ho spita 35 :00 by mouth l daily. simvastatin 2022- No 40mg QD Take 1 Met hodi (ZOCOR) 40 -16 06- tablet (40 st mg tablet 15:25: 00:00 mg total) Ho spita 35 :00 by mouth l daily. simvastatin 2022- No 40mg QD Take 1 Met hodi (ZOCOR) 40 06-16- tablet (40 st mg tablet 15:25: 00:00 mg total) Ho spita 35 :00 by mouth l daily. adalimumab 2022- No 80mg Q14D Inject 80 M ethodi (Humira,CF, 2- 02-[address] Pen) 80 15:22: 00:00 the skin Hospi ta mg/0.8 mL 45 :00 every 14 l pen (fourteen) injector days. kit adalimumab 2022- No 80mg Q14D Inject 80 M ethodi (Humira,CF, 2- 02-[address] Pen) 80 15:22: 00:00 the skin Hospi ta mg/0.8 mL 45 :00 every 14 l pen (fourteen) injector days. kit adalimumab 2022-2022- No 80mg Q14D Inject 80 M ethodi (Humira,CF, 2- 02-[address] Pen) 80 15:22: 00:00 the skin Hospi ta mg/0.8 mL 45 :00 every 14 l pen (fourteen) injector days. kit iopamidol 2022- No [id number] 79mL 79 mL, U nivers (ISOVUE 2-15 02-15 Intravenou ity o f 370-500 mL) 23:45: 22:59 s, ONCE, 1 [place] injection 00 :00 dose, On Medica l 79 mL Wed Branch 06/08/22 at 1745, Routine bupivacaine 2022- No PRN, [facility] rs -epinephrin 06-07 Starting ity of e-pf 20:11: 20:27 on Mon (SENSORCAIN 00 :34 06/07/22 at Tn dical E 1411, Branch W/EPINEPHRI Until Mon NE) 0.5 06/07/22 at %-1:200,000 1427, injection Routine, Intra-op lactated 2022- No 1000mL at 42 [facility] rs ringers IV 06-07 02-14 mL/hr, ity of infusion 18:15: 18:30 1,000 mL, Khris as 1,000 mL 00 :00 IV Medical Infusion, Branch ONCE, 1 dose, On Mon06/07/22 at 1215, Routine, DSU Pre-op lactated 2022- No 1000mL at 42 [facility] rs ringers IV 06-07 02-14 mL/hr, ity of infusion 18:15: 18:30 1,000 mL, Khris as 1,000 mL 00 :00 IV Medical Infusion, Branch ONCE, 1 dose, On Mon06/07/22 at 1215, Routine, DSU Pre-op Cholecalcif Yes 2000U Take 2,000 Univers gretchen, 2-14 Units by ity of Vitamin D3, 15:12: [place] 50 mcg 18 Medical (2,000 Branch unit) capsule SIMVASTATIN Yes Take by Uni vers ORAL 2-14 mouth. ity of 15:12: [address] Branch losartan 0 Yes Take by Univer s potassium 2-14 mouth. ity of (LOSARTAN 15:12: [place] ORAL) Medical Branch Cholecalcif Yes 2000U Take 2,000 Univers gretchen, 2-14 Units by ity of Vitamin D3, 15:12: mouth. [place] 50 mcg 18 Medical (2,000 Branch unit) capsule SIMVASTATIN 0 Yes Take by Uni vers ORAL 2-14 mouth. ity of 15:12: [address] losartan Yes Take by Univer s potassium 2-14 mouth. ity of (LOSARTAN 15:12: [place] ORAL) 18 Medical Branch Cholecalcif 2022-0 Yes 2000U Take 2,000 Univers gretchen, 2-14 Units by ity of Vitamin D3, 15:12: mouth. [place] 50 mcg 18 Medical (2,000 Branch unit) capsule SIMVASTATIN 2022-0 Yes Take by Uni vers ORAL 2-14 mouth. ity of 15:12: [address] losartan 2022-0 Yes Take by Univer s potassium 2-14 mouth. ity of (LOSARTAN 15:12: [place] ORAL) [address] [place] [address] Branch Cholecalcif 2022-0 Yes 2000U Take 2,000 Univers gretchen, 2-14 Units by ity of Vitamin D3, 15:12: mouth. [place] 50 mcg 18 Medical (2,000 Branch unit) capsule SIMVASTATIN 2022-0 Yes Take by Uni vers ORAL 2-14 mouth. ity of 15:12: [address] losartan 2022-0 Yes Take by Univer s potassium 2-14 mouth. ity of (LOSARTAN 15:12: [place] ORAL) [address] [place] [address] Branch Cholecalcif 0 Yes 2000U Take 2,000 Univers gretchen, 2-14 Units by ity of Vitamin D3, 15:12: mouth. [place] 50 mcg 18 Medical (2,000 Branch unit) capsule SIMVASTATIN 2022-0 Yes Take by Uni vers ORAL 2-14 mouth. ity of 15:12: [address] losartan 2022-0 Yes Take by Univer s potassium 2-14 mouth. ity of (LOSARTAN 15:12: [place] ORAL) [address] [place] [address] Cholecalcif 0 Yes 2000U Take 2,000 Univers gretchen, 2-14 Units by ity of Vitamin D3, 15:12: mouth. [place] 50 mcg 18 Medical (2,000 Branch unit) capsule SIMVASTATIN 2022-0 Yes Take by Uni vers ORAL 2-14 mouth. ity of 15:12: [address] losartan 2022-0 Yes Take by Univer s potassium 2-14 mouth. ity of (LOSARTAN 15:12: [place] ORAL) [address] [place] [address] Branch fluconazole 3-0 3- No 100mg QD Take 1 Me thodi (Diflucan) 2-03 02-[address] 100 MG 00:00: 05:59 (100 mg Hospita tablet 00 :00 total) by l mouth daily for 3 days. fluconazole 2022- No 100mg QD Take 1 Me thodi (Diflucan) 05-27- tablet st 100 MG 00:00: 05:59 (100 mg Hospita tablet 00 :00 total) by l mouth daily for 3 days. fluconazole 2022- No 100mg QD Take 1 Me thodi (Diflucan) 05-27- tablet st 100 MG 00:00: 05:59 (100 mg Hospita tablet 00 :00 total) by l mouth daily for 3 days. losartan-hy 2022- No 1{tbl} QD Take 1 M ethodi drochloroth 05-[address] iazide 07:31: 00:00 mouth Hospita (HYZAAR) 17 :00 daily. l 50-12.5 mg per tablet losartan-hy 2022-2022- No 1{tbl} QD Take 1 M ethodi [...] hours for 30 days. ondansetron 2022- No [id number] 4mg Q8H Take 1 Methodi ODT 05-26 [...] hours for 30 days. hydromorPHO 2022- No [id number] 8mg Q.25D Take 1 M ethodi NE [...] times a day for 30 days. vancomycin 2022-2022- No 2000mg Q12H Infuse Me thodi 2,000 [...] mg) 30 days. capsule ondansetron 2022- No [id number] 4mg Q8H Take 1 Methodi ODT 05-26 [...] hours for 30 days. hydromorPHO 2022- [place] [id number] 8mg Q.25D Take 1 M ethodi NE [...] mg) 30 days. capsule ondansetron 2022- No [id number] 4mg Q8H Take 1 Methodi ODT 05-26 [...] hours for 30 days. hydromorPHO 2022- [place] [id number] 8mg Q.25D Take 1 M ethodi NE [...] 12 (twelve) hours for 30 days. zinc No 1{capsu QD Take 1 Methodi sulfate 05-26 le} capsule by st (ZINCATE) 00:00: 00:00 mouth Hospit a 50 mg zinc 00 :00 daily for l (220 mg) 30 days. capsule losartan-hy 2021-04 No 1{tbl} QD Take 1 M ethodi drochloroth 06-20 12-[address] iazide 17:20: 00:00 mouth Hospita (HYZAAR) 03 :00 daily. l 50-12.5 mg per tablet losartan 2021-04- No QD Take by Metho di (COZAAR) 25 - 12-[address] MG tablet 17:20: 00:00 daily. Hospi ta 03 :00 Patient l unsure of dose losartan-hy 2021-04- No 1{tbl} QD Take 1 M ethodi drochloroth - 12-[address] iazide 17:20: 00:00 mouth Hospita (HYZAAR) 03 :00 daily. l 50-12.5 mg per tablet losartan 2021-04- No QD Take by Metho di (COZAAR) 25 2-27 12-[address] MG tablet 17:20: 00:00 daily. Hospi ta 03 :00 Patient l unsure of dose losartan-hy 2021-04 1{tbl} QD Take 1 M ethodi drochloroth 06-20-[address] iazide 17:20: 00:00 mouth Hospita (HYZAAR) 03 :00 daily. l 50-12.5 mg per tablet losartan 2021-04 No QD Take by Metho di (COZAAR) 25 06-20 12-[address] MG tablet 17:20: 00:00 daily. Hospi ta 03 :00 Patient l unsure of dose famotidine 2021-04 No [id number] 20mg Q.5D Take 1 Methodi (PEPCID) 20 [...] tablet (six) hours for 30 days. polyethylen 2021-04 17g QD Take 17 g Methodi e glycol 06-[address] (MIRALAX) 00:00: 00:00 daily for Ho spita 17 gram 00 :00 30 days. l packet sennosides- 2021-04 No 1{tbl} QD Take 1 M ethodi docusate 06-[address] sodium 00:00: 00:00 mouth Hospita (SENOKOT-S) 00 :00 nightly l 8.6-50 mg for 30 per tablet days. ondansetron 2021-04- No [id number] 4mg Q8H Take 1 Methodi ODT 06-19 tablet (4 st (ZOFRAN-ODT 00:00: 00:00 mg total) Hospita ) 4 MG 00 :00 by mouth l disintegrat every 8 ing tablet (eight) hours as needed for nausea or vomiting. famotidine 2021-04- No [id number] 20mg Q.5D Take 1 Methodi (PEPCID) 20 [...] tablet (six) hours for 30 days. polyethylen 2021-04 No 17g QD Take 17 g Methodi e glycol 06-[address] (MIRALAX) 00:00: 00:00 daily for [facility] 17 gram 00 :00 30 days. l packet sennosides- 2021-04 No 1{tbl} QD Take 1 M ethodi docusate 06-[address] sodium 00:00: 00:00 mouth [facility] (SENOKOT-S) 00 :00 nightly l 8.6-50 mg for 30 per tablet days. ondansetron 2021-04 No [id number] 4mg Q8H Take 1 [facility] ODT 06-19 tablet (4 st (ZOFRAN-ODT 00:00: 00:00 mg total) Hospita ) 4 MG 00 :00 by mouth l disintegrat every 8 ing tablet (eight) hours as needed for nausea or vomiting. famotidine 2021-04 No [id number] 20mg Q.5D Take 1 Methodi (PEPCID) 20 [...] tablet (six) hours for 30 days. polyethylen 2021-04 No 17g QD Take 17 g Methodi e glycol 06-[address] (MIRALAX) 00:00: 00:00 daily for [facility] 17 gram 00 :00 30 days. l packet sennosides- 2021-04- No 1{tbl} QD Take 1 M ethodi docusate 06-[address] sodium 00:00: 00:00 mouth [facility] (SENOKOT-S) 00 :00 nightly l 8.6-50 mg for 30 per tablet days. ondansetron 2021-04- No [id number] 4mg Q8H Take 1 Methodi ODT 06-19 tablet (4 st (ZOFRAN-ODT 00:00: 00:00 mg total) Hospita ) 4 MG 00 :00 by mouth l disintegrat every 8 ing tablet (eight) hours as needed for nausea or vomiting. dicyclomine 2021-04 No 20mg Q.25D Take 2 [facility] (BENTYL) 10 -19 05-[address] MG capsule 00:00: 00:00 (20 mg Hosp anders 00 :00 total) by l mouth 4 (four) times a day for 30 days. dicyclomine 2021-04- No 20mg Q.25D Take 2 [facility] (BENTYL) 10 -19 05-[address] MG capsule 00:00: 00:00 (20 mg [facility]osp anders 00 :00 total) by l mouth 4 (four) times a day for 30 days. dicyclomine 2021-04- No 20mg Q.25D Take 2 [facility] (BENTYL) 10 -19 05-[address] MG capsule 00:00: 00:00 (20 [...] 5mg Q6H Infuse 1 M ethodi regina -26 01-06 mL ([address] (REGLAN) 5 [...] 00 :00 dose, On Medi sasha mg 04/05/22 at 2215, AZEB morpHINE (4 2021-04- No 4mg 4 mg, Slow Univers mg/mL) 06-07 IV Push, ity of injection 4 04:15: 05:56 ONCE, 1 [place] 00 :00 dose, On Medical 04/05/22 at 2215, STAT tc 2021-04- No [id number] 1.1mCi 1.1 [facility] 99m-sulfur 2-05 12-05 millicurie it y of colloid 14:45: 14:37 , Oral, [place] oral 00 :00 ONCE, 1 Medical solution dose, On Branch 1.1 Mon millicurie 03/28/22 at 0845, Routine lactulose 2021-04 Yes [id number] 30mL Take 30 mL Univers 10 gram/15 1-11 by mouth 3 ity of mL oral 00:00: (three) [place] solution 00 times Medical daily as Branch needed for Constipati on or For bowel movement. lactulose 2021-04 Yes [id number] 30mL Take 30 mL Univers 10 gram/15 1-11 by mouth 3 ity of mL oral 00:00: (three) [place] solution 00 times Medical daily as Branch needed for Constipati on or For bowel movement. lactulose 2021-04 Yes [id number] 30mL Take 30 mL Univers 10 gram/15 1-11 by mouth 3 ity of mL oral 00:00: (three) [place] solution 00 times Medical daily as Branch needed for Constipati on or For bowel movement. lactulose 2021-04 Yes [id number] 30mL Take 30 mL Univers 10 gram/15 1-11 by mouth 3 ity of mL oral 00:00: (three) [place] solution 00 times Medical daily as Branch needed for Constipati on or For bowel movement. lactulose 2021-04 Yes [id number] 30mL Take 30 mL Univers 10 gram/15 1-11 by mouth 3 ity of mL oral 00:00: (three) [place] solution 00 times Medical daily as Branch needed for Constipati on or For bowel movement. lactulose 2021-04 Yes [id number] 30mL Take 30 mL Univers 10 gram/15 1-11 by mouth 3 ity of mL oral 00:00: (three) [place] solution 00 times Medical daily as Branch needed for Constipati on or For bowel movement. lactulose 2021-04 Yes [id number] 30mL Take 30 mL Univers 10 gram/15 1-11 by mouth 3 ity of mL oral 00:00: (three) [place] solution 00 times Medical daily as Branch needed for Constipati on or For bowel movement. lactulose 2021-04 Yes [id number] 30mL Take 30 mL Univers 10 gram/15 1-11 by mouth 3 ity of mL oral 00:00: (three) [place] solution 00 times Medical daily as Branch needed for Constipati on or For bowel movement. lactulose 2021-04 Yes [id number] 30mL Take 30 mL Univers 10 gram/15 1-11 by mouth 3 ity of mL oral 00:00: (three) [place] solution 00 times Medical daily as Branch needed for Constipati on or For bowel movement. lactulose 2021-04 Yes [id number] 30mL Take 30 mL Univers 10 gram/15 1-11 by mouth 3 ity of mL oral 00:00: (three) [place] solution 00 times Medical daily as Branch needed for Constipati on or For bowel movement. lactulose 2021-04 Yes [id number] 30mL Take 30 mL Univers 10 gram/15 1-11 by mouth 3 ity of mL oral 00:00: (three) [place] solution 00 times Medical daily as Branch needed for Constipati on or For bowel movement. lactulose 2021-04 Yes [id number] 30mL Take 30 mL Univers 10 gram/15 1-11 by mouth 3 ity of mL oral 00:00: (three) [place] solution 00 times Medical daily as Branch needed for Constipati on or For bowel movement. hydrocortis 2021-04- No [id number] 25mg Insert 1 Univers one 05-04 11-19 [...] vers ORAL 0-30 mouth. ity of 17:01: [place] [address] Medical Branch losartan 2021-04 Yes Take by Univer s potassium 0-30 mouth. ity of (LOSARTAN 17:01: [place] ORAL) Medical Branch Cholecalcif 2021-04 Yes 2000U Take 2,000 Univers gretchen, 0-30 Units by ity of Vitamin D3, 17:01: [place]. [place] 50 mcg 06 Medical (2,000 Branch unit) capsule SIMVASTATIN 2021-04 Yes Take by Uni vers ORAL 0-30 mouth. ity of 17:01: [address] Branch losartan 2021-04 Yes Take by Univer s potassium 0-30 mouth. ity of (LOSARTAN 17:01: [place] ORAL) Medical Branch Cholecalcif 2021-04 Yes 2000U Take 2,000 Univers gretchen, 0-30 Units by ity of Vitamin D3, 17:01: [place]. [place] 50 mcg 06 Medical (2,000 Branch unit) capsule SIMVASTATIN 2021-04 Yes Take by Uni vers ORAL 0-30 mouth. ity of 17:01: [address] Branch losartan 2021-04 Yes Take by Univer s potassium 0-30 mouth. ity of (LOSARTAN 17:01: [place] ORAL) [address] [place] [address] Branch Cholecalcif 2021-04 Yes 2000U Take 2,000 Univers gretchen, 0-30 Units by ity of Vitamin D3, 17:01: [place]. [place] 50 mcg 06 Medical (2,000 Branch unit) capsule SIMVASTATIN 2021-04 Yes Take by Uni vers ORAL 0-30 mouth. ity of 17:01: [address] losartan 2021-04 Yes Take by Univer s potassium 0-30 mouth. ity of (LOSARTAN 17:01: [place] ORAL) Medical Branch Cholecalcif 2021-04 Yes 2000U Take 2,000 Univers gretchen, 0-30 Units by ity of Vitamin D3, 17:01: [place]. [place] 50 mcg 06 Medical (2,000 Branch unit) capsule SIMVASTATIN 2021-04 Yes Take by Uni vers ORAL 0-30 mouth. ity of 17:01: [address] losartan 2021-04 Yes Take by Univer [...] 51 :00 Medical Branch sennosides- 2021-04 Yes [id number] 1{tbl} Take 1 Univers docusate 0-30 tablet by ity of sodium 00:00: mouth in [place] 8.6-50 mg 00 the Medical per tablet morning Branch and 1 tablet in the evening. ondansetron 2021-04 Yes [id number] 4mg Take 1 Univers 4 mg tablet [...] Indication s: acute pain sennosides- 2021-04 Yes [id number] 1{tbl} Take 1 Univers docusate 0-30 tablet by ity of sodium 00:00: mouth in [place] 8.6-50 mg 00 the Medical per tablet morning Branch and 1 tablet in the evening. ondansetron 2021-04 Yes [id number] 4mg Take 1 Univers 4 mg tablet [...] Indication s: acute pain sennosides- 2021-04 Yes [id number] 1{tbl} Take 1 Univers docusate 0-30 tablet by ity of sodium 00:00: mouth in [place] 8.6-50 mg 00 the Medical per tablet morning Branch and 1 tablet in the evening. ondansetron 2021-04 Yes [id number] 4mg Take 1 Univers 4 mg tablet [...] Indication s: acute pain sennosides- 2021-04 Yes [id number] 1{tbl} Take 1 Univers docusate 0-30 tablet by ity of sodium 00:00: mouth in [place] 8.6-50 mg 00 the Medical per tablet morning Branch and 1 tablet in the evening. ondansetron 2021-04 Yes [id number] 4mg Take 1 Univers 4 mg tablet [...] Indication s: acute pain sennosides- 2021-04 Yes [id number] 1{tbl} Take 1 Univers docusate 0-30 tablet by ity of sodium 00:00: mouth in [place] 8.6-50 mg 00 the Medical per tablet morning Branch and 1 tablet in the evening. ondansetron 2021-04 Yes [id number] 4mg Take 1 Univers 4 mg tablet [...] Indication s: acute pain sennosides- 2021-04 Yes [id number] 1{tbl} Take 1 Univers docusate 0-30 tablet by ity of sodium 00:00: mouth in [place] 8.6-50 mg 00 the Medical per tablet morning Branch and 1 tablet in the evening. ondansetron 2021-04 Yes [id number] 4mg Take 1 Univers 4 mg tablet [...] Indication s: acute pain sennosides- 2021-04 Yes [id number] 1{tbl} Take 1 Univers docusate 0-30 tablet by ity of sodium 00:00: mouth in [place] 8.6-50 mg 00 the Medical per tablet morning Branch and 1 tablet in the evening. ondansetron 2021-04 Yes [id number] 4mg Take 1 Univers 4 mg tablet [...] Indication s: acute pain sennosides- 2021-04 Yes [id number] 1{tbl} Take 1 Univers docusate 0-30 tablet by ity of sodium 00:00: mouth in [place] 8.6-50 mg 00 the Medical per tablet morning Branch and 1 tablet in the evening. ondansetron 2021-04 Yes [id number] 4mg Take 1 Univers 4 mg tablet [...] Indication s: acute pain sennosides- 2021-04 Yes [id number] 1{tbl} Take 1 Univers docusate 0-30 tablet by ity of sodium 00:00: mouth in [place] 8.6-50 mg 00 the Medical per tablet morning Branch and 1 tablet in the evening. ondansetron 2021-04 Yes [id number] 4mg Take 1 Univers 4 mg tablet [...] Indication s: acute pain sennosides- 2021-04 Yes [id number] 1{tbl} Take 1 Univers docusate 0-30 tablet by ity of sodium 00:00: mouth in [place] 8.6-50 mg 00 the Medical per tablet morning Branch and 1 tablet in the evening. ondansetron 2021-04 Yes [id number] 4mg Take 1 Univers 4 mg tablet [...] Indication s: acute pain sennosides- 2021-04 Yes [id number] 1{tbl} Take 1 Univers docusate 0-30 tablet by ity of sodium 00:00: mouth in [place] 8.6-50 mg 00 the Medical per tablet morning Branch and 1 tablet in the evening. ondansetron 2021-04 Yes [id number] 4mg Take 1 Univers 4 mg tablet [...] Indication s: acute pain sennosides- 2021-04 Yes [id number] 1{tbl} Take 1 Univers docusate 0-30 tablet by ity of sodium 00:00: mouth in [place] 8.6-50 mg 00 the Medical per tablet morning Branch and 1 tablet in the evening. ondansetron 2021-04 Yes [id number] 4mg Take 1 Univers 4 mg tablet [...] Indication s: acute pain sennosides- 2021-04 Yes [id number] 1{tbl} Take 1 Univers docusate 0-30 tablet by ity of sodium 00:00: mouth in [place] 8.6-50 mg 00 the Medical per tablet morning Branch and 1 tablet in the evening. ondansetron 2021-04 Yes [id number] 4mg Take 1 Univers 4 mg tablet [...] Indication s: acute pain sennosides- 2021-04 Yes [id number] 1{tbl} Take 1 Univers docusate 0-30 tablet by ity of sodium 00:00: mouth in [place] 8.6-50 mg 00 the Medical per tablet morning Branch and 1 tablet in the evening. ondansetron 2021-04 Yes [id number] 4mg Take 1 Univers 4 mg tablet [...] No 4mg 4 mg, Slow Univers (ZOFRAN 02-17 IV Push, ity of (PF)) 22:42: 22:43 PRN, 1 [place] injection 4 51 :00 dose, Medical mg Starting Branch on [place] 02/17/22 at 1742, Until [place] 02/17/22 at 1743, Routine, Nausea and Vomiting (N/V), PACU bupivacaine 2021-04- No PRN, Unive rs -epinephrin 02-17 Starting ity of e-pf 21:45: 22:00 on [place] [facility] (SENSORCAIN 00 :25 02/17/22 Medi sasha E at 1645, Branch W/EPINEPHRI Until [facility] NE) 0.25 02/17/22 %-1:200,000 at 1700, injection Routine, Intra-op sodium 2021-04- No PRN, Univers chloride 02-17 Starting ity of 0.9 % 20:34: 22:00 on [facility] irrigation 00 :25 02/17/22 Medic al solution at 1534, Branch Until [facility] 02/17/22 at 1700, Intra-op SIMVASTATIN 2021-04 Yes Take by Uni vers ORAL 0-27 mouth. ity of 19:37: [place] [address] [place] [address] losartan 2021-04 Yes Take by Univer s potassium 0-27 mouth. ity of (LOSARTAN 19:37: [place] ORAL) 04 [facility] lactated 2021-04 Yes 1000mL at 50 [...] mg 00 First dose Medical on Mon [place] 02/14/22 at 0900, Until Discontinu ed, Routine losartan 2021-04 Yes 25mg 25 mg, Univers (COZAAR) 0-24 Oral, ity of tablet 25 14:00: DAILY, [place] mg 00 First dose Medical on [facility] 02/14/22 at 0900, Until Discontinu ed, Routine polyethylen 2021-04 Yes 17g 17 g, Unive rs e glycol 0-23 Oral, ity of 3350 powder 14:00: DAILY, [place] 17 g 00 First dose Medical on [facility] 02/13/22 at 0900, Until Discontinu ed, Routine polyethylen 2021-04 Yes 17g 17 g, Unive rs e glycol 0-23 Oral, ity of 3350 powder 14:00: DAILY, [place] 17 g 00 First dose Medical on [facility] 02/13/22 at 0900, Until Discontinu ed, Routine morpHINE (2021-04 Yes 2mg 2 mg, Slow Univers mg/mL) 0-23 IV Push, ity of injection 2 04:15: Q4HPRN, [place] mg 03 Starting Medical on [facility] 02/12/22 at 2315, Until Discontinu ed, Routine, Pain (scale 7-10) morpHINE (2021-04 Yes 2mg 2 mg, Slow Univers mg/mL) 0-23 IV Push, ity of injection 2 04:15: Q4HPRN, [place] mg 03 Starting Medical on [facility] 02/12/22 at 2315, Until Discontinu ed, Routine, [...] 8.6-50 mg 02/12/22 Branch per tablet at 1999, 1 tablet Until Discontinu ed, Routine Sliding 2021-04 Yes Subcutaneo Univ ers Scale 0-22 us, TID ity of Insulin - 17:00: MEALS+HS, [place] as Lispro 00 First dose Medical (HumaLOG) + on [facility] Fsbg 02/12/22 Testing at 1200, Until Discontinu ed, Routine Sliding 2021-04- No Subcutaneo Uni vers Scale 0-22 10-28 us, TID ity of Insulin - 17:00: 23:42 MEALS+HS, [place] Lispro 00 :58 First dose Medical (HumaLOG) + on [facility] Fsbg 02/12/22 Testing at 1200, Until Discontinu ed, Routine lactated 2021-04- No 1000mL at 100 [facility] ers ringers IV 0-22 10-26 mL/hr, ity of infusion 17:00: 22:17 1,000 mL, [place] as 1,000 mL 00 :05 IV Medical Infusion, Branch CONTINUOUS , Starting on 02/12/22 at 1200, Until 02/16/22 at 1717, Routine dextrose 2021-04 Yes 250mL 250 mL, IV Un marsha 10% (D10W) 0-22 Infusion, ity of bolus 15:27: PRN - SEE [place] infusion 13 INSTRUCTIO Medic al 250 mL [...] ity of bolus 15:27: PRN - SEE [place] infusion 13 INSTRUCTIO Medic al 250 mL [...] IV Push, ity of (PF)) 20:09: Q6HPRN, [place] injection 4 04 Nausea and Me dical [...] 40 mg 00 First dose Medical on Mon02/11/22 at 0900, Until Discontinu ed, Routine enoxaparin 2021-04 Yes 40mg 40 mg, Unive rs (LOVENOX) 0-21 Subcutaneo ity of injection 14:00: [place], DAILY, [place] 40 mg 00 First dose Medical on Mon Branch 02/11/22 at 0900, Until Discontinu ed, Routine lactated 2021-04- No 1000mL at 150 Univ ers ringers IV 0-21 10-22 mL/hr, ity of infusion 02:00: 16:58 1,000 mL, [place] as 1,000 mL 00 :00 IV Medical Infusion, Branch CONTINUOUS , Starting on [place] 02/10/22 at 2100, Until 02/12/22 at 1158, Routine DULoxetine 2021-04 Yes 60mg 60 mg, Unive rs (CYMBALTA) 0-21 Oral, BID, ity of capsule 60 01:00: First dose [place] mg 00 on [facility] 02/10/22 Branch at 2000, Until Discontinu ed, Routine DULoxetine 2021-04 Yes 60mg 60 mg, Unive rs (CYMBALTA) 0-21 Oral, BID, ity of capsule 60 01:00: First dose [place] mg 00 on [facility] 02/10/22 Branch at 2000, Until Discontinu ed, Routine hydralAZINE 2021-04 Yes 5mg 5 mg, Slow Univers (APRESOLINE 0-21 IV Push, ity of ) injection 00:49: Q4HPRN, [place] 5 mg 10 Starting Medical on [facility] Branch 02/10/22 at 1949, Until Discontinu ed, Routine, DBP=>10 0; SBP=>160, For SBP > 160 hydralAZINE 2021-04 Yes 5mg 5 mg, Slow Univers (APRESOLINE 0-21 IV Push, ity of ) injection 00:49: Q4HPRN, [place] 5 mg 10 Starting Medical on [facility] Branch 02/10/22 at 1949, Until Discontinu ed, Routine, DBP=>10 0; SBP=>160, For SBP > 160 morpHINE (4 2021-04- No 4mg 4 mg, Slow Univers mg/mL) 0 10- IV Push, ity of injection 4 23:04: 23:03 Q4HPRN, [place] mg 36 :36 Starting Medical on [facility] Branch 02/10/22 at 1804, Until 02/11/22 at 1803, Routine, Pain (scale 7-10) HYDROcodone 2021-04- No 1{tbl} 1 tablet, Univers -acetaminop 0-20 -22 Oral, ity of hen (NORCO 23:04: 23:03 Q6HPRN, [place] 5) 5-325 mg 33 :33 Starting Medi sasha tablet 1 on [place] Branch tablet 02/10/22 at 1804, Until 02/12/22 at 1803, Routine, Pain (scale 4-6) acetaminoph 2021-04 Yes 650mg 650 mg, Un marsha en 0-20 Oral, ity of (TYLENOL) 23:04: Q6HPRN, [place] tablet 650 25 Starting Medic al mg on [place] Branch 02/10/22 at 1804, Until Discontinu ed, Routine, Pain (scale 1-3) acetaminoph 2021-04 Yes 650mg 650 mg, Un marsha en 0-20 Oral, ity of (TYLENOL) 23:04: Q6HPRN, [place] tablet 650 25 Starting Medic al mg on [place] Branch 02/10/22 at 1804, Until Discontinu ed, Routine, Pain (scale 1-3) D5W 0.45% 2021-04- No 1000mL at 150 Uni vers NaCl 0-20 10-21 mL/hr, ity of (1/2NS) IV 20:30: 00:49 1,000 mL, [place] infusion 00 :25 IV Medical 1,000 mL Infusion, Branch CONTINUOUS , Starting on [place] 02/10/22 at 1530, Until [place] 02/10/22 at 1949, AZEB FENTanyl PF 2021-04- No 50ug 50 mcg, Un marsha (SUBLIMAZE 0-20 10-20 Slow IV ity o f (PF)) 20:30: 19:38 Push, [place] injection 00 :00 ONCE, 1 Medical 50 mcg dose, On Branch [place] 02/10/22 at 1530, Routine iopamidol 2021-04- No [id number] 70mL 70 mL, U nivers (ISOVUE 0-20 10-20 Intravenou ity o f 370-500 mL) 19:15: 19:15 s, ONCE, 1 [place] injection 00 :00 dose, On Medica l 70 mL [place] Branch 02/10/22 at 1415, Routine famotidine 2022-1 2022- No 20mg 20 mg, Univ ers (PEPCID 0-20 10-20 Slow IV ity of (PF)) 18:45: 17:56 Push, [place] injection 00 :00 ONCE, 1 Medical 20 mg dose, On Branch [facility] 02/10/22 at 1345, Routine diphenhydrA 2021-04 No 50mg 50 mg, Uni vers MINE 0-20 10-20 Slow IV ity of (BENADRYL) 18:15: 18:03 Push, [place] injection 00 :00 ONCE, 1 Medical 50 mg dose, On Branch [facility] 02/10/22 at 1315, STAT NAPROXEN 2021-04 Yes Take by Univer s SODIUM 0-20 mouth. ity of (ALEVE 17:58: [place] ORAL) 58 Medical Branch Cholecalcif 2021-04 Yes 2000U Take 2,000 Univers gretchen, 0-20 Units by ity of Vitamin D3, 17:58: mouth. [place] 50 mcg 58 Medical (2,000 Branch unit) capsule albuterol Yes [id number] 2{puff} Inhale 2 Univers 90 1-06 Puffs ity of mcg/actuati 00:00: every 6 [place] on inhaler 00 (six) Medical hours as Branch needed for Wheezing or Shortness of Breath. albuterol Yes [id number] 2{puff} Inhale 2 Univers 90 1-06 Puffs ity of mcg/actuati 00:00: every 6 [place] on inhaler 00 (six) Medical hours as Branch needed for Wheezing or Shortness of Breath. albuterol Yes [id number] 2{puff} Inhale 2 Univers 90 1-06 Puffs ity of mcg/actuati 00:00: every 6 [place] on inhaler 00 (six) Medical hours as Branch needed for Wheezing or Shortness of Breath. albuterol Yes [id number] 2{puff} Inhale 2 Univers 90 1-06 Puffs ity of mcg/actuati 00:00: every 6 [place] on inhaler 00 (six) Medical hours as Branch needed for Wheezing or Shortness of Breath. albuterol Yes [id number] 2{puff} Inhale 2 Univers 90 1-06 Puffs ity of mcg/actuati 00:00: every 6 [place] on inhaler 00 (six) Medical hours as Branch needed for Wheezing or Shortness of Breath. albuterol Yes [id number] 2{puff} Inhale 2 Univers 90 1-06 Puffs ity of mcg/actuati 00:00: every 6 [place] on inhaler 00 (six) Medical hours as Branch needed for Wheezing or Shortness of Breath. albuterol Yes [id number] 2{puff} Inhale 2 Univers 90 1-06 Puffs ity of mcg/actuati 00:00: every 6 [place] on inhaler 00 (six) Medical hours as Branch needed for Wheezing or Shortness of Breath. albuterol Yes [id number] 2{puff} Inhale 2 Univers 90 1-06 Puffs ity of mcg/actuati 00:00: every 6 [place] on inhaler 00 (six) Medical hours as Branch needed for Wheezing or Shortness of Breath. albuterol Yes [id number] 2{puff} Inhale 2 Univers 90 1-06 Puffs ity of mcg/actuati 00:00: every 6 [place] on inhaler 00 (six) Medical hours as Branch needed for Wheezing or Shortness of Breath. albuterol Yes [id number] 2{puff} Inhale 2 Univers 90 1-06 Puffs ity of mcg/actuati 00:00: every 6 [place] on inhaler 00 (six) Medical hours as Branch needed for Wheezing or Shortness of Breath. albuterol Yes [id number] 2{puff} Inhale 2 Univers 90 1-06 Puffs ity of mcg/actuati 00:00: every 6 [place] on inhaler 00 (six) Medical hours as Branch needed for Wheezing or Shortness of Breath. albuterol Yes [id number] 2{puff} Inhale 2 Univers 90 1-06 Puffs ity of mcg/actuati 00:00: every 6 [place] on inhaler 00 (six) Medical hours as Branch needed for Wheezing or Shortness of Breath. albuterol Yes [id number] 2{puff} Inhale 2 Univers 90 1-06 Puffs ity of mcg/actuati 00:00: every 6 [place] on inhaler 00 (six) Medical hours as Branch needed for Wheezing or Shortness of Breath. albuterol Yes [id number] 2{puff} Inhale 2 Univers 90 1-06 Puffs ity of mcg/actuati 00:00: every 6 [place] on inhaler 00 (six) Medical hours as Branch needed for Wheezing or Shortness of Breath. albuterol Yes [id number] 2{puff} Inhale 2 Univers 90 1-06 Puffs ity of mcg/actuati 00:00: every 6 [place] on inhaler 00 (six) Medical hours as Branch needed for Wheezing or Shortness of Breath. albuterol Yes [id number] 2{puff} Inhale 2 Univers 90 1-06 Puffs ity of mcg/actuati 00:00: every 6 [place] on inhaler 00 (six) Medical hours as Branch needed for Wheezing or Shortness of Breath. albuterol Yes [id number] 2{puff} Inhale 2 Univers 90 1-06 Puffs ity of mcg/actuati 00:00: every 6 [place] on inhaler 00 (six) Medical hours as Branch needed for Wheezing or Shortness of Breath. albuterol Yes [id number] 2{puff} Inhale 2 Univers 90 1-06 Puffs ity of mcg/actuati 00:00: every 6 [place] as on inhaler 00 (six) Medical hours as Branch needed for Wheezing or Shortness of Breath. albuterol Yes [id number] 2{puff} Inhale 2 Univers 90 1-06 Puffs ity of mcg/actuati 00:00: every 6 [place] on inhaler 00 (six) Medical hours as Branch needed for Wheezing or Shortness of Breath. albuterol Yes [id number] 2{puff} Inhale 2 Univers 90 1-06 Puffs ity of mcg/actuati 00:00: every 6 [place] on inhaler 00 (six) Medical hours as Branch needed for Wheezing or Shortness of Breath. albuterol Yes [id number] 2{puff} Inhale 2 Univers 90 1-06 Puffs ity of mcg/actuati 00:00: every 6 [place] on inhaler 00 (six) Medical hours as Branch needed for Wheezing or Shortness of Breath. albuterol Yes [id number] 2{puff} Inhale 2 Univers 90 1-06 Puffs ity of mcg/actuati 00:00: every 6 [place] on inhaler 00 (six) Medical hours as Branch needed for Wheezing or Shortness of Breath. albuterol Yes [id number] 2{puff} Inhale 2 Univers 90 1-06 Puffs ity of mcg/actuati 00:00: every 6 [place] as on inhaler 00 (six) Medical hours as Branch needed for Wheezing or Shortness of Breath. albuterol Yes [id number] 2{puff} Inhale 2 Univers 90 1-06 Puffs ity of mcg/actuati 00:00: every 6 [place] on inhaler 00 (six) Medical hours as Branch needed for Wheezing or Shortness of Breath. bromphenira 2021- No [id number] 5mL Take 5 mL Univers mine-pseudo 04-29 by mouth 4 i ty of ephedrine-D 00:00: 05:59 (four) [place] M (BROMFED 00 :00 times Medical DM) 2-30-10 daily as Bran ch mg/5 mL needed for syrup Cold symptoms for up to 10 days. bromphenira 2021- No [id number] 5mL Take 5 mL Univers mine-pseudo 04-29 by mouth 4 i ty of ephedrine-D 00:00: 05:59 (four) [place] M (BROMFED 00 :00 times Medical DM) 2-30-10 daily as Bran ch mg/5 mL needed for syrup Cold symptoms for up to 10 days. bromphenira 2021- No [id number] 5mL Take 5 mL Univers mine-pseudo 04-29 [...] 1000mL at 42 Unive rs ringers IV 1-23 11-23 mL/hr, ity of infusion 16:00: 16:37 1,000 mL, [place] as 1,000 mL 00 :00 IV Medical Infusion, Branch ONCE, 1 dose, On Mon03/16/21 at 1000, Routine, DSU Pre-op lactated 2020-04- No 1000mL at 42 Unive rs ringers IV 1-23 11-23 mL/hr, ity of infusion 16:00: 16:37 [...] (2,000 Branch unit) capsule triamcinolo 2020-04- No [id number] 40mg Univers ne 04-24 9109 ity of acetonide 20:45: 19:33 [place] (KENALOG) 00 :00 Medical injection Branch 40 mg triamcinolo 2020-04- No [id number] 40mg 40 mg, Univers ne 04-24 9109 Intramuscu ity of acetonide 20:45: 19:33 [place], ONCE, [place] (KENALOG) 00 :00 1 dose, On Medi sasha injection Mon Branch 40 mg 02/22/21 at 1545, Routine gabapentin 2021- No [id number] 600mg [id number] Take 1 Methodi (Neurontin) 11-[id number] 600 mg 00:00: 04:59 3D (600 mg Hospita tablet 00 :00 total) by l mouth 3 (three) times a day. gabapentin 2021- No [id number] 600mg Q.[id number] Take 1 Methodi (Neurontin) 11-[id number] 600 mg 00:00: 04:59 3D (600 mg Hospita tablet 00 :00 total) by l mouth 3 (three) times a day. cyclobenzap 2019-04 Yes [id number] 10mg Take 1 Univers rine 10 mg 2-06 tablet by ity of tablet 00:00: mouth 3 [place] 00 (three) Medical times Branch daily as needed for Muscle Spasms. ibuprofen 2019-04 Yes [id number] 800mg Take 1 [facility] 800 mg 2-06 tablet by ity of tablet 00:00: mouth [place] 00 every 6 Medical (six) Branch hours as needed for Pain (scale 4-6). cyclobenzap 2020-1 Yes [id number] 10mg Take 1 [facility] rine 10 mg 2-06 tablet by ity of tablet 00:00: mouth 3 [place] 00 (three) Medical times Branch daily as needed for Muscle Spasms. ibuprofen 2020-1 Yes [id number] 800mg Take 1 [facility] 800 mg 2-06 tablet by ity of tablet 00:00: mouth [place] 00 every 6 Medical (six) Branch hours as needed for Pain (scale 4-6). cyclobenzap 2020-1 Yes [id number] 10mg Take 1 [facility] rine 10 mg 2-06 tablet by ity of tablet 00:00: mouth 3 [place] 00 (three) Medical times Branch daily as needed for Muscle Spasms. ibuprofen 2020-1 Yes [id number] 800mg Take 1 [facility] 800 mg 2-06 tablet by ity of tablet 00:00: mouth [place] 00 every 6 Medical (six) Branch hours as needed for Pain (scale 4-6). cyclobenzap 2020-1 Yes [id number] 10mg Take 1 [facility] rine 10 mg 2-06 tablet by ity of tablet 00:00: mouth 3 [place] 00 (three) Medical times Branch daily as needed for Muscle Spasms. ibuprofen 2020-1 Yes [id number] 800mg Take 1 [facility] 800 mg 2-06 tablet by ity of tablet 00:00: mouth [place] 00 every 6 Medical (six) Branch hours as needed for Pain (scale 4-6). cyclobenzap 2020-1 Yes [id number] 10mg Take 1 [facility] rine 10 mg 2-06 tablet by ity of tablet 00:00: mouth 3 [place] 00 (three) Medical times Branch daily as needed for Muscle Spasms. ibuprofen 2020-1 Yes [id number] 800mg Take 1 [facility] 800 mg 2-06 tablet by ity of tablet 00:00: mouth [place] 00 every 6 Medical (six) Branch hours as needed for Pain (scale 4-6). cyclobenzap 2020-1 Yes [id number] 10mg Take 1 [facility] rine 10 mg 2-06 tablet by ity of tablet 00:00: mouth 3 [place] 00 (three) Medical times Branch daily as needed for Muscle Spasms. ibuprofen 2020-1 Yes [id number] 800mg Take 1 [facility] 800 mg 2-06 tablet by ity of tablet 00:00: mouth [place] 00 every 6 Medical (six) Branch hours as needed for Pain (scale 4-6). cyclobenzap 2020-1 Yes [id number] 10mg Take 1 [facility] rine 10 mg 2-06 tablet by ity of tablet 00:00: mouth 3 [place] 00 (three) Medical times Branch daily as needed for Muscle Spasms. ibuprofen 2020-1 Yes [id number] 800mg Take 1 [facility] 800 mg 2-06 tablet by ity of tablet 00:00: mouth [place] 00 every 6 Medical (six) Branch hours as needed for Pain (scale 4-6). cyclobenzap 2020-1 Yes [id number] 10mg Take 1 [facility] rine 10 mg 2-06 tablet by ity of tablet 00:00: mouth 3 [place] 00 (three) Medical times Branch daily as needed for Muscle Spasms. ibuprofen 2020-1 Yes [id number] 800mg Take 1 [facility] 800 mg 2-06 tablet by ity of tablet 00:00: mouth [place] 00 every 6 Medical (six) Branch hours as needed for Pain (scale 4-6). cyclobenzap 2020-1 Yes [id number] 10mg Take 1 [facility] rine 10 mg 2-06 tablet by ity of tablet 00:00: mouth 3 [place] 00 (three) Medical times Branch daily as needed for Muscle Spasms. ibuprofen 2020-1 Yes [id number] 800mg Take 1 [facility] 800 mg 2-06 tablet by ity of tablet 00:00: mouth [place] 00 every 6 Medical (six) Branch hours as needed for Pain (scale 4-6). cyclobenzap 2020-1 Yes [id number] 10mg Take 1 [facility] rine 10 mg 2-06 tablet by ity of tablet 00:00: mouth 3 [place] 00 (three) Medical times Branch daily as needed for Muscle Spasms. ibuprofen 2020-1 Yes [id number] 800mg Take 1 [facility] 800 mg 2-06 tablet by ity of tablet 00:00: mouth [place] 00 every 6 Medical (six) Branch hours as needed for Pain (scale 4-6). cyclobenzap 2020-1 Yes [id number] 10mg Take 1 [facility] rine 10 mg 2-06 tablet by ity of tablet 00:00: mouth 3 [place] 00 (three) Medical times Branch daily as needed for Muscle Spasms. ibuprofen 2020-1 Yes [id number] 800mg Take 1 [facility] 800 mg 2-06 tablet by ity of tablet 00:00: mouth [place] 00 every 6 Medical (six) Branch hours as needed for Pain (scale 4-6). cyclobenzap 2019-04 Yes [id number] 10mg Take 1 [facility] rine 10 mg 2-06 tablet by ity of tablet 00:00: mouth 3 [place] 00 (three) Medical times Branch daily as needed for Muscle Spasms. ibuprofen 2019-04 Yes [id number] 800mg Take 1 [facility] 800 mg 2-06 tablet by ity of tablet 00:00: mouth [place] 00 every 6 Medical (six) Branch hours as needed for Pain (scale 4-6). cyclobenzap 2019-04 Yes [id number] 10mg Take 1 [facility] rine 10 mg 2-06 tablet by ity of tablet 00:00: mouth 3 [place] 00 (three) Medical times Branch daily as needed for Muscle Spasms. ibuprofen 2019-04 Yes [id number] 800mg Take 1 [facility] 800 mg 2-06 tablet by ity of tablet 00:00: mouth [place] 00 every 6 Medical (six) Branch hours as needed for Pain (scale 4-6). cyclobenzap 2019-04- No [id number] 10mg Take 1 [facility] rine 10 mg 2-06 10-30 tablet by ity of tablet 00:00: 00:00 mouth 3 [place] 00 :00 (three) Medical times Branch daily as needed for Muscle Spasms. ibuprofen 2019-04- No [id number] 800mg Take 1 [facility] 800 mg 2-06 [...] [facility] capsule [facility] [place] [facility] TAKE 1 CAPSULE BY [...] 2018-04 Yes duloxetine U nivers 60 mg - 60 mg ity of capsule 00:00: [place] [facility] release [facility] TAKE 1 CAPSULE BY MOUTH TWICE DAILY WITH FOOD DULoxetine 2018-04- No 60mg Q.5D Take 1 Meth rebecca [...] 2 (two) times a day. naproxen Yes [id number] 500mg Take 1 U nivers 500 mg 4-28 tablet by ity of tablet 00:00: mouth (two) Medical times Branch daily with meals. naproxen Yes [id number] 500mg Take 1 U nivers 500 mg 4-28 tablet by ity of tablet 00:00: mouth (two) Medical times Branch daily with meals. naproxen Yes [id number] 500mg Take 1 U nivers 500 mg 4-28 tablet by ity of tablet 00:00: mouth (two) Medical times Branch daily with meals. naproxen Yes [id number] 500mg Take 1 U nivers 500 mg 4-28 tablet by ity of tablet 00:00: mouth (two) Medical times Branch daily with meals. naproxen Yes [id number] 500mg Take 1 U nivers 500 mg 4-28 tablet by ity of tablet 00:00: mouth (two) Medical times Branch daily with meals. naproxen 2018- Yes [id number] 500mg Take 1 U nivers 500 mg 4-28 tablet by ity of tablet 00:00: [facility] (two) Medical times Branch daily with meals. naproxen 2018-0 Yes [id number] 500mg Take 1 U nivers 500 mg 4-28 tablet by ity of tablet 00:00: [facility] [place] (two) Medical times Branch daily with meals. naproxen 0 Yes [id number] 500mg Take 1 U nivers 500 mg 4-28 tablet by ity of tablet 00:00: [facility] [place] (two) Medical times Branch daily with meals. naproxen 2018- Yes [id number] 500mg Take 1 U nivers 500 mg 4-28 tablet by ity of tablet 00:00: [facility] [place] (two) Medical times Branch daily with meals. naproxen Yes [id number] 500mg Take 1 U nivers 500 mg 4-28 tablet by ity of tablet 00:00: [facility] [place] (two) Medical times Branch daily with meals. naproxen Yes [id number] 500mg Take 1 U nivers 500 mg 4-28 tablet by ity of tablet 00:00: [facility] [place] (two) Medical times Branch daily with meals. naproxen 0 Yes [id number] 500mg Take 1 U nivers 500 mg 4-28 tablet by ity of tablet 00:00: [facility] [place] (two) Medical times Branch daily with meals. naproxen Yes [id number] 500mg Take 1 U nivers 500 mg 4-28 tablet by ity of tablet 00:00: [facility] [place] (two) Medical times Branch daily with meals. naproxen 2022- No [id number] 500mg Take 1 [facility] 500 mg 4-28 10-30 tablet by ity of tablet 00:00: 00:[address] 00 :00 (two) Medical times Branch daily with meals. traMADOL 2018- Yes [id number] 50mg Take 1 Univers (ULTRAM) 50 1-21 [id number] tablet by i ty of mg tablet 00:00: [facility] every 6 Medical (six) Branch hours as needed for Pain (scale 7-10). traMADOL 0 Yes [id number] 50mg Take 1 Univers (ULTRAM) 50 1-21 [id number] tablet by i ty of mg tablet 00:00: mouth [place] 00 every 6 Medical (six) Branch hours as needed for Pain (scale 7-10). traMADOL 2019-0 Yes [id number] 50mg Take 1 Univers (ULTRAM) 50 1-21 [id number] tablet by i ty of mg tablet 00:00: mouth [place] 00 every 6 Medical (six) Branch hours as needed for Pain (scale 7-10). traMADOL 2019-0 Yes [id number] 50mg Take 1 Univers (ULTRAM) 50 1-21 [id number] tablet by i ty of mg tablet 00:00: mouth [place] 00 every 6 Medical (six) Branch hours as needed for Pain (scale 7-10). traMADOL 2019-0 Yes [id number] 50mg Take 1 Univers (ULTRAM) 50 1-21 [id number] tablet by i ty of mg tablet 00:00: mouth [place] 00 every 6 Medical (six) Branch hours as needed for Pain (scale 7-10). traMADOL 2019-0 Yes [id number] 50mg Take 1 Univers (ULTRAM) 50 1-21 [id number] tablet by i ty of mg tablet 00:00: mouth [place] 00 every 6 Medical (six) Branch hours as needed for Pain (scale 7-10). traMADOL 2019-0 Yes [id number] 50mg Take 1 [facility] (ULTRAM) 50 1-21 [id number] tablet by i ty of mg tablet 00:00: mouth [place] 00 every 6 Medical (six) Branch hours as needed for Pain (scale 7-10). traMADOL 2019-0 Yes [id number] 50mg Take 1 Univers (ULTRAM) 50 1-21 [id number] tablet by i ty of mg tablet 00:00: mouth [place] 00 every 6 Medical (six) Branch hours as needed for Pain (scale 7-10). traMADOL 2019-0 Yes [id number] 50mg Take 1 [facility] (ULTRAM) 50 1-21 [id number] tablet by i ty of mg tablet 00:00: mouth [place] 00 every 6 Medical (six) Branch hours as needed for Pain (scale 7-10). traMADOL 2019-0 Yes [id number] 50mg Take 1 Univers (ULTRAM) 50 1-21 [id number] tablet by i ty of mg tablet 00:00: mouth [place] 00 every 6 Medical (six) Branch hours as needed for Pain (scale 7-10). traMADOL 2019- Yes [id number] 50mg Take 1 Univers (ULTRAM) 50 1-21 [id number] tablet by i ty of mg tablet 00:00: mouth [place] 00 every 6 Medical (six) Branch hours as needed for Pain (scale 7-10). traMADOL 2019- Yes [id number] 50mg Take 1 [facility] (ULTRAM) 50 1-21 [id number] tablet by i ty of mg tablet 00:00: mouth [place] 00 every 6 Medical (six) Branch hours as needed for Pain (scale 7-10). traMADOL 2019- Yes [id number] 50mg Take 1 Univers (ULTRAM) 50 1-21 [id number] tablet by i ty of mg tablet 00:00: mouth [place] 00 every 6 Medical (six) Branch hours as needed for Pain (scale 7-10). traMADOL 2- No [id number] 50mg Take 1 Univers (ULTRAM) 50 1-21 10-30 [id number] tablet by ity of mg tablet 00:00: 00:00 mouth [place] 00 :00 every 6 Medical (six) Branch hours as needed for Pain (scale 7-10). gabapentin 2017- Yes 300mg Take 1 Univ [...] by ity of capsule 00:00: mouth 3 00 (three) Medical times Branch daily. gabapentin 2017-1 [...] mouth (three) Medical times Branch daily. gabapentin 2017- Yes 300mg Take 1 Univ ers 300 mg 2-27 capsule by ity of capsule 00:00: mouth (three) Medical times Branch daily. gabapentin 2017- Yes 300mg Take 1 Univ ers 300 mg 2-27 capsule by ity of capsule 00:00: mouth (three) Medical times Branch daily. gabapentin 2017- [...] capsule by ity of capsule 00:00: mouth () Medical times Branch daily. gabapentin 2017-1 Yes 300mg Take 1 Univ ers 300 mg 2-27 capsule by ity of capsule 00:00: mouth () Medical times Branch daily. gabapentin 2017- Yes 300mg Take 1 Univ ers 300 mg 2-27 capsule by ity of capsule 00:00: mouth () Medical times Branch daily. gabapentin 2017- Yes 300mg Take 1 Univ ers 300 mg 2-27 capsule by ity of capsule 00:00: mouth () Medical times Branch daily. gabapentin 2017-1 Yes 300mg Take 1 Univ ers 300 mg 2-27 capsule by ity of capsule 00:00: mouth () Medical times Branch daily. diazePAM 5 2017-0 Yes 5mg Take 1 Unive rs mg tablet 2-25 tablet by ity o f 00:00: mouth () Medical times Branch daily as needed for [...] as needed for Muscle Spasms. diazePAM 5 2016-0 Yes 5mg Take 1 Unive rs mg [...] as needed for Muscle Spasms. diazePAM 5 2016-0 Yes 5mg Take 1 Unive rs mg [...] tablets CTIONS. Branch follow package directions methylPREDN Yes 84mg Take 21 Uni vers ISolone 1-25 tablets by ity of (MEDROL, 00:00: mouth [place] DAVIS,) 4 mg 00 SEE-INSTRU Med ical tablets CTIONS. Branch follow package directions methylPREDN 2021- No 84mg Take 21 Un marsha ISolone 1-25 10-20 tablets by ity o f (MEDROL, 00:00: 00:00 mouth [place] DAVIS,) 4 mg 00 :00 SEE-INSTRU Med ical tablets CTIONS. Branch follow package directions methylPREDN 2021- No 84mg Take 21 Un marsha ISolone 1-25 10-20 tablets by ity o f (MEDROL, 00:00: 00:00 mouth [place] DAVIS,) 4 mg 00 :00 SEE-INSTRU Med ical tablets CTIONS. Branch follow package directions cyanocobala 2015-04 Yes Univer s min 1,000 2-09 ity [...] 2-09 ity of mcg/mL 00:00: [place] injection Medical Branch cyanocobala 2016-1 Yes Univer s min 1,000 2-09 ity of mcg/mL 00:00: [place] injection 00 Medical Branch cyanocobala 2016-1 Yes Univer s min 1,000 2-09 ity of mcg/mL 00:00: [place] injection 00 Medical Branch cyanocobala 2016-1 Yes Univer s min 1,000 2-09 ity of mcg/mL 00:00: [place] injection Medical Branch cyanocobala 2016- Yes Univer s min 1,000 2-09 ity of mcg/mL 00:00: [place] injection Medical Branch cyanocobala 2016-1 Yes Univer s [...] 2-09 ity of mcg/mL 00:00: [place] injection Medical Branch cyanocobala 2016-1 Yes Univer s min 1,000 2-09 ity of mcg/mL 00:00: [place] injection 00 Medical Branch cyanocobala 2016- Yes Univer s min 1,000 2-09 ity of mcg/mL 00:00: [place] injection 00 Medical Branch cyanocobala 2015-1 Yes Univer s min 1,000 2-09 ity of mcg/mL 00:00: [place] injection 00 Medical Branch cyanocobala 2016- Yes Univer s min 1,000 2-09 ity of mcg/mL 00:00: [place] injection 00 Medical Branch proMETHazin 2016 Yes Univer s e 0-03 ity of (PHENERGAN) 00:00: [place] 25 mg 00 Medical tablet Branch proMETHazin 2016- Yes Univer s e 0-03 ity of (PHENERGAN) 00:00: [place] 25 mg 00 Medical tablet Branch proMETHazin 2015- Yes Univer s e 0-03 ity of (PHENERGAN) 00:00: [place] 25 mg 00 Medical tablet Branch proMETHazin 2015- Yes Univer s e 0-03 ity of (PHENERGAN) 00:00: [place] 25 mg 00 Medical tablet Branch proMETHazin 2015-04 Yes Univer s e 0-03 ity of (PHENERGAN) 00:00: [place] 25 mg 00 Medical tablet Branch proMETHazin 2015-1 Yes Univer s e 0-03 ity of (PHENERGAN) 00:00: [place] 25 mg 00 Medical tablet Branch proMETHazin 2015- Yes Univer s e 0-03 ity of [...] 25 mg 00 Medical tablet Branch proMETHazin 2015- Yes Univer s e 0-03 ity of (PHENERGAN) 00:00: [place] 25 mg 00 Medical tablet Branch proMETHazin 2015- Yes Univer s e 0-03 ity of [...] unrelieved by non-narcot ic analgesics . acetaminoph 2015-0 Yes 1{tbl} Take 1 Un marsha en-codeine [...] unrelieved by non-narcot ic analgesics . acetaminoph 2016-0 Yes 1{tbl} Take 1 Un mars[facility] en-codeine [...] unrelieved by non-narcot ic analgesics . acetaminoph 2016-0 Yes 1{tbl} Take 1 Un [facility] en-codeine [...] unrelieved by non-narcot ic analgesics . acetaminoph 2016-0 Yes 1{tbl} Take 1 Un marsha en-codeine [...] ORAL) 39 Medical Branch Immunizations Ordered Filled Date Status Comments Source Immunization Name Immunization Name [facility] 2021-09-24 Completed University o f 00:00:00 [facility] 2021-09-24 Completed University o f 00:00:00 [facility] 2021-09-24 Completed University o f 00:00:00 [facility] 2021-09-24 Completed University o f 00:00:00 [facility] 2021-09-24 Completed University o f 00:00:00 [facility] 2021-09-24 Completed University o f 00:00:00 [facility] 2021-09-24 Completed University o f 00:00:00 [facility] 2021-09-24 Completed University o f 00:00:00 [facility] 2021-09-24 Completed University o f 00:00:00 [facility] 2021-09-24 Completed University o f 00:00:00 [facility] 2021-09-24 Completed University o f 00:00:00 [facility] 2021-09-24 Completed University o f 00:00:00 [facility] 2021-09-24 Completed University o f 00:00:[address] [facility] BEEMILIEMAB 2021-09-24 Completed University o f 00:00:[address] [facility] BEEMILIEMAB 2021-09-24 Completed University o f 00:00:[address] [facility] BEEMILIEMAB 2021-09-24 Completed University o f 00:00:[address] [facility] BEEMILIEMAB 2021-09-24 Completed University o f 00:00:[address] [facility] BEEMILIEMAB 2021-09-24 Completed University o f 00:00:[address] [facility] BEEMILIEMAB 2021-09-24 Completed University o f 00:00:[address] [facility] SARS-COV-2 COVID-19 2020-08-30 Completed Unive rsity of PFIZER VACCINE 00:00:00 [facility] SARS-COV-2 COVID-19 2020-08-30 Completed Unive rsity of PFIZER VACCINE 00:00:00 [facility] SARS-COV-2 COVID-19 2020-08-30 Completed Unive rsity of PFIZER VACCINE 00:00:00 [facility] SARS-COV-2 COVID-19 2020-08-30 Completed Unive rsity of PFIZER VACCINE 00:00:00 [facility] SARS-COV-2 COVID-19 2020-08-30 Completed Unive rsity of PFIZER VACCINE 00:00:00 [facility] SARS-COV-2 COVID-19 2020-08-30 Completed Unive rsity of PFIZER VACCINE 00:00:00 [facility] SARS-COV-2 COVID-19 2020-08-30 Completed Unive rsity of PFIZER VACCINE 00:00:00 [facility] SARS-COV-2 COVID-19 2020-08-30 Completed Unive rsity of PFIZER VACCINE 00:00:00 [facility] SARS-COV-2 COVID-19 2020-08-30 Completed Unive rsity of PFIZER VACCINE 00:00:00 [facility] SARS-COV-2 COVID-19 2020-08-30 Completed Unive rsity of PFIZER VACCINE 00:00:00 [facility] SARS-COV-2 COVID-19 2020-08-30 Completed Unive rsity of PFIZER VACCINE 00:00:00 [facility] Branch SARS-COV-2 COVID-19 2020-08-30 Completed Unive rsity of PFIZER VACCINE 00:00:00 [facility] Branch SARS-COV-2 COVID-19 2020-08-30 Completed Unive rsity of PFIZER VACCINE 00:00:00 [facility] Branch SARS-COV-2 COVID-19 2020-08-30 Completed Unive rsity of PFIZER VACCINE 00:00:00 [facility] Branch SARS-COV-2 COVID-19 2020-08-30 Completed Unive rsity of PFIZER VACCINE 00:00:00 [facility] Branch SARS-COV-2 COVID-19 2020-08-30 Completed Unive rsity of PFIZER VACCINE 00:00:00 [facility] Branch SARS-COV-2 COVID-19 2020-08-30 Completed Unive rsity of PFIZER VACCINE 00:00:00 [facility] Branch SARS-COV-2 COVID-19 2020-08-30 Completed Unive rsity of PFIZER VACCINE 00:00:00 [facility] Branch SARS-COV-2 COVID-19 2020-08-30 Completed Unive rsity of PFIZER VACCINE 00:00:00 [facility] Branch SARS-COV-2 COVID-19 2020-08-30 Completed Unive rsity of PFIZER VACCINE 00:00:00 [facility] Branch SARS-COV-2 COVID-19 2020-08-30 Completed Unive rsity of PFIZER VACCINE 00:00:00 [facility] Branch SARS-COV-2 COVID-19 2020-08-30 Completed Unive rsity of PFIZER VACCINE 00:00:00 [facility] Branch SARS-COV-2 COVID-19 2020-08-30 Completed Unive rsity of PFIZER VACCINE 00:00:00 [facility] Branch SARS-COV-2 COVID-19 2020-08-30 Completed Unive rsity of PFIZER VACCINE 00:00:00 [facility] Branch SARS-COV-2 COVID-19 2020-08-30 Completed Unive rsity of PFIZER VACCINE 00:00:00 [facility] SARS-COV-2 COVID-19 2020-08-30 Completed Unive rsity of PFIZER VACCINE 00:00:00 [facility] SARS-COV-2 COVID-19 2020-08-04 Completed Unive rsity of PFIZER VACCINE 00:00:00 [facility] SARS-COV-2 COVID-19 2020-08-04 Completed Unive rsity of PFIZER VACCINE 00:00:00 [facility] Branch SARS-COV-2 COVID-19 2020-08-04 Completed Unive rsity of PFIZER VACCINE 00:00:00 [facility] SARS-COV-2 COVID-19 2020-08-04 Completed Unive rsity of PFIZER VACCINE 00:00:00 [facility] Branch SARS-COV-2 COVID-19 2020-08-04 Completed Unive rsity of PFIZER VACCINE 00:00:00 [facility] Branch SARS-COV-2 COVID-19 2020-08-04 Completed Unive rsity of PFIZER VACCINE 00:00:00 [facility] SARS-COV-2 COVID-19 2020-08-04 Completed Unive rsity of PFIZER VACCINE 00:00:00 [facility] SARS-COV-2 COVID-19 2020-08-04 Completed Unive rsity of PFIZER VACCINE 00:00:00 [facility] Branch SARS-COV-2 COVID-19 2020-08-04 Completed Unive rsity of PFIZER VACCINE 00:00:00 [facility] SARS-COV-2 COVID-19 2020-08-04 Completed Unive rsity of PFIZER VACCINE 00:00:00 [facility] SARS-COV-2 COVID-19 2020-08-04 Completed Unive rsity of PFIZER VACCINE 00:00:00 [facility] SARS-COV-2 COVID-19 2020-08-04 Completed Unive rsity of PFIZER VACCINE 00:00:00 [facility] Branch SARS-COV-2 COVID-19 2020-08-04 Completed Unive rsity of PFIZER VACCINE 00:00:00 [facility] Branch SARS-COV-2 COVID-19 2020-08-04 Completed Unive rsity of PFIZER VACCINE 00:00:00 [facility] SARS-COV-2 COVID-19 2020-08-04 Completed Unive rsity of PFIZER VACCINE 00:00:00 [facility] SARS-COV-2 COVID-19 2020-08-04 Completed Unive rsity of PFIZER VACCINE 00:00:00 [facility] SARS-COV-2 COVID-19 2020-08-04 Completed Unive rsity of PFIZER VACCINE 00:00:00 [facility] SARS-COV-2 COVID-19 2020-08-04 Completed Unive rsity of PFIZER VACCINE 00:00:00 [facility] SARS-COV-2 COVID-19 2020-08-04 Completed Unive rsity of PFIZER VACCINE 00:00:00 [facility] SARS-COV-2 COVID-19 2020-08-04 Completed Unive rsity of PFIZER VACCINE 00:00:00 [facility] SARS-COV-2 COVID-19 2020-08-04 Completed Unive rsity of PFIZER VACCINE 00:00:00 [facility] SARS-COV-2 COVID-19 2020-08-04 Completed Unive rsity of PFIZER VACCINE 00:00:00 [facility] SARS-COV-2 COVID-19 2020-08-04 Completed Unive rsity of PFIZER VACCINE 00:00:00 [facility] SARS-COV-2 COVID-19 2020-08-04 Completed Unive rsity of PFIZER VACCINE 00:00:00 [facility] SARS-COV-2 COVID-19 2020-08-04 Completed Unive rsity of PFIZER VACCINE 00:00:00 [facility] SARS-COV-2 COVID-19 2020-08-04 Completed Unive rsity of PFIZER VACCINE 00:00:00 [facility] FLUCELVAX QUAD PF 2020-06-[address] [facility] FLUCELVAX QUAD PF 2020-06-[address] [facility] FLUCELVAX QUAD PF Unknown [facility]pleted [facility] Vital Signs Vital Name Observation Time Observation Value Comments Source Systolic blood 2022-07-11 02:55:00 149 mm[Hg] Univer sity of pressure [facility] Diastolic blood 2022-07-11 02:55:00 85 mm[Hg] Unive rsity of pressure [facility] Heart rate 2022-07-11 02:55:00 68 /min [facility]i of [facility] Respiratory rate 2022-07-11 02:55:00 18 /min Univ ersity of [facility] Oxygen saturation in 2022-07-11 02:55:00 97 /min University of Arterial blood by [place] [employer] sasha Pulse oximetry Branch Body temperature 2022-07-11 00:02:00 37.61 Mimi Univ ersity of [place] [facility] Body height 2022-07-11 00:02:00 165.1 cm [facility] [place] [facility] Body weight 2022-07-11 00:02:00 111.131 kg [facility] [place] [facility] BMI 2022-07-11 00:02:00 40.77 kg/m2 [facility] [place] [facility] Heart rate 2022-06-07 21:06:00 81 /min [facility] [place] [facility] Respiratory rate 2022-06-07 21:06:00 14 /min [facility] ers[facility] [place] [facility] Oxygen saturation in 2022-06-07 21:06:00 96 /min University of Arterial blood by [place] [employer] sasha Pulse oximetry Branch Systolic blood 2022-06-07 21:01:00 128 mm[Hg] Univer sity of pressure [place] [facility] Diastolic blood 2022-06-07 21:01:00 76 mm[Hg] Unive rsity of pressure [place] [facility] Body temperature 2022-06-07 20:30:00 36.5 Mimi [facility] ers[facility] [place] [facility] Body weight 2022-06-07 20:25:00 108.863 kg [facility] [place] [facility] BMI 2022-06-07 20:25:00 39.94 kg/m2 [facility] [place] [facility] Systolic blood 2022-06-07 20:57:00 133 mm[Hg] Univer sity of pressure [place] [facility] Diastolic blood 2022-06-07 20:57:00 74 mm[Hg] Unive rsity of pressure [place] [facility] Heart rate 2022-06-07 20:57:00 81 /min [facility] [place] [facility] Respiratory rate 2022-06-07 20:57:00 13 /min [facility] ersity [facility] [place] [facility] Branch Oxygen saturation in 2022-06-07 20:57:00 92 /min [facility] Arterial blood by [place] [employer]asha Pulse oximetry Branch Body temperature 2022-06-07 20:30:00 36.5 Mimi [facility] [place] [facility] Body weight 2022-06-07 20:25:00 108.863 kg [facility] [place] [facility] BMI 2022-06-07 20:25:00 39.94 kg/m2 [facility] [place] [facility] Systolic blood 2022-04-06 05:50:00 134 mm[Hg] Univer [facility]ity [facility] pressure [place] [facility] Diastolic blood 2022-04-06 05:50:00 88 mm[Hg] Unive rsity of pressure [facility] Heart rate 2022-04-06 05:50:00 80 /min [facility] [place] [facility] Respiratory rate 2022-04-06 05:50:00 20 /min [facility] [place] [facility] Oxygen saturation in 2022-04-06 05:50:00 99 /min [facility] blood by [place] [employer] Pulse oximetry Branch Body temperature 2022-04-06 03:45:00 36.72 Mimi [facility] Body height 2022-04-06 03:45:00 165.1 cm [facility] Body weight 2022-04-06 03:45:00 108.863 kg [facility] BMI 2022-04-06 03:45:00 39.94 kg/m2 [facility] [place] [facility] Systolic blood 2022-03-04 13:20:00 118 mm[Hg] [facility] [place] [facility] Diastolic blood 2022-03-04 13:20:00 74 mm[Hg] [facility]ive [facility]ity [facility] Heart rate 2022-03-04 13:20:00 80 /min [facility] [place] [facility] Respiratory rate 2022-03-04 13:20:00 18 /min [facility] [place] [facility] Oxygen saturation in 2022-03-04 13:20:00 98 /min [facility]ial blood by [place] [employer] Pulse oximetry Branch Body temperature 2022-03-04 11:24:00 36.72 Mimi [facility] Body height 2022-03-04 11:24:00 165.1 cm [facility] Body weight 2022-03-04 11:24:00 106.595 kg [facility] BMI 2022-03-04 11:24:00 39.11 kg/m2 [facility] Systolic blood 2022-02-20 16:24:00 133 mm[Hg] [facility] [place] [facility] Diastolic blood 2022-02-20 16:24:00 87 mm[Hg] Unive rsity of pressure [facility] Heart rate 2022-02-20 16:24:00 60 /min [facility] Body temperature 2022-02-20 16:24:00 35.67 Mimi [facility] [place] [facility] Respiratory rate 2022-02-20 16:24:00 18 /min [facility] [place] [facility] Oxygen saturation in 2022-02-20 16:24:00 96 /min [facility] Arterial blood by [facility] Pulse oximetry Branch Body weight 2022-02-20 09:12:00 122.471 kg [facility] BMI 2022-02-20 09:12:00 44.93 kg/m2 [facility] Body height 2022-02-10 21:16:00 165.1 cm [facility] Systolic blood 2022-02-17 22:17:00 155 mm[Hg] [facility] Diastolic blood 2022-02-17 22:17:00 71 mm[Hg] Unive rsity of pressure [facility] Heart rate 2022-02-17 22:17:00 76 /min [facility] Respiratory rate 2022-02-17 22:17:00 21 /min [facility] [place] [facility] Oxygen saturation in 2022-02-17 22:17:00 94 /min [facility] Arterial blood by [facility] Pulse oximetry Branch Body temperature 2022-02-17 22:07:00 36.44 Mimi [facility] Body weight 2022-02-16 08:13:00 109.317 kg [facility] BMI 2022-02-16 08:13:00 44.43 kg/m2 [facility] Body height 2022-02-10 21:16:00 165.1 cm [facility] Systolic blood 2021-09-24 21:16:00 134 mm[Hg] [facility] [place] [facility] Diastolic blood 2021-09-24 21:16:00 76 mm[Hg] Unive rsity of pressure [facility] Heart rate 2021-09-24 21:16:00 63 /min [facility] Body temperature 2021-09-24 21:16:00 36.39 Mimi [facility] Respiratory rate 2021-09-24 21:16:00 18 /min [facility] Oxygen saturation in 2021-09-24 21:16:00 98 /min [facility]ial blood by [place] [employer] Pulse oximetry Branch Body height 2021-09-24 20:16:00 165.1 cm [facility] Body weight 2021-09-24 20:16:00 113.399 kg [facility] BMI 2021-09-24 20:16:00 41.60 kg/m2 [facility] Systolic blood 2021-04-29 19:27:00 122 mm[Hg] [facility] [place] [facility] Diastolic blood 2021-04-29 19:27:00 83 mm[Hg] Unive rsity of pressure [place] [facility] Heart rate 2021-04-29 19:27:00 78 /min [facility] Body temperature 2021-04-29 19:27:00 36.11 Mimi [facility] Respiratory rate 2021-04-29 19:27:00 20 /min [facility] [place] [facility] Body height 2021-04-29 19:27:00 163.8 cm [facility] Body weight 2021-04-29 19:27:00 116.574 kg [facility] BMI 2021-04-29 19:27:00 43.43 kg/m2 [facility] [place] [facility] Oxygen saturation in 2021-04-29 19:27:00 95 /min [facility] blood by [place] [employer] Pulse oximetry Branch Heart rate 2021-03-16 20:19:00 86 /min [facility] [place] [facility] Respiratory rate 2021-03-16 20:19:00 26 /min [facility] [place] [facility] Oxygen saturation in 2021-03-16 20:17:00 91 /min [facility]ial blood by [place] [employer] Pulse oximetry Branch Systolic blood 2021-03-16 20:13:00 149 mm[Hg] [facility]iver [facility]ity of [facility] [place] [facility] Diastolic blood 2021-03-16 20:13:00 77 mm[Hg] Unive rsity of pressure [facility] Body temperature 2021-03-16 18:48:00 36.39 Mimi Univ ersity of [facility] Body weight 2021-03-15 17:48:00 115.7 kg [facility] [place] [facility] [place] BMI 2021-03-15 17:48:00 42.45 kg/m2 Universi ty of [facility] Body height 2021-03-15 15:15:00 165.1 cm Universi ty of [facility] Heart rate 2021-03-16 19:12:00 78 /min Universi ty of [facility] Respiratory rate 2021-03-16 19:12:00 19 /min Univ ersity of [facility] Oxygen saturation in 2021-03-16 19:12:00 98 /min [facility] Arterial blood by [facility] Pulse oximetry Branch Systolic blood 2021-03-16 19:08:00 133 mm[Hg] Univer [facility]ity of [facility] Diastolic blood 2021-03-16 19:08:00 84 mm[Hg] Unive rsity of [facility] Body temperature 2021-03-16 18:48:00 36.39 Mimi Univ ersity of [facility] Body weight 2021-03-15 17:48:00 115.7 kg Universi ty of [facility] BMI 2021-03-15 17:48:00 42.45 kg/m2 Universi ty of [facility] Body height 2021-03-15 15:15:00 165.1 cm Universi ty of [facility] Systolic blood 2021-02-22 18:54:00 123 mm[Hg] Univer sity of [facility] Diastolic blood 2021-02-22 18:54:00 81 mm[Hg] Unive rsity of pressure [facility] Body weight 2021-02-22 18:54:00 122.471 kg Universi ty of [facility] BMI 2021-02-22 18:54:00 44.93 kg/m2 Universi ty of [facility] Systolic blood 2022-06-22 13:40:44 147 mm[Hg] Method ist [facility] pressure Diastolic blood 2022-06-22 13:40:44 88 mm[Hg] [facility] pressure Heart rate 2022-06-22 13:40:44 65 /min [facility] Body temperature 2022-06-22 13:40:44 36.44 Mimi [facility] Respiratory rate 2022-06-22 13:40:44 16 /min [facility] Oxygen saturation in 2022-06-22 13:40:44 95 /min [facility] Arterial blood by Pulse oximetry Body height 2022-06-17 10:55:00 165.1 cm [facility] Body weight 2022-06-17 10:55:00 110.315 kg [facility] BMI 2022-06-17 10:55:00 40.47 kg/m2 [facility] Procedures Procedure Date / Time Performing Clinician Source Performed XR SPINE SCOLIOSIS 2-3 2022-11-11 16:14:20 Jl Gill [facility] VIEWS US HEAD NECK 2022-09-29 18:41:11 Nader Gonzalez Dion[facility] XR KUB KIDNEY URETER 2022-08-12 15:49:05 [facility] BLADDER XR LUMBAR SPINE AP LATERAL 2022-08-12 15:48:28 [facility] FLEXION AND EXTENSION XR THORACIC SPINE 3 VW 2022-08-12 15:48:[address] [facility] [address] ABDOMEN PELVIS W 2022-07-11 01:56:12 [facility] Medical Branch LIPASE 2022-07-11 00:53:00 Angel [facility] COMP. METABOLIC PANEL 2022-07-11 00:53:00 [id number] CBC WITH DIFF 2022-07-11 00:53:00 Angel, [facility] LACTIC ACID WHOLE BLOOD 2022-07-11 00:53:00 Angel, [facility] CONSENT/REFUSAL FOR 2022-07-10 23:59:32 Doctor Unassigned, [facility] DIAGNOSIS AND TREATMENT [place] Medical [facility] CT ABDOMEN PELVIS W 2022-07-01 16:53:00 Dina Lang [facility] CONTRAST XR CERVICAL SPINE 1 VW 2022-06-22 15:39:36 [facility] XR LUMBAR SPINE 1 VW 2022-06-22 15:39:20 [facility] XR THORACIC SPINE 1 VW 2022-06-22 15:39:04 [facility] COMPREHENSIVE METABOLIC 2022-06-22 10:29:00 [facility] PANEL CBC WITH PLATELET AND 2022-06-22 10:29:00 [facility] GFR 2022-06-22 10:29:00 Genoveva Terrazas spital VENIPUNC NEED PHYS 2022-06-21 23:31:28 Genna [facility] SKILL,DX OR RX [place] BASIC METABOLIC PANEL 2022-06-21 13:06:00 Sydin Mckeon [facility] VANCOMYCIN LEVEL, TROUGH 2022-06-21 13:06:00 [facility] ESTIMATED GFR 2022-06-21 13:06:00 Sydni Mckeon spital IR LUMBAR PUNCTURE 2022-06-20 22:01:34 Rickey [facility] CSF CULTURE 2022-06-20 21:49:00 Dina Lang spital FUNGUS CULTURE 2022-06-20 21:49:00 [facility] C[facility] 2022-06-20 21:49:00 [facility] CRYPTOCOCCAL ANTIGEN 2022-06-20 21:49:00 Dina Lang [facility] SCREEN GRAM STAIN 2022-06-20 21:49:00 Dina Lang spital CSF CELL COUNT WITH 2022-06-20 21:49:00 Rickey Dina [facility] DIFFERENTIAL PROTEIN, CSF 2022-06-20 21:49:00 Dina Lang spital GLUCOSE LEVEL, CSF 2022-06-20 21:49:00 Rickey [facility] CBC WITH PLATELET AND 2022-06-20 11:46:00 MikeSydni pak [facility] DIFFERENTIAL BASIC METABOLIC PANEL 2022-06-20 11:46:00 [facility] ESTIMATED GFR 2022-06-20 11:46:00 Mike, Sydni [facility] spital VANCOMYCIN LEVEL, TROUGH 2022-06-19 14:12:00 [facility] CREATININE LEVEL 2022-06-19 11:34:00 Dina Langist H ospital ESTIMATED GFR 2022-06-19 11:34:00 RickeyDina bourne [facility] spital CREATININE LEVEL 2022-06-18 10:46:00 [facility] 2022-06-18 10:46:00 [facility] ospital [place] VANCOMYCIN LEVEL, TROUGH 2022-06-18 02:15:00 [facility] NEEDLE ASPIRATION 2022-06-17 17:30:00 [facility] AEROBIC CULTURE 2022-06-17 17:16:00 [facility] GRAM STAIN 2022-06-17 17:16:00 [facility] ANAEROBIC CULTURE 2022-06-17 17:16:00 [facility] CBC WITH PLATELET AND 2022-06-17 10:43:00 [facility] DIFFERENTIAL BASIC METABOLIC PANEL 2022-06-17 10:43:00 [facility] ESTIMATED GFR 2022-06-17 10:43:[address] [facility] spital PROTHROMBIN TIME WITH INR 2022-06-17 10:43:00 [facility] CONSULT TO OSTOMY CARE 2022-06-17 09:36:02 Inocencia Herrera [facility] NURSE LACTIC ACID LEVEL, SEPSIS 2022-06-17 04:02:00 [facility] NOW [facility] REPEAT 2X EVERY 3 HOURS LACTIC ACID LEVEL, SEPSIS 2022-06-17 00:11:00 [facility] NOW AND REPEAT 2X EVERY 3 HOURS CREATINE KINASE, TOTAL 2022-06-17 00:11:[address] [facility] (CPK) [facility] ABDOMINAL LIMITED 2022-06-16 23:09:00 Inocencia Herrera [facility] COVID-19 QUALITATIVE 2022-06-16 20:09:00 [facility] RT-PCR BLOOD CULTURE, AEROBIC & 2022-06-16 20:01:00 [facility] ANAEROBIC LACTIC ACID LEVEL, SEPSIS 2022-06-16 20:01:00 [facility] - NOW AND REPEAT 2X EVERY 3 HOURS COMPREHENSIVE METABOLIC 2022-06-16 20:01:00 [facility] PANEL CBC WITH PLATELET AND 2022-06-16 20:01:00 [facility] DIFFERENTIAL ESTIMATED GFR 2022-06-16 20:01:[address] [facility] [address] ABDOMEN PELVIS W 2022-06-08 22:58:18 Requisition, Paper [facility] CYST EXCISION 2022-06-07 19:30:00 Olga Major [facility] DAY SURGERY - ADC 2022-06-07 06:01:00 Doctor Unassigned, [facility] Name Medical [place] EXTERNAL PROVIDER RECORDS 2022-06-02 06:01:00 Doctor Unassigned, [facility] Name [facility] EXTERNAL PROVIDER RECORDS 2022-06-02 06:01:00 Doctor Unassigned, [facility] CBC WITH PLATELET AND 2022-05-26 10:30:00 [facility] DIFFERENTIAL COMPREHENSIVE METABOLIC 2022-05-26 10:30:00 [facility] PANEL ESTIMATED GFR 2022-05-26 10:30:00 [facility] VANCOMYCIN LEVEL, TROUGH 2022-05-26 08:40:00 Piedad Aj [facility] ESTIMATED GFR 2022-05-26 08:26:00 Dina Lang spital PICC INSERTION REQUEST 2022-05-25 21:53:56 [facility] [place] BUN LEVEL 2022-05-25 21:14:00 Dina Lang spital CONSULT TO OSTOMY CARE 2022-05-25 19:33:07 Dina Lang [facility] NURSE PROTHROMBIN TIME WITH INR 2022-05-25 12:25:00 Gurwinder Selby [facility] CBC WITH PLATELET AND 2022-05-23 09:58:00 Jenny Jansen [facility] DIFFERENTIAL BASIC METABOLIC PANEL 2022-05-23 09:58:00 Justyna Jenny [facility] MAGNESIUM LEVEL 2022-05-23 09:58:00 Jenny Jansen Ho spital PHOSPHORUS LEVEL 2022-05-23 09:58:00 Jenny Jansen H ospital ESTIMATED GFR 2022-05-23 09:58:00 Jenny Jansen Ho spital CBC WITH PLATELET AND 2022-05-22 08:45:00 Justyna [facility] DIFFERENTIAL BASIC METABOLIC PANEL 2022-05-22 08:45:00 Justyna Jenny [facility] MAGNESIUM LEVEL 2022-05-22 08:45:00 Jenny Jansen Ho spital PHOSPHORUS LEVEL 2022-05-22 08:45:00 Jenny Jansen H ospital ESTIMATED GFR 2022-05-22 08:45:00 Jenny Jansen Ho spital VANCOMYCIN LEVEL, TROUGH 2022-05-22 06:45:00 [facility]Ma[facility] BASIC METABOLIC PANEL 2022-05-21 09:50:00 Gerardo Hodge [facility] CBC HEMOGRAM 2022-05-21 09:50:00 Gerardo Hodge spital MAGNESIUM LEVEL 2022-05-21 09:50:00 Gerardo Hodge Ho spital ESTIMATED GFR 2022-05-21 09:50:00 Gerardo Hodge Ho spital POC GLUCOSE 2022-05-21 02:53:00 [facility] [place] < 1 HOUR 2022-05-20 19:13:45 [facility] ANAEROBIC CULTURE 2022-05-20 18:20:00 Staci [facility] FUNGUS CULTURE 2022-05-20 18:20:00 [facility] AEROBIC CULTURE 2022-05-20 18:20:00 [facility] hospitalDel cantu [facility] CULTURE 2022-05-20 18:20:00 [facility] GRAM STAIN 2022-05-20 18:20:00 [facility] AFB STAIN 2022-05-20 18:20:00 [facility] TN AN ELECTIVE 2022-05-20 16:36:00 Alissa Ulloa Nadeen [facility] ENDOTRACHEAL AIRWAY INSERTION OR REVISION, 2022-05-20 16:26:00 [facility] PUMP, INTRATHECAL CBC WITH PLATELET AND 2022-05-20 11:14:00 [facility] DIFFERENTIAL ESTIMATED GFR 2022-05-20 11:04:00 MaxinenmjacquelineAndrewVeterans Affairs [facility] Healthcare SystemDebbi [facility] VANCOMYCIN LEVEL, RANDOM 2022-05-20 06:49:00 [facility] PARTIAL THROMBOPLASTIN 2022-05-19 22:19:00 [facility] TIME (PTT) [place] PROTHROMBIN TIME WITH INR 2022-05-19 22:19:00 [facility] CityDestineeMaddieCH[facility] CBC WITH PLATELET AND 2022-05-19 11:03:00 [facility] DIFFERENTIAL BASIC METABOLIC PANEL 2022-05-19 11:03:00 [facility] ESTIMATED GFR 2022-05-19 11:03:00 Maxinearbor healthMaicolJoint [facility] VANCOMYCIN LEVEL, RANDOM 2022-05-18 23:06:00 Dest[facility] US NEEDLE ASPIRATION 2022-05-18 17:27:14 Rickey [facility] BODY FLUID CULTURE 2022-05-18 17:01:00 Maxinearbor healthDel [facility] CBC WITH PLATELET AND 2022-05-18 10:21:00 [facility] DIFFERENTIAL BASIC METABOLIC PANEL 2022-05-18 10:21:00 [facility] ESTIMATED GFR 2022-05-18 10:21:00 [facility] IR LUMBAR PUNCTURE 2022-05-17 20:15:00 [facility] [place] CSF CULTURE 2022-05-17 20:03:00 [facility] spital [place] FUNGUS CULTURE 2022-05-17 20:03:00 [facility] Ho spital [place] AFB CULTURE 2022-05-17 20:03:00 [facility] Ho spital [place] CRYPTOCOCCAL ANTIGEN 2022-05-17 20:03:00 [facility] SCREEN [place] MENINGITIS/ENCEPHALITIS 2022-05-17 20:03:00 [facility] PANEL [place] GRAM STAIN 2022-05-17 20:03:00 [facility] Ho spital [place] CSF CELL COUNT WITH 2022-05-17 20:03:00 [facility] DIFFERENTIAL [place] PROTEIN, CSF 2022-05-17 20:03:00 [facility] Ho spital [place] GLUCOSE LEVEL, CSF 2022-05-17 20:03:00 [facility] [place] PROTHROMBIN TIME WITH INR 2022-05-17 14:17:00 Damian Vargas [facility] Y[facility] CT HEAD WO CONTRAST 2022-05-17 12:11:14 [facility] [place] LACTIC ACID LEVEL, SEPSIS 2022-05-17 08:58:00 [facility] - NOW AND REPEAT 2X EVERY Misbah 3 HOURS CBC WITH PLATELET AND 2022-05-17 08:58:00 [facility] DIFFERENTIAL [place] COMPREHENSIVE METABOLIC 2022-05-17 08:58:00 [facility] PANEL [place] TYPE AND SCREEN 2022-05-17 08:58:00 Mcgregor, [facility] sp[facility] [place] ESTIMATED GFR 2022-05-17 08:58:00 Sophia Mcgregorlon [facility] URINE CULTURE 2022-05-17 08:49:00 Mcgregor, [facility] URINALYSIS SCREEN AND 2022-05-17 08:49:00 [facility] MICROSCOPY, WITH REFLEX TO [place] CULTURE LACTIC ACID LEVEL, SEPSIS 2022-05-17 05:48:00 [facility] - NOW AND REPEAT 2X EVERY Misbah 3 HOURS SEDIMENTATION RATE 2022-05-17 05:48:00 [facility] C-REACTIVE PROTEIN 2022-05-17 05:48:00 [facility] COVID-19 QUALITATIVE 2022-05-17 04:37:00 [facility] RT-PCR CT ABDOMEN PELVIS W 2022-05-17 04:21:50 [facility] CONTRAST BLOOD CULTURE, AEROBIC & 2022-05-17 02:29:00 [facility] ANAEROBIC LACTIC ACID LEVEL, SEPSIS 2022-05-17 02:26:00 [facility] - NOW AND REPEAT 2X EVERY Misbah 3 HOURS CBC WITH PLATELET AND 2022-05-17 02:26:00 [facility] DIFFERENTIAL COMPREHENSIVE METABOLIC 2022-05-17 02:26:00 [facility] PANEL ESTIMATED GFR 2022-05-17 02:26:00 [facility] BLOOD CULTURE, AEROBIC & 2022-05-17 01:50:00 [facility] ANAEROBIC XR KUB KIDNEY URETER 2022-04-29 15:53:44 [facility] BLADDER XR LUMBAR SPINE AP LATERAL 2022-04-29 15:53:27 [facility] FLEXION AND EXTENSION XR THORACIC SPINE 2 VW 2022-04-29 15:53:08 Mao Small [facility] ECG 12-LEAD 2022-04-18 14:37:55 Martha Villarreal [facility] COMPREHENSIVE METABOLIC 2022-04-18 10:33:00 Osuakarina [facility] PANEL CBC WITH PLATELET AND 2022-04-18 10:33:00 Osuawu [facility] DIFFERENTIAL PHOSPHORUS LEVEL 2022-04-18 10:33:00 Osuagwu [facility] MAGNESIUM LEVEL 2022-04-18 10:33:00 Osuagwu [facility] ospital ESTIMATED GFR 2022-04-18 10:33:00 [facility] Nereida [facility] LACTIC ACID LEVEL, SEPSIS 2022-04-17 22:16:00 Ayon [facility] - NOW AND REPEAT 2X EVERY 3 HOURS XR THORACIC SPINE 2 VW 2022-04-17 21:33:00 [facility] XR LUMBAR SPINE 2 OR 3 VW 2022-04-17 21:33:00 [facility] GASTROINTESTINAL PATHOGENS 2022-04-17 19:08:00 MngiannabannerKatrina [facility] PANEL, PCR ECG 12-LEAD 2022-04-17 18:36:20 Raul Ayon [facility] LACTIC ACID LEVEL, SEPSIS 2022-04-17 17:11:00 [facility] - NOW AND REPEAT 2X EVERY 3 HOURS BETA HYDROXYBUTYRATE 2022-04-17 17:11:00 Martha Villarreal [facility] CT THORACIC SPINE WO 2022-04-17 13:50:28 [facility]BDOMEN PELVIS WO 2022-04-17 13:50:14 Raul Ayon Manuel [facility] CONTRAST COVID-19 QUALITATIVE 2022-04-17 12:59:00 Raul Ayon [facility] RT-PCR URINALYSIS SCREEN AND 2022-04-17 12:59:00 Raul Ayon [facility] MICROSCOPY, WITH REFLEX TO CULTURE URINE CULTURE 2022-04-17 12:46:00 [facility] URINE CULTURE 2022-04-17 12:19:00 [facility] CBC WITH PLATELET AND 2022-04-17 12:19:00 [facility] DIFFERENTIAL COMPREHENSIVE METABOLIC 2022-04-17 12:19:00 [facility] PANEL LIPASE LEVEL 2022-04-17 12:19:00 [facility] URINALYSIS SCREEN AND 2022-04-17 12:19:00 [facility] MICROSCOPY, WITH REFLEX TO CULTURE ESTIMATED GFR 2022-04-17 12:19:00 Mukesh Florez spital PHOSPHORUS LEVEL 2022-04-17 12:19:00 Mukesh Florez ospital LACTIC ACID LEVEL 2022-04-17 12:19:00 Mukesh Florez [facility] AMYLASE LEVEL 2022-04-17 12:19:00 Mukesh Florez spital MAGNESIUM LEVEL 2022-04-17 12:19:00 Mukesh Florez spital CBC WITH DIFF 2022-04-08 19:01:00 Mao Small [place] [facility] PROTHROMBIN TIME / INR 2022-04-08 19:01:00 [facility] ACTIVATED PARTIAL THRMPLAS 2022-04-08 19:01:00 Mao Small [facility] CT TRAUMA CERVICAL SPINE 2022-04-06 05:30:06 Armando [facility] CONTRAST Medical Branch CT TRAUMA THORACIC SPINE 2022-04-06 05:30:06 Armando [facility] CONTRAST [facility] CT TRAUMA LUMBAR SPINE WO 2022-04-06 05:30:06 Armando Emile [facility] CONTRAST Medical Branch NOTICE OF PRIVACY 2022-04-06 01:58:34 Doctor Unassigned, [facility] PRACTICES [place] [facility] CONSENT/REFUSAL FOR 2022-04-06 01:58:06 Doctor Unassigned, [facility] DIAGNOSIS AND TREATMENT [place] [facility] NM GASTRIC EMPTYING 2022-03-28 19:04:00 Olga Major [facility] XR ELBOW <3 VW LEFT 2022-03-28 19:01:[address] [facility] XR SPINE SCOLIOSIS 2-3 2022-03-08 16:47:32 Jl Gill [facility] VIEWS XR ABDOMEN 1 VW 2022-03-04 12:48:33 Abbey Beltran [facility] CONSENT/REFUSAL FOR 2022-03-04 11:01:51 Doctor Unasslaya, [facility] DIAGNOSIS AND TREATMENT [place] [facility] COMP. METABOLIC PANEL 2022-02-20 08:44:00 Kriss Farmer [facility] ([id number]) Medical [place] CBC WITH DIFF 2022-02-20 08:44:00 Kriss Farmer [facility] POCT GLUCOSE (AUTOMATED) 2022-02-18 21:41:00 Kriss Farmer [facility] POCT GLUCOSE (AUTOMATED) 2022-02-18 16:31:00 Kriss Farmer [facility] POCT GLUCOSE (AUTOMATED) 2022-02-18 16:31:00 Kriss Farmer [facility] POCT GLUCOSE (AUTOMATED) 2022-02-18 12:38:00 Kriss Farmer [facility] POCT GLUCOSE (AUTOMATED) 2022-02-18 12:38:00 Kriss Farmer [facility] BASIC METABOLIC PANEL (NA, 2022-02-18 08:59:00 Kriss Farmer [facility] K, CL, CO2, GLUCOSE, BUN, Medica l Branch CREATININE, CA) CBC WITHOUT DIFF 2022-02-18 08:59:00 Olga Major [facility] HEPATIC FUNCTION PANEL 2022-02-18 08:59:00 Olga Major [facility] ([id number]) (ALB,T.PRO,BILI Medical Branch T,BU/BC,ALT,AST,ALK PHOS) BASIC METABOLIC PANEL (NA, 2022-02-18 08:59:00 Kriss Farmer [facility] K, CL, CO2, GLUCOSE, BUN, Medica l Branch CREATININE, CA) CBC WITHOUT DIFF 2022-02-18 08:59:00 Olga Major [facility] HEPATIC FUNCTION PANEL 2022-02-18 08:59:00 Olga Major [facility] ([id number]) (ALB,T.PRO,BILI Medical Branch T,BU/BC,ALT,AST,ALK PHOS) POCT GLUCOSE (AUTOMATED) 2022-02-18 01:10:00 Kriss Farmer [facility] POCT GLUCOSE (AUTOMATED) 2022-02-18 01:10:00 Kriss Farmer [facility] POCT GLUCOSE (AUTOMATED) 2022-02-17 22:27:00 Kriss Farmer [facility] POCT GLUCOSE (AUTOMATED) 2022-02-17 22:27:00 Kriss Farmer [facility] CHOLECYSTECTOMY 2022-02-17 19:29:00 Olga Major [facility] LAPAROSCOPY WITH Medical Branch CHOLANGIOGRAM CHOLECYSTECTOMY 2022-02-17 19:29:00 Olga Major [facility] LAPAROSCOPY WITH Medical Branch CHOLANGIOGRAM POCT GLUCOSE (AUTOMATED) 2022-02-17 16:21:00 Kriss Farmer [facility] POCT GLUCOSE (AUTOMATED) 2022-02-17 16:21:00 Kriss Farmer [facility] LIPASE 2022-02-17 13:01:00 Chip Yee [facility] HEPATIC FUNCTION PANEL 2022-02-17 13:01:00 Chip Yee [facility] ([id number]) (ALB,T.PRO,BILI Medical Branch T,BU/BC,ALT,AST,ALK PHOS) LIPASE 2022-02-17 13:01:00 Chip Yee [facility] HEPATIC FUNCTION PANEL 2022-02-17 13:01:00 Baidoo, [facility] ([id number]) (ALB,T.PRO,BILI Medical Branch T,BU/BC,ALT,AST,ALK PHOS) POCT GLUCOSE (AUTOMATED) 2022-02-17 12:18:00 Loi Nazario [facility] POCT GLUCOSE (AUTOMATED) 2022-02-17 12:18:00 Loi Nazario [facility] POCT GLUCOSE (AUTOMATED) 2022-02-17 02:04:00 Loi Nazario [facility] POCT GLUCOSE (AUTOMATED) 2022-02-17 02:04:00 Loi Nazario [facility] POCT GLUCOSE (AUTOMATED) 2022-02-16 21:30:00 Loi Nazario [facility] POCT GLUCOSE (AUTOMATED) 2022-02-16 21:30:00 Loi Nazario [facility] POCT GLUCOSE (AUTOMATED) 2022-02-16 16:51:00 Loi Nazario [facility] POCT GLUCOSE (AUTOMATED) 2022-02-16 16:51:00 Loi Nazario [facility] POCT GLUCOSE (AUTOMATED) 2022-02-16 12:38:00 Loi Nazario [facility] POCT GLUCOSE (AUTOMATED) 2022-02-16 12:38:00 Loi Nazario [facility] BASIC METABOLIC PANEL (NA, 2022-02-16 08:32:00 Loi Nazario [facility] K, CL, CO2, GLUCOSE, BUN, Medica l Branch CREATININE, CA) CBC WITH DIFF 2022-02-16 08:32:00 Loi Nazario [facility] LIPASE 2022-02-16 08:32:00 Loi Nazario [facility] BASIC METABOLIC PANEL (NA, 2022-02-16 08:32:00 Loi Nazario [facility] K, CL, CO2, GLUCOSE, BUN, Medica l Branch CREATININE, CA) CBC WITH DIFF 2022-02-16 08:32:00 Loi Nazario [facility] LIPASE 2022-02-16 08:32:00 Loi Nazario [facility] POCT GLUCOSE (AUTOMATED) 2022-02-16 01:21:00 Loi Nazario [facility] POCT GLUCOSE (AUTOMATED) 2022-02-16 01:21:00 Loi Nazario [facility] POCT GLUCOSE (AUTOMATED) 2022-02-15 21:47:00 Loi Nazario [facility] POCT GLUCOSE (AUTOMATED) 2022-02-15 21:47:00 Loi Nazario versity of [facility] POCT GLUCOSE (AUTOMATED) 2022-02-15 16:34:00 Loi Nazario Uni versity of [facility] POCT GLUCOSE (AUTOMATED) 2022-02-15 16:34:00 Loi Nazario Uni versity of [facility] POCT GLUCOSE (AUTOMATED) 2022-02-15 12:23:00 Loi Nazario Uni versity of [facility] POCT GLUCOSE (AUTOMATED) 2022-02-15 12:23:00 Loi Nazario versity of [facility] COMP. METABOLIC PANEL 2022-02-15 08:11:00 Loi Nazario [facility] ([id number]) [facility] CBC WITH DIFF 2022-02-15 08:11:00 Loi Nazario [facility] LIPASE 2022-02-15 08:11:00 Loi Nazario [facility] COMP. METABOLIC PANEL 2022-02-15 08:11:00 Loi Nazario [facility] ([id number]) [facility] CBC WITH DIFF 2022-02-15 08:11:00 Loi Nazario [facility] LIPASE 2022-02-15 08:11:00 Loi Nazario [facility] POCT GLUCOSE (AUTOMATED) 2022-02-15 01:31:00 Loi Nazario versity of [facility] POCT GLUCOSE (AUTOMATED) 2022-02-15 01:31:00 Loi Nazario versity of [facility] POCT GLUCOSE (AUTOMATED) 2022-02-14 21:57:00 Loi Nazario Uni versity of [facility] POCT GLUCOSE (AUTOMATED) 2022-02-14 21:57:00 Loi Nazario versity of [facility] POCT GLUCOSE (AUTOMATED) 2022-02-14 17:02:00 Loi Nazario versity of [facility] POCT GLUCOSE (AUTOMATED) 2022-02-14 17:02:00 Loi Nazario [facility] POCT GLUCOSE (AUTOMATED) 2022-02-14 13:00:00 Loi Nazario [facility] POCT GLUCOSE (AUTOMATED) 2022-02-14 13:00:00 Loi Nazario [facility] BASIC METABOLIC PANEL (NA, 2022-02-14 09:00:00 Loi Nazario [facility] K, CL, CO2, GLUCOSE, BUN, Medica l Branch CREATININE, CA) CBC WITH DIFF 2022-02-14 09:00:00 Loi Nazario [facility] LIPASE 2022-02-14 09:00:00 Loi Nazario [facility] MAGNESIUM 2022-02-14 09:00:00 Loi Nazario [facility] HEPATIC FUNCTION PANEL 2022-02-14 09:00:00 Loi Nazario [facility] ([id number]) (ALB,T.PRO,BILI Medical Branch T,BU/BC,ALT,AST,ALK PHOS) BASIC METABOLIC PANEL (NA, 2022-02-14 09:00:00 Loi Nazario [facility] K, CL, CO2, GLUCOSE, BUN, Medica l Branch CREATININE, CA) CBC WITH DIFF 2022-02-14 09:00:00 Loi Nazario [facility] LIPASE 2022-02-14 09:00:00 Loi Nazario [facility] MAGNESIUM 2022-02-14 09:00:00 Loi Nazario [facility] HEPATIC FUNCTION PANEL 2022-02-14 09:00:00 Loi Nazario [facility] ([id number]) (ALB,T.PRO,BILI Medical Branch T,BU/BC,ALT,AST,ALK PHOS) POCT GLUCOSE (AUTOMATED) 2022-02-14 01:53:00 Loi Nazario [facility] POCT GLUCOSE (AUTOMATED) 2022-02-14 01:53:00 Loi Nazario [facility] POCT GLUCOSE (AUTOMATED) 2022-02-13 21:55:00 Loi Nazario [facility] POCT GLUCOSE (AUTOMATED) 2022-02-13 21:55:00 Loi Nazario [facility] POCT GLUCOSE (AUTOMATED) 2022-02-13 16:28:00 Loi Nazario [facility] POCT GLUCOSE (AUTOMATED) 2022-02-13 16:28:00 Loi Nazario [facility] POCT GLUCOSE (AUTOMATED) 2022-02-13 12:29:00 Loi Nazario [facility] POCT GLUCOSE (AUTOMATED) 2022-02-13 12:29:00 Loi Nazario [facility] GLYCOSYLATED HEMOGLOBIN 2022-02-13 09:47:00 Loi Nazario [facility] (A1C) Medical [place] GLYCOSYLATED HEMOGLOBIN 2022-02-13 09:47:00 Loi Nazario [facility] (A1C) [facility] POCT GLUCOSE (AUTOMATED) 2022-02-13 01:09:00 Loi Nazario [facility] POCT GLUCOSE (AUTOMATED) 2022-02-13 01:09:00 Loi Nazario [facility] POCT GLUCOSE (AUTOMATED) 2022-02-12 21:01:00 Loi Nazario [facility] POCT GLUCOSE (AUTOMATED) 2022-02-12 21:01:00 Loi Nazario [facility] POCT GLUCOSE (AUTOMATED) 2022-02-12 16:07:00 Loi Nazario [facility] POCT GLUCOSE (AUTOMATED) 2022-02-12 16:07:00 Loi Nazario [facility] COMP. METABOLIC PANEL 2022-02-12 14:10:00 Loi Nazario [facility] ([id number]) Medical Branch COMP. METABOLIC PANEL 2022-02-12 14:10:00 Loi Nazario [facility] ([id number]) Medical Branch LIPASE 2022-02-11 20:23:00 Loi Nazario [facility] LIPASE 2022-02-11 20:23:00 Loi Nazario [facility] US ABDOMEN LIMITED 2022-02-11 02:42:32 Loi Nazario [facility] US ABDOMEN LIMITED 2022-02-11 02:42:32 Loi Nazario [facility] COMP. METABOLIC PANEL 2022-02-10 18:50:00 лОьга Dunn [facility] ([id number]) [facility] LIPID PANEL (85360)(TOTAL 2022-02-10 18:50:00 Ольга Dunn [facility] CHOLESTEROL, [facility] TRIGLYCERIDES, HDL) COMP. METABOLIC PANEL 2022-02-10 18:50:00 Ольга Dunn [facility] ([id number]) Medical Branch LIPID PANEL (81357)(TOTAL 2022-02-10 18:50:00 Ольга Dunn [facility] CHOLESTEROL, [facility] TRIGLYCERIDES, HDL) CT ABDOMEN PELVIS W 2022-02-10 18:21:00 Ольга Dunn [facility] CONTRAST [facility] CT ABDOMEN PELVIS W 2022-02-10 18:21:00 Ольга Dunn [facility] CBC WITH DIFF 2022-02-10 17:52:00 Ольга Dunn [facility] URINALYSIS 2022-02-10 17:52:00 Ольга Dunn [facility] LIPASE 2022-02-10 17:52:00 Ольга Dunn [facility] CBC WITH DIFF 2022-02-10 17:52:00 Ольга Dunn [facility] URINALYSIS 2022-02-10 17:52:00 Ольга Dunn [facility] LIPASE 2022-02-10 17:52:00 Ольга Dunn [facility] CONSENT/REFUSAL FOR 2022-02-10 17:06:46 Doctor Unassigned, [facility] DIAGNOSIS AND TREATMENT [place] [facility] CONSENT/REFUSAL FOR 2022-02-10 17:06:46 [facility] DIAGNOSIS AND TREATMENT [place] [facility] XR THORACIC SPINE 2 VW 2021-11-26 20:17:33 Mao Small [facility] XR LUMBAR SPINE AP LATERAL 2021-11-26 20:16:49 Mao Small [facility] FLEXION AND EXTENSION XR KUB KIDNEY URETER 2021-11-26 20:16:18 Mao Small [facility] BLADDER XR ELBOW >3 VW RIGHT 2021-11-04 19:40:26 Requisition, Paper [facility] XR HAND 3+ VW LEFT 2021-11-04 19:40:26 Requisition, Paper [facility] ASSIGNMENT OF BENEFITS 2021-11-04 18:48:26 Doctor Martine, [facility] Name Medical [place] REFERRAL- REQUEST/RESPONSE 2021-09-23 05:01:00 Doctor Farley [facility] [place] Medical [place] US PELVIS LIMITED 2021-06-16 15:56:11 Olga Major [facility] POCT MOLECULAR FLU 2021-04-29 19:38:00 Johnson De La Garza [facility] Medical [place] ASPIRATE OR ABSCESS 2021-03-16 18:28:00 Olga Major [facility] CULTURE(AEROBIC/ANAEROBIC) Medic al Branch INCISION AND DRAINAGE OF 2021-03-16 17:43:00 Olga Major [facility] ABSCESS Medical [place] EXTERNAL PROVIDER RECORDS 2021-03-11 06:01:00 Doctor Farley [facility] [place] [facility] EXTERNAL PROVIDER RECORDS 2021-03-11 06:01:00 Doctor Farley [facility] [place] [facility] Plan of Care Planned Activity Planned Date Details Comments Source Future Scheduled 2023-02-15 [facility] Test 17:20:53 malignant neoplasm of colon (procedure) [code = 720104707] Future Scheduled 2023-02-15 [facility] Test 17:20:53 malignant neoplasm of colon (procedure) [code = 707032122] Future Scheduled 2023-02-15 [facility] Test 17:20:53 malignant neoplasm of colon (procedure) [code = 577405316] Future Scheduled 2023-02-15 Pneumococcal Vaccine: [facility] Hospital Test 17:20:53 Pediatrics (0 to 5 Years) and At-Risk Patients (6 to 64 Years) (1 - PCV) [code = Pneumococcal Vaccine: Pediatrics (0 to 5 Years) and At-Risk Patients (6 to 64 Years) (1 - PCV)] Future Scheduled 2023-02-15 Hepatitis C screening [facility] Hospital Test 17:20:53 (procedure) [code = 237359870] Future Scheduled 2023-02-15 [facility] Test 17:20:53 malignant neoplasm of cervix (procedure) [code = 561330864] Future Scheduled 2023-02-15 BREAST CANCER [facility] Test 17:20:53 SCREENING [code = BREAST CANCER SCREENING] Future Scheduled 2023-02-15 Screening for [facility] Test 17:20:53 malignant neoplasm of colon (procedure) [code = 557165670] Future Scheduled 2023-02-15 [facility] Test 17:20:53 malignant neoplasm of colon (procedure) [code = 108074668] Future Scheduled 2023-02-15 [facility] Test 17:20:53 malignant neoplasm of lung (procedure) [code = 915883713] Future Scheduled 2023-02-15 SHINGLES VACCINES (1 [facility] Test 17:20:53 of 2) [code = SHINGLES VACCINES (1 of 2)] Future Scheduled 2023-02-15 COVID-19 VACCINE (4 - [facility] Test 17:20:53 season) [code = COVID-19 VACCINE (4 - season)] Future Scheduled 2023-02-15 INFLUENZA VACCINE (#1) [facility] Test 17:20:53 [code = INFLUENZA VACCINE (#1)] Future Scheduled 2022-09-17 Pneumococcal Vaccine: [facility] Test 12:12:11 Pediatrics (0 to 5 Years) and At-Risk Patients (6 to 64 Years) (1 - PCV) [code = Pneumococcal Vaccine: Pediatrics (0 to 5 Years) and At-Risk Patients (6 to 64 Years) (1 - PCV)] Future Scheduled 2022-09-17 Hepatitis C screening [facility] Test 12:12:11 (procedure) [code = 418559994] Future Scheduled 2022-09-17 Screening for [facility] Test 12:12:11 malignant neoplasm of cervix (procedure) [code = 818171626] Future Scheduled 2022-09-17 BREAST CANCER [facility] Test 12:12:11 SCREENING [code = BREAST CANCER SCREENING] Future Scheduled 2022-09-17 COLONOSCOPY SCREENING [facility] Test 12:12:11 [code = COLONOSCOPY SCREENING] Future Scheduled 2022-09-17 Screening for [facility] Test 12:12:11 malignant neoplasm of lung (procedure) [code = 120175103] Future Scheduled 2022-09-17 SHINGLES VACCINES (1 [facility] Test 12:12:11 of 2) [code = SHINGLES VACCINES (1 of 2)] Future Scheduled 2022-09-17 COVID-19 VACCINE (4 - [facility] Hospital Test 12:12:11 Booster for Pfizer series) [code = COVID-19 VACCINE (4 - Booster for Pfizer series)] Future Scheduled 2022-09-17 INFLUENZA VACCINE [facility] Test 12:12:11 [code = INFLUENZA VACCINE] Future Scheduled 2022-07-25 Pneumococcal Vaccine: [facility] Hospital Test 10:39:27 Pediatrics (0 to 5 Years) and At-Risk Patients (6 to 64 Years) (1 - PCV) [code = Pneumococcal Vaccine: Pediatrics (0 to 5 Years) and At-Risk Patients (6 to 64 Years) (1 - PCV)] Future Scheduled 2022-07-25 Hepatitis C screening [facility] Test 10:39:27 (procedure) [code = 717302131] Future Scheduled 2022-07-25 [facility] Test 10:39:27 malignant neoplasm of cervix (procedure) [code = 700483690] Future Scheduled 2022-07-25 BREAST CANCER [facility] Test 10:39:27 SCREENING [code = BREAST CANCER SCREENING] Future Scheduled 2022-07-25 COLONOSCOPY SCREENING [facility] Test 10:39:27 [code = COLONOSCOPY SCREENING] Future Scheduled 2022-07-25 [facility] Test 10:39:27 malignant neoplasm of lung (procedure) [code = 470595567] Future Scheduled 2022-07-25 SHINGLES [facility]IN[facility] Test 10:39:27 of 2) [code = SHINGLES VACCINES (1 of 2)] Future Scheduled 2022-07-25 COVID-19 VACCINE (4 - [facility] Hospital Test 10:39:27 Booster for Pfizer series) [code = COVID-19 VACCINE (4 - Booster for Pfizer series)] Future Scheduled 2022-07-25 INFLUENZA VACCINE [facility] Test 10:39:27 [code = INFLUENZA VACCINE] Encounters Start End Encounter Admission Attending Care Care Encounter Source Date/Time Date/Time Type Type Clinicians Facility Department ID 2023-01-11 2023-01-11 Outpatient DAYAMI Calero [id number] [facility] 12:00:00 12:00:[address] [place] [address] 2022-11-15 2022-11-15 Outpatient R RADIOLOGY [facility] [id number] Univers 11:21:15 23:59:[address] [facility] 2022-11-15 2022-11-15 Hospital Radiology [facility] 1.2.840.114 [id number] Univers 11:20:00 23:59:00 Encounter [place] 350.1.13.10 ity [facility] 4.2.7.2.686 [facility] [id number] [facility] 800 Branch 2022-11-11 2022-11-11 Office [place], 1.2.840.1 [id number] Methodi 10:30:00 11:49:55 Visit Jl Martinez50.1.[address] 3.430.2.7 Hospit a .3.918437 l .8 2022-11-11 2022-11-11 Outpatient [facility] [id number] [place] 00:00:00 00:00:[address] 2022-11-11 2022-11-11 Outpatient [facility] [id number] [place] 00:00:00 00:00:[address] 2022-09-29 2022-09-29 Outpatient R RADIOLOGY [facility] [id number] Univers 12:30:31 23:59:[address] [facility] 2022-09-29 2022-09-29 Hospital Radiology [facility] 1.2.840.114 [id number] Univers 12:30:31 23:59:00 Encounter [place] 350.1.13.10 ity [facility] 4.2.7.2.686 [facility] [id number] [facility] 806 Branch 2022-08-12 2022-08-12 [facility], 1.2.840.1 [id number] Methodi 10:25:21 23:59:00 Encounter Mao Hodges 91780.1.[address] 3.430.2.7 Hospit a .3Debbi077438 l .8 2022-08-12 2022-08-12 [facility], 1.2.840.1 [id number] Methodi 10:25:21 23:59:00 Encounter Mao Hodges 82411.1.[address] 3.430.2.7 Hospit a .3.050164 l .8 2022-08-12 2022-08-12 [facility], 1.2.840.1 [id number] Methodi 10:25:09 23:59:00 Encounter Mao Martinez50.1.[address] 3.430.2.7 Hospit a .3.910359 l .8 2022-08-12 2022-08-12 [facility], 1.2.840.1 [id number] 10855 Methodi 10:25:09 23:59:00 Encounter Mao Chapman.1.[address] 3.430.2.7 Hospit a .3.735488 l .8 2022-08-12 2022-08-12 [facility], 1.2.840.1 [id number] Methodi 10:24:57 10:24:57 Encounter Mao Martinez50.1.[address] 3.430.2.7 Hospit a .3.073585 l .8 2022-08-12 2022-08-12 [facility], 1.2.840.1 [id number] Methodi 10:24:57 10:24:57 Encounter Mao Martinez50.1.[address] 3.430.2.7 Hospit a .3.606381 l .8 2022-08-12 2022-08-12 Transcribe [facility], 1.2.840.1 [id number] Methodi 00:00:00 00:00:00 Orders Mao Hodges 17982.1.[address] 3.430.2.7 Hospit a .3.593342 l .8 2022-08-12 2022-08-12 Travel 1.2.840.1 1.2.297.827 [id number] Methodi 00:00:00 00:00:[address] 3.430.2.7 0.2.7.3.698 Ho spita .3.682407 084.8 l .8 2022-08-12 2022-08-12 Transcribe [place], 1.2.840.1 [id number] Methodi 00:00:00 00:00:00 Orders Mao Hodges 96628.1.[address] 3.430.2.7 Hospit a .3.067969 l .8 2022-08-12 2022-08-12 Transcribe [place], 1.2.840.1 [id number] Methodi 00:00:00 00:00:00 Orders Mao Hodges 56186.1.[address] 3.430.2.7 Hospit a .3.865016 l .8 2022-08-12 2022-08-12 Travel 1.2.840.1 1.2.359.976 [id number] Methodi 00:00:00 00:00:[address] 3.430.2.7 0.2.7.3.698 Ho spita .3.083574 084.8 l .8 2022-08-12 2022-08-12 Transcribe [place], 1.2.840.1 [id number] Methodi 00:00:00 00:00:00 Orders Mao Hodges 77037.1.[address] 3.430.2.7 Hospit a .3.717847 l .8 2022-07-25 2022-07-25 Orders Rickey, 1.2.840.1 [id number] Methodi 00:00:00 00:00:00 Only Dina 82681.1.[address] 3.430.2.7 Hospit a .3.891983 l .8 2022-07-25 2022-07-25 Orders Rickey, 1.2.840.1 [id number] Methodi 00:00:00 00:00:00 Only Dina 21773.1.[address] 3.430.2.7 Hospit a .3.872678 l .8 2022-07-10 2022-07-10 Emergency X , [facility] ERT [id number] Univers 19:06:00 23:07:00 JUAN MIGUEL poe of [facility] 2022-07-10 2022-07-[address] [facility] 1.2.504.507 [id number] Univers 19:06:00 23:07:00 Juan Miguel RODRIGUEZ 350.1.13.10 i ty [facility] 4.2.7.2.686 [facility] [id number] [address] 2022-07-01 2022-07-01 Hospital [facility], 1.2.840.1 [id number] Methodi 08:37:42 23:59:00 Encounter Dina 23849.1.[address] 3.430.2.7 Hospit a .3.010790 l .8 2022-07-01 2022-07-01 Travel 1.2.840.1 1.2.220.033 [id number] Methodi 00:00:00 00:00:[address] 3.430.2.7 0.2.7.3.698 Ho spita .3.703990 084.8 l .8 2022-07-01 2022-07-01 Hospital [facility], 1.2.840.1 [id number] [place] 00:00:00 00:00:00 Encounter DINA 34033.1.[address] .3.456221 .8 2022-07-01 2022-07-01 Travel 1.2.840.1 1.2.312.581 [id number] Methodi 00:00:00 00:00:[address] 3.430.2.7 0.2.7.3.698 Ho spita .3.457233 084.8 l .8 2022-06-29 2022-06-29 Transcribe [facility], 1.2.840.1 [id number] 627 [id number] Methodi 00:00:00 00:00:00 Orders Dina 12521.1.[address] 3.430.2.7 Hospit a .3.352231 l .8 2022-06-29 2022-06-29 Orders Rickey, 1.2.840.1 [id number] 8449 Methodi 00:00:00 00:00:00 Only Dina 46837.1.[address] 3.430.2.7 Hospit a .3.481182 l .8 2022-06-29 2022-06-29 Transcribe Rickey, 1.2.840.1 [id number] 137 [id number] Methodi 00:00:00 00:00:00 Orders Dina [address]15.1.[address] 3.430.2.7 Hospit a .3.386824 l .8 2022-06-29 2022-06-29 Orders Rickey, 1.2.840.1 [id number] 971818 5894 Methodi 00:00:00 00:00:00 Only Dina 03381.1.[address] 3.430.2.7 Hospit a .3.344986 l .8 2022-06-28 2022-06-28 Office [place], 1.2.840.1 [id number] 71054 53413 Methodi 10:30:00 11:15:54 Visit [facility] [address]645.1.[address] 3.430.2.7 Hospit a .3.711600 l .8 2022-06-28 2022-06-28 Office Bridget, 1.2.840.1 [id number] 45448 Methodi 10:30:00 11:15:54 Visit [facility] 95148.1.[address] 3.430.2.7 Hospit a .3.443415 l .8 2022-06-23 2022-06-23 Patient Nealjustinritesh, 1.2.840.1 [id number] 32848 Methodi 00:00:00 00:00:00 Outreach Zandra 53845.1.[address] 3.430.2.7 Hospit a .3.812516 l .8 2022-06-23 2022-06-23 Travel 1.2.840.1 1.2.094.377 6122 164309 Methodi 00:00:00 00:00:[address] 3.430.2.7 0.2.7.3.698 Ho spita .3.264273 084.8 l .8 2022-06-23 2022-06-23 Patient Annette, 1.2.840.1 [id number] 02861 78163 Methodi 00:00:00 00:00:00 Outreach Zandra 52030.1.[address] 3.430.2.7 Hospit a .3.987212 l .8 2022-06-23 2022-06-23 Travel 1.2.840.1 1.2.934.813 4437 491871 Methodi 00:00:00 00:00:[address] 3.430.2.7 0.2.7.3.698 Ho spita .3.950986 084.8 l .8 2022-06-16 2022-06-22 [facility] Tatianna De La Torre 1.2.840. 1 [id number] Methodi 13:16:00 12:49:00 Encounter Inocencia Herrera 20078.1.[address] 3.430.2.7 Hospit a .3.739453 l .8 2022-06-16 2022-06-22 [facility] Tatianna De La Torre 1.2.840. 1 [id number] Methodi 13:16:00 12:49:00 Encounter Inocnecia Herrera. 89588.1.[address] 3.430.2.7 Hospit a .3.427820 l .8 2022-06-20 2022-06-20 [facility], 1.2.840.1 [id number] 44314 27709 Methodi 23:59:00 23:59:00 Encounter Dina 24856.1.[address] 3.430.2.7 Hospit a .3.076845 l .8 2022-06-20 2022-06-20 Hospital [facility], 1.2.840.1 [id number] 32780 34573 Methodi 23:59:00 23:59:00 Encounter Dina 13796.1.[address] 3.430.2.7 Hospit a .3.609206 l .8 2022-06-17 2022-06-17 Telephone Leonor, 1.2.840.1 [id number] 2099 908578 Methodi 00:00:00 00:00:[address] 3.430.2.7 Hospit a .3.670880 l .8 2022-06-17 2022-06-17 Telephone Leonor, 1.2.840.1 [id number] 2099 520254 Methodi 00:00:00 00:00:[address] 3.430.2.7 Hospit a .3.606842 l .8 2022-06-16 2022-06-16 Orders Rickey, 1.2.840.1 [id number] 351200 9846 Methodi 00:00:00 00:00:00 Only Dina 91564.1.[address] 3.430.2.7 Hospit a .3.816335 l .8 2022-06-16 2022-06-16 Orders Rickey, 1.2.840.1 [id number] 175139 2221 Methodi 00:00:00 00:00:00 Only Dina 12004.1.[address] 3.430.2.7 Hospit a .3.207566 l .8 2022-06-16 2022-06-16 Orders Rickey, 1.2.840.1 279068454 723954 4841 Methodi 00:00:00 00:00:00 Only Dina 15038.1.[address] 3.430.2.7 Hospit a .3.596499 l .8 2022-06-16 2022-06-16 Orders Rickey, 1.2.840.1 600441527 701052 6910 Methodi 00:00:00 00:00:00 Only Dina 97300.1.[address] 3.430.2.7 Hospit a .3.971834 l .8 2022-06-16 2022-06-16 Orders Rickey, 1.2.840.1 906773029 563863 4961 Methodi 00:00:00 00:00:00 Only Dina 89865.1.[address] 3.430.2.7 Hospit a .3.107219 l .8 2022-06-16 2022-06-16 Orders Rickey, 1.2.840.1 [id number] 902796 5062 Methodi 00:00:00 00:00:00 Only Dina 78620.1.[address] 3.430.2.7 Hospit a .3.370997 l .8 2022-06-14 2022-06-14 Orders Rickey, 1.2.840.1 046450821 700335 3010 Methodi 00:00:00 00:00:00 Only Dina 14819.1.[address] 3.430.2.7 Hospit a .3.999409 l .8 2022-06-14 2022-06-14 Orders Rickey, 1.2.840.1 327003600 049172 1143 Methodi 00:00:00 00:00:00 Only Dina 81762.1.[address] 3.430.2.7 Hospit a .3.904885 l .8 2022-06-13 2022-06-13 Orders Rickey, 1.2.840.1 069282923 079865 8604 Methodi 00:00:00 00:00:00 Only Dina 89030.1.[address] 3.430.2.7 Hospit a .3.356932 l .8 2022-06-13 2022-06-13 Travel 1.2.840.1 1.2.887.841 9172 196553 Methodi 00:00:00 00:00:[address] 3.430.2.7 0.2.7.3.698 Ho spita .3.622706 084.8 l .8 2022-06-13 2022-06-13 Orders Rickey, 1.2.840.1 487583554 110939 4344 Methodi 00:00:00 00:00:00 Only Dina 79699.1.[address] 3.430.2.7 Hospit a .3.008551 l .8 2022-06-13 2022-06-13 Travel 1.2.840.1 1.2.383.244 6132 462295 Methodi 00:00:00 00:00:[address] 3.430.2.7 0.2.7.3.698 Ho spita .3.208969 084.8 l .8 2022-06-08 2022-06-08 Outpatient R RADIOLOGY [facility] 88789 58210 Univers 16:09:26 23:59:[address] [facility] 2022-06-08 2022-06-08 Hospital Radiology [facility] 1.2.840.114 100 985752 Univers 16:09:26 23:59:00 Encounter JENNIFER 350.1.13.10 ity of [place] [id number] [facility] [address] 2022-06-07 2022-06-07 Outpatient R [facility] LYN [id number] 8460 Univers 12:06:00 15:11:00 OLGA ity of [facility] 2022-06-07 2022-06-07 [facility] 1.2.671.110 1233 89622 Univers 12:06:00 15:11:00 Encounter Olga Keita [place] 350.1.13.10 ity of [facility] 4.[place].7.2.[place] [id number] [facility] [address] 2022-06-07 2022-06-07 Surgery [facility] 1.2.840.114 04500 1561 Univers 13:39:00 14:57:00 Olga A [place] 350.1.13.10 i ty of [facility] 4.[place].7.2.[place] [id number] [facility] [address] 2022-05-27 2022-05-27 Patient Annette, 1.2.840.1 [id number] 96344 99928 Methodi 00:00:00 00:00:00 Outreach Zandra 27303.1.[address] 3.430.2.7 Hospit a .3.695318 l .8 2022-05-27 2022-05-27 Patient Annette 1.2.840.1 [id number] 41280 19623 Methodi 00:00:00 00:00:00 Outreach Zandra 57911.1.[address] 3.430.2.7 Hospit a .3.012282 l .8 2022-05-16 2022-05-26 [facility] Aric Keita. 1.2.840.1 91971 1011 [id number] Methodi 19:29:00 11:42:00 Encounter Susi Wade 63734.1.1 895 [facility] 3.430.2.7 [facility]ospita MaxinenmAndrew hayness K. .3.480091 l [facility] .8 [facility] 2022-05-16 2022-05-[address] [facility] 1.2.840.1 76564 1011 [id number] Methodi 19:29:00 11:42:00 Encounter Susi Wade 78399.1.1 895 [facility] 3.430.2.7 Hospita MaxinenmAndrew hayness K. .3.213909 l [facility] .8 Gurwinder Selby [facility] 2022-05-20 2022-05-20 Anesthesia Kemper, Monalisa [place] 1.2.840. 1 [id number] Methodi 10:28:00 13:29:00 Event Alissa Ulloa 28971.1.[address] 3.430.2.7 Hospit a .3.308652 l .8 2022-05-20 2022-05-20 Anesthesia Kemper, Monalisa Richmond 1.2.840. 1 069004523 [id number] Methodi 10:28:00 13:29:00 Event Tabatha Ulloayla Nadeen 00306.1.[address] 3.430.2.7 Hospit a .3.379165 l .8 2022-05-20 2022-05-20 Surgery Bindal, 1.2.840.1 [id number] 343535 2281 Methodi 10:00:00 12:25:[address] 3.430.2.7 Hospit a .3.416315 l .8 2022-05-20 2022-05-20 Surgery Bindal, 1.2.840.1 [id number] 605168 5175 Methodi 10:00:00 12:25:[address] 91932.1.[address] 3.430.2.7 Hospit a .3.292167 l .8 2022-05-16 2022-05-16 Travel 1.2.840.1 1.2.099.112 6335 355822 Methodi 00:00:00 00:00:[address] 3.430.2.7 0.2.7.3.698 Ho spita .3.109262 084.8 l .8 2022-05-16 2022-05-16 Travel 1.2.840.1 1.2.073.584 5011 296530 Methodi 00:00:00 00:00:[address] 3.430.2.7 0.2.7.3.698 Ho spita .3.277834 084.8 l .8 2022-04-29 2022-04-29 [facility] Bindor, 1.2.840.1 [id number] 46107 03801 Methodi 09:22:36 23:59:00 Encounter Mao Hodges 75243.1.[address] 3.430.2.7 Hospit a .3.205627 l .8 2022-04-29 2022-04-29 Hospital Bindor, 1.2.840.1 [id number] 06 Methodi 09:22:36 23:59:00 Encounter Mao Hodges 98704.1.[address] 3.430.2.7 Hospit a .3.327220 l .8 2022-04-29 2022-04-29 [facility], 1.2.840.1 [id number] Methodi 09:22:20 23:59:00 Encounter Mao Martinez50.1.[address] 3.430.2.7 Hospit a .3.572477 l .8 2022-04-29 2022-04-29 [facility], 1.2.840.1 [id number] Methodi 09:22:20 23:59:00 Encounter Mao Martinez50.1.[address] 3.430.2.7 Hospit a .3.485481 l .8 2022-04-29 2022-04-29 [facility], 1.2.840.1 [id number] Methodi 09:21:57 09:21:57 Encounter Mao Martinez50.1.[address] 3.430.2.7 Hospit a .3.623960 l .8 2022-04-29 2022-04-29 [facility], 1.2.840.1 [id number] Methodi 09:21:57 09:21:57 Encounter Mao Martinez50.1.[address] 3.430.2.7 Hospit a .3.507725 l .8 2022-04-29 2022-04-29 Travel 1.2.840.1 1.2.170.586 1233 222236 Methodi 00:00:00 00:00:[address] 3.430.2.7 0.2.7.3.698 Ho spita .3.378167 084.8 l .8 2022-04-29 2022-04-29 [facility] 1.2.840.1 [id number] 589 1593221 Methodi 00:00:00 00:00:00 Orders Mao Hodges 14740.1.[address] 3.430.2.7 Hospit a .3.237461 l .8 2022-04-29 2022-04-29 Travel 1.2.840.1 1.2.597.710 9692 171505 Methodi 00:00:00 00:00:[address] 3.430.2.7 0.2.7.3.698 Ho spita .3.219976 084.8 l .8 2022-04-29 2022-04-29 Transcribe Bindal, 1.2.840.1 [id number] 334 5062231 Methodi 00:00:00 00:00:00 Orders [place] K. 21767.1.[address] 3.430.2.7 Hospit a .3.618719 l .8 2022-04-19 2022-04-19 Patient Jolanta Gutiérrez 1.2.840.1 [id number] 21 [id number] Methodi 00:00:00 00:00:[address] 3.430.2.7 Hospit a .3.291371 l .8 2022-04-19 2022-04-19 Patient Jolanta Gutiérrez 1.2.840.1 [id number] 21 [id number] Methodi 00:00:00 00:00:[address] 3.430.2.7 Hospit a .3.646542 l .8 2022-04-17 2022-04-18 Emergency AyonRaul costa 1.2.840.1 1 [id number] [id number] Methodi 05:44:00 17:20:00 Nereida Bates 99074.1.[address] Awar, Elvia 3.430.2.7 H ospita .3.791923 l .8 2022-04-17 2022-04-18 Emergency Raul Ayon 1.2.840.1 1 16920562 [id number] Methodi 05:44:00 17:20:00 Nereida Bates 12438.1.[address] Awar, Elvia 3.430.2.7 H ospita .3.225064 l .8 2022-04-12 2022-04-12 Travel 1.2.840.1 1.2.682.897 7122 607118 Methodi 00:00:00 00:00:[address] 3.430.2.7 0.2.7.3.698 Ho spita .3.771316 084.8 l .8 2022-04-12 2022-04-12 Travel 1.2.840.1 1.2.536.673 9724 583000 Methodi 00:00:00 00:00:[address] 3.430.2.7 0.2.7.3.698 Ho spita .3.638276 084.8 l .8 2022-04-08 2022-04-08 Program Medical Director Addy, Adc Lab Main [facility] 1.2.8 40.114 [id number] Univers 14:30:00 14:45:00 Visit Ari Hopkins 350.1.13.10 ity [facility] 4.2.7.2.686 [facility] PROFESSIO [id number] Tn dical NAL 353 [facility] 2022-04-08 2022-04-08 Outpatient R KELLIE [facility] 80625 08301 Univers 14:30:00 14:30:00 ARI steffen [facility] 2022-04-05 2022-04-06 Emergency X [facility] ERT 1043 [id number] Univers 20:40:00 00:46:00 , EMILE steffen [facility] 2022-04-05 2022-04-06 Emergency [facility] 1.2.840.114 [id number] Univers 20:40:00 00:46:00 , Emile RODRIGUEZ 350.1.13.10 i ty [facility] 4.2.7.2.686 [place]AT[place] [id number] [facility] [address] [place] 2022-04-05 2022-04-05 Telephone Bridget, 1.2.840.1 [id number] Methodi 00:00:00 00:00:[address] 3.430.2.7 Hospit a .3.886049 l .8 2022-04-05 2022-04-05 Telephone Bridget 1.2.840.1 [id number] 435 [id number] Methodi 00:00:00 00:00:[address] 3.430.2.7 Hospit a .3.013507 l .8 2022-03-28 2022-03-28 [facility] 1.2.840.114 987 11512 Univers 08:17:08 23:59:00 Encounter [place] 350.1.13.10 ity of [facility] 4.2.7.2.686 [facility] [id number] [address] 2022-03-28 2022-03-28 [facility] 1.2.915.118 0347 6149 [facility] 08:00:00 08:16:00 Encounter Olga A [place] 350.1.13.10 ity of [place] 4.2.7.2.686 [facility] [id number] [address] 2022-03-23 2022-03-23 [facility] 1.2.418.612 7477 6630 [facility] 08:00:00 23:59:00 Encounter Olga A [place] 350.1.13.10 ity of [facility] 4.2.7.2.686 [facility] [id number] [address] 2022-03-16 2022-03-16 [facility] [id number] 7532 [facility] 00:00:00 00:00:00 OLGA ity of [facility] 2022-03-08 2022-03-08 Office Bridget 1.2.840.1 [id number] 19862 Methodgeorgina 10:00:00 11:30:57 Visit Jl Martinez50.1.[address] 3.430.2.7 Hospit a .3.429125 l .8 2022-03-08 2022-03-08 Outpatient [facility] [id number] [address] [place] [address] 00:00:00 00:00:[address] 2022-03-04 2022-03-04 Emergency X VANNESA [facility] ERT [id number] Univers 05:11:00 07:21:00 ABBEY [facility] 2022-03-04 2022-03-04 Emergency JacquelineFormerly [facility] 1.2.486.529 2368 6929 Univers 05:11:00 07:21:00 Abbey RODRIGUEZ 350.1.13.10 ity of [place] 4.[facility].7.2.[facility] [id number] [facility] [address] 2022-02-22 2022-02-22 Transition TALI Landeros 1.2.840.114 979 28795 Univers 00:00:00 00:00:00 of Care Guillermina Edgar ACEVEDO 350.1.13.10 i ty of [place]2.7.2.686 [place] [id number] [facility] [address] 2022-02-10 2022-02-20 Inpatient X LIZA [facility] [id number] Univers 12:16:00 16:54:00 KRISS [facility] 2022-02-10 2022-02-20 Hospital Ольга Dunn [facility] 1.2.84 0.114 [id number] Univers 12:16:00 16:54:00 Encounter Loi Nazario 350.1.13.10 ity of Kriss Farmer [place] 4.2.7.2.686 [facility] [id number] [facility] [address] 2022-02-17 2022-02-[address] [facility] 1.2.840.114 08772 522 Univers 14:15:00 17:17:00 Olga RODRIGUEZ 350.1.13.10 i ty of [place] 4.2.7.2.686 [place] SUR[place]ICAL [id number] [facility] [address] 2022-02-11 2022-02-11 Outpatient [facility] [id number] Univers 00:00:00 00:00:00 OLGA poe [facility] 2021-12-14 2021-12-14 Office [place], 1.2.840.1 [id number] 35252 89665 Methodi 11:30:00 12:14:20 Visit Jl Martinez50.1.[address] 3.430.2.7 Hospit a .3.945004 l .8 2021-11-26 2021-11-26 [facility], 1.2.840.1 [id number] Methodi 14:30:25 23:59:00 Encounter Mao Martinez50.1.[address] 3.430.2.7 Hospit a .3.031259 l .8 2021-11-26 2021-11-26 [facility], 1.2.840.1 [id number] Methodi 14:30:13 23:59:00 Encounter Mao Martinez50.1.[address] 3.430.2.7 Hospit a .3.861097 l .8 2021-11-26 2021-11-26 [facility], 1.2.840.1 [id number] Methodi 14:29:54 14:29:54 Encounter Mao Martinez50.1.[address] 3.430.2.7 Hospit a .3.963130 l .8 2021-11-26 2021-11-26 Travel 1.2.840.1 1.2.209.815 9975 232711 Methodi 00:00:00 00:00:[address] 3.430.2.7 0.2.7.3.698 Ho spita .3.417133 084.8 l .8 2021-11-26 2021-11-26 Transcribe [facility], 1.2.840.1 [id number] 907 [id number] Methodi 00:00:00 00:00:00 Orders Mao Hodges 56836.1.[address] 3.430.2.7 Hospit a .3.570712 l .8 2021-11-08 2021-11-08 Orders Minor, Ajia 1.2.840.1 [id number] 21 [id number] Methodi 00:00:00 00:00:[address] 3.430.2.7 Hospit a .3.667509 l .8 2021-11-04 2021-11-04 Outpatient R RADIOLOGY [facility] [id number] Univers 13:49:52 23:59:[address] [facility] 2021-11-04 2021-11-04 Hospital Radiology [facility] 1.2.840.114 950 10112 Univers 13:49:52 23:59:00 Encounter JENNIFER 350.1.13.10 ity of [facility] 4.2.7.2.686 [place] [facility] [phone] [facility] [address] 2021-11-04 2021-11-04 Orders Doctor JESSI 1.2.840.114 [id number] Univers 00:00:00 00:00:00 Only Unassigned, VLADIMIR 350.1.13.10 [place] of [place] [facility] 4.2.7.2.686 Khris as [id number] [facility] [address] 2021-11-02 2021-11-02 Orders Minor, Ajia 1.2.840.1 [id number] 21 [id number] Methodi 00:00:00 00:00:[address] 3.430.2.7 Hospit a .3.964088 l .8 2021-11-02 2021-11-02 Orders Minor, Ajia 1.2.840.1 [id number] 21 [id number] Methodi 00:00:00 00:00:[address] 3.430.2.7 Hospit a .3.068177 l .8 2021-09-28 2021-09-28 Outpatient R ANJELICA [facility] [id number] Univers 13:15:00 13:15:00 SHYANNE itsteffen [facility] 2021-09-28 2021-09-[address] [facility] 1.2.564.508 [id number] 6884 Univers 00:00:00 00:00:00 [facility] 350.1.13.10 it y of [place] 4.2.7.2.686 Khris as HUSSAIN?BLEA [id number] Tn eric GARCIA [address] [place] MEDICAL OFFICE BUILDING 2021-09-24 2021-09-24 Nurse Therapy, Clc Covid Infusion [facility] 1.2.840.114 [id number] Univers 13:30:00 14:30:00 Visit Geo Viera [facility] 350.1.13.10 ity of [place] 4.2.7.2.686 [place] [facility] [id number] [facility] [address] [place] OFFICE [facility] 2021-09-24 2021-09-24 Outpatient [facility] [id number] Univers 13:30:00 13:30:00 GEO ity of [facility] 2021-09-23 2021-09-23 Orders Doctor JESSI 1.2.840.114 [id number] Univers 00:00:00 00:00:00 Only Unassigned, VLADIMIR 350.1.13.10 ity of [place] [facility] 4.2.7.2.686 Khris as [id number] [facility] [address] [place] 2021-06-16 2021-06-16 Outpatient R PEDRITO [facility] [id number] Univers 09:23:52 23:59:00 OLGA ity of [facility] 2021-06-16 2021-06-16 [facility] 1.2.469.503 0826 0009 Univers 09:00:00 23:59:00 Encounter Olga RODRIGUEZ 350.1.13.10 ity of [place] 4.2.7.2.686 [place] [facility] [id number] [facility] [address] [place] 2021-05-01 2021-05-01 Letter JESSI Casas 1.2.840.114 [id number] Univers 00:00:00 00:00:00 (Out) Fabiola GILBERT 350.1.13.10 it y of HOSPITAL 4.2.7.2.686 Khris as [id number] [facility] [address] [place] 2021-05-01 2021-05-01 Telephone JESSI [place] 1.2.804.551 7553 9721 Univers 00:00:00 00:00:00 Cherelle GILBERT 350.1.13.10 it y of HOSPITAL 4.2.7.2.686 Khris as [id number] [address] 2021-04-29 2021-04-29 Outpatient R FREDERIC [facility] [id number] Univers 13:00:00 14:30:49 JOHNSON ity [facility] 2021-04-29 2021-04-29 Urgent Jay Coleman [facility] 1.2.840. 114 [id number] Univers 13:00:00 13:20:00 Care Johnson De La Garza [facility] 350.1.13.10 ity of [place] 4.2.7.2.686 Khris as HUSSAIN?BLEA [id number] [facility] [address] [place] MEDICAL OFFICE [facility] 2021-03-16 2021-03-[address] [facility] LYN [id number] Univers 09:42:00 14:40:00 OLGA ity [facility] 2021-03-16 2021-03-16 [facility] 1.2.759.752 3275 2598 Univers 09:42:00 14:40:00 Encounter Olga Neela [place] 350.1.13.10 ity of [facility] 4.2.7.2.686 [place] SURGICAL [id number] [facility] [address] [place] 2021-03-16 2021-03-16 Surgery [facility] 1.2.840.114 [id number] Univers 11:30:00 13:12:00 Olga A [place] 350.1.13.10 i ty of [place] 4.2.7.2.686 [place] SURGICAL [id number] [facility] [address] [place] 2021-03-15 2021-03-15 Outpatient [facility] [id number] Univers 09:00:00 09:00:00 OLGA ity [facility] 2021-02-22 2021-02-22 Office [facility] 1.2.840.114 [id number] 45 Univers 13:48:33 14:03:33 Visit [facility] 350.1.13.10 it y of [place] [id number] Khris as HUSSAIN?BLEA [phone] Tn eric [facility] [address] [place] MEDICAL OFFICE [facility] 2021-02-22 2021-02-22 Outpatient [facility] [id number] Univers 13:45:00 13:45:00 SHYANNE steffen [facility] 2021-02-22 2021-02-22 Outpatient [facility] [id number] Univers 13:45:00 13:45:00 SHYANNE steffen [facility] 2021-02-22 2021-02-22 Outpatient [facility] [id number] Univers 13:45:00 13:45:00 SHYANNE [facility] 2020-12-30 2020-12-30 Office [facility] 1.2.840.114 [id number] Univers 13:41:38 13:56:38 Visit Shyanne [facility] [id number] it y of [place] [id number] Khris as Hussain?Blea [phone] Tn eric garcia [address] Office [facility] 2020-12-30 2020-12-30 Outpatient [facility] [id number] Univers 13:30:00 13:30:[facility] 2020-12-17 2020-12-17 Telephone [facility] [id number] Univers 00:00:00 00:00:00 Shyanne S Health [id number] it y of [place] [id number] Khris as Hussain?Blea [phone] Tn eric garcia [address] Office [facility] 2020-12-16 2020-12-16 [facility] 1.2.840.114 [id number] Univers 13:30:00 23:59:00 Encounter Shyanne [facility] [id number] ity of [place] [id number] Khris as Hussain?Blea [phone] Tn eric garcia [address] [facility] Office [facility] 2020-12-16 2020-12-16 Office Shyanne Dejesus [facility] 1.2.840.114 [id number] Univers 13:19:36 13:34:36 Visit [facility] [id number] ity of [place] [id number] Khris as Hussain?Blea [phone] Tn eric [address] [facility] 2020-12-16 2020-12-16 Outpatient Sweta [facility] [id number] [facility] 13:15:00 13:15:00 WHIT poe [facility] 2020-11-02 2020-11-02 Outpatient VIKI, [facility] [id number] [place] 00:00:00 00:00:00 SHAYAN 077 [facility] 2020-11-02 2020-11-02 Outpatient VIKI, [facility] [id number] [place] 00:00:00 00:00:00 SHAYAN 923 [facility] 2020-07-13 2020-07-13 Outpatient ELIZABETH [facility] [id number] [place] 00:00:00 00:00:00 MAL 017 [facility] 2020-07-13 2020-07-13 Outpatient ELIZABETH [facility] [id number] [place] 00:00:00 00:00:00 MAL 602 [facility] 2020-06-24 2020-06-30 Inpatient ELIZABETH, [facility] [id number] [place] 00:00:00 00:00:00 MAL 322 [facility] 2020-06-22 2020-06-22 Outpatient ELIZABETH [facility] [id number] [place] 00:00:00 00:00:00 MAL 004 [facility] 2020-06-04 2020-06-04 Outpatient ELIZABETH [facility] [id number] [place] 00:00:00 00:00:00 MAL 482 [facility] 2020-06-04 2020-06-04 Outpatient ELIZABETH [facility] [id number] [place] 00:00:00 00:00:00 MAL 470 [facility] 2020-06-04 2020-06-04 Outpatient ELIZABETH [facility] [id number] [place] 00:00:00 00:00:00 MAL 871 [facility] 2020-04-14 2020-04-14 Tom BOWEN 1.2.840.114 [id number] 00:00:00 00:00:00 Only Unassigned, VLADIMIR [id number] [place] [facility] [phone] [id number] 2020-04-14 2020-04-14 Orders Doctor JESSI 1.2.840.114 [id number] [facility] 00:00:00 00:00:00 Only Unassigned, VLADIMIR [id number] ity of [place] [facility] [id number] Khris [phone] [place] [address] [place] 2020-04-06 2020-04-06 Outpatient VIKI, [facility] [id number] [place] 00:00:00 00:00:00 SHAYAN 651 [facility] 2020-04-06 2020-04-06 Outpatient ELIZABETH, [facility] [id number] [place] 00:00:00 00:00:00 MAL 061 [facility] 2020-03-29 2020-03-[address] [facility] 1.2.840.114 [id number] 19:21:00 21:29:00 Anjana Rodriguez [id number] [place] [id number] [place] [id number] [facility] 2020-03-29 2020-03-[address] [facility] 1.2.840.114 [id number] Univers 19:21:00 21:29:00 Anjana Rodriguez [id number] ity of [place] [id number] [place] [facility] [phone] [facility] [address] [place] [address] 2020-03-29 2020-03-[address] [facility] ERT [id number] Univers 19:21:00 21:29:00 FOLUSHO ity of [facility] 2020-03-26 2020-03-[address] [facility] [id number] 00:00:00 00:00:00 Shyanne S Health 350.1.13.10 Surgical 4.2.7.2.686 Specialti [id number] es 198 [place] 2020-03-26 2020-03-[address] [facility] [id number] Univers 00:00:00 00:00:00 Shyanne S Health 350.1.13.10 it y of Surgical 4.2.7.2.686 Khris as Specialti [id number] Tn dical es 198 [facility] 2020-03-16 2020-03-[address] [facility] 1.2.840.114 [id number] 15:09:26 23:59:00 Encounter Whit Rodriguez 350.1.13.10 [place] 4.2.7.2.686 [place] [id number] [facility] 2020-03-16 2020-03-16 [facility] 1.2.840.114 [id number] Univers 15:09:26 23:59:00 Encounter Whit Rodriguez 350.1.13.10 ity of [place] 4[place]2.7.2.686 [place] [id number] [address] 2020-03-16 2020-03-16 [facility] [id number] Univers 15:09:26 23:59:00 WHIT cristinesteffen [facility] 2020-03-16 2020-03-[address] [facility] 1.2.840.114 [id number] 15:41:11 15:56:11 Visit Shyanne [facility] 350.1.13.10 Surgical 4.2.7.2.686 Specialti [phone] [address] 2020-03-16 2020-03-16 Office Shyanne Dejesus [facility] 1.2.840.114 [id number] Univers 15:41:11 15:56:11 Visit SandersTimurig Tracy Danilo 350.1.13.10 ity of Surgical 4.2.7.2.686 Khris as Specialti [id number] Tn dical es 198 [facility] 2020-03-16 2020-03-16 Outpatient R [facility] [id number] Univers 15:00:00 15:00:00 WHIT poe [facility] 2020-03-12 2020-03-[address] [facility] 1.2.840.114 [id number] Univers 00:00:00 00:00:00 Whit [facility] 350.1.13.10 it y of Surgical 4.2.7.2.686 Khris as Specialti [phone] Tn dical es 198 [facility] 2019-11-28 2019-11-28 Hospital [facility] 1.2.840.114 [id number] Univers 10:41:16 23:59:00 Encounter Whit Carrasco 350.1.13.10 ity of Surgical 4.2.7.2.686 Khris as Specialti [id number] Me dical es 809 [facility] 2019-11-28 2019-11-28 Outpatient [facility] [id number] Univers 10:41:16 23:59:00 [facility] 2019-11-28 2019-11-28 Office [facility] [id number] Univers 10:16:15 10:52:41 Visit Whit Carrasco 350.1.13.10 it y of Surgical 4.2.7.2.686 Khris as Specialti [phone] Tn dical es 198 [facility] 2019-11-28 2019-11-28 Outpatient [facility] [id number] Univers 10:15:00 10:15:00 [facility] 2019-11-27 2019-11-27 Outpatient R [facility] [id number] Univers 15:30:00 15:30:00 [facility] Results Test Description Test Time Test Comments Results Result Sour e Comments XR Kub Kidney 2022-07-24 EXAMINATION: XR KUB Me thodist Ureter Bladder 1 KIDNEY [facility]RETER Hospita l 16:33:49 BLADDER CLINICAL HISTORY: G89.4 Chronic pain syndrome, chronic pain syndrome COMPARISON: CT abdomen pelvis 07/01/2022 IMPRESSION: 1.Partially visualized thoracolumbar posterior instrumented fusion and anterior interbody fusion with lumbosacral/biiliac instrumented fusion. No acute fracture.2.No obstructive bowel gas pattern. No free intraperitoneal air. Metallic clips scattered about the right hemiabdomen. Retained baclofen pump catheter tubing along the right lower back better seen on prior CT. [id number] X[facility] Lumbar Spine 2022-07-24 EXAMINATION: XR Meth odist Ap Lateral 1 LUMBAR SPINE AP Hospital Flexion And 16:06:01 LATERAL FLEXION AND Extension EXTENSION CLINICAL HISTORY: G89.4 Chronic pain syndrome, chronic pain syndrome COMPARISON: April 29, 2022 IMPRESSION: 4 views of lumbar spine were obtained. Stable beaooujv-qaqcgz-zndf oiliac fusion hardware without evidence of loosening or failure.Levoscoliosi s of the midlumbar spine.Generalized osteopenia.Stable compression deformities of the L3 and L4 vertebral bodies.No abnormal motion on flexion-extension views. [id number] XR Thoracic 2022-07-24 EXAMINATION: XR Methodis t Spine 3 Vw 1 THORACIC SPINE 3 VW Hospi tamra 15:54:09 CLINICAL HISTORY: G89.4 Chronic pain syndrome, chronic pain syndrome COMPARISON: Thoracic radiograph 06/22/2022 IMPRESSION: Posterior spinal fusion extending from T3 to the imaged lumbar spine. The imaged hardware appears intact.Moderate right convex thoracic scoliosis with Langley angle measuring approximately 27 degrees.Mild exaggeration of the normal upper thoracic kyphosis.Interverteb ral disc space narrowing along the left aspects of the mid to lower thoracic levels.Diffuse osteopenia is suspected.Vertebral body heights appear maintained. [id number] LIPASE 2022-07-11 01:52:02 Test Item Value Reference Range Interpretation Comme nts LIPASE (test code = 0493851145) 79 U/L 0-220 Lab Interpretation (test code = 27806-7) Normal [facility] MET[facility]OLIC PAN[facility] (12854)2022-07-11 01:33:40 Test Item Value Reference Range Interpretation Comments NA (test code = 138 mmol/L 135-145 6398313017) K (test code = 3.9 mmol/L 3.5-5.0 6428120943) CL (test code = 105 mmol/L 98-108 9158373503) CO2 TOTAL (test code = 28 mmol/L 23-31 1299055128) AGAP (test code = 5 2-16 8615459194) BUN (test code = 13 mg/dL 7-23 8915421692) GLUCOSE (test code = 126 mg/dL 70-110 H 2077302128) CREATININE (test code = 0.69 mg/dL 0.50-1.04 5429150925) TOTAL BILI (test code = 0.4 mg/dL 0.1-1.0 3156550750) CALCIUM (test code = 8.5 mg/dL 8.6-10.6 L 9746611610) T PROTEIN (test code = 7.0 g/dL 6.3-8.2 7406780592) ALBUMIN (test code = 3.6 g/dL 3.5-5.0 4341974303) ALK PHOS (test code = 62 U/L 34-122 2882362942) ALTv (test code = 13 U/L 5-35 1742-6) AST(SGOT) (test code = 13 U/L 13-40 3603392051) eGFR (test code = 87.4 mL/min/1.73m2 4576494328) NIMISHA (test code = NIMISHA) Association of [...] tests). Lab Interpretation Abnormal (test code = 88767-7) [facility] WITH [id number] 01:25:37 Test Item Value Reference Range Interpretation Comments WBC (test code = 6.99 See_Comment [Automated 9990-2) message] The sy stem which generated this [...] RDW-SD (test code = 46.1 fL 39.0-49.9 99416-5) RDW-CV (test code = 13.6 % 12.0-15.5 788-0) PLT (test code = 181 See_Comment [Automated 777-3) message] The sy stem which generated this result transmitted reference range : 166 - 358 10*3/ ?L. The reference r cesar was not used to interpret this result as normal/abnormal . MPV (test code = 9.6 fL 9.5-12.9 42645-8) NRBC/100 WBC (test 0.0 See_Comment [Automat ed code = 5421148046) message] The system which generated this result transmitted reference range : 0.0 - 10.0 /100 WBCs. The refer ence range was not u sed to interpret th is result as normal/abnormal . NRBC x10^3 (test code See_Comment [Auto mated = 5915586015) message] The s ystem which generated this result transmitted reference range : 10*3/?L. The reference range was not used to interpret this result as normal/abnormal . GRAN MAT (NEUT) % 58.0 % (test code = 770-8) IMM GRAN % (test code 0.60 % = 8663081241) LYMPH % (test code = 31.2 % 736-9) MONO % (test code = 6.3 % 5905-5) EOS % (test code = 3.6 % 713-8) BASO % (test code = 0.3 % 706-2) GRAN MAT x10^3(ANC) 4.06 10*3/uL 1.88-7.09 (test code = 5829258459) IMM GRAN x10^3 (test 0.04 10*3/uL 0.00-0.06 code = 1494020793) LYMPH x10^3 (test code 2.18 10*3/uL 1.32-3.29 = 731-0) MONO x10^3 (test code 0.44 10*3/uL 0.33-0.92 = 742-7) EOS x10^3 (test code = 0.25 10*3/uL 0.03-0.39 711-2) BASO x10^3 (test code 0.01-0.07 = 704-7) Lab Interpretation Abnormal (test code = 24706-1) [facility] [id number] 00:14:00 Test Item Value Reference Range Interpretation Comments AFB culture No growth Specimen isolate (test after 6 weeks InformationSp ecimen code = 543-9) of Source: WoundS pecimen incubation. Site: Abdomen: Wound Cultures (from intrathecal pain pump site) [facility] Abdomen Pelvis W Fcgglmcy2087-26-40 17:24:02EXAMINATION: CT ABDOMEN PELVIS W CONTRAST CLINICAL HISTORY: L03.311 Cellulitis of abdominal wall, L03.311 COMPARISON: CT abdomen pelvis dated May 16, 2022. TECHNIQUE: CT of the abdomen and pelvis with intravenous contrast. Sagittal and coronal computerized reformatted images were also obtained. CTimaging was performed with iterative reconstruction techniques and/or automated exposure control to reduce radiation dose. FINDINGS: Streak artifacts from posterior fusion hardware slightly limits evaluation. LOWER THORAX: Normal. HEPATOBILIARY: No focal hepatic lesions. No biliary ductal dilation. Status post cholecystectomy. SPLEEN: There is mildly to moderately. The spleen is 14.3 cm in length. PA NCREAS: No focal masses or ductal dilation. ADRENALS: No adrenal nodules. KIDNEYS: No hydronephrosis, stones, or solid masses. GI TRACT: No bowel distention or wall thickening. Minimal left-sided diverticulosis. No diverticulitis. No obstruction. Normal appendix. PERITONEUM/RETROPERITONEUM: No free air or fluid. No lymphadenopathy. VASCULATURE: Abdominal aorta is nonaneurysmal. Minimal scattered arterial calcifications. PELVIC ORGANS/BLADDER: Status post hysterectomy. Urinary bladder is unremarkable. BONES AND SOFT TISSUES: Interval removal of pump device with retained intrathecal catheter coursingalong the right flank. Fluid collection now measures 7.5 x 2.8 x 4.6 cm, improved from previously 11.6 x 6.2 x 8.1 cm. There is mild surrounding inflammatory stranding and overlying subcutaneous tissuethickening. IMPRESSION: 1.Retained intrathecal catheter with interval removal of pump device at the r ight lower quadrant. 2.Right lower quadrant fluid collection has decreased in size, now measuring upto 7.5 cm from previously 11.6 cm. [facility]-[id number] Dictated and approved by resident physician in radiology/fellow: Tom Walsh M.D. I, Maddie Zamorano MD, personally reviewed the images and resident's/fellow's findings and agree with the final report.[facility] Thoracic Spine 1 [id number] 16:01:59EXAMINATION: XR THORACIC SPINE 1 CLINICAL HISTORY: Mid-back pain, check the position of dave COMPARISON: 04/29/2022. IMPRESSION: Single lateral projection provided. Status post posterior spinal instrumentation T3 to the iliac wings off image.Visualized hardware appears intact with solid osseous integration within the limitations of single projection. [facility]-[id number] [facility] Lumbar Spine 1 [id number] 16:00:35EXAMINATION: XR LUMBAR SPINE 1 CLINICAL HISTORY: Low back pain increased fracture risk, check the position of the dave COMPARISON: None IMPRESSION: 2 lateral projections provided. Status post L5-S1 intervertebral discectomy and posterior spinal instrumentation from the iliac wings to the thoracic spine off image.Visualized hardware appears intact, with solid osseous integration within the limitations of single view. [facility][id number] Cervical Spine 1 [id number] 15:59:46 EXAMINATION: XR CERVICAL SPINE 1 CLINICAL HISTORY: Neck pain chronic no prior imaging, check the position of dave COMPARISON: None IMPRESSION: Single lateral projection provided. C1-C5 vertebrae visualized.Mild intervertebral disc height loss with 1 mm retrolisthesis C3 on C4.Visualized vertebral body heights are preserved.No prevertebral soft tissue swelling. [facility][id number] HospitalMidline Imadyjmvi9077-17-32 23:31:28Magdalena Vail RN 06/21/2022 5:38 PMMidline Insertion Date/Time: 06/21/2022 5:31 PMPerformed by: Magdalena Vail, RNAuthorized by: Inocencia Herrera MD Consent: Consent obtained: Written Consent given by: Patient Risks discussed: Arterial puncture, incorrect placement, nerve damage, infection, bleeding, superficial thrombus and deep vein thrombus Alternatives discussed: Referral, observation and alternative treatmentUniversal protocol: Procedure explained and questions answeredto patient or proxy's satisfaction: yes Relevant documents present and verified: yes Test results available and properly labeled: yes Imaging studies available: yes Required blood products, implants, devices, and special equipment available: yes Site/side marked: yes Immediately prior to procedure, a time out was called: yes Patient identity confirmed: Hospital-assigned identification number, verbally with patient and arm bandPre-procedure details: Hand hygiene: Hand hygiene performed prior to insertion Sterile barrier technique: All elements of maximal sterile technique followed Skin preparation: 2% chlorhexidine and ChloraPrep Skin preparation agent: Dried prior to procedure Anesthesia (see MAR for exact dosages): Anesthesia method: Local infiltration Local anesthetic: Lidocaine 1% w/o epi Route administered: SubcutaneousMidLine Placement Details: Extremity Circumference Upper (cm): 34 Extremity Circumference Site: 34 Patient position: Flat 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 IV therapy Location: Left brachial Catheter Lumen(s): Single lumen Catheter size: 3 Fr Catheter to vein ratio: 25MidLine Characteristics: Catheter Brand: BD External Catheter Length (cm): 0 Internal Catheter Length (cm): 19 Total Catheter Length (cm): 19 Catheter Lot Number: [id number] Catheter Expiration Date: 4Procedure details: Ultrasound guidance: yes Sterile ultrasound techniques: Sterile gel and sterile probe covers were used Number of attempts: 1 Number of MidLine kits used during procedure: 1 Extra guide wire required?: No Purpose of procedure: Midline Placement Patency/Placement: Flushes without difficulty, flushed with 10 mL normal saline and positive blood return MidLine placed utilizing ultrasound-guidedModified Seldinger Technique: Yes Dressing/Securement: Dressing dry and intact and antimicrobial dressing dry and intactPost-procedure details: Patient tolerance of procedure: Tolerated well, no immediate complicationsBanner Del [facility] Center [id number] 16:00:00 Test Item Value Reference Range Interpretation Comments Anaerobic No anaerobic Specimen culture isolate organisms InformationS pecimen (test code = isolated. Source: FluidSp ecimen 62619-8) Site: [facility] [id number] 16:00:00 Test Item Value Reference Range Interpretation Comments Anaerobic No anaerobic Specimen culture isolate organisms InformationS pecimen (test code = isolated. Source: FluidSp ecimen 83060-4) Site: [facility] [id number] 16:00:00 Test Item Value Reference Range Interpretation Comments Anaerobic No anaerobic Specimen culture isolate organisms InformationS pecimen (test code = isolated. Source: FluidSp ecimen 00010-5) Site: [facility] Lumbar Puncture by Dcmyvzeca5305-99-86 22:05:50EXAMINATION: IR LUMBAR PUNCTURE CLINICAL HISTORY: meningitis COMPARISON: None TECHNIQUE: Informed consent and a timeout was performed. The patient's lower back was prepped and draped in the usual sterile fashion. Fluoroscopy was used for image guidance for lumbar puncture. FINDINGS: 1% lidocaine was used for local anesthesia. Under direct fluoroscopic guidance, access to the thecal sac was made with a 22-gauge spinal needle at the L4 level. A total of approximately 16 cc of clear colorless CSF was removed without difficulty. The patient tolerated the procedure well. There were no complications. Thesample was sent to the laboratory for analysis as requested. Total fluoroscopy time was less than 1 s econd. Total radiation dose is 18.6 mGy = Ka,r IMPRESSION: Successful fluoroscopic guided lumbar puncture as detailed above. [facility][id number] [facility]'s [facility] System Needle Npmtxqlott5924-59-53 17:40:59EXAMINATION: US NEEDLE ASPIRATION CLINICAL HISTORY: abdominal abscess SUPERVISING PHYSICIAN: Dr. Neal TECHNIQUE: The risks, benefits, and alternatives were discussed with the patient and written informed consent was obtained.A site for needle injury was selected and the skin was prepped and draped in the usual sterile fashion. After local administration of 1% buffered lidocaine, a 5 Finnish one-step needle catheter system was placed under ultrasound guidance into the right lower quadrant fluid collection. 2 cc serosanguineous fluid was aspirated from the collection. Despite good catheter placement, additional fluid was unable to be aspirated. The collection under ultrasound examination gave the appearance of a complex loculated partially solidified fluid collection. The sample was sent for culture and Gram stain. Conscious sedation: Local anesthesia only.. The patient was monitored throughout theprocedure and in the postprocedure recovery area. EBL: Minimal Complications: None. Assistants: None. IMPRESSION:Technically successful right lower quadrant fluid collection aspiration [facility]-[id number] Health [facility] Abdominal [id number] 23:23:39EXAMINATION: US ABDOMINAL LIMITED CLINICAL HISTORY: abd abscess COMPARISON: None. TECHNIQUE: Limitedsonographic evaluation of the abdomen was performed . IMPRESSION: There is a anechoic structure in the right lower quadrant subcutaneous tissues which is near the incision site and measures 5.8 x 0.9 x1.3 cm. This appears to have an echogenic wall and could represent an abscess or hematoma. Recommendclinical correlation and ultrasound follow-up as appropriate. This collection is contiguous with inci erendira defect anteriorly. [facility] ([facility] RNA [Presence] in Respiratory specimen by SHANNAN with probe [id number] 15:06:31 Test Item Value Reference Range Interpretation Comments SARS-CoV-2 (COVID-19) RNA Not detected [Presence] in Respiratory specimen by SHANNAN with probe detection (test code = 40977-0) Whether patient is employed in a Unknown healthcare setting (test code = 47679-2) Whether the patient has symptoms Unknown related to condition of interest (test code = 19049-6) Whether the patient was Unknown hospitalized for condition of interest (test code = 52859-0) Whether the patient was admitted Unknown to intensive care unit (ICU) for condition of interest (test code = 15489-1) Whether patient resides in a Unknown congregate care setting (test code = 82760-7) status (test code = Unknown 15749-3) Date and time of symptom onset Unknown (test code = 12119-1) [facility] wruygolpm6167-01-97 21:53:56Magdalena Mosley, RN 05/25/2022 3:58 PMPICC insertion Date/Time: 05/25/2022 3:53 PMPerformed by: Magdalena Vail, RNAuthorized by: Anuel Riojas MD Consent: Consent obtained: Written Consent given by: Patient Risks discussed: Arterial puncture, incorrect placement, nerve damage, pneumothorax, infection, bleeding, superficial thrombus and deep vein thrombus Alternatives discussed: R eferral, observation and alternative treatmentUniversal protocol: Procedure explained and questions answered to patient or proxy's satisfaction: yes Relevant documents present and verified: yes Test results available and properly labeled: yes Imaging studies available: yes Required blood products, implants, devices, and special equipment available: yes Site/side marked: yes Immediately prior to procedure, a time out was called: yes Patient identity confirmed: Hospital-assigned identification number,verbally with patient and arm bandPre- procedure details: Hand hygiene: Hand hygiene performed prior to insertion Sterile barrier technique: All elements of maximal sterile technique followed Skin preparation: 2% chlorhexidine and ChloraPrep Skin preparation agent: Completely dried prior to procedure Anesthesia (see MAR for exact dosages): Anesthesia method: Local infiltration Local anesthetic: Lidocaine 1% w/o epi Route administered: SubcutaneousPICC Line Placement Details: Extremity Circumference Upper (cm): 34 Extremity Circumference Site: 34 Patient position: Flat 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 IV therapy Location: Right brachial Catheter Lumens: Double lumen Catheter size: 4 Fr Catheter to vein ratio: 25PICC Characteristics: Catheter Brand: BD External Catheter Length (cm): 0 Internal Catheter Length (cm): 42 Total Catheter Length (cm): 42 Catheter Lot Number: [id number] Catheter Expiration Date:4Procedure details: Ultrasound guidance: yes Sterile ultrasound techniques: Sterile gel and sterile probe covers were used Number of attempts: 1 Number of PICC kits used during procedure: 1 Extra guide wire required?: No Purpose of procedure: PICC Placement Successful PICC Placement: yes Patency/Placement: Flushes without difficulty, flushed with 10 mL normal saline and positive blood return Dressing/Securement: Dressing dry and intact and antimicrobial dressing dry and intact Number of guidewires used: 1 Number of guidewires removed: 1Post-procedure details: Patient tolerance of procedure:Tolerated well, no immediate complicationsFungus [id number] 20:41:00 Test Item Value Reference Range Interpretation Comments Fungus smear No fungi Specimen (test code = observed. InformationSpec imen Source: 1443) WoundSpecimen S ite: Abdomen: Wound Cultures (from intrathec al pain pump site) [facility] [id number] 20:41:00 Test Item Value Reference Range Interpretation Comments Fungus smear No fungi Specimen (test code = observed. InformationSpec imen Source: 1443) WoundSpecimen S ite: Abdomen: Wound Cultures (from intrathec al pain pump site) [facility] [id number] 20:41:00 Test Item Value Reference Range Interpretation Comments Fungus smear No fungi Specimen (test code = observed. InformationSpec imen Source: 1449) WoundSpecimen S ite: Abdomen: Wound Cultures (from intrathec al pain pump site) [facility] ljvwi3229-07-08 14:26:00 Test Item Value Reference Range Interpretation Comments AFB stain No acid fast Specimen (test code = bacilli (AFB) InformationSpe cimen 676-7) seen. Source: WoundSp ecimen Site: Abdomen: Wound Cultures (from intrathecal pain pump site) [facility] [id number] 14:26:00 Test Item Value Reference Range Interpretation Comments AFB stain No acid fast Specimen (test code = bacilli (AFB) InformationSpe cimen 676-7) seen. Source: WoundSp ecimen Site: Abdomen: Wound Cultures (from intrathecal pain pump site) [facility] [id number] 14:26:00 Test Item Value Reference Range Interpretation Comments AFB stain No acid fast Specimen (test code = bacilli (AFB) InformationSpe cimen 676-7) seen. Source: WoundSp ecimen Site: Abdomen: Wound Cultures (from intrathecal pain pump site) [facility] tjgeoxm5805-74-58 02:54:00 Test Item Value Reference Range Interpretation Comments POC glucose (test code 150 mg/dL 65-99 H Opera tor Name: = 43193-8) Abiodun Everett ID : [id number] able: RN Notified Lab Interpretation Abnormal (test code = 01684-4) [facility] [id number] 02:54:00 Test Item Value Reference Range Interpretation Comments POC glucose (test code 150 mg/dL 65-99 H Opera tor Name: = 63734-1) Abiodun Everett ID : [id number] able: RN Notified Lab Interpretation Abnormal (test code = 52270-1) [facility] ygwiakz9244-60-44 02:54:00 Test Item Value Reference Range Interpretation Comments POC glucose (test code 150 mg/dL 65-99 H Opera tor Name: = 30368-0) Abiodun Kohlere ID : [id number] able: RN Notified Lab Interpretation Abnormal (test code = 66439-7) [facility] [place] [facility] [id number] 19:14:07Fluoroscopic imaging requested. Radiologist was not present during the examination. Please see nubia awad's chart for radiation dose and fluoro time. Separate report will be issued by the physician performing the procedure.[facility]2023-01-27 16:36:00Alissa Ulloa CRNA 05/20/2022 11:17 AMAirway Date/Time: 05/20/2022 10:36 AM Location: OR Performed by: resident/ANNA/AAResident/ANNA/AA: Alissa Ulloa CRNAAuthorized by: Monalisa Giordano MDUrgency: ElectivePreoxygenated with 100% O2: Yes Mask Ventilation: Easy maskFinal Airway Type: Endotracheal airwayFinal Endotracheal Airway: ETTCuffed: Yes Technique Used: Direct laryngoscopyDevices/Methods Used in Placement: Intubating styletInsertion Site: OralBlade Type: MillerLaryngoscope Blade/Videolaryngoscope Blade Size: 2ETT Size (mm): 7.0Cuff at minimum occlusion pressure: Yes Measured from: LipsETT to Lips (cm): 21Placement Verified by: CO2 detection, direct visualization and equal breath sounds Laryngoscopic view: Grade I - full view of glottisNumber of Attempts at Approach: 1 To OR.Monitors on. Pre O2. Iv induction. See airway note. +ETCO2, continuous. Atraumatic placement. Dentures taken out preop.CT Head Wo Kphxvkdv2005-19-19 12:18:27EXAMINATION: CT HEAD WO CONTRAST CLINICAL HISTORY: Neuro deficit acute stroke suspected COMPARISON: None TECHNIQUE: Noncontrast enhanced images of the brain were obtained from the skull base to the vertex. Both soft tissue and bone reconstruction algorithms were performed. Coronal and sagittal reformatted images were generated. CT imaging was performed with iterative reconstruction technique and/or automated exposure control to reduce radiation dose. FINDINGS:No acute intracranial hemorrhage or extraaxial collection. Lopez-white matter interface is maintained. No hydrocephalus or midline shift. Cerebellar tonsils terminate in normal position. Except for trace mucosal thickening, the paranasal sinuses and tympanomastoid cavities are clear.Orbits are unremarkable. No acute skull fracture or aggressive bony lesion. IMPRESSION: No evidence of acute intracranial abnormality. Attempts were made to contact the health care provider for discussion of the negative stroke results but the provider was not av ailable at the time of exam reporting. The negative CT head results were then finalized at 36:17 AM in order to make them available for all clinicians to review within 20 minutes of exam completion in order to maintain compliance. [id number] [id number] 09:25:00 Test Item Value Reference Range Interpretation Comments Urine culture (test SEE COMMENT Bacteriu abraham screen code = 4561537) negative. [facility] [id number] 09:25:00 Test Item Value Reference Range Interpretation Comments Urine culture (test SEE COMMENT Bacteriu abraham screen code = 4976712) negative. [facility] [id number] 09:25:00 Test Item Value Reference Range Interpretation Comments Urine culture (test SEE COMMENT Bacteriu abraham screen code = 6517881) negative. [facility] [Presence] in Respiratory specimen by SHANNAN with probe [id number] 23:30:57 Test Item Value Reference Range Interpretation Comments SARS-CoV-2 (COVID-19) RNA Not detected [Presence] in Respiratory specimen by SHANNAN with probe detection (test code = 93961-0) Whether patient is employed in a Unknown healthcare setting (test code = 78726-2) Whether the patient has symptoms Unknown related to condition of interest (test code = 31367-5) Whether the patient was Unknown hospitalized for condition of interest (test code = 72541-2) Whether the patient was admitted Unknown to intensive care unit (ICU) for condition of interest (test code = 05555-3) Whether patient resides in a Unknown congregate care setting (test code = 50955-5) status (test code = Unknown 05997-6) Date and time of symptom onset Unknown (test code = 59989-5) [facility] [id number] 16:03:54 EXAMINATION: XR THORACIC SPINE 2 VW CLINICAL HISTORY: G89.29 Other chronic pain, pain COMPARISON: Thoracic spine x-ray exam dated April 17, 2020 IMPRESSION: Frontal and lateral views of the thoracicspine again shows fusion hardware extending from the T3 level down through the lumbar spine. There is leftward curvature at T4 and broad-based rightward curvature centered at T9. The hardware appears in similar position to the prior exam. There is no compression fracture identified. There is mild anterolisthesis of T2 again noted. There is some tortuosity of aorta. No significant change from prior exam identified. [facility]-[id number]2022-12-28 00:25:21 Test Item Value Reference Range Interpretation Comments Ventricular rate (test 58 code = 253) Atrial rate (test code 58 = 255) TN interval (test code 172 = 266) QRSD [...] of 17-APR-2022 12:36,-No significant change was found- [address]2022-12-28 00:25:21 Test Item Value Reference Range Interpretation Comments Ventricular rate (test 58 code = 253) Atrial rate (test code 58 = 255) TN interval (test code 172 = 266) QRSD [...] of 17-APR-2022 12:36,-No significant change was found- [facility] 12 [id number] 00:25:21 Test Item Value Reference Range Interpretation Comments Ventricular rate (test 58 code = 253) Atrial rate (test code 58 = 255) TN interval (test code 172 = 266) QRSD [...] of 17-APR-2022 12:36,-No significant change was found- [facility] 2 Or 3 [id number] 21:38:25EXAMINATION: XR LUMBAR SPINE 2 OR 3 VW CLINICAL HISTORY: Back Pain COMPARISON: 11/26/2021. IMPRESSION:2 views lumbar spine are interpreted. Again noted is posterior spinal fusion extending from the thoracic region to the bilateral sacroiliac joints. No hardware failure or loosening is seen. Multilevel bony fusion is suggested. Hardware and osteopenia diminishes characterization of osseous detail. Intra thecal catheter is noted. The pump overlies the right iliac bone. Cholecystectomy clips are present.[facility]-[id number] HospitalCT Thoracic Spine Wo [id number] 14:02:40EXAMINATION: CT THORACIC SPINE WO CONTRAST CLINICAL HISTORY: back pain COMPARISON: None. TECHNIQUE: Axial helical CT images throughout the THORACIC spine were performed without contrast. Sagittal and co emile reformatted images were generated. CT scans are performed using radiation dose reduction techniques. Technical factors are evaluated and adjusted to ensure appropriate moderation of exposure. Automated dose management technology is applied to adjust radiation exposure while achieving a highly diagnostic quality image. FINDINGS: There is posterior element instrumentation and fusion with moderateleft pedicle screws and posterior interconnecting rods with overlay bone graft. There are no significant fluid collections. There is no evidence of hardware fracture. There is no acute compression fracture. There are no paravertebral fluid collections. IMPRESSION: Scoliosis related posterior element instrumentation and fusion graft no definite thoracic hardware fracture. No fluid collections or spinal stenosis. No definite acute compression fracture [id number] Wo [id number] 14:00:29 EXAMINATION: CT ABDOMEN PELVIS WO CONTRAST CLINICAL HISTORY: 56 years Female abd pain back pain TECHNIQUE: Multiple axial images of the abdomen and pelvis were obtained without intravenous administration of iodinated contrast. Sagittal and coronal computerized reformatted images were also obtained. The lack of intravenous contrast reduces the sensitivity of detecting solid organ disease. CT imaging was performed with iterative reconstruction techniques and/or automated exposure control to reduce radiation dose. COMPARISON: None. IMPRESSION: LOWER THORAX:Minimal dependent atelectatic changes are present at the left lung base. No acute consolidations or effusions. ABDOMEN AND PELVIS:Liver: No focal mass. Normal hepatic contour.Gallbladder/Biliary: Status post cholecystectomy. No intra or extrahepatic biliary ductal dilatation.Spleen: No mass. No splenomegaly. Pancreas: No mass or duct dilatation.Adrenal Glands: No mass.Kidneys/Ureters: No mass, calculus, or hydronephrosis.Vasculature: Minimal aortoiliac atherosclerotic disease without evidence of aneurysm.Lymph nodes: No enlarged retroperitoneal, mesenteric or pelvic lymphadenopathy.GI tract/Abdominal wall: Normal appendix. A few scattered diverticular noted in the descending and sigmoid colon. There is no evidence of acute diverticulitis. No evidence of intestinal obstruction or free intraperitoneal air. Mesentery, omentum, & peritoneum:No ascites or focal fluid collections. No mass.Retroperitoneum: No mass or hematoma. Reproductive organs: Status post hysterectomy. No adnexal masses.Urinary bladder: Decompressed urinary bladder is grossly unremarkable. BONES AND SOFT TISSUES: Postoperative changes are present in the spine. There is severe levoscoliosis of the mid lumbar spine. There are no suspicious bony abnormalities. A pain pumpoverlies the right abdomen. There are small amount of subcutaneous fluid and gas surrounding the pain pump may be related to recent placement. The spinal catheter is present in the mid lumbar spine. SUMMARY:1.Extensive postoperative changes related to scoliosis repair are noted throughout the visualized thoracolumbar spine and pelvis. A pain pump overlies the anterior right abdomen. There is a small amount of subcutaneous fluid and gas surrounding the pain pump and may be related to recent instrument ation. Correlation with clinical examination is recommended.2.Status post cholecystectomy.3.Minimal descending and sigmoid colon diverticulosis without evidence of diverticulitis.4.Status post hysterectomy. [id number] XxmvymvjJRZQ-VvP-5 (COVID-19) RNA [Presence] in Respiratory specimen by SHANNAN with probe [id number] 10:28:41 Test Item Value Reference Range Interpretation Comments SARS-CoV-2 (COVID-19) RNA Not detected [Presence] in Respiratory specimen by SHANNAN with probe detection (test code = 68986-9) Whether patient is employed in a Unknown healthcare setting (test code = 41084-2) Whether the patient has symptoms Unknown related to condition of interest (test code = 78912-4) Whether the patient was Unknown hospitalized for condition of interest (test code = 89734-2) Whether the patient was admitted Unknown to intensive care unit (ICU) for condition of interest (test code = 38256-7) Whether patient resides in a Unknown congregate care setting (test code = 06202-5) status (test code = Unknown 79513-8) Date and time of symptom onset Unknown (test code = 06485-8) [facility] [id number] 19:24:53 Test Item Value Reference Range Interpretation Comments APTT Patient (test See_Comment [Automat ed code = 3173-2) message] The system which generated this result transmitted reference range : 23 - 38 Seconds . The reference range was not used to interpr et this result as normal/abnormal . NIMISHA (test code = NIMISHA) The [facility] patient population mean normal value for aPTT is 30 seconds. Lab Interpretation Normal (test code = 57918-3) [facility] / [id number] 19:21:46 Test Item Value Reference Range Interpretation [...] tions. Lab Interpretation (test Normal code = 75487-0) [facility] WITH [id number] 19:04:14 Test Item Value Reference Range Interpretation [...] (test code = 50.7 fL 39.0-49.9 H 00561-9) RDW-CV (test code = 14.6 % 12.0-15.5 788-0) PLT (test code = See_Comment [Automated 777-3) message] The sy stem which generated this result transmitted reference range : 166 - 358 10*3/ ?L. The reference r cesar was not used to interpret this result as normal/abnormal . MPV (test code = 9.3 fL 9.5-12.9 L 92851-4) NRBC/100 WBC (test See_Comment [Automat ed code = 3828080778) message] The system which generated this result transmitted reference range : 0.0 - 10.0 /100 WBCs. The refer ence range was not u sed to interpret th is result as normal/abnormal . NRBC x10^3 (test code See_Comment [Auto mated = 7553452471) message] The s ystem which generated this result transmitted reference range : 10*3/?L. The reference range was not used to interpret this result as normal/abnormal . GRAN MAT (NEUT) % 50.0 % (test code = 770-8) IMM GRAN % (test code 0.30 % = 0925665984) LYMPH % (test code = 40.4 % 736-9) MONO % (test code = 6.0 % 5905-5) EOS % (test code = 3.0 % 713-8) BASO % (test code = 0.3 % 706-2) GRAN MAT x10^3(ANC) 3.36 10*3/uL 1.88-7.09 (test code = 9899684857) IMM GRAN x10^3 (test 0.00-0.06 code = 0700033871) LYMPH x10^3 (test code 2.71 10*3/uL 1.32-3.29 = 731-0) MONO x10^3 (test code 0.40 10*3/uL 0.33-0.92 = 742-7) EOS x10^3 (test code = 0.20 10*3/uL 0.03-0.39 711-2) BASO x10^3 (test code 0.01-0.07 = 704-7) Lab Interpretation Abnormal (test code = 14739-9) [facility] GLUCOSE (AUTOMATED)2022-02-18 21:44:59 Test Item Value Reference Range Interpretation Comments POCT GLU (test code = 3816088910) 98 mg/dL 70-110 Lab Interpretation (test code = Normal 52973-8) [facility] GLUCOSE (AUTOMATED)2022-02-18 16:34:29 Test Item Value Reference Range Interpretation Comments POCT GLU (test code = 6174261781) 128 mg/dL 70-110 H Lab Interpretation (test code = Abnormal 70642-9) [facility] GLUCOSE (AUTOMATED)2022-02-18 16:34:29 Test Item Value Reference Range Interpretation Comments POCT GLU (test code = 7895222354) 128 mg/dL 70-110 H Lab Interpretation (test code = Abnormal 32967-9) [facility] GLUCOSE (AUTOMATED)2022-02-18 12:43:53 Test Item Value Reference Range Interpretation Comments POCT GLU (test code = 2904111038) 115 mg/dL 70-110 H Lab Interpretation (test code = Abnormal 07534-5) [facility] GLUCOSE (AUTOMATED)2022-02-18 12:43:53 Test Item Value Reference Range Interpretation Comments POCT GLU (test code = 5222270248) 115 mg/dL 70-110 H Lab Interpretation (test code = Abnormal 89791-6) [facility] (07748[facility] (ALB,T.PRO,BILI T,BU/BC,ALT,AST,ALK PHOS)2022-02-18 10:37:06 Test Item Value Reference Range Interpretation Comments TOTAL BILI (test code = 1178944535) 0.9 mg/dL 0.1-1.1 BILI UNCON (test code = 7623161410) 0.2 mg/dL 0.1-1.1 BILI CONJ (test code = 2395695847) 0.0 mg/dL 0.0-0.3 T PROTEIN (test code = 8588206568) 7.9 g/dL 6.3-8.2 ALBUMIN (test code = 7645233203) 3.8 g/dL 3.5-5.0 ALK PHOS (test code = 3554807803) 89 U/L 34-122 ALTv (test code = 1742-6) 30 U/L 5-35 AST(SGOT) (test code = 5804350632) 33 U/L 13-40 Lab Interpretation (test code = Normal 71150-7) [facility] (NA, K, CL, CO2, GLUCOSE, BUN, CREATININE, CA)2022-02-18 10:37:06 Test Item Value Reference Range Interpretation Comments NA (test code = 135 mmol/L 135-145 3757096619) K (test code = 4.1 mmol/L 3.5-5.0 3326941762) CL (test code = 97 mmol/L 98-108 L 5201785724) CO2 TOTAL (test code = 28 mmol/L 23-31 5698602922) AGAP (test code = 2-16 1362730883) BUN (test code = 9 mg/dL 7-23 7944305562) GLUCOSE (test code = 146 mg/dL 70-110 H 6353513348) CREATININE (test code = 0.53 mg/dL 0.50-1.04 8542032539) CALCIUM (test code = 8.3 mg/dL 8.6-10.6 L 0287107938) eGFR (test code = mL/min/1.73m2 8994317301) NIMISHA (test code = NIMISHA) Association of [...] tests). Lab Interpretation Abnormal (test code = 13263-1) [facility] (71754) (ALB,T.PRO,BILI T,BU/BC,ALT,AST,ALK PHOS)2022-02-18 10:37:06 Test Item Value Reference Range Interpretation Comments TOTAL BILI (test code = 2257185766) 0.9 mg/dL 0.1-1.1 BILI UNCON (test code = 8891466100) 0.2 mg/dL 0.1-1.1 BILI CONJ (test code = 8237486285) 0.0 mg/dL 0.0-0.3 T PROTEIN (test code = 1947826356) 7.9 g/dL 6.3-8.2 ALBUMIN (test code = 7557687967) 3.8 g/dL 3.5-5.0 ALK PHOS (test code = 0610146877) 89 U/L 34-122 ALTv (test code = 1742-6) 30 U/L 5-35 AST(SGOT) (test code = 3144740035) 33 U/L 13-40 Lab Interpretation (test code = Normal 30691-5) [facility] METABOLIC PANEL (NA, K, CL, CO2, GLUCOSE, BUN, CREATININE, CA)2022-02-18 10:37:06 Test Item Value Reference Range Interpretation Comments NA (test code = 135 mmol/L 135-145 7949097820) K (test code = 4.1 mmol/L 3.5-5.0 8874816985) CL (test code = 97 mmol/L 98-108 L 7620871743) CO2 TOTAL (test code = 28 mmol/L 23-31 5089657510) AGAP (test code = 2-16 4308005880) BUN (test code = 9 mg/dL 7-23 8705660640) GLUCOSE (test code = 146 mg/dL 70-110 H 5085912337) CREATININE (test code = 0.53 mg/dL 0.50-1.04 0797165576) CALCIUM (test code = 8.3 mg/dL 8.6-10.6 L 5244615823) eGFR (test code = mL/min/1.73m2 3119288316) NIMISHA (test code = NIMISHA) Association of [...] tests). Lab Interpretation Abnormal (test code = 67573-4) [facility] WITHOUT [id number] 09:46:58 Test Item Value Reference Range Interpretation Comments WBC (test code = 6690-2) See_Comment [A utomated message] The system [employer] generated this result transmit olga reference range : 4.30 - 11.10 10*3/?L. The reference range was not used to interpret this result as normal/abnormal . RBC (test code = 789-8) See_Comment [Au tomated message] The system [employer] generated this result transmit olga reference range [...] See_Comment L [Au tomated message] The system [employer] generated this result transmit olga reference range : 166 - 358 10*3/?L. The reference range was not used to interpret this result as normal/abnormal . MPV (test code = 10.0 fL 9.5-12.9 95926-8) RDW-CV (test code = 12.6 % 12.0-15.5 788-0) RDW-SD (test code = 41.4 fL 39.0-49.9 05245-0) NRBC x10^3 (test code = See_Comment [Au tomated message] 6986280258) The system [employer] generated this result transmit olga reference range : 10*3/?L. The reference range was not used to interpret this result as normal/abnormal . NRBC/100 WBC (test code See_Comment [Au tomated message] = 7077329470) The [facility] generated this result transmit olga reference range : 0.0 - 10.0 /100 WBC s. The reference r cesar was not used to interpret this result as normal/abnormal . IPF % (test code = 1814346082) Lab Interpretation (test Abnormal code = 37783-0) [facility] WITHOUT [id number] 09:46:58 Test Item Value Reference Range Interpretation Comments WBC (test code = 6690-2) See_Comment [A utomated message] The system [employer] generated this result transmit olga reference range : 4.30 - 11.10 10*3/?L. The reference range was not used to interpret this result as normal/abnormal . RBC (test code = 789-8) See_Comment [Au tomated message] The system [employer] generated this result transmit olga reference range [...] See_Comment L [Au tomated message] The system [employer] generated this result transmit olga reference range : 166 - 358 10*3/?L. The reference range was not used to interpret this result as normal/abnormal . MPV (test code = 10.0 fL 9.5-12.9 41991-0) RDW-CV (test code = 12.6 % 12.0-15.5 788-0) RDW-SD (test code = 41.4 fL 39.0-49.9 52507-3) NRBC x10^3 (test code = See_Comment [Au tomated message] 3398525687) The system [employer] generated this result transmit olga reference range : 10*3/?L. The reference range was not used to interpret this result as normal/abnormal . NRBC/100 WBC (test code See_Comment [Au tomated message] = 2714757735) The system [employer] generated this result transmit olga reference range : 0.0 - 10.0 /100 WBC s. The reference r cesar was not used to interpret this result as normal/abnormal . IPF % (test code = 1692443110) Lab Interpretation (test Abnormal code = 42041-9) [facility] GLUCOSE (AUTOMATED)2022-02-18 01:13:49 Test Item Value Reference Range Interpretation Comments POCT GLU (test code = 3425600957) 202 mg/dL 70-110 H Lab Interpretation (test code = Abnormal 44126-3) [facility] GLUCOSE (AUTOMATED)2022-02-18 01:13:49 Test Item Value Reference Range Interpretation Comments POCT GLU (test code = 3036037423) 202 mg/dL 70-110 H Lab Interpretation (test code = Abnormal 71065-3) [facility] GLUCOSE (AUTOMATED)2022-02-17 22:51:05 Test Item Value Reference Range Interpretation Comments POCT GLU (test code = 4765034242) 143 mg/dL 70-110 H Lab Interpretation (test code = Abnormal 33755-7) [facility] GLUCOSE (AUTOMATED)2022-02-17 22:51:05 Test Item Value Reference Range Interpretation Comments POCT GLU (test code = 2327643174) 143 mg/dL 70-110 H Lab Interpretation (test code = Abnormal 65233-9) [facility]2022-[facility] 17:26:23 Test Item Value Reference Range Interpretation Comments POCT GLU (test code = 6225286568) 98 mg/dL 70-110 Lab Interpretation (test code = Normal 41242-6) [facility] 17:26:23 Test Item Value Reference Range Interpretation Comments POCT GLU (test code = 2667146576) 98 mg/dL 70-110 Lab Interpretation (test code = Normal 35989-9) [facility] GLUCOSE (AUTOMATED)2022-02-17 12:35:48 Test Item Value Reference Range Interpretation Comments POCT GLU (test code = 1508520791) 94 mg/dL 70-110 Lab Interpretation (test code = Normal 41946-4) [facility] GLUCOSE (AUTOMATED)2022-02-17 12:35:48 Test Item Value Reference Range Interpretation Comments POCT GLU (test code = 6628198042) 94 mg/dL 70-110 Lab Interpretation (test code = Normal 65913-5) [facility] 02:08:34 Test Item Value Reference Range Interpretation Comments POCT GLU (test code = 6361959460) 123 mg/dL 70-110 H Lab Interpretation (test code = Abnormal 66880-9) [facility] GLUCOSE (AUTOMATED)2022-02-17 02:08:34 Test Item Value Reference Range Interpretation Comments POCT GLU (test code = 1406132478) 123 mg/dL 70-110 H Lab Interpretation (test code = Abnormal 19847-1) [facility] GLUCOSE (AUTOMATED)2022-02-16 21:35:36 Test Item Value Reference Range Interpretation Comments POCT GLU (test code = 7276157387) 82 mg/dL 70-110 Lab Interpretation (test code = Normal 65197-3) [facility] GLUCOSE (AUTOMATED)2022-02-16 21:35:36 Test Item Value Reference Range Interpretation Comments POCT GLU (test code = 9556929836) 82 mg/dL 70-110 Lab Interpretation (test code = Normal 49391-0) [facility] GLUCOSE (AUTOMATED)2022-02-16 16:54:49 Test Item Value Reference Range Interpretation Comments POCT GLU (test code = 0079623991) 89 mg/dL 70-110 Lab Interpretation (test code = Normal 64945-0) [facility] GLUCOSE (AUTOMATED)2022-02-16 16:54:49 Test Item Value Reference Range Interpretation Comments POCT GLU (test code = 9632301337) 89 mg/dL 70-110 Lab Interpretation (test code = Normal 43355-3) [facility] WITH [id number] 13:02:56 Test Item Value Reference Range Interpretation [...] RDW-SD (test code = 43.7 fL 39.0-49.9 51706-3) RDW-CV (test code = 13.0 % 12.0-15.5 788-0) PLT (test code = See_Comment L [Automated 777-3) message] The sy stem which generated this result transmitted reference range : 166 - 358 10*3/ ?L. The reference r cesar was not used to interpret this result as normal/abnormal . MPV (test code = 9.5 fL 9.5-12.9 63656-0) NRBC/100 WBC (test See_Comment [Automat ed code = 1141811940) message] The system which generated this result transmitted reference range : 0.0 - 10.0 /100 WBCs. The refer ence range was not u sed to interpret th is result as normal/abnormal . NRBC x10^3 (test code See_Comment [Auto mated = 3438798841) message] The s ystem which generated this result transmitted reference range : 10*3/?L. The reference range was not used to interpret this result as normal/abnormal . GRAN MAT (NEUT) % 37.7 % (test code = 770-8) IMM GRAN % (test code 0.20 % = 8697293155) LYMPH % (test code = 49.9 % 736-9) MONO % (test code = 7.8 % 5905-5) EOS % (test code = 3.9 % 713-8) BASO % (test code = 0.5 % 706-2) GRAN MAT x10^3(ANC) 1.64 10*3/uL 1.88-7.09 L (test code = 3131302041) IMM GRAN x10^3 (test 0.00-0.06 code = 7495917192) LYMPH x10^3 (test code 2.17 10*3/uL 1.32-3.29 = 731-0) MONO x10^3 (test code 0.34 10*3/uL 0.33-0.92 = 742-7) EOS x10^3 (test code = 0.17 10*3/uL 0.03-0.39 711-2) BASO x10^3 (test code 0.01-0.07 = 704-7) REACT LYMPHS (test Rare code = 7877216985) Lab Interpretation Abnormal (test code = 90024-3) [facility] WITH [id number] 13:02:56 Test Item Value Reference Range Interpretation [...] RDW-SD (test code = 43.7 fL 39.0-49.9 25332-5) RDW-CV (test code = 13.0 % 12.0-15.5 788-0) PLT (test code = See_Comment L [Automated 777-3) message] The sy stem which generated this result transmitted reference range : 166 - 358 10*3/ ?L. The reference r cesar was not used to interpret this result as normal/abnormal . MPV (test code = 9.5 fL 9.5-12.9 25529-5) NRBC/100 WBC (test See_Comment [Automat ed code = 5172171051) message] The system which generated this result transmitted reference range : 0.0 - 10.0 /100 WBCs. The refer ence range was not u sed to interpret th is result as normal/abnormal . NRBC x10^3 (test code See_Comment [Auto mated = 5199469332) message] The s ystem which generated this result transmitted reference range : 10*3/?L. The reference range was not used to interpret this result as normal/abnormal . GRAN MAT (NEUT) % 37.7 % (test code = 770-8) IMM GRAN % (test code 0.20 % = 8260005299) LYMPH % (test code = 49.9 % 736-9) MONO % (test code = 7.8 % 5905-5) EOS % (test code = 3.9 % 713-8) BASO % (test code = 0.5 % 706-2) GRAN MAT x10^3(ANC) 1.64 10*3/uL 1.88-7.09 L (test code = 2668364689) IMM GRAN x10^3 (test 0.00-0.06 code = 0048695895) LYMPH x10^3 (test code 2.17 10*3/uL 1.32-3.29 = 731-0) MONO x10^3 (test code 0.34 10*3/uL 0.33-0.92 = 742-7) EOS x10^3 (test code = 0.17 10*3/uL 0.03-0.39 711-2) BASO x10^3 (test code 0.01-0.07 = 704-7) REACT LYMPHS (test Rare code = 5910211784) Lab Interpretation Abnormal (test code = 58874-0) [facility] GLUCOSE (AUTOMATED)2022-02-16 12:45:32 Test Item Value Reference Range Interpretation Comments POCT GLU (test code = 6829477898) 89 mg/dL 70-110 Lab Interpretation (test code = Normal 96705-5) [facility] GLUCOSE (AUTOMATED)2022-02-16 12:45:32 Test Item Value Reference Range Interpretation Comments POCT GLU (test code = 0599976095) 89 mg/dL 70-110 Lab Interpretation (test code = Normal 86966-9) [facility] METABOLIC PANEL (NA, K, CL, CO2, GLUCOSE, BUN, CREATININE, CA)2022-02-16 11:15:07 Test Item Value Reference Range Interpretation Comments NA (test code = 137 mmol/L 135-145 0687293020) K (test code = 4.3 mmol/L 3.5-5.0 5769594042) CL (test code = 100 mmol/L 98-108 4855561526) CO2 TOTAL (test code = 33 mmol/L 23-31 H 6998981735) AGAP (test code = 2-16 3102889850) BUN (test code = 7 mg/dL 7-23 5949563466) GLUCOSE (test code = 92 mg/dL 70-110 9579371832) CREATININE (test code = 0.62 mg/dL 0.50-1.04 7762134457) CALCIUM (test code = 8.6 mg/dL 8.6-10.6 0802514465) eGFR (test code = mL/min/1.73m2 2954259085) NIMISHA (test code = NIMISHA) Association of [...] tests). Lab Interpretation Abnormal (test code = 95430-1) [facility] METABOLIC PANEL (NA, K, CL, CO2, GLUCOSE, BUN, CREATININE, CA)2022-02-16 11:15:07 Test Item Value Reference Range Interpretation Comments NA (test code = 137 mmol/L 135-145 4076960702) K (test code = 4.3 mmol/L 3.5-5.0 7000145948) CL (test code = 100 mmol/L 98-108 8230771641) CO2 TOTAL (test code = 33 mmol/L 23-31 H 5209217887) AGAP (test code = 2-16 5652034187) BUN (test code = 7 mg/dL 7-23 9559786465) GLUCOSE (test code = 92 mg/dL 70-110 0203883893) CREATININE (test code = 0.62 mg/dL 0.50-1.04 7760431342) CALCIUM (test code = 8.6 mg/dL 8.6-10.6 4509811924) eGFR (test code = mL/min/1.73m2 0614762396) NIMISHA (test code = NIMISHA) Association of [...] tests). Lab Interpretation Abnormal (test code = 83407-3) [facility] Test Item Value Reference Range Interpretation Comments LIPASE (test code = 5964811594) 239 U/L 0-220 H Lab Interpretation (test code = Abnormal 87602-4) [facility] 11:14:47 Test Item Value Reference Range Interpretation Comments LIPASE (test code = 6780031100) 239 U/L 0-220 H Lab Interpretation (test code = Abnormal 36593-8) [facility] GLUCOSE (AUTOMATED)2022-02-16 01:30:45 Test Item Value Reference Range Interpretation Comments POCT GLU (test code = 0372917015) 93 mg/dL 70-110 Lab Interpretation (test code = Normal 15939-2) [facility] GLUCOSE (AUTOMATED)2022-02-16 01:30:45 Test Item Value Reference Range Interpretation Comments POCT GLU (test code = 9675403299) 93 mg/dL 70-110 Lab Interpretation (test code = Normal 31792-4) [facility] GLUCOSE (AUTOMATED)2022-02-15 22:09:25 Test Item Value Reference Range Interpretation Comments POCT GLU (test code = 7069804369) 93 mg/dL 70-110 Lab Interpretation (test code = Normal 81064-2) [facility] GLUCOSE (AUTOMATED)2022-02-15 22:09:25 Test Item Value Reference Range Interpretation Comments POCT GLU (test code = 6394283087) 93 mg/dL 70-110 Lab Interpretation (test code = Normal 50201-8) [facility] GLUCOSE (AUTOMATED)2022-02-15 17:03:03 Test Item Value Reference Range Interpretation Comments POCT GLU (test code = 0725926541) 98 mg/dL 70-110 Lab Interpretation (test code = Normal 46757-0) [facility] GLUCOSE (AUTOMATED)2022-02-15 17:03:03 Test Item Value Reference Range Interpretation Comments POCT GLU (test code = 9496510997) 98 mg/dL 70-110 Lab Interpretation (test code = Normal 26822-9) [facility] GLUCOSE (AUTOMATED)2022-02-15 13:06:53 Test Item Value Reference Range Interpretation Comments POCT GLU (test code = 7714566897) 100 mg/dL 70-110 Lab Interpretation (test code = Normal 58752-1) [facility] GLUCOSE (AUTOMATED)2022-02-15 13:06:53 Test Item Value Reference Range Interpretation Comments POCT GLU (test code = 6938412551) 100 mg/dL 70-110 Lab Interpretation (test code = Normal 26163-9) [facility] WITH [id number] 12:02:32 Test Item Value Reference Range Interpretation [...] RDW-SD (test code = 43.1 fL 39.0-49.9 97050-4) RDW-CV (test code = 12.9 % 12.0-15.5 788-0) PLT (test code = See_Comment [Automated 777-3) message] The sy stem which generated this result transmitted reference range : 166 - 358 10*3/ ?L. The reference r cesar was not used to interpret this result as normal/abnormal . MPV (test code = 9.4 fL 9.5-12.9 L 63446-2) NRBC/100 WBC (test See_Comment [Automat ed code = 1567900891) message] The system which generated this result transmitted reference range : 0.0 - 10.0 /100 WBCs. The refer ence range was not u sed to interpret th is result as normal/abnormal . NRBC x10^3 (test code See_Comment [Auto mated = 4868083359) message] The s ystem which generated this result transmitted reference range : 10*3/?L. The reference range was not used to interpret this result as normal/abnormal . SEG % (test code = 56 % 33-76 37919-6) LYMPH % (test code = 36 % 14-54 55144-8) MONO % (test code = 8 % 0-4 H 60776-2) ANC (test code = 1.99 10*3/uL 1.88-7.09 753-4) Lab Interpretation Abnormal (test code = 78352-9) [facility] WITH [id number] 12:02:32 Test Item Value Reference Range Interpretation [...] RDW-SD (test code = 43.1 fL 39.0-49.9 93053-9) RDW-CV (test code = 12.9 % 12.0-15.5 788-0) PLT (test code = See_Comment [Automated 777-3) message] The sy stem which generated this result transmitted reference range : 166 - 358 10*3/ ?L. The reference r cesar was not used to interpret this result as normal/abnormal . MPV (test code = 9.4 fL 9.5-12.9 L 85043-6) NRBC/100 WBC (test See_Comment [Automat ed code = 0431521711) message] The system which generated this result transmitted reference range : 0.0 - 10.0 /100 WBCs. The refer ence range was not u sed to interpret th is result as normal/abnormal . NRBC x10^3 (test code See_Comment [Auto mated = 4386880057) message] The s ystem which generated this result transmitted reference range : 10*3/?L. The reference range was not used to interpret this result as normal/abnormal . SEG % (test code = 56 % 33-76 69455-2) LYMPH % (test code = 36 % 14-54 67463-3) MONO % (test code = 8 % 0-4 H 20050-0) ANC (test code = 1.99 10*3/uL 1.88-7.09 753-4) Lab Interpretation Abnormal (test code = 20472-9) [facility]10 Test Item Value Reference Range Interpretation Comments LIPASE (test code = 9833788329) 370 U/L 0-220 H Lab Interpretation (test code = Abnormal 97125-6) [facility] ([id number][facility]2022-02-15 10:17:10 Test Item Value Reference Range Interpretation Comments NA (test code = 138 mmol/L 135-145 5015477406) K (test code = 4.0 mmol/L 3.5-5.0 9156360944) CL (test code = 100 mmol/L 98-108 2559161756) CO2 TOTAL (test code = 30 mmol/L 23-31 7863772695) AGAP (test code = 2-16 9254292887) BUN (test code = 5 mg/dL 7-23 L 8310142414) GLUCOSE (test code = 100 mg/dL 70-110 6013915472) CREATININE (test code = 0.59 mg/dL 0.50-1.04 1328926821) TOTAL BILI (test code = 0.6 mg/dL 0.1-1.1 7930380612) CALCIUM (test code = 8.8 mg/dL 8.6-10.6 9081206739) T PROTEIN (test code = 7.5 g/dL 6.3-8.2 5360683687) ALBUMIN (test code = 3.4 g/dL 3.5-5.0 L 5640005822) ALK PHOS (test code = 88 U/L 34-122 3097718112) ALTv (test code = 20 U/L 5-35 1742-6) AST(SGOT) (test code = 22 U/L 13-40 1362816955) eGFR (test code = mL/min/1.73m2 3873415234) NIMISHA (test code = NIMISHA) Association of [...] tests). Lab Interpretation Abnormal (test code = 52474-0) [facility] 10:17:10 Test Item Value Reference Range Interpretation Comments LIPASE (test code = 0037234578) 370 U/L 0-220 H Lab Interpretation (test code = Abnormal 44556-5) [facility] (03404)2022-02-15 10:17:10 Test Item Value Reference Range Interpretation Comments NA (test code = 138 mmol/L 135-145 7655349166) K (test code = 4.0 mmol/L 3.5-5.0 4604590663) CL (test code = 100 mmol/L 98-108 6313296556) CO2 TOTAL (test code = 30 mmol/L 23-31 6350458094) AGAP (test code = 2-16 7481615160) BUN (test code = 5 mg/dL 7-23 L 6468365215) GLUCOSE (test code = 100 mg/dL 70-110 5688402292) CREATININE (test code = 0.59 mg/dL 0.50-1.04 2921795819) TOTAL BILI (test code = 0.6 mg/dL 0.1-1.0 2905117360) CALCIUM (test code = 8.8 mg/dL 8.6-10.6 2815861462) T PROTEIN (test code = 7.5 g/dL 6.3-8.2 0905594081) ALBUMIN (test code = 3.4 g/dL 3.5-5.0 L 7978092440) ALK PHOS (test code = 88 U/L 34-122 9152525395) ALTv (test code = 20 U/L 5-35 1742-6) AST(SGOT) (test code = 22 U/L 13-40 3635880514) eGFR (test code = mL/min/1.73m2 7915015153) NIMISHA (test code = NIMISHA) Association of [...] tests). Lab Interpretation Abnormal (test code = 06148-1) [facility] GLUCOSE (AUTOMATED)2022-02-15 01:41:34 Test Item Value Reference Range Interpretation Comments POCT GLU (test code = 3394089261) 87 mg/dL 70-110 Lab Interpretation (test code = Normal 39326-8) [facility] GLUCOSE (AUTOMATED)2022-02-15 01:41:34 Test Item Value Reference Range Interpretation Comments POCT GLU (test code = 1798253520) 87 mg/dL 70-110 Lab Interpretation (test code = Normal 95090-9) [facility] GLUCOSE (AUTOMATED)2022-02-14 22:02:36 Test Item Value Reference Range Interpretation Comments POCT GLU (test code = 5708928068) 113 mg/dL 70-110 H Lab Interpretation (test code = Abnormal 21946-9) [facility] GLUCOSE (AUTOMATED)2022-02-14 22:02:36 Test Item Value Reference Range Interpretation Comments POCT GLU (test code = 3742359780) 113 mg/dL 70-110 H Lab Interpretation (test code = Abnormal 59833-1) [facility] GLUCOSE (AUTOMATED)2022-02-14 17:10:07 Test Item Value Reference Range Interpretation Comments POCT GLU (test code = 7395862584) 89 mg/dL 70-110 Lab Interpretation (test code = Normal 68165-7) [facility] GLUCOSE (AUTOMATED)2022-02-14 17:10:07 Test Item Value Reference Range Interpretation Comments POCT GLU (test code = 7235920271) 89 mg/dL 70-110 Lab Interpretation (test code = Normal 72107-3) [facility] GLUCOSE (AUTOMATED)2022-02-14 13:15:10 Test Item Value Reference Range Interpretation Comments POCT GLU (test code = 9552348178) 99 mg/dL 70-110 Lab Interpretation (test code = Normal 53273-6) [facility] GLUCOSE (AUTOMATED)2022-02-14 13:15:10 Test Item Value Reference Range Interpretation Comments POCT GLU (test code = 7165805528) 99 mg/dL 70-110 Lab Interpretation (test code = Normal 78531-2) [facility] GLUCOSE (AUTOMATED)2022-02-14 04:35:25 Test Item Value Reference Range Interpretation Comments POCT GLU (test code = 1421539880) 111 mg/dL 70-110 H Lab Interpretation (test code = Abnormal 88342-2) [facility] GLUCOSE (AUTOMATED)2022-02-14 04:35:25 Test Item Value Reference Range Interpretation Comments POCT GLU (test code = 8044144144) 111 mg/dL 70-110 H Lab Interpretation (test code = Abnormal 13035-7) [facility] GLUCOSE (AUTOMATED)2022-02-14 01:56:20 Test Item Value Reference Range Interpretation Comments POCT GLU (test code = 7255128559) 163 mg/dL 70-110 H Lab Interpretation (test code = Abnormal 62899-9) [facility] GLUCOSE (AUTOMATED)2022-02-14 01:56:20 Test Item Value Reference Range Interpretation Comments POCT GLU (test code = 1213874076) 163 mg/dL 70-110 H Lab Interpretation (test code = Abnormal 59218-9) [facility]2022-[facility]-13 22:06:52 Test Item Value Reference Range Interpretation Comments POCT GLU (test code = 2314948768) 111 mg/dL 70-110 H Lab Interpretation (test code = Abnormal 73082-0) [facility] GLUCOSE (AUTOMATED)2022-02-13 22:06:52 Test Item Value Reference Range Interpretation Comments POCT GLU (test code = 3173952857) 111 mg/dL 70-110 H Lab Interpretation (test code = Abnormal 09354-7) [facility] GLUCOSE (AUTOMATED)2022-02-13 16:41:19 Test Item Value Reference Range Interpretation Comments POCT GLU (test code = 8802513223) 105 mg/dL 70-110 Lab Interpretation (test code = Normal 77992-0) [facility] GLUCOSE (AUTOMATED)2022-02-13 16:41:19 Test Item Value Reference Range Interpretation Comments POCT GLU (test code = 8097837895) 105 mg/dL 70-110 Lab Interpretation (test code = Normal 60810-3) [facility] GLUCOSE (AUTOMATED)2022-02-13 12:38:22 Test Item Value Reference Range Interpretation Comments POCT GLU (test code = 7929817322) 112 mg/dL 70-110 H Lab Interpretation (test code = Abnormal 49778-4) [facility] GLUCOSE (AUTOMATED)2022-02-13 12:38:22 Test Item Value Reference Range Interpretation Comments POCT GLU (test code = 1853356541) 112 mg/dL 70-110 H Lab Interpretation (test code = Abnormal 32576-5) [facility] GLUCOSE (AUTOMATED)2022-02-13 01:23:07 Test Item Value Reference Range Interpretation Comments POCT GLU (test code = 1574770819) 101 mg/dL 70-110 Lab Interpretation (test code = Normal 49717-4) [facility] GLUCOSE (AUTOMATED)2022-02-13 01:23:07 Test Item Value Reference Range Interpretation Comments POCT GLU (test code = 5153627778) 101 mg/dL 70-110 Lab Interpretation (test code = Normal 50914-3) [facility] GLUCOSE (AUTOMATED)2022-02-12 21:05:12 Test Item Value Reference Range Interpretation Comments POCT GLU (test code = 7129427053) 104 mg/dL 70-110 Lab Interpretation (test code = Normal 31564-1) [facility] GLUCOSE (AUTOMATED)2022-02-12 21:05:12 Test Item Value Reference Range Interpretation Comments POCT GLU (test code = 0176659981) 104 mg/dL 70-110 Lab Interpretation (test code = Normal 58265-6) [facility]. METABOLIC PANEL (82988)2022-02-12 14:37:10 Test Item Value Reference Range Interpretation Comments NA (test code = 135 mmol/L 135-145 6304972035) K (test code = 3.8 mmol/L 3.5-5.0 9339709391) CL (test code = 101 mmol/L 98-108 9092685284) CO2 TOTAL (test code = 27 mmol/L 23-31 4902867004) AGAP (test code = 2-16 3675625511) BUN (test code = 7 mg/dL 7-23 7064537366) GLUCOSE (test code = 172 mg/dL 70-110 H 7688531250) CREATININE (test code = 0.50 mg/dL 0.50-1.04 2669477840) TOTAL BILI (test code = 0.5 mg/dL 0.1-1.2 3040956746) CALCIUM (test code = 8.5 mg/dL 8.6-10.6 L 5604109811) T PROTEIN (test code = 7.1 g/dL 6.3-8.2 4878429888) ALBUMIN (test code = 3.2 g/dL 3.5-5.0 L 7810587068) ALK PHOS (test code = 84 U/L 34-122 9008657842) ALTv (test code = 19 U/L 5-35 1742-6) AST(SGOT) (test code = 18 U/L 13-40 1383838307) eGFR (test code = mL/min/1.73m2 4834874209) NIMISHA (test code = NIMISHA) Association of [...] tests). Lab Interpretation Abnormal (test code = 80873-7) [facility]. METABOLIC PANEL (20491)2022-02-12 14:37:10 Test Item Value Reference Range Interpretation Comments NA (test code = 135 mmol/L 135-145 0784878193) K (test code = 3.8 mmol/L 3.5-5.0 7641839809) CL (test code = 101 mmol/L 98-108 4398714545) CO2 TOTAL (test code = 27 mmol/L 23-31 4977212162) AGAP (test code = 2-16 0163195593) BUN (test code = 7 mg/dL 7-23 7339029435) GLUCOSE (test code = 172 mg/dL 70-110 H 5166462618) CREATININE (test code = 0.50 mg/dL 0.50-1.04 2472850163) TOTAL BILI (test code = 0.5 mg/dL 0.1-1.3 4171142409) CALCIUM (test code = 8.5 mg/dL 8.6-10.6 L 8564273838) T PROTEIN (test code = 7.1 g/dL 6.3-8.2 9085782894) ALBUMIN (test code = 3.2 g/dL 3.5-5.0 L 3198995029) ALK PHOS (test code = 84 U/L 34-122 9568311576) ALTv (test code = 19 U/L 5-35 1742-6) AST(SGOT) (test code = 18 U/L 13-40 3607347830) eGFR (test code = mL/min/1.73m2 5971475201) NIMISHA (test code = NIMISHA) Association of [...] tests). Lab Interpretation Abnormal (test code = 35345-8) [facility]TOTAL CHOLESTEROL, TRIGLYCERIDES, HDL)2022-02-11 00:06:29 Test Item Value Reference Range Interpretation Comments CHOL (test code = 167 mg/dL 120-200 1171063291) HDL (test code = 22 mg/dL See_Comment L [Automated message] 0382965290) The system [employer] generated this result transmit olga reference range : >=50. The refer ence range was not u sed to interpret th is result as normal/abnormal . HDLC RATIO (test code = See_Comment H [Au tomated message] 9696549403) The system [employer] generated this result transmit olga reference range : <=4.5. The refe rence range was not u sed to interpret th is result as normal/abnormal . TRIG (test code = 135 mg/dL 30-170 9931537137) LDL CHOL (test code = 118 mg/dL See_Comment [Auto mated message] 66951-1) The system [employer] generated this result transmit olga reference range : <=160. The refe rence range was not u sed to interpret th is result as normal/abnormal . VLDL (test code = 27 mg/dL 5-60 1134040229) Lab Interpretation (test Abnormal code = 08819-8) [facility] (43849)(TOTAL CHOLESTEROL, TRIGLYCERIDES, HDL)2022-02-11 00:06:29 Test Item Value Reference Range Interpretation Comments CHOL (test code = 167 mg/dL 120-200 3215456407) HDL (test code = 22 mg/dL See_Comment L [Automated message] 5565588468) The system [employer] generated this result transmit olga reference range : >=50. The refer ence range was not u sed to interpret th is result as normal/abnormal . HDLC RATIO (test code = See_Comment H [Au tomated message] 0582317316) The system [employer] generated this result transmit olga reference range : <=4.5. The refe rence range was not u sed to interpret th is result as normal/abnormal . TRIG (test code = 135 mg/dL 30-170 5309852843) LDL CHOL (test code = 118 mg/dL See_Comment [Auto mated message] 96566-4) The system [employer] generated this result transmit olga reference range : <=160. The refe rence range was not u sed to interpret th is result as normal/abnormal . VLDL (test code = 27 mg/dL 5-60 4677542935) Lab Interpretation (test Abnormal code = 45547-7) [facility] [id number] 20:00:18 Test Item Value Reference Range Interpretation Comments WBC (test code = See_Comment [Automated 8590-2) message] The sy stem which generated this [...] RDW-SD (test code = 44.4 fL 39.0-49.9 02009-8) RDW-CV (test code = 13.1 % 12.0-15.5 788-0) PLT (test code = See_Comment [Automated 777-3) message] The sy stem which generated this result transmitted reference range : 166 - 358 10*3/ ?L. The reference r cesar was not used to interpret this result as normal/abnormal . MPV (test code = 10.4 fL 9.5-12.9 33575-2) NRBC/100 WBC (test See_Comment [Automat ed code = 2309414219) message] The system which generated this result transmitted reference range : 0.0 - 10.0 /100 WBCs. The refer ence range was not u sed to interpret th is result as normal/abnormal . NRBC x10^3 (test code See_Comment [Auto mated = 4503166268) message] The s ystem which generated this result transmitted reference range : 10*3/?L. The reference range was not used to interpret this result as normal/abnormal . SEG % (test code = 42 % 33-76 73353-7) BAND % (test code = 4 % 0-1 H 48673-2) LYMPH % (test code = 38 % 14-54 89021-1) REACT LYMPH % (test 2 % code = 8618515664) LG GRAN LYMPH % (test 2 % See_Comment H [Auto mated code = 61437-1) message] The system which generated this result transmitted reference range : <=0. The refere nce range was not u sed to interpret th is result as normal/abnormal . MONO % (test code = 8 % 0-4 H 02016-1) EOS % (test code = 4 % 0-3 H 53922-9) ANC (test code = 3.05 10*3/uL 1.88-7.09 753-4) SCHISTOCYTES (test 1+ A code = 800-3) Lab Interpretation Abnormal (test code = 89579-7) [facility] WITH [id number] 20:00:18 Test Item Value Reference Range Interpretation [...] RDW-SD (test code = 44.4 fL 39.0-49.9 36789-5) RDW-CV (test code = 13.1 % 12.0-15.5 788-0) PLT (test code = See_Comment [Automated 777-3) message] The sy stem which generated this result transmitted reference range : 166 - 358 10*3/ ?L. The reference r cesar was not used to interpret this result as normal/abnormal . MPV (test code = 10.4 fL 9.5-12.9 30862-1) NRBC/100 WBC (test See_Comment [Automat ed code = 9503082300) message] The system which generated this result transmitted reference range : 0.0 - 10.0 /100 WBCs. The refer ence range was not u sed to interpret th is result as normal/abnormal . NRBC x10^3 (test code See_Comment [Auto mated = 3929926770) message] The s ystem which generated this result transmitted reference range : 10*3/?L. The reference range was not used to interpret this result as normal/abnormal . SEG % (test code = 42 % 33-76 67078-6) BAND % (test code = 4 % 0-1 H 56673-6) LYMPH % (test code = 38 % 14-54 57320-1) REACT LYMPH % (test 2 % code = 8973255762) LG GRAN LYMPH % (test 2 % See_Comment H [Auto mated code = 81398-1) message] The system which generated this result transmitted reference range : <=0. The refere nce range was not u sed to interpret th is result as normal/abnormal . MONO % (test code = 8 % 0-4 H 56105-2) EOS % (test code = 4 % 0-3 H 69641-9) ANC (test code = 3.05 10*3/uL 1.88-7.09 753-4) SCHISTOCYTES (test 1+ A code = 800-3) Lab Interpretation Abnormal (test code = 80561-2) [facility]. METABOLIC PANEL ([id number])2022-02-10 19:12:08 Test Item Value Reference Range Interpretation Comments NA (test code = 135 mmol/L 135-145 0351965825) K (test code = 4.5 mmol/L 3.5-5.0 1955465638) CL (test code = 95 mmol/L 98-108 L 0651051725) CO2 TOTAL (test code = 30 mmol/L 23-31 3808730764) AGAP (test code = 2-16 8152967086) BUN (test code = 11 mg/dL 7-23 5304231471) GLUCOSE (test code = 108 mg/dL 70-110 7209081416) CREATININE (test code = 0.62 mg/dL 0.50-1.04 0530380653) TOTAL BILI (test code = 0.4 mg/dL 0.1-1.0 9048263245) CALCIUM (test code = 9.1 mg/dL 8.6-10.6 7181279154) T PROTEIN (test code = 7.8 g/dL 6.3-8.2 4874007306) ALBUMIN (test code = 3.7 g/dL 3.5-5.0 1899422407) ALK PHOS (test code = 100 U/L 34-122 9454902672) ALTv (test code = 24 U/L 5-35 1742-6) AST(SGOT) (test code = 16 U/L 13-40 5491181937) eGFR (test code = mL/min/1.73m2 2238455751) NIMISHA (test code = NIMISHA) Association of [...] tests). Lab Interpretation Abnormal (test code = 32849-5) [facility]. METABOLIC PANEL (36116)2022-02-10 19:12:08 Test Item Value Reference Range Interpretation Comments NA (test code = 135 mmol/L 135-145 9903469909) K (test code = 4.5 mmol/L 3.5-5.0 5969979224) CL (test code = 95 mmol/L 98-108 L 2261314760) CO2 TOTAL (test code = 30 mmol/L 23-31 3527415428) AGAP (test code = 2-16 8196281821) BUN (test code = 11 mg/dL 7-23 1956637912) GLUCOSE (test code = 108 mg/dL 70-110 8278346008) CREATININE (test code = 0.62 mg/dL 0.50-1.04 6525806422) TOTAL BILI (test code = 0.4 mg/dL 0.1-1.9 9220669409) CALCIUM (test code = 9.1 mg/dL 8.6-10.6 1671848672) T PROTEIN (test code = 7.8 g/dL 6.3-8.2 5226395075) ALBUMIN (test code = 3.7 g/dL 3.5-5.0 0193475213) ALK PHOS (test code = 100 U/L 34-122 3057842419) ALTv (test code = 24 U/L 5-35 1742-6) AST(SGOT) (test code = 16 U/L 13-40 0593425410) eGFR (test code = mL/min/1.73m2 4216247115) NIMISHA (test code = NIMISHA) Association of [...] tests). Lab Interpretation Abnormal (test code = 19687-7) [facility] Test Item Value Reference Range Interpretation Comments LIPASE (test code = 0854154488) 2251 U/L 0-220 H Lab Interpretation (test code = Abnormal 92332-6) [facility]23 Test Item Value Reference Range Interpretation Comments LIPASE (test code = 3360953849) 2251 U/L 0-220 H Lab Interpretation (test code = Abnormal 82840-2) [facility] MOLECULAR [id number] 19:50:42 Test Item Value Reference Range Interpretation Comments POCT Molecular FluA (test code = Negative Negative 96543-0) POCT Molecular FluB (test code = Negative Negative 58187-3) Lab Interpretation (test code = Normal 88131-5) [facility] RNA [Presence] in Respiratory specimen by SHANNAN with probe [id number] 19:14:54 Test Item Value Reference Range Interpretation Comments SARS-CoV-2 (COVID-19) RNA Not detected Not-Detected [Presence] in Respiratory specimen by SHANNAN with probe detection (test code = 63022-5) JONAH BUCK [id number] (COVID-19) RNA [Presence] in Respiratory specimen by SHANNAN with probe [id number] 18:15:10 Test Item Value Reference Range Interpretation Comments SARS-CoV-2 (COVID-19) RNA Not detected Not-Detected [Presence] in Respiratory specimen by SHANNAN with probe detection (test code = 26540-1) JONAH BUCK [id number]-9 (COVID-19) RNA [Presence] in Respiratory specimen by SHANNAN with probe [id number] 23:19:02 Test Item Value Reference Range Interpretation Comments SARS-CoV-2 (COVID-19) RNA Not detected Not-Detected [Presence] in Respiratory specimen by SHANNAN with probe detection (test code = 28929-5) JONAH JOSEPH"
--- NOTE | 2023-03-17 11:18 | ER ---
Nurse's Notes [facility] Name: Siri Rutherford Age: 57 yrs Sex: Female : 1965 Arrival Date: 03/17/2023 Time: 10:47 Bed 11 Private MD: Diagnosis: Cellulitis of face Presentation: 03/17 11:05 Chief complaint: Patient states: R ear felt crusty for 2 weeks. Yesterday it got red, ll1 swollen, more painful. Pain radiated into R side of throat now. Coronavirus screen: Vaccine status: Patient reports receiving the 2nd dose of the covid vaccine. Client denies travel out of the [place] in the last 14 days. At this time, the client does not indicate any symptoms associated with coronavirus-19. Ebola Screen: Patient denies travel to an Ebola-affected area in the 21 days before illness onset. Initial Sepsis Screen: Does the patient meet any 2 criteria? No. Patient's initial sepsis screen is negative. Does the patient have a suspected source of infection? Yes: Other: ear infection. Risk Assessment: Do you want to hurt yourself or someone else? Patient reports no desire to harm self or others. Onset of symptoms was March 03, 2023. 11:05 Method Of Arrival: Wheelchair ll1 11:05 Acuity: MARILU 4 ll1 Triage Assessment: 11:07 General: Appears uncomfortable, Behavior is calm, cooperative, appropriate for age. ll1 Pain: Complains of pain in right ear Pain currently is 8 out of 10 on a pain scale. Quality of pain is described as aching. Derm: Reports pain redness R ear. Historical: - Allergies: 10:57 Bentyl; ll1 10:57 Compazine; ll1 10:57 Demerol (Itching); ll1 10:57 Latex; ll1 - PMHx: 10:57 Degenerative disc disease; lymphedema; Chronic pain; Diverticulitis; Hidradenitis ll1 Suppurativa; Pancreatitis; - PSHx: 10:57 back sx; Cholecystectomy; hysterectomy; multiple orthopedic surgeries; ll1 - Immunization history:: Adult Immunizations up to date. - Social history:: Smoking status: Patient denies any tobacco usage or history of. Screenin:34 [facility] ED Fall Risk Assessment (Adult) Score/Fall Risk Level 0 - 2 = Low Risk ll1 Oriented to surroundings, Maintained a safe environment, Educated pt \T\ family on fall prevention, incl call for assistance when getting out of bed, Hourly rounding (assess needs \T\ fall precautionary measures) done. Abuse screen: Denies threats or abuse. Nutritional screening: No deficits noted. Tuberculosis screening: No symptoms or risk factors identified. Assessment: 11:26 Reassessment: No changes from previously documented assessment. Patient and/or family ll1 updated on plan of care and expected duration. Pain level reassessed. Patient is alert, oriented x 3, equal unlabored respirations, skin warm/dry/pink. Vital Signs: 11:05 BP 153 / 79; Pulse 84; Resp 18; Temp 97.9; Pulse Ox 97% on R/A; Weight 127.01 kg; ll1 Height 5 ft. 5 in. ; Pain 8/10; 11:05 Body Mass Index 46.59 (127.01 kg, 165.1 cm) ll1 11:05 Pain Scale: Adult ll1 ED Course: 10:50 Patient arrived in ED. mg5 10:50 Derian Camacho DO is Attending Physician. ms3 10:57 Arm band placed on. ll1 11:05 Patient placed in an exam room, on a stretcher. ll1 11:06 Triage completed. ll1 11:16 Fortino Angelo DO is Referral Physician. ms3 11:34 No provider procedures requiring assistance completed. Patient did not have IV access ll1 during this emergency room visit. 11:49 Patient has correct armband on for positive identification. Bed in low position. Call ll1 light in reach. Provided Education on: n/a. Administered Medications: No medications were administered Medication: 11:49 VIS not applicable for this client. ll1 Outcome: 11:17 Discharge ordered by . ms3 11:26 Patient left the ED. ll1 11:34 Patient left the ED. ll1 11:34 Discharged to home ambulatory, ll1 11:34 Condition: stable 11:34 Discharge instructions given to patient, Instructed on discharge instructions, follow up and referral plans. medication usage, Demonstrated understanding of instructions, follow-up care, medications, Prescriptions given X 2, Signatures: Jacklyn Carreno RN RN ll1 Derian Camacho DO DO ms3 Jud Pagan mg5
--- NOTE | 2023-03-17 11:18 | EDPHYS ---
Physician Documentation [facility] Name: Siri Rutherford Age: 57 yrs Sex: Female : 1965 Arrival Date: 03/17/2023 Time: 10:47 Bed 11 Private MD: ED Physician Derian Camacho HPI: 03/17 11:17 This 57 yrs old Female presents to ER via Wheelchair with complaints of Ear/Throat ms3 Problem. 11:17 57-year-old female with past medical history of degenerative disc disease, lymphedema, ms3 chronic pain, diverticulitis, hidradenitis suppurativa presents to the emergency department for right ear pain and right facial pain. Patient states 2 weeks ago she noticed crusty discharge in her right ear. Patient states the symptoms progressed and now she is having right-sided facial pain and right outer ear pain. Patient denies fevers, chills, nausea, vomiting. Patient states her pain is currently an 8/10. Patient denies alleviating or inciting factors. Historical: - Allergies: 10:57 Bentyl; ll1 10:57 Compazine; ll1 10:57 Demerol (Itching); ll1 10:57 Latex; ll1 - PMHx: 10:57 Degenerative disc disease; lymphedema; Chronic pain; Diverticulitis; Hidradenitis ll1 Suppurativa; Pancreatitis; - PSHx: 10:57 back sx; Cholecystectomy; hysterectomy; multiple orthopedic surgeries; ll1 - Immunization history:: Adult Immunizations up to date. - Social history:: Smoking status: Patient denies any tobacco usage or history of. ROS: 11:17 Constitutional: Negative for fever, and chills. Neck: Negative for injury, pain, and ms3 swelling, Cardiovascular: Negative for chest pain, and palpitations. Respiratory: Negative for shortness of breath, cough, wheezing, and pleuritic chest pain, Abdomen/GI: Negative for abdominal pain, nausea, vomiting, diarrhea, and constipation, MS/Extremity: Negative for injury and deformity, 11:17 Skin: Positive for cellulitis, 11:17 All other systems are negative, Exam: 11:17 Constitutional: This is a well developed, well nourished patient who is awake, alert, ms3 and in no acute distress. Chest/axilla: Normal chest wall appearance and motion. Nontender with no deformity. Cardiovascular: Regular rate and rhythm with a normal S1 and S2. No gallops, murmurs, or rubs. Normal PMI, no JVD. No pulse deficits. Respiratory: Lungs have equal breath sounds bilaterally, clear to auscultation and percussion. No rales, rhonchi or wheezes noted. No increased work of breathing, no retractions or nasal flaring. Abdomen/GI: Soft, non-tender, with normal bowel sounds. No distension or tympany. No guarding or rebound. No evidence of tenderness throughout. 11:17 Skin: cellulitis, that is mild, on the right ear, right face, Vital Signs: 11:05 BP 153 / 79; Pulse 84; Resp 18; Temp 97.9; Pulse Ox 97% on R/A; Weight 127.01 kg; ll1 Height 5 ft. 5 in. ; Pain 8/10; 11:05 Body Mass Index 46.59 (127.01 kg, 165.1 cm) ll1 11:05 Pain Scale: Adult ll1 MDM: 11:16 Patient medically screened. ms3 11:17 Differential diagnosis: otitis externa, Cellulitis. Data reviewed: vital signs, nurses ms3 notes, and as a result, I will discharge patient. Counseling: I had a detailed discussion with the patient and/or guardian regarding the historical points, exam findings, and any diagnostic results supporting the discharge/admit diagnosis, the need for outpatient follow up, to return to the emergency department if symptoms worsen or persist or if there are any questions or concerns that arise at home. Special discussion: I discussed with the patient/guardian in detail that at this point there is no indication for admission to the hospital. It is understood, however, that if the symptoms persist or worsen the patient needs to return immediately for re-evaluation. ED course: Discussed doxycycline prescription with patient. Patient to follow-up with primary care physician in 2 to 3 days. Patient understands and agrees with plan. All questions were answered. Return precautions discussed include worsening symptoms, or any other concerns. Administered Medications: No medications were administered Disposition Summary: 03/17/23 11:17 Discharge Ordered Notes: Location: Home ms3 Condition: Stable ms3 Diagnosis - Cellulitis of face ms3 Followup: ms3 - With: Angelo, Fortino, DO - When: 2 - 3 days - Reason: Recheck today's complaints Discharge Instructions: - Discharge Summary Sheet ms3 - Cellulitis, Adult ms3 Forms: - Medication Reconciliation Form ms3 - Thank You Letter ms3 - Antibiotic Education ms3 - Prescription Opioid Use ms3 - Patient Portal Instructions ms3 - Leadership Thank You Letter ms3 Prescriptions: - Cipro 250 mg Oral tablet - take 3 tablet ORAL route every 12 hours; 14 tablet; Refills: 0, Product ms3 Selection Permitted - Fluconazole 150 mg Oral Tablet - take 1 tablet ORAL route once daily; 30 tablet; Refills: 0, Product Selection ms3 Permitted Signatures: Jacklyn Carreno RN RN ll1 Derian Camacho DO DO ms3
[2023-03-17 11:30] VITALS: BP 153/79; TEMP 97.9; O2SAT 97
== END 2023-03-17 11:34 | disposition home or self-care (01) ==
LOC: ER 10:47
DX: L03.211 Cellulitis of face (principal); I89.0 Lymphedema, not elsewhere classified; G89.29 Other chronic pain
CPT/HCPCS: 99283

== ENCOUNTER 2023-04-14 11:40 | Day surgery (SDC) | payer BC ==
[2023-04-14] MEDS ORDERED: Ringers Lactate 1,000 ML IV ONE (12:24)
[2023-04-14] MEDS ORDERED: CEFAZOLIN SODIUM 2 GM/VIAL ONE (12:24)
--- NOTE | 2023-04-14 15:05 | EKG ---
Test Date: 2023-04-14 Test Time: 10:35:51 Supervisor Pyrotechnic Loading: ASHLEY MEASUREMENT RESULTS: Intervals: Rate: 82 ID: [id number] QRSD: 90 QT: 398 QTc: 464 [place]: P: 42 ID: [id number] QRS: 11 T: 42 INTERPRETIVE STATEMENTS: Sinus rhythm with occasional premature ventricular complexes Cannot rule out Anterior infarct, age undetermined Abnormal ECG Compared to ECG 09/17/2022 13:03:05 Ventricular premature complex(es) now present Myocardial infarct finding now present Electronically Signed On 04-14-23 15:04:50 [employer]ABBLE FURNACE TENDER by Hammad Villatoro
[2023-04-14] MEDS ORDERED: BUPIVACAINE 0.25% PF 10 ML VIAL ONE (15:12)
[2023-04-14] MEDS ORDERED: FENTANYL CITR 100 MCG/2 ML ONE (15:23)
[2023-04-14] MEDS ORDERED: propofoL 200 MG/20 ML VIAL IV ONE (15:23)
[2023-04-14] MEDS ORDERED: MIDAZOLAM HCL 2 MG/2 ML INJ ONE (15:24)
[2023-04-14] MEDS: LIDOCAINE HCL/EPINEPHRINE 20 ML MDV ONE ×2 (15:44→15:50)
--- NOTE | 2023-04-14 15:58 | P.OP ---
Preoperative diagnosis: RIGHT Axillary Hidradenitis with Abscess Postoperative diagnosis: RIGHT Axillary Hidradenitis with Abscess Primary procedure: Wide local excision of RIGHT Axillary Hidradenitis with Abscess Anesthesia: GETA + Local Estimated blood loss: <5cc Specimen: Cultures, Axillary Tissue Findings: ~ 3cm x 2 cm into subcutaneous fat RIGHT Axillary Hidradenitis with Abscess Complications: None Transferred to: Recovery Room Condition: Good
[2023-04-14] MEDS ORDERED: KETOROLAC 30 MG/ML INJ ONE (16:17)
[2023-04-14] MEDS: MORPHINE 4 MG/ML SYR ONE ×3 (16:22→16:34)
[2023-04-14] MEDS ORDERED: MORPHINE 4 MG/ML SYR ONE (16:33)
--- NOTE | 2023-04-14 16:49 | OP ---
Date of Procedure: 04/14/2023 Surgeon: Nazario Major MD, Preoperative Diagnosis: Right axillary hidradenitis with abscess. Postoperative Diagnosis: Right axillary hidradenitis with abscess. Procedure Performed: Wide local excision of right axillary hidradenitis with abscess. Anesthesia: General endotracheal plus local 0.25% Marcaine. Estimated Blood Loss: Less than 5 cc. Specimen: Cultures sent for both aerobic and anaerobic speciation as well as axillary tissue. Findings: Approximately 3 cm x 2 cm abscess/hidradenitis into the subcutaneous fat consistent with a right axillary hidradenitis with abscess. Complications: None. Disposition: Patient transferred to recovery room in good condition. Procedure In Detail: After informed consent was obtained, patient was brought to the operating room, prepped and draped in the usual sterile fashion after adequate anesthesia was achieved. I anestheti zed the area of the right axillary cyst with abscess down to subcutaneous tissues. I made a 15 blade incision down through subcutaneous tissue made in elliptical fashion down circumferentially dissecti ng using electrocautery around the abscess cavity. Abscess material was immediately encountered. Th is was sent for both aerobic and anaerobic speciation for culture. The cystic cavity was removed in its entirety down to good bleeding healthy tissue. Hemostasis was achieved with electrocautery. The area was then irrigated copiously and closed with 2-0 interrupted nylon sutures with good approximat ion of tissues. Sterile dressing was placed over top. The patient tolerated the procedure without incident or complication, transferred to PACU in good condition. All counts were c orrect at the end of the case. GLYNN/CLIFTON Voice ID: [id number] Report ID: [id number]
[2023-04-14] MEDS ORDERED: HYDROCODONE/APAP 10/325 TAB ONE (16:55)
[2023-04-14 17:25] VITALS: O2SAT 98
[2023-04-14 17:36] VITALS: BP 110/73; TEMP 97
== END 2023-04-14 17:30 | disposition home or self-care (01) ==
LOC: OR 11:40
PROVIDERS: ATTEND Surgery
PROC: 0JBD0ZZ Excision of Right Upper Arm Subcutaneous Tissue and Fascia, Open Approach (ICD-10-PCS; principal; 2023-04-14 14:45)
DX: L73.2 Hidradenitis suppurativa (principal); L02.411 Cutaneous abscess of right axilla
CPT/HCPCS: 93005; 87070; 80048; 36415; 87205; 88304; 87075; 87077; 87186; 11450; J2704; J2250; J3010; J7120

== ENCOUNTER → 2023-05-05 | Emergency (ER) | payer BC, OTHER ==
[~2023-05-05] MED LIST: FAMOTIDINE 20 MG/2 ML VIAL IV ONE; HYDROMORPHONE ORAL 2 MG TAB ONE; METOCLOPRAMIDE 10 MG/2mL INJ ONE; MORPHINE 2 MG/ML SYR ONE; MORPHINE 4 MG/ML SYR ONE; ONDANSETRON 4 MG/2 ML VIAL ONE; PANTOPRAZOLE 40 MG INJ ONE
[2023-05-05 23:35] LABS: Absolute Lymphocytes (CBC) 2.3 K/uL (0.7-4.9); Lymphocytes % 28.3 % (15.3-44.8); MPV 8.2 fL (7.6-11.3); Platelets 193 thou/uL (152-406); RBC Red Blood Cell Count 3.91 M/uL (3.86-4.86)
[2023-05-05 23:52] LABS: Albumin 3.3 g/dL (3.4-5.0); Bilirubin Total 0.3 mg/dL (0.2-1.0); Potassium 3.7 mEq/L (3.5-5.1); Protein, Total 7.9 g/dL (6.4-8.2)
[2023-05-06 00:44] LABS: Specific Gravity 1.012 (1.005-1.030); Urine Bacteria <20 /HPF (<20); Urine Bilirubin NEGATIVE (Negative); Urine Blood Negative (Negative); Urine Clarity Turbid (Clear); Urine Color Light-Yellow (Yellow); Urine Glucose 2+ (Negative); Urine Mucus Slight /HPF (None Seen); Urine Protein NEGATIVE (Negative); Urine RBC <5 /HPF (None Seen); Urine Urobilinogen Normal (Normal)
--- NOTE | 2023-05-06 02:32 | ER ---
Nurse's Notes [facility] Name: Siri Rutherford Age: 57 yrs Sex: Female : 1965 Arrival Date: 05/05/2023 Time: 21:57 Bed 16 Private MD: Diagnosis: Acid Reflux, odynophagia, diffuse abdominal pain Presentation: 05/05 22:15 Chief complaint: Patient states: midsternal chest pain for 2 days that feels like it is km8 "on fire" and eating and drinking makes the pain worse. Coronavirus screen: Client denies travel out of the [place] in the last 14 days. Ebola Screen: No symptoms or risks identified at this time. Initial Sepsis Screen: Does the patient meet any 2 criteria? No. Patient's initial sepsis screen is negative. Does the patient have a suspected source of infection? No. Patient's initial sepsis screen is negative. Risk Assessment: Do you want to hurt yourself or someone else? Patient reports no desire to harm self or others. Onset of symptoms was May 03, 2023. 22:15 Method Of Arrival: Wheelchair km8 22:15 Acuity: MARILU 3 km8 Triage Assessment: 22:15 General: Appears in no apparent distress. comfortable, Behavior is calm, cooperative, km8 appropriate for age. Pain: Complains of pain in xiphoid area Pain currently is 9 out of 10 on a pain scale. Quality of pain is described as burning, Pain began gradually, Aggravated by eating, drinking. EENT: No signs and/or symptoms were reported regarding the EENT system. Neuro: Level of Consciousness is awake, alert, obeys commands, Oriented to person, place, time, situation. Cardiovascular: Reports chest pain, Denies shortness of breath, Capillary refill < 3 seconds Patient's skin is warm and dry. Chest pain is described as severe, quality is burning, is located in anterior epigastric area began 2 days. Respiratory: Airway is patent Respiratory effort is even, unlabored, Respiratory pattern is regular, symmetrical. GI: Reports constipation. : No signs and/or symptoms were reported regarding the genitourinary system. Derm: No signs and/or symptoms reported regarding the dermatologic system. Skin is intact, is healthy with good turgor, Skin is dry, Skin is pink, warm \\T\\ dry. normal, Skin temperature is warm. Musculoskeletal: Circulation, motion, and sensation intact. Range of motion: intact in all extremities. Historical: - Allergies: 22:19 Bentyl; km8 22:19 Compazine; km8 22:19 Demerol (Itching); km8 22:19 Latex; km8 - PMHx: 22:19 Arthritis; Chronic pain; Degenerative disc disease; Diverticulitis; Hidradenitis km8 Suppurativa; Hypertensive disorder; lymphedema; Pancreatitis; - PSHx: 22:19 back sx; Cholecystectomy; hysterectomy; multiple orthopedic surgeries; km8 - Immunization history:: Client reports receiving the 2nd dose of the Covid vaccine, Flu vaccine is not up to date. - Social history:: Smoking status: Patient reports the use of cigarette tobacco products, smokes one pack cigarettes per day. Reported history of juuling and/or vaping. Patient uses alcohol, occasionally. Patient/guardian denies using street drugs. - Family history:: not pertinent. Screenin:31 [facility] ED Fall Risk Assessment (Adult) History of falling in the last 3 months, jw7 including since admission No falls in past 3 months (0 pts) Score/Fall Risk Level 0 - 2 = Low Risk Oriented to surroundings, Maintained a safe environment, Educated pt \\T\\ family on fall prevention, incl call for assistance when getting out of bed. Abuse screen: Denies threats or abuse. Denies injuries from another. Nutritional screening: No deficits noted. Tuberculosis screening: No symptoms or risk factors identified. Assessment: 22:20 General: See triage assessment. jw7 23:31 Reassessment: Patient appears in no apparent distress at this time. No changes from jw7 previously documented assessment. Patient and/or family updated on plan of care and expected duration. Pain level reassessed. Patient is alert, oriented x 3, equal unlabored respirations, skin warm/dry/pink. 23:38 General: Medication dosages confirmed with Provider before administering. jw7 05/06 00:30 Reassessment: Patient appears in no apparent distress at this time. Patient and/or jw7 family updated on plan of care and expected duration. Pain level reassessed. Patient is alert, oriented x 3, equal unlabored respirations, skin warm/dry/pink. 01:30 Reassessment: Patient appears in no apparent distress at this time. Patient and/or jw7 family updated on plan of care and expected duration. Pain level reassessed. Patient is alert, oriented x 3, equal unlabored respirations, skin warm/dry/pink. 02:43 Reassessment: Patient appears in no apparent distress at this time. Patient and/or jw7 family updated on plan of care and expected duration. Pain level reassessed. Patient is alert, oriented x 3, equal unlabored respirations, skin warm/dry/pink. Patient states feeling better. Patient states symptoms have improved. Vital Signs: 05/05 22:15 BP 141 / 78; Pulse 90; Resp 16; Temp 98.3(O); Pulse Ox 97% on R/A; Weight 129.27 kg [facility] (R); Height 5 ft. 5 in. (R); Pain 9/10; 23:31 BP 123 / 68; Pulse 84; Resp 15 S; Pulse Ox 99% on R/A; [facility] 05/06 00:00 BP 120 / 74; Pulse 78; Resp 20 S; Pulse Ox 97% on R/A; 7 01:00 BP 139 / 68; Pulse 83; Resp 17 S; Pulse Ox 95% on R/A; [facility] 02:00 BP 146 / 87; Pulse 82; Resp 16 S; Pulse Ox 96% on R/A; [facility] 05/05 22:15 Body Mass Index 47.43 (129.27 kg, 165.1 cm) [facility] 05/05 22:15 Pain Scale: Adult [facility] Rene Coma Score: 01:27 Eye Response: spontaneous(4). Motor Response: obeys commands(6). Verbal Response: sp4 oriented(5). Total: 15. ED Course: 05/05 22:05 Patient arrived in ED. gm2 22:10 Rafal Choi MD is Attending Physician. sp4 22:15 Arm band placed on right wrist. km8 22:17 Triage completed. 8 22:27 Laura Quigley RN is Primary Nurse. 7 23:12 Radiology exam delayed due to lab results not completed at this time. (BUN/Creatinine) eh4 IV insertion attempt and/or patient not having appropriate IV at this time. 23:29 Initial lab(s) drawn, by ED staff, sent to lab. EKG done, by ED staff, reviewed by jwKatie Choi MD. Inserted saline lock: 22 gauge in right antecubital area, using aseptic technique. Blood collected. 23:31 Patient has correct armband on for positive identification. Bed in low position. Call jw7 light in reach. 23:32 No provider procedures requiring assistance completed. jw7 05/06 00:46 CT Chest, Abdomen, Pelvis - W/Contrast In Process Unspecified. EDMS 02:30 Nazario Major MD is Referral Physician. sp4 02:33 IV discontinued, intact, bleeding controlled, No redness/swelling at site. Pressure km8 dressing applied. 02:44 Provided Education on: discharge instructions and medications. jw7 Administered Medications: 00:24 Drug: Pantoprazole IVP 40 mg IVP once Route: IVP; Site: right antecubital; jw7 02:12 Follow up: Response: No adverse reaction jw7 00:25 Drug: Ondansetron IVP 4 mg IVP once; over 2 minutes Route: IVP; Site: right antecubital;jw7 02:13 Follow up: Response: No adverse reaction jw7 00:25 Drug: morphine IVP or IV 4 mg IVP once over 4 mins Route: IVP; Infused Over: 4 mins; jw7 Site: right antecubital; 02:13 Follow up: Response: No adverse reaction jw7 00:25 Drug: morphine IVP or IV 6 mg IVP once over 4 mins Route: IVP; Infused Over: 4 mins; jw7 Site: right antecubital; 02:13 Follow up: Response: No adverse reaction jw7 00:25 Drug: metoCLOPramide IVP 20 mg IVP once; over 15 mins Route: IVP; Site: right jw7 antecubital; 02:12 Follow up: Response: No adverse reaction jw7 00:25 Drug: Famotidine IVP 20 mg IVP once; dilute with 10 mL 0.9% NaCl; give over 2 minutes jw7 Route: IVP; Site: right antecubital; 02:12 Follow up: Response: No adverse reaction jw7 02:33 Drug: HYDROmorphone PO 2 mg PO once Route: PO; km8 02:44 Follow up: Response: No adverse reaction jw7 Medication: 05/05 23:32 VIS not applicable for this client. jw7 Outcome: 01/13 02:31 Discharge ordered by MD. byrnes 02:44 Discharged to home via wheelchair, with family, jw7 02:44 Condition: stable 02:44 Discharge instructions given to patient, Instructed on discharge instructions, follow up and referral plans. medication usage, Demonstrated understanding of instructions, follow-up care, medications, Prescriptions given X 3, 02:44 Patient left the ED. jw7 Signatures: Dispatcher [employer] EDMS Laura Quigley, RN RN jw7 Mariusz Swartz [facility] Rafal Choi MD MD sp4 Kaylan Vasquez 2 Raven Hernandez, RN RN km8
--- NOTE | 2023-05-06 02:32 | EDPHYS ---
Physician Documentation [facility] Name: Siri Rutherford Age: 57 yrs Sex: Female : 1965 Arrival Date: 05/05/2023 Time: 21:57 Bed 16 Private MD: ED Physician Rafal Choi HPI: 05/06 00:27 This 57 yrs old Female presents to ER via Wheelchair with complaints of sp4 Difficulty Swallowing, Heartburn 2 days. 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 Patient denied vomiting but reports that she feels like food is getting stuck in her esophagus.. Patient takes metoprolol daily, spironolactone daily, Dilaudid 2 mg twice a day for chronic pain. . 01:25 PMH - Allergies: 02:43Bentyl; Compazine; Demerol (Itching); Latex; as6 PMHx: Chronic sp4 pain; Degenerative disc disease; Hidradenitis Suppurativa; Pancreatitis; Diverticulitis; lymphedema; Hypertensive disorder; Arthritis PSHx: multiple orthopedic surgeries; hysterectomy; Cholecystectomy; back . 01:25 Patient's associated symptoms include heartburn, diffuse abdominal ache, odynophagia, sp4 sensation of dysphagia.. Historical: - Allergies: 05/05 22:19 Bentyl; km8 22:19 Compazine; km8 22:19 Demerol (Itching); km8 22:19 Latex; km8 - PMHx: 22:19 Arthritis; Chronic pain; Degenerative disc disease; Diverticulitis; Hidradenitis km8 Suppurativa; Hypertensive disorder; lymphedema; Pancreatitis; - PSHx: 22:19 back sx; Cholecystectomy; hysterectomy; multiple orthopedic surgeries; km8 - Immunization history:: Client reports receiving the 2nd dose of the Covid vaccine, Flu vaccine is not up to date. - Social history:: Smoking status: Patient reports the use of cigarette tobacco products, smokes one pack cigarettes per day. Reported history of juuling and/or vaping. Patient uses alcohol, occasionally. Patient/guardian denies using street drugs. - Family history:: not pertinent. ROS: 05/06 01:25 Constitutional: Negative for fever, chills, and weight loss, positive heartburn, sp4 positive abdominal pain, positive pain on swallowing, positive sensation of dysphagia. Positive nausea All other systems are negative, Exam: 00:23 Constitutional: This is a well developed, well nourished patient who is awake, alert, sp4 and in no acute distress. Head/Face: Normocephalic, atraumatic. Eyes: Pupils equal round and reactive to light, extra-ocular motions intact. Lids and lashes normal. Conjunctiva and sclera are not injected. Cornea within normal limits. Periorbital areas with no swelling, redness, or edema. ENT: Nares patent. No nasal discharge, no septal abnormalities noted. Tympanic membranes are normal and external auditory canals are clear. Oropharynx with no redness, swelling, or masses, exudates, or evidence of obstruction, uvula midline. Mucous membranes moist. Neck: Trachea midline, no thyromegaly or masses palpated, and no cervical lymphadenopathy. Supple, full range of motion without nuchal rigidity, or vertebral point tenderness. Chest/axilla: Normal chest wall appearance and motion. Nontender with no deformity. No lesions are appreciated. Cardiovascular: Regular rate and rhythm with a normal S1 and S2. No gallops, murmurs, or rubs. Normal PMI, no JVD. No pulse deficits. Respiratory: Lungs have equal breath sounds bilaterally, clear to auscultation and percussion. No rales, rhonchi or wheezes noted. No increased work of breathing, no retractions or nasal flaring. Abdomen/GI: Soft, with normal bowel sounds. No distension or tympany. No guarding or rebound. Posittive diffuse abdominal discomfort , Back: No spinal tenderness. No costovertebral tenderness. There is sacral decubitus ulcer that is covered by the wound VAC. Positive extensive scarring from prior surgery Skin: Warm, dry with normal turgor. Normal color with no rashes, no lesions, and no evidence of cellulitis. MS/ Extremity: Pulses equal, no cyanosis. Neurovascular intact. Full, normal range of motion. Neuro: Awake and alert, GCS 15, oriented to person, place, time, and situation. Cranial nerves II-XII grossly intact. Motor strength 5/5 in all extremities. Sensory grossly intact. Psych: Awake, alert, with orientation to person, place and time. Behavior, mood, and affect are within normal limits 00:23 ECG was reviewed by the Attending Physician. Normal sinus rhythm at the rate of 76. No ST elevation or depression, normal EKG. EKG time 22 40 Vital Signs: 05/05 22:15 BP 141 / 78; Pulse 90; Resp 16; Temp 98.3(O); Pulse Ox 97% on R/A; Weight 129.27 kg [facility] (R); Height 5 ft. 5 in. (R); Pain 9/10; 23:31 BP 123 / 68; Pulse 84; Resp 15 S; Pulse Ox 99% on R/A; jw7 05/06 00:00 BP 120 / 74; Pulse 78; Resp 20 S; Pulse Ox 97% on R/A; jw7 01:00 BP 139 / 68; Pulse 83; Resp 17 S; Pulse Ox 95% on R/A; 7 02:00 BP 146 / 87; Pulse 82; Resp 16 S; Pulse Ox 96% on R/A; 7 05/05 22:15 Body Mass Index 47.43 (129.27 kg, 165.1 cm) [facility] 05/05 22:15 Pain Scale: Adult [facility] Coma Score: 01:27 Eye Response: spontaneous(4). Motor Response: obeys commands(6). Verbal Response: sp4 oriented(5). Total: 15. MDM: 05/05 22:11 Patient medically screened. sp4 05/06 02:23 ED course: CT - EXAM: CT Chest, Abdomen and Pelvis With Intravenous Contrast CLINICAL sp4 HISTORY: The patient is 57 years old and is Female; CHEST PAIN, CONSTIPATION TECHNIQUE: Axial computed tomography images of the chest, abdomen and pelvis with intravenous contrast. Sagittal and coronal reformatted images were created and reviewed. This CT exam was performed using one or more of the following dose reduction techniques: automated exposure control, adjustment of the mA and/or kV according to patient size, and/or use of iterative reconstruction technique. COMPARISON: No relevant prior studies available. FINDINGS: CHEST: Lungs: Unremarkable. No mass. No consolidation. Pleural space: Unremarkable. No significant effusion. No pneumothorax. Heart: Unremarkable. No cardiomegaly. No significant pericardial effusion. No significant coronary artery calcifications. ABDOMEN: Liver: Hepatomegaly with diffuse hepatic steatosis. Gallbladder and bile ducts: Gallbladder is surgically absent. No ductal dilation. Pancreas: Unremarkable. No ductal dilation. No mass. Spleen: Mild splenomegaly. Adrenals: Unremarkable. No mass. Kidneys and ureters: Unremarkable. No hydronephrosis. No solid mass. Stomach and bowel: Scattered colonic diverticula. No obstruction. No mucosal thickening. PELVIS: Appendix: The appendix is normal. Bladder: Bladder is distended. Reproductive: Unremarkable as visualized. CHEST, ABDOMEN and PELVIS: Intraperitoneal space: Unremarkable. No significant fluid collection. No free air. Bones/joints: Scoliosis with dave and screw fixation stabilization throughout the spine. No acute fracture. No dislocation. Soft tissues: Unremarkable. Vasculature: Unremarkable. No aortic aneurysm. Lymph nodes: Unremarkable. No enlarged lymph nodes. IMPRESSION: No acute findings in the chest, abdomen or pelvis.. 02:34 Differential diagnosis: gastroesophageal reflux disease, pharyngitis, sp4 tracheobronchitis, viral syndrome. Data reviewed: vital signs, nurses notes, lab test result(s), EKG, radiologic studies, CT scan. Consideration of Admission/Observation Escalation of care including admission/observation considered. ED course: Patient reported some abdominal discomfort, epigastric pain, odynophagia and feeling that food is getting stuck in the esophagus. CT revealed no signs of esophageal problems. However patient warrants follow-up with her general surgeon for upper endoscopy to rule out additional esophageal pathology. Patient was strongly advised to see her general surgeon in 2 to 4 weeks for upper endoscopy. Additionally advised to increase antiacids - omeprazole to 40 mg daily and add famotidine 40 mg daily as well. 05/05 22:11 Order name: CBC with Diff; Complete Time: 00:23 [facility] 05/05 22:11 Order name: CMP; Complete Time: 00:23 [facility] 05/05 22:11 Order name: Lipase; Complete Time: 00:23 [facility] 05/05 23:06 Order name: Urinalysis W/Microscopic; Complete Time: 01:11 [facility] 05/05 23:05 Order name: CT Chest, Abdomen, Pelvis - W/Contrast [facility] 05/05 22:30 Order name: EKG; Complete Time: 22:31 km8 05/05 22:11 Order name: IV Saline Lock; Complete Time: 23:35 sp4 05/05 22:11 Order name: Labs collected and sent; Complete Time: 23:35 sp4 05/05 22:30 Order name: EKG - Nurse/Tech; Complete Time: 22:54 km8 EC:23 Rate is 76 beats/min. Rhythm is regular, Normal Sinus Rhythm. QRS [place] is Normal. [place] sp4 interval is normal. QRS interval is normal. QT interval is normal. No Q waves. T waves are Normal. No ST changes noted. Clinical impression: Normal ECG. Interpreted by me. Reviewed by me. Administered Medications: 00:24 Drug: Pantoprazole IVP 40 mg IVP once Route: IVP; Site: right antecubital; jw7 02:12 Follow up: Response: No adverse reaction jw7 00:25 Drug: Ondansetron IVP 4 mg IVP once; over 2 minutes Route: IVP; Site: right antecubital;jw7 02:13 Follow up: Response: No adverse reaction jw7 00:25 Drug: morphine IVP or IV 4 mg IVP once over 4 mins Route: IVP; Infused Over: 4 mins; jw7 Site: right antecubital; 02:13 Follow up: Response: No adverse reaction jw7 00:25 Drug: morphine IVP or IV 6 mg IVP once over 4 mins Route: IVP; Infused Over: 4 mins; jw7 Site: right antecubital; 02:13 Follow up: Response: No adverse reaction jw7 00:25 Drug: metoCLOPramide IVP 20 mg IVP once; over 15 mins Route: IVP; Site: right jw7 antecubital; 02:12 Follow up: Response: No adverse reaction jw7 00:25 Drug: Famotidine IVP 20 mg IVP once; dilute with 10 mL 0.9% NaCl; give over 2 minutes jw7 Route: IVP; Site: right antecubital; 02:12 Follow up: Response: No adverse reaction jw7 02:33 Drug: HYDROmorphone PO 2 mg PO once Route: PO; 8 02:44 Follow up: Response: No adverse reaction jw7 Disposition Summary: 05/06/23 02:31 Discharge Ordered Problem: new sp4 Symptoms: have improved sp4 Condition: Stable sp4 Diagnosis - Acid Reflux, odynophagia, diffuse abdominal pain sp4 Followup: sp4 - With: Nazario Major MD - When: 10 - 14 days - Reason: Recheck today's complaints Discharge Instructions: - Discharge Summary Sheet sp4 - Gastroesophageal Reflux Disease, Adult, [id number] sp4 Forms: - Patient Portal Instructions sp4 Prescriptions: - famotidine 20 mg Oral tablet - take 2 tablet ORAL route daily; 60 tablet; Refills: 0, Product Selection sp4 Permitted - omeprazole 40 mg Oral capsule,delayed release (e.c.) - take 1 capsule ORAL route daily; 30 capsule; Refills: 0, Product Selection sp4 Permitted - ondansetron 8 mg Oral Tablet,disintegrating - take 1 tablet ORAL route every 6 hours PRN nausea; 30 tablet; Refills: 0, sp4 Product Selection Permitted Signatures: Dispatcher [employer] Laura Arriola, LEXI RN jw7 Rafal Choi MD MD sp4 Raven Hernandez RN RN km8
[2023-05-06 05:11] VITALS: TEMP 98.3
[2023-05-06 05:34] VITALS: BP 146/87; O2SAT 96
--- NOTE | 2023-05-06 18:30 | RAD REPORT ---
EXAM DESCRIPTION: CT Chest, Abdomen and Pelvis With Intravenous Contrast CLINICAL HISTORY: The patient is 57 years old and is Female; CHEST PAIN, CONSTIPATION TECHNIQUE: Axial computed tomography images of the chest, abdomen and pelvis with intravenous contra st. Sagittal and coronal reformatted images were created and reviewed. This CT exam was performed using one or more of the following dose reduction techniques: automated exposure control, adjustme nt of the mA and/or kV according to patient size, and/or use of iterative reconstruction technique. COMPARISON: No relevant prior studies available. FINDINGS: CHEST: Lungs: Unremarkable. No mass. No consolidation. Pleural space: Unremarkable. No significant effusion. No pneumothorax. Heart: Unremarkable. No cardiomegaly. No significant pericardial effusion. No significant c oronary artery calcifications. ABDOMEN: Liver: Hepatomegaly with diffuse hepatic steatosis. Gallbladder and bile ducts: Gallbladder is surgically absent. No ductal dilation. Pancreas: Unremarkable. No ductal dilation. No mass. Spleen: Mild splenomegaly. Adrenals: Unremarkable. No mass. Kidneys and ureters: Unremarkable. No hydronephrosis. No solid mass. Stomach and bowel: Scattered colonic diverticula. No obstruction. No mucosal thickening. PELVIS: Appendix: The appendix is normal. Bladder: Bladder is distended. Reproductive: Unremarkable as visualized. CHEST, ABDOMEN and PELVIS: Intraperitoneal space: Unremarkable. No significant fluid collection. No free air. Bones/joints: Scoliosis with dave and screw fixation stabilization throughout the spine. No acute fracture. No dislocation. Soft tissues: Unremarkable. Vasculature: Unremarkable. No aortic aneurysm. Lymph nodes: Unremarkable. No enlarged lymph nodes. IMPRESSION: No acute findings in the chest, abdomen or pelvis. Electronically signed by: Ben Lea MD 05/06/2023 02:05 AM SCHOOL MANAGER Due to temporary technical issues with the PACS/Fluency reporting system, reports are being signed by the in house radiologists without review as a courtesy to insure prompt reporting. The interpreting radiologist is fully responsible for the content of the report.
--- NOTE | 2023-05-08 17:05 | EKG ---
Test Date: 2023-05-05 Test Time: 22:40:19 Agricultural Service Technician: AWAIS MEASUREMENT RESULTS: Intervals: Rate: 76 SD: 182 QRSD: 90 QT: 412 QTc: 463 [place]: P: 49 SD: 182 QRS: 43 T: 48 INTERPRETIVE STATEMENTS: Normal sinus rhythm Cannot rule out Anterior infarct, age undetermined Abnormal ECG Compared to ECG 04/14/2023 10:35:51 Ventricular premature complex(es) no longer present Myocardial infarct finding still present Electronically Signed On 05-08-23 16:59:24 ELECTROSLAG WELDING MACHINE OPERATOR by Hammad Villatoro
== END ==
LOC: ER 21:57
DX: K21.9 Gastro-esophageal reflux disease without esophagitis (principal); R13.10 Dysphagia, unspecified; R10.9 Unspecified abdominal pain; F17.210 Nicotine dependence, cigarettes, uncomplicated; I10 Essential (primary) hypertension; Z88.1 Allergy status to other antibiotic agents; Z88.5 Allergy status to narcotic agent; Z88.8 Allergy status to other drugs, medicaments and biological substances; Z91.040 Latex allergy status
CPT/HCPCS: 93005; 85025; 81001; 36415; 83690; 80053; 71260; 74177; 96375; 96374; 99284; Q9967; J2765; C9113; J2270; J2405

== ENCOUNTER 2024-08-17 09:24 | Emergency (ER) | payer BC, OTHER ==
[2024-08-17] MEDS ORDERED: MORPHINE 4 MG/ML SYR ONE (09:51)
[2024-08-17 10:02] LABS: Absolute Eosinophils 0.2 K/uL (0-0.5); Absolute Lymphocytes (CBC) 1.5 K/uL (0.7-4.9); Absolute Monocytes 0.4 K/uL (0.1-1.3); Absolute Neutrophil 4.4 K/uL (1.8-8.0); Basophils % 0.4 % (0-1.3); Eosinophils % 3.3 % (0-4.4); Hematocrit 38.2 % (36.0-45.0); Hemoglobin 13.3 g/dL (12.0-15.0); Lymphocytes % 23.7 % (15.3-44.8); MCH 31.7 pg (27.0-35.0); MCHC 34.9 g/dL (32.0-36.0); MPV 8.7 fL (7.6-11.3); Monocytes % 5.5 % (3.3-12.3); Neutrophils % 67.1 % (41.7-73.7); Nucleated Red Blood Cells % 0.1 % (0-0); Platelets 170 thou/uL (152-406); RBC Red Blood Cell Count 4.19 M/uL (3.86-4.86); Red Cell Distribution Width 13.8 % (12.1-15.2)
[2024-08-17 10:14] LABS: Albumin/Globulin Ratio 0.8 (1.1-1.8); Anion Gap 10.5 mEq/L (5.0-15.0); Bilirubin Total 0.6 mg/dL (0.2-1.0); Globulin 3.9 g/dL (2.3-3.5); Potassium 3.5 mEq/L (3.5-5.1); Protein, Total 6.9 g/dL (6.4-8.2)
[2024-08-17] MEDS ORDERED: ONDANSETRON 4 MG/2 ML VIAL ONE (10:34)
[2024-08-17] MEDS ORDERED: HYDROMORPHONE HCL 1 MG/ML INJ ONE (10:34)
--- NOTE | 2024-08-17 11:30 | RAD REPORT ---
EXAMINATION: Abdomen Pelvis W Contrast CLINICAL INDICATION: Female, 58 years old.ABD PAIN TECHNIQUE: CT abdomen and pelvis was performed, after the administration of IV contrast, as per [facility]. Axial, sagittal and coronal reconstructions were obtained. One or more of the following dose reduction techniques were used: Automated exposure control, adjustment of the mA and/o r kV according to patient size, and/or iterative reconstruction. Unless otherwise specified, incidental findings do not require dedicated imaging follow-up. [id number]. COMPARISON: 09/17/2022 FINDINGS: LOWER CHEST: No acute process identified.No significant pericardial effusion. UPPER GI: No significant abnormality. LIVER: Hepatic steatosis, but otherwise unremarkable. GALLBLADDER/BILE DUCTS: Cholecystectomy. Mild extra-hepatic biliary ductal dilatation is likely relat ed to the post-cholecystectomy state. Consider correlating with LFT's.? PANCREAS: No mass, ductal dilation, or mallorie-pancreatic fluid. SPLEEN: Unremarkable. ADRENALS: No adrenal masses. KIDNEYS AND URETERS: No hydronephrosis.No suspicious renal mass.Nonobstructing renal calculi.No urete ral calculi. ABDOMINAL AORTA AND OTHER VESSELS: Mild atherosclerotic changes. PERITONEUM: No abnormal free fluid. No free air. LYMPH NODES: No pathologic lymphadenopathy. ABDOMINAL WALL: Small fat containing umbilical hernia. SMALL BOWEL/COLON: Scattered mild fluid present within the distal small bowel and proximal colon.Norm al appendix. URINARY BLADDER: Underdistended but grossly unremarkable. REPRODUCTIVE ORGANS: No pathologic process. MUSCULOSKELETAL: Fusion hardware in the thoracic spine. Sequela of remote lumbar spine fracture. ADDITIONAL FINDINGS: None. IMPRESSION: No acute findings within the abdomen or pelvis. Possible gastroenteritis with fluid in the small mary l and proximal colon. Normal appendix. Incidental findings as noted above.
--- NOTE | 2024-08-17 12:32 | ER ---
Nurse's Notes [facility] Name: Siri Rutherford Age: 58 yrs Sex: Female : 1965 Arrival Date: 08/17/2024 Time: 09:24 Bed 15 Private MD: Diagnosis: Abdominal pain, unspecified Presentation: 08/17 09:28 Chief complaint: Chief complaint: EMS states: RLQ pain and nausea that started at 0200 ph today, EMS gave 4 mg Zofran IVP. 09:33 Coronavirus screen: Vaccine status: Patient reports being unvaccinated. Ebola Screen: ph No symptoms or risks identified at this time. Initial Sepsis Screen: Does the patient meet any 2 criteria? No. Patient's initial sepsis screen is negative. Does the patient have a suspected source of infection? No. Patient's initial sepsis screen is negative. Risk Assessment: Do you want to hurt yourself or someone else? Patient reports no desire to harm self or others. Onset of symptoms was August 17, 2024. 09:33 Method Of Arrival: EMS: [facility] 09:33 Acuity: MARILU 3 ph Triage Assessment: 09:36 General: Appears in no apparent distress. uncomfortable, obese, well groomed, Behavior ph is calm, cooperative, appropriate for age, Denies fever. Pain: Complains of pain in right lower quadrant. Neuro: Level of Consciousness is awake, alert, obeys commands, Oriented to person, place, time, situation. Cardiovascular: Capillary refill < 3 seconds in bilateral fingers Patient's skin is warm and dry. Respiratory: Airway is patent Respiratory effort is even, unlabored. GI: Abdomen is non-distended, Bowel sounds present X 4 quads. Abdomen is tender to palpation in right lower quadrant Reports lower abdominal pain, nausea. : No signs and/or symptoms were reported regarding the genitourinary system. Derm: Skin is pink, warm \T\ dry. Historical: - Allergies: 09:38 Bentyl; ph 09:38 Compazine; ph 09:38 Demerol (Itching); ph 09:38 Latex; ph - PMHx: 09:38 Arthritis; Chronic pain; Degenerative disc disease; Diverticulitis; Hidradenitis ph Suppurativa; Hypertensive disorder; lymphedema; Pancreatitis; - PSHx: 09:38 back sx; Cholecystectomy; hysterectomy; multiple orthopedic surgeries; ph - Immunization history:: Adult Immunizations unknown. - Infectious Disease History:: Denies. - Social history:: Smoking status: Patient denies any tobacco usage or history of. Screenin:38 [facility] ED Fall Risk Assessment (Adult) History of falling in the last 3 months, ph including since admission No falls in past 3 months (0 pts) Confusion or Disorientation No (0 pts) Intoxicated or Sedated No (0 pts) Impaired Gait No (0 pts) Mobility Assist Device Used No (0 pt) Altered Elimination No (0 pt) Score/Fall Risk Level 0 - 2 = Low Risk Oriented to surroundings, Maintained a safe environment, Provided non-skid footwear. Abuse screen: Denies threats or abuse. Denies injuries from another. Nutritional screening: No deficits noted. Tuberculosis screening: No symptoms or risk factors identified. Assessment: 09:37 General: SEE TRIAGE ASSESSMENT. ph 11:00 Reassessment: Patient appears in no apparent distress at this time. Patient and/or ph family updated on plan of care and expected duration. Pain level reassessed. Patient is alert, oriented x 3, equal unlabored respirations, skin warm/dry/pink. 12:58 Reassessment: Patient appears in no apparent distress at this time. Patient and/or ph family updated on plan of care and expected duration. Pain level reassessed. Patient is alert, oriented x 3, equal unlabored respirations, skin warm/dry/pink. Vital Signs: 09:33 BP 148 / 87; Pulse 77; Resp 18; Temp 98; Pulse Ox 98% on R/A; Weight 129.27 kg; Height ph 5 ft. 5 in. ; 10:48 BP 141 / 79; Pulse 89; Resp 18; Pulse Ox 95% on R/A; ph 12:00 BP 142 / 80; Pulse 87; Resp 18; Pulse Ox 99% on R/A; ph 12:59 BP 132 / 89; Pulse 85; Resp 18; Temp 97.9; Pulse Ox 98% on R/A; ph 09:33 Body Mass Index 47.43 (129.27 kg, 165.1 cm) ph ED Course: :25 Patient arrived in ED. ss 09:25 Irina Gunn [facility]-C [facility] kb 09:25 Singh Parker MD is Attending Physician. kb 09:28 Sammie Swartz, RN is Primary Nurse. ph 09:36 Triage completed. ph 09:37 Arm band placed on Patient placed in an exam room, on a stretcher, on pulse oximetry. ph 09:39 Patient has correct armband on for positive identification. Bed in low position. Call ph light in reach. Side rails up X 1. Pulse ox on. NIBP on. 10:11 CMP Sent. ph 10:11 Lipase Sent. ph 11:08 CT Abd/Pelvis - IV Contrast Only In Process Unspecified. EDMS 12:59 No provider procedures requiring assistance completed. IV discontinued, intact, ph bleeding controlled, No redness/swelling at site. Pressure dressing applied. Administered Medications: 09:55 Drug: NS 0.9% IV 1000 ml IV at 1 bolus Per protocol; to be given as a bolus over 60 ph minutes {Note: EMS FLUIDS GIVEN.} Route: IV; Rate: 1 bolus; Site: right antecubital; 10:51 Follow up: Response: No adverse reaction; IV Status: Completed infusion; IV Intake: ph 1000ml 09:55 Drug: morphine IVP or IV 4 mg IVP once over 4 mins Route: IVP; Infused Over: 4 mins; ph Site: right antecubital; 10:51 Follow up: Response: No adverse reaction; Pain is unchanged, physician notified ph 10:51 Drug: HYDROmorphone IVP 1 mg IVP once Route: IVP; Site: right antecubital; ph 10:52 Drug: Ondansetron IVP 4 mg IVP once; over 2 minutes Route: IVP; Site: right antecubital;ph Medication: 09:39 VIS not applicable for this client. ph Intake: 10:51 IV: 1000ml; Total: 1000ml. ph Outcome: 12:31 Discharge ordered by . kb 12:59 Discharged to home ambulatory, with family, ph 12:59 Condition: good 12:59 Discharge instructions given to patient, Instructed on discharge instructions, follow up and referral plans. Demonstrated understanding of instructions, follow-up care, 13:43 Patient left the ED. ph Signatures: Dispatcher [employer] EDMS Irina Gunn, CYDNEY-C CYDNEY-Esme Reynoso RN RN Sammie Swartz, LEXI RN ph Corrections: (The following items were deleted from the chart) 09:36 09:28 Chief complaint: ph ph 10:10 10:10 morphine IVP or IV 4 mg IVP in right antecubital over 4 mins ph ph 10:11 10:10 NS 0.9% IV 1000 ml IV at 1 bolus in right antecubital; EMS FLUIDS GIVEN ph ph
--- NOTE | 2024-08-17 12:32 | EDPHYS ---
Physician Documentation [facility] Name: Siri Rutherford Age: 58 yrs Sex: Female : 1965 Arrival Date: 08/17/2024 Time: 09:24 Bed 15 Private MD: ED Physician Singh Parker HPI: 08/17 09:30 This 58 yrs old Female presents to ER via Unassigned with complaints of Abdominal Pain. kb 09:30 Pt is a 58 year old female who presents for RLQ pain that started at 0200. Reports kb nausea. Denies vomiting, diarrhea. States she has a history of pancreatitis and feels like this pain is similar. Historical: - Allergies: 09:38 Bentyl; ph 09:38 Compazine; ph 09:38 Demerol (Itching); ph 09:38 Latex; ph - PMHx: 09:38 Arthritis; Chronic pain; Degenerative disc disease; Diverticulitis; Hidradenitis ph Suppurativa; Hypertensive disorder; lymphedema; Pancreatitis; - PSHx: 09:38 back sx; Cholecystectomy; hysterectomy; multiple orthopedic surgeries; ph - Immunization history:: Adult Immunizations unknown. - Infectious Disease History:: Denies. - Social history:: Smoking status: Patient denies any tobacco usage or history of. ROS: 09:30 Constitutional: As per HPI kb Exam: 09:30 Constitutional: This is a well developed, well nourished patient who is awake, alert, kb and in no acute distress. Head/Face: Normocephalic, atraumatic. ENT: Moist Mucous membranes Cardiovascular: Regular rate Respiratory: Respirations even and unlabored. No increased work of breathing. Talking in full sentences Skin: Warm, dry with normal turgor. Normal color. MS/ Extremity: Pulses equal, no cyanosis. Neurovascular intact. Full, normal range of motion. Neuro: Awake and alert, GCS 15, oriented to person, place, time, and situation. 09:30 Abdomen/GI: Inspection: abdomen appears normal, Bowel sounds: normal, Palpation: soft, in all quadrants, mild abdominal tenderness, in the right lower quadrant, Vital Signs: 09:33 BP 148 / 87; Pulse 77; Resp 18; Temp 98; Pulse Ox 98% on R/A; Weight 129.27 kg; Height ph 5 ft. 5 in. ; 10:48 BP 141 / 79; Pulse 89; Resp 18; Pulse Ox 95% on R/A; ph 12:00 BP 142 / 80; Pulse 87; Resp 18; Pulse Ox 99% on R/A; ph 12:59 BP 132 / 89; Pulse 85; Resp 18; Temp 97.9; Pulse Ox 98% on R/A; ph 09:33 Body Mass Index 47.43 (129.27 kg, 165.1 cm) ph MDM: 09:25 Medical Screening Exam initiated kb 09:32 Data reviewed: vital signs, nurses notes. Historians other than the Patient: EMS: [facility]. 12:33 Differential diagnosis: appendicitis, non-specific abd pain, pancreatitis. Management kb of patient was discussed with the following: Wood Polisher: Dr Major consulted and saw pt in ED. Counseling: I had a detailed discussion with the patient and/or guardian regarding the historical points, exam findings, and any diagnostic results supporting the discharge/admit diagnosis, lab results, radiology results, the need for outpatient follow up, a family practitioner, to return to the emergency department if symptoms worsen or persist or if there are any questions or concerns that arise at home. 08/17 09:26 Order name: CBC with Diff; Complete Time: 10:08 kb 08/17 09:26 Order name: CMP; Complete Time: 10:33 kb 08/17 09:26 Order name: Lipase; Complete Time: 10:33 kb 08/17 09:26 Order name: Urinalysis w/ reflexes; Complete Time: 13:09 kb 08/17 09:26 Order name: CT Abd/Pelvis - IV Contrast Only; Complete Time: 11:31 kb 08/17 09:26 Order name: IV Saline Lock; Complete Time: 10:11 kb 08/17 09:26 Order name: Labs collected and sent; Complete Time: 10:11 kb Administered Medications: 09:55 Drug: NS 0.9% IV 1000 ml IV at 1 bolus Per protocol; to be given as a bolus over 60 ph minutes {Note: EMS FLUIDS GIVEN.} Route: IV; Rate: 1 bolus; Site: right antecubital; 10:51 Follow up: Response: No adverse reaction; IV Status: Completed infusion; IV Intake: ph 1000ml 09:55 Drug: morphine IVP or IV 4 mg IVP once over 4 mins Route: IVP; Infused Over: 4 mins; ph Site: right antecubital; 10:51 Follow up: Response: No adverse reaction; Pain is unchanged, physician notified ph 10:51 Drug: HYDROmorphone IVP 1 mg IVP once Route: IVP; Site: right antecubital; ph 10:52 Drug: Ondansetron IVP 4 mg IVP once; over 2 minutes Route: IVP; Site: right antecubital;ph Disposition Summary: 08/17/24 12:31 Discharge Ordered Notes: Location: Home kb Condition: Stable kb Diagnosis - Abdominal pain, unspecified kb Followup: kb - With: Emergency Department - When: As needed - Reason: Worsening of condition Followup: kb - With: Private Physician - When: 2 - 3 days - Reason: Recheck today's complaints, Continuance of care, Re-evaluation by your physician Discharge Instructions: - Discharge Summary Sheet kb - Abdominal Pain, Adult, [id number] kb Forms: - Medication Reconciliation Form kb - Antibiotic Education kb - Prescription Opioid Use kb - Patient Portal Instructions kb - Leadership Thank You Letter kb Addendum: 08/19/2024 09:02 Co-signature as Attending Physician, Singh Parker MD I reviewed the patient's care r n provided by the Advanced Practice Provider and agree with the diagnosis and treatment plan. Signatures: Dispatcher [employer] Irina Moody, LAND SURVEYING MANAGER-C LAND SURVEYING MANAGER-Ckb Singh Parker MD MD rn VerbenaSammie RN RN
[2024-08-17 13:00] LABS: Sqamous Epithelial <5 /HPF (None Seen); Urine Bacteria <20 /HPF (<20); Urine Bilirubin NEGATIVE (Negative); Urine Blood Negative (Negative); Urine Clarity Clear (Clear); Urine Color Light-Yellow (Yellow); Urine Culture Reflex Order NOT NEEDED; Urine Glucose NEGATIVE (Negative); Urine Ketones NEGATIVE (Negative); Urine Microscopic Reflex YN ORDER UMIC; Urine Mucus Slight /HPF (None Seen); Urine Nitrite NEGATIVE (Negative); Urine Protein TRACE (Negative); Urine RBC <5 /HPF (None Seen); Urine Urobilinogen Normal (Normal); Urine WBC <5 /HPF (<5)
[2024-08-17 13:08] LABS: Specific Gravity > 1.030 (1.005-1.030)
[2024-08-19 17:48] VITALS: BP 132/89; TEMP 97.9; O2SAT 98
== END 2024-08-17 13:43 | disposition home or self-care (01) ==
LOC: ER 09:24
DX: R10.31 Right lower quadrant pain (principal); R11.0 Nausea
CPT/HCPCS: 96361; 85025; 81001; 36415; 83690; 80053; 74177; 96375; 96374; 99284; Q9967; J1171; J2405